=== PATIENT | female | born 1980 | race American Indian/Alaskan Native ===

== ENCOUNTER 2017-08-30 18:56 | Inpatient (IN) | payer OTHER ==
[2017-08-30 18:56] VITALS: BMI 27.3
[2017-08-30] MEDS ORDERED: Sodium Chloride 0.9% 1,000 ML IV STA ×2 (19:13→19:15)
[2017-08-30 19:41] LABS: BASO # 0.1 K/uL (0.0-0.2); BASO % 0.4 % (0.0-2.0); EOS # 0.1 K/uL (0.0-0.7); EOS % 0.5 % (0.0-4.0); HEMATOCRIT 24.3 % (34.0-47.0); LYMPH # 2.4 K/uL (1.0-4.3); LYMPH % 16.8 % (20.0-40.0); MEAN CORPUSCULAR HEMOGLOBIN 31.8 pg (27.0-31.0); MEAN CORPUSCULAR HGB CONC 33.1 g/dL (33.0-37.0); MEAN PLATELET VOLUME 8.1 fL (7.2-11.7); MONO # 0.6 K/uL (0.0-0.8); RED CELL DISTRIBUTION WIDTH 16.5 % (11.5-14.5)
[2017-08-30 19:44] LABS: WHITE BLOOD COUNT 14.5 K/uL (4.8-10.8)
[2017-08-30 19:45] LABS: MEAN CELL VOLUME 96.2 fL (81.0-99.0); RBC URINE 1 /hpf (0-3); URINE BACTERIA RARE (<OCC); URINE BILIRUBIN NEGATIVE (NEGATIVE); URINE BLOOD NEGATIVE (NEGATIVE); URINE GLUCOSE (UA) NORMAL (Normal); URINE KETONE TRACE mg/dL (NEGATIVE); URINE LEUKOCYTE ESTERASE NEG Leu/uL (Negative); URINE PROTEIN NEGATIVE (NEGATIVE); WBC URINE 4 /hpf (0-5)
[2017-08-30 19:46] LABS: URINE COLOR YELLOW (YELLOW)
[2017-08-30 19:49] LABS: INR 1.3
[2017-08-30 19:50] LABS: CHLORIDE 79 mmol/L (98-107)
[2017-08-30 19:51] LABS: SODIUM 121 mmol/L (132-148)
[2017-08-30 19:52] LABS: POTASSIUM 2.5 mmol/L (3.6-5.2)
[2017-08-30 19:53] LABS: ALKALINE PHOSPHATASE 117 U/L (38-126); ALT/SGPT 28 U/L (9-52); AST/SGOT 72 U/L (14-36); BILIRUBIN,TOTAL 1.1 mg/dL (0.2-1.3); BLOOD UREA NITROGEN 10 mg/dL (7-17); CARBON DIOXIDE 15 mmol/L (22-30); GFR AFRICAN-AMERICAN > 60; TOTAL PROTEIN 6.5 g/dL (6.3-8.3)
[2017-08-30 19:54] LABS: ALCOHOL SERUM 16 mg/dl (0-10); CALCIUM 8.2 mg/dl (8.6-10.4); GLUCOSE,RANDOM 175 mg/dL (65-105); MAGNESIUM 1.3 mg/dL (1.6-2.3)
[2017-08-30 19:57] LABS: ABG MECHANICAL RATE 16; ARTERIAL BLOOD GAS MODE PRVC; ATERIAL BLOOD GAS PEEP 5; DRAW SITE RBA
[2017-08-30] MEDS ORDERED: Magnesium Sulfate 1 gm in D5W 1 GM/100 ML BAG IVPB STA (19:57)
[2017-08-30] MEDS ORDERED: Magnesium Sulfate 1 gm in D5W 1 GM/100 ML BAG IVPB ONE (20:09)
--- NOTE | 2017-08-30 20:37 | CP.PCM.CON ---
History of Present Illness - History of Present Illness History of Present Illness: 36yo M. PMHx severe ETOH abuse. Found unconscious by today. EMS called , asystole >> compressions >> PEA >> 2 rounds of epinephrine >> ROSC. Brought into ED unconscious. Hypothermia protocol to be initiated in ICU. Review of Systems - Review of Systems Systems not reviewed;Unavailable: Altered Mental Status (unconscious) Past Patient History - Infectious Disease Hx of Infectious Diseases: None - Past Social History Smoking Status: Light Smoker < 10 Cigarettes Daily - CARDIAC Hx Cardiac Disorders: No Other/Comment: As per family member : cardiac history of heart going "Fast" - PULMONARY Hx Respiratory Disorders: No - NEUROLOGICAL Hx Neurological Disorder: No - HEENT Hx HEENT Problems: No - RENAL Hx Chronic Kidney Disease: No - ENDOCRINE/METABOLIC Hx Endocrine Disorders: No - HEMATOLOGICAL/ONCOLOGICAL Hx Blood Disorders: Yes (THROMBOCYTOPENIA) Hx Anemia: Yes Hx Blood Transfusions: Yes - INTEGUMENTARY Hx Dermatological Problems: Yes (HAS MULTIPLE HEALED OPEN LESION TO UPPER ARM, DARKENED SKIN DISCOLOR LLE) Hx Eczema: Yes Other/Comment: H/O OF HAVING HEAD LICE - MUSCULOSKELETAL/RHEUMATOLOGICAL Hx Musculoskeletal Disorders: No Hx Falls: Yes Hx Unsteady Gait: Yes - GASTROINTESTINAL Hx Gastrointestinal Disorders: No (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) HX Swallowing Problems: Yes (SORE THROAT 9-6-14) - GENITOURINARY/GYNECOLOGICAL Hx Genitourinary Disorders: Yes (6 ABORTIONS,3 CHILDREN ,H/O OF C SECTIONS X3) Other/Comment: MENORRHAGIA - PSYCHIATRIC Hx Psychophysiologic Disorder: Yes (ALCOHOLISM,2 DRINKS A DAY,SMOKES CIGARETTES PPD) Hx Depression: Yes Hx Emotional Abuse: No Hx Physical Abuse: No Hx Substance Use: No - SURGICAL HISTORY Hx Section: Yes - ANESTHESIA Hx Anesthesia: Yes Hx Anesthesia Reactions: No Hx Malignant Hyperthermia: No Meds Allergies/Adverse Reactions: Allergies Allergy/AdvReac Type Severity Reaction Status Date / Time PORK Allergy NAUSEA Verified 01/05/17 11:15 tomato Allergy NAUSEA Verified 01/05/17 11:17 wheat Allergy NAUSEA Verified 01/05/17 11:16 - Medications Medications: Current Medications Potassium Chloride (Potassium Chloride 20 Meq/100 Ml) 20 meq in 100 mls @ 50 mls/hr IVPB ONCE STA Stop: 08/30/17 21:56 Physical Exam - Head Exam Head Exam: ATRAUMATIC, NORMAL INSPECTION, NORMOCEPHALIC - Eye Exam Pupil Exam: Fixed - Neck Exam Neck exam: Positive for: Normal Inspection - Respiratory Exam Respiratory Exam: Clear to Auscultation Bilateral, NORMAL BREATHING PATTERN (on vent) - GI/Abdominal Exam GI & Abdominal Exam: Normal Bowel Sounds, Soft. absent: Tenderness - Neurological Exam Additional comments: comatose Results - Vital Signs Recent Vital Signs: Last Vital Signs Temp Pulse 104 H 08/30/17 19:19 Resp BP Pulse Ox - Labs Result Diagrams: 08/30/17 19:30 08/30/17 19:30 Labs: Laboratory Results - last 24 hr 08/30/17 08/30/17 08/30/17 19:01 19:30 19:30 WBC 14.5 H D RBC 2.52 L Hgb 8.0 L D Hct 24.3 L MCV 96.2 D MCH 31.8 H MCHC 33.1 RDW 16.5 H Plt Count 255 D MPV 8.1 Neut % (Auto) 78.3 H Lymph % (Auto) 16.8 L [place] % (Auto) 4.0 Eos % (Auto) 0.5 Baso % (Auto) 0.4 Neut # 11.4 H Lymph # 2.4 [place] # 0.6 Eos # 0.1 Baso # 0.1 PT 14.4 H INR 1.3 APTT 28 Puncture Site pCO2 pO2 HCO3 ABG pH ABG Total CO2 ABG O2 Saturation ABG Base Excess Stephen Test ABG Potassium A-a O2 Difference Respiratory Index Glucose Lactate Vent Mode Mechanical Rate FiO2 Tidal Volume PEEP Crit Value Called To Crit Value Called By Crit Value Read Back Blood Gas Notified Time Sodium Potassium Chloride Carbon Dioxide Anion Gap BUN Creatinine Est GFR ( Amer) Est GFR (Non-Af Amer) POC Glucose (mg/dL) 219 H Random Glucose Calcium Magnesium Total Bilirubin AST ALT Alkaline Phosphatase Total Creatine Kinase CK-MB (Mass) Troponin I, Quant NT-Pro-B Natriuret Pep Total Protein Albumin Globulin Albumin/Globulin Ratio Beta HCG, Quant Arterial Blood Potassium Urine Color Urine Clarity Urine pH Ur Specific [place] Urine Protein Urine Glucose (UA) Urine Ketones Urine Blood Urine Nitrate Urine Bilirubin Urine Urobilinogen Ur Leukocyte Esterase Urine WBC (Auto) Urine RBC (Auto) Urine Bacteria Urine HCG, Qual Urine Opiates Screen Urine Methadone Screen Ur Barbiturates Screen Ur Phencyclidine Scrn Ur Amphetamines Screen U Benzodiazepines Scrn U Oth Cocaine Metabols U Cannabinoids Screen Alcohol, Quantitative Serum Ketones 08/30/17 08/30/17 08/30/17 19:30 19:30 19:30 WBC RBC Hgb Hct MCV MCH MCHC RDW Plt Count MPV Neut % (Auto) Lymph % (Auto) [place] % (Auto) Eos % (Auto) Baso % (Auto) Neut # Lymph # [place] # Eos # Baso # PT INR APTT Puncture Site pCO2 pO2 HCO3 ABG pH ABG Total CO2 ABG O2 Saturation ABG Base Excess Stephen Test ABG Potassium A-a O2 Difference Respiratory Index Glucose Lactate Vent Mode Mechanical Rate FiO2 Tidal Volume PEEP Crit Value Called To Crit Value Called By Crit Value Read Back Blood Gas Notified Time Sodium 121 L Potassium 2.5 L* Chloride 79 L Carbon Dioxide 15 L Anion Gap 30 H BUN 10 Creatinine 0.5 L Est GFR ( Amer) > 60 Est GFR (Non-Af Amer) > 60 POC Glucose (mg/dL) Random Glucose 175 H Calcium 8.2 L Magnesium 1.3 L Total Bilirubin 1.1 AST 72 H ALT 28 Alkaline Phosphatase 117 Total Creatine Kinase 28 L CK-MB (Mass) 0.28 Troponin I, Quant < 0.0120 NT-Pro-B Natriuret Pep 48.5 Total Protein 6.5 Albumin 3.3 L Globulin 3.2 Albumin/Globulin Ratio 1.0 Beta HCG, Quant < 2.39 Arterial Blood Potassium Urine Color Yellow Urine Clarity Clear Urine pH 6.0 Ur Specific [place] 1.011 Urine Protein Negative Urine Glucose (UA) Normal Urine Ketones Trace Urine Blood Negative Urine Nitrate Negative Urine Bilirubin Negative Urine Urobilinogen 4.0 H Ur Leukocyte Esterase Neg Urine WBC (Auto) 4 Urine RBC (Auto) 1 Urine Bacteria Rare Urine HCG, Qual Negative Urine Opiates Screen Negative Urine Methadone Screen Negative Ur Barbiturates Screen Negative Ur Phencyclidine Scrn Negative Ur Amphetamines Screen Negative U Benzodiazepines Scrn Positive U Oth Cocaine Metabols Negative U Cannabinoids Screen Positive Alcohol, Quantitative 16 H Serum Ketones Negative 08/30/17 19:54 WBC RBC Hgb Hct MCV MCH MCHC RDW Plt Count MPV Neut % (Auto) Lymph % (Auto) [place] % (Auto) Eos % (Auto) Baso % (Auto) Neut # Lymph # [place] # Eos # Baso # PT INR APTT Puncture Site Rba pCO2 26 L pO2 459 H HCO3 20.8 L ABG pH 7.43 ABG Total CO2 18.1 L ABG O2 Saturation 100.5 H ABG Base Excess -5.4 L Stephen Test Na ABG Potassium 1.7 L* A-a O2 Difference 222.0 Respiratory Index 0.5 Glucose 145 H Lactate 8.1 H* Vent Mode Prvc Mechanical Rate 16 FiO2 100.0 Tidal Volume 450 PEEP 5 Crit Value Called To Mora tom Crit Value Called By Mian Crit Value Read Back Y Blood Gas Notified Time 1956 Sodium 129.0 L Potassium Chloride 94.0 L Carbon Dioxide Anion Gap BUN Creatinine Est GFR ( Amer) Est GFR (Non-Af Amer) POC Glucose (mg/dL) Random Glucose Calcium Magnesium Total Bilirubin AST ALT Alkaline Phosphatase Total Creatine Kinase CK-MB (Mass) Troponin I, Quant NT-Pro-B Natriuret Pep Total Protein Albumin Globulin Albumin/Globulin Ratio Beta HCG, Quant Arterial Blood Potassium 1.7 L* Urine Color Urine Clarity Urine pH Ur Specific [place] Urine Protein Urine Glucose (UA) Urine Ketones Urine Blood Urine Nitrate Urine Bilirubin Urine Urobilinogen Ur Leukocyte Esterase Urine WBC (Auto) Urine RBC (Auto) Urine Bacteria Urine HCG, Qual Urine Opiates Screen Urine Methadone Screen Ur Barbiturates Screen Ur Phencyclidine Scrn Ur Amphetamines Screen U Benzodiazepines Scrn U Oth Cocaine Metabols U Cannabinoids Screen Alcohol, Quantitative Serum Ketones Assessment & Plan (1) Cardiac arrest Assessment and Plan: Neuro: Patient in comatose state, status post cardiac arrest. (08/30) Initiating hypothermia protocol. Pulm: Acute respiratory failure, intubated and on vent. CV: Hemodynamically stable Hem: No acute issues Renal: Hypokalemic and hyponatremic, will supplement. NS@150. Endo: No acute issues, will monitor blood glucose. GI: Nothing by mouth ID: No acute issues no obvious source of infection. DVT proph - heparin subcutaneous GI proph - Protonix IV cheema for strict I/O's during acute illness Code status - full code Critical Care Time spent 35 minutes The documented time is cumulative and includes review of patient data/exams/labs /chart review and examination of the patient on rounds and throughout the day; time is exclusive of any procedures or teaching time. Status: Acute
[2017-08-30] MEDS: Sodium Chloride 0.9% 1,000 ML IV SCH (20:51)
[2017-08-30] MEDS ORDERED: Iodixanol 320 MG/ML 100 ML BOTTLE IV ONE (20:59)
--- NOTE | 2017-08-30 21:02 | C.PDOC ---
History Of Present Illness Pt was found by unresponsive in bathroom. He lowered her to the ground and called 911. EMS found pt in asystole and started ACLS and regained pulses. Upon arrival to the ED pt is hypotensive and tachycardic. Time Seen by Provider: 08/30/17 19:11 Chief Complaint (Nursing): Cardiac Arrest History Per: EMS Reason For Code Blue: Full Arrest Circumstances: Brought To ED By EMS Arrest Witnessed By: Family CPR Initiated Prior To MD Arrival?: Yes Down-Time Before ACLS: Unknown Treatment Initiated Prior To MD Arrival: Yes: CPR, BVM Ventilations, Intubation , ACLS Medication Initiation, Other (IO access) Medications Given Prior To MD Arrival: Yes: Epinephrine - Initial Findings Mentation: Unresponsive Rhythm: Asystole Past Medical History Reviewed: Historical Data, Nursing Documentation, Vital Signs Vital Signs: Last Vital Signs Temp Pulse 104 H 08/30/17 19:19 Resp BP Pulse Ox - Medical History PMH: Anemia, Depression, Pneumonia Other PMH: Alcohol abuse. - [facility] Procedures COLONOSCOPY (11/25/13) ESOPHAGOGASTRODUODENOSCOPY [EGD] W/CLOSED BIOPSY (11/25/13) PACKED CELL TRANSFUSION (07/19/14) THERAPEUTIC ERYTHROCYTAPHERESIS (11/25/13) Family History: States: Unknown Family Hx - Social History Hx Tobacco Use: Yes Hx Alcohol Use: Yes (LAST DRINK PINT OF [place] 9-3-14.2 DRINKS A DAY.) Hx Substance Use: No Review Of Systems Review Of Systems: ROS cannot be obtained secondary to pt's inabilty to answer questions. Physical Exam - Physical Exam Appears: Other (Unresponsive. ) Skin: Dry, Pale Head: Atraumatic Eye(s): bilateral: Other (pupils small but equal) Oral Mucosa: Other (Intubated) Neck: Normal ROM, No Step Off Deformity, Supple Chest: Symmetrical, No Deformity Cardiovascular: Rhythm Regular Respiratory: Normal Breath Sounds (with bagging) Gastrointestinal/Abdominal: Soft Extremity: Normal ROM, No Deformity, Other (IO in left tibia) Neurological/Psych: No Response To Commands Pain Response: No Response To Pain ED Course And Treatment - Laboratory Results Result Diagrams: 08/30/17 19:30 08/30/17 19:30 Lab Interpretation: Abnormal Interpretation Of Abnormal: Anemia. Hypokalemia. Hypomagnesemia. Urine POC: Negative ECG: Interpreted By Me, Viewed By Me ECG Rhythm: Sinus Tachycardia, Nonspecific Changes ECG Interpretation: Abnormal Interpretation Of ECG: Prolonged QT Rate From EC - Radiology CXR: Interpreted by Me, Viewed By Me CXR Interpretation: Yes: No Acute Disease, Other (ETT in place) - Physician Consult Information Physician Contacted: Jimbo Pete (ICU) Outcome Of Conversation: He accepted pt to ICU. Progress - Interventions Interventions:: Observation, Intravenous fluid, Oxygen - Medications Administered Intravenous: Other (KCl, Mg.) - Data Reviewed Data Reviewed: Lab, Diagnostic imaging, EKG, Old records - Patient Status Patient status: Partially improved, Critical - Critical Care Citical Care: Excluding Proc Time Critical Care Time: 60 minutes - Continuity of Care Discussed patient case with:: Family-HIPPA compliant, ED Nurse, On-call PMD-pt unassigned Discussed pt. case with datastage consultant/specialty: Pulmonary/Crit. Care - Patient Plan Patient Plan: Admission, ICU Disposition Discussed With : Phoenix Caballero Comment: She accepted pt on her service. Doctor Will See Patient In The: Hospital Counseled Patient/Family Regarding: Studies Performed, Diagnosis - Disposition Disposition: HOSPITALIZED Disposition Time: 20:30 Condition: CRITICAL - Clinical Impression Clinical Impression: Hypokalemia, Cardiac arrest, Anemia
--- NOTE | 2017-08-30 22:13 | CT ---
EXAM: CT Head Without Intravenous Contrast EXAM DATE/TIME: 08/30/2017 8:51 PM CLINICAL HISTORY: 36 years old, female; Signs and symptoms; Other: Unresponsive; Additional info: Cardiac arrest, R/O ich TECHNIQUE: Axial computed tomography images of the head/brain without intravenous contrast. All CT scans at this facility use one or more dose reduction techniques, viz.: automated exposure control; ma/kV adjustment per patient size (including targeted exams where dose is matched to indication; i.e. head); or iterative reconstruction technique. COMPARISON: No relevant prior studies available. FINDINGS: Endotracheal tube. No intracranial hemorrhage. No intracranial edema. No evidence of infarct. Trace mucosal thickening in the ethmoid sinuses. The mastoid air cells are clear. IMPRESSION: No acute findings.
--- NOTE | 2017-08-30 22:50 | CT ---
EXAM: CT Abdomen and Pelvis With Intravenous Contrast EXAM DATE/TIME: 08/30/2017 8:51 PM CLINICAL HISTORY: 36 years old, female; Pain; Abdominal pain; Generalized; Additional info: S/P cardiac arrest, R/O hemorrhage TECHNIQUE: Axial computed tomography images of the abdomen and pelvis with intravenous contrast. All CT scans at this facility use one or more dose reduction techniques, viz.: automated exposure control; ma/kV adjustment per patient size (including targeted exams where dose is matched to indication; i.e. head); or iterative reconstruction technique. Coronal and sagittal reformatted images were created and reviewed. CONTRAST: 100 mL of visipaque 320 administered intravenously. COMPARISON: No relevant prior studies available. FINDINGS: There is bibasilar atelectasis. The liver is decreased in attenuation consistent with fatty infiltration. The spleen and kidneys are normal. The gallbladder is markedly dilated and contains small gallstones. The pancreas is markedly abnormal being enlarged and heterogeneous with stranding in the surrounding fat. Stranding suggests at least some degree of inflammatory/infectious process. Within the pancreatic body, there are numerous large areas of low attenuation interspersed within the pancreatic parenchyma. Necrotic or hemorrhagic pancreatitis would be possible. Neoplasm would also be a consideration. Along the superior aspect the body/tail junction, is a rounded 5 x 3.7 cm area of fluid density. Pseudocyst, abscess, and neoplasm are possibilities. There are loops of fluid filled small bowel in the right abdomen and pelvis. There is fluid and stool throughout portions of the colon. Findings suggest some degree of enteritis. Free fluid is present in the pelvis A normal appendix is identified axial series 2 images 48 through 55. Andino catheter. Pelvic phleboliths. No aortic aneurysm or dissection. IMPRESSION: Markedly abnormal pancreas being enlarged with numerous areas of low attenuation some of which are dispersed within the parenchyma and some of which are rounded collections as discussed above. Necrotic/hemorrhagic pancreatitis and cystic neoplasms would both be considerations. Correlation with history as well correlation with any prior studies would be helpful. Posterior gastric wall thickening which could be either a primary or secondary process. Cholelithiasis. Enteritis involving small and large bowel.
[2017-08-30] MEDS: Thiamine 100 mg/ml Inj IV SCH (23:00)
[2017-08-31] MEDS ORDERED: Midazolam 2 MG/2 ML VIAL IVP PRN (00:09)
[2017-08-31 01:34] LABS: CHLORIDE 85 mmol/L (98-107); POTASSIUM 2.9 mmol/L (3.6-5.2); SODIUM 125 mmol/L (132-148)
[2017-08-31 01:37] LABS: BLOOD UREA NITROGEN 9 mg/dL (7-17); CARBON DIOXIDE 22 mmol/L (22-30); GFR AFRICAN-AMERICAN > 60
[2017-08-31 01:38] LABS: CALCIUM 7.8 mg/dl (8.6-10.4); GLUCOSE,RANDOM 153 mg/dL (65-105); MAGNESIUM 1.3 mg/dL (1.6-2.3); PHOSPHOROUS 2.2 mg/dL (2.5-4.5)
[2017-08-31 02:20] LABS: IRON 227 ug/dL (37-170)
[2017-08-31] MEDS: Sodium Chloride 0.9% 1,000 ML IV SCH ×4 (04:10→17:48)
[2017-08-31] MEDS: Midazolam 2 MG/2 ML VIAL IVP PRN ×2 (04:27→07:00)
[2017-08-31] MEDS: levETIRAcetam 500 MG in Sodium Chloride 0.9% 100 ML IVPB SCH ×2 (04:28→16:44)
[2017-08-31 05:37] LABS: ABG ALLEN TEST POS; ABG MECHANICAL RATE 14; ARTERIAL BLOOD GAS MODE PRVC; ATERIAL BLOOD GAS PEEP 5; CARBOXYHEMOGLOBIN 1.6 % (0.5-1.5); DRAW SITE L RAD; HHB -0.1 % (0.0-5.0); METHEMOGLOBIN 1.6 % (0.0-3.0)
[2017-08-31] MEDS: Magnesium Sulfate 1 gm in D5W 1 GM/100 ML BAG IVPB SCH ×6 (06:24→07:43)
[2017-08-31 06:39] LABS: BASO % 0.3 % (0.0-2.0); EOS % 0.1 % (0.0-4.0); HEMATOCRIT 23.1 % (34.0-47.0); LYMPH # 0.8 K/uL (1.0-4.3); LYMPH % 7.1 % (20.0-40.0); MEAN CELL VOLUME 96.1 fL (81.0-99.0); MEAN CORPUSCULAR HEMOGLOBIN 32.1 pg (27.0-31.0); MEAN CORPUSCULAR HGB CONC 33.4 g/dL (33.0-37.0); MEAN PLATELET VOLUME 7.8 fL (7.2-11.7); MONO # 0.8 K/uL (0.0-0.8); NRBC % 0.1 % (0.0-2.0); PLATELET COUNT 156 K/uL (130-400); RED CELL DISTRIBUTION WIDTH 16.6 % (11.5-14.5); WHITE BLOOD COUNT 11.6 K/uL (4.8-10.8)
[2017-08-31 06:51] LABS: CHLORIDE 88 mmol/L (98-107); SODIUM 124 mmol/L (132-148)
[2017-08-31 06:53] LABS: ALB/GLOB RATIO 0.9 (1.0-2.1); ALKALINE PHOSPHATASE 114 U/L (38-126); AST/SGOT 65 U/L (14-36); BILIRUBIN,TOTAL 1.7 mg/dL (0.2-1.3); BLOOD UREA NITROGEN 10 mg/dL (7-17); CARBON DIOXIDE 24 mmol/L (22-30); GFR AFRICAN-AMERICAN > 60; TOTAL PROTEIN 6.4 g/dL (6.3-8.3)
[2017-08-31 06:54] LABS: ALT/SGPT 32 U/L (9-52); CALCIUM 7.9 mg/dl (8.6-10.4); GLUCOSE,RANDOM 93 mg/dL (65-105); MAGNESIUM 1.4 mg/dL (1.6-2.3); PHOSPHOROUS 1.3 mg/dL (2.5-4.5)
--- NOTE | 2017-08-31 07:57 | RAD ---
PROCEDURE: CHEST RADIOGRAPH, 1 VIEW HISTORY: Intubated COMPARISON: 04/28/2013 FINDINGS: LUNGS: Endotracheal tube extending into the mid thoracic trachea. Mild venous congestion. Overlying external wires and leads. PLEURA: No pneumothorax or pleural fluid seen. CARDIOVASCULAR: Normal. OSSEOUS STRUCTURES: No significant abnormalities. VISUALIZED UPPER ABDOMEN: Normal. OTHER FINDINGS: None. IMPRESSION: Endotracheal tube extending into the mid thoracic trachea. Mild venous congestion. Overlying external wires and leads.
[2017-08-31] MEDS ORDERED: Potassium Phosphate 20 MMOLE in Sodium Chloride 0.9% 250 ML IV ONE (08:00)
[2017-08-31 08:43] LABS: EOSINOPHIL 1 % (0-4); NEUTROPHIL 87 % (50-75); TOTAL CELLS COUNTED 100
[2017-08-31] MEDS: Midazolam 50 mg/10 ml 100 MG in Sodium Chloride 0.9% 80 ML IV SCH ×2 (09:07→09:30)
[2017-08-31] MEDS ORDERED: Thiamine 100 mg/ml Inj IV ONE (09:14)
[2017-08-31] MEDS ORDERED: Thiamine 500 MG in Sodium Chloride 0.9% 250 ML IV ONE (10:00)
--- NOTE | 2017-08-31 10:02 | CP.PCM.PN ---
Subjective - Date & Time of Evaluation Date of Evaluation: 08/31/17 Time of Evaluation: 09:00 - Subjective Subjective: H&P dictated #[id number] Objective - Vital Signs/Intake and Output Vital Signs (last 24 hours): Temp Pulse Resp BP Pulse Ox 92.4 F L 87 21 137/100 H 100 08/31/17 09:00 08/31/17 09:00 08/31/17 09:00 08/31/17 09:00 08/31/17 04:00 Intake and Output: 08/31/17 08/31/17 06:59 18:59 Intake Total 1225 468 Output Total 765 70 Balance 460 398 - Medications Medications: Current Medications Heparin Sodium (Porcine) (Heparin) 5,000 units SC Q12 EUSEBIO Last Admin: 08/30/17 23:04 Dose: 5,000 units Sodium Chloride (Sodium Chloride 0.9%) 1,000 mls @ 150 mls/hr IV .Q6H40M EUSEBIO Last Admin: 08/31/17 04:10 Dose: Not Given Levetiracetam 500 mg/ Sodium (Chloride) 105 mls @ 420 mls/hr IVPB Q12H EUSEBIO Last Admin: 08/31/17 04:28 Dose: 420 mls/hr Potassium Phosphate 20 mmole/ (Sodium Chloride) 256.6667 mls @ 63 mls/hr IV ONCE ONE Stop: 08/31/17 12:04 Last Admin: 08/31/17 09:09 Dose: 63 mls/hr Midazolam HCl 100 mg/ Sodium (Chloride) 100 mls @ 5 mls/hr IV .Q20H EUSEBIO; 5 MG/ HR PRN Reason: Protocol Last Admin: 08/31/17 09:07 Dose: 5 mg/hr, 5 mls/hr Thiamine HCl 500 mg/ Sodium (Chloride) 255 mls @ 510 mls/hr IV ONCE ONE Stop: 08/31/17 10:29 Midazolam HCl (Versed Inj) 1 mg IVP Q2H PRN PRN Reason: Agitation Last Admin: 08/31/17 07:00 Dose: 1 mg Pantoprazole Sodium (Protonix Inj) 40 mg IVP DAILY EUSEBIO Thiamine HCl (Vitamin B1 Inj) 100 mg IV DAILY EUSEBIO Last Admin: 08/30/17 23:00 Dose: 100 mg - Labs Labs: 08/31/17 06:26 08/31/17 06:26 PT 14.4 SECONDS (9.7-12.2) H 08/30/17 19:30 INR 1.3 08/30/17 19:30 APTT 28 SECONDS (21-34) 08/30/17 19:30
--- NOTE | 2017-08-31 10:23 | CP.PCM.CON ---
History of Present Illness - History of Present Illness History of Present Illness: full consult to f/up discussed with RN and PMD ,continue fluid as discussed This patient who is 36 years of age I was called to see her for abnormal electrolyte. The history was taken from the medical records because the patient is intubated and sedated The history indicated that she was fond and conscious and she has what appeared to be cardiac arrest she has been resuscitated intubated and she is in intensive care unit now and toxicology level noted in the urine including alcohol about 16 No history of as to what medication she has been taking that other medical problem she has at this point Review of Systems - Review of Systems Systems not reviewed;Unavailable: Respiratory Distress - Constitutional Constitutional: absent: Chills - EENT Eyes: As Per HPI Ears: As Per HPI Nose/Mouth/Throat: Nasal Congestion - Cardiovascular Cardiovascular: As Per HPI, Rapid Heart Rate. absent: Edema, Leg Edema - Respiratory Respiratory: As Per HPI, Cough, Dyspnea Additional comments: Intubated - Gastrointestinal Gastrointestinal: absent: Abdominal Pain, Coffee Ground Emesis, Vomiting - Musculoskeletal Musculoskeletal: As Per HPI Additional comments: Intubated - Neurological Neurological: As Per HPI - Psychiatric Psychiatric: As Per HPI - Endocrine Endocrine: As Per HPI Past Patient History - Infectious Disease Hx of Infectious Diseases: None - Past Medical History & Family History Past Medical History?: Yes - Past Social History Smoking Status: Never Smoked - CARDIAC Hx Cardiac Disorders: No Other/Comment: As per family member : cardiac history of heart going "Fast" - PULMONARY Hx Pneumonia: Yes Other/Comment: smoker - NEUROLOGICAL Hx Neurological Disorder: No - HEENT Hx HEENT Problems: No - RENAL Hx Chronic Kidney Disease: No - ENDOCRINE/METABOLIC Hx Endocrine Disorders: No - HEMATOLOGICAL/ONCOLOGICAL Hx Anemia: Yes - INTEGUMENTARY Hx Dermatological Problems: Yes (HAS MULTIPLE HEALED OPEN LESION TO UPPER ARM, DARKENED SKIN DISCOLOR LLE) Hx Eczema: Yes Other/Comment: H/O OF HAVING HEAD LICE - MUSCULOSKELETAL/RHEUMATOLOGICAL Hx Musculoskeletal Disorders: No Hx Falls: Yes Hx Unsteady Gait: Yes - GASTROINTESTINAL Hx Gastrointestinal Disorders: No (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) HX Swallowing Problems: Yes (SORE THROAT 9-6-14) - GENITOURINARY/GYNECOLOGICAL Hx Genitourinary Disorders: Yes (6 ABORTIONS,3 CHILDREN ,H/O OF C SECTIONS X3) Other/Comment: MENORRHAGIA - PSYCHIATRIC Hx Depression: Yes Hx Substance Use: No - SURGICAL HISTORY Hx Section: Yes - ANESTHESIA Hx Anesthesia: Yes Hx Anesthesia Reactions: No Hx Malignant Hyperthermia: No Meds Allergies/Adverse Reactions: Allergies Allergy/AdvReac Type Severity Reaction Status Date / Time PORK Allergy NAUSEA Verified 01/05/17 11:15 tomato Allergy NAUSEA Verified 01/05/17 11:17 wheat Allergy NAUSEA Verified 01/05/17 11:16 - Medications Medications: Current Medications Heparin Sodium (Porcine) (Heparin) 5,000 units SC Q12 [facility] Last Admin: 08/30/17 23:04 Dose: 5,000 units Sodium Chloride (Sodium Chloride 0.9%) 1,000 mls @ 150 mls/hr IV .Q6H40M [facility] Last Admin: 08/31/17 04:10 Dose: Not Given Levetiracetam 500 mg/ Sodium (Chloride) 105 mls @ 420 mls/hr IVPB Q12H [facility] Last Admin: 08/31/17 04:28 Dose: 420 mls/hr Potassium Phosphate 20 mmole/ (Sodium Chloride) 256.6667 mls @ 63 mls/hr IV ONCE ONE Stop: 08/31/17 12:04 Last Admin: 08/31/17 09:09 Dose: 63 mls/hr Midazolam HCl 100 mg/ Sodium (Chloride) 100 mls @ 5 mls/hr IV .Q20H EUSEBIO; 5 MG/ HR PRN Reason: Protocol Last Admin: 08/31/17 09:07 Dose: 5 mg/hr, 5 mls/hr Thiamine HCl 500 mg/ Sodium (Chloride) 255 mls @ 510 mls/hr IV ONCE ONE Stop: 08/31/17 10:29 Midazolam HCl (Versed Inj) 1 mg IVP Q2H PRN PRN Reason: Agitation Last Admin: 08/31/17 07:00 Dose: 1 mg Pantoprazole Sodium (Protonix Inj) 40 mg IVP DAILY [facility] Thiamine HCl (Vitamin B1 Inj) 100 mg IV DAILY [facility] Last Admin: 08/30/17 23:00 Dose: 100 mg Physical Exam - Constitutional Appears: In Acute Distress, Agitated, Confused - Eye Exam Eye Exam: Conjunctival injection - ENT Exam ENT Exam: Mucous Membranes Moist - Neck Exam Neck exam: Negative for: Lymphadenopathy - Respiratory Exam Respiratory Exam: Rhonchi. absent: Chest Wall Tenderness - Cardiovascular Exam Cardiovascular Exam: absent: JVD, Rubs - GI/Abdominal Exam GI & Abdominal Exam: Normal Bowel Sounds - Extremities Exam Extremities exam: Negative for: calf tenderness - Back Exam Back exam: absent: CVA tenderness (L), CVA tenderness (R) Results - Vital Signs Recent Vital Signs: Last Vital Signs Temp 92.4 F L 08/31/17 09:00 Pulse 87 08/31/17 09:00 Resp 21 08/31/17 09:00 BP 137/100 H 08/31/17 09:00 Pulse Ox 100 08/31/17 04:00 - Labs Result Diagrams: 08/31/17 06:26 08/31/17 12:35 Labs: Laboratory Results - last 24 hr 08/30/17 08/30/17 08/30/17 19:01 19:30 19:30 WBC 14.5 H D RBC 2.52 L Hgb 8.0 L D Hct 24.3 L MCV 96.2 D MCH 31.8 H MCHC 33.1 RDW 16.5 H Plt Count 255 D MPV 8.1 Neut % (Auto) 78.3 H Lymph % (Auto) 16.8 L [place] % (Auto) 4.0 Eos % (Auto) 0.5 Baso % (Auto) 0.4 Neut # 11.4 H Lymph # 2.4 [place] # 0.6 Eos # 0.1 Baso # 0.1 Neutrophils % (Manual) Lymphocytes % (Manual) Monocytes % (Manual) Eosinophils % (Manual) Platelet Estimate Polychromasia Hypochromasia (manual) Anisocytosis (manual) Target Cells PT 14.4 H INR 1.3 APTT 28 Puncture Site pCO2 pO2 HCO3 ABG pH ABG Total CO2 ABG O2 Saturation ABG Base Excess ABG Hemoglobin ABG Carboxyhemoglobin POC ABG HHb (Measured) ABG Methemoglobin Stephen Test ABG Potassium A-a O2 Difference Respiratory Index Hgb O2 Saturation Glucose Lactate Vent Mode Mechanical Rate FiO2 Tidal Volume PEEP Crit Value Called To Crit Value Called By Crit Value Read Back Blood Gas Notified Time Sodium Potassium Chloride Carbon Dioxide Anion Gap BUN Creatinine Est GFR ( Amer) Est GFR (Non-Af Amer) POC Glucose (mg/dL) 219 H Random Glucose Hemoglobin A1c Lactic Acid Uric Acid Calcium Phosphorus Magnesium Iron TIBC % Saturation Ferritin Total Bilirubin AST ALT Alkaline Phosphatase Total Creatine Kinase CK-MB (Mass) Troponin I Troponin I, Quant NT-Pro-B Natriuret Pep Total Protein Albumin Globulin Albumin/Globulin Ratio Vitamin B12 Folate TSH 3rd Generation Beta HCG, Quant Cortisol AM Sample Arterial Blood Potassium Urine Color Urine Clarity Urine pH Ur Specific Alicia Urine Protein Urine Glucose (UA) Urine Ketones Urine Blood Urine Nitrate Urine Bilirubin Urine Urobilinogen Ur Leukocyte Esterase Urine WBC (Auto) Urine RBC (Auto) Urine Bacteria Urine Osmolality Ur Random Sodium Ur Random Potassium Urine HCG, Qual Urine Opiates Screen Urine Methadone Screen Ur Barbiturates Screen Ur Phencyclidine Scrn Ur Amphetamines Screen U Benzodiazepines Scrn U Oth Cocaine Metabols U Cannabinoids Screen Alcohol, Quantitative Serum Ketones Blood Type Antibody Screen 08/30/17 08/30/17 08/30/17 19:30 19:30 19:30 WBC RBC Hgb Hct MCV MCH MCHC RDW Plt Count MPV Neut % (Auto) Lymph % (Auto) [place] % (Auto) Eos % (Auto) Baso % (Auto) Neut # Lymph # [place] # Eos # Baso # Neutrophils % (Manual) Lymphocytes % (Manual) Monocytes % (Manual) Eosinophils % (Manual) Platelet Estimate Polychromasia Hypochromasia (manual) Anisocytosis (manual) Target Cells PT INR APTT Puncture Site pCO2 pO2 HCO3 ABG pH ABG Total CO2 ABG O2 Saturation ABG Base Excess ABG Hemoglobin ABG Carboxyhemoglobin POC ABG HHb (Measured) ABG Methemoglobin Stephen Test ABG Potassium A-a O2 Difference Respiratory Index Hgb O2 Saturation Glucose Lactate Vent Mode Mechanical Rate FiO2 Tidal Volume PEEP Crit Value Called To Crit Value Called By Crit Value Read Back Blood Gas Notified Time Sodium 121 L Potassium 2.5 L* Chloride 79 L Carbon Dioxide 15 L Anion Gap 30 H BUN 10 Creatinine 0.5 L Est GFR ( Amer) > 60 Est GFR (Non-Af Amer) > 60 POC Glucose (mg/dL) Random Glucose 175 H Hemoglobin A1c Lactic Acid Uric Acid Calcium 8.2 L Phosphorus Magnesium 1.3 L Iron TIBC % Saturation Ferritin Total Bilirubin 1.1 AST 72 H ALT 28 Alkaline Phosphatase 117 Total Creatine Kinase 28 L CK-MB (Mass) 0.28 Troponin I Troponin I, Quant < 0.0120 NT-Pro-B Natriuret Pep 48.5 Total Protein 6.5 Albumin 3.3 L Globulin 3.2 Albumin/Globulin Ratio 1.0 Vitamin B12 Folate TSH 3rd Generation Beta HCG, Quant < 2.39 Cortisol AM Sample Arterial Blood Potassium Urine Color Yellow Urine Clarity Clear Urine pH 6.0 Ur Specific Alicia 1.011 Urine Protein Negative Urine Glucose (UA) Normal Urine Ketones Trace Urine Blood Negative Urine Nitrate Negative Urine Bilirubin Negative Urine Urobilinogen 4.0 H Ur Leukocyte Esterase Neg Urine WBC (Auto) 4 Urine RBC (Auto) 1 Urine Bacteria Rare Urine Osmolality Ur Random Sodium Ur Random Potassium Urine HCG, Qual Negative Urine Opiates Screen Negative Urine Methadone Screen Negative Ur Barbiturates Screen Negative Ur Phencyclidine Scrn Negative Ur Amphetamines Screen Negative U Benzodiazepines Scrn Positive U Oth Cocaine Metabols Negative U Cannabinoids Screen Positive Alcohol, Quantitative 16 H Serum Ketones Negative Blood Type Antibody Screen 08/30/17 08/30/17 08/30/17 19:31 19:54 22:38 WBC RBC Hgb Hct MCV MCH MCHC RDW Plt Count MPV Neut % (Auto) Lymph % (Auto) [place] % (Auto) Eos % (Auto) Baso % (Auto) Neut # Lymph # [place] # Eos # Baso # Neutrophils % (Manual) Lymphocytes % (Manual) Monocytes % (Manual) Eosinophils % (Manual) Platelet Estimate Polychromasia Hypochromasia (manual) Anisocytosis (manual) Target Cells PT INR APTT Puncture Site Rba pCO2 26 L pO2 459 H HCO3 20.8 L ABG pH 7.43 ABG Total CO2 18.1 L ABG O2 Saturation 100.5 H ABG Base Excess -5.4 L ABG Hemoglobin ABG Carboxyhemoglobin POC ABG HHb (Measured) ABG Methemoglobin Stephen Test Na ABG Potassium 1.7 L* A-a O2 Difference 222.0 Respiratory Index 0.5 Hgb O2 Saturation Glucose 145 H Lactate 8.1 H* Vent Mode Prvc Mechanical Rate 16 FiO2 100.0 Tidal Volume 450 PEEP 5 Crit Value Called To Mora tom Crit Value Called By Mian Crit Value Read Back Y Blood Gas Notified Time 1956 Sodium 129.0 L Potassium Chloride 94.0 L Carbon Dioxide Anion Gap BUN Creatinine Est GFR ( Amer) Est GFR (Non-Af Amer) POC Glucose (mg/dL) 181 H Random Glucose Hemoglobin A1c Lactic Acid Uric Acid Calcium Phosphorus Magnesium Iron TIBC % Saturation Ferritin Total Bilirubin AST ALT Alkaline Phosphatase Total Creatine Kinase CK-MB (Mass) Troponin I Troponin I, Quant NT-Pro-B Natriuret Pep Total Protein Albumin Globulin Albumin/Globulin Ratio Vitamin B12 Folate TSH 3rd Generation Beta HCG, Quant Cortisol AM Sample Arterial Blood Potassium 1.7 L* Urine Color Urine Clarity Urine pH Ur Specific Alicia Urine Protein Urine Glucose (UA) Urine Ketones Urine Blood Urine Nitrate Urine Bilirubin Urine Urobilinogen Ur Leukocyte Esterase Urine WBC (Auto) Urine RBC (Auto) Urine Bacteria Urine Osmolality Ur Random Sodium Ur Random Potassium Urine HCG, Qual Urine Opiates Screen Urine Methadone Screen Ur Barbiturates Screen Ur Phencyclidine Scrn Ur Amphetamines Screen U Benzodiazepines Scrn U Oth Cocaine Metabols U Cannabinoids Screen Alcohol, Quantitative Serum Ketones Blood Type O POSITIVE Antibody Screen Negative 08/31/17 08/31/17 08/31/17 01:21 01:21 01:21 WBC RBC Hgb Hct MCV MCH MCHC RDW Plt Count MPV Neut % (Auto) Lymph % (Auto) [place] % (Auto) Eos % (Auto) Baso % (Auto) Neut # Lymph # [place] # Eos # Baso # Neutrophils % (Manual) Lymphocytes % (Manual) Monocytes % (Manual) Eosinophils % (Manual) Platelet Estimate Polychromasia Hypochromasia (manual) Anisocytosis (manual) Target Cells PT INR APTT Puncture Site pCO2 pO2 HCO3 ABG pH ABG Total CO2 ABG O2 Saturation ABG Base Excess ABG Hemoglobin ABG Carboxyhemoglobin POC ABG HHb (Measured) ABG Methemoglobin Stephen Test ABG Potassium A-a O2 Difference Respiratory Index Hgb O2 Saturation Glucose Lactate Vent Mode Mechanical Rate FiO2 Tidal Volume PEEP Crit Value Called To Crit Value Called By Crit Value Read Back Blood Gas Notified Time Sodium 125 L Potassium 2.9 L Chloride 85 L Carbon Dioxide 22 Anion Gap 21 H BUN 9 Creatinine 0.4 L Est GFR ( Amer) > 60 Est GFR (Non-Af Amer) > 60 POC Glucose (mg/dL) Random Glucose 153 H Hemoglobin A1c Lactic Acid 5.5 H* Uric Acid Calcium 7.8 L Phosphorus 2.2 L Magnesium 1.3 L Iron 227 H TIBC 277 % Saturation 82 H Ferritin Total Bilirubin AST ALT Alkaline Phosphatase Total Creatine Kinase 78 CK-MB (Mass) Troponin I 0.0590 Troponin I, Quant NT-Pro-B Natriuret Pep Total Protein Albumin Globulin Albumin/Globulin Ratio Vitamin B12 Folate TSH 3rd Generation Beta HCG, Quant Cortisol AM Sample Arterial Blood Potassium Urine Color Urine Clarity Urine pH Ur Specific Alicia Urine Protein Urine Glucose (UA) Urine Ketones Urine Blood Urine Nitrate Urine Bilirubin Urine Urobilinogen Ur Leukocyte Esterase Urine WBC (Auto) Urine RBC (Auto) Urine Bacteria Urine Osmolality Ur Random Sodium Ur Random Potassium Urine HCG, Qual Urine Opiates Screen Urine Methadone Screen Ur Barbiturates Screen Ur Phencyclidine Scrn Ur Amphetamines Screen U Benzodiazepines Scrn U Oth Cocaine Metabols U Cannabinoids Screen Alcohol, Quantitative Serum Ketones Blood Type Antibody Screen 08/31/17 08/31/17 08/31/17 05:00 05:58 06:26 WBC RBC Hgb Hct MCV MCH MCHC RDW Plt Count MPV Neut % (Auto) Lymph % (Auto) [place] % (Auto) Eos % (Auto) Baso % (Auto) Neut # Lymph # [place] # Eos # Baso # Neutrophils % (Manual) Lymphocytes % (Manual) Monocytes % (Manual) Eosinophils % (Manual) Platelet Estimate Polychromasia Hypochromasia (manual) Anisocytosis (manual) Target Cells PT INR APTT Puncture Site L rad pCO2 26 L pO2 181 H HCO3 22.8 ABG pH 7.50 H ABG Total CO2 21.1 L ABG O2 Saturation 100.1 H ABG Base Excess -2.8 L ABG Hemoglobin 4.8 L ABG Carboxyhemoglobin 1.6 H POC ABG HHb (Measured) -0.1 L ABG Methemoglobin 1.6 Stephen Test Pos ABG Potassium A-a O2 Difference 72.0 Respiratory Index 0.4 Hgb O2 Saturation 97.0 Glucose Lactate Vent Mode Prvc Mechanical Rate 14 FiO2 40.0 Tidal Volume 450 PEEP 5 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4 Albumin/Globulin Ratio 0.9 L Vitamin B12 641 Folate 3.0 TSH 3rd Generation 0.40 L Beta HCG, Quant Cortisol AM Sample Arterial Blood Potassium Urine Color Urine Clarity Urine pH Ur Specific Alicia Urine Protein Urine Glucose (UA) Urine Ketones Urine Blood Urine Nitrate Urine Bilirubin Urine Urobilinogen Ur Leukocyte Esterase Urine WBC (Auto) Urine RBC (Auto) Urine Bacteria Urine Osmolality Ur Random Sodium Ur Random Potassium Urine HCG, Qual Urine Opiates Screen Urine Methadone Screen Ur Barbiturates Screen Ur Phencyclidine Scrn Ur Amphetamines Screen U Benzodiazepines Scrn U Oth Cocaine Metabols U Cannabinoids Screen Alcohol, Quantitative Serum Ketones Blood Type Antibody Screen 08/31/17 08/31/17 08/31/17 06:26 06:26 06:26 WBC RBC Hgb Hct MCV MCH MCHC RDW Plt Count MPV Neut % (Auto) Lymph % (Auto) [place] % (Auto) Eos % (Auto) Baso % (Auto) Neut # Lymph # [place] # Eos # Baso # Neutrophils % (Manual) Lymphocytes % (Manual) Monocytes % (Manual) Eosinophils % (Manual) Platelet Estimate Polychromasia Hypochromasia (manual) Anisocytosis (manual) Target Cells PT INR APTT Puncture Site pCO2 pO2 HCO3 ABG pH ABG Total CO2 ABG O2 Saturation ABG Base Excess ABG Hemoglobin ABG Carboxyhemoglobin POC ABG HHb (Measured) ABG Methemoglobin Stephen Test ABG Potassium A-a O2 Difference Respiratory Index Hgb O2 Saturation Glucose Lactate Vent Mode Mechanical Rate FiO2 Tidal Volume PEEP Crit Value Called To Crit Value Called By Crit Value Read Back Blood Gas Notified Time Sodium Potassium Chloride Carbon Dioxide Anion Gap BUN Creatinine Est GFR ( Amer) Est GFR (Non-Af Amer) POC Glucose (mg/dL) Random Glucose Hemoglobin A1c 5.9 Lactic Acid Uric Acid Calcium Phosphorus Magnesium Iron TIBC % Saturation 78 H Ferritin Total Bilirubin AST ALT Alkaline Phosphatase Total Creatine Kinase CK-MB (Mass) Troponin I Troponin I, Quant NT-Pro-B Natriuret Pep Total Protein Albumin Globulin Albumin/Globulin Ratio Vitamin B12 Folate TSH 3rd Generation Beta HCG, Quant Cortisol AM Sample 38.8 H Arterial Blood Potassium Urine Color Urine Clarity Urine pH Ur Specific Alicia Urine Protein Urine Glucose (UA) Urine Ketones Urine Blood Urine Nitrate Urine Bilirubin Urine Urobilinogen Ur Leukocyte Esterase Urine WBC (Auto) Urine RBC (Auto) Urine Bacteria Urine Osmolality Ur Random Sodium Ur Random Potassium Urine HCG, Qual Urine Opiates Screen Urine Methadone Screen Ur Barbiturates Screen Ur Phencyclidine Scrn Ur Amphetamines Screen U Benzodiazepines Scrn U Oth Cocaine Metabols U Cannabinoids Screen Alcohol, Quantitative Serum Ketones Blood Type Antibody Screen 08/31/17 08/31/17 08/31/17 06:26 06:33 08:59 WBC 11.6 H RBC 2.41 L Hgb 7.7 L Hct 23.1 L MCV 96.1 MCH 32.1 H MCHC 33.4 RDW 16.6 H Plt Count 156 MPV 7.8 Neut % (Auto) 85.5 H Lymph % (Auto) 7.1 L [place] % (Auto) 7.0 Eos % (Auto) 0.1 Baso % (Auto) 0.3 Neut # 9.9 H Lymph # 0.8 L [place] # 0.8 Eos # 0.0 Baso # 0.0 Neutrophils % (Manual) 87 H Lymphocytes % (Manual) 9 L Monocytes % (Manual) 3 Eosinophils % (Manual) 1 Platelet Estimate Normal Polychromasia Slight Hypochromasia (manual) Slight Anisocytosis (manual) Slight Target Cells Slight PT INR APTT Puncture Site pCO2 pO2 HCO3 ABG pH ABG Total CO2 ABG O2 Saturation ABG Base Excess ABG Hemoglobin ABG Carboxyhemoglobin POC ABG HHb (Measured) ABG Methemoglobin Stephen Test ABG Potassium A-a O2 Difference Respiratory Index Hgb O2 Saturation Glucose Lactate Vent Mode Mechanical Rate FiO2 Tidal Volume PEEP Crit Value Called To Crit Value Called By Crit Value Read Back Blood Gas Notified Time Sodium Potassium Chloride Carbon Dioxide Anion Gap BUN Creatinine Est GFR ( Amer) Est GFR (Non-Af Amer) POC Glucose (mg/dL) Random Glucose Hemoglobin A1c Lactic Acid Uric Acid Calcium Phosphorus Magnesium Iron TIBC % Saturation Ferritin Total Bilirubin AST ALT Alkaline Phosphatase Total Creatine Kinase CK-MB (Mass) Troponin I Troponin I, Quant NT-Pro-B Natriuret Pep Total Protein Albumin Globulin Albumin/Globulin Ratio Vitamin B12 Folate TSH 3rd Generation Beta HCG, Quant Cortisol AM Sample Arterial Blood Potassium Urine Color Urine Clarity Urine pH Ur Specific Alicia Urine Protein Urine Glucose (UA) Urine Ketones Urine Blood Urine Nitrate Urine Bilirubin Urine Urobilinogen Ur Leukocyte Esterase Urine WBC (Auto) Urine RBC (Auto) Urine Bacteria Urine Osmolality 495 Ur Random Sodium 15 Ur Random Potassium 24.5 Urine HCG, Qual Urine Opiates Screen Urine Methadone Screen Ur Barbiturates Screen Ur Phencyclidine Scrn Ur Amphetamines Screen U Benzodiazepines Scrn U Oth Cocaine Metabols U Cannabinoids Screen Alcohol, Quantitative Serum Ketones Blood Type O POSITIVE Antibody Screen Negative Assessment & Plan (1) Cardiac arrest Status: Acute (2) Hypokalemia Assessment and Plan: Patient status post cardiac arrest intubated with respiratory failure intoxicated with alcohol Presented with severe hyponatremia hypokalemia hypophosphatemia and borderline hypomagnesemia The etiology of which may be related to excessive fusion for alcohol intoxication and dehydration and malnutrition. My recommendation as discussed with the nurse at the bedside Continue normal saline. Patient receiving potassium phosphate. Patient receiving potassium chloride. And to repeat all the electrolyte after this infusion Patient was given magnesium as well And keep monitoring to repeat all this electrolyte about 2 PM and also to be repeated tomorrow morning Status: Acute (3) Alcohol abuse Status: Acute
--- NOTE | 2017-08-31 10:35 | RAD ---
HISTORY: ETT COMPARISON: Portable chest 08/30/2017. FINDINGS: Endotracheal tube is unchanged in position and a nasogastric tube is now identified placed with tip terminating at the gastric viscus however the side hole is situated at the esophagogastric junction. Advancement of the catheter tendon 15 cm antegrade is advised. LUNGS: No active pulmonary disease. PLEURA: No significant pleural effusion identified, no pneumothorax apparent. CARDIOVASCULAR: Cardiac size remains normal with external pacemaker again evident. OSSEOUS STRUCTURES: No significant abnormalities. VISUALIZED UPPER ABDOMEN: Normal. OTHER FINDINGS: None. IMPRESSION: No acute cardiopulmonary is identified. Nasogastric tube terminates in the stomach with the side hole at the esophagogastric junction advanced of the catheter is recommended. Findings were discussed with Nurse Velasquez in the ICU by phone 08/31/2017 10:30 a.m..
[2017-08-31] MEDS: Thiamine 100 mg/ml Inj IV SCH (10:37)
--- NOTE | 2017-08-31 11:53 | CARD ---
APPROVED REPORT EKG Measurement Heart [id number] <Conclusion> Accelerated Junctional rhythm RSR' or QR pattern in V1 suggests right ventricular conduction delay non specific st t changes. Prolonged QT Abnormal ECG
[2017-08-31] MEDS ORDERED: Sodium Phosphate 15 MMOLE in Sodium Chloride 0.9% 250 ML IVPB ONE (11:56)
[2017-08-31 13:04] LABS: CHLORIDE 94 mmol/L (98-107); POTASSIUM 3.7 mmol/L (3.6-5.2); SODIUM 127 mmol/L (132-148)
[2017-08-31 13:07] LABS: BLOOD UREA NITROGEN 8 mg/dL (7-17); CARBON DIOXIDE 25 mmol/L (22-30); GFR AFRICAN-AMERICAN > 60; GLUCOSE,RANDOM 79 mg/dL (65-105); PHOSPHOROUS 1.8 mg/dL (2.5-4.5)
[2017-08-31 13:08] LABS: MAGNESIUM 1.8 mg/dL (1.6-2.3)
[2017-08-31] MEDS ORDERED: Fosphenytoin 1,000 MG in Sodium Chloride 0.9% 50 ML IV ONE (13:45)
[2017-08-31] MEDS ORDERED: Fosphenytoin 100 MG in Dextrose 5% In Water 50 ML IV SCH (14:00)
[2017-08-31] MEDS: Propofol 10 mg/ml 1,000 MG/100 ML VIAL IV PRN (14:13)
--- NOTE | 2017-08-31 15:30 | CP.CCUPN ---
CCU Subjective - Physician Review Subjective (Free Text): Patient was seen and examined at bedside. Patient is currently intubated. Unable to evaluate ROS due to patient's current clinical status CCU Objective - Vital Signs / Intake & Output Vital Signs (Last 4 hours): Vital Signs Temp Pulse Resp BP 08/31/17 15:00 92.5 F L 87 19 79/55 L 08/31/17 14:00 92.4 F L 88 20 88/53 L 08/31/17 13:00 92.5 F L 100 H 22 92/53 L 08/31/17 12:00 93.2 F L 94 H 22 83/60 L Intake and Output (Last 8hrs): Intake & Output 08/31/17 08/31/17 08/31/17 06:59 14:59 22:59 Intake Total 1075 1654.4 116.2 Output Total 265 130 15 Balance 810 1524.4 101.2 Weight 140 lb Intake: Intake, IV Amount 1075 1654.4 116.2 LEFT IO 477.5 62.5 LT IO DISTAL 850 50 Right Wrist 1075 326.9 3.7 Output: Urine 265 130 15 Urethral (Andino) 265 130 15 - Physical Exam Extroacular Muscles: Negative for: EOMI Respiratory/Chest: Positive for: Good Air Exchange, Other (intubated ) Cardiovascular: Positive for: Regular Rate and Rhythm, Normal S1, S2 Abdomen: Positive for: Normal Bowel Sounds. Negative for: Distention Upper Extremity: Negative for: Edema Lower Extremity: Negative for: Edema Neurological: Negative for: GCS=15, Speech Normal Skin: Positive for: Normal Color - Medications Active Medications: Active Medications Generic Name Dose Route Start Last Admin Trade Name Freq PRN Reason Stop Dose Admin Artificial Tears 1 gm 08/31/17 12:00 Lacri-Lube OS Q6H PRN Sedation Fosphenytoin Sodium 100 mg 08/31/17 22:00 Cerebyx IV Q8H EUSEBIO Heparin Sodium (Porcine) 5,000 units 08/30/17 22:00 08/31/17 12:36 Heparin SC 5,000 units Q12 EUSEBIO Administration Sodium Chloride 1,000 mls @ 150 mls/hr 08/30/17 20:45 08/31/17 10:25 Sodium Chloride 0.9% IV Not Given .Q6H40M EUSEBIO Levetiracetam 500 mg/ Sodium 105 mls @ 420 mls/hr 08/31/17 04:30 08/31/17 04: 28 Chloride IVPB 420 mls/hr Q12H EUSEBIO Administration Midazolam HCl 100 mg/ Sodium 100 mls @ 5 mls/hr 08/31/17 08:29 08/31/17 09:07 Chloride IV 5 mg/hr .Q20H EUSEBIO 5 mls/hr Protocol Administration 5 MG/HR Propofol 1,000 mg in 100 mls @ 0.381 mls/hr 08/31/17 11:11 08/31/17 14:13 Diprivan IV 2 mcg/kg/min .Q24H PRN 0.762 mls/hr TITRATE PER MD ORDER Administration Protocol 1 MCG/KG/MIN Sodium Phosphate 15 mmole/ 255 mls @ 50 mls/hr 08/31/17 11:56 08/31/17 13:24 Sodium Chloride IVPB 08/31/17 17:01 50 mls/hr .Q5H6M ONE Administration Midazolam HCl 1 mg 08/31/17 04:16 08/31/17 07:00 Versed Inj IVP 1 mg Q2H PRN Administration Agitation Pantoprazole Sodium 40 mg 08/31/17 10:00 08/31/17 10:24 Protonix Inj IVP 40 mg DAILY EUSEBIO Administration Pneumococcal Polyvalent Vaccine 0.5 ml 09/03/17 11:49 Pneumovax 23 Vaccine IM 09/03/17 11:50 .ONCE ONE Thiamine HCl 100 mg 08/30/17 22:15 08/31/17 10:37 Vitamin B1 Inj IV Not Given DAILY [facility] - Patient Studies Lab Studies: Lab Studies 08/31/17 08/31/17 08/31/17 Range/Units 12:35 12:35 12:35 WBC (4.8-10.8) K/uL RBC (3.80-5.20) Mil/uL Hgb (11.0-16.0) g/dL Hct (34.0-47.0) % MCV (81.0-99.0) fL MCH (27.0-31.0) pg MCHC (33.0-37.0) g/dL RDW (11.5-14.5) % Plt Count (130-400) K/uL MPV (7.2-11.7) fL Neut % (Auto) (50.0-75.0) % Lymph % (Auto) (20.0-40.0) % [place] % (Auto) (0.0-10.0) % Eos % (Auto) (0.0-4.0) % Baso % (Auto) (0.0-2.0) % Neut # (1.8-7.0) K/uL Lymph # (1.0-4.3) K/uL [place] # (0.0-0.8) K/uL Eos # (0.0-0.7) K/uL Baso # (0.0-0.2) K/uL Neutrophils % (Manual) (50-75) % Lymphocytes % (Manual) (20-40) % Monocytes % (Manual) (0-10) % Eosinophils % (Manual) (0-4) % Platelet Estimate (NORMAL) Polychromasia Hypochromasia (manual) Anisocytosis (manual) Target Cells PT (9.7-12.2) SECONDS INR APTT (21-34) SECONDS Puncture Site pCO2 (35-45) mm/Hg pO2 (80-100) mm/Hg HCO3 (21-28) mmol/L ABG pH (7.35-7.45) ABG Total CO2 (22-28) mmol/L ABG O2 Saturation (95-98) % ABG Base Excess (-2.0-3.0) mmol/L ABG Hemoglobin (11.7-17.4) g/dL ABG Carboxyhemoglobin (0.5-1.5) % POC ABG HHb (Measured) (0.0-5.0) % ABG Methemoglobin (0.0-3.0) % Stephen Test ABG Potassium (3.6-5.2) mmol/L A-a O2 Difference mm/Hg Respiratory Index Hgb O2 Saturation (95.0-98.0) % Glucose (65-105) mg/dl Lactate (0.7-2.1) mmol/L Vent Mode Mechanical Rate FiO2 % Tidal Volume PEEP Crit Value Called To Crit Value Called By Crit Value Read Back Blood Gas Notified Time Sodium (132-148) mmol/L Potassium (3.6-5.2) mmol/L Chloride (98-107) mmol/L Carbon Dioxide (22-30) mmol/L Anion Gap (10-20) BUN (7-17) mg/dL Creatinine (0.7-1.2) mg/dL Est GFR ( Amer) Est GFR (Non-Af Amer) POC Glucose (mg/dL) (65-110) mg/dL Random Glucose (65-105) mg/dL Hemoglobin A1c (4.2-6.5) % Serum Osmolality 270 L (272-300) mosm/kg Lactic Acid (0.7-2.1) mmol/L Uric Acid (2.2-7.5) mg/dL Calcium (8.6-10.4) mg/dl Phosphorus (2.5-4.5) mg/dL Magnesium (1.6-2.3) mg/dL Iron (37-170) ug/dL TIBC (250-450) ug/dL % Saturation (20-55) Ferritin ng/mL Total Bilirubin (0.2-1.3) mg/dL AST (14-36) U/L ALT (9-52) U/L Alkaline Phosphatase (38-126) U/L Total Creatine Kinase (30-135) U/L CK-MB (Mass) (0.0-3.38) ng/mL Troponin I (0.00-0.120) ng/mL Troponin I, Quant (0.00-0.120) ng/mL NT-Pro-B Natriuret Pep (0-450) pg/mL Total Protein (6.3-8.3) g/dL Albumin (3.5-5.0) g/dL Globulin (2.2-3.9) gm/dL Albumin/Globulin Ratio (1.0-2.1) Amylase 160 H (30-110) U/L Lipase 217 (23-300) U/L Alpha Fetoprotein 3.7 (0.0-7.5) ng/mL CA 19-9 Antigen 54.0 H (0-37) U/mL CA 125 Antigen 157 H (0-35) U/mL Vitamin B12 (239-931) pg/mL Folate ng/mL TSH 3rd Generation (0.46-4.68) mIU/L Beta HCG, Quant mIU/ML Cortisol AM Sample (4.46-22.7) ug/dL Arterial Blood Potassium (3.6-5.2) mmol/L Urine Color (YELLOW) Urine Clarity (Clear) Urine pH (5.0-8.0) Ur Specific [place] (1.003-1.030) Urine Protein (NEGATIVE) mg/dL Urine Glucose (UA) (Normal) mg/dL Urine Ketones (NEGATIVE) mg/dL Urine Blood (NEGATIVE) Urine Nitrate (NEGATIVE) Urine Bilirubin (NEGATIVE) Urine Urobilinogen (0.2-1.0) mg/dL Ur Leukocyte Esterase (Negative) Tyrell/uL Urine WBC (Auto) (0-5) /hpf Urine RBC (Auto) (0-3) /hpf Urine Bacteria (<OCC) Urine Osmolality (300-1000) mosm/kg Ur Random Sodium mmol/L Ur Random Potassium mmol/L Urine HCG, Qual (NEGATIVE) Salicylates mg/dL 1 Urine Opiates Screen (NEGATIVE) Urine Methadone Screen (NEGATIVE) Acetaminophen (10.0-30.0) ug/mL Ur Barbiturates Screen (NEGATIVE) Ur Phencyclidine Scrn (NEGATIVE) Ur Amphetamines Screen (NEGATIVE) U Benzodiazepines Scrn (NEGATIVE) U Oth Cocaine Metabols (NEGATIVE) U Cannabinoids Screen (NEGATIVE) Alcohol, Quantitative (0-10) mg/dl Serum Ketones (NEGATIVE) Blood Type Antibody Screen 08/31/17 08/31/17 08/31/17 Range/Units 12:35 12:35 11:49 WBC (4.8-10.8) K/uL RBC (3.80-5.20) Mil/uL Hgb (11.0-16.0) g/dL Hct (34.0-47.0) % MCV (81.0-99.0) fL MCH (27.0-31.0) pg MCHC (33.0-37.0) g/dL RDW (11.5-14.5) % Plt Count (130-400) K/uL MPV (7.2-11.7) fL Neut % (Auto) (50.0-75.0) % Lymph % (Auto) (20.0-40.0) % [place] % (Auto) (0.0-10.0) % Eos % (Auto) (0.0-4.0) % Baso % (Auto) (0.0-2.0) % Neut # (1.8-7.0) K/uL Lymph # (1.0-4.3) K/uL [place] # (0.0-0.8) K/uL Eos # (0.0-0.7) K/uL Baso # (0.0-0.2) K/uL Neutrophils % (Manual) (50-75) % Lymphocytes % (Manual) (20-40) % Monocytes % (Manual) (0-10) % Eosinophils % (Manual) (0-4) % Platelet Estimate (NORMAL) Polychromasia Hypochromasia (manual) Anisocytosis (manual) Target Cells PT (9.7-12.2) SECONDS INR APTT (21-34) SECONDS Puncture Site pCO2 (35-45) mm/Hg pO2 (80-100) mm/Hg HCO3 (21-28) mmol/L ABG pH (7.35-7.45) ABG Total CO2 (22-28) mmol/L ABG O2 Saturation (95-98) % ABG Base Excess (-2.0-3.0) mmol/L ABG Hemoglobin (11.7-17.4) g/dL ABG Carboxyhemoglobin (0.5-1.5) % POC ABG HHb (Measured) (0.0-5.0) % ABG Methemoglobin (0.0-3.0) % Stephen Test ABG Potassium (3.6-5.2) mmol/L A-a O2 Difference mm/Hg Respiratory Index Hgb O2 Saturation (95.0-98.0) % Glucose (65-105) mg/dl Lactate (0.7-2.1) mmol/L Vent Mode Mechanical Rate FiO2 % Tidal Volume PEEP Crit Value Called To Crit Value Called By Crit Value Read Back Blood Gas Notified Time Sodium 127 L (132-148) mmol/L Potassium 3.7 (3.6-5.2) mmol/L Chloride 94 L (98-107) mmol/L Carbon Dioxide 25 (22-30) mmol/L Anion Gap 11 (10-20) BUN 8 (7-17) mg/dL Creatinine 0.3 L (0.7-1.2) mg/dL Est GFR ( Amer) > 60 Est GFR (Non-Af Amer) > 60 POC Glucose (mg/dL) 139 H (65-110) mg/dL Random Glucose 79 (65-105) mg/dL Hemoglobin A1c (4.2-6.5) % Serum Osmolality (272-300) mosm/kg Lactic Acid (0.7-2.1) mmol/L Uric Acid (2.2-7.5) mg/dL Calcium 8.0 L (8.6-10.4) mg/dl Phosphorus 1.8 L (2.5-4.5) mg/dL Magnesium 1.8 (1.6-2.3) mg/dL Iron (37-170) ug/dL TIBC (250-450) ug/dL % Saturation (20-55) Ferritin ng/mL Total Bilirubin (0.2-1.3) mg/dL AST (14-36) U/L ALT (9-52) U/L Alkaline Phosphatase (38-126) U/L Total Creatine Kinase (30-135) U/L CK-MB (Mass) (0.0-3.38) ng/mL Troponin I 0.0470 (0.00-0.120) ng/mL Troponin I, Quant (0.00-0.120) ng/mL NT-Pro-B Natriuret Pep (0-450) pg/mL Total Protein (6.3-8.3) g/dL Albumin (3.5-5.0) g/dL Globulin (2.2-3.9) gm/dL Albumin/Globulin Ratio (1.0-2.1) Amylase (30-110) U/L Lipase (23-300) U/L Alpha Fetoprotein (0.0-7.5) ng/mL CA 19-9 Antigen (0-37) U/mL CA 125 Antigen (0-35) U/mL Vitamin B12 (239-931) pg/mL Folate ng/mL TSH 3rd Generation (0.46-4.68) mIU/L Beta HCG, Quant mIU/ML Cortisol AM Sample (4.46-22.7) ug/dL Arterial Blood Potassium (3.6-5.2) mmol/L Urine Color (YELLOW) Urine Clarity (Clear) Urine pH (5.0-8.0) Ur Specific [place] (1.003-1.030) Urine Protein (NEGATIVE) mg/dL Urine Glucose (UA) (Normal) mg/dL Urine Ketones (NEGATIVE) mg/dL Urine Blood (NEGATIVE) Urine Nitrate (NEGATIVE) Urine Bilirubin (NEGATIVE) Urine Urobilinogen (0.2-1.0) mg/dL Ur Leukocyte Esterase (Negative) [place]/uL Urine WBC (Auto) (0-5) /hpf Urine RBC (Auto) (0-3) /hpf Urine Bacteria (<OCC) Urine Osmolality (300-1000) mosm/kg Ur Random Sodium mmol/L Ur Random Potassium mmol/L Urine HCG, Qual (NEGATIVE) Salicylates < 1.0 mg/dL 1 Urine Opiates Screen (NEGATIVE) Urine Methadone Screen (NEGATIVE) Acetaminophen < 10.0 L (10.0-30.0) ug/mL Ur Barbiturates Screen (NEGATIVE) Ur Phencyclidine Scrn (NEGATIVE) Ur Amphetamines Screen (NEGATIVE) U Benzodiazepines Scrn (NEGATIVE) U Oth Cocaine Metabols (NEGATIVE) U Cannabinoids Screen (NEGATIVE) Alcohol, Quantitative (0-10) mg/dl Serum Ketones (NEGATIVE) Blood Type Antibody Screen 08/31/17 08/31/17 08/31/17 Range/Units 08:59 06:33 06:26 WBC 11.6 H (4.8-10.8) K/uL RBC 2.41 L (3.80-5.20) Mil/uL Hgb 7.7 L (11.0-16.0) g/dL Hct 23.1 L (34.0-47.0) % MCV 96.1 (81.0-99.0) fL MCH 32.1 H (27.0-31.0) pg MCHC 33.4 (33.0-37.0) g/dL RDW 16.6 H (11.5-14.5) % Plt Count 156 (130-400) K/uL MPV 7.8 (7.2-11.7) fL Neut % (Auto) 85.5 H (50.0-75.0) % Lymph % (Auto) 7.1 L (20.0-40.0) % [place] % (Auto) 7.0 (0.0-10.0) % Eos % (Auto) 0.1 (0.0-4.0) % Baso % (Auto) 0.3 (0.0-2.0) % Neut # 9.9 H (1.8-7.0) K/uL Lymph # 0.8 L (1.0-4.3) K/uL [place] # 0.8 (0.0-0.8) K/uL Eos # 0.0 (0.0-0.7) K/uL Baso # 0.0 (0.0-0.2) K/uL Neutrophils % (Manual) 87 H (50-75) % Lymphocytes % (Manual) 9 L (20-40) % Monocytes % (Manual) 3 (0-10) % Eosinophils % (Manual) 1 (0-4) % Platelet Estimate Normal (NORMAL) Polychromasia Slight Hypochromasia (manual) Slight Anisocytosis (manual) Slight Target Cells Slight PT (9.7-12.2) SECONDS INR APTT (21-34) SECONDS Puncture Site pCO2 (35-45) mm/Hg pO2 (80-100) mm/Hg HCO3 (21-28) mmol/L ABG pH (7.35-7.45) ABG Total CO2 (22-28) mmol/L ABG O2 Saturation (95-98) % ABG Base Excess (-2.0-3.0) mmol/L ABG Hemoglobin (11.7-17.4) g/dL ABG Carboxyhemoglobin (0.5-1.5) % POC ABG HHb (Measured) (0.0-5.0) % ABG Methemoglobin (0.0-3.0) % Stephen Test ABG Potassium (3.6-5.2) mmol/L A-a O2 Difference mm/Hg Respiratory Index Hgb O2 Saturation (95.0-98.0) % Glucose (65-105) mg/dl Lactate (0.7-2.1) mmol/L Vent Mode Mechanical Rate FiO2 % Tidal Volume PEEP Crit Value Called To Crit Value Called By Crit Value Read Back Blood Gas Notified Time Sodium (132-148) mmol/L Potassium (3.6-5.2) mmol/L Chloride (98-107) mmol/L Carbon Dioxide (22-30) mmol/L Anion Gap (10-20) BUN (7-17) mg/dL Creatinine (0.7-1.2) mg/dL Est GFR ( Amer) Est GFR (Non-Af Amer) POC Glucose (mg/dL) (65-110) mg/dL Random Glucose (65-105) mg/dL Hemoglobin A1c (4.2-6.5) % Serum Osmolality (272-300) mosm/kg Lactic Acid (0.7-2.1) mmol/L Uric Acid (2.2-7.5) mg/dL Calcium (8.6-10.4) mg/dl Phosphorus (2.5-4.5) mg/dL Magnesium (1.6-2.3) mg/dL Iron (37-170) ug/dL TIBC (250-450) ug/dL % Saturation (20-55) Ferritin ng/mL Total Bilirubin (0.2-1.3) mg/dL AST (14-36) U/L ALT (9-52) U/L Alkaline Phosphatase (38-126) U/L Total Creatine Kinase (30-135) U/L CK-MB (Mass) (0.0-3.38) ng/mL Troponin I (0.00-0.120) ng/mL Troponin I, Quant (0.00-0.120) ng/mL NT-Pro-B Natriuret Pep (0-450) pg/mL Total Protein (6.3-8.3) g/dL Albumin (3.5-5.0) g/dL Globulin (2.2-3.9) gm/dL Albumin/Globulin Ratio (1.0-2.1) Amylase (30-110) U/L Lipase (23-300) U/L Alpha Fetoprotein (0.0-7.5) ng/mL CA 19-9 Antigen (0-37) U/mL CA 125 Antigen (0-35) U/mL Vitamin B12 (239-931) pg/mL Folate ng/mL TSH 3rd Generation (0.46-4.68) mIU/L Beta HCG, Quant mIU/ML Cortisol AM Sample (4.46-22.7) ug/dL Arterial Blood Potassium (3.6-5.2) mmol/L Urine Color (YELLOW) Urine Clarity (Clear) Urine pH (5.0-8.0) Ur Specific [place] (1.003-1.030) Urine Protein (NEGATIVE) mg/dL Urine Glucose (UA) (Normal) mg/dL Urine Ketones (NEGATIVE) mg/dL Urine Blood (NEGATIVE) Urine Nitrate (NEGATIVE) Urine Bilirubin (NEGATIVE) Urine Urobilinogen (0.2-1.0) mg/dL Ur Leukocyte Esterase (Negative) [place]/uL Urine WBC (Auto) (0-5) /hpf Urine RBC (Auto) (0-3) /hpf Urine Bacteria (<OCC) Urine Osmolality 495 (300-1000) mosm/kg Ur Random Sodium 15 mmol/L Ur Random Potassium 24.5 mmol/L Urine HCG, Qual (NEGATIVE) Salicylates mg/dL 1 Urine Opiates Screen (NEGATIVE) Urine Methadone Screen (NEGATIVE) Acetaminophen (10.0-30.0) ug/mL Ur Barbiturates Screen (NEGATIVE) Ur Phencyclidine Scrn (NEGATIVE) Ur Amphetamines Screen (NEGATIVE) U Benzodiazepines Scrn (NEGATIVE) U Oth Cocaine Metabols (NEGATIVE) U Cannabinoids Screen (NEGATIVE) Alcohol, Quantitative (0-10) mg/dl Serum Ketones (NEGATIVE) Blood Type O POSITIVE Antibody Screen Negative 08/31/17 08/31/17 08/31/17 Range/Units 06:26 06:26 06:26 WBC (4.8-10.8) K/uL RBC (3.80-5.20) Mil/uL Hgb (11.0-16.0) g/dL Hct (34.0-47.0) % MCV (81.0-99.0) fL MCH (27.0-31.0) pg MCHC (33.0-37.0) g/dL RDW (11.5-14.5) % Plt Count (130-400) K/uL MPV (7.2-11.7) fL Neut % (Auto) (50.0-75.0) % Lymph % (Auto) (20.0-40.0) % [place] % (Auto) (0.0-10.0) % Eos % (Auto) (0.0-4.0) % Baso % (Auto) (0.0-2.0) % Neut # (1.8-7.0) K/uL Lymph # (1.0-4.3) K/uL [place] # (0.0-0.8) K/uL Eos # (0.0-0.7) K/uL Baso # (0.0-0.2) K/uL Neutrophils % (Manual) (50-75) % Lymphocytes % (Manual) (20-40) % Monocytes % (Manual) (0-10) % Eosinophils % (Manual) (0-4) % Platelet Estimate (NORMAL) Polychromasia Hypochromasia (manual) Anisocytosis (manual) Target Cells PT (9.7-12.2) SECONDS INR APTT (21-34) SECONDS Puncture Site pCO2 (35-45) mm/Hg pO2 (80-100) mm/Hg HCO3 (21-28) mmol/L ABG pH (7.35-7.45) ABG Total CO2 (22-28) mmol/L ABG O2 Saturation (95-98) % ABG Base Excess (-2.0-3.0) mmol/L ABG Hemoglobin (11.7-17.4) g/dL ABG Carboxyhemoglobin (0.5-1.5) % POC ABG HHb (Measured) (0.0-5.0) % ABG Methemoglobin (0.0-3.0) % Stephen Test ABG Potassium (3.6-5.2) mmol/L A-a O2 Difference mm/Hg Respiratory Index Hgb O2 Saturation (95.0-98.0) % Glucose (65-105) mg/dl Lactate (0.7-2.1) mmol/L Vent Mode Mechanical Rate FiO2 % Tidal Volume PEEP Crit Value Called To Crit Value Called By Crit Value Read Back Blood Gas Notified Time Sodium (132-148) mmol/L Potassium (3.6-5.2) mmol/L Chloride (98-107) mmol/L Carbon Dioxide (22-30) mmol/L Anion Gap (10-20) BUN (7-17) mg/dL Creatinine (0.7-1.2) mg/dL Est GFR ( Amer) Est GFR (Non-Af Amer) POC Glucose (mg/dL) (65-110) mg/dL Random Glucose (65-105) mg/dL Hemoglobin A1c 5.9 (4.2-6.5) % Serum Osmolality (272-300) mosm/kg Lactic Acid (0.7-2.1) mmol/L Uric Acid (2.2-7.5) mg/dL Calcium (8.6-10.4) mg/dl Phosphorus (2.5-4.5) mg/dL Magnesium (1.6-2.3) mg/dL Iron (37-170) ug/dL TIBC (250-450) ug/dL % Saturation 78 H (20-55) Ferritin ng/mL Total Bilirubin (0.2-1.3) mg/dL AST (14-36) U/L ALT (9-52) U/L Alkaline Phosphatase (38-126) U/L Total Creatine Kinase (30-135) U/L CK-MB (Mass) (0.0-3.38) ng/mL Troponin I (0.00-0.120) ng/mL Troponin I, Quant (0.00-0.120) ng/mL NT-Pro-B Natriuret Pep (0-450) pg/mL Total Protein (6.3-8.3) g/dL Albumin (3.5-5.0) g/dL Globulin (2.2-3.9) gm/dL Albumin/Globulin Ratio (1.0-2.1) Amylase (30-110) U/L Lipase (23-300) U/L Alpha Fetoprotein (0.0-7.5) ng/mL CA 19-9 Antigen (0-37) U/mL CA 125 Antigen (0-35) U/mL Vitamin B12 (239-931) pg/mL Folate ng/mL TSH 3rd Generation (0.46-4.68) mIU/L Beta HCG, Quant mIU/ML Cortisol AM Sample 38.8 H (4.46-22.7) ug/dL Arterial Blood Potassium (3.6-5.2) mmol/L Urine Color (YELLOW) Urine Clarity (Clear) Urine pH (5.0-8.0) Ur Specific [place] (1.003-1.030) Urine Protein (NEGATIVE) mg/dL Urine Glucose (UA) (Normal) mg/dL Urine Ketones (NEGATIVE) mg/dL Urine Blood (NEGATIVE) Urine Nitrate (NEGATIVE) Urine Bilirubin (NEGATIVE) Urine Urobilinogen (0.2-1.0) mg/dL Ur Leukocyte Esterase (Negative) [place]/uL Urine WBC (Auto) (0-5) /hpf Urine RBC (Auto) (0-3) /hpf Urine Bacteria (<OCC) Urine Osmolality (300-1000) mosm/kg Ur Random Sodium mmol/L Ur Random Potassium mmol/L Urine HCG, Qual (NEGATIVE) Salicylates mg/dL 1 Urine Opiates Screen (NEGATIVE) Urine Methadone Screen (NEGATIVE) Acetaminophen (10.0-30.0) ug/mL Ur Barbiturates Screen (NEGATIVE) Ur Phencyclidine Scrn (NEGATIVE) Ur Amphetamines Screen (NEGATIVE) U Benzodiazepines Scrn (NEGATIVE) U Oth Cocaine Metabols (NEGATIVE) U Cannabinoids Screen (NEGATIVE) Alcohol, Quantitative (0-10) mg/dl Serum Ketones (NEGATIVE) Blood Type Antibody Screen 08/31/17 08/31/17 08/31/17 Range/Units 06:26 05:58 05:00 WBC (4.8-10.8) K/uL RBC (3.80-5.20) Mil/uL Hgb (11.0-16.0) g/dL Hct (34.0-47.0) % MCV (81.0-99.0) fL MCH (27.0-31.0) pg MCHC (33.0-37.0) g/dL RDW (11.5-14.5) % Plt Count (130-400) K/uL MPV (7.2-11.7) fL Neut % (Auto) (50.0-75.0) % Lymph % (Auto) (20.0-40.0) % [place] % (Auto) (0.0-10.0) % Eos % (Auto) (0.0-4.0) % Baso % (Auto) (0.0-2.0) % Neut # (1.8-7.0) K/uL Lymph # (1.0-4.3) K/uL [place] # (0.0-0.8) K/uL Eos # (0.0-0.7) K/uL Baso # (0.0-0.2) K/uL Neutrophils % (Manual) (50-75) % Lymphocytes % (Manual) (20-40) % Monocytes % (Manual) (0-10) % Eosinophils % (Manual) (0-4) % Platelet Estimate (NORMAL) Polychromasia Hypochromasia (manual) Anisocytosis (manual) Target Cells PT (9.7-12.2) SECONDS INR APTT (21-34) SECONDS Puncture Site L rad pCO2 26 L (35-45) mm/Hg pO2 181 H (80-100) mm/Hg HCO3 22.8 (21-28) mmol/L ABG pH 7.50 H (7.35-7.45) ABG Total CO2 21.1 L (22-28) mmol/L ABG O2 Saturation 100.1 H (95-98) % ABG Base Excess -2.8 L (-2.0-3.0) mmol/L ABG Hemoglobin 4.8 L (11.7-17.4) g/dL ABG Carboxyhemoglobin 1.6 H (0.5-1.5) % POC ABG HHb (Measured) -0.1 L (0.0-5.0) % ABG Methemoglobin 1.6 (0.0-3.0) % Stephen Test Pos ABG Potassium (3.6-5.2) mmol/L A-a O2 Difference 72.0 mm/Hg Respiratory Index 0.4 Hgb O2 Saturation 97.0 (95.0-98.0) % Glucose (65-105) mg/dl Lactate (0.7-2.1) mmol/L Vent Mode Prvc Mechanical Rate 14 FiO2 40.0 % Tidal Volume 450 PEEP 5 Crit Value Called To [facility] olvin manager nicu Crit Value Called By Jo meza rt Crit Value Read Back Y Blood Gas Notified Time 538 Sodium 124 L (132-148) mmol/L Potassium 3.0 L (3.6-5.2) mmol/L Chloride 88 L (98-107) mmol/L Carbon Dioxide 24 (22-30) mmol/L Anion Gap 15 (10-20) BUN 10 (7-17) mg/dL Creatinine 0.4 L (0.7-1.2) mg/dL Est GFR ( Amer) > 60 Est GFR (Non-Af Amer) > 60 POC Glucose (mg/dL) 110 (65-110) mg/dL Random Glucose 93 (65-105) mg/dL Hemoglobin A1c (4.2-6.5) % Serum Osmolality (272-300) mosm/kg Lactic Acid (0.7-2.1) mmol/L Uric Acid 8.0 H (2.2-7.5) mg/dL Calcium 7.9 L (8.6-10.4) mg/dl Phosphorus 1.3 L (2.5-4.5) mg/dL Magnesium 1.4 L (1.6-2.3) mg/dL Iron (37-170) ug/dL TIBC (250-450) ug/dL % Saturation (20-55) Ferritin 798.0 ng/mL Total Bilirubin 1.7 H (0.2-1.3) mg/dL AST 65 H (14-36) U/L ALT 32 (9-52) U/L Alkaline Phosphatase 114 (38-126) U/L Total Creatine Kinase (30-135) U/L CK-MB (Mass) (0.0-3.38) ng/mL Troponin I 0.0710 (0.00-0.120) ng/mL Troponin I, Quant (0.00-0.120) ng/mL NT-Pro-B Natriuret Pep (0-450) pg/mL Total Protein 6.4 (6.3-8.3) g/dL Albumin 3.1 L (3.5-5.0) g/dL Globulin 3.4 (2.2-3.9) gm/dL Albumin/Globulin Ratio 0.9 L (1.0-2.1) Amylase (30-110) U/L Lipase (23-300) U/L Alpha Fetoprotein (0.0-7.5) ng/mL CA 19-9 Antigen (0-37) U/mL CA 125 Antigen (0-35) U/mL Vitamin B12 641 (239-931) pg/mL Folate 3.0 ng/mL TSH 3rd Generation 0.40 L (0.46-4.68) mIU/L Beta HCG, Quant mIU/ML Cortisol AM Sample (4.46-22.7) ug/dL Arterial Blood Potassium (3.6-5.2) mmol/L Urine Color (YELLOW) Urine Clarity (Clear) Urine pH (5.0-8.0) Ur Specific [place] (1.003-1.030) Urine Protein (NEGATIVE) mg/dL Urine Glucose (UA) (Normal) mg/dL Urine Ketones (NEGATIVE) mg/dL Urine Blood (NEGATIVE) Urine Nitrate (NEGATIVE) Urine Bilirubin (NEGATIVE) Urine Urobilinogen (0.2-1.0) mg/dL Ur Leukocyte Esterase (Negative) Tyrell/uL Urine WBC (Auto) (0-5) /hpf Urine RBC (Auto) (0-3) /hpf Urine Bacteria (<OCC) Urine Osmolality (300-1000) mosm/kg Ur Random Sodium mmol/L Ur Random Potassium mmol/L Urine HCG, Qual (NEGATIVE) Salicylates mg/dL 1 Urine Opiates Screen (NEGATIVE) Urine Methadone Screen (NEGATIVE) Acetaminophen (10.0-30.0) ug/mL Ur Barbiturates Screen (NEGATIVE) Ur Phencyclidine Scrn (NEGATIVE) Ur Amphetamines Screen (NEGATIVE) U Benzodiazepines Scrn (NEGATIVE) U Oth Cocaine Metabols (NEGATIVE) U Cannabinoids Screen (NEGATIVE) Alcohol, Quantitative (0-10) mg/dl Serum Ketones (NEGATIVE) Blood Type Antibody Screen 08/31/17 08/31/17 08/31/17 Range/Units 01:21 01:21 01:21 WBC (4.8-10.8) K/uL RBC (3.80-5.20) Mil/uL Hgb (11.0-16.0) g/dL Hct (34.0-47.0) % MCV (81.0-99.0) fL MCH (27.0-31.0) pg MCHC (33.0-37.0) g/dL RDW (11.5-14.5) % Plt Count (130-400) K/uL MPV (7.2-11.7) fL Neut % (Auto) (50.0-75.0) % Lymph % (Auto) (20.0-40.0) % [place] % (Auto) (0.0-10.0) % Eos % (Auto) (0.0-4.0) % Baso % (Auto) (0.0-2.0) % Neut # (1.8-7.0) K/uL Lymph # (1.0-4.3) K/uL [place] # (0.0-0.8) K/uL Eos # (0.0-0.7) K/uL Baso # (0.0-0.2) K/uL Neutrophils % (Manual) (50-75) % Lymphocytes % (Manual) (20-40) % Monocytes % (Manual) (0-10) % Eosinophils % (Manual) (0-4) % Platelet Estimate (NORMAL) Polychromasia Hypochromasia (manual) Anisocytosis (manual) Target Cells PT (9.7-12.2) SECONDS INR APTT (21-34) SECONDS Puncture Site pCO2 (35-45) mm/Hg pO2 (80-100) mm/Hg HCO3 (21-28) mmol/L ABG pH (7.35-7.45) ABG Total CO2 (22-28) mmol/L ABG O2 Saturation (95-98) % ABG Base Excess (-2.0-3.0) mmol/L ABG Hemoglobin (11.7-17.4) g/dL ABG Carboxyhemoglobin (0.5-1.5) % POC ABG HHb (Measured) (0.0-5.0) % ABG Methemoglobin (0.0-3.0) % Stephen Test ABG Potassium (3.6-5.2) mmol/L A-a O2 Difference mm/Hg Respiratory Index Hgb O2 Saturation (95.0-98.0) % Glucose (65-105) mg/dl Lactate (0.7-2.1) mmol/L Vent Mode Mechanical Rate FiO2 % Tidal Volume PEEP Crit Value Called To Crit Value Called By Crit Value Read Back Blood Gas Notified Time Sodium 125 L (132-148) mmol/L Potassium 2.9 L (3.6-5.2) mmol/L Chloride 85 L (98-107) mmol/L Carbon Dioxide 22 (22-30) mmol/L Anion Gap 21 H (10-20) BUN 9 (7-17) mg/dL Creatinine 0.4 L (0.7-1.2) mg/dL Est GFR ( Amer) > 60 Est GFR (Non-Af Amer) > 60 POC Glucose (mg/dL) (65-110) mg/dL Random Glucose 153 H (65-105) mg/dL Hemoglobin A1c (4.2-6.5) % Serum Osmolality (272-300) mosm/kg Lactic Acid 5.5 H* (0.7-2.1) mmol/L Uric Acid (2.2-7.5) mg/dL Calcium 7.8 L (8.6-10.4) mg/dl Phosphorus 2.2 L (2.5-4.5) mg/dL Magnesium 1.3 L (1.6-2.3) mg/dL Iron 227 H (37-170) ug/dL TIBC 277 (250-450) ug/dL % Saturation 82 H (20-55) Ferritin ng/mL Total Bilirubin (0.2-1.3) mg/dL AST (14-36) U/L ALT (9-52) U/L Alkaline Phosphatase (38-126) U/L Total Creatine Kinase 78 (30-135) U/L CK-MB (Mass) (0.0-3.38) ng/mL Troponin I 0.0590 (0.00-0.120) ng/mL Troponin I, Quant (0.00-0.120) ng/mL NT-Pro-B Natriuret Pep (0-450) pg/mL Total Protein (6.3-8.3) g/dL Albumin (3.5-5.0) g/dL Globulin (2.2-3.9) gm/dL Albumin/Globulin Ratio (1.0-2.1) Amylase (30-110) U/L Lipase (23-300) U/L Alpha Fetoprotein (0.0-7.5) ng/mL CA 19-9 Antigen (0-37) U/mL CA 125 Antigen (0-35) U/mL Vitamin B12 (239-931) pg/mL Folate ng/mL TSH 3rd Generation (0.46-4.68) mIU/L Beta HCG, Quant mIU/ML Cortisol AM Sample (4.46-22.7) ug/dL Arterial Blood Potassium (3.6-5.2) mmol/L Urine Color (YELLOW) Urine Clarity (Clear) Urine pH (5.0-8.0) Ur Specific [place] (1.003-1.030) Urine Protein (NEGATIVE) mg/dL Urine Glucose (UA) (Normal) mg/dL Urine Ketones (NEGATIVE) mg/dL Urine Blood (NEGATIVE) Urine Nitrate (NEGATIVE) Urine Bilirubin (NEGATIVE) Urine Urobilinogen (0.2-1.0) mg/dL Ur Leukocyte Esterase (Negative) Tyrell/uL Urine WBC (Auto) (0-5) /hpf Urine RBC (Auto) (0-3) /hpf Urine Bacteria (<OCC) Urine Osmolality (300-1000) mosm/kg Ur Random Sodium mmol/L Ur Random Potassium mmol/L Urine HCG, Qual (NEGATIVE) Salicylates mg/dL 1 Urine Opiates Screen (NEGATIVE) Urine Methadone Screen (NEGATIVE) Acetaminophen (10.0-30.0) ug/mL Ur Barbiturates Screen (NEGATIVE) Ur Phencyclidine Scrn (NEGATIVE) Ur Amphetamines Screen (NEGATIVE) U Benzodiazepines Scrn (NEGATIVE) U Oth Cocaine Metabols (NEGATIVE) U Cannabinoids Screen (NEGATIVE) Alcohol, Quantitative (0-10) mg/dl Serum Ketones (NEGATIVE) Blood Type Antibody Screen 08/30/17 08/30/17 08/30/17 Range/Units 22:38 19:54 19:31 WBC (4.8-10.8) K/uL RBC (3.80-5.20) Mil/uL Hgb (11.0-16.0) g/dL Hct (34.0-47.0) % MCV (81.0-99.0) fL MCH (27.0-31.0) pg MCHC (33.0-37.0) g/dL RDW (11.5-14.5) % Plt Count (130-400) K/uL MPV (7.2-11.7) fL Neut % (Auto) (50.0-75.0) % Lymph % (Auto) (20.0-40.0) % [place] % (Auto) (0.0-10.0) % Eos % (Auto) (0.0-4.0) % Baso % (Auto) (0.0-2.0) % Neut # (1.8-7.0) K/uL Lymph # (1.0-4.3) K/uL [place] # (0.0-0.8) K/uL Eos # (0.0-0.7) K/uL Baso # (0.0-0.2) K/uL Neutrophils % (Manual) (50-75) % Lymphocytes % (Manual) (20-40) % Monocytes % (Manual) (0-10) % Eosinophils % (Manual) (0-4) % Platelet Estimate (NORMAL) Polychromasia Hypochromasia (manual) Anisocytosis (manual) Target Cells PT (9.7-12.2) SECONDS INR APTT (21-34) SECONDS Puncture Site Rba pCO2 26 L (35-45) mm/Hg pO2 459 H (80-100) mm/Hg HCO3 20.8 L (21-28) mmol/L ABG pH 7.43 (7.35-7.45) ABG Total CO2 18.1 L (22-28) mmol/L ABG O2 Saturation 100.5 H (95-98) % ABG Base Excess -5.4 L (-2.0-3.0) mmol/L ABG Hemoglobin (11.7-17.4) g/dL ABG Carboxyhemoglobin (0.5-1.5) % POC ABG HHb (Measured) (0.0-5.0) % ABG Methemoglobin (0.0-3.0) % Stephen Test Na ABG Potassium 1.7 L* (3.6-5.2) mmol/L A-a O2 Difference 222.0 mm/Hg Respiratory Index 0.5 Hgb O2 Saturation (95.0-98.0) % Glucose 145 H (65-105) mg/dl Lactate 8.1 H* (0.7-2.1) mmol/L Vent Mode Prvc Mechanical Rate 16 FiO2 100.0 % Tidal Volume 450 PEEP 5 Crit Value Called To Mora tom Crit Value Called By Mian Crit Value Read Back Y Blood Gas Notified Time 1956 Sodium 129.0 L (132-148) mmol/L Potassium (3.6-5.2) mmol/L Chloride 94.0 L (98-107) mmol/L Carbon Dioxide (22-30) mmol/L Anion Gap (10-20) BUN (7-17) mg/dL Creatinine (0.7-1.2) mg/dL Est GFR ( Amer) Est GFR (Non-Af Amer) POC Glucose (mg/dL) 181 H (65-110) mg/dL Random Glucose (65-105) mg/dL Hemoglobin A1c (4.2-6.5) % Serum Osmolality (272-300) mosm/kg Lactic Acid (0.7-2.1) mmol/L Uric Acid (2.2-7.5) mg/dL Calcium (8.6-10.4) mg/dl Phosphorus (2.5-4.5) mg/dL Magnesium (1.6-2.3) mg/dL Iron (37-170) ug/dL TIBC (250-450) ug/dL % Saturation (20-55) Ferritin ng/mL Total Bilirubin (0.2-1.3) mg/dL AST (14-36) U/L ALT (9-52) U/L Alkaline Phosphatase (38-126) U/L Total Creatine Kinase (30-135) U/L CK-MB (Mass) (0.0-3.38) ng/mL Troponin I (0.00-0.120) ng/mL Troponin I, Quant (0.00-0.120) ng/mL NT-Pro-B Natriuret Pep (0-450) pg/mL Total Protein (6.3-8.3) g/dL Albumin (3.5-5.0) g/dL Globulin (2.2-3.9) gm/dL Albumin/Globulin Ratio (1.0-2.1) Amylase (30-110) U/L Lipase (23-300) U/L Alpha Fetoprotein (0.0-7.5) ng/mL CA 19-9 Antigen (0-37) U/mL CA 125 Antigen (0-35) U/mL Vitamin B12 (239-931) pg/mL Folate ng/mL TSH 3rd Generation (0.46-4.68) mIU/L Beta HCG, Quant mIU/ML Cortisol AM Sample (4.46-22.7) ug/dL Arterial Blood Potassium 1.7 L* (3.6-5.2) mmol/L Urine Color (YELLOW) Urine Clarity (Clear) Urine pH (5.0-8.0) Ur Specific [place] (1.003-1.030) Urine Protein (NEGATIVE) mg/dL Urine Glucose (UA) (Normal) mg/dL Urine Ketones (NEGATIVE) mg/dL Urine Blood (NEGATIVE) Urine Nitrate (NEGATIVE) Urine Bilirubin (NEGATIVE) Urine Urobilinogen (0.2-1.0) mg/dL Ur Leukocyte Esterase (Negative) [place]/uL Urine WBC (Auto) (0-5) /hpf Urine RBC (Auto) (0-3) /hpf Urine Bacteria (<OCC) Urine Osmolality (300-1000) mosm/kg Ur Random Sodium mmol/L Ur Random Potassium mmol/L Urine HCG, Qual (NEGATIVE) Salicylates mg/dL 1 Urine Opiates Screen (NEGATIVE) Urine Methadone Screen (NEGATIVE) Acetaminophen (10.0-30.0) ug/mL Ur Barbiturates Screen (NEGATIVE) Ur Phencyclidine Scrn (NEGATIVE) Ur Amphetamines Screen (NEGATIVE) U Benzodiazepines Scrn (NEGATIVE) U Oth Cocaine Metabols (NEGATIVE) U Cannabinoids Screen (NEGATIVE) Alcohol, Quantitative (0-10) mg/dl Serum Ketones (NEGATIVE) Blood Type O POSITIVE Antibody Screen Negative 08/30/17 08/30/17 08/30/17 Range/Units 19:30 19:30 19:30 WBC (4.8-10.8) K/uL RBC (3.80-5.20) Mil/uL Hgb (11.0-16.0) g/dL Hct (34.0-47.0) % MCV (81.0-99.0) fL MCH (27.0-31.0) pg MCHC (33.0-37.0) g/dL RDW (11.5-14.5) % Plt Count (130-400) K/uL MPV (7.2-11.7) fL Neut % (Auto) (50.0-75.0) % Lymph % (Auto) (20.0-40.0) % [place] % (Auto) (0.0-10.0) % Eos % (Auto) (0.0-4.0) % Baso % (Auto) (0.0-2.0) % Neut # (1.8-7.0) K/uL Lymph # (1.0-4.3) K/uL [place] # (0.0-0.8) K/uL Eos # (0.0-0.7) K/uL Baso # (0.0-0.2) K/uL Neutrophils % (Manual) (50-75) % Lymphocytes % (Manual) (20-40) % Monocytes % (Manual) (0-10) % Eosinophils % (Manual) (0-4) % Platelet Estimate (NORMAL) Polychromasia Hypochromasia (manual) Anisocytosis (manual) Target Cells PT (9.7-12.2) SECONDS INR APTT (21-34) SECONDS Puncture Site pCO2 (35-45) mm/Hg pO2 (80-100) mm/Hg HCO3 (21-28) mmol/L ABG pH (7.35-7.45) ABG Total CO2 (22-28) mmol/L ABG O2 Saturation (95-98) % ABG Base Excess (-2.0-3.0) mmol/L ABG Hemoglobin (11.7-17.4) g/dL ABG Carboxyhemoglobin (0.5-1.5) % POC ABG HHb (Measured) (0.0-5.0) % ABG Methemoglobin (0.0-3.0) % Stephen Test ABG Potassium (3.6-5.2) mmol/L A-a O2 Difference mm/Hg Respiratory Index Hgb O2 Saturation (95.0-98.0) % Glucose (65-105) mg/dl Lactate (0.7-2.1) mmol/L Vent Mode Mechanical Rate FiO2 % Tidal Volume PEEP Crit Value Called To Crit Value Called By Crit Value Read Back Blood Gas Notified Time Sodium 121 L (132-148) mmol/L Potassium 2.5 L* (3.6-5.2) mmol/L Chloride 79 L (98-107) mmol/L Carbon Dioxide 15 L (22-30) mmol/L Anion Gap 30 H (10-20) BUN 10 (7-17) mg/dL Creatinine 0.5 L (0.7-1.2) mg/dL Est GFR ( Amer) > 60 Est GFR (Non-Af Amer) > 60 POC Glucose (mg/dL) (65-110) mg/dL Random Glucose 175 H (65-105) mg/dL Hemoglobin A1c (4.2-6.5) % Serum Osmolality (272-300) mosm/kg Lactic Acid (0.7-2.1) mmol/L Uric Acid (2.2-7.5) mg/dL Calcium 8.2 L (8.6-10.4) mg/dl Phosphorus (2.5-4.5) mg/dL Magnesium 1.3 L (1.6-2.3) mg/dL Iron (37-170) ug/dL TIBC (250-450) ug/dL % Saturation (20-55) Ferritin ng/mL Total Bilirubin 1.1 (0.2-1.3) mg/dL AST 72 H (14-36) U/L ALT 28 (9-52) U/L Alkaline Phosphatase 117 (38-126) U/L Total Creatine Kinase 28 L (30-135) U/L CK-MB (Mass) 0.28 (0.0-3.38) ng/mL Troponin I (0.00-0.120) ng/mL Troponin I, Quant < 0.0120 (0.00-0.120) ng/mL NT-Pro-B Natriuret Pep 48.5 (0-450) pg/mL Total Protein 6.5 (6.3-8.3) g/dL Albumin 3.3 L (3.5-5.0) g/dL Globulin 3.2 (2.2-3.9) gm/dL Albumin/Globulin Ratio 1.0 (1.0-2.1) Amylase (30-110) U/L Lipase (23-300) U/L Alpha Fetoprotein (0.0-7.5) ng/mL CA 19-9 Antigen (0-37) U/mL CA 125 Antigen (0-35) U/mL Vitamin B12 (239-931) pg/mL Folate ng/mL TSH 3rd Generation (0.46-4.68) mIU/L Beta HCG, Quant < 2.39 mIU/ML Cortisol AM Sample (4.46-22.7) ug/dL Arterial Blood Potassium (3.6-5.2) mmol/L Urine Color Yellow (YELLOW) Urine Clarity Clear (Clear) Urine pH 6.0 (5.0-8.0) Ur Specific [place] 1.011 (1.003-1.030) Urine Protein Negative (NEGATIVE) mg/dL Urine Glucose (UA) Normal (Normal) mg/dL Urine Ketones Trace (NEGATIVE) mg/dL Urine Blood Negative (NEGATIVE) Urine Nitrate Negative (NEGATIVE) Urine Bilirubin Negative (NEGATIVE) Urine Urobilinogen 4.0 H (0.2-1.0) mg/dL Ur Leukocyte Esterase Neg (Negative) [place]/uL Urine WBC (Auto) 4 (0-5) /hpf Urine RBC (Auto) 1 (0-3) /hpf Urine Bacteria Rare (<OCC) Urine Osmolality (300-1000) mosm/kg Ur Random Sodium mmol/L Ur Random Potassium mmol/L Urine HCG, Qual Negative (NEGATIVE) Salicylates mg/dL 1 Urine Opiates Screen Negative (NEGATIVE) Urine Methadone Screen Negative (NEGATIVE) Acetaminophen (10.0-30.0) ug/mL Ur Barbiturates Screen Negative (NEGATIVE) Ur Phencyclidine Scrn Negative (NEGATIVE) Ur Amphetamines Screen Negative (NEGATIVE) U Benzodiazepines Scrn Positive (NEGATIVE) U Oth Cocaine Metabols Negative (NEGATIVE) U Cannabinoids Screen Positive (NEGATIVE) Alcohol, Quantitative 16 H (0-10) mg/dl Serum Ketones Negative (NEGATIVE) Blood Type Antibody Screen 08/30/17 08/30/17 08/30/17 Range/Units 19:30 19:30 19:01 WBC 14.5 H D (4.8-10.8) K/uL RBC 2.52 L (3.80-5.20) Mil/uL Hgb 8.0 L D (11.0-16.0) g/dL Hct 24.3 L (34.0-47.0) % MCV 96.2 D (81.0-99.0) fL MCH 31.8 H (27.0-31.0) pg MCHC 33.1 (33.0-37.0) g/dL RDW 16.5 H (11.5-14.5) % Plt Count 255 D (130-400) K/uL MPV 8.1 (7.2-11.7) fL Neut % (Auto) 78.3 H (50.0-75.0) % Lymph % (Auto) 16.8 L (20.0-40.0) % [place] % (Auto) 4.0 (0.0-10.0) % Eos % (Auto) 0.5 (0.0-4.0) % Baso % (Auto) 0.4 (0.0-2.0) % Neut # 11.4 H (1.8-7.0) K/uL Lymph # 2.4 (1.0-4.3) K/uL [place] # 0.6 (0.0-0.8) K/uL Eos # 0.1 (0.0-0.7) K/uL Baso # 0.1 (0.0-0.2) K/uL Neutrophils % (Manual) (50-75) % Lymphocytes % (Manual) (20-40) % Monocytes % (Manual) (0-10) % Eosinophils % (Manual) (0-4) % Platelet Estimate (NORMAL) Polychromasia Hypochromasia (manual) Anisocytosis (manual) Target Cells PT 14.4 H (9.7-12.2) SECONDS INR 1.3 APTT 28 (21-34) SECONDS Puncture Site pCO2 (35-45) mm/Hg pO2 (80-100) mm/Hg HCO3 (21-28) mmol/L ABG pH (7.35-7.45) ABG Total CO2 (22-28) mmol/L ABG O2 Saturation (95-98) % ABG Base Excess (-2.0-3.0) mmol/L ABG Hemoglobin (11.7-17.4) g/dL ABG Carboxyhemoglobin (0.5-1.5) % POC ABG HHb (Measured) (0.0-5.0) % ABG Methemoglobin (0.0-3.0) % Stephen Test ABG Potassium (3.6-5.2) mmol/L A-a O2 Difference mm/Hg Respiratory Index Hgb O2 Saturation (95.0-98.0) % Glucose (65-105) mg/dl Lactate (0.7-2.1) mmol/L Vent Mode Mechanical Rate FiO2 % Tidal Volume PEEP Crit Value Called To Crit Value Called By Crit Value Read Back Blood Gas Notified Time Sodium (132-148) mmol/L Potassium (3.6-5.2) mmol/L Chloride (98-107) mmol/L Carbon Dioxide (22-30) mmol/L Anion Gap (10-20) BUN (7-17) mg/dL Creatinine (0.7-1.2) mg/dL Est GFR ( Amer) Est GFR (Non-Af Amer) POC Glucose (mg/dL) 219 H (65-110) mg/dL Random Glucose (65-105) mg/dL Hemoglobin A1c (4.2-6.5) % Serum Osmolality (272-300) mosm/kg Lactic Acid (0.7-2.1) mmol/L Uric Acid (2.2-7.5) mg/dL Calcium (8.6-10.4) mg/dl Phosphorus (2.5-4.5) mg/dL Magnesium (1.6-2.3) mg/dL Iron (37-170) ug/dL TIBC (250-450) ug/dL % Saturation (20-55) Ferritin ng/mL Total Bilirubin (0.2-1.3) mg/dL AST (14-36) U/L ALT (9-52) U/L Alkaline Phosphatase (38-126) U/L Total Creatine Kinase (30-135) U/L CK-MB (Mass) (0.0-3.38) ng/mL Troponin I (0.00-0.120) ng/mL Troponin I, Quant (0.00-0.120) ng/mL NT-Pro-B Natriuret Pep (0-450) pg/mL Total Protein (6.3-8.3) g/dL Albumin (3.5-5.0) g/dL Globulin (2.2-3.9) gm/dL Albumin/Globulin Ratio (1.0-2.1) Amylase (30-110) U/L Lipase (23-300) U/L Alpha Fetoprotein (0.0-7.5) ng/mL CA 19-9 Antigen (0-37) U/mL CA 125 Antigen (0-35) U/mL Vitamin B12 (239-931) pg/mL Folate ng/mL TSH 3rd Generation (0.46-4.68) mIU/L Beta HCG, Quant mIU/ML Cortisol AM Sample (4.46-22.7) ug/dL Arterial Blood Potassium (3.6-5.2) mmol/L Urine Color (YELLOW) Urine Clarity (Clear) Urine pH (5.0-8.0) Ur Specific [place] (1.003-1.030) Urine Protein (NEGATIVE) mg/dL Urine Glucose (UA) (Normal) mg/dL Urine Ketones (NEGATIVE) mg/dL Urine Blood (NEGATIVE) Urine Nitrate (NEGATIVE) Urine Bilirubin (NEGATIVE) Urine Urobilinogen (0.2-1.0) mg/dL Ur Leukocyte Esterase (Negative) [place]/uL Urine WBC (Auto) (0-5) /hpf Urine RBC (Auto) (0-3) /hpf Urine Bacteria (<OCC) Urine Osmolality (300-1000) mosm/kg Ur Random Sodium mmol/L Ur Random Potassium mmol/L Urine HCG, Qual (NEGATIVE) Salicylates mg/dL 1 Urine Opiates Screen (NEGATIVE) Urine Methadone Screen (NEGATIVE) Acetaminophen (10.0-30.0) ug/mL Ur Barbiturates Screen (NEGATIVE) Ur Phencyclidine Scrn (NEGATIVE) Ur Amphetamines Screen (NEGATIVE) U Benzodiazepines Scrn (NEGATIVE) U Oth Cocaine Metabols (NEGATIVE) U Cannabinoids Screen (NEGATIVE) Alcohol, Quantitative (0-10) mg/dl Serum Ketones (NEGATIVE) Blood Type Antibody Screen Laboratory Results - last 24 hr 08/30/17 08/30/17 08/30/17 19:01 19:30 19:30 WBC 14.5 H D RBC 2.52 L Hgb 8.0 L D Hct 24.3 L MCV 96.2 D MCH 31.8 H MCHC 33.1 RDW 16.5 H Plt Count 255 D MPV 8.1 Neut % (Auto) 78.3 H Lymph % (Auto) 16.8 L [place] % (Auto) 4.0 Eos % (Auto) 0.5 Baso % (Auto) 0.4 Neut # 11.4 H Lymph # 2.4 [place] # 0.6 Eos # 0.1 Baso # 0.1 Neutrophils % (Manual) Lymphocytes % (Manual) Monocytes % (Manual) Eosinophils % (Manual) Platelet Estimate Polychromasia Hypochromasia (manual) Anisocytosis (manual) Target Cells PT 14.4 H INR 1.3 APTT 28 Puncture Site pCO2 pO2 HCO3 ABG pH ABG Total CO2 ABG O2 Saturation ABG Base Excess ABG Hemoglobin ABG Carboxyhemoglobin POC ABG HHb (Measured) ABG Methemoglobin Stephen Test ABG Potassium A-a O2 Difference Respiratory Index Hgb O2 Saturation Glucose Lactate Vent Mode Mechanical Rate FiO2 Tidal Volume PEEP Crit Value Called To Crit Value Called By Crit Value Read Back Blood Gas Notified Time Sodium Potassium Chloride Carbon Dioxide Anion Gap BUN Creatinine Est GFR ( Amer) Est GFR (Non-Af Amer) POC Glucose (mg/dL) 219 H Random Glucose Hemoglobin A1c Serum Osmolality Lactic Acid Uric Acid Calcium Phosphorus Magnesium Iron TIBC % Saturation Ferritin Total Bilirubin AST ALT Alkaline Phosphatase Total Creatine Kinase CK-MB (Mass) Troponin I Troponin I, Quant NT-Pro-B Natriuret Pep Total Protein Albumin Globulin Albumin/Globulin Ratio Amylase Lipase Alpha Fetoprotein CA 19-9 Antigen CA 125 Antigen Vitamin B12 Folate TSH 3rd Generation Beta HCG, Quant Cortisol AM Sample Arterial Blood Potassium Urine Color Urine Clarity Urine pH Ur Specific [place] Urine Protein Urine Glucose (UA) Urine Ketones Urine Blood Urine Nitrate Urine Bilirubin Urine Urobilinogen Ur Leukocyte Esterase Urine WBC (Auto) Urine RBC (Auto) Urine Bacteria Urine Osmolality Ur Random Sodium Ur Random Potassium Urine HCG, Qual Salicylates Urine Opiates Screen Urine Methadone Screen Acetaminophen Ur Barbiturates Screen Ur Phencyclidine Scrn Ur Amphetamines Screen U Benzodiazepines Scrn U Oth Cocaine Metabols U Cannabinoids Screen Alcohol, Quantitative Serum Ketones Blood Type Antibody Screen 08/30/17 08/30/17 08/30/17 19:30 19:30 19:30 WBC RBC Hgb Hct MCV MCH MCHC RDW Plt Count MPV Neut % (Auto) Lymph % (Auto) [place] % (Auto) Eos % (Auto) Baso % (Auto) Neut # Lymph # [place] # Eos # Baso # Neutrophils % (Manual) Lymphocytes % (Manual) Monocytes % (Manual) Eosinophils % (Manual) Platelet Estimate Polychromasia Hypochromasia (manual) Anisocytosis (manual) Target Cells PT INR APTT Puncture Site pCO2 pO2 HCO3 ABG pH ABG Total CO2 ABG O2 Saturation ABG Base Excess ABG Hemoglobin ABG Carboxyhemoglobin POC ABG HHb (Measured) ABG Methemoglobin Stephen Test ABG Potassium A-a O2 Difference Respiratory Index Hgb O2 Saturation Glucose Lactate Vent Mode Mechanical Rate FiO2 Tidal Volume PEEP Crit Value Called To Crit Value Called By Crit Value Read Back Blood Gas Notified Time Sodium 121 L Potassium 2.5 L* Chloride 79 L Carbon Dioxide 15 L Anion Gap 30 H BUN 10 Creatinine 0.5 L Est GFR ( Amer) > 60 Est GFR (Non-Af Amer) > 60 POC Glucose (mg/dL) Random Glucose 175 H Hemoglobin A1c Serum Osmolality Lactic Acid Uric Acid Calcium 8.2 L Phosphorus Magnesium 1.3 L Iron TIBC % Saturation Ferritin Total Bilirubin 1.1 AST 72 H ALT 28 Alkaline Phosphatase 117 Total Creatine Kinase 28 L CK-MB (Mass) 0.28 Troponin I Troponin I, Quant < 0.0120 NT-Pro-B Natriuret Pep 48.5 Total Protein 6.5 Albumin 3.3 L Globulin 3.2 Albumin/Globulin Ratio 1.0 Amylase Lipase Alpha Fetoprotein CA 19-9 Antigen CA 125 Antigen Vitamin B12 Folate TSH 3rd Generation Beta HCG, Quant < 2.39 Cortisol AM Sample Arterial Blood Potassium Urine Color Yellow Urine Clarity Clear Urine pH 6.0 Ur Specific [place] 1.011 Urine Protein Negative Urine Glucose (UA) Normal Urine Ketones Trace Urine Blood Negative Urine Nitrate Negative Urine Bilirubin Negative Urine Urobilinogen 4.0 H Ur Leukocyte Esterase Neg Urine WBC (Auto) 4 Urine RBC (Auto) 1 Urine Bacteria Rare Urine Osmolality Ur Random Sodium Ur Random Potassium Urine HCG, Qual Negative Salicylates Urine Opiates Screen Negative Urine Methadone Screen Negative Acetaminophen Ur Barbiturates Screen Negative Ur Phencyclidine Scrn Negative Ur Amphetamines Screen Negative U Benzodiazepines Scrn Positive U Oth Cocaine Metabols Negative U Cannabinoids Screen Positive Alcohol, Quantitative 16 H Serum Ketones Negative Blood Type Antibody Screen 08/30/17 08/30/17 08/30/17 19:31 19:54 22:38 WBC RBC Hgb Hct MCV MCH MCHC RDW Plt Count MPV Neut % (Auto) Lymph % (Auto) [place] % (Auto) Eos % (Auto) Baso % (Auto) Neut # Lymph # [place] # Eos # Baso # Neutrophils % (Manual) Lymphocytes % (Manual) Monocytes % (Manual) Eosinophils % (Manual) Platelet Estimate Polychromasia Hypochromasia (manual) Anisocytosis (manual) Target Cells PT INR APTT Puncture Site Rba pCO2 26 L pO2 459 H HCO3 20.8 L ABG pH 7.43 ABG Total CO2 18.1 L ABG O2 Saturation 100.5 H ABG Base Excess -5.4 L ABG Hemoglobin ABG Carboxyhemoglobin POC ABG HHb (Measured) ABG Methemoglobin Stephen Test Na ABG Potassium 1.7 L* A-a O2 Difference 222.0 Respiratory Index 0.5 Hgb O2 Saturation Glucose 145 H Lactate 8.1 H* Vent Mode Prvc Mechanical Rate 16 FiO2 100.0 Tidal Volume 450 PEEP 5 Crit Value Called To Mora tom Crit Value Called By Mian Crit Value Read Back Y Blood Gas Notified Time 1956 Sodium 129.0 L Potassium Chloride 94.0 L Carbon Dioxide Anion Gap BUN Creatinine Est GFR ( Amer) Est GFR (Non-Af Amer) POC Glucose (mg/dL) 181 H Random Glucose Hemoglobin A1c Serum Osmolality Lactic Acid Uric Acid Calcium Phosphorus Magnesium Iron TIBC % Saturation Ferritin Total Bilirubin AST ALT Alkaline Phosphatase Total Creatine Kinase CK-MB (Mass) Troponin I Troponin I, Quant NT-Pro-B Natriuret Pep Total Protein Albumin Globulin Albumin/Globulin Ratio Amylase Lipase Alpha Fetoprotein CA 19-9 Antigen CA 125 Antigen Vitamin B12 Folate TSH 3rd Generation Beta HCG, Quant Cortisol AM Sample Arterial Blood Potassium 1.7 L* Urine Color Urine Clarity Urine pH Ur Specific [place] Urine Protein Urine Glucose (UA) Urine Ketones Urine Blood Urine Nitrate Urine Bilirubin Urine Urobilinogen Ur Leukocyte Esterase Urine WBC (Auto) Urine RBC (Auto) Urine Bacteria Urine Osmolality Ur Random Sodium Ur Random Potassium Urine HCG, Qual Salicylates Urine Opiates Screen Urine Methadone Screen Acetaminophen Ur Barbiturates Screen Ur Phencyclidine Scrn Ur Amphetamines Screen U Benzodiazepines Scrn U Oth Cocaine Metabols U Cannabinoids Screen Alcohol, Quantitative Serum Ketones Blood Type O POSITIVE Antibody Screen Negative 08/31/17 08/31/17 08/31/17 01:21 01:21 01:21 WBC RBC Hgb Hct MCV MCH MCHC RDW Plt Count MPV Neut % (Auto) Lymph % (Auto) [place] % (Auto) Eos % (Auto) Baso % (Auto) Neut # Lymph # [place] # Eos # Baso # Neutrophils % (Manual) Lymphocytes % (Manual) Monocytes % (Manual) Eosinophils % (Manual) Platelet Estimate Polychromasia Hypochromasia (manual) Anisocytosis (manual) Target Cells PT INR APTT Puncture Site pCO2 pO2 HCO3 ABG pH ABG Total CO2 ABG O2 Saturation ABG Base Excess ABG Hemoglobin ABG Carboxyhemoglobin POC ABG HHb (Measured) ABG Methemoglobin Stephen Test ABG Potassium A-a O2 Difference Respiratory Index Hgb O2 Saturation Glucose Lactate Vent Mode Mechanical Rate FiO2 Tidal Volume PEEP Crit Value Called To Crit Value Called By Crit Value Read Back Blood Gas Notified Time Sodium 125 L Potassium 2.9 L Chloride 85 L Carbon Dioxide 22 Anion Gap 21 H BUN 9 Creatinine 0.4 L Est GFR ( Amer) > 60 Est GFR (Non-Af Amer) > 60 POC Glucose (mg/dL) Random Glucose 153 H Hemoglobin A1c Serum Osmolality Lactic Acid 5.5 H* Uric Acid Calcium 7.8 L Phosphorus 2.2 L Magnesium 1.3 L Iron 227 H TIBC 277 % Saturation 82 H Ferritin Total Bilirubin AST ALT Alkaline Phosphatase Total Creatine Kinase 78 CK-MB (Mass) Troponin I 0.0590 Troponin I, Quant NT-Pro-B Natriuret Pep Total Protein Albumin Globulin Albumin/Globulin Ratio Amylase Lipase Alpha Fetoprotein CA 19-9 Antigen CA 125 Antigen Vitamin B12 Folate TSH 3rd Generation Beta HCG, Quant Cortisol AM Sample Arterial Blood Potassium Urine Color Urine Clarity Urine pH Ur Specific [place] Urine Protein Urine Glucose (UA) Urine Ketones Urine Blood Urine Nitrate Urine Bilirubin Urine Urobilinogen Ur Leukocyte Esterase Urine WBC (Auto) Urine RBC (Auto) Urine Bacteria Urine Osmolality Ur Random Sodium Ur Random Potassium Urine HCG, Qual Salicylates Urine Opiates Screen Urine Methadone Screen Acetaminophen Ur Barbiturates Screen Ur Phencyclidine Scrn Ur Amphetamines Screen U Benzodiazepines Scrn U Oth Cocaine Metabols U Cannabinoids Screen Alcohol, Quantitative Serum Ketones Blood Type Antibody Screen 08/31/17 08/31/17 08/31/17 05:00 05:58 06:26 WBC RBC Hgb Hct MCV MCH MCHC RDW Plt Count MPV Neut % (Auto) Lymph % (Auto) [place] % (Auto) Eos % (Auto) Baso % (Auto) Neut # Lymph # [place] # Eos # Baso # Neutrophils % (Manual) Lymphocytes % (Manual) Monocytes % (Manual) Eosinophils % (Manual) Platelet Estimate Polychromasia Hypochromasia (manual) Anisocytosis (manual) Target Cells PT INR APTT Puncture Site L rad pCO2 26 L pO2 181 H HCO3 22.8 ABG pH 7.50 H ABG Total CO2 21.1 L ABG O2 Saturation 100.1 H ABG Base Excess -2.8 L ABG Hemoglobin 4.8 L ABG Carboxyhemoglobin 1.6 H POC ABG HHb (Measured) -0.1 L ABG Methemoglobin 1.6 Stephen Test Pos ABG Potassium A-a O2 Difference 72.0 Respiratory Index 0.4 Hgb O2 Saturation 97.0 Glucose Lactate Vent Mode Prvc Mechanical Rate 14 FiO2 40.0 Tidal Volume 450 PEEP 5 Crit Value Called To Summer bah manager nicu Crit Value Called By Jo meza rt Crit Value Read Back Y Blood Gas Notified Time 538 Sodium 124 L Potassium 3.0 L Chloride 88 L Carbon Dioxide 24 Anion Gap 15 BUN 10 Creatinine 0.4 L Est GFR ( Amer) > 60 Est GFR (Non-Af Amer) > 60 POC Glucose (mg/dL) 110 Random Glucose 93 Hemoglobin A1c Serum Osmolality Lactic Acid Uric Acid 8.0 H Calcium 7.9 L Phosphorus 1.3 L Magnesium 1.4 L Iron TIBC % Saturation Ferritin 798.0 Total Bilirubin 1.7 H AST 65 H ALT 32 Alkaline Phosphatase 114 Total Creatine Kinase CK-MB (Mass) Troponin I 0.0710 Troponin I, Quant NT-Pro-B Natriuret Pep Total Protein 6.4 Albumin 3.1 L Globulin 3.4 Albumin/Globulin Ratio 0.9 L Amylase Lipase Alpha Fetoprotein CA 19-9 Antigen CA 125 Antigen Vitamin B12 641 Folate 3.0 TSH 3rd Generation 0.40 L Beta HCG, Quant Cortisol AM Sample Arterial Blood Potassium Urine Color Urine Clarity Urine pH Ur Specific [place] Urine Protein Urine Glucose (UA) Urine Ketones Urine Blood Urine Nitrate Urine Bilirubin Urine Urobilinogen Ur Leukocyte Esterase Urine WBC (Auto) Urine RBC (Auto) Urine Bacteria Urine Osmolality Ur Random Sodium Ur Random Potassium Urine HCG, Qual Salicylates Urine Opiates Screen Urine Methadone Screen Acetaminophen Ur Barbiturates Screen Ur Phencyclidine Scrn Ur Amphetamines Screen U Benzodiazepines Scrn U Oth Cocaine Metabols U Cannabinoids Screen Alcohol, Quantitative Serum Ketones Blood Type Antibody Screen 08/31/17 08/31/17 08/31/17 06:26 06:26 06:26 WBC RBC Hgb Hct MCV MCH MCHC RDW Plt Count MPV Neut % (Auto) Lymph % (Auto) [place] % (Auto) Eos % (Auto) Baso % (Auto) Neut # Lymph # [place] # Eos # Baso # Neutrophils % (Manual) Lymphocytes % (Manual) Monocytes % (Manual) Eosinophils % (Manual) Platelet Estimate Polychromasia Hypochromasia (manual) Anisocytosis (manual) Target Cells PT INR APTT Puncture Site pCO2 pO2 HCO3 ABG pH ABG Total CO2 ABG O2 Saturation ABG Base Excess ABG Hemoglobin ABG Carboxyhemoglobin POC ABG HHb (Measured) ABG Methemoglobin Stephen Test ABG Potassium A-a O2 Difference Respiratory Index Hgb O2 Saturation Glucose Lactate Vent Mode Mechanical Rate FiO2 Tidal Volume PEEP Crit Value Called To Crit Value Called By Crit Value Read Back Blood Gas Notified Time Sodium Potassium Chloride Carbon Dioxide Anion Gap BUN Creatinine Est GFR ( Amer) Est GFR (Non-Af Amer) POC Glucose (mg/dL) Random Glucose Hemoglobin A1c 5.9 Serum Osmolality Lactic Acid Uric Acid Calcium Phosphorus Magnesium Iron TIBC % Saturation 78 H Ferritin Total Bilirubin AST ALT Alkaline Phosphatase Total Creatine Kinase CK-MB (Mass) Troponin I Troponin I, Quant NT-Pro-B Natriuret Pep Total Protein Albumin Globulin Albumin/Globulin Ratio Amylase Lipase Alpha Fetoprotein CA 19-9 Antigen CA 125 Antigen Vitamin B12 Folate TSH 3rd Generation Beta HCG, Quant Cortisol AM Sample 38.8 H Arterial Blood Potassium Urine Color Urine Clarity Urine pH Ur Specific [place] Urine Protein Urine Glucose (UA) Urine Ketones Urine Blood Urine Nitrate Urine Bilirubin Urine Urobilinogen Ur Leukocyte Esterase Urine WBC (Auto) Urine RBC (Auto) Urine Bacteria Urine Osmolality Ur Random Sodium Ur Random Potassium Urine HCG, Qual Salicylates Urine Opiates Screen Urine Methadone Screen Acetaminophen Ur Barbiturates Screen Ur Phencyclidine Scrn Ur Amphetamines Screen U Benzodiazepines Scrn U Oth Cocaine Metabols U Cannabinoids Screen Alcohol, Quantitative Serum Ketones Blood Type Antibody Screen 08/31/17 08/31/17 08/31/17 06:26 06:33 08:59 WBC 11.6 H RBC 2.41 L Hgb 7.7 L Hct 23.1 L MCV 96.1 MCH 32.1 H MCHC 33.4 RDW 16.6 H Plt Count 156 MPV 7.8 Neut % (Auto) 85.5 H Lymph % (Auto) 7.1 L [place] % (Auto) 7.0 Eos % (Auto) 0.1 Baso % (Auto) 0.3 Neut # 9.9 H Lymph # 0.8 L [place] # 0.8 Eos # 0.0 Baso # 0.0 Neutrophils % (Manual) 87 H Lymphocytes % (Manual) 9 L Monocytes % (Manual) 3 Eosinophils % (Manual) 1 Platelet Estimate Normal Polychromasia Slight Hypochromasia (manual) Slight Anisocytosis (manual) Slight Target Cells Slight PT INR APTT Puncture Site pCO2 pO2 HCO3 ABG pH ABG Total CO2 ABG O2 Saturation ABG Base Excess ABG Hemoglobin ABG Carboxyhemoglobin POC ABG HHb (Measured) ABG Methemoglobin Stephen Test ABG Potassium A-a O2 Difference Respiratory Index Hgb O2 Saturation Glucose Lactate Vent Mode Mechanical Rate FiO2 Tidal Volume PEEP Crit Value Called To Crit Value Called By Crit Value Read Back Blood Gas Notified Time Sodium Potassium Chloride Carbon Dioxide Anion Gap BUN Creatinine Est GFR ( Amer) Est GFR (Non-Af Amer) POC Glucose (mg/dL) Random Glucose Hemoglobin A1c Serum Osmolality Lactic Acid Uric Acid Calcium Phosphorus Magnesium Iron TIBC % Saturation Ferritin Total Bilirubin AST ALT Alkaline Phosphatase Total Creatine Kinase CK-MB (Mass) Troponin I Troponin I, Quant NT-Pro-B Natriuret Pep Total Protein Albumin Globulin Albumin/Globulin Ratio Amylase Lipase Alpha Fetoprotein CA 19-9 Antigen CA 125 Antigen Vitamin B12 Folate TSH 3rd Generation Beta HCG, Quant Cortisol AM Sample Arterial Blood Potassium Urine Color Urine Clarity Urine pH Ur Specific [place] Urine Protein Urine Glucose (UA) Urine Ketones Urine Blood Urine Nitrate Urine Bilirubin Urine Urobilinogen Ur Leukocyte Esterase Urine WBC (Auto) Urine RBC (Auto) Urine Bacteria Urine Osmolality 495 Ur Random Sodium 15 Ur Random Potassium 24.5 Urine HCG, Qual Salicylates Urine Opiates Screen Urine Methadone Screen Acetaminophen Ur Barbiturates Screen Ur Phencyclidine Scrn Ur Amphetamines Screen U Benzodiazepines Scrn U Oth Cocaine Metabols U Cannabinoids Screen Alcohol, Quantitative Serum Ketones Blood Type O POSITIVE Antibody Screen Negative 08/31/17 08/31/17 08/31/17 11:49 12:35 12:35 WBC RBC Hgb Hct MCV MCH MCHC RDW Plt Count MPV Neut % (Auto) Lymph % (Auto) [place] % (Auto) Eos % (Auto) Baso % (Auto) Neut # Lymph # [place] # Eos # Baso # Neutrophils % (Manual) Lymphocytes % (Manual) Monocytes % (Manual) Eosinophils % (Manual) Platelet Estimate Polychromasia Hypochromasia (manual) Anisocytosis (manual) Target Cells PT INR APTT Puncture Site pCO2 pO2 HCO3 ABG pH ABG Total CO2 ABG O2 Saturation ABG Base Excess ABG Hemoglobin ABG Carboxyhemoglobin POC ABG HHb (Measured) ABG Methemoglobin Stephen Test ABG Potassium A-a O2 Difference Respiratory Index Hgb O2 Saturation Glucose Lactate Vent Mode Mechanical Rate FiO2 Tidal Volume PEEP Crit Value Called To Crit Value Called By Crit Value Read Back Blood Gas Notified Time Sodium 127 L Potassium 3.7 Chloride 94 L Carbon Dioxide 25 Anion Gap 11 BUN 8 Creatinine 0.3 L Est GFR ( Amer) > 60 Est GFR (Non-Af Amer) > 60 POC Glucose (mg/dL) 139 H Random Glucose 79 Hemoglobin A1c Serum Osmolality Lactic Acid Uric Acid Calcium 8.0 L Phosphorus 1.8 L Magnesium 1.8 Iron TIBC % Saturation Ferritin Total Bilirubin AST ALT Alkaline Phosphatase Total Creatine Kinase CK-MB (Mass) Troponin I 0.0470 Troponin I, Quant NT-Pro-B Natriuret Pep Total Protein Albumin Globulin Albumin/Globulin Ratio Amylase Lipase Alpha Fetoprotein CA 19-9 Antigen CA 125 Antigen Vitamin B12 Folate TSH 3rd Generation Beta HCG, Quant Cortisol AM Sample Arterial Blood Potassium Urine Color Urine Clarity Urine pH Ur Specific [place] Urine Protein Urine Glucose (UA) Urine Ketones Urine Blood Urine Nitrate Urine Bilirubin Urine Urobilinogen Ur Leukocyte Esterase Urine WBC (Auto) Urine RBC (Auto) Urine Bacteria Urine Osmolality Ur Random Sodium Ur Random Potassium Urine HCG, Qual Salicylates < 1.0 Urine Opiates Screen Urine Methadone Screen Acetaminophen < 10.0 L Ur Barbiturates Screen Ur Phencyclidine Scrn Ur Amphetamines Screen U Benzodiazepines Scrn U Oth Cocaine Metabols U Cannabinoids Screen Alcohol, Quantitative Serum Ketones Blood Type Antibody Screen 08/31/17 08/31/17 08/31/17 12:35 12:35 12:35 WBC RBC Hgb Hct MCV MCH MCHC RDW Plt Count MPV Neut % (Auto) Lymph % (Auto) [place] % (Auto) Eos % (Auto) Baso % (Auto) Neut # Lymph # [place] # Eos # Baso # Neutrophils % (Manual) Lymphocytes % (Manual) Monocytes % (Manual) Eosinophils % (Manual) Platelet Estimate Polychromasia Hypochromasia (manual) Anisocytosis (manual) Target Cells PT INR APTT Puncture Site pCO2 pO2 HCO3 ABG pH ABG Total CO2 ABG O2 Saturation ABG Base Excess ABG Hemoglobin ABG Carboxyhemoglobin POC ABG HHb (Measured) ABG Methemoglobin Stephen Test ABG Potassium A-a O2 Difference Respiratory Index Hgb O2 Saturation Glucose Lactate Vent Mode Mechanical Rate FiO2 Tidal Volume PEEP Crit Value Called To Crit Value Called By Crit Value Read Back Blood Gas Notified Time Sodium Potassium Chloride Carbon Dioxide Anion Gap BUN Creatinine Est GFR ( Amer) Est GFR (Non-Af Amer) POC Glucose (mg/dL) Random Glucose Hemoglobin A1c Serum Osmolality 270 L Lactic Acid Uric Acid Calcium Phosphorus Magnesium Iron TIBC % Saturation Ferritin Total Bilirubin AST ALT Alkaline Phosphatase Total Creatine Kinase CK-MB (Mass) Troponin I Troponin I, Quant NT-Pro-B Natriuret Pep Total Protein Albumin Globulin Albumin/Globulin Ratio Amylase 160 H Lipase 217 Alpha Fetoprotein 3.7 CA 19-9 Antigen 54.0 H CA 125 Antigen 157 H Vitamin B12 Folate TSH 3rd Generation Beta HCG, Quant Cortisol AM Sample Arterial Blood Potassium Urine Color Urine Clarity Urine pH Ur Specific [place] Urine Protein Urine Glucose (UA) Urine Ketones Urine Blood Urine Nitrate Urine Bilirubin Urine Urobilinogen Ur Leukocyte Esterase Urine WBC (Auto) Urine RBC (Auto) Urine Bacteria Urine Osmolality Ur Random Sodium Ur Random Potassium Urine HCG, Qual Salicylates Urine Opiates Screen Urine Methadone Screen Acetaminophen Ur Barbiturates Screen Ur Phencyclidine Scrn Ur Amphetamines Screen U Benzodiazepines Scrn U Oth Cocaine Metabols U Cannabinoids Screen Alcohol, Quantitative Serum Ketones Blood Type Antibody Screen EKG/Cardiology Studies: Cardiology / EKG Studies 08/30/17 19:04 EKG [ELECTROCARDIOGRAM] Stat Comment: Mode Of Transportation: BED Reason For Exam: cp 08/30/17 22:00 ELECTROCARDIOGRAM DAILY Comment: Mode Of Transportation: Reason For Exam: cardiac arrest Fingerstick Blood Sugar Results: 139 Review of Systems - Review of Systems Review of Systems: Unable to evaluate ROS due to patient's current clinical status Critical Care Progress Note - Ventilator Checklist Daily Sedation Vacation: Yes Daily Assessment of Readiness to Wean: No Daily Spontaneous Breathing Trial: No PUD Prophalyxis: Yes DVT Prophylaxis: Yes Assessment/Plan - Assessment and Plan (Free Text) Assessment: 36 year old female with past medical history of anemia and alcohol abuse, who was found unconscious by . EMS was called and patient was found to be in Asystole, ACLS protocol was initiated and 2 rounds of epinephrine and then ROSC. Patient was unconscious in the ED. Subsequently, patient was admitted to the ICU and hypothermia protocol was initiated. Today: Plan: Insert TLC catheter Plan: Neuro: Intubated, Acute seizures Neurologist, Dr. Pugh---> help appreciated * Management as per recommendation Medication/Management: * Keppra 500mg IV Q12H * Versed drip * Propofol 1,000mg in 100ml IV 1mcg/kg/min ( Titratable) Cardio: Cardiopulmonary Arrest Management: * Intubated * Hypothermia protocol initiated Pulm: Respiratory distress secondary to cardiac arrest Management: * Intubated GI: No acute issues Renal: Hyponatremia Nephrology, Dr. Ramos---> Help appreciated * Management as per recommendation Psych: Alcohol abuse disorder * Thiamine 100mg IV daily * Psychiatric consult once patient is clinically stable Prophylaxis measures: DVT: SCDs, Heparin 5,000units SC Q12H GI: Protonix 40mg IV daily NS @ 150MLS/HR
--- NOTE | 2017-08-31 16:02 | CP.PCM.CON ---
History of Present Illness - History of Present Illness History of Present Illness: History obtained from patient chart from current and previous admissions. 36 yo woman found unresponsive at home by , EMS found patient in cardiac arrest, resuscitated, currently intubated and sedated. Her Hgb was found to be low with decreased MCV, nl LDH, Ferritin, GI work up in the past showed no obvious bleeding source. The patient as per old records has a history of ETOH abuse, several hospitalizations related to this, with abdominal pain, electrolyte imbalance and anemia. Past Patient History - Infectious Disease Hx of Infectious Diseases: None - Past Medical History & Family History Past Medical History?: Yes - Past Social History Smoking Status: Never Smoked - CARDIAC Hx Cardiac Disorders: No Other/Comment: As per family member : cardiac history of heart going "Fast" - PULMONARY Hx Pneumonia: Yes Other/Comment: smoker - NEUROLOGICAL Hx Neurological Disorder: No - HEENT Hx HEENT Problems: No - RENAL Hx Chronic Kidney Disease: No - ENDOCRINE/METABOLIC Hx Endocrine Disorders: No - HEMATOLOGICAL/ONCOLOGICAL Hx Anemia: Yes - INTEGUMENTARY Hx Dermatological Problems: Yes (HAS MULTIPLE HEALED OPEN LESION TO UPPER ARM, DARKENED SKIN DISCOLOR LLE) Hx Eczema: Yes Other/Comment: H/O OF HAVING HEAD LICE - MUSCULOSKELETAL/RHEUMATOLOGICAL Hx Musculoskeletal Disorders: No Hx Falls: Yes Hx Unsteady Gait: Yes - GASTROINTESTINAL Hx Gastrointestinal Disorders: No (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) HX Swallowing Problems: Yes (SORE THROAT 9-6-14) - GENITOURINARY/GYNECOLOGICAL Hx Genitourinary Disorders: Yes (6 ABORTIONS,3 CHILDREN ,H/O OF C SECTIONS X3) Other/Comment: MENORRHAGIA - PSYCHIATRIC Hx Depression: Yes Hx Substance Use: No - SURGICAL HISTORY Hx Section: Yes - ANESTHESIA Hx Anesthesia: Yes Hx Anesthesia Reactions: No Hx Malignant Hyperthermia: No Meds Allergies/Adverse Reactions: Allergies Allergy/AdvReac Type Severity Reaction Status Date / Time PORK Allergy NAUSEA Verified 01/05/17 11:15 tomato Allergy NAUSEA Verified 01/05/17 11:17 wheat Allergy NAUSEA Verified 01/05/17 11:16 - Medications Medications: Current Medications Artificial Tears (Lacri-Lube) 1 gm OS Q6H PRN PRN Reason: Sedation Heparin Sodium (Porcine) (Heparin) 5,000 units SC Q12 EUSEBIO Last Admin: 08/31/17 12:36 Dose: 5,000 units Sodium Chloride (Sodium Chloride 0.9%) 1,000 mls @ 150 mls/hr IV .Q6H40M EUSEBIO Last Admin: 08/31/17 10:25 Dose: Not Given Levetiracetam 500 mg/ Sodium (Chloride) 105 mls @ 420 mls/hr IVPB Q12H EUSEBIO Last Admin: 08/31/17 04:28 Dose: 420 mls/hr Midazolam HCl 100 mg/ Sodium (Chloride) 100 mls @ 5 mls/hr IV .Q20H EUSEBIO; 5 MG/ HR PRN Reason: Protocol Last Admin: 08/31/17 09:07 Dose: 5 mg/hr, 5 mls/hr Propofol (Diprivan) 1,000 mg in 100 mls @ 0.381 mls/hr IV .Q24H PRN; Protocol; 1 MCG/KG/MIN PRN Reason: TITRATE PER MD ORDER Last Admin: 08/31/17 14:13 Dose: 2 mcg/kg/min, 0.762 mls/hr Sodium Phosphate 15 mmole/ (Sodium Chloride) 255 mls @ 50 mls/hr IVPB .Q5H6M ONE Stop: 08/31/17 17:01 Last Admin: 08/31/17 13:24 Dose: 50 mls/hr Midazolam HCl (Versed Inj) 1 mg IVP Q2H PRN PRN Reason: Agitation Last Admin: 08/31/17 07:00 Dose: 1 mg Pantoprazole Sodium (Protonix Inj) 40 mg IVP DAILY [facility] Last Admin: 08/31/17 10:24 Dose: 40 mg Pneumococcal Polyvalent Vaccine (Pneumovax 23 Vaccine) 0.5 ml IM .ONCE ONE Stop: 09/03/17 11:50 Thiamine HCl (Vitamin B1 Inj) 100 mg IV DAILY [facility] Last Admin: 08/31/17 10:37 Dose: Not Given Results - Vital Signs Recent Vital Signs: Last Vital Signs Temp 92.5 F L 08/31/17 15:00 Pulse 87 08/31/17 15:00 Resp 19 08/31/17 15:00 BP 79/55 L 08/31/17 15:00 Pulse Ox 100 08/31/17 04:00 - Labs Result Diagrams: 08/31/17 06:26 08/31/17 12:35 Labs: Laboratory Results - last 24 hr 08/30/17 08/30/17 08/30/17 19:01 19:30 19:30 WBC 14.5 H D RBC 2.52 L Hgb 8.0 L D Hct 24.3 L MCV 96.2 D MCH 31.8 H MCHC 33.1 RDW 16.5 H Plt Count 255 D MPV 8.1 Neut % (Auto) 78.3 H Lymph % (Auto) 16.8 L [place] % (Auto) 4.0 Eos % (Auto) 0.5 Baso % (Auto) 0.4 Neut # 11.4 H Lymph # 2.4 [place] # 0.6 Eos # 0.1 Baso # 0.1 Neutrophils % (Manual) Lymphocytes % (Manual) Monocytes % (Manual) Eosinophils % (Manual) Platelet Estimate Polychromasia Hypochromasia (manual) Anisocytosis (manual) Target Cells PT 14.4 H INR 1.3 APTT 28 Puncture Site pCO2 pO2 HCO3 ABG pH ABG Total CO2 ABG O2 Saturation ABG Base Excess ABG Hemoglobin ABG Carboxyhemoglobin POC ABG HHb (Measured) ABG Methemoglobin Stephen Test ABG Potassium A-a O2 Difference Respiratory Index Hgb O2 Saturation Glucose Lactate Vent Mode Mechanical Rate FiO2 Tidal Volume PEEP Crit Value Called To Crit Value Called By Crit Value Read Back Blood Gas Notified Time Sodium Potassium Chloride Carbon Dioxide Anion Gap BUN Creatinine Est GFR ( Amer) Est GFR (Non-Af Amer) POC Glucose (mg/dL) 219 H Random Glucose Hemoglobin A1c Serum Osmolality Lactic Acid Uric Acid Calcium Phosphorus Magnesium Iron TIBC % Saturation Ferritin Total Bilirubin AST ALT Alkaline Phosphatase Total Creatine Kinase CK-MB (Mass) Troponin I Troponin I, Quant NT-Pro-B Natriuret Pep Total Protein Albumin Globulin Albumin/Globulin Ratio Amylase Lipase Alpha Fetoprotein CA 19-9 Antigen CA 125 Antigen Vitamin B12 Folate TSH 3rd Generation Beta HCG, Quant Cortisol AM Sample Arterial Blood Potassium Urine Color Urine Clarity Urine pH Ur Specific [place] Urine Protein Urine Glucose (UA) Urine Ketones Urine Blood Urine Nitrate Urine Bilirubin Urine Urobilinogen Ur Leukocyte Esterase Urine WBC (Auto) Urine RBC (Auto) Urine Bacteria Urine Osmolality Ur Random Sodium Ur Random Potassium Urine HCG, Qual Salicylates Urine Opiates Screen Urine Methadone Screen Acetaminophen Ur Barbiturates Screen Ur Phencyclidine Scrn Ur Amphetamines Screen U Benzodiazepines Scrn U Oth Cocaine Metabols U Cannabinoids Screen Alcohol, Quantitative Serum Ketones Blood Type Antibody Screen 08/30/17 08/30/17 08/30/17 19:30 19:30 19:30 WBC RBC Hgb Hct MCV MCH MCHC RDW Plt Count MPV Neut % (Auto) Lymph % (Auto) [place] % (Auto) Eos % (Auto) Baso % (Auto) Neut # Lymph # [place] # Eos # Baso # Neutrophils % (Manual) Lymphocytes % (Manual) Monocytes % (Manual) Eosinophils % (Manual) Platelet Estimate Polychromasia Hypochromasia (manual) Anisocytosis (manual) Target Cells PT INR APTT Puncture Site pCO2 pO2 HCO3 ABG pH ABG Total CO2 ABG O2 Saturation ABG Base Excess ABG Hemoglobin ABG Carboxyhemoglobin POC ABG HHb (Measured) ABG Methemoglobin Stephen Test ABG Potassium A-a O2 Difference Respiratory Index Hgb O2 Saturation Glucose Lactate Vent Mode Mechanical Rate FiO2 Tidal Volume PEEP Crit Value Called To Crit Value Called By Crit Value Read Back Blood Gas Notified Time Sodium 121 L Potassium 2.5 L* Chloride 79 L Carbon Dioxide 15 L Anion Gap 30 H BUN 10 Creatinine 0.5 L Est GFR ( Amer) > 60 Est GFR (Non-Af Amer) > 60 POC Glucose (mg/dL) Random Glucose 175 H Hemoglobin A1c Serum Osmolality Lactic Acid Uric Acid Calcium 8.2 L Phosphorus Magnesium 1.3 L Iron TIBC % Saturation Ferritin Total Bilirubin 1.1 AST 72 H ALT 28 Alkaline Phosphatase 117 Total Creatine Kinase 28 L CK-MB (Mass) 0.28 Troponin I Troponin I, Quant < 0.0120 NT-Pro-B Natriuret Pep 48.5 Total Protein 6.5 Albumin 3.3 L Globulin 3.2 Albumin/Globulin Ratio 1.0 Amylase Lipase Alpha Fetoprotein CA 19-9 Antigen CA 125 Antigen Vitamin B12 Folate TSH 3rd Generation Beta HCG, Quant < 2.39 Cortisol AM Sample Arterial Blood Potassium Urine Color Yellow Urine Clarity Clear Urine pH 6.0 Ur Specific [place] 1.011 Urine Protein Negative Urine Glucose (UA) Normal Urine Ketones Trace Urine Blood Negative Urine Nitrate Negative Urine Bilirubin Negative Urine Urobilinogen 4.0 H Ur Leukocyte Esterase Neg Urine WBC (Auto) 4 Urine RBC (Auto) 1 Urine Bacteria Rare Urine Osmolality Ur Random Sodium Ur Random Potassium Urine HCG, Qual Negative Salicylates Urine Opiates Screen Negative Urine Methadone Screen Negative Acetaminophen Ur Barbiturates Screen Negative Ur Phencyclidine Scrn Negative Ur Amphetamines Screen Negative U Benzodiazepines Scrn Positive U Oth Cocaine Metabols Negative U Cannabinoids Screen Positive Alcohol, Quantitative 16 H Serum Ketones Negative Blood Type Antibody Screen 08/30/17 08/30/17 08/30/17 19:31 19:54 22:38 WBC RBC Hgb Hct MCV MCH MCHC RDW Plt Count MPV Neut % (Auto) Lymph % (Auto) [place] % (Auto) Eos % (Auto) Baso % (Auto) Neut # Lymph # [place] # Eos # Baso # Neutrophils % (Manual) Lymphocytes % (Manual) Monocytes % (Manual) Eosinophils % (Manual) Platelet Estimate Polychromasia Hypochromasia (manual) Anisocytosis (manual) Target Cells PT INR APTT Puncture Site Rba pCO2 26 L pO2 459 H HCO3 20.8 L ABG pH 7.43 ABG Total CO2 18.1 L ABG O2 Saturation 100.5 H ABG Base Excess -5.4 L ABG Hemoglobin ABG Carboxyhemoglobin POC ABG HHb (Measured) ABG Methemoglobin Stephen Test Na ABG Potassium 1.7 L* A-a O2 Difference 222.0 Respiratory Index 0.5 Hgb O2 Saturation Glucose 145 H Lactate 8.1 H* Vent Mode Prvc Mechanical Rate 16 FiO2 100.0 Tidal Volume 450 PEEP 5 Crit Value Called To Mora tom Crit Value Called By Mian Crit Value Read Back Y Blood Gas Notified Time 1956 Sodium 129.0 L Potassium Chloride 94.0 L Carbon Dioxide Anion Gap BUN Creatinine Est GFR ( Amer) Est GFR (Non-Af Amer) POC Glucose (mg/dL) 181 H Random Glucose Hemoglobin A1c Serum Osmolality Lactic Acid Uric Acid Calcium Phosphorus Magnesium Iron TIBC % Saturation Ferritin Total Bilirubin AST ALT Alkaline Phosphatase Total Creatine Kinase CK-MB (Mass) Troponin I Troponin I, Quant NT-Pro-B Natriuret Pep Total Protein Albumin Globulin Albumin/Globulin Ratio Amylase Lipase Alpha Fetoprotein CA 19-9 Antigen CA 125 Antigen Vitamin B12 Folate TSH 3rd Generation Beta HCG, Quant Cortisol AM Sample Arterial Blood Potassium 1.7 L* Urine Color Urine Clarity Urine pH Ur Specific [place] Urine Protein Urine Glucose (UA) Urine Ketones Urine Blood Urine Nitrate Urine Bilirubin Urine Urobilinogen Ur Leukocyte Esterase Urine WBC (Auto) Urine RBC (Auto) Urine Bacteria Urine Osmolality Ur Random Sodium Ur Random Potassium Urine HCG, Qual Salicylates Urine Opiates Screen Urine Methadone Screen Acetaminophen Ur Barbiturates Screen Ur Phencyclidine Scrn Ur Amphetamines Screen U Benzodiazepines Scrn U Oth Cocaine Metabols U Cannabinoids Screen Alcohol, Quantitative Serum Ketones Blood Type O POSITIVE Antibody Screen Negative 08/31/17 08/31/17 08/31/17 01:21 01:21 01:21 WBC RBC Hgb Hct MCV MCH MCHC RDW Plt Count MPV Neut % (Auto) Lymph % (Auto) [place] % (Auto) Eos % (Auto) Baso % (Auto) Neut # Lymph # [place] # Eos # Baso # Neutrophils % (Manual) Lymphocytes % (Manual) Monocytes % (Manual) Eosinophils % (Manual) Platelet Estimate Polychromasia Hypochromasia (manual) Anisocytosis (manual) Target Cells PT INR APTT Puncture Site pCO2 pO2 HCO3 ABG pH ABG Total CO2 ABG O2 Saturation ABG Base Excess ABG Hemoglobin ABG Carboxyhemoglobin POC ABG HHb (Measured) ABG Methemoglobin Stephen Test ABG Potassium A-a O2 Difference Respiratory Index Hgb O2 Saturation Glucose Lactate Vent Mode Mechanical Rate FiO2 Tidal Volume PEEP Crit Value Called To Crit Value Called By Crit Value Read Back Blood Gas Notified Time Sodium 125 L Potassium 2.9 L Chloride 85 L Carbon Dioxide 22 Anion Gap 21 H BUN 9 Creatinine 0.4 L Est GFR ( Amer) > 60 Est GFR (Non-Af Amer) > 60 POC Glucose (mg/dL) Random Glucose 153 H Hemoglobin A1c Serum Osmolality Lactic Acid 5.5 H* Uric Acid Calcium 7.8 L Phosphorus 2.2 L Magnesium 1.3 L Iron 227 H TIBC 277 % Saturation 82 H Ferritin Total Bilirubin AST ALT Alkaline Phosphatase Total Creatine Kinase 78 CK-MB (Mass) Troponin I 0.0590 Troponin I, Quant NT-Pro-B Natriuret Pep Total Protein Albumin Globulin Albumin/Globulin Ratio Amylase Lipase Alpha Fetoprotein CA 19-9 Antigen CA 125 Antigen Vitamin B12 Folate TSH 3rd Generation Beta HCG, Quant Cortisol AM Sample Arterial Blood Potassium Urine Color Urine Clarity Urine pH Ur Specific [place] Urine Protein Urine Glucose (UA) Urine Ketones Urine Blood Urine Nitrate Urine Bilirubin Urine Urobilinogen Ur Leukocyte Esterase Urine WBC (Auto) Urine RBC (Auto) Urine Bacteria Urine Osmolality Ur Random Sodium Ur Random Potassium Urine HCG, Qual Salicylates Urine Opiates Screen Urine Methadone Screen Acetaminophen Ur Barbiturates Screen Ur Phencyclidine Scrn Ur Amphetamines Screen U Benzodiazepines Scrn U Oth Cocaine Metabols U Cannabinoids Screen Alcohol, Quantitative Serum Ketones Blood Type Antibody Screen 08/31/17 08/31/17 08/31/17 05:00 05:58 06:26 WBC RBC Hgb Hct MCV MCH MCHC RDW Plt Count MPV Neut % (Auto) Lymph % (Auto) [place] % (Auto) Eos % (Auto) Baso % (Auto) Neut # Lymph # [place] # Eos # Baso # Neutrophils % (Manual) Lymphocytes % (Manual) Monocytes % (Manual) Eosinophils % (Manual) Platelet Estimate Polychromasia Hypochromasia (manual) Anisocytosis (manual) Target Cells PT INR APTT Puncture Site L rad pCO2 26 L pO2 181 H HCO3 22.8 ABG pH 7.50 H ABG Total CO2 21.1 L ABG O2 Saturation 100.1 H ABG Base Excess -2.8 L ABG Hemoglobin 4.8 L ABG Carboxyhemoglobin 1.6 H POC ABG HHb (Measured) -0.1 L ABG Methemoglobin 1.6 Stephen Test Pos ABG Potassium A-a O2 Difference 72.0 Respiratory Index 0.4 Hgb O2 Saturation 97.0 Glucose Lactate Vent Mode Prvc Mechanical Rate 14 FiO2 40.0 Tidal Volume 450 PEEP 5 Crit Value 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 Summer bah 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 Crit Value Called By Jo meza rt Crit Value Read Back Y Blood Gas Notified Time 538 Sodium 124 L Potassium 3.0 L Chloride 88 L Carbon Dioxide 24 Anion Gap 15 BUN 10 Creatinine 0.4 L Est GFR ( Amer) > 60 Est GFR (Non-Af Amer) > 60 POC Glucose (mg/dL) 110 Random Glucose 93 Hemoglobin A1c Serum Osmolality Lactic Acid Uric Acid 8.0 H Calcium 7.9 L Phosphorus 1.3 L Magnesium 1.4 L Iron TIBC % Saturation Ferritin 798.0 Total Bilirubin 1.7 H AST 65 H ALT 32 Alkaline Phosphatase 114 Total Creatine Kinase CK-MB (Mass) Troponin I 0.0710 Troponin I, Quant NT-Pro-B Natriuret Pep Total Protein 6.4 Albumin 3.1 L Globulin 3.4 Albumin/Globulin Ratio 0.9 L Amylase Lipase Alpha Fetoprotein CA 19-9 Antigen CA 125 Antigen Vitamin B12 641 Folate 3.0 TSH 3rd Generation 0.40 L Beta HCG, Quant Cortisol AM Sample Arterial Blood Potassium Urine Color Urine Clarity Urine pH Ur Specific [place] Urine Protein Urine Glucose (UA) Urine Ketones Urine Blood Urine Nitrate Urine Bilirubin Urine Urobilinogen Ur Leukocyte Esterase Urine WBC (Auto) Urine RBC (Auto) Urine Bacteria Urine Osmolality Ur Random Sodium Ur Random Potassium Urine HCG, Qual Salicylates Urine Opiates Screen Urine Methadone Screen Acetaminophen Ur Barbiturates Screen Ur Phencyclidine Scrn Ur Amphetamines Screen U Benzodiazepines Scrn U Oth Cocaine Metabols U Cannabinoids Screen Alcohol, Quantitative Serum Ketones Blood Type Antibody Screen 08/31/17 08/31/17 08/31/17 06:26 06:26 06:26 WBC RBC Hgb Hct MCV MCH MCHC RDW Plt Count MPV Neut % (Auto) Lymph % (Auto) [place] % (Auto) Eos % (Auto) Baso % (Auto) Neut # Lymph # [place] # Eos # Baso # Neutrophils % (Manual) Lymphocytes % (Manual) Monocytes % (Manual) Eosinophils % (Manual) Platelet Estimate Polychromasia Hypochromasia (manual) Anisocytosis (manual) Target Cells PT INR APTT Puncture Site pCO2 pO2 HCO3 ABG pH ABG Total CO2 ABG O2 Saturation ABG Base Excess ABG Hemoglobin ABG Carboxyhemoglobin POC ABG HHb (Measured) ABG Methemoglobin Stephen Test ABG Potassium A-a O2 Difference Respiratory Index Hgb O2 Saturation Glucose Lactate Vent Mode Mechanical Rate FiO2 Tidal Volume PEEP Crit Value Called To Crit Value Called By Crit Value Read Back Blood Gas Notified Time Sodium Potassium Chloride Carbon Dioxide Anion Gap BUN Creatinine Est GFR ( Amer) Est GFR (Non-Af Amer) POC Glucose (mg/dL) Random Glucose Hemoglobin A1c 5.9 Serum Osmolality Lactic Acid Uric Acid Calcium Phosphorus Magnesium Iron TIBC % Saturation 78 H Ferritin Total Bilirubin AST ALT Alkaline Phosphatase Total Creatine Kinase CK-MB (Mass) Troponin I Troponin I, Quant NT-Pro-B Natriuret Pep Total Protein Albumin Globulin Albumin/Globulin Ratio Amylase Lipase Alpha Fetoprotein CA 19-9 Antigen CA 125 Antigen Vitamin B12 Folate TSH 3rd Generation Beta HCG, Quant Cortisol AM Sample 38.8 H Arterial Blood Potassium Urine Color Urine Clarity Urine pH Ur Specific [place] Urine Protein Urine Glucose (UA) Urine Ketones Urine Blood Urine Nitrate Urine Bilirubin Urine Urobilinogen Ur Leukocyte Esterase Urine WBC (Auto) Urine RBC (Auto) Urine Bacteria Urine Osmolality Ur Random Sodium Ur Random Potassium Urine HCG, Qual Salicylates Urine Opiates Screen Urine Methadone Screen Acetaminophen Ur Barbiturates Screen Ur Phencyclidine Scrn Ur Amphetamines Screen U Benzodiazepines Scrn U Oth Cocaine Metabols U Cannabinoids Screen Alcohol, Quantitative Serum Ketones Blood Type Antibody Screen 08/31/17 08/31/17 08/31/17 06:26 06:33 08:59 WBC 11.6 H RBC 2.41 L Hgb 7.7 L Hct 23.1 L MCV 96.1 MCH 32.1 H MCHC 33.4 RDW 16.6 H Plt Count 156 MPV 7.8 Neut % (Auto) 85.5 H Lymph % (Auto) 7.1 L [place] % (Auto) 7.0 Eos % (Auto) 0.1 Baso % (Auto) 0.3 Neut # 9.9 H Lymph # 0.8 L [place] # 0.8 Eos # 0.0 Baso # 0.0 Neutrophils % (Manual) 87 H Lymphocytes % (Manual) 9 L Monocytes % (Manual) 3 Eosinophils % (Manual) 1 Platelet Estimate Normal Polychromasia Slight Hypochromasia (manual) Slight Anisocytosis (manual) Slight Target Cells Slight PT INR APTT Puncture Site pCO2 pO2 HCO3 ABG pH ABG Total CO2 ABG O2 Saturation ABG Base Excess ABG Hemoglobin ABG Carboxyhemoglobin POC ABG HHb (Measured) ABG Methemoglobin Stephen Test ABG Potassium A-a O2 Difference Respiratory Index Hgb O2 Saturation Glucose Lactate Vent Mode Mechanical Rate FiO2 Tidal Volume PEEP Crit Value Called To Crit Value Called By Crit Value Read Back Blood Gas Notified Time Sodium Potassium Chloride Carbon Dioxide Anion Gap BUN Creatinine Est GFR ( Amer) Est GFR (Non-Af Amer) POC Glucose (mg/dL) Random Glucose Hemoglobin A1c Serum Osmolality Lactic Acid Uric Acid Calcium Phosphorus Magnesium Iron TIBC % Saturation Ferritin Total Bilirubin AST ALT Alkaline Phosphatase Total Creatine Kinase CK-MB (Mass) Troponin I Troponin I, Quant NT-Pro-B Natriuret Pep Total Protein Albumin Globulin Albumin/Globulin Ratio Amylase Lipase Alpha Fetoprotein CA 19-9 Antigen CA 125 Antigen Vitamin B12 Folate TSH 3rd Generation Beta HCG, Quant Cortisol AM Sample Arterial Blood Potassium Urine Color Urine Clarity Urine pH Ur Specific [place] Urine Protein Urine Glucose (UA) Urine Ketones Urine Blood Urine Nitrate Urine Bilirubin Urine Urobilinogen Ur Leukocyte Esterase Urine WBC (Auto) Urine RBC (Auto) Urine Bacteria Urine Osmolality 495 Ur Random Sodium 15 Ur Random Potassium 24.5 Urine HCG, Qual Salicylates Urine Opiates Screen Urine Methadone Screen Acetaminophen Ur Barbiturates Screen Ur Phencyclidine Scrn Ur Amphetamines Screen U Benzodiazepines Scrn U Oth Cocaine Metabols U Cannabinoids Screen Alcohol, Quantitative Serum Ketones Blood Type O POSITIVE Antibody Screen Negative 08/31/17 08/31/17 08/31/17 11:49 12:35 12:35 WBC RBC Hgb Hct MCV MCH MCHC RDW Plt Count MPV Neut % (Auto) Lymph % (Auto) [place] % (Auto) Eos % (Auto) Baso % (Auto) Neut # Lymph # [place] # Eos # Baso # Neutrophils % (Manual) Lymphocytes % (Manual) Monocytes % (Manual) Eosinophils % (Manual) Platelet Estimate Polychromasia Hypochromasia (manual) Anisocytosis (manual) Target Cells PT INR APTT Puncture Site pCO2 pO2 HCO3 ABG pH ABG Total CO2 ABG O2 Saturation ABG Base Excess ABG Hemoglobin ABG Carboxyhemoglobin POC ABG HHb (Measured) ABG Methemoglobin Stephen Test ABG Potassium A-a O2 Difference Respiratory Index Hgb O2 Saturation Glucose Lactate Vent Mode Mechanical Rate FiO2 Tidal Volume PEEP Crit Value Called To Crit Value Called By Crit Value Read Back Blood Gas Notified Time Sodium 127 L Potassium 3.7 Chloride 94 L Carbon Dioxide 25 Anion Gap 11 BUN 8 Creatinine 0.3 L Est GFR ( Amer) > 60 Est GFR (Non-Af Amer) > 60 POC Glucose (mg/dL) 139 H Random Glucose 79 Hemoglobin A1c Serum Osmolality Lactic Acid Uric Acid Calcium 8.0 L Phosphorus 1.8 L Magnesium 1.8 Iron TIBC % Saturation Ferritin Total Bilirubin AST ALT Alkaline Phosphatase Total Creatine Kinase CK-MB (Mass) Troponin I 0.0470 Troponin I, Quant NT-Pro-B Natriuret Pep Total Protein Albumin Globulin Albumin/Globulin Ratio Amylase Lipase Alpha Fetoprotein CA 19-9 Antigen CA 125 Antigen Vitamin B12 Folate TSH 3rd Generation Beta HCG, Quant Cortisol AM Sample Arterial Blood Potassium Urine Color Urine Clarity Urine pH Ur Specific [place] Urine Protein Urine Glucose (UA) Urine Ketones Urine Blood Urine Nitrate Urine Bilirubin Urine Urobilinogen Ur Leukocyte Esterase Urine WBC (Auto) Urine RBC (Auto) Urine Bacteria Urine Osmolality Ur Random Sodium Ur Random Potassium Urine HCG, Qual Salicylates < 1.0 Urine Opiates Screen Urine Methadone Screen Acetaminophen < 10.0 L Ur Barbiturates Screen Ur Phencyclidine Scrn Ur Amphetamines Screen U Benzodiazepines Scrn U Oth Cocaine Metabols U Cannabinoids Screen Alcohol, Quantitative Serum Ketones Blood Type Antibody Screen 08/31/17 08/31/17 08/31/17 12:35 12:35 12:35 WBC RBC Hgb Hct MCV MCH MCHC RDW Plt Count MPV Neut % (Auto) Lymph % (Auto) [place] % (Auto) Eos % (Auto) Baso % (Auto) Neut # Lymph # [place] # Eos # Baso # Neutrophils % (Manual) Lymphocytes % (Manual) Monocytes % (Manual) Eosinophils % (Manual) Platelet Estimate Polychromasia Hypochromasia (manual) Anisocytosis (manual) Target Cells PT INR APTT Puncture Site pCO2 pO2 HCO3 ABG pH ABG Total CO2 ABG O2 Saturation ABG Base Excess ABG Hemoglobin ABG Carboxyhemoglobin POC ABG HHb (Measured) ABG Methemoglobin Stephen Test ABG Potassium A-a O2 Difference Respiratory Index Hgb O2 Saturation Glucose Lactate Vent Mode Mechanical Rate FiO2 Tidal Volume PEEP Crit Value Called To Crit Value Called By Crit Value Read Back Blood Gas Notified Time Sodium Potassium Chloride Carbon Dioxide Anion Gap BUN Creatinine Est GFR ( Amer) Est GFR (Non-Af Amer) POC Glucose (mg/dL) Random Glucose Hemoglobin A1c Serum Osmolality 270 L Lactic Acid Uric Acid Calcium Phosphorus Magnesium Iron TIBC % Saturation Ferritin Total Bilirubin AST ALT Alkaline Phosphatase Total Creatine Kinase CK-MB (Mass) Troponin I Troponin I, Quant NT-Pro-B Natriuret Pep Total Protein Albumin Globulin Albumin/Globulin Ratio Amylase 160 H Lipase 217 Alpha Fetoprotein 3.7 CA 19-9 Antigen 54.0 H CA 125 Antigen 157 H Vitamin B12 Folate TSH 3rd Generation Beta HCG, Quant Cortisol AM Sample Arterial Blood Potassium Urine Color Urine Clarity Urine pH Ur Specific [place] Urine Protein Urine Glucose (UA) Urine Ketones Urine Blood Urine Nitrate Urine Bilirubin Urine Urobilinogen Ur Leukocyte Esterase Urine WBC (Auto) Urine RBC (Auto) Urine Bacteria Urine Osmolality Ur Random Sodium Ur Random Potassium Urine HCG, Qual Salicylates Urine Opiates Screen Urine Methadone Screen Acetaminophen Ur Barbiturates Screen Ur Phencyclidine Scrn Ur Amphetamines Screen U Benzodiazepines Scrn U Oth Cocaine Metabols U Cannabinoids Screen Alcohol, Quantitative Serum Ketones Blood Type Antibody Screen Assessment & Plan (1) Anemia Assessment and Plan: Severe microcytic anemia in this patient with chronic alcohol abuse, with no evidence of bleeding, hemolysis, normal iron studies. Agree with work up for hemoglobinopathy, anemia probably multifactorial- chronic disease, nutritional, ??blood loss. Transfuse one unit PRBC today Status: Acute
[2017-08-31] MEDS: White Petrolatum/Mineral Oil Ophth Oint(3.5 gm) OS PRN (16:47)
--- NOTE | 2017-08-31 18:32 | PCM.PROC ---
Procedures Attestation:: I certify that I have explained the specified Operation(s) or Procedure(s), risks, benefits and reasonable alternatives to the Patient and/or other person responsible. The opportunity was given to ask questions and all questions answered - Central Line Placement Right Internal Jugular Triple Lumen Catheter Aseptic technique was employed throughout the procedure: Full sterile barriers ( mask, hair cover, sterile gown, sterile gloves), Full body sterile drape, Chloraprep Antiseptic: 30 second prep for IJ or SC sites CVP Time Out Performed: Yes Pt. Placed on Pulse Ox Monitor: Yes Central Line Prep: Chlorhexidine-Alcohol Combination Local Anesthesia Used: Lidocaine 1% Ultrasound Used for Placement: Yes Central Line Lumen Inserted: triple Central Line Length: 20 cm Post Procedure: Sutured in Place, Good Blood Return, All Ports Aspirated, Flushed, Capped, Sterile Dressing Applied Secured by: Suture Post procedure dressing: Chlorhexidine disc (Biopatch) Post Procedure X-Ray: Yes Patient Tolerated Procedure: No Complications Immediate Complications: None
[2017-08-31] MEDS ORDERED: levETIRAcetam 500 MG in Sodium Chloride 0.9% 100 ML IV ONE (19:00)
[2017-08-31 19:28] LABS: BASO % 0.2 % (0.0-2.0); HEMATOCRIT 17.7 % (34.0-47.0); LYMPH # 0.4 K/uL (1.0-4.3); LYMPH % 4.6 % (20.0-40.0); MEAN CORPUSCULAR HGB CONC 33.7 g/dL (33.0-37.0); MEAN PLATELET VOLUME 8.2 fL (7.2-11.7); MONO # 0.2 K/uL (0.0-0.8); MONO % 2.1 % (0.0-10.0); PLATELET COUNT 132 K/uL (130-400); RED CELL DISTRIBUTION WIDTH 16.7 % (11.5-14.5); WHITE BLOOD COUNT 9.2 K/uL (4.8-10.8)
[2017-08-31 19:38] LABS: CHLORIDE 96 mmol/L (98-107); SODIUM 128 mmol/L (132-148)
[2017-08-31 19:40] LABS: ALB/GLOB RATIO 1.1 (1.0-2.1); AST/SGOT 44 U/L (14-36); BILIRUBIN,TOTAL 1.1 mg/dL (0.2-1.3); CARBON DIOXIDE 22 mmol/L (22-30); GFR AFRICAN-AMERICAN > 60; TOTAL PROTEIN 4.7 g/dL (6.3-8.3)
[2017-08-31 19:41] LABS: ALKALINE PHOSPHATASE 90 U/L (38-126); ALT/SGPT 30 U/L (9-52); BLOOD UREA NITROGEN 7 mg/dL (7-17); CALCIUM 7.6 mg/dl (8.6-10.4); GLUCOSE,RANDOM 80 mg/dL (65-105); MAGNESIUM 1.6 mg/dL (1.6-2.3); PHOSPHOROUS 2.4 mg/dL (2.5-4.5)
[2017-08-31 20:12] LABS: NEUTROPHIL 87 % (50-75); TOTAL CELLS COUNTED 100
[2017-08-31 20:13] LABS: LARGE PLATELETS PRESENT
[2017-08-31 20:26] LABS: RETIC% 0.1 % (0.5-1.5)
--- NOTE | 2017-08-31 20:51 | CON ---
CARDIOLOGY CONSULTATION DATE: HISTORY OF PRESENT ILLNESS: A 36-year-old female was brought in following a cardiorespiratory arrest. She was found home unresponsive by her . History is obtained from review of the chart only. The patient is intubated on the ventilator. The patient's case was discussed with the RN who was at the bedside. The patient has a history of severe EtOH abuse. This morning, she was found to be unconscious by her . EMS was called. She was asystole. was started. Epinephrine was given and she is on hypothermia protocol in ICU. Details of the severe past medical history and review of systems is not available. ALLERGIES: PER CHART HISTORY, SHE IS ALLERGIC TO PORK, TOMATO, AND WHEAT. She does have a history of depression. CAT scan of the head was unremarkable. CAT scan of the abdomen had shown necrotizing pancreatitis. Electrolytes were markedly abnormal, lactic acid was elevated. Low magnesium, low sodium, low potassium, and abnormal LFTs were noted. EKG shows sinus tachycardia. PHYSICAL EXAMINATION: GENERAL: Shows middle-aged female who has been intubated on the ventilator, unresponsive. VITAL SIGNS: Blood pressure is 90/60 after Versed. She is not on vasopressin. Heart rate is 110 and regular. LUNGS: Could not be auscultated properly, but appears to be clear. ABDOMEN: Soft. EXTREMITIES: Distal pulses are 1+. LABORATORY DATA: EKG, sinus tachycardia. Hemoglobin is 7.7. INR was 1.3. BUN is 10 and creatinine is 0.5. Hemoglobin A1c was 5.9. Troponin 0.05 and repeat one is 0.07. ASSESSMENT: A 36-year-old female with the cardiorespiratory arrest. RECOMMENDATION: At this point, we will continue with electrolyte management as per nephrology. Cardiac barry, would recommend echocardiogram, which is ordered and will get it done today. No specific treatment is recommended cardiac barry. I thank you kindly. Prognosis remains poor. Tal Haq MD
--- NOTE | 2017-08-31 21:12 | HP ---
CHIEF COMPLAINT: The patient was found unresponsive in the bathroom and brought into ED, status post cardiac arrest. HISTORY OF PRESENT ILLNESS: Ms. Young is a 36-year-old female with past medical history of alcohol abuse, anemia, questionable depression, came into the ED, brought by EMS after the patient was found unresponsive in the bathroom by the patient's as documented in the chart. Unable to obtain any detailed history from the patient or the patient's family. Called the patient's next of kin, Nixon Sam at [phone] and left message. No one was available to obtain more detailed history, but as per the available records, the patient was found unresponsive in the bathroom by the patient's for unknown limit of time and EMS found her in asystole, started ACLS protocol and regained pulses. Upon arrival to the emergency room, the patient was hypotensive and tachycardic. The patient was intubated on the field and the patient was given 2 doses of epinephrine. In the emergency room, the patient was found to be having multiple electrolyte abnormalities and the patient was intubated and transferred the patient to ICU. Review of her old records show from 2013, she had history of vaginal bleeding. Her ultrasound showed fibroid. In 2013, the patient was admitted to [facility], was evaluated by GI, had EGD and colonoscopy and received Fioricet. Recent admission to [facility] was in 12/2016. In December, the patient was admitted for abdominal pain. She has history of anemia and alcohol abuse. 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 FAMILY HISTORY: Nothing contributory to the present illness. PAST SURGICAL HISTORY: Unable to obtain. SOCIAL HISTORY: As per records, she smokes for more than 15 years, drinks everyday, lives with family. ALLERGIES: SHE IS ALLERGIC TO PORK,TOMATO AND BEET. HOME MEDICATIONS: Her home medications include ciprofloxacin 500 mg p.o. b.i.d., Pepcid 40 mg daily, folic acid 1 mg p.o. daily, multivitamin 1 tablet daily, Protonix 40 mg p.o. daily, and Lyrica 25 mg p.o. q. 12 hours. REVIEW OF SYSTEMS: Unable to obtain review of systems as the patient is unresponsive and intubated. PHYSICAL EXAMINATION: GENERAL: Young female, lying in bed unresponsive with multiple twitching of the body. VITAL SIGNS: Blood pressure 121/85, pulse 93, respirations 24, on vent with 40% FiO2 of flow rate 14 with saturations at 96% to 100%. HEENT: Pupils are reacting to light. No icterus. Positive conjunctivae pallor. The ET tube in the oral cavity. NECK: Supple. LUNGS: Bilateral vesicular breath sounds. No wheezing. No rhonchi. CARDIOVASCULAR: S1 and S2 present, regular. ABDOMEN: Soft. Bowel sounds present. EXTREMITIES: No edema noted. CENTRAL NERVOUS SYSTEM: Intubated, unresponsive, on Versed. LABORATORY DATA: Labs done from the ED; WBC 14.5, hemoglobin 8.0, hematocrit 24.3, and platelets 255. PT 14.4, INR 1.3 and PTT 28. ABG: pH 7.43, PCO2 of 26, PO2 of 459 on 100% FiO2, tidal volume 450, PEEP of 5. Sodium 121, potassium 2.5, chloride 79, bicarb 15, BUN 10, and creatinine 0.5. Glucose 219 and calcium 8.2, lactate decreased to 5.5, initial lactate on ABG was 8.1. Calcium 8.2, magnesium 1.3, and phosphorus 2.2. Iron 227, TIBC 277, iron saturation 82%, ferritin 798, and bilirubin 9.7. AST 65, ALT 32, and alkaline phosphatase 114. CPK 78. Troponin x3 negative. ProBNP 48.5, total protein 6.5, and albumin 3.3. Beta hCG negative. A.m. cortisol 38.8. UA, specific gravity 1.011, pH 6.0, blood negative, nitrite negative, urine beta hCG negative. Urine tox screen positive for benzodiazepine and cannabinoids. Alcohol level is 16. Serum ketone is negative. Chest x-ray, no acute cardiopulmonary is identified. Nasogastric tube, termination of stoma at the site of nasogastric junction. Advance the catheter recommended. Abdomen and pelvis CT consistent with marked normal pancreas being enlarged with numerous areas of low attenuation, some of which are depressed within the parenchyma and some of which are rounded collections, necrotic hemorrhagic pancreatitis and cystic neoplasms. We will put considerations. These findings are similar to the findings found on CAT scan done in 12/2016. CT of the head, no acute findings. ASSESSMENT: Young female with prior history of anemia, alcohol abuse, depression, multiple abortions, status post esophagogastroduodenoscopy and colonoscopy in the past, who has multiple admissions to [facility], recent admission to [facility] was in 12/2016, admitted for abdominal pain. She also has chronic pancreatitis, pancreatic cyst, EtOH abuse, smoking history, brought into the hospital status post cardiac arrest after the patient was found unresponsive in the house. EMS found her in asystole after CPR pulses are felt. The patient was intubated. Upon arrival to ED, she was intubated and hypotensive. In the emergency room. the patient was found to be unresponsive with multiple electrolyte and lab abnormalities and the patient is being admitted to ICU and the patient developed seizures and remains intubated. 1. Status post cardiac arrest. 2. Acute respiratory failure. 3. Seizure-like activity,rule out secondary to alcohol withdrawal. 4. Rule out anoxic encephalopathy. 5. Alcohol intoxication with elevated alcohol level. 6. Slightly elevated white blood cell count. 7. Anemia. 8. Hyponatremia, hypokalemia, hypomagnesemia, hypophosphatemia. 9. Abnormal liver function tests, positive drug screen with cannabinoids and benzodiazepines, anemia with iron saturation, elevated lactate level, probably secondary to postcardiac arrest. 10. Abnormal EKG on arrival to ED, now in normal sinus rhythm. PLAN: The patient is being admitted to Intensive Care Unit. Monitor her neurologic status. The patient received Keppra and Ativan as needed, being started on Versed. We will request Neurology evaluation, will require EEG. Monitor her respiratory status, remains intubated. FiO2 decreased to 40%. We will titrate Versed to keep O2 saturations more than 90%. Cardiac enzymes are negative. We will check echocardiogram. We will obtain Cardiology evaluation. We will transfuse PRBC's as needed. The patient received multiple supplementations of potassium. We will give potassium phosphate 20 mL more, repeat BMP in the afternoon. We will give magnesium sulfate 2 g IV. We will give thiamine 500 mg one dose and continue with IV fluids with normal saline. Start NGT feeds. We will obtain Renal consult with Dr. Ramos. Discussed with Dr. Parra, who is covering. We will obtain Hematology evaluation. We will check amylase and lipase levels and tumor markers ordered. We will continue with supportive care, try to contact the patient's family. Unable to get more detailed information as there was no answer. I left message on the voicemail. The patient's condition is very guarded and prognosis is very poor. We will add further recommendation as her clinical course progresses. Phoenix Caballero MD
[2017-08-31] MEDS ORDERED: Fosphenytoin 100 mg/2 ml Inj IV SCH (22:00)
[2017-09-01] MEDS: Propofol 10 mg/ml 1,000 MG/100 ML VIAL IV PRN ×2 (04:15→23:45)
[2017-09-01] MEDS: White Petrolatum/Mineral Oil Ophth Oint(3.5 gm) OS PRN ×3 (04:50→20:00)
[2017-09-01] MEDS: levETIRAcetam 1,000 MG in Sodium Chloride 0.9% 100 ML IVPB SCH ×2 (05:11→17:24)
[2017-09-01 05:59] LABS: ABG ALLEN TEST POS; ABG MECHANICAL RATE 14; ARTERIAL BLOOD GAS MODE PRVC; ATERIAL BLOOD GAS PEEP 5; DRAW SITE L RAD
[2017-09-01 06:14] LABS: BASO % 0.1 % (0.0-2.0); EOS % 0.1 % (0.0-4.0); HEMATOCRIT 20.4 % (34.0-47.0); LYMPH # 0.6 K/uL (1.0-4.3); LYMPH % 6.9 % (20.0-40.0); MEAN CORPUSCULAR HEMOGLOBIN 31.6 pg (27.0-31.0); MEAN CORPUSCULAR HGB CONC 33.6 g/dL (33.0-37.0); MEAN PLATELET VOLUME 8.8 fL (7.2-11.7); MONO # 0.2 K/uL (0.0-0.8); MONO % 1.8 % (0.0-10.0); PLATELET COUNT 119 K/uL (130-400); WHITE BLOOD COUNT 8.7 K/uL (4.8-10.8)
[2017-09-01] MEDS: Midazolam 50 mg/10 ml 100 MG in Sodium Chloride 0.9% 80 ML IV SCH ×3 (06:20→23:45)
[2017-09-01 06:36] LABS: CHLORIDE 102 mmol/L (98-107)
[2017-09-01 06:37] LABS: POTASSIUM 3.4 mmol/L (3.6-5.2); SODIUM 132 mmol/L (132-148)
[2017-09-01 06:39] LABS: ALKALINE PHOSPHATASE 89 U/L (38-126); AST/SGOT 39 U/L (14-36); BILIRUBIN,TOTAL 2.2 mg/dL (0.2-1.3); BLOOD UREA NITROGEN 6 mg/dL (7-17); CARBON DIOXIDE 20 mmol/L (22-30); GFR AFRICAN-AMERICAN > 60; GLUCOSE,RANDOM 71 mg/dL (65-105); TOTAL PROTEIN 5.5 g/dL (6.3-8.3)
[2017-09-01 06:40] LABS: ALT/SGPT 37 U/L (9-52); MAGNESIUM 1.4 mg/dL (1.6-2.3); PHOSPHOROUS 2.4 mg/dL (2.5-4.5)
[2017-09-01 06:41] LABS: ALB/GLOB RATIO 0.8 (1.0-2.1)
[2017-09-01 09:05] LABS: TOTAL CELLS COUNTED 100
[2017-09-01 09:06] LABS: NEUTROPHIL 91 % (50-75)
[2017-09-01] MEDS: Thiamine 100 mg/ml Inj IV SCH (09:09)
--- NOTE | 2017-09-01 09:27 | CP.PCM.PN ---
Subjective - Date & Time of Evaluation Date of Evaluation: 09/01/17 Time of Evaluation: 09:15 - Subjective Subjective: Progress note dictated # Objective - Vital Signs/Intake and Output Vital Signs (last 24 hours): Temp Pulse Resp BP Pulse Ox 96.6 F L 105 H 22 101/73 100 09/01/17 08:00 09/01/17 09:12 09/01/17 09:12 09/01/17 09:12 09/01/17 09:12 Intake and Output: 09/01/17 09/01/17 06:59 18:59 Intake Total 2425.5 309.0 Output Total 270 15 Balance 2155.5 294.0 - Medications Medications: Current Medications Artificial Tears (Lacri-Lube) 1 gm OS Q6H PRN PRN Reason: Sedation Last Admin: 09/01/17 04:50 Dose: 1 gm Heparin Sodium (Porcine) (Heparin) 5,000 units SC Q12 EUSEBIO Last Admin: 08/31/17 21:42 Dose: 5,000 units Midazolam HCl 100 mg/ Sodium (Chloride) 100 mls @ 5 mls/hr IV .Q20H EUSEBIO; 5 MG/ HR PRN Reason: Protocol Last Admin: 09/01/17 06:20 Dose: Not Given Propofol (Diprivan) 1,000 mg in 100 mls @ 0.381 mls/hr IV .Q24H PRN; Protocol; 1 MCG/KG/MIN PRN Reason: TITRATE PER MD ORDER Last Admin: 09/01/17 04:15 Dose: 12 mcg/kg/min, 4.572 mls/hr Levetiracetam 1,000 mg/ Sodium (Chloride) 110 mls @ 420 mls/hr IVPB Q12H EUSEBIO Last Admin: 09/01/17 05:11 Dose: 420 mls/hr Potassium Chloride 20 meq/ (Sodium Chloride) 1,010 mls @ 150 mls/hr IV .Q6H44M EUSEBIO Last Admin: 09/01/17 04:49 Dose: 150 mls/hr Pantoprazole Sodium (Protonix Inj) 40 mg IVP DAILY [facility] Last Admin: 09/01/17 09:09 Dose: 40 mg Pneumococcal Polyvalent Vaccine (Pneumovax 23 Vaccine) 0.5 ml IM .ONCE ONE Stop: 09/03/17 11:50 Thiamine HCl (Vitamin B1 Inj) 100 mg IV DAILY EUSEBIO Last Admin: 09/01/17 09:09 Dose: 100 mg - Labs Labs: 09/01/17 06:07 09/01/17 06:07 PT 14.4 SECONDS (9.7-12.2) H 08/30/17 19:30 INR 1.3 08/30/17 19:30 APTT 28 SECONDS (21-34) 08/30/17 19:30
[2017-09-01] MEDS: Magnesium Sulfate 1 gm in D5W 1 GM/100 ML BAG IVPB SCH ×2 (10:10→10:51)
--- NOTE | 2017-09-01 10:21 | RAD ---
HISTORY: Status post the IJ central line placement COMPARISON: Chest dated 08/31/2017 FINDINGS: In situ ETT, tip of which is estimated to be approximately 3.3 cm above julieth. In situ NGT, tip of which overlies the left upper quadrant of the abdomen. Right IJ central venous line with tip in the RA/SVC junction. LUNGS: Suspect mild bibasilar atelectasis. However overlying defibrillator pad partially obscures detail left lung base PLEURA: No significant pleural effusion identified, no pneumothorax apparent. CARDIOVASCULAR: Normal. OSSEOUS STRUCTURES: No significant abnormalities. VISUALIZED UPPER ABDOMEN: Normal. OTHER FINDINGS: None. IMPRESSION: Support lines and tubes as above. Suspect mild bibasilar atelectasis. The the
[2017-09-01] MEDS: Albumin Human 25% (12.5 gm/50 ml) IV SCH ×5 (10:32→19:39)
[2017-09-01 10:45] LABS: RBC URINE 108 /hpf (0-3); URINE BILIRUBIN NEGATIVE (NEGATIVE); URINE BLOOD 2+ (NEGATIVE); URINE COLOR Amber (YELLOW); URINE GLUCOSE (UA) NORMAL (Normal); URINE KETONE 1+ mg/dL (NEGATIVE); URINE LEUKOCYTE ESTERASE 1+ Leu/uL (Negative); URINE PROTEIN 1+ mg/dL (NEGATIVE); WBC URINE 17 /hpf (0-5)
[2017-09-01] MEDS: Potassium & Sodium Phosphate NG SCH ×3 (10:50→23:45)
--- NOTE | 2017-09-01 11:41 | CP.PCM.PN ---
Subjective - Date & Time of Evaluation Date of Evaluation: 09/01/17 Time of Evaluation: 11:36 - Subjective Subjective: RENAL PROGRESS NOTE Seen and examined in status VS reviewed Gen: intubated and sedated sclera: anicteric op: et tube neck; supple cv: +S1+s2 lungs coarse at base, mechanical bs abd soft ext trace edema neuro: sedated psych: sedated skin: no rash imp: Hyponatremia/ Hypokalemia / Etoh abuse/ VDRF-hypoxic / Anoxic brain injury / hypomag / hypophosphatemia plan: UOP is dropping cr likely to go up soon likely ischemic atn continue supportive care w/ IVF replete K - k was running Vent weaning per primary AED per neuro phos improving, if further improved, d/c neutraphos tomorrow ordered 1 gram iv mag discussed w/ body finisher Objective - Vital Signs/Intake and Output Vital Signs (last 24 hours): Temp Pulse Resp BP Pulse Ox 96.4 F L 108 H 20 113/65 100 09/01/17 10:00 09/01/17 11:28 09/01/17 11:28 09/01/17 11:29 09/01/17 11:28 Intake and Output: 09/01/17 09/01/17 06:59 18:59 Intake Total 2525.5 747.5 Output Total 270 45 Balance 2255.5 702.5 - Medications Medications: Current Medications Albumin Human (Albumin Human 25% (12.5 Gm/50 Ml)) 12.5 gm IV Q2H EUSEBIO Stop: 09/01/17 18:01 Last Admin: 09/01/17 10:32 Dose: 12.5 gm Artificial Tears (Lacri-Lube) 1 gm OS Q6H PRN PRN Reason: Sedation Last Admin: 09/01/17 04:50 Dose: 1 gm Heparin Sodium (Porcine) (Heparin) 5,000 units SC Q12 EUSEBIO Last Admin: 09/01/17 10:10 Dose: 5,000 units Midazolam HCl 100 mg/ Sodium (Chloride) 100 mls @ 5 mls/hr IV .Q20H EUSEBIO; 5 MG/ HR PRN Reason: Protocol Last Admin: 09/01/17 11:13 Dose: 5 mg/hr, 5 mls/hr Propofol (Diprivan) 1,000 mg in 100 mls @ 0.381 mls/hr IV .Q24H PRN; Protocol; 1 MCG/KG/MIN PRN Reason: TITRATE PER MD ORDER Last Admin: 09/01/17 04:15 Dose: 12 mcg/kg/min, 4.572 mls/hr Levetiracetam 1,000 mg/ Sodium (Chloride) 110 mls @ 420 mls/hr IVPB Q12H [facility] Last Admin: 09/01/17 05:11 Dose: 420 mls/hr Potassium Chloride 20 meq/ (Sodium Chloride) 1,010 mls @ 75 mls/hr IV .[id number] [facility] Pantoprazole Sodium (Protonix Inj) 40 mg IVP DAILY [facility] Last Admin: 09/01/17 09:09 Dose: 40 mg Pneumococcal Polyvalent Vaccine (Pneumovax 23 Vaccine) 0.5 ml IM .ONCE ONE Stop: 09/03/17 11:50 Potassium Phos/Sodium Phos (Neutra-Phos) 1 pkt NG Q6 [facility] Last Admin: 09/01/17 10:50 Dose: 1 pkt Thiamine HCl (Vitamin B1 Inj) 100 mg IV DAILY [facility] Last Admin: 09/01/17 09:09 Dose: 100 mg - Labs Labs: 09/01/17 06:07 09/01/17 06:07 PT 14.4 SECONDS (9.7-12.2) H 08/30/17 19:30 INR 1.3 08/30/17 19:30 APTT 28 SECONDS (21-34) 08/30/17 19:30
[2017-09-01] MEDS ORDERED: Magnesium Sulfate 1 gm in D5W 1 GM/100 ML BAG IVPB SCH (11:45)
--- NOTE | 2017-09-01 12:04 | RAD ---
HISTORY: intubation COMPARISON: Comparison made with chest radiograph 08/31/2017 at 1838 hours FINDINGS: In situ ETT, tip of which lies approximately 3.85 cm above julieth. NGT is present, tip of which appears to overlie left upper quadrant of the abdomen. . Right IJ central venous line with tip in the SVC/RA junction LUNGS: There are opacities seen in the mid to lower lung chilel right greater than left may represent atelectasis and or developing infiltrates PLEURA: No significant pleural effusion identified, no pneumothorax apparent. CARDIOVASCULAR: Normal. OSSEOUS STRUCTURES: No significant abnormalities. VISUALIZED UPPER ABDOMEN: Normal. OTHER FINDINGS: None. IMPRESSION: Support lines and tubes as above. Bilateral lower lobe opacities left greater than right. Findings may represent atelectasis and or developing infiltrates
--- NOTE | 2017-09-01 15:21 | CP.CCUPN ---
CCU Subjective - Physician Review Events Since Last Encounter (Free Text): 09/01/17 15:21 status epilepticus CCU Objective - Vital Signs / Intake & Output Vital Signs (Last 4 hours): Vital Signs Temp Pulse Resp BP Pulse Ox 09/01/17 14:00 97.8 F 09/01/17 13:59 112 H 23 101/71 09/01/17 13:29 111 H 23 99/66 L 09/01/17 12:59 106 H 24 107/62 09/01/17 12:30 108 H 24 97/64 L 09/01/17 12:00 97.4 F L 108 H 24 113/65 100 09/01/17 11:59 108 H 23 101/70 100 09/01/17 11:29 113/65 09/01/17 11:28 108 H 20 100 Intake and Output (Last 8hrs): Intake & Output 09/01/17 09/01/17 09/01/17 06:59 14:59 22:59 Intake Total 1849.5 1661.0 Output Total 175 165 Balance 1674.5 1496.0 Weight 142 lb Intake: IV 200 Intake, IV Amount 1341.5 1481.0 Right Distal Port 41.5 36.0 Internal Jugular Right Medial Port 100 320 Internal Jugular Right Proximal Port 1200 1000 Internal Jugular Right Wrist 125 Tube Feeding 80 Blood Product 278 Apheresis Rbc Cp2d As3 Lr 278 2nd Unit [id number] Other 30 100 Apheresis Rbc Cp2d As3 Lr 30 2nd Unit [id number] Output: Urine 175 165 Urethral (Cheema) 175 165 Other: # Bowel Movements 1 - Physical Exam Head: Positive for: Atraumatic, Normocephalic Pupils: Positive for: Sluggish Extroacular Muscles: Negative for: EOMI Mouth: Positive for: Moist Mucous Membranes Respiratory/Chest: Positive for: Good Air Exchange, Other (intubated ) Cardiovascular: Positive for: Normal S1, S2, Tachycardic Abdomen: Positive for: Normal Bowel Sounds. Negative for: Distention Upper Extremity: Negative for: Edema Lower Extremity: Negative for: Edema Neurological: Negative for: GCS=15, Speech Normal Skin: Positive for: Normal Color - Medications Active Medications: Active Medications Generic Name Dose Route Start Last Admin Trade Name Freq PRN Reason Stop Dose Admin Albumin Human 12.5 gm 09/01/17 10:00 09/01/17 14:33 Albumin Human 25% (12.5 Gm/50 Ml) IV 09/01/17 18:01 12.5 gm Q2H EUSEBIO Administration Artificial Tears 1 gm 08/31/17 12:00 09/01/17 13:00 Lacri-Lube OS 1 gm Q6H PRN Administration Sedation Heparin Sodium (Porcine) 5,000 units 08/30/17 22:00 09/01/17 10:10 Heparin SC 5,000 units Q12 EUSEBIO Administration Midazolam HCl 100 mg/ Sodium 100 mls @ 5 mls/hr 08/31/17 08:29 09/01/17 11:13 Chloride IV 5 mg/hr .Q20H EUSEBIO 5 mls/hr Protocol Administration 5 MG/HR Propofol 1,000 mg in 100 mls @ 0.381 mls/hr 08/31/17 11:11 09/01/17 04:15 Diprivan IV 12 mcg/kg/min .Q24H PRN 4.572 mls/hr TITRATE PER MD ORDER Administration Protocol 1 MCG/KG/MIN Levetiracetam 1,000 mg/ Sodium 110 mls @ 420 mls/hr 09/01/17 06:00 09/01/17 05:11 Chloride IVPB 420 mls/hr Q12H EUSEBIO Administration Potassium Chloride 20 meq/ 1,010 mls @ 75 mls/hr 09/01/17 09:57 09/01/17 11: 44 Sodium Chloride IV 75 mls/hr .[id number] EUSEBIO Administration Pantoprazole Sodium 40 mg 08/31/17 10:00 09/01/17 09:09 Protonix Inj IVP 40 mg DAILY EUSEBIO Administration Pneumococcal Polyvalent Vaccine 0.5 ml 09/03/17 11:49 Pneumovax 23 Vaccine IM 09/03/17 11:50 .ONCE ONE Potassium Phos/Sodium Phos 1 pkt 09/01/17 10:30 09/01/17 10:50 Neutra-Phos NG 1 pkt Q6 EUSEBIO Administration Thiamine HCl 100 mg 08/30/17 22:15 09/01/17 09:09 Vitamin B1 Inj IV 100 mg DAILY EUSEBIO Administration - Patient Studies Lab Studies: Lab Studies 09/01/17 09/01/17 09/01/17 Range/Units 11:49 10:30 06:07 WBC (4.8-10.8) K/uL RBC (3.80-5.20) Mil/uL Hgb (11.0-16.0) g/dL Hct (34.0-47.0) % MCV (81.0-99.0) fL MCH (27.0-31.0) pg MCHC (33.0-37.0) g/dL RDW (11.5-14.5) % Plt Count (130-400) K/uL MPV (7.2-11.7) fL Neut % (Auto) (50.0-75.0) % Lymph % (Auto) (20.0-40.0) % Logan % (Auto) (0.0-10.0) % Eos % (Auto) (0.0-4.0) % Baso % (Auto) (0.0-2.0) % Neut # (1.8-7.0) K/uL Lymph # (1.0-4.3) K/uL Logan # (0.0-0.8) K/uL Eos # (0.0-0.7) K/uL Baso # (0.0-0.2) K/uL Neutrophils % (Manual) (50-75) % Band Neutrophils % (0-2) % Lymphocytes % (Manual) (20-40) % Monocytes % (Manual) (0-10) % Platelet Estimate (NORMAL) Large Platelets Hypochromasia (manual) Poikilocytosis (manual Anisocytosis (manual) Microcytosis (manual) Tear Drop Cells Franco Cells Retic Count (0.5-1.5) % Puncture Site pCO2 (35-45) mm/Hg pO2 (80-100) mm/Hg HCO3 (21-28) mmol/L ABG pH (7.35-7.45) ABG Total CO2 (22-28) mmol/L ABG O2 Saturation (95-98) % ABG Base Excess (-2.0-3.0) mmol/L Stephen Test ABG Potassium (3.6-5.2) mmol/L A-a O2 Difference mm/Hg Respiratory Index Glucose (65-105) mg/dl Lactate (0.7-2.1) mmol/L Vent Mode Mechanical Rate FiO2 % Tidal Volume PEEP Sodium 132 (132-148) mmol/L Potassium 3.4 L (3.6-5.2) mmol/L Chloride 102 (98-107) mmol/L Carbon Dioxide 20 L (22-30) mmol/L Anion Gap 13 (10-20) BUN 6 L (7-17) mg/dL Creatinine 0.3 L (0.7-1.2) mg/dL Est GFR ( Amer) > 60 Est GFR (Non-Af Amer) > 60 POC Glucose (mg/dL) 102 (65-110) mg/dL Random Glucose 71 (65-105) mg/dL Calcium 8.0 L (8.6-10.4) mg/dl Phosphorus 2.4 L (2.5-4.5) mg/dL Magnesium 1.4 L (1.6-2.3) mg/dL Total Bilirubin 2.2 H (0.2-1.3) mg/dL AST 39 H (14-36) U/L ALT 37 (9-52) U/L Alkaline Phosphatase 89 (38-126) U/L Total Protein 5.5 L (6.3-8.3) g/dL Albumin 2.4 L (3.5-5.0) g/dL Globulin 3.1 (2.2-3.9) gm/dL Albumin/Globulin Ratio 0.8 L (1.0-2.1) Arterial Blood Potassium (3.6-5.2) mmol/L Urine Color Becki (YELLOW) Urine Clarity Turbid (Clear) Urine pH 5.0 (5.0-8.0) Ur Specific [place] 1.026 (1.003-1.030) Urine Protein 1+ H (NEGATIVE) mg/dL Urine Glucose (UA) Normal (Normal) mg/dL Urine Ketones 1+ H (NEGATIVE) mg/dL Urine Blood 2+ H (NEGATIVE) Urine Nitrate Negative (NEGATIVE) Urine Bilirubin Negative (NEGATIVE) Urine Urobilinogen 4.0 H (0.2-1.0) mg/dL Ur Leukocyte Esterase 1+ H (Negative) Tyrell/uL Urine WBC (Auto) 17 H (0-5) /hpf Urine RBC (Auto) 108 H (0-3) /hpf Ur Squamous Epith Cells 1 (0-5) /hpf Amorphous Sediment Few H (<OCC) /ul Blood Type Antibody Screen 09/01/17 09/01/17 09/01/17 Range/Units 06:07 06:02 05:32 WBC 8.7 (4.8-10.8) K/uL RBC 2.17 L (3.80-5.20) Mil/uL Hgb 6.9 L (11.0-16.0) g/dL Hct 20.4 L (34.0-47.0) % MCV 94.0 (81.0-99.0) fL MCH 31.6 H (27.0-31.0) pg MCHC 33.6 (33.0-37.0) g/dL RDW 16.0 H (11.5-14.5) % Plt Count 119 L (130-400) K/uL MPV 8.8 (7.2-11.7) fL Neut % (Auto) 91.1 H (50.0-75.0) % Lymph % (Auto) 6.9 L (20.0-40.0) % Logan % (Auto) 1.8 (0.0-10.0) % Eos % (Auto) 0.1 (0.0-4.0) % Baso % (Auto) 0.1 (0.0-2.0) % Neut # 7.9 H (1.8-7.0) K/uL Lymph # 0.6 L (1.0-4.3) K/uL Logan # 0.2 (0.0-0.8) K/uL Eos # 0.0 (0.0-0.7) K/uL Baso # 0.0 (0.0-0.2) K/uL Neutrophils % (Manual) 91 H (50-75) % Band Neutrophils % 2 (0-2) % Lymphocytes % (Manual) 5 L (20-40) % Monocytes % (Manual) 2 (0-10) % Platelet Estimate Slightly decreased L (NORMAL) Large Platelets Hypochromasia (manual) Moderate Poikilocytosis (manual Slight Anisocytosis (manual) Slight Microcytosis (manual) Tear Drop Cells Slight Franco Cells Slight Retic Count (0.5-1.5) % Puncture Site L rad pCO2 31 L (35-45) mm/Hg pO2 169 H (80-100) mm/Hg HCO3 23.4 (21-28) mmol/L ABG pH 7.44 (7.35-7.45) ABG Total CO2 22.1 (22-28) mmol/L ABG O2 Saturation 100.2 H (95-98) % ABG Base Excess -2.1 L (-2.0-3.0) mmol/L Stephen Test Pos ABG Potassium 3.3 L (3.6-5.2) mmol/L A-a O2 Difference 77.0 mm/Hg Respiratory Index 0.5 Glucose 83 (65-105) mg/dl Lactate 0.7 (0.7-2.1) mmol/L Vent Mode Prvc Mechanical Rate 14 FiO2 40.0 % Tidal Volume 450 PEEP 5 Sodium 135.0 (132-148) mmol/L Potassium (3.6-5.2) mmol/L Chloride 107.0 (98-107) mmol/L Carbon Dioxide (22-30) mmol/L Anion Gap (10-20) BUN (7-17) mg/dL Creatinine (0.7-1.2) mg/dL Est GFR ( Amer) Est GFR (Non-Af Amer) POC Glucose (mg/dL) 83 (65-110) mg/dL Random Glucose (65-105) mg/dL Calcium (8.6-10.4) mg/dl Phosphorus (2.5-4.5) mg/dL Magnesium (1.6-2.3) mg/dL Total Bilirubin (0.2-1.3) mg/dL AST (14-36) U/L ALT (9-52) U/L Alkaline Phosphatase (38-126) U/L Total Protein (6.3-8.3) g/dL Albumin (3.5-5.0) g/dL Globulin (2.2-3.9) gm/dL Albumin/Globulin Ratio (1.0-2.1) Arterial Blood Potassium 3.3 L (3.6-5.2) mmol/L Urine Color (YELLOW) Urine Clarity (Clear) Urine pH (5.0-8.0) Ur Specific [place] (1.003-1.030) Urine Protein (NEGATIVE) mg/dL Urine Glucose (UA) (Normal) mg/dL Urine Ketones (NEGATIVE) mg/dL Urine Blood (NEGATIVE) Urine Nitrate (NEGATIVE) Urine Bilirubin (NEGATIVE) Urine Urobilinogen (0.2-1.0) mg/dL Ur Leukocyte Esterase (Negative) Tyrell/uL Urine WBC (Auto) (0-5) /hpf Urine RBC (Auto) (0-3) /hpf Ur Squamous Epith Cells (0-5) /hpf Amorphous Sediment (<OCC) /ul Blood Type Antibody Screen 08/31/17 08/31/17 08/31/17 Range/Units 23:53 19:14 19:14 WBC 9.2 (4.8-10.8) K/uL RBC 1.86 L (3.80-5.20) Mil/uL Hgb 5.9 L* (11.0-16.0) g/dL Hct 17.7 L (34.0-47.0) % MCV 95.0 (81.0-99.0) fL MCH 32.0 H (27.0-31.0) pg MCHC 33.7 (33.0-37.0) g/dL RDW 16.7 H (11.5-14.5) % Plt Count 132 (130-400) K/uL MPV 8.2 (7.2-11.7) fL Neut % (Auto) 93.1 H (50.0-75.0) % Lymph % (Auto) 4.6 L (20.0-40.0) % Logan % (Auto) 2.1 (0.0-10.0) % Eos % (Auto) 0.0 (0.0-4.0) % Baso % (Auto) 0.2 (0.0-2.0) % Neut # 8.6 H (1.8-7.0) K/uL Lymph # 0.4 L (1.0-4.3) K/uL Logan # 0.2 (0.0-0.8) K/uL Eos # 0.0 (0.0-0.7) K/uL Baso # 0.0 (0.0-0.2) K/uL Neutrophils % (Manual) 87 H (50-75) % Band Neutrophils % 4 H (0-2) % Lymphocytes % (Manual) 6 L (20-40) % Monocytes % (Manual) 3 (0-10) % Platelet Estimate Normal (NORMAL) Large Platelets Present Hypochromasia (manual) Moderate Poikilocytosis (manual Anisocytosis (manual) Microcytosis (manual) Slight Tear Drop Cells Slight Franco Cells Retic Count 0.1 L (0.5-1.5) % Puncture Site pCO2 (35-45) mm/Hg pO2 (80-100) mm/Hg HCO3 (21-28) mmol/L ABG pH (7.35-7.45) ABG Total CO2 (22-28) mmol/L ABG O2 Saturation (95-98) % ABG Base Excess (-2.0-3.0) mmol/L Stephen Test ABG Potassium (3.6-5.2) mmol/L A-a O2 Difference mm/Hg Respiratory Index Glucose (65-105) mg/dl Lactate (0.7-2.1) mmol/L Vent Mode Mechanical Rate FiO2 % Tidal Volume PEEP Sodium 128 L (132-148) mmol/L Potassium 3.0 L (3.6-5.2) mmol/L Chloride 96 L (98-107) mmol/L Carbon Dioxide 22 (22-30) mmol/L Anion Gap 13 (10-20) BUN 7 (7-17) mg/dL Creatinine 0.3 L (0.7-1.2) mg/dL Est GFR ( Amer) > 60 Est GFR (Non-Af Amer) > 60 POC Glucose (mg/dL) 143 H (65-110) mg/dL Random Glucose 80 (65-105) mg/dL Calcium 7.6 L (8.6-10.4) mg/dl Phosphorus 2.4 L (2.5-4.5) mg/dL Magnesium 1.6 (1.6-2.3) mg/dL Total Bilirubin 1.1 (0.2-1.3) mg/dL AST 44 H D (14-36) U/L ALT 30 (9-52) U/L Alkaline Phosphatase 90 (38-126) U/L Total Protein 4.7 L (6.3-8.3) g/dL Albumin 2.5 L (3.5-5.0) g/dL Globulin 2.3 (2.2-3.9) gm/dL Albumin/Globulin Ratio 1.1 (1.0-2.1) Arterial Blood Potassium (3.6-5.2) mmol/L Urine Color (YELLOW) Urine Clarity (Clear) Urine pH (5.0-8.0) Ur Specific [place] (1.003-1.030) Urine Protein (NEGATIVE) mg/dL Urine Glucose (UA) (Normal) mg/dL Urine Ketones (NEGATIVE) mg/dL Urine Blood (NEGATIVE) Urine Nitrate (NEGATIVE) Urine Bilirubin (NEGATIVE) Urine Urobilinogen (0.2-1.0) mg/dL Ur Leukocyte Esterase (Negative) Tyrell/uL Urine WBC (Auto) (0-5) /hpf Urine RBC (Auto) (0-3) /hpf Ur Squamous Epith Cells (0-5) /hpf Amorphous Sediment (<OCC) /ul Blood Type Antibody Screen 08/31/17 08/31/17 Range/Units 18:30 06:33 WBC (4.8-10.8) K/uL RBC (3.80-5.20) Mil/uL Hgb (11.0-16.0) g/dL Hct (34.0-47.0) % MCV (81.0-99.0) fL MCH (27.0-31.0) pg MCHC (33.0-37.0) g/dL RDW (11.5-14.5) % Plt Count (130-400) K/uL MPV (7.2-11.7) fL Neut % (Auto) (50.0-75.0) % Lymph % (Auto) (20.0-40.0) % Logan % (Auto) (0.0-10.0) % Eos % (Auto) (0.0-4.0) % Baso % (Auto) (0.0-2.0) % Neut # (1.8-7.0) K/uL Lymph # (1.0-4.3) K/uL Logan # (0.0-0.8) K/uL Eos # (0.0-0.7) K/uL Baso # (0.0-0.2) K/uL Neutrophils % (Manual) (50-75) % Band Neutrophils % (0-2) % Lymphocytes % (Manual) (20-40) % Monocytes % (Manual) (0-10) % Platelet Estimate (NORMAL) Large Platelets Hypochromasia (manual) Poikilocytosis (manual Anisocytosis (manual) Microcytosis (manual) Tear Drop Cells [place] Cells Retic Count (0.5-1.5) % Puncture Site pCO2 (35-45) mm/Hg pO2 (80-100) mm/Hg HCO3 (21-28) mmol/L ABG pH (7.35-7.45) ABG Total CO2 (22-28) mmol/L ABG O2 Saturation (95-98) % ABG Base Excess (-2.0-3.0) mmol/L Stephen Test ABG Potassium (3.6-5.2) mmol/L A-a O2 Difference mm/Hg Respiratory Index Glucose (65-105) mg/dl Lactate (0.7-2.1) mmol/L Vent Mode Mechanical Rate FiO2 % Tidal Volume PEEP Sodium (132-148) mmol/L Potassium (3.6-5.2) mmol/L Chloride (98-107) mmol/L Carbon Dioxide (22-30) mmol/L Anion Gap (10-20) BUN (7-17) mg/dL Creatinine (0.7-1.2) mg/dL Est GFR ( Amer) Est GFR (Non-Af Amer) POC Glucose (mg/dL) 99 (65-110) mg/dL Random Glucose (65-105) mg/dL Calcium (8.6-10.4) mg/dl Phosphorus (2.5-4.5) mg/dL Magnesium (1.6-2.3) mg/dL Total Bilirubin (0.2-1.3) mg/dL AST (14-36) U/L ALT (9-52) U/L Alkaline Phosphatase (38-126) U/L Total Protein (6.3-8.3) g/dL Albumin (3.5-5.0) g/dL Globulin (2.2-3.9) gm/dL Albumin/Globulin Ratio (1.0-2.1) Arterial Blood Potassium (3.6-5.2) mmol/L Urine Color (YELLOW) Urine Clarity (Clear) Urine pH (5.0-8.0) Ur Specific [place] (1.003-1.030) Urine Protein (NEGATIVE) mg/dL Urine Glucose (UA) (Normal) mg/dL Urine Ketones (NEGATIVE) mg/dL Urine Blood (NEGATIVE) Urine Nitrate (NEGATIVE) Urine Bilirubin (NEGATIVE) Urine Urobilinogen (0.2-1.0) mg/dL Ur Leukocyte Esterase (Negative) Tyrell/uL Urine WBC (Auto) (0-5) /hpf Urine RBC (Auto) (0-3) /hpf Ur Squamous Epith Cells (0-5) /hpf Amorphous Sediment (<OCC) /ul Blood Type O POSITIVE Antibody Screen Negative Laboratory Results - last 24 hr 08/31/17 08/31/17 08/31/17 06:33 18:30 19:14 WBC 9.2 RBC 1.86 L Hgb 5.9 L* Hct 17.7 L MCV 95.0 MCH 32.0 H MCHC 33.7 RDW 16.7 H Plt Count 132 MPV 8.2 Neut % (Auto) 93.1 H Lymph % (Auto) 4.6 L Logan % (Auto) 2.1 Eos % (Auto) 0.0 Baso % (Auto) 0.2 Neut # 8.6 H Lymph # 0.4 L Logan # 0.2 Eos # 0.0 Baso # 0.0 Neutrophils % (Manual) 87 H Band Neutrophils % 4 H Lymphocytes % (Manual) 6 L Monocytes % (Manual) 3 Platelet Estimate Normal Large Platelets Present Hypochromasia (manual) Moderate Poikilocytosis (manual Anisocytosis (manual) Microcytosis (manual) Slight Tear Drop Cells Slight [place] Cells Retic Count 0.1 L Puncture Site pCO2 pO2 HCO3 ABG pH ABG Total CO2 ABG O2 Saturation ABG Base Excess Stephen Test ABG Potassium A-a O2 Difference Respiratory Index Glucose Lactate Vent Mode Mechanical Rate FiO2 Tidal Volume PEEP Sodium Potassium Chloride Carbon Dioxide Anion Gap BUN Creatinine Est GFR ( Amer) Est GFR (Non-Af Amer) POC Glucose (mg/dL) 99 Random Glucose Calcium Phosphorus Magnesium Total Bilirubin AST ALT Alkaline Phosphatase Total Protein Albumin Globulin Albumin/Globulin Ratio Arterial Blood Potassium Urine Color Urine Clarity Urine pH Ur Specific [place] Urine Protein Urine Glucose (UA) Urine Ketones Urine Blood Urine Nitrate Urine Bilirubin Urine Urobilinogen Ur Leukocyte Esterase Urine WBC (Auto) Urine RBC (Auto) Ur Squamous Epith Cells Amorphous Sediment Blood Type O POSITIVE Antibody Screen Negative 08/31/17 08/31/17 09/01/17 19:14 23:53 05:32 WBC RBC Hgb Hct MCV MCH MCHC RDW Plt Count MPV Neut % (Auto) Lymph % (Auto) Logan % (Auto) Eos % (Auto) Baso % (Auto) Neut # Lymph # Logan # Eos # Baso # Neutrophils % (Manual) Band Neutrophils % Lymphocytes % (Manual) Monocytes % (Manual) Platelet Estimate Large Platelets Hypochromasia (manual) Poikilocytosis (manual Anisocytosis (manual) Microcytosis (manual) Tear Drop Cells Franco Cells Retic Count Puncture Site L rad pCO2 31 L pO2 169 H HCO3 23.4 ABG pH 7.44 ABG Total CO2 22.1 ABG O2 Saturation 100.2 H ABG Base Excess -2.1 L Stephen Test Pos ABG Potassium 3.3 L A-a O2 Difference 77.0 Respiratory Index 0.5 Glucose 83 Lactate 0.7 Vent Mode Prvc Mechanical Rate 14 FiO2 40.0 Tidal Volume 450 PEEP 5 Sodium 128 L 135.0 Potassium 3.0 L Chloride 96 L 107.0 Carbon Dioxide 22 Anion Gap 13 BUN 7 Creatinine 0.3 L Est GFR ( Amer) > 60 Est GFR (Non-Af Amer) > 60 POC Glucose (mg/dL) 143 H Random Glucose 80 Calcium 7.6 L Phosphorus 2.4 L Magnesium 1.6 Total Bilirubin 1.1 AST 44 H D ALT 30 Alkaline Phosphatase 90 Total Protein 4.7 L Albumin 2.5 L Globulin 2.3 Albumin/Globulin Ratio 1.1 Arterial Blood Potassium 3.3 L Urine Color Urine Clarity Urine pH Ur Specific [place] Urine Protein Urine Glucose (UA) Urine Ketones Urine Blood Urine Nitrate Urine Bilirubin Urine Urobilinogen Ur Leukocyte Esterase Urine WBC (Auto) Urine RBC (Auto) Ur Squamous Epith Cells Amorphous Sediment Blood Type Antibody Screen 09/01/17 09/01/17 09/01/17 06:02 06:07 06:07 WBC 8.7 RBC 2.17 L Hgb 6.9 L Hct 20.4 L MCV 94.0 MCH 31.6 H MCHC 33.6 RDW 16.0 H Plt Count 119 L MPV 8.8 Neut % (Auto) 91.1 H Lymph % (Auto) 6.9 L Logan % (Auto) 1.8 Eos % (Auto) 0.1 Baso % (Auto) 0.1 Neut # 7.9 H Lymph # 0.6 L Logan # 0.2 Eos # 0.0 Baso # 0.0 Neutrophils % (Manual) 91 H Band Neutrophils % 2 Lymphocytes % (Manual) 5 L Monocytes % (Manual) 2 Platelet Estimate Slightly decreased L Large Platelets Hypochromasia (manual) Moderate Poikilocytosis (manual Slight Anisocytosis (manual) Slight Microcytosis (manual) Tear Drop Cells Slight [place] Cells Slight Retic Count Puncture Site pCO2 pO2 HCO3 ABG pH ABG Total CO2 ABG O2 Saturation ABG Base Excess Stephen Test ABG Potassium A-a O2 Difference Respiratory Index Glucose Lactate Vent Mode Mechanical Rate FiO2 Tidal Volume PEEP Sodium 132 Potassium 3.4 L Chloride 102 Carbon Dioxide 20 L Anion Gap 13 BUN 6 L Creatinine 0.3 L Est GFR ( Amer) > 60 Est GFR (Non-Af Amer) > 60 POC Glucose (mg/dL) 83 Random Glucose 71 Calcium 8.0 L Phosphorus 2.4 L Magnesium 1.4 L Total Bilirubin 2.2 H AST 39 H ALT 37 Alkaline Phosphatase 89 Total Protein 5.5 L Albumin 2.4 L Globulin 3.1 Albumin/Globulin Ratio 0.8 L Arterial Blood Potassium Urine Color Urine Clarity Urine pH Ur Specific [place] Urine Protein Urine Glucose (UA) Urine Ketones Urine Blood Urine Nitrate Urine Bilirubin Urine Urobilinogen Ur Leukocyte Esterase Urine WBC (Auto) Urine RBC (Auto) Ur Squamous Epith Cells Amorphous Sediment Blood Type Antibody Screen 09/01/17 09/01/17 10:30 11:49 WBC RBC Hgb Hct MCV MCH MCHC RDW Plt Count MPV Neut % (Auto) Lymph % (Auto) Logan % (Auto) Eos % (Auto) Baso % (Auto) Neut # Lymph # Logan # Eos # Baso # Neutrophils % (Manual) Band Neutrophils % Lymphocytes % (Manual) Monocytes % (Manual) Platelet Estimate Large Platelets Hypochromasia (manual) Poikilocytosis (manual Anisocytosis (manual) Microcytosis (manual) Tear Drop Cells Franco Cells Retic Count Puncture Site pCO2 pO2 HCO3 ABG pH ABG Total CO2 ABG O2 Saturation ABG Base Excess Stephen Test ABG Potassium A-a O2 Difference Respiratory Index Glucose Lactate Vent Mode Mechanical Rate FiO2 Tidal Volume PEEP Sodium Potassium Chloride Carbon Dioxide Anion Gap BUN Creatinine Est GFR ( Amer) Est GFR (Non-Af Amer) POC Glucose (mg/dL) 102 Random Glucose Calcium Phosphorus Magnesium Total Bilirubin AST ALT Alkaline Phosphatase Total Protein Albumin Globulin Albumin/Globulin Ratio Arterial Blood Potassium Urine Color Becki Urine Clarity Turbid Urine pH 5.0 Ur Specific [place] 1.026 Urine Protein 1+ H Urine Glucose (UA) Normal Urine Ketones 1+ H Urine Blood 2+ H Urine Nitrate Negative Urine Bilirubin Negative Urine Urobilinogen 4.0 H Ur Leukocyte Esterase 1+ H Urine WBC (Auto) 17 H Urine RBC (Auto) 108 H Ur Squamous Epith Cells 1 Amorphous Sediment Few H Blood Type Antibody Screen Fingerstick Blood Sugar Results: 102 Review of Systems - Review of Systems Systems not reviewed;Unavailable: Altered Mental Status Critical Care Progress Note - Ventilator Checklist Head of Bed 30 Degrees: Yes PUD Prophalyxis: Yes DVT Prophylaxis: Yes Assessment/Plan (1) Cardiac arrest Assessment and plan: 36yo F. PMHX ETOH abuse. patient had multiple drug intoxication (THC, ETOH, Benzos) that lead to cardiopulmonary arrest with subsequent anoxic brain injury Neuro: anoxic brain injury c/b status epilepticus, patient is still having seizures through propofol gtt and kerogerra, will add versed gtt. Pulm: acute respiratory failure secondary to cardiac arrest, on vent. CV: hemodynamically stable Hem: anemia, transfused 1 unit prbc, multifactorial Renal: oliguria, giving albumin with fluids. NS@100 Endo: no acute issues GI: NPO, tube feeds Jevity ID: no acute issues DVT proph - heparin sq GI proph - protonix cheema for strict I/O's during acute illness Code status - full code Prognosis is extremely poor. Critical Care Time spent 35 minutes Multi-disciplinary rounds were performed with house staff, nursing, speech therapy, respiratory therapy, pharmacy and nutrition with integrated input from the primary team/attending and other consulting services. The documented time is cumulative and includes review of patient data/exams/labs/chart review and examination of the patient on rounds and throughout the day; time is exclusive of any procedures or teaching time. 09/01/17 15:12 Current Visit: Yes Status: Acute
--- NOTE | 2017-09-01 23:23 | PN ---
DATE: 09/01/2017 SUBJECTIVE: The patient is seen and examined at bedside. The patient's mental status remains the same. Having continued seizure. Remains intubated, unresponsive. PHYSICAL EXAMINATION VITAL SIGNS: Blood pressure 108/64, pulse 121, respirations 22, on ventilation, FiO2 of 40, tidal volume 500, O2 saturation 100% on room air. Intake is 4948 mL and output 480 mL with positive balance of 4468 mL. HEENT: Pupils sluggishly reacting to light and no icterus. Positive pallor. NG tube and ET tube in the oral cavity. NECK: Supple. LUNGS: Bilateral vesicular breath sounds. No wheezing. No rhonchi. CARDIOVASCULAR SYSTEM: S1 and S2 present, regular. ABDOMEN: Soft. Bowel sounds present. CENTRAL NERVOUS SYSTEM: Unresponsive, intubated, having multiple jerky movements of the upper extremities. MEDICATIONS: Include artificial tears, heparin 5000 units subcu q. 12 hours, Keppra 1000 mg IV q. 12 hours, Versed drip at 5 mg/hour, Protonix 40 mg IV push daily, potassium chloride 20 mEq in 1 liter at 75 mL an hour, Diprivan drip, thiamine 100 mg IV daily. LABORATORY DATA: Labs from this morning, WBC 8.7, hemoglobin 6.9, hematocrit 20.4, platelets 119. ABG on 40% FiO2; ph 7.44, pCO2 31, pO2 169. Sodium 132, potassium 3.4, chloride 102, bicarb 20, BUN 6, creatinine 0.3, glucose 83, calcium 8.0, phosphorus 2.4, magnesium 1.4, total bilirubin 2.2, AST 39, ALT 37, alkaline phosphatase 89, total protein 5.5. UA, specific gravity 1.026, pH 5.0, protein 1+, blood 2+, rbc 108, wbc 17. Chest x-ray from this morning shows bilateral lower lobe opacities, left greater than right, findings may represent atelectasis and no developing infiltrates. ASSESSMENT: A young female with prior history of ethanal abuse, chronic back pain status post back surgeries, multiple admissions to the hospital, recent admission to the hospital as per records to [facility] in 12/2016, chronic anemia, status post gastrointestinal workup in the past, history of chronic pancreatitis, ethanol abuse, admitted for status post cardiac arrest, acute respiratory failure on ventilator, possible anoxic encephalopathy, alcohol intoxication, anemia, multiple electrolytes abnormalities including hyponatremia, hypokalemia, hypomagnesemia, hypophosphatemia, abnormal liver function test. PLAN: Monitor her neurologic status, continue with Keppra as added by Neurology. Neurology consult appreciated. The patient is on 40% FiO2, continue with vent support, keep saturation more than 90%. Potassium, phosphorus and magnesium is replaced. Renal consult appreciated. Monitor electrolytes closely. The patient received 1 unit of PRBC. Hematology consult appreciated. H and H is still low. We will monitor CBC. Continue with GI and DVT prophylaxis. Monitor urine output. The patient's condition is critical and prognosis is guarded. Call the patient's mother, Margo Young this morning, and explained the patient's critical condition. The patient's mother understands the patient's critical condition and she claims that the patient has been drinking for many years and drinks 1 pint of vodka everyday and drinks couple of beers everyday. The patient was recently admitted to [facility] about 2 to 3 months ago. Prior to that, the patient had back surgery which was unsuccessful for unknown back issues. So the patient was using walker, but during the last admission to our [facility], she became wheelchair bound and for the past 3 months, she has been in wheelchair because of the back issues. The patient's mother claims that Nixon is the patient's and he is the next of kin for the patient. Mother wants everything to be done so the patient at this time, but she does not want her to be in vegetative state. We will try to contact the patient's regarding DNR status. We will continue with supportive care and we will add further recommendation as her clinical course processes. Phoenix Caballero MD
[2017-09-02] MEDS: levETIRAcetam 1,000 MG in Sodium Chloride 0.9% 100 ML IVPB SCH ×2 (06:00→17:10)
[2017-09-02 06:01] LABS: HEMATOCRIT 21.1 % (35.0-45.0); HEMOGLOBIN 7.1 g/dL (11.7-15.5); RDW 33.5 % (11.0-15.0)
[2017-09-02 06:04] LABS: ABG ALLEN TEST POS; ABG MECHANICAL RATE 14; ARTERIAL BLOOD GAS MODE PRVC; ATERIAL BLOOD GAS PEEP 5; DRAW SITE RRADIAL
[2017-09-02] MEDS: Potassium & Sodium Phosphate NG SCH ×3 (06:05→17:11)
[2017-09-02 06:40] LABS: BASO % 0.3 % (0.0-2.0); EOS % 0.4 % (0.0-4.0); HEMATOCRIT 17.6 % (34.0-47.0); LYMPH # 0.9 K/uL (1.0-4.3); LYMPH % 10.9 % (20.0-40.0); MEAN CELL VOLUME 93.2 fL (81.0-99.0); MEAN CORPUSCULAR HGB CONC 34.4 g/dL (33.0-37.0); MEAN PLATELET VOLUME 9.2 fL (7.2-11.7); MONO # 0.3 K/uL (0.0-0.8); MONO % 3.2 % (0.0-10.0); RED CELL DISTRIBUTION WIDTH 16.3 % (11.5-14.5)
[2017-09-02 07:00] LABS: CHLORIDE 104 mmol/L (98-107); POTASSIUM 3.6 mmol/L (3.6-5.2); SODIUM 134 mmol/L (132-148)
[2017-09-02 07:02] LABS: AST/SGOT 67 U/L (14-36); BILIRUBIN,TOTAL 1.5 mg/dL (0.2-1.3); CARBON DIOXIDE 21 mmol/L (22-30); GFR AFRICAN-AMERICAN > 60
[2017-09-02 07:03] LABS: ALKALINE PHOSPHATASE 111 U/L (38-126); ALT/SGPT 43 U/L (9-52); BLOOD UREA NITROGEN 4 mg/dL (7-17); CALCIUM 8.4 mg/dl (8.6-10.4); GLUCOSE,RANDOM 104 mg/dL (65-105); MAGNESIUM 1.6 mg/dL (1.6-2.3); PHOSPHOROUS 2.7 mg/dL (2.5-4.5); TOTAL PROTEIN 5.8 g/dL (6.3-8.3)
[2017-09-02 09:03] LABS: CHLORIDE URINE 55 mmol/L (32-290)
--- NOTE | 2017-09-02 09:34 | RAD ---
HISTORY: intubation COMPARISON: Comparison chest 09/01/2017 FINDINGS: In situ ETT, tip of which lies 4.1 cm above julieth. NGT is present tip of which overlies left upper quadrant of the abdomen. Right IJ Tyler central venous line with tip in the RA. LUNGS: Mild bibasilar atelectasis right greater than left PLEURA: No significant pleural effusion identified, no pneumothorax apparent. CARDIOVASCULAR: Normal. OSSEOUS STRUCTURES: No significant abnormalities. VISUALIZED UPPER ABDOMEN: Normal. OTHER FINDINGS: None. IMPRESSION: Support lines and tubes as above. Mild bibasilar atelectasis right greater than left with
--- NOTE | 2017-09-02 10:57 | CP.PCM.PN ---
Subjective - Date & Time of Evaluation Date of Evaluation: 09/02/17 Time of Evaluation: 11:00 - Subjective Subjective: Progress note dictated #[id number] Objective - Vital Signs/Intake and Output Vital Signs (last 24 hours): Temp Pulse Resp BP Pulse Ox 98.6 F 115 H 15 100/73 100 09/02/17 08:00 09/02/17 10:01 09/02/17 10:01 09/02/17 10:01 09/02/17 10:01 Intake and Output: 09/02/17 09/02/17 06:59 18:59 Intake Total 1818.7 422.4 Output Total 400 175 Balance 1418.7 247.4 - Medications Medications: Current Medications Artificial Tears (Lacri-Lube) 1 gm OS Q6H PRN PRN Reason: Sedation Last Admin: 09/01/17 20:00 Dose: 1 gm Heparin Sodium (Porcine) (Heparin) 5,000 units SC Q12 EUSEBIO Last Admin: 09/02/17 10:46 Dose: Not Given Midazolam HCl 100 mg/ Sodium (Chloride) 100 mls @ 5 mls/hr IV .Q20H EUSEBIO; 5 MG/ HR PRN Reason: Protocol Last Admin: 09/01/17 23:45 Dose: 5 mg/hr, 5 mls/hr Propofol (Diprivan) 1,000 mg in 100 mls @ 0.381 mls/hr IV .Q24H PRN; Protocol; 1 MCG/KG/MIN PRN Reason: TITRATE PER MD ORDER Last Titration: 09/02/17 00:00 Dose: 15 mcg/kg/min, 5.715 mls/hr Levetiracetam 1,000 mg/ Sodium (Chloride) 110 mls @ 420 mls/hr IVPB Q12H EUSEBIO Last Admin: 09/02/17 06:00 Dose: 420 mls/hr Potassium Chloride 20 meq/ (Sodium Chloride) 1,010 mls @ 75 mls/hr IV .[id number] EUSEBIO Last Admin: 09/02/17 04:33 Dose: 75 mls/hr Pantoprazole Sodium (Protonix Inj) 40 mg IVP DAILY EUSEBIO Last Admin: 09/01/17 09:09 Dose: 40 mg Pneumococcal Polyvalent Vaccine (Pneumovax 23 Vaccine) 0.5 ml IM .ONCE ONE Stop: 09/03/17 11:50 Potassium Phos/Sodium Phos (Neutra-Phos) 1 pkt NG Q6 [facility] Last Admin: 09/02/17 06:05 Dose: 1 pkt Thiamine HCl (Vitamin B1 Inj) 100 mg IV DAILY [facility] Last Admin: 09/01/17 09:09 Dose: 100 mg - Labs Labs: 09/02/17 06:32 09/02/17 06:32 PT 14.4 SECONDS (9.7-12.2) H 08/30/17 19:30 INR 1.3 08/30/17 19:30 APTT 28 SECONDS (21-34) 08/30/17 19:30
[2017-09-02] MEDS: Thiamine 100 mg/ml Inj IV SCH (11:12)
[2017-09-02] MEDS: Propofol 10 mg/ml 1,000 MG/100 ML VIAL IV PRN (13:52)
--- NOTE | 2017-09-02 15:21 | CP.CCUPN ---
CCU Subjective - Physician Review Events Since Last Encounter (Free Text): 09/02/17 15:18 clinical seizures seemed to have slowed down. CCU Objective - Vital Signs / Intake & Output Vital Signs (Last 4 hours): Vital Signs Temp Pulse Resp BP Pulse Ox 09/02/17 14:42 98.5 F 116 H 14 108/77 09/02/17 14:17 98.6 F 115 H 14 102/71 09/02/17 14:08 115 H 14 102/71 100 09/02/17 14:00 117 H 16 100 09/02/17 13:55 98.6 F 120 H 17 118/61 09/02/17 13:53 121 H 16 118/61 100 09/02/17 13:38 117 H 14 99/70 L 100 09/02/17 13:24 117 H 20 109/82 100 09/02/17 13:07 113 H 14 102/68 100 09/02/17 13:00 112 H 14 100 09/02/17 12:52 112 H 14 96/64 L 100 09/02/17 12:48 98.6 F 112 H 16 96/64 L 09/02/17 12:37 114 H 14 97/64 L 09/02/17 12:27 98.6 F 114 H 14 97/64 L 09/02/17 12:23 116 H 17 101/72 100 09/02/17 12:18 98.6 F 117 H 16 101/72 09/02/17 12:07 114 H 14 95/65 L 09/02/17 12:03 98.6 F 112 H 14 95/65 L 09/02/17 12:00 98.6 F 118 H 17 100 09/02/17 11:53 114 H 15 98/72 L 100 09/02/17 11:48 98.6 F 113 H 18 98/72 L 09/02/17 11:23 113 H 14 92/63 L 100 Intake and Output (Last 8hrs): Intake & Output 09/02/17 09/02/17 09/02/17 06:59 14:59 22:59 Intake Total 1345.7 1552.8 0 Output Total 300 375 Balance 1045.7 1177.8 0 Weight 150 lb 8 oz 169 lb Intake: IV 202 98 Intake, IV Amount 783.7 964.8 Right Distal Port 600 600 Internal Jugular Right Medial Port 40 40 Internal Jugular Right Proximal Port 43.7 44.8 Internal Jugular Right Wrist 100 280 Oral 200 Tube Feeding 160 160 Blood Product 280 0 Apheresis Rbc Cp2d As3 Lr 280 1st Unit [id number] Apheresis Rbc Cp2d As3 Lr 0 1st Unit [id number] Other 50 Output: Urine 300 375 Urethral (Cheema) 300 375 Other: # Bowel Movements 1 - Physical Exam Head: Positive for: Atraumatic, Normocephalic Pupils: Positive for: Sluggish Extroacular Muscles: Negative for: EOMI Mouth: Positive for: Moist Mucous Membranes Respiratory/Chest: Positive for: Good Air Exchange, Other (intubated ) Cardiovascular: Positive for: Normal S1, S2, Tachycardic Abdomen: Positive for: Normal Bowel Sounds. Negative for: Distention Upper Extremity: Negative for: Edema Lower Extremity: Negative for: Edema Neurological: Negative for: GCS=15, Speech Normal Skin: Positive for: Normal Color Psychiatric: Negative for: Alert, Oriented x 3 - Medications Active Medications: Active Medications Generic Name Dose Route Start Last Admin Trade Name Freq PRN Reason Stop Dose Admin Artificial Tears 1 gm 08/31/17 12:00 09/01/17 20:00 Lacri-Lube OS 1 gm Q6H PRN Administration Sedation Heparin Sodium (Porcine) 5,000 units 08/30/17 22:00 09/02/17 10:46 Heparin SC Not Given Q12 EUSEBIO Midazolam HCl 100 mg/ Sodium 100 mls @ 5 mls/hr 08/31/17 08:29 09/01/17 23:45 Chloride IV 5 mg/hr .Q20H EUSEBIO 5 mls/hr Protocol Administration 5 MG/HR Propofol 1,000 mg in 100 mls @ 0.381 mls/hr 08/31/17 11:11 09/02/17 13:52 Diprivan IV 15 mcg/kg/min .Q24H PRN 5.715 mls/hr TITRATE PER MD ORDER Administration Protocol 1 MCG/KG/MIN Levetiracetam 1,000 mg/ Sodium 110 mls @ 420 mls/hr 09/01/17 06:00 09/02/17 06:00 Chloride IVPB 420 mls/hr Q12H EUSEBIO Administration Potassium Chloride 20 meq/ 1,010 mls @ 75 mls/hr 09/01/17 09:57 09/02/17 04: 33 Sodium Chloride IV 75 mls/hr .[id number] EUSEBIO Administration Pantoprazole Sodium 40 mg 08/31/17 10:00 09/02/17 11:12 Protonix Inj IVP 40 mg DAILY EUSEBIO Administration Pneumococcal Polyvalent Vaccine 0.5 ml 09/03/17 11:49 Pneumovax 23 Vaccine IM 09/03/17 11:50 .ONCE ONE Potassium Phos/Sodium Phos 1 pkt 09/01/17 10:30 09/02/17 11:12 Neutra-Phos NG 1 pkt Q6 EUSEBIO Administration Thiamine HCl 100 mg 08/30/17 22:15 09/02/17 11:12 Vitamin B1 Inj IV 100 mg DAILY EUSEBIO Administration - Patient Studies Lab Studies: Microbiology Studies 08/30/17 22:41 MRSA Culture (Admit) - Final Naris MRSA NOT DETECTED Lab Studies 09/02/17 09/02/17 09/02/17 Range/Units 12:09 06:32 06:32 WBC 8.0 (4.8-10.8) K/uL RBC 1.89 L (3.80-5.20) Mil/uL Hgb 6.0 L* (11.0-16.0) g/dL Hct 17.6 L (34.0-47.0) % MCV 93.2 (81.0-99.0) fL MCH 32.0 H (27.0-31.0) pg MCHC 34.4 (33.0-37.0) g/dL RDW 16.3 H (11.5-14.5) % Plt Count 99 L D (130-400) K/uL MPV 9.2 (7.2-11.7) fL Neut % (Auto) 85.2 H (50.0-75.0) % Lymph % (Auto) 10.9 L (20.0-40.0) % [place] % (Auto) 3.2 (0.0-10.0) % Eos % (Auto) 0.4 (0.0-4.0) % Baso % (Auto) 0.3 (0.0-2.0) % Neut # 6.8 (1.8-7.0) K/uL Lymph # 0.9 L (1.0-4.3) K/uL [place] # 0.3 (0.0-0.8) K/uL Eos # 0.0 (0.0-0.7) K/uL Baso # 0.0 (0.0-0.2) K/uL Differential Comment Hemoglobinopathy Red Blood Count (3.80-5.10) Mill/mcL Hemoglobinopathy Hct (35.0-45.0) % Hemoglobinopathy Hgb (11.7-15.5) g/dL Hemoglobinopathy MCV (80.0-100.0) fL Hemoglobinopathy MCH (27.0-33.0) pg Hemoglobinopathy RDW (11.0-15.0) % Puncture Site pCO2 (35-45) mm/Hg pO2 (80-100) mm/Hg HCO3 (21-28) mmol/L ABG pH (7.35-7.45) ABG Total CO2 (22-28) mmol/L ABG O2 Saturation (95-98) % ABG Base Excess (-2.0-3.0) mmol/L Stephen Test ABG Potassium (3.6-5.2) mmol/L A-a O2 Difference mm/Hg Respiratory Index Sodium 134 (132-148) mmol/l Chloride 104 (98-107) mmol/L Glucose (65-105) mg/dl Lactate (0.7-2.1) mmol/L Vent Mode Mechanical Rate FiO2 % Tidal Volume PEEP Potassium 3.6 (3.6-5.2) mmol/L Carbon Dioxide 21 L (22-30) mmol/L Anion Gap 13 (10-20) BUN 4 L (7-17) mg/dL Creatinine 0.3 L (0.7-1.2) mg/dL Est GFR ( Amer) > 60 Est GFR (Non-Af Amer) > 60 POC Glucose (mg/dL) 126 H (65-110) mg/dL Random Glucose 104 (65-105) mg/dL Calcium 8.4 L (8.6-10.4) mg/dl Phosphorus 2.7 (2.5-4.5) mg/dL Magnesium 1.6 (1.6-2.3) mg/dL Total Bilirubin 1.5 H (0.2-1.3) mg/dL AST 67 H D (14-36) U/L ALT 43 (9-52) U/L Alkaline Phosphatase 111 (38-126) U/L Total Protein 5.8 L (6.3-8.3) g/dL Albumin 2.9 L D (3.5-5.0) g/dL Globulin 2.9 (2.2-3.9) gm/dL Albumin/Globulin Ratio 1.0 (1.0-2.1) Arterial Blood Potassium (3.6-5.2) mmol/L Urine Chloride (32-290) mmol/L Blood Type Antibody Screen 09/02/17 09/02/17 09/01/17 Range/Units 05:50 05:25 23:55 WBC (4.8-10.8) K/uL RBC (3.80-5.20) Mil/uL Hgb (11.0-16.0) g/dL Hct (34.0-47.0) % MCV (81.0-99.0) fL MCH (27.0-31.0) pg MCHC (33.0-37.0) g/dL RDW (11.5-14.5) % Plt Count (130-400) K/uL MPV (7.2-11.7) fL Neut % (Auto) (50.0-75.0) % Lymph % (Auto) (20.0-40.0) % [place] % (Auto) (0.0-10.0) % Eos % (Auto) (0.0-4.0) % Baso % (Auto) (0.0-2.0) % Neut # (1.8-7.0) K/uL Lymph # (1.0-4.3) K/uL [place] # (0.0-0.8) K/uL Eos # (0.0-0.7) K/uL Baso # (0.0-0.2) K/uL Differential Comment Hemoglobinopathy Red Blood Count (3.80-5.10) Mill/mcL Hemoglobinopathy Hct (35.0-45.0) % Hemoglobinopathy Hgb (11.7-15.5) g/dL Hemoglobinopathy MCV (80.0-100.0) fL Hemoglobinopathy MCH (27.0-33.0) pg Hemoglobinopathy RDW (11.0-15.0) % Puncture Site Rradial pCO2 32 L (35-45) mm/Hg pO2 175 H (80-100) mm/Hg HCO3 23.2 (21-28) mmol/L ABG pH 7.43 (7.35-7.45) ABG Total CO2 22.2 (22-28) mmol/L ABG O2 Saturation 100.5 H (95-98) % ABG Base Excess -2.3 L (-2.0-3.0) mmol/L Stephen Test Pos ABG Potassium 3.0 L (3.6-5.2) mmol/L A-a O2 Difference 70.0 mm/Hg Respiratory Index 0.4 Sodium 141.0 (132-148) mmol/l Chloride 114.0 H (98-107) mmol/L Glucose 110 H (65-105) mg/dl Lactate 0.7 (0.7-2.1) mmol/L Vent Mode Prvc Mechanical Rate 14 FiO2 40.0 % Tidal Volume 450 PEEP 5 Potassium (3.6-5.2) mmol/L Carbon Dioxide (22-30) mmol/L Anion Gap (10-20) BUN (7-17) mg/dL Creatinine (0.7-1.2) mg/dL Est GFR ( Amer) Est GFR (Non-Af Amer) POC Glucose (mg/dL) 138 H 108 (65-110) mg/dL Random Glucose (65-105) mg/dL Calcium (8.6-10.4) mg/dl Phosphorus (2.5-4.5) mg/dL Magnesium (1.6-2.3) mg/dL Total Bilirubin (0.2-1.3) mg/dL AST (14-36) U/L ALT (9-52) U/L Alkaline Phosphatase (38-126) U/L Total Protein (6.3-8.3) g/dL Albumin (3.5-5.0) g/dL Globulin (2.2-3.9) gm/dL Albumin/Globulin Ratio (1.0-2.1) Arterial Blood Potassium 3.0 L (3.6-5.2) mmol/L Urine Chloride (32-290) mmol/L Blood Type Antibody Screen 09/01/17 08/31/17 08/31/17 Range/Units 17:27 08:59 08:08 WBC (4.8-10.8) K/uL RBC (3.80-5.20) Mil/uL Hgb (11.0-16.0) g/dL Hct (34.0-47.0) % MCV (81.0-99.0) fL MCH (27.0-31.0) pg MCHC (33.0-37.0) g/dL RDW (11.5-14.5) % Plt Count (130-400) K/uL MPV (7.2-11.7) fL Neut % (Auto) (50.0-75.0) % Lymph % (Auto) (20.0-40.0) % [place] % (Auto) (0.0-10.0) % Eos % (Auto) (0.0-4.0) % Baso % (Auto) (0.0-2.0) % Neut # (1.8-7.0) K/uL Lymph # (1.0-4.3) K/uL [place] # (0.0-0.8) K/uL Eos # (0.0-0.7) K/uL Baso # (0.0-0.2) K/uL Differential Comment Hemoglobinopathy Red Blood Count 2.21 L (3.80-5.10) Mill/mcL Hemoglobinopathy Hct 21.1 L (35.0-45.0) % Hemoglobinopathy Hgb 7.1 L (11.7-15.5) g/dL Hemoglobinopathy MCV 95.7 (80.0-100.0) fL Hemoglobinopathy MCH 32.0 (27.0-33.0) pg Hemoglobinopathy RDW 33.5 H (11.0-15.0) % Puncture Site pCO2 (35-45) mm/Hg pO2 (80-100) mm/Hg HCO3 (21-28) mmol/L ABG pH (7.35-7.45) ABG Total CO2 (22-28) mmol/L ABG O2 Saturation (95-98) % ABG Base Excess (-2.0-3.0) mmol/L Stephen Test ABG Potassium (3.6-5.2) mmol/L A-a O2 Difference mm/Hg Respiratory Index Sodium (132-148) mmol/l Chloride (98-107) mmol/L Glucose (65-105) mg/dl Lactate (0.7-2.1) mmol/L Vent Mode Mechanical Rate FiO2 % Tidal Volume PEEP Potassium (3.6-5.2) mmol/L Carbon Dioxide (22-30) mmol/L Anion Gap (10-20) BUN (7-17) mg/dL Creatinine (0.7-1.2) mg/dL Est GFR ( Amer) Est GFR (Non-Af Amer) POC Glucose (mg/dL) 94 (65-110) mg/dL Random Glucose (65-105) mg/dL Calcium (8.6-10.4) mg/dl Phosphorus (2.5-4.5) mg/dL Magnesium (1.6-2.3) mg/dL Total Bilirubin (0.2-1.3) mg/dL AST (14-36) U/L ALT (9-52) U/L Alkaline Phosphatase (38-126) U/L Total Protein (6.3-8.3) g/dL Albumin (3.5-5.0) g/dL Globulin (2.2-3.9) gm/dL Albumin/Globulin Ratio (1.0-2.1) Arterial Blood Potassium (3.6-5.2) mmol/L Urine Chloride 55 (32-290) mmol/L Blood Type Antibody Screen 08/31/17 Range/Units 06:33 WBC (4.8-10.8) K/uL RBC (3.80-5.20) Mil/uL Hgb (11.0-16.0) g/dL Hct (34.0-47.0) % MCV (81.0-99.0) fL MCH (27.0-31.0) pg MCHC (33.0-37.0) g/dL RDW (11.5-14.5) % Plt Count (130-400) K/uL MPV (7.2-11.7) fL Neut % (Auto) (50.0-75.0) % Lymph % (Auto) (20.0-40.0) % [place] % (Auto) (0.0-10.0) % Eos % (Auto) (0.0-4.0) % Baso % (Auto) (0.0-2.0) % Neut # (1.8-7.0) K/uL Lymph # (1.0-4.3) K/uL [place] # (0.0-0.8) K/uL Eos # (0.0-0.7) K/uL Baso # (0.0-0.2) K/uL Differential Comment Hemoglobinopathy Red Blood Count (3.80-5.10) Mill/mcL Hemoglobinopathy Hct (35.0-45.0) % Hemoglobinopathy Hgb (11.7-15.5) g/dL Hemoglobinopathy MCV (80.0-100.0) fL Hemoglobinopathy MCH (27.0-33.0) pg Hemoglobinopathy RDW (11.0-15.0) % Puncture Site pCO2 (35-45) mm/Hg pO2 (80-100) mm/Hg HCO3 (21-28) mmol/L ABG pH (7.35-7.45) ABG Total CO2 (22-28) mmol/L ABG O2 Saturation (95-98) % ABG Base Excess (-2.0-3.0) mmol/L Stephen Test ABG Potassium (3.6-5.2) mmol/L A-a O2 Difference mm/Hg Respiratory Index Sodium (132-148) mmol/l Chloride (98-107) mmol/L Glucose (65-105) mg/dl Lactate (0.7-2.1) mmol/L Vent Mode Mechanical Rate FiO2 % Tidal Volume PEEP Potassium (3.6-5.2) mmol/L Carbon Dioxide (22-30) mmol/L Anion Gap (10-20) BUN (7-17) mg/dL Creatinine (0.7-1.2) mg/dL Est GFR ( Amer) Est GFR (Non-Af Amer) POC Glucose (mg/dL) (65-110) mg/dL Random Glucose (65-105) mg/dL Calcium (8.6-10.4) mg/dl Phosphorus (2.5-4.5) mg/dL Magnesium (1.6-2.3) mg/dL Total Bilirubin (0.2-1.3) mg/dL AST (14-36) U/L ALT (9-52) U/L Alkaline Phosphatase (38-126) U/L Total Protein (6.3-8.3) g/dL Albumin (3.5-5.0) g/dL Globulin (2.2-3.9) gm/dL Albumin/Globulin Ratio (1.0-2.1) Arterial Blood Potassium (3.6-5.2) mmol/L Urine Chloride (32-290) mmol/L Blood Type O POSITIVE Antibody Screen Negative Laboratory Results - last 24 hr 08/31/17 08/31/17 08/31/17 06:33 08:08 08:59 WBC RBC Hgb Hct MCV MCH MCHC RDW Plt Count MPV Neut % (Auto) Lymph % (Auto) [place] % (Auto) Eos % (Auto) Baso % (Auto) Neut # Lymph # [place] # Eos # Baso # Differential Comment Hemoglobinopathy Red Blood Count 2.21 L Hemoglobinopathy Hct 21.1 L Hemoglobinopathy Hgb 7.1 L Hemoglobinopathy MCV 95.7 Hemoglobinopathy MCH 32.0 Hemoglobinopathy RDW 33.5 H Puncture Site pCO2 pO2 HCO3 ABG pH ABG Total CO2 ABG O2 Saturation ABG Base Excess Stephen Test ABG Potassium A-a O2 Difference Respiratory Index Sodium Chloride Glucose Lactate Vent Mode Mechanical Rate FiO2 Tidal Volume PEEP Potassium Carbon Dioxide Anion Gap BUN Creatinine Est GFR ( Amer) Est GFR (Non-Af Amer) POC Glucose (mg/dL) Random Glucose Calcium Phosphorus Magnesium Total Bilirubin AST ALT Alkaline Phosphatase Total Protein Albumin Globulin Albumin/Globulin Ratio Arterial Blood Potassium Urine Chloride 55 Blood Type O POSITIVE Antibody Screen Negative 09/01/17 09/01/17 09/02/17 17:27 23:55 05:25 WBC RBC Hgb Hct MCV MCH MCHC RDW Plt Count MPV Neut % (Auto) Lymph % (Auto) [place] % (Auto) Eos % (Auto) Baso % (Auto) Neut # Lymph # [place] # Eos # Baso # Differential Comment Hemoglobinopathy Red Blood Count Hemoglobinopathy Hct Hemoglobinopathy Hgb Hemoglobinopathy MCV Hemoglobinopathy MCH Hemoglobinopathy RDW Puncture Site pCO2 pO2 HCO3 ABG pH ABG Total CO2 ABG O2 Saturation ABG Base Excess Stephen Test ABG Potassium A-a O2 Difference Respiratory Index Sodium Chloride Glucose Lactate Vent Mode Mechanical Rate FiO2 Tidal Volume PEEP Potassium Carbon Dioxide Anion Gap BUN Creatinine Est GFR ( Amer) Est GFR (Non-Af Amer) POC Glucose (mg/dL) 94 108 138 H Random Glucose Calcium Phosphorus Magnesium Total Bilirubin AST ALT Alkaline Phosphatase Total Protein Albumin Globulin Albumin/Globulin Ratio Arterial Blood Potassium Urine Chloride Blood Type Antibody Screen 09/02/17 09/02/17 09/02/17 05:50 06:32 06:32 WBC 8.0 RBC 1.89 L Hgb 6.0 L* Hct 17.6 L MCV 93.2 MCH 32.0 H MCHC 34.4 RDW 16.3 H Plt Count 99 L D MPV 9.2 Neut % (Auto) 85.2 H Lymph % (Auto) 10.9 L [place] % (Auto) 3.2 Eos % (Auto) 0.4 Baso % (Auto) 0.3 Neut # 6.8 Lymph # 0.9 L [place] # 0.3 Eos # 0.0 Baso # 0.0 Differential Comment Hemoglobinopathy Red Blood Count Hemoglobinopathy Hct Hemoglobinopathy Hgb Hemoglobinopathy MCV Hemoglobinopathy MCH Hemoglobinopathy RDW Puncture Site Rradial pCO2 32 L pO2 175 H HCO3 23.2 ABG pH 7.43 ABG Total CO2 22.2 ABG O2 Saturation 100.5 H ABG Base Excess -2.3 L Stephen Test Pos ABG Potassium 3.0 L A-a O2 Difference 70.0 Respiratory Index 0.4 Sodium 141.0 134 Chloride 114.0 H 104 Glucose 110 H Lactate 0.7 Vent Mode Prvc Mechanical Rate 14 FiO2 40.0 Tidal Volume 450 PEEP 5 Potassium 3.6 Carbon Dioxide 21 L Anion Gap 13 BUN 4 L Creatinine 0.3 L Est GFR ( Amer) > 60 Est GFR (Non-Af Amer) > 60 POC Glucose (mg/dL) Random Glucose 104 Calcium 8.4 L Phosphorus 2.7 Magnesium 1.6 Total Bilirubin 1.5 H AST 67 H D ALT 43 Alkaline Phosphatase 111 Total Protein 5.8 L Albumin 2.9 L D Globulin 2.9 Albumin/Globulin Ratio 1.0 Arterial Blood Potassium 3.0 L Urine Chloride Blood Type Antibody Screen 09/02/17 12:09 WBC RBC Hgb Hct MCV MCH MCHC RDW Plt Count MPV Neut % (Auto) Lymph % (Auto) [place] % (Auto) Eos % (Auto) Baso % (Auto) Neut # Lymph # [place] # Eos # Baso # Differential Comment Hemoglobinopathy Red Blood Count Hemoglobinopathy Hct Hemoglobinopathy Hgb Hemoglobinopathy MCV Hemoglobinopathy MCH Hemoglobinopathy RDW Puncture Site pCO2 pO2 HCO3 ABG pH ABG Total CO2 ABG O2 Saturation ABG Base Excess Stephen Test ABG Potassium A-a O2 Difference Respiratory Index Sodium Chloride Glucose Lactate Vent Mode Mechanical Rate FiO2 Tidal Volume PEEP Potassium Carbon Dioxide Anion Gap BUN Creatinine Est GFR ( Amer) Est GFR (Non-Af Amer) POC Glucose (mg/dL) 126 H Random Glucose Calcium Phosphorus Magnesium Total Bilirubin AST ALT Alkaline Phosphatase Total Protein Albumin Globulin Albumin/Globulin Ratio Arterial Blood Potassium Urine Chloride Blood Type Antibody Screen Fingerstick Blood Sugar Results: 126 Review of Systems - Review of Systems Systems not reviewed;Unavailable: Altered Mental Status Critical Care Progress Note - Ventilator Checklist Head of Bed 30 Degrees: Yes PUD Prophalyxis: Yes DVT Prophylaxis: Yes Assessment/Plan (1) Cardiac arrest Assessment and plan: 36yo F. PMHX ETOH abuse. patient had multiple drug intoxication (THC, ETOH, Benzos) that lead to cardiopulmonary arrest with subsequent anoxic brain injury Neuro: anoxic brain injury c/b status epilepticus, patient is still having seizures through propofol gtt, versed gtt and keppra. Will need to repeat EEG, r/o subclinical seizures. Pulm: acute respiratory failure secondary to cardiac arrest, on vent. CV: hemodynamically stable Hem: anemia and thrombocytopenia, transfusing 2 unit prbc, multifactorial. Possible internal bleeding, but patient would not be a candidate for surgical intervention. Renal: oliguria, giving albumin with fluids. NS@100 Endo: no acute issues GI: NPO, tube feeds Jevity ID: no acute issues DVT proph - heparin sq GI proph - protonix cheema for strict I/O's during acute illness Code status - full code RIJ TLC (08/31) Prognosis is extremely poor. Spoke to family about withdrawing care, considering. Critical Care Time spent 35 minutes Multi-disciplinary rounds were performed with house staff, nursing, speech therapy, respiratory therapy, pharmacy and nutrition with integrated input from the primary team/attending and other consulting services. The documented time is cumulative and includes review of patient data/exams/labs/chart review and examination of the patient on rounds and throughout the day; time is exclusive of any procedures or teaching time. 09/01/17 15:12 Current Visit: Yes Status: Acute
[2017-09-02] MEDS: Midazolam 50 mg/10 ml 100 MG in Sodium Chloride 0.9% 80 ML IV SCH (20:30)
--- NOTE | 2017-09-02 23:57 | PN ---
DATE: 09/02/2017 SUBJECTIVE: The patient was seen and examined at bedside. The patient remains unconscious, intubated, on multiple antiseizure medications with slightly improved jerky movements of the upper extremities. PHYSICAL EXAMINATION: GENERAL: Young female, lying in bed. VITAL SIGNS: Blood pressure is 114/69, pulse 119, temperature 98.8 degrees Fahrenheit, respirations 20, O2 saturation 100% on 40% FiO2, tidal volume 500. Intake is 4197, output is 675. HEENT: Pupils sluggishly reacting to light, no icterus. Positive pallor. Oropharyngeal and gastric tube in oral cavity. NECK: Supple. LUNGS: Bilateral vesicular breath sounds. No wheezing. CARDIOVASCULAR SYSTEM: S1 and S2 present, regular, tachycardic. ABDOMEN: Soft. Bowel sounds present. CENTRAL NERVOUS SYSTEM: Sedated, unresponsive, not moving extremities to deep painful stimuli. Involuntary jerky movements, left involuntary eye opening. EXTREMITIES: No edema. MEDICATIONS: Include artificial tears, heparin 5000 units subcu q. 12 hours, Keppra 1 g IV q. 12 hours, Versed 5 mg/hour, Protonix 40 mg daily, potassium 20 mEq in 1 liter at 75 mL an hour, Neutra-Phos 1 pack via NG tube q. 6 hours, Diprivan drip, and thiamine 100 mg daily. LABORATORY DATA: Labs from this morning; WBC 8, hemoglobin 6.0, hematocrit 17.6, platelets 99. ABG on 40% FiO2; pH 7.43, pCO2 of 32, pO2 of 175, O2 saturation is 100. Sodium 134, potassium 3.6, chloride 104, bicarb 21, BUN 4, creatinine 0.3, glucose 138, calcium 8.4, phosphorus 2.7, magnesium 1.6, total bilirubin 1.5, AST 67, ALT 43, alkaline phosphatase 111, total protein 5.8, albumin 2.9. Chest x-ray, mild bibasilar atelectasis, right greater than left. ASSESSMENT AND PLAN: A young female with history of anemia, ethanol abuse, substance abuse, back surgeries, pancreatitis with pancreatic cyst; gastroenteritis, status post esophagogastroduodenoscopy and colonoscopy; history of anxiety, admitted after cardiac arrest with ventilator-dependent respiratory failure, possible anoxic encephalopathy, and electrolyte imbalance including hyponatremia, hypokalemia, hypophosphatemia, and hypomagnesemia; all electrolytes being corrected with supplementation. The patient remains intubated. We will keep saturations more than 90%. Neurologically, on multiple antiseizure medications with no improvement in her mental status. Monitor her mental status. The patient 2 units of packed red blood cells transfusion today. We will repeat labs in a.m. Discussed with critical care attending. Continue with gastrointestinal and deep venous thrombosis prophylaxis. Discussed with the patient's mother's cousin who is at bedside. All the family understands the patient's critical condition. Prognosis is very guarded. Palliative care consult requested. We will discuss with the patient's family regarding DNR status and terminal extubation. Unclear which family member will be taking decision for the patient at this time. We will request Lathe Winder. We will consider Ethics consult if needed. We will add further recommendation as her clinical course progresses. Phoenix Caballero MD
[2017-09-03] MEDS: Propofol 10 mg/ml 1,000 MG/100 ML VIAL IV PRN ×3 (03:53→23:15)
[2017-09-03 06:16] LABS: ABG ALLEN TEST POS; ABG MECHANICAL RATE 14; ARTERIAL BLOOD GAS MODE PRVC; ARTERIAL BLOOD HGB O2 SAT 95.1 % (95.0-98.0); ATERIAL BLOOD GAS PEEP 5; CARBOXYHEMOGLOBIN 2.4 % (0.5-1.5); DRAW SITE RRADIAL; HHB 1.4 % (0.0-5.0); METHEMOGLOBIN 1.1 % (0.0-3.0)
[2017-09-03] MEDS: levETIRAcetam 1,000 MG in Sodium Chloride 0.9% 100 ML IVPB SCH ×2 (06:25→17:27)
[2017-09-03] MEDS: Potassium & Sodium Phosphate NG SCH ×5 (06:26→23:11)
[2017-09-03 06:38] LABS: BASO % 0.5 % (0.0-2.0); EOS % 0.3 % (0.0-4.0); HEMATOCRIT 23.1 % (34.0-47.0); LYMPH # 1.5 K/uL (1.0-4.3); LYMPH % 17.9 % (20.0-40.0); MEAN CELL VOLUME 89.7 fL (81.0-99.0); MEAN CORPUSCULAR HEMOGLOBIN 31.2 pg (27.0-31.0); MEAN CORPUSCULAR HGB CONC 34.7 g/dL (33.0-37.0); MEAN PLATELET VOLUME 8.4 fL (7.2-11.7); MONO # 0.3 K/uL (0.0-0.8); MONO % 3.3 % (0.0-10.0); NRBC % 0.1 % (0.0-2.0); RED CELL DISTRIBUTION WIDTH 16.7 % (11.5-14.5); WHITE BLOOD COUNT 8.4 K/uL (4.8-10.8)
[2017-09-03 06:45] LABS: CHLORIDE 103 mmol/L (98-107)
[2017-09-03 06:46] LABS: POTASSIUM 3.2 mmol/L (3.6-5.2); SODIUM 136 mmol/L (132-148)
[2017-09-03 06:48] LABS: ALB/GLOB RATIO 0.9 (1.0-2.1); AST/SGOT 73 U/L (14-36); BILIRUBIN,TOTAL 3.3 mg/dL (0.2-1.3); CARBON DIOXIDE 22 mmol/L (22-30); GFR AFRICAN-AMERICAN > 60; TOTAL PROTEIN 5.9 g/dL (6.3-8.3)
[2017-09-03 06:49] LABS: ALKALINE PHOSPHATASE 111 U/L (38-126); ALT/SGPT 47 U/L (9-52); BLOOD UREA NITROGEN 3 mg/dL (7-17); CALCIUM 8.4 mg/dl (8.6-10.4); GLUCOSE,RANDOM 74 mg/dL (65-105); MAGNESIUM 1.2 mg/dL (1.6-2.3); PHOSPHOROUS 2.6 mg/dL (2.5-4.5)
[2017-09-03] MEDS ORDERED: Magnesium Sulfate 1 gm in D5W 1 GM/100 ML BAG IVPB ONE (07:26)
[2017-09-03] MEDS: White Petrolatum/Mineral Oil Ophth Oint(3.5 gm) OS PRN ×2 (08:00→14:06)
--- NOTE | 2017-09-03 08:40 | CON ---
DATE: ATTENDING PHYSICIAN: Phoenix Caballero MD NEUROLOGICAL PROBLEM: Unresponsiveness with recurrent rhythmic jerky movements. HISTORY OF PRESENT ILLNESS: Ms. Essence Flores is a 36-year-old female who was brought into [facility] with a history of her found her unresponsive in her bathroom, the timeframe of which is not clear at all. Following this, the patient's immediately called 911. The patient was found to be in asystole and started ACLS and she regained pulse at the scene. Upon arrival to the Emergency Room, patient was hypotensive and tachycardic. Patient did have workup including a CAT scan. Patient was found to be in asystole and unresponsive. Patient was electively intubated. Patient started to have rhythmic jerky movements noted ever since. Patient was on hypothermia protocol. PAST MEDICAL HISTORY: She is a tobacco user as well as drinks one pint of vodka at least 4-5 drinks per day. The patient also has substance abuse. Urine showed cannabinoids. REVIEW OF SYSTEMS: Reviewed from Neuro. Patient does have continuous jerky movements. MEDICATIONS: Diprivan, ReoPro, heparin, artificial tears, levetiracetam. PHYSICAL EXAMINATION: VITAL SIGNS: Blood pressure 107/72, mean arterial pressure of 83, respiratory rate 18, temperature under hypothermia treatment. Pulse rate 89. GENERAL: Patient is unarousable. Patient is sedated with propofol drip. Rhythmic closing of the eye movement as well as body jerky movement manifesting as an adduction of both arms and legs noted. This jerk at least 1 per second. Pupils nonreactive to light. No corneal reflex. No oculocephalic noted. The patient is not responding to painful stimuli. Deep tendon reflexes are absent. Plantars are mute. Workup, CT of the head reported as no acute pathology. BLOOD WORKUP: WBC 11.6, hemoglobin 7.7, hematocrit 23.1, platelet 156. ABG: PH is 7.5, PCO2 is 26, PO2 is 181, bicarbonate 21 with saturation of 100%. Sodium 127, potassium 3.7, chloride 94, bicarbonate 25, BUN 8, creatinine 0.3, GFR more than 60, glucose 139, lactic acid on admission of 5.5. Calcium 7.8, corrected to 8. Phosphorus 1.8, magnesium 1.8. Urine toxicology shows cannabinoids positive. Urine osmolality 495. Serum cortisol 38.8. CONCLUSION: Upon reviewing her history and neurological examination, Ms. Essence Flores has been presenting with the followin. 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 RECOMMENDATIONS: 1. Continue the hypothermia protocol. 2. Electroencephalogram was reviewed by me, showed spike and wave activities 1/Hz noted throughout the recording. 3. Continue propofol with a titration, and Keppra dose was increased to 1000 mg twice a day. 4. Repeat CT of the head tomorrow morning. This is my initial evaluation. Patient does not show any physiological response with status epilepticus. Overall prognosis is very poor. Continue the supportive care at present. Appropriate antibiotic as per the recommendation, and anemia should be corrected as per Hematology recommendation. Emory Pugh MD MTDD
--- NOTE | 2017-09-03 09:13 | RAD ---
HISTORY: intubation COMPARISON: 09/02/2017 FINDINGS: LUNGS: No definite infiltrate. Examination limited due to oblique positioning. PLEURA: Small left pleural effusion. No evidence of right pleural effusion. No pneumothorax. CARDIOVASCULAR: Normal heart size. No congestive change. ET tube, NG tube and right IJ central venous catheter are all unchanged. OSSEOUS STRUCTURES: No significant abnormalities. VISUALIZED UPPER ABDOMEN: Normal. OTHER FINDINGS: None. IMPRESSION: Small left pleural effusion. Limited examination. Lines and tubes unchanged.
--- NOTE | 2017-09-03 09:17 | PN ---
DATE: 09/03/2017 NEUROLOGICAL PROBLEM: Status post anoxic encephalopathy with status epilepticus. PHYSICAL EXAMINATION: VITAL SIGNS: Blood pressure 100/67, mean arterial pressure of 75, respiratory rate 16, temperature afebrile. NEUROLOGIC: The patient again comatose. Eyes are partially opened with rhythmic blinking. Pupils are reactive to light. No corneal reflex. No oculocephalic. No gag on manipulating the endotracheal tube. Flaccid quadriplegia. Areflexic. Plantars are mute. LABORATORY DATA: Blood workup: WBC 8.4, hemoglobin 8.2, hematocrit 23.1, platelet 103. Sodium 136, potassium 3.2, chloride 103, bicarbonate 22, BUN 3, creatinine 0.4, GFR more than 60, magnesium 1.2, AST 73, ALT is 47. MEDICATIONS: The patient has been getting propofol drip, levetiracetam, with prophylactic B1 vitamin supplement with H2 blockers as proton pump inhibitors. ASSESSMENT AND PLAN: This is more than 72 hours. On neurological examination, the patient does not show any positive prognostic physiological reflexes that are noted. Regarding the condition, the patient reached irreversible insult to the brain. The patient's seizures are not controlled with the current medication. Overall prognosis is grave at present. 1. The patient is requested to have a CT of the head to assess the anoxic insult. 2. Electroencephalogram to assess these electrophysiological seizures. 3. Cerebral perfusion studies by Nuclear Medicine. Condition has been discussed with the registered nurse. Family will be deciding terminal extubation today because of her poor prognosis. Emory Pugh MD
[2017-09-03] MEDS: Thiamine 100 mg/ml Inj IV SCH (09:19)
--- NOTE | 2017-09-03 09:56 | EEG ---
DATE:08/31/2017 This is a 16-channel electroencephalogram of comatose adult. The study was performed at the bedside. The study shows spike and wave activities seen throughout the record consistent with status epilepticus. Some muscle artifact contaminated the frontal leads. The photic stimulation did not evoke driving response noted at 2 to 20 Hz. IMPRESSION: This is a globally abnormal electroencephalogram because of persistent spike and wave activities consistent with status epilepticus. Please correlate the findings with neurological and radiological studies. Emory Pugh MD
--- NOTE | 2017-09-03 10:42 | CP.PCM.PN ---
Subjective - Date & Time of Evaluation Date of Evaluation: 09/03/17 Time of Evaluation: 10:45 - Subjective Subjective: Progress note dictated # [id number] Objective - Vital Signs/Intake and Output Vital Signs (last 24 hours): Temp Pulse Resp BP Pulse Ox 99.9 F H 132 H 16 92/59 L 100 09/03/17 08:00 09/03/17 08:29 09/03/17 08:29 09/03/17 08:29 09/03/17 08:29 Intake and Output: 09/03/17 09/03/17 06:59 18:59 Intake Total 1469.2 397.8 Output Total 360 140 Balance 1109.2 257.8 - Medications Medications: Current Medications Albuterol/Ipratropium (Duoneb 3 Mg/0.5 Mg (3 Ml) Ud) 3 ml INH RQ8 EUSEBIO Artificial Tears (Lacri-Lube) 1 gm OS Q6H PRN PRN Reason: Sedation Last Admin: 09/03/17 08:00 Dose: 1 gm Heparin Sodium (Porcine) (Heparin) 5,000 units SC Q12 EUSEBIO Last Admin: 09/03/17 10:16 Dose: 5,000 units Midazolam HCl 100 mg/ Sodium (Chloride) 100 mls @ 5 mls/hr IV .Q20H EUSEBIO; 5 MG/ HR PRN Reason: Protocol Last Admin: 09/02/17 20:30 Dose: 5 mg/hr, 5 mls/hr Propofol (Diprivan) 1,000 mg in 100 mls @ 0.381 mls/hr IV .Q24H PRN; Protocol; 1 MCG/KG/MIN PRN Reason: TITRATE PER MD ORDER Last Admin: 09/03/17 03:53 Dose: 20 mcg/kg/min, 7.62 mls/hr Levetiracetam 1,000 mg/ Sodium (Chloride) 110 mls @ 420 mls/hr IVPB Q12H EUSEBIO Last Admin: 09/03/17 06:25 Dose: 420 mls/hr Potassium Chloride 20 meq/ (Sodium Chloride) 1,010 mls @ 75 mls/hr IV .[id number] EUSEBIO Last Admin: 09/03/17 08:38 Dose: 75 mls/hr Potassium Chloride (Potassium Chloride 20 Meq/100 Ml) 20 meq in 100 mls @ 50 mls/hr IVPB Q2H [facility] Stop: 09/03/17 12:59 Last Admin: 09/03/17 09:19 Dose: 50 mls/hr Pantoprazole Sodium (Protonix Inj) 40 mg IVP DAILY [facility] Last Admin: 09/03/17 09:19 Dose: 40 mg Potassium Phos/Sodium Phos (Neutra-Phos) 1 pkt NG Q6 [facility] Last Admin: 09/03/17 06:26 Dose: 1 pkt Thiamine HCl (Vitamin B1 Inj) 100 mg IV DAILY [facility] Last Admin: 09/03/17 09:19 Dose: 100 mg - Labs Labs: 09/03/17 06:28 09/03/17 06:28 PT 14.4 SECONDS (9.7-12.2) H 08/30/17 19:30 INR 1.3 08/30/17 19:30 APTT 28 SECONDS (21-34) 08/30/17 19:30
--- NOTE | 2017-09-03 11:30 | CP.CCUPN ---
CCU Subjective - Physician Review Subjective (Free Text): Patient seen and examined at bedside. Patient currently intubated. ROS unobtainable due to patient's current clinical status. CCU Objective - Vital Signs / Intake & Output Vital Signs (Last 4 hours): Vital Signs Temp Pulse Resp BP Pulse Ox 09/03/17 08:29 132 H 16 92/59 L 100 09/03/17 08:00 99.9 F H 09/03/17 07:22 140 H 23 101/70 100 Intake and Output (Last 8hrs): Intake & Output 09/02/17 09/03/17 09/03/17 22:59 06:59 14:59 Intake Total 1733.8 938.8 397.8 Output Total 240 240 140 Balance 1493.8 698.8 257.8 Intake: IV 122 78 Intake, IV Amount 1072.8 700.8 337.8 Right Distal Port 600 600 300 Internal Jugular Right Medial Port 40 40 15 Internal Jugular Right Proximal Port 52.8 60.8 22.8 Internal Jugular Right Wrist 380 Tube Feeding 160 160 60 Blood Product 279 Apheresis Rbc Cp2d As3 Lr 279 1st Unit [id number] Other 100 Output: Urine 240 240 140 Urethral (Andino) 240 240 140 - Physical Exam Head: Positive for: Atraumatic, Normocephalic Pupils: Positive for: Sluggish Extroacular Muscles: Negative for: EOMI Mouth: Positive for: Moist Mucous Membranes Respiratory/Chest: Positive for: Good Air Exchange, Other (intubated ) Cardiovascular: Positive for: Normal S1, S2, Tachycardic Abdomen: Positive for: Normal Bowel Sounds. Negative for: Distention Upper Extremity: Negative for: Edema Lower Extremity: Negative for: Edema Neurological: Negative for: GCS=15, Speech Normal Skin: Positive for: Normal Color Psychiatric: Negative for: Alert, Oriented x 3 - Medications Active Medications: Active Medications Generic Name Dose Route Start Last Admin Trade Name Freq PRN Reason Stop Dose Admin Albuterol/Ipratropium 3 ml 09/03/17 16:00 Duoneb 3 Mg/0.5 Mg (3 Ml) Ud INH RQ8 EUSEBIO Artificial Tears 1 gm 08/31/17 12:00 09/03/17 08:00 Lacri-Lube OS 1 gm Q6H PRN Administration Sedation Heparin Sodium (Porcine) 5,000 units 08/30/17 22:00 09/03/17 10:16 Heparin SC 5,000 units Q12 EUSEBIO Administration Midazolam HCl 100 mg/ Sodium 100 mls @ 5 mls/hr 08/31/17 08:29 09/02/17 20:30 Chloride IV 5 mg/hr .Q20H EUSEBIO 5 mls/hr Protocol Administration 5 MG/HR Propofol 1,000 mg in 100 mls @ 0.381 mls/hr 08/31/17 11:11 09/03/17 03:53 Diprivan IV 20 mcg/kg/min .Q24H PRN 7.62 mls/hr TITRATE PER MD ORDER Administration Protocol 1 MCG/KG/MIN Levetiracetam 1,000 mg/ Sodium 110 mls @ 420 mls/hr 09/01/17 06:00 09/03/17 06:25 Chloride IVPB 420 mls/hr Q12H EUSEBIO Administration Potassium Chloride 20 meq/ 1,010 mls @ 75 mls/hr 09/01/17 09:57 09/03/17 08: 38 Sodium Chloride IV 75 mls/hr .[id number] EUSEBIO Administration Potassium Chloride 20 meq in 100 mls @ 50 mls/hr 09/03/17 09:00 09/03/17 11: 10 Potassium Chloride 20 Meq/100 Ml IVPB 09/03/17 12:59 50 mls/hr Q2H EUSEBIO Administration Pantoprazole Sodium 40 mg 08/31/17 10:00 09/03/17 09:19 Protonix Inj IVP 40 mg DAILY EUSEBIO Administration Potassium Phos/Sodium Phos 1 pkt 09/01/17 10:30 09/03/17 11:11 Neutra-Phos NG 1 pkt Q6 EUSEBIO Administration Thiamine HCl 100 mg 08/30/17 22:15 09/03/17 09:19 Vitamin B1 Inj IV 100 mg DAILY EUSEBIO Administration - Patient Studies Lab Studies: Microbiology Studies 08/30/17 22:41 MRSA Culture (Admit) - Final Naris MRSA NOT DETECTED Lab Studies 09/03/17 09/03/17 09/03/17 Range/Units 06:42 06:28 06:28 WBC 8.4 (4.8-10.8) K/uL RBC 2.57 L (3.80-5.20) Mil/uL Hgb 8.0 L D (11.0-16.0) g/dL Hct 23.1 L (34.0-47.0) % MCV 89.7 D (81.0-99.0) fL MCH 31.2 H (27.0-31.0) pg MCHC 34.7 (33.0-37.0) g/dL RDW 16.7 H (11.5-14.5) % Plt Count 103 L (130-400) K/uL MPV 8.4 (7.2-11.7) fL Neut % (Auto) 78.0 H (50.0-75.0) % Lymph % (Auto) 17.9 L (20.0-40.0) % [place] % (Auto) 3.3 (0.0-10.0) % Eos % (Auto) 0.3 (0.0-4.0) % Baso % (Auto) 0.5 (0.0-2.0) % Neut # 6.5 (1.8-7.0) K/uL Lymph # 1.5 (1.0-4.3) K/uL [place] # 0.3 (0.0-0.8) K/uL Eos # 0.0 (0.0-0.7) K/uL Baso # 0.0 (0.0-0.2) K/uL Puncture Site pCO2 (35-45) mm/Hg pO2 (80-100) mm/Hg HCO3 (21-28) mmol/L ABG pH (7.35-7.45) ABG Total CO2 (22-28) mmol/L ABG O2 Saturation (95-98) % ABG Base Excess (-2.0-3.0) mmol/L ABG Hemoglobin (11.7-17.4) g/dL ABG Carboxyhemoglobin (0.5-1.5) % POC ABG HHb (Measured) (0.0-5.0) % ABG Methemoglobin (0.0-3.0) % Stephen Test A-a O2 Difference mm/Hg Respiratory Index Hgb O2 Saturation (95.0-98.0) % Vent Mode Mechanical Rate FiO2 % Tidal Volume PEEP Sodium 136 (132-148) mmol/L Potassium 3.2 L (3.6-5.2) mmol/L Chloride 103 (98-107) mmol/L Carbon Dioxide 22 (22-30) mmol/L Anion Gap 14 (10-20) BUN 3 L (7-17) mg/dL Creatinine 0.4 L (0.7-1.2) mg/dL Est GFR ( Amer) > 60 Est GFR (Non-Af Amer) > 60 POC Glucose (mg/dL) 93 (65-110) mg/dL Random Glucose 74 (65-105) mg/dL Calcium 8.4 L (8.6-10.4) mg/dl Phosphorus 2.6 (2.5-4.5) mg/dL Magnesium 1.2 L (1.6-2.3) mg/dL Total Bilirubin 3.3 H (0.2-1.3) mg/dL AST 73 H (14-36) U/L ALT 47 (9-52) U/L Alkaline Phosphatase 111 (38-126) U/L Total Protein 5.9 L (6.3-8.3) g/dL Albumin 2.7 L (3.5-5.0) g/dL Globulin 3.1 (2.2-3.9) gm/dL Albumin/Globulin Ratio 0.9 L (1.0-2.1) Blood Type Antibody Screen 09/03/17 09/02/17 08/31/17 Range/Units 06:10 12:09 06:33 WBC (4.8-10.8) K/uL RBC (3.80-5.20) Mil/uL Hgb (11.0-16.0) g/dL Hct (34.0-47.0) % MCV (81.0-99.0) fL MCH (27.0-31.0) pg MCHC (33.0-37.0) g/dL RDW (11.5-14.5) % Plt Count (130-400) K/uL MPV (7.2-11.7) fL Neut % (Auto) (50.0-75.0) % Lymph % (Auto) (20.0-40.0) % [place] % (Auto) (0.0-10.0) % Eos % (Auto) (0.0-4.0) % Baso % (Auto) (0.0-2.0) % Neut # (1.8-7.0) K/uL Lymph # (1.0-4.3) K/uL [place] # (0.0-0.8) K/uL Eos # (0.0-0.7) K/uL Baso # (0.0-0.2) K/uL Puncture Site Rradial pCO2 29 L (35-45) mm/Hg pO2 70 L (80-100) mm/Hg HCO3 23.8 (21-28) mmol/L ABG pH 7.48 H (7.35-7.45) ABG Total CO2 22.5 (22-28) mmol/L ABG O2 Saturation 98.5 H (95-98) % ABG Base Excess -1.5 (-2.0-3.0) mmol/L ABG Hemoglobin 8.0 L (11.7-17.4) g/dL ABG Carboxyhemoglobin 2.4 H (0.5-1.5) % POC ABG HHb (Measured) 1.4 (0.0-5.0) % ABG Methemoglobin 1.1 (0.0-3.0) % Stephen Test Pos A-a O2 Difference 179.0 mm/Hg Respiratory Index 2.6 Hgb O2 Saturation 95.1 (95.0-98.0) % Vent Mode Prvc Mechanical Rate 14 FiO2 40.0 % Tidal Volume 450 PEEP 5 Sodium (132-148) mmol/L Potassium (3.6-5.2) mmol/L Chloride (98-107) mmol/L Carbon Dioxide (22-30) mmol/L Anion Gap (10-20) BUN (7-17) mg/dL Creatinine (0.7-1.2) mg/dL Est GFR ( Amer) Est GFR (Non-Af Amer) POC Glucose (mg/dL) 126 H (65-110) mg/dL Random Glucose (65-105) mg/dL Calcium (8.6-10.4) mg/dl Phosphorus (2.5-4.5) mg/dL Magnesium (1.6-2.3) mg/dL Total Bilirubin (0.2-1.3) mg/dL AST (14-36) U/L ALT (9-52) U/L Alkaline Phosphatase (38-126) U/L Total Protein (6.3-8.3) g/dL Albumin (3.5-5.0) g/dL Globulin (2.2-3.9) gm/dL Albumin/Globulin Ratio (1.0-2.1) Blood Type O POSITIVE Antibody Screen Negative Laboratory Results - last 24 hr 08/31/17 09/02/17 09/03/17 06:33 12:09 06:10 WBC RBC Hgb Hct MCV MCH MCHC RDW Plt Count MPV Neut % (Auto) Lymph % (Auto) [place] % (Auto) Eos % (Auto) Baso % (Auto) Neut # Lymph # [place] # Eos # Baso # Puncture Site Rradial pCO2 29 L pO2 70 L HCO3 23.8 ABG pH 7.48 H ABG Total CO2 22.5 ABG O2 Saturation 98.5 H ABG Base Excess -1.5 ABG Hemoglobin 8.0 L ABG Carboxyhemoglobin 2.4 H POC ABG HHb (Measured) 1.4 ABG Methemoglobin 1.1 Stephen Test Pos A-a O2 Difference 179.0 Respiratory Index 2.6 Hgb O2 Saturation 95.1 Vent Mode Prvc Mechanical Rate 14 FiO2 40.0 Tidal Volume 450 PEEP 5 Sodium Potassium Chloride Carbon Dioxide Anion Gap BUN Creatinine Est GFR ( Amer) Est GFR (Non-Af Amer) POC Glucose (mg/dL) 126 H Random Glucose Calcium Phosphorus Magnesium Total Bilirubin AST ALT Alkaline Phosphatase Total Protein Albumin Globulin Albumin/Globulin Ratio Blood Type O POSITIVE Antibody Screen Negative 09/03/17 09/03/17 09/03/17 06:28 06:28 06:42 WBC 8.4 RBC 2.57 L Hgb 8.0 L D Hct 23.1 L MCV 89.7 D MCH 31.2 H MCHC 34.7 RDW 16.7 H Plt Count 103 L MPV 8.4 Neut % (Auto) 78.0 H Lymph % (Auto) 17.9 L [place] % (Auto) 3.3 Eos % (Auto) 0.3 Baso % (Auto) 0.5 Neut # 6.5 Lymph # 1.5 [place] # 0.3 Eos # 0.0 Baso # 0.0 Puncture Site pCO2 pO2 HCO3 ABG pH ABG Total CO2 ABG O2 Saturation ABG Base Excess ABG Hemoglobin ABG Carboxyhemoglobin POC ABG HHb (Measured) ABG Methemoglobin Stephen Test A-a O2 Difference Respiratory Index Hgb O2 Saturation Vent Mode Mechanical Rate FiO2 Tidal Volume PEEP Sodium 136 Potassium 3.2 L Chloride 103 Carbon Dioxide 22 Anion Gap 14 BUN 3 L Creatinine 0.4 L Est GFR ( Amer) > 60 Est GFR (Non-Af Amer) > 60 POC Glucose (mg/dL) 93 Random Glucose 74 Calcium 8.4 L Phosphorus 2.6 Magnesium 1.2 L Total Bilirubin 3.3 H AST 73 H ALT 47 Alkaline Phosphatase 111 Total Protein 5.9 L Albumin 2.7 L Globulin 3.1 Albumin/Globulin Ratio 0.9 L Blood Type Antibody Screen Fingerstick Blood Sugar Results: 93 Assessment/Plan - Assessment and Plan (Free Text) Assessment: Assessment: 36 year old female with past medical history of anemia and alcohol abuse, who was found unconscious by . EMS was called and patient was found to be in Asystole, ACLS protocol was initiated and 2 rounds of epinephrine and then ROSC. Patient was unconscious in the ED. Subsequently, patient was admitted to the ICU and hypothermia protocol was initiated. Plan: Neuro: Intubated, Acute seizures Neurologist, Dr. Pugh---> help appreciated * Management as per recommendation Medication/Management: * Keppra 500mg IV Q12H * Versed drip * Propofol 1,000mg in 100ml IV 1mcg/kg/min (Titratable) Cardio: Cardiopulmonary Arrest Management: * Intubated * Hypothermia protocol was initiated Pulm: Respiratory distress secondary to cardiac arrest Management: * Intubated * f/u sputum culture GI: Diarrhea * f/u C. Dif Renal: Hyponatremia Nephrology, Dr. Ramos---> Help appreciated * Management as per recommendation * Potassium and Magnesium repleted Psych: Alcohol abuse disorder * Thiamine 100mg IV daily * Psychiatric consult once patient is clinically stable Prophylaxis measures: R IJ in place DVT: SCDs, Heparin 5,000units SC Q12H GI: Protonix 40mg IV daily NS @ 75 mls/hr
[2017-09-03] MEDS ORDERED: Pneumococcal 23-Valent Vaccine IM ONE (11:49)
[2017-09-03] MEDS ORDERED: Influenza Vaccine 60 mcg/0.5 mL SYR (4YR UP) IM ONE (11:49)
--- NOTE | 2017-09-03 14:49 | CT ---
PROCEDURE: CT HEAD WITHOUT CONTRAST. HISTORY: Anoxic encephalopathy COMPARISON: 08/30/2017 CT head TECHNIQUE: Axial computed tomography images were obtained through the head/brain without intravenous contrast. Radiation dose: Total exam DLP = 1056.74 mGy-cm. This CT exam was performed using one or more of the following dose reduction techniques: Automated exposure control, adjustment of the mA and/or kV according to patient size, and/or use of iterative reconstruction technique. FINDINGS: HEMORRHAGE: No intracranial hemorrhage. BRAIN: No mass effect or edema. No atrophy or chronic microvascular ischemic changes. VENTRICLES: Unremarkable. No hydrocephalus. CALVARIUM: Unremarkable. PARANASAL SINUSES: Stable chronic primarily ethmoid and sphenoid sinusitis. MASTOID AIR CELLS: Unremarkable as visualized. No inflammatory changes. OTHER FINDINGS: None. IMPRESSION: No acute intracranial abnormalities. No significant findings to account for the clinical presentation. No significant interval change compared to the prior examination(s).
--- NOTE | 2017-09-03 15:51 | CP.PCM.PN ---
Subjective - Date & Time of Evaluation Date of Evaluation: 09/03/17 Time of Evaluation: 15:51 - Subjective Subjective: renal follow up note Seen and examined VS reviewed Gen: intubated and sedated sclera: anicteric op: et tube cv: +S1+s2 lungs coarse mechanical bs abd soft ext trace edema neuro: sedated psych: sedated skin: no rash imp: Hyponatremia/ Hypokalemia / Etoh abuse/ VDRF / Anoxic brain injury / hypomagnesemia / hypophosphatemia plan: renal function is steady replace lytes per icu neuro on board for brain flow assessment phos better today, can continue neutraphos Objective - Vital Signs/Intake and Output Vital Signs (last 24 hours): Temp Pulse Resp BP Pulse Ox 100.9 F H 129 H 15 93/62 L 99 09/03/17 13:30 09/03/17 14:29 09/03/17 14:29 09/03/17 14:29 09/03/17 14:29 Intake and Output: 09/03/17 09/03/17 06:59 18:59 Intake Total 1469.2 1143.4 Output Total 360 415 Balance 1109.2 728.4 - Medications Medications: Current Medications Albuterol/Ipratropium (Duoneb 3 Mg/0.5 Mg (3 Ml) Ud) 3 ml INH RQ8 EUSEBIO Artificial Tears (Lacri-Lube) 1 gm OS Q6H PRN PRN Reason: Sedation Last Admin: 09/03/17 14:06 Dose: 1 gm Heparin Sodium (Porcine) (Heparin) 5,000 units SC Q12 EUSEBIO Last Admin: 09/03/17 10:16 Dose: 5,000 units Midazolam HCl 100 mg/ Sodium (Chloride) 100 mls @ 5 mls/hr IV .Q20H EUSEBIO; 5 MG/ HR PRN Reason: Protocol Last Admin: 09/02/17 20:30 Dose: 5 mg/hr, 5 mls/hr Propofol (Diprivan) 1,000 mg in 100 mls @ 0.381 mls/hr IV .Q24H PRN; Protocol; 1 MCG/KG/MIN PRN Reason: TITRATE PER MD ORDER Last Admin: 09/03/17 14:10 Dose: 20 mcg/kg/min, 7.62 mls/hr Levetiracetam 1,000 mg/ Sodium (Chloride) 110 mls @ 420 mls/hr IVPB Q12H COUNTS INCLUDE 234 BEDS AT THE [facility] Last Admin: 09/03/17 06:25 Dose: 420 mls/hr Potassium Chloride 20 meq/ (Sodium Chloride) 1,010 mls @ 75 mls/hr IV .[id number] COUNTS INCLUDE 234 BEDS AT THE [facility] Last Admin: 09/03/17 08:38 Dose: 75 mls/hr Pantoprazole Sodium (Protonix Inj) 40 mg IVP DAILY COUNTS INCLUDE 234 BEDS AT THE [facility] Last Admin: 09/03/17 09:19 Dose: 40 mg Potassium Phos/Sodium Phos (Neutra-Phos) 1 pkt NG Q6 COUNTS INCLUDE 234 BEDS AT THE [facility] Last Admin: 09/03/17 11:11 Dose: 1 pkt Thiamine HCl (Vitamin B1 Inj) 100 mg IV DAILY COUNTS INCLUDE 234 BEDS AT THE [facility] Last Admin: 09/03/17 09:19 Dose: 100 mg - Labs Labs: 09/03/17 06:28 09/03/17 06:28 PT 14.4 SECONDS (9.7-12.2) H 08/30/17 19:30 INR 1.3 08/30/17 19:30 APTT 28 SECONDS (21-34) 08/30/17 19:30
--- NOTE | 2017-09-03 17:57 | NM ---
PROCEDURE: HISTORY: anoxic encephalopathy COMPARISON: September 03, 2017. CT brain TECHNIQUE: 22.3 mCi technetium 99 M DTPA administered intravenously. FINDINGS: There is faint flow above the tentorium, the study is technically limited. IMPRESSION: Findings on the current exam did not conform to nuclear medicine diagnosis of brain . There is faint cerebral flow, the study is considered technically suboptimal for reasons related to technique and poor visualization of carotid arteries.
[2017-09-03] MEDS: Albuterol-Ipratrop 3 mg / 0.5 (3 ml) UD INH SCH (17:59)
[2017-09-03] MEDS: Midazolam 50 mg/10 ml 100 MG in Sodium Chloride 0.9% 80 ML IV SCH (18:17)
[2017-09-04] MEDS: Albuterol-Ipratrop 3 mg / 0.5 (3 ml) UD INH SCH ×3 (00:11→16:02)
--- NOTE | 2017-09-04 00:47 | PN ---
DATE: 09/03/2017 SUBJECTIVE: The patient is seen and examined at bedside. The patient remains unconscious, intubated, having multiple seizure activity, and involuntary movements noted. PHYSICAL EXAMINATION: GENERAL: Young female, lying in bed, intubated and sedated, and unresponsive. VITAL SIGNS: Blood pressure is 91/64, pulse 131, respirations 15, on mechanical ventilation with tidal volume of 450, 40% FIO2. Intake is 4225 and output is 805. HEENT: Pupils sluggishly reacting to light. ET tube and gastric tube in the oral cavity. NECK: Supple. CARDIOVASCULAR: S1 and S2 present. Tachycardic. LUNGS: Bilateral vesicular breath sounds. No wheezing. No rhonchi. ABDOMEN: Soft. Bowel sounds are present. CENTRAL NERVOUS SYSTEM: Unconscious, sedated, having involuntary jerky movements. Not following any commands. EXTREMITIES: No edema. LABORATORY DATA: From this morning; WBC 8.4, hemoglobin 8.0, hematocrit 23.1, and platelets 103. ABG on 40% FIO2, pH of 7.48, pCO2 of 29, pO2 of 70, and O2 saturations 98.5. Sodium 136, potassium 3.2, chloride 103, bicarbonate 22, BUN 3, creatinine 0.4, glucose 93, calcium 8.4, phosphorus 2.6, magnesium 1.2, total bilirubin 3.3, AST 73, ALT 47, alkaline phosphatase 111, total protein 5.9, and albumin 2.7. C. diff negative. Sputum culture pending. MRSA negative. Blood flow study shows finding on the current exam did not confirm to nuclear medicine diagnosis of brain . There is faint cerebral flow. The study is considered technically suboptimal for reasons related to technique and poor visualization of the carotid arteries. EEG done. Repeat CT head done this morning shows no acute intracranial abnormalities. No significant findings to account for the clinical presentation. No significant interval change compared to the prior examination. ASSESSMENT AND PLAN: Young female with history of back problems, ethanol abuse, substance abuse, wheelchair bound as per family, admitted, status post cardiac arrest and cardiopulmonary resuscitation with multiple electrolyte abnormalities including hyponatremia, hypokalemia, hypomagnesemia, hypophosphatemia, ethanol intoxication, anemia, respiratory failure, and anoxic encephalopathy. The patient is still having seizures despite multiple antiseizure medications. No change in her mental status. We will follow up with Neurology regarding EEG results. The patient remains on ventilator. Blood pressure is on the lower side with sinus tachycardia. We will continue with other current supportive care. Potassium and magnesium are being supplemented. Repeat electrolytes. We will discuss with the patient's family regarding DNR status and terminal extubation. Discussed with RN, case management. Prognosis is poor. Her condition is guarded. Continue with supportive care until the family decides regarding DNR status. Phoenix Caballero MD
[2017-09-04 04:57] LABS: HEMOGLOBIN F <1.0 Percent (<2.0)
[2017-09-04] MEDS: Potassium & Sodium Phosphate NG SCH ×4 (05:00→23:40)
[2017-09-04] MEDS: levETIRAcetam 1,000 MG in Sodium Chloride 0.9% 100 ML IVPB SCH ×2 (05:47→17:31)
[2017-09-04 06:22] LABS: BASO % 0.5 % (0.0-2.0); EOS % 0.5 % (0.0-4.0); LYMPH # 0.8 K/uL (1.0-4.3); LYMPH % 10.8 % (20.0-40.0); MEAN CELL VOLUME 90.2 fL (81.0-99.0); MEAN CORPUSCULAR HEMOGLOBIN 31.3 pg (27.0-31.0); MEAN CORPUSCULAR HGB CONC 34.7 g/dL (33.0-37.0); MEAN PLATELET VOLUME 7.8 fL (7.2-11.7); MONO # 0.5 K/uL (0.0-0.8); MONO % 6.3 % (0.0-10.0); RED CELL DISTRIBUTION WIDTH 16.6 % (11.5-14.5); WHITE BLOOD COUNT 7.8 K/uL (4.8-10.8)
[2017-09-04 06:34] LABS: CHLORIDE 102 mmol/L (98-107); SODIUM 132 mmol/L (132-148)
[2017-09-04 06:36] LABS: BILIRUBIN,TOTAL 2.6 mg/dL (0.2-1.3); CARBON DIOXIDE 21 mmol/L (22-30); GFR AFRICAN-AMERICAN > 60
[2017-09-04 06:37] LABS: ALB/GLOB RATIO 0.8 (1.0-2.1); ALKALINE PHOSPHATASE 104 U/L (38-126); ALT/SGPT 38 U/L (9-52); AST/SGOT 40 U/L (14-36); BLOOD UREA NITROGEN 5 mg/dL (7-17); CALCIUM 7.8 mg/dl (8.6-10.4); GLUCOSE,RANDOM 81 mg/dL (65-105); MAGNESIUM 1.2 mg/dL (1.6-2.3); PHOSPHOROUS 3.4 mg/dL (2.5-4.5); TOTAL PROTEIN 5.5 g/dL (6.3-8.3)
[2017-09-04] MEDS: Magnesium Sulfate 1 gm in D5W 1 GM/100 ML BAG IVPB SCH ×2 (08:35→09:05)
--- NOTE | 2017-09-04 09:32 | RAD ---
PROCEDURE: Chest x-ray single frontal view HISTORY: intubated COMPARISON: 09/03/2017 TECHNIQUE: Single frontal view of the chest FINDINGS: Lines and tubes in stable position. Persistent dense confluent consolidative changes the left mid to lower lung zone as well as the right base. Heart size within limits. IMPRESSION: No significant interval change.
[2017-09-04 09:35] LABS: ABG ALLEN TEST POS; ABG MECHANICAL RATE 14; ARTERIAL BLOOD GAS MODE PRVC; ATERIAL BLOOD GAS PEEP 5; DRAW SITE LR
[2017-09-04] MEDS: Propofol 10 mg/ml 1,000 MG/100 ML VIAL IV PRN ×2 (09:39→22:18)
[2017-09-04] MEDS: Thiamine 100 mg/ml Inj IV SCH (09:40)
[2017-09-04] MEDS ORDERED: Sodium Chloride 0.9% 500 ML IV ONE (09:57)
--- NOTE | 2017-09-04 11:21 | CP.PCM.PN ---
Subjective - Date & Time of Evaluation Date of Evaluation: 09/04/17 Time of Evaluation: 11:00 - Subjective Subjective: Progress note dictated #[id number] Objective - Vital Signs/Intake and Output Vital Signs (last 24 hours): Temp Pulse Resp BP Pulse Ox 97.4 F L 139 H 22 86/52 L 100 09/04/17 08:00 09/04/17 09:26 09/04/17 09:26 09/04/17 09:26 09/04/17 09:26 Intake and Output: 09/04/17 09/04/17 06:59 18:59 Intake Total 1416.2 315.2 Output Total 650 170 Balance 766.2 145.2 - Medications Medications: Current Medications Albuterol/Ipratropium (Duoneb 3 Mg/0.5 Mg (3 Ml) Ud) 3 ml INH RQ8 EUSEBIO Last Admin: 09/04/17 08:51 Dose: 3 ml Artificial Tears (Lacri-Lube) 1 gm OS Q6H PRN PRN Reason: Sedation Last Admin: 09/03/17 14:06 Dose: 1 gm Heparin Sodium (Porcine) (Heparin) 5,000 units SC Q12 EUSEBIO Last Admin: 09/04/17 09:39 Dose: 5,000 units Midazolam HCl 100 mg/ Sodium (Chloride) 100 mls @ 5 mls/hr IV .Q20H EUSEBIO; 5 MG/ HR PRN Reason: Protocol Last Admin: 09/03/17 18:17 Dose: 5 mg/hr, 5 mls/hr Propofol (Diprivan) 1,000 mg in 100 mls @ 0.381 mls/hr IV .Q24H PRN; Protocol; 1 MCG/KG/MIN PRN Reason: TITRATE PER MD ORDER Last Admin: 09/04/17 09:39 Dose: 20 mcg/kg/min, 7.62 mls/hr Levetiracetam 1,000 mg/ Sodium (Chloride) 110 mls @ 420 mls/hr IVPB Q12H EUSEBIO Last Admin: 09/04/17 05:47 Dose: 420 mls/hr Potassium Chloride 20 meq/ (Sodium Chloride) 1,010 mls @ 125 mls/hr IV .Q8H5M EUSEBIO Magnesium Sulfate/Dextrose (Magnesium Sulfate 1 Gm/100 Ml D5w) 1 gm in 100 mls @ 200 mls/hr IVPB ONCE ONE Stop: 09/04/17 11:47 Potassium Chloride (Potassium Chloride 10 Meq/100 Ml) 10 meq in 100 mls @ 100 mls/hr IVPB ONCE ONE Stop: 09/04/17 12:17 Pantoprazole Sodium (Protonix Inj) 40 mg IVP DAILY EUSEBIO Last Admin: 09/04/17 09:40 Dose: 40 mg Potassium Phos/Sodium Phos (Neutra-Phos) 1 pkt NG Q6 EUSEBIO Last Admin: 09/04/17 05:00 Dose: 1 pkt Thiamine HCl (Vitamin B1 Inj) 100 mg IV DAILY EUSEBIO Last Admin: 09/04/17 09:40 Dose: 100 mg - Labs Labs: 09/04/17 06:14 09/04/17 06:10 PT 14.4 SECONDS (9.7-12.2) H 08/30/17 19:30 INR 1.3 08/30/17 19:30 APTT 28 SECONDS (21-34) 08/30/17 19:30
[2017-09-04] MEDS ORDERED: Magnesium Sulfate 1 gm in D5W 1 GM/100 ML BAG IVPB ONE ×2 (11:30→18:02)
--- NOTE | 2017-09-04 11:46 | CP.PCM.CON ---
History of Present Illness - History of Present Illness History of Present Illness: Palliative consult Requested josette Francois MD Reason: Goals of care Patient is 36 yo female. S/P unwitnessed cardiac arrest. Per report, patient found in the bathroom on the floor. EMS was able to regain the pulse. Intubated on the field and brought to ED. The CT head was negative abnormal findings. The EEG was abnormal and the Flow study reported very faint brain blood flow. PMH: anemia, depression, Soc. Hx; has boyfriend, 4 children, the oldest Holland 19 yo, drinks [place] 2 drinks a day Fam. Hx: mother alive, father , reasons unknown Review of Systems - Review of Systems All systems: reviewed and no additional remarkable complaints except Review of Systems: ROS obtained from nursing. patient unresponsive to stimuli. Past Patient History - Infectious Disease Hx of Infectious Diseases: None - Past Medical History & Family History Past Medical History?: Yes - Past Social History Smoking Status: Never Smoked - CARDIAC Hx Cardiac Disorders: No Other/Comment: As per family member : cardiac history of heart going "Fast" - PULMONARY Hx Pneumonia: Yes Other/Comment: smoker - NEUROLOGICAL Hx Neurological Disorder: No - HEENT Hx HEENT Problems: No - RENAL Hx Chronic Kidney Disease: No - ENDOCRINE/METABOLIC Hx Endocrine Disorders: No - HEMATOLOGICAL/ONCOLOGICAL Hx Anemia: Yes - INTEGUMENTARY Hx Dermatological Problems: Yes (HAS MULTIPLE HEALED OPEN LESION TO UPPER ARM, DARKENED SKIN DISCOLOR LLE) Hx Eczema: Yes Other/Comment: H/O OF HAVING HEAD LICE - MUSCULOSKELETAL/RHEUMATOLOGICAL Hx Musculoskeletal Disorders: No Hx Falls: Yes Hx Unsteady Gait: Yes - GASTROINTESTINAL Hx Gastrointestinal Disorders: No (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) HX Swallowing Problems: Yes (SORE THROAT 9-6-14) - GENITOURINARY/GYNECOLOGICAL Hx Genitourinary Disorders: Yes (6 ABORTIONS,3 CHILDREN ,H/O OF C SECTIONS X3) Other/Comment: MENORRHAGIA - PSYCHIATRIC Hx Depression: Yes Hx Substance Use: No - SURGICAL HISTORY Hx Section: Yes - ANESTHESIA Hx Anesthesia: Yes Hx Anesthesia Reactions: No Hx Malignant Hyperthermia: No Meds Allergies/Adverse Reactions: Allergies Allergy/AdvReac Type Severity Reaction Status Date / Time PORK Allergy NAUSEA Verified 01/05/17 11:15 tomato Allergy NAUSEA Verified 01/05/17 11:17 wheat Allergy NAUSEA Verified 01/05/17 11:16 - Medications Medications: Current Medications Albuterol/Ipratropium (Duoneb 3 Mg/0.5 Mg (3 Ml) Ud) 3 ml INH RQ8 [facility] Last Admin: 09/04/17 08:51 Dose: 3 ml Artificial Tears (Lacri-Lube) 1 gm OS Q6H PRN PRN Reason: Sedation Last Admin: 09/03/17 14:06 Dose: 1 gm Heparin Sodium (Porcine) (Heparin) 5,000 units SC Q12 [facility] Last Admin: 09/04/17 09:39 Dose: 5,000 units Midazolam HCl 100 mg/ Sodium (Chloride) 100 mls @ 5 mls/hr IV .Q20H EUESBIO; 5 MG/ HR PRN Reason: Protocol Last Admin: 09/03/17 18:17 Dose: 5 mg/hr, 5 mls/hr Propofol (Diprivan) 1,000 mg in 100 mls @ 0.381 mls/hr IV .Q24H PRN; Protocol; 1 MCG/KG/MIN PRN Reason: TITRATE PER MD ORDER Last Admin: 09/04/17 09:39 Dose: 20 mcg/kg/min, 7.62 mls/hr Levetiracetam 1,000 mg/ Sodium (Chloride) 110 mls @ 420 mls/hr IVPB Q12H [facility] Last Admin: 09/04/17 05:47 Dose: 420 mls/hr Potassium Chloride 20 meq/ (Sodium Chloride) 1,010 mls @ 125 mls/hr IV .Q8H5M [facility] Magnesium Sulfate/Dextrose (Magnesium Sulfate 1 Gm/100 Ml D5w) 1 gm in 100 mls @ 200 mls/hr IVPB ONCE ONE Stop: 09/04/17 11:59 Potassium Chloride (Potassium Chloride 10 Meq/100 Ml) 10 meq in 100 mls @ 100 mls/hr IVPB ONCE ONE Stop: 09/04/17 12:17 Pantoprazole Sodium (Protonix Inj) 40 mg IVP DAILY [facility] Last Admin: 09/04/17 09:40 Dose: 40 mg Potassium Phos/Sodium Phos (Neutra-Phos) 1 pkt NG Q6 [facility] Last Admin: 09/04/17 05:00 Dose: 1 pkt Thiamine HCl (Vitamin B1 Inj) 100 mg IV DAILY [facility] Last Admin: 09/04/17 09:40 Dose: 100 mg Physical Exam - Constitutional Appears: In Acute Distress - Head Exam Head Exam: ATRAUMATIC, NORMAL INSPECTION, NORMOCEPHALIC - Eye Exam Eye Exam: Normal appearance Additional comments: sluggish response to light - ENT Exam Additional comments: ETT - Neck Exam Neck exam: Positive for: Normal Inspection - Respiratory Exam Additional comments: on MV support - Cardiovascular Exam Cardiovascular Exam: Tachycardia, Irregular Rhythm - GI/Abdominal Exam GI & Abdominal Exam: Hyperactive Bowel Sounds - Rectal Exam Rectal Exam: Deferred - Extremities Exam Extremities exam: Positive for: normal inspection - Back Exam Back exam: NORMAL INSPECTION - Neurological Exam Neurological exam: Motor Sensory Deficit - Psychiatric Exam Psychiatric exam: Flat Affect - Skin Skin Exam: Intact Results - Vital Signs Recent Vital Signs: Last Vital Signs Temp 97.4 F L 09/04/17 08:00 Pulse 139 H 09/04/17 09:26 Resp 22 09/04/17 09:26 BP 86/52 L 09/04/17 09:26 Pulse Ox 100 09/04/17 09:26 - Labs Result Diagrams: 09/04/17 06:14 09/04/17 06:10 Labs: Laboratory Results - last 24 hr 08/31/17 09/03/17 09/03/17 08:08 09:58 11:34 WBC RBC Hgb Hct MCV MCH MCHC RDW Plt Count MPV Neut % (Auto) Lymph % (Auto) [place] % (Auto) Eos % (Auto) Baso % (Auto) Neut # Lymph # [place] # Eos # Baso # Differential Comment Hemoglobin A 96.7 Hemoglobin A2 2.3 Hemoglobin C 0.0 Hemoglobin F () <1.0 Hemoglobin S 0.0 Variant Hemoglobin 0.0 Hemoglobinopathy Interp See note Puncture Site pCO2 pO2 HCO3 ABG pH ABG Total CO2 ABG O2 Saturation ABG Base Excess Stephen Test A-a O2 Difference Respiratory Index Vent Mode Mechanical Rate FiO2 Tidal Volume PEEP Sodium Potassium Chloride Carbon Dioxide Anion Gap BUN Creatinine Est GFR ( Amer) Est GFR (Non-Af Amer) POC Glucose (mg/dL) 113 H Random Glucose Calcium Phosphorus Magnesium Total Bilirubin AST ALT Alkaline Phosphatase Total Protein Albumin Globulin Albumin/Globulin Ratio C. difficile Ag & Toxin Negative 09/03/17 09/04/17 09/04/17 17:47 00:08 05:26 WBC RBC Hgb Hct MCV MCH MCHC RDW Plt Count MPV Neut % (Auto) Lymph % (Auto) Overton % (Auto) Eos % (Auto) Baso % (Auto) Neut # Lymph # [place]ton # Eos # Baso # Differential Comment Hemoglobin A Hemoglobin A2 Hemoglobin C Hemoglobin F () Hemoglobin S Variant Hemoglobin Hemoglobinopathy Interp Puncture Site pCO2 pO2 HCO3 ABG pH ABG Total CO2 ABG O2 Saturation ABG Base Excess Stephen Test A-a O2 Difference Respiratory Index Vent Mode Mechanical Rate FiO2 Tidal Volume PEEP Sodium Potassium Chloride Carbon Dioxide Anion Gap BUN Creatinine Est GFR ( Amer) Est GFR (Non-Af Amer) POC Glucose (mg/dL) 95 106 98 Random Glucose Calcium Phosphorus Magnesium Total Bilirubin AST ALT Alkaline Phosphatase Total Protein Albumin Globulin Albumin/Globulin Ratio C. difficile Ag & Toxin 09/04/17 09/04/17 09/04/17 06:10 06:14 06:25 WBC 7.8 RBC 2.44 L Hgb 7.6 L Hct 22.0 L MCV 90.2 MCH 31.3 H MCHC 34.7 RDW 16.6 H Plt Count 119 L MPV 7.8 Neut % (Auto) 81.9 H Lymph % (Auto) 10.8 L Overton % (Auto) 6.3 Eos % (Auto) 0.5 Baso % (Auto) 0.5 Neut # 6.4 Lymph # 0.8 L [place]ton # 0.5 Eos # 0.0 Baso # 0.0 Differential Comment Hemoglobin A Hemoglobin A2 Hemoglobin C Hemoglobin F () Hemoglobin S Variant Hemoglobin Hemoglobinopathy Interp Puncture Site Lr pCO2 29 L pO2 110 H HCO3 25.7 ABG pH 7.51 H ABG Total CO2 24.0 ABG O2 Saturation 99.8 H ABG Base Excess 1.0 Stephen Test Pos A-a O2 Difference 139.0 Respiratory Index 1.3 Vent Mode Prvc Mechanical Rate 14 FiO2 40.0 Tidal Volume 450 PEEP 5 Sodium 132 Potassium 3.0 L Chloride 102 Carbon Dioxide 21 L Anion Gap 12 BUN 5 L Creatinine 0.3 L Est GFR ( Amer) > 60 Est GFR (Non-Af Amer) > 60 POC Glucose (mg/dL) Random Glucose 81 Calcium 7.8 L Phosphorus 3.4 Magnesium 1.2 L Total Bilirubin 2.6 H AST 40 H D ALT 38 Alkaline Phosphatase 104 Total Protein 5.5 L Albumin 2.4 L Globulin 3.1 Albumin/Globulin Ratio 0.8 L C. difficile Ag & Toxin 09/04/17 11:29 WBC RBC Hgb Hct MCV MCH MCHC RDW Plt Count MPV Neut % (Auto) Lymph % (Auto) Over[place] % (Auto) Eos % (Auto) Baso % (Auto) Neut # Lymph # [place]ton # Eos # Baso # Differential Comment Hemoglobin A Hemoglobin A2 Hemoglobin C Hemoglobin F () Hemoglobin S Variant Hemoglobin Hemoglobinopathy Interp Puncture Site pCO2 pO2 HCO3 ABG pH ABG Total CO2 ABG O2 Saturation ABG Base Excess Stephen Test A-a O2 Difference Respiratory Index Vent Mode Mechanical Rate FiO2 Tidal Volume PEEP Sodium Potassium Chloride Carbon Dioxide Anion Gap BUN Creatinine Est GFR ( Amer) Est GFR (Non-Af Amer) POC Glucose (mg/dL) 130 H Random Glucose Calcium Phosphorus Magnesium Total Bilirubin AST ALT Alkaline Phosphatase Total Protein Albumin Globulin Albumin/Globulin Ratio C. difficile Ag & Toxin Assessment & Plan - Assessment and Plan (Free Text) Assessment: Palliative consult Code status Unknown, there is Advance Directive/ Living Will on chart, PPS 0% I reviewed medical records, all diagnostic studies, examined patient in the bed , diacussed her condition in rounds and spoke to the daughter over the phone. Patient is unresponsive to stimuli. No Gag reflex. Cery sluggish pupil response to light. patient fully depends on life support. Diprivan Iv and Kepra Iv on board. Hb 7.8, ICu team aware, blood transfusion pending. BP 86/52, HR 139, urine output 20 -30 cc/hr. I spoke to Holland over the phone. She stated she was the oldest child and that her grandmother was sick at home. I suggested we meet for goals of care discussion, what she accepted. family meeting at 12 pm today. Impression * This is critically ill patient with anoxic brain injury, unable to support vital functions * Patient's wishes for the end of life care are not known * The closest family member is patient's 19 yo daughter Holland * Patient's mother is home sick Suggestion * Family meeting today at 12 pn * Will discuss weaning off the life support and promotion of natural
--- NOTE | 2017-09-04 12:18 | CARD ---
APPROVED REPORT EXAM: Two-dimensional and M-mode echocardiogram with Doppler and color Doppler. Other Information Quality : TDSRhythm : INDICATION Chest Pain s/p Cardiac Arrest 2D DIMENSIONS IVSd1.0 (0.7-1.1cm)LVDd3.7 (3.9-5.9cm) PWd1.1 (0.7-1.1cm)LVDs2.5 (2.5-4.0cm) FS (%) 33.0 %LVEF (%)62.3 (>50%) M-Mode DIMENSIONS Left Atrium (MM)2.84 (2.5-4.0cm)Aortic Root2.82 (2.2-3.7cm) Aortic Cusp Exc.2.18 (1.5-2.0cm) Mitral Valve MV E Velocity5.6cm/sE/A ratio0.0 TDI E/Lateral E'0.0E/Medial E'0.0 Tricuspid Valve TR Peak [id number] Peak [id number] <Conclusion> tds. poor window. normal size la,lv & ra rv. normal lv wall motion,thickness,systolic & diastolic funciton with lvef of 60-65%. grossly normal valves & dopppler. small anteior echo free space,probably fat. normal size aortic root,
[2017-09-04] MEDS: White Petrolatum/Mineral Oil Ophth Oint(3.5 gm) OS PRN (12:27)
[2017-09-04] MEDS ORDERED: Acetaminophen 650mg/20.3ml solution UD PO ONE (13:00)
[2017-09-04] MEDS: Midazolam 50 mg/10 ml 100 MG in Sodium Chloride 0.9% 80 ML IV SCH (14:26)
--- NOTE | 2017-09-04 15:17 | CP.CCUPN ---
Addendum entered and electronically signed by Liset Massey 09/04/17 16:53 : Heme: anemia 09/04: H/H : 7.6/22, 1 unit PRBC transfused Original Note: <Liset Massey - Last Filed: 09/04/17 15:45> CCU Subjective - Physician Review Subjective (Free Text): Patient seen and examined at bedside. Patient currently intubated. ROS unobtainable due to patient's current clinical status. CCU Objective - Vital Signs / Intake & Output Vital Signs (Last 4 hours): Vital Signs Temp Pulse Resp BP Pulse Ox 09/04/17 15:06 99.7 F H 124 H 22 80/48 L 09/04/17 15:00 124 H 22 100 09/04/17 14:51 99.3 F 121 H 22 80/48 L 09/04/17 14:41 122 H 20 80/52 L 100 09/04/17 14:21 121 H 20 80/48 L 100 09/04/17 14:00 123 H 23 100 09/04/17 13:21 133 H 22 91/63 L 100 09/04/17 13:00 135 H 27 H 100 09/04/17 12:21 134 H 24 100/68 100 09/04/17 12:00 99.9 F H 135 H 24 100 09/04/17 11:22 135 H 20 101/64 99 Intake and Output (Last 8hrs): Intake & Output 09/04/17 09/04/17 09/04/17 06:59 14:59 22:59 Intake Total 985.8 1795.8 115.6 Output Total 420 405 30 Balance 565.8 1390.8 85.6 Weight 169 lb Intake: IV 100 200 Intake, IV Amount 725.8 1325.8 12.6 Right Distal Port 625 1225 0 Internal Jugular Right Medial Port 40 40 5 Internal Jugular Right Proximal Port 60.8 60.8 7.6 Internal Jugular Tube Feeding 160 160 20 Blood Product 0 83 Red Blood Cells Cpd As1 0 Lr Unit [id number] Other 110 Output: Urine 340 325 30 Urethral (Andino) 340 325 30 Stool 80 80 - Physical Exam Head: Positive for: Atraumatic, Normocephalic Pupils: Positive for: Sluggish Extroacular Muscles: Negative for: EOMI Mouth: Positive for: Moist Mucous Membranes Respiratory/Chest: Positive for: Good Air Exchange, Other (intubated ) Cardiovascular: Positive for: Normal S1, S2, Tachycardic Abdomen: Positive for: Normal Bowel Sounds. Negative for: Distention Upper Extremity: Negative for: Edema Lower Extremity: Negative for: Edema Neurological: Negative for: GCS=15, Speech Normal Skin: Positive for: Normal Color Psychiatric: Negative for: Alert, Oriented x 3 - Medications Active Medications: Active Medications Generic Name Dose Route Start Last Admin Trade Name Freq PRN Reason Stop Dose Admin Albuterol/Ipratropium 3 ml 09/03/17 16:00 09/04/17 08:51 Duoneb 3 Mg/0.5 Mg (3 Ml) Ud INH 3 ml RQ8 EUSEBIO Administration Artificial Tears 1 gm 08/31/17 12:00 09/04/17 12:27 Lacri-Lube OS 1 gm Q6H PRN Administration Sedation Heparin Sodium (Porcine) 5,000 units 08/30/17 22:00 09/04/17 09:39 Heparin SC 5,000 units Q12 EUSEBIO Administration Midazolam HCl 100 mg/ Sodium 100 mls @ 5 mls/hr 08/31/17 08:29 09/04/17 14:26 Chloride IV 5 mg/hr .Q20H EUSEBIO 5 mls/hr Protocol Administration 5 MG/HR Propofol 1,000 mg in 100 mls @ 0.381 mls/hr 08/31/17 11:11 09/04/17 09:39 Diprivan IV 20 mcg/kg/min .Q24H PRN 7.62 mls/hr TITRATE PER MD ORDER Administration Protocol 1 MCG/KG/MIN Levetiracetam 1,000 mg/ Sodium 110 mls @ 420 mls/hr 09/01/17 06:00 09/04/17 05:47 Chloride IVPB 420 mls/hr Q12H EUSEBIO Administration Potassium Chloride 20 meq/ 1,010 mls @ 125 mls/hr 09/04/17 09:57 09/04/17 12: 21 Sodium Chloride IV Not Given .Q8H5M EUSEBIO Pantoprazole Sodium 40 mg 08/31/17 10:00 09/04/17 09:40 Protonix Inj IVP 40 mg DAILY EUSEBIO Administration Potassium Phos/Sodium Phos 1 pkt 09/01/17 10:30 09/04/17 12:21 Neutra-Phos NG 1 pkt Q6 EUSEBIO Administration Thiamine HCl 100 mg 08/30/17 22:15 09/04/17 09:40 Vitamin B1 Inj IV 100 mg DAILY EUSEBIO Administration - Patient Studies Lab Studies: Microbiology Studies 09/03/17 17:51 Gram Stain - Final Sputum Sputum Culture - Preliminary Gram Positive Cocci Lab Studies 09/04/17 09/04/17 09/04/17 Range/Units 11:35 11:29 06:25 WBC (4.8-10.8) K/uL RBC (3.80-5.20) Mil/uL Hgb (11.0-16.0) g/dL Hct (34.0-47.0) % MCV (81.0-99.0) fL MCH (27.0-31.0) pg MCHC (33.0-37.0) g/dL RDW (11.5-14.5) % Plt Count (130-400) K/uL MPV (7.2-11.7) fL Neut % (Auto) (50.0-75.0) % Lymph % (Auto) (20.0-40.0) % [place] % (Auto) (0.0-10.0) % Eos % (Auto) (0.0-4.0) % Baso % (Auto) (0.0-2.0) % Neut # (1.8-7.0) K/uL Lymph # (1.0-4.3) K/uL [place] # (0.0-0.8) K/uL Eos # (0.0-0.7) K/uL Baso # (0.0-0.2) K/uL Differential Comment Hemoglobin A (>96.0) Percent Hemoglobin A2 (1.8-3.5) Percent Hemoglobin C (0.0-0.0) Percent Hemoglobin F () (<2.0) Percent Hemoglobin S (0.0-0.0) Percent Variant Hemoglobin (0.0-0.0) Percent Hemoglobinopathy Interp Puncture Site Lr pCO2 29 L (35-45) mm/Hg pO2 110 H (80-100) mm/Hg HCO3 25.7 (21-28) mmol/L ABG pH 7.51 H (7.35-7.45) ABG Total CO2 24.0 (22-28) mmol/L ABG O2 Saturation 99.8 H (95-98) % ABG Base Excess 1.0 (-2.0-3.0) mmol/L Stephen Test Pos A-a O2 Difference 139.0 mm/Hg Respiratory Index 1.3 Vent Mode Prvc Mechanical Rate 14 FiO2 40.0 % Tidal Volume 450 PEEP 5 Sodium (132-148) mmol/L Potassium (3.6-5.2) mmol/L Chloride (98-107) mmol/L Carbon Dioxide (22-30) mmol/L Anion Gap (10-20) BUN (7-17) mg/dL Creatinine (0.7-1.2) mg/dL Est GFR ( Amer) Est GFR (Non-Af Amer) POC Glucose (mg/dL) 130 H (65-110) mg/dL Random Glucose (65-105) mg/dL Calcium (8.6-10.4) mg/dl Phosphorus (2.5-4.5) mg/dL Magnesium (1.6-2.3) mg/dL Total Bilirubin (0.2-1.3) mg/dL AST (14-36) U/L ALT (9-52) U/L Alkaline Phosphatase (38-126) U/L Total Protein (6.3-8.3) g/dL Albumin (3.5-5.0) g/dL Globulin (2.2-3.9) gm/dL Albumin/Globulin Ratio (1.0-2.1) C. difficile Ag & Toxin (NEGATIVE) Blood Type O POSITIVE Antibody Screen Negative 09/04/17 09/04/17 09/04/17 Range/Units 06:14 06:10 05:26 WBC 7.8 (4.8-10.8) K/uL RBC 2.44 L (3.80-5.20) Mil/uL Hgb 7.6 L (11.0-16.0) g/dL Hct 22.0 L (34.0-47.0) % MCV 90.2 (81.0-99.0) fL MCH 31.3 H (27.0-31.0) pg MCHC 34.7 (33.0-37.0) g/dL RDW 16.6 H (11.5-14.5) % Plt Count 119 L (130-400) K/uL MPV 7.8 (7.2-11.7) fL Neut % (Auto) 81.9 H (50.0-75.0) % Lymph % (Auto) 10.8 L (20.0-40.0) % [place] % (Auto) 6.3 (0.0-10.0) % Eos % (Auto) 0.5 (0.0-4.0) % Baso % (Auto) 0.5 (0.0-2.0) % Neut # 6.4 (1.8-7.0) K/uL Lymph # 0.8 L (1.0-4.3) K/uL [place] # 0.5 (0.0-0.8) K/uL Eos # 0.0 (0.0-0.7) K/uL Baso # 0.0 (0.0-0.2) K/uL Differential Comment Hemoglobin A (>96.0) Percent Hemoglobin A2 (1.8-3.5) Percent Hemoglobin C (0.0-0.0) Percent Hemoglobin F () (<2.0) Percent Hemoglobin S (0.0-0.0) Percent Variant Hemoglobin (0.0-0.0) Percent Hemoglobinopathy Interp Puncture Site pCO2 (35-45) mm/Hg pO2 (80-100) mm/Hg HCO3 (21-28) mmol/L ABG pH (7.35-7.45) ABG Total CO2 (22-28) mmol/L ABG O2 Saturation (95-98) % ABG Base Excess (-2.0-3.0) mmol/L Stephen Test A-a O2 Difference mm/Hg Respiratory Index Vent Mode Mechanical Rate FiO2 % Tidal Volume PEEP Sodium 132 (132-148) mmol/L Potassium 3.0 L (3.6-5.2) mmol/L Chloride 102 (98-107) mmol/L Carbon Dioxide 21 L (22-30) mmol/L Anion Gap 12 (10-20) BUN 5 L (7-17) mg/dL Creatinine 0.3 L (0.7-1.2) mg/dL Est GFR ( Amer) > 60 Est GFR (Non-Af Amer) > 60 POC Glucose (mg/dL) 98 (65-110) mg/dL Random Glucose 81 (65-105) mg/dL Calcium 7.8 L (8.6-10.4) mg/dl Phosphorus 3.4 (2.5-4.5) mg/dL Magnesium 1.2 L (1.6-2.3) mg/dL Total Bilirubin 2.6 H (0.2-1.3) mg/dL AST 40 H D (14-36) U/L ALT 38 (9-52) U/L Alkaline Phosphatase 104 (38-126) U/L Total Protein 5.5 L (6.3-8.3) g/dL Albumin 2.4 L (3.5-5.0) g/dL Globulin 3.1 (2.2-3.9) gm/dL Albumin/Globulin Ratio 0.8 L (1.0-2.1) C. difficile Ag & Toxin (NEGATIVE) Blood Type Antibody Screen 09/04/17 09/03/17 09/03/17 Range/Units 00:08 17:47 09:58 WBC (4.8-10.8) K/uL RBC (3.80-5.20) Mil/uL Hgb (11.0-16.0) g/dL Hct (34.0-47.0) % MCV (81.0-99.0) fL MCH (27.0-31.0) pg MCHC (33.0-37.0) g/dL RDW (11.5-14.5) % Plt Count (130-400) K/uL MPV (7.2-11.7) fL Neut % (Auto) (50.0-75.0) % Lymph % (Auto) (20.0-40.0) % [place] % (Auto) (0.0-10.0) % Eos % (Auto) (0.0-4.0) % Baso % (Auto) (0.0-2.0) % Neut # (1.8-7.0) K/uL Lymph # (1.0-4.3) K/uL [place] # (0.0-0.8) K/uL Eos # (0.0-0.7) K/uL Baso # (0.0-0.2) K/uL Differential Comment Hemoglobin A (>96.0) Percent Hemoglobin A2 (1.8-3.5) Percent Hemoglobin C (0.0-0.0) Percent Hemoglobin F () (<2.0) Percent Hemoglobin S (0.0-0.0) Percent Variant Hemoglobin (0.0-0.0) Percent Hemoglobinopathy Interp Puncture Site pCO2 (35-45) mm/Hg pO2 (80-100) mm/Hg HCO3 (21-28) mmol/L ABG pH (7.35-7.45) ABG Total CO2 (22-28) mmol/L ABG O2 Saturation (95-98) % ABG Base Excess (-2.0-3.0) mmol/L Stephen Test A-a O2 Difference mm/Hg Respiratory Index Vent Mode Mechanical Rate FiO2 % Tidal Volume PEEP Sodium (132-148) mmol/L Potassium (3.6-5.2) mmol/L Chloride (98-107) mmol/L Carbon Dioxide (22-30) mmol/L Anion Gap (10-20) BUN (7-17) mg/dL Creatinine (0.7-1.2) mg/dL Est GFR ( Amer) Est GFR (Non-Af Amer) POC Glucose (mg/dL) 106 95 (65-110) mg/dL Random Glucose (65-105) mg/dL Calcium (8.6-10.4) mg/dl Phosphorus (2.5-4.5) mg/dL Magnesium (1.6-2.3) mg/dL Total Bilirubin (0.2-1.3) mg/dL AST (14-36) U/L ALT (9-52) U/L Alkaline Phosphatase (38-126) U/L Total Protein (6.3-8.3) g/dL Albumin (3.5-5.0) g/dL Globulin (2.2-3.9) gm/dL Albumin/Globulin Ratio (1.0-2.1) C. difficile Ag & Toxin Negative (NEGATIVE) Blood Type Antibody Screen 08/31/17 Range/Units 08:08 WBC (4.8-10.8) K/uL RBC (3.80-5.20) Mil/uL Hgb (11.0-16.0) g/dL Hct (34.0-47.0) % MCV (81.0-99.0) fL MCH (27.0-31.0) pg MCHC (33.0-37.0) g/dL RDW (11.5-14.5) % Plt Count (130-400) K/uL MPV (7.2-11.7) fL Neut % (Auto) (50.0-75.0) % Lymph % (Auto) (20.0-40.0) % [place] % (Auto) (0.0-10.0) % Eos % (Auto) (0.0-4.0) % Baso % (Auto) (0.0-2.0) % Neut # (1.8-7.0) K/uL Lymph # (1.0-4.3) K/uL [place] # (0.0-0.8) K/uL Eos # (0.0-0.7) K/uL Baso # (0.0-0.2) K/uL Differential Comment Hemoglobin A 96.7 (>96.0) Percent Hemoglobin A2 2.3 (1.8-3.5) Percent Hemoglobin C 0.0 (0.0-0.0) Percent Hemoglobin F () <1.0 (<2.0) Percent Hemoglobin S 0.0 (0.0-0.0) Percent Variant Hemoglobin 0.0 (0.0-0.0) Percent Hemoglobinopathy Interp See note Puncture Site pCO2 (35-45) mm/Hg pO2 (80-100) mm/Hg HCO3 (21-28) mmol/L ABG pH (7.35-7.45) ABG Total CO2 (22-28) mmol/L ABG O2 Saturation (95-98) % ABG Base Excess (-2.0-3.0) mmol/L Stephen Test A-a O2 Difference mm/Hg Respiratory Index Vent Mode Mechanical Rate FiO2 % Tidal Volume PEEP Sodium (132-148) mmol/L Potassium (3.6-5.2) mmol/L Chloride (98-107) mmol/L Carbon Dioxide (22-30) mmol/L Anion Gap (10-20) BUN (7-17) mg/dL Creatinine (0.7-1.2) mg/dL Est GFR ( Amer) Est GFR (Non-Af Amer) POC Glucose (mg/dL) (65-110) mg/dL Random Glucose (65-105) mg/dL Calcium (8.6-10.4) mg/dl Phosphorus (2.5-4.5) mg/dL Magnesium (1.6-2.3) mg/dL Total Bilirubin (0.2-1.3) mg/dL AST (14-36) U/L ALT (9-52) U/L Alkaline Phosphatase (38-126) U/L Total Protein (6.3-8.3) g/dL Albumin (3.5-5.0) g/dL Globulin (2.2-3.9) gm/dL Albumin/Globulin Ratio (1.0-2.1) C. difficile Ag & Toxin (NEGATIVE) Blood Type Antibody Screen Laboratory Results - last 24 hr 08/31/17 09/03/17 09/03/17 08:08 09:58 17:47 WBC RBC Hgb Hct MCV MCH MCHC RDW Plt Count MPV Neut % (Auto) Lymph % (Auto) [place] % (Auto) Eos % (Auto) Baso % (Auto) Neut # Lymph # [place] # Eos # Baso # Differential Comment Hemoglobin A 96.7 Hemoglobin A2 2.3 Hemoglobin C 0.0 Hemoglobin F () <1.0 Hemoglobin S 0.0 Variant Hemoglobin 0.0 Hemoglobinopathy Interp See note Puncture Site pCO2 pO2 HCO3 ABG pH ABG Total CO2 ABG O2 Saturation ABG Base Excess Stephen Test A-a O2 Difference Respiratory Index Vent Mode Mechanical Rate FiO2 Tidal Volume PEEP Sodium Potassium Chloride Carbon Dioxide Anion Gap BUN Creatinine Est GFR ( Amer) Est GFR (Non-Af Amer) POC Glucose (mg/dL) 95 Random Glucose Calcium Phosphorus Magnesium Total Bilirubin AST ALT Alkaline Phosphatase Total Protein Albumin Globulin Albumin/Globulin Ratio C. difficile Ag & Toxin Negative Blood Type Antibody Screen 09/04/17 09/04/17 09/04/17 00:08 05:26 06:10 WBC RBC Hgb Hct MCV MCH MCHC RDW Plt Count MPV Neut % (Auto) Lymph % (Auto) [place] % (Auto) Eos % (Auto) Baso % (Auto) Neut # Lymph # [place] # Eos # Baso # Differential Comment Hemoglobin A Hemoglobin A2 Hemoglobin C Hemoglobin F () Hemoglobin S Variant Hemoglobin Hemoglobinopathy Interp Puncture Site pCO2 pO2 HCO3 ABG pH ABG Total CO2 ABG O2 Saturation ABG Base Excess Stephen Test A-a O2 Difference Respiratory Index Vent Mode Mechanical Rate FiO2 Tidal Volume PEEP Sodium 132 Potassium 3.0 L Chloride 102 Carbon Dioxide 21 L Anion Gap 12 BUN 5 L Creatinine 0.3 L Est GFR ( Amer) > 60 Est GFR (Non-Af Amer) > 60 POC Glucose (mg/dL) 106 98 Random Glucose 81 Calcium 7.8 L Phosphorus 3.4 Magnesium 1.2 L Total Bilirubin 2.6 H AST 40 H D ALT 38 Alkaline Phosphatase 104 Total Protein 5.5 L Albumin 2.4 L Globulin 3.1 Albumin/Globulin Ratio 0.8 L C. difficile Ag & Toxin Blood Type Antibody Screen 09/04/17 09/04/17 09/04/17 06:14 06:25 11:29 WBC 7.8 RBC 2.44 L Hgb 7.6 L Hct 22.0 L MCV 90.2 MCH 31.3 H MCHC 34.7 RDW 16.6 H Plt Count 119 L MPV 7.8 Neut % (Auto) 81.9 H Lymph % (Auto) 10.8 L [place] % (Auto) 6.3 Eos % (Auto) 0.5 Baso % (Auto) 0.5 Neut # 6.4 Lymph # 0.8 L [place] # 0.5 Eos # 0.0 Baso # 0.0 Differential Comment Hemoglobin A Hemoglobin A2 Hemoglobin C Hemoglobin F () Hemoglobin S Variant Hemoglobin Hemoglobinopathy Interp Puncture Site Lr pCO2 29 L pO2 110 H HCO3 25.7 ABG pH 7.51 H ABG Total CO2 24.0 ABG O2 Saturation 99.8 H ABG Base Excess 1.0 Stephen Test Pos A-a O2 Difference 139.0 Respiratory Index 1.3 Vent Mode Prvc Mechanical Rate 14 FiO2 40.0 Tidal Volume 450 PEEP 5 Sodium Potassium Chloride Carbon Dioxide Anion Gap BUN Creatinine Est GFR ( Amer) Est GFR (Non-Af Amer) POC Glucose (mg/dL) 130 H Random Glucose Calcium Phosphorus Magnesium Total Bilirubin AST ALT Alkaline Phosphatase Total Protein Albumin Globulin Albumin/Globulin Ratio C. difficile Ag & Toxin Blood Type Antibody Screen 09/04/17 11:35 WBC RBC Hgb Hct MCV MCH MCHC RDW Plt Count MPV Neut % (Auto) Lymph % (Auto) [place] % (Auto) Eos % (Auto) Baso % (Auto) Neut # Lymph # [place] # Eos # Baso # Differential Comment Hemoglobin A Hemoglobin A2 Hemoglobin C Hemoglobin F () Hemoglobin S Variant Hemoglobin Hemoglobinopathy Interp Puncture Site pCO2 pO2 HCO3 ABG pH ABG Total CO2 ABG O2 Saturation ABG Base Excess Stephen Test A-a O2 Difference Respiratory Index Vent Mode Mechanical Rate FiO2 Tidal Volume PEEP Sodium Potassium Chloride Carbon Dioxide Anion Gap BUN Creatinine Est GFR ( Amer) Est GFR (Non-Af Amer) POC Glucose (mg/dL) Random Glucose Calcium Phosphorus Magnesium Total Bilirubin AST ALT Alkaline Phosphatase Total Protein Albumin Globulin Albumin/Globulin Ratio C. difficile Ag & Toxin Blood Type O POSITIVE Antibody Screen Negative Fingerstick Blood Sugar Results: 130 Assessment/Plan - Assessment and Plan (Free Text) Assessment: 36 year old female with past medical history of anemia and alcohol abuse, who was found unconscious by . EMS was called and patient was found to be in Asystole, ACLS protocol was initiated and 2 rounds of epinephrine and then ROSC. Patient was unconscious in the ED. Subsequently, patient was admitted to the ICU and hypothermia protocol was initiated. Plan: Neuro: Intubated, Acute seizures Neurologist, Dr. Pugh---> help appreciated * Management as per recommendation Medication/Management: * Keppra 500mg IV Q12H * Versed drip * Propofol 1,000mg in 100ml IV 1mcg/kg/min (Titratable) * one dose Klonopin 1 mg Cardio: Cardiopulmonary Arrest Management: * Intubated * Hypothermia protocol was initiated Pulm: Respiratory distress secondary to cardiac arrest Management: * Intubated * f/u sputum culture: gram positive cocci * Vanco 1 gm dose on 09/04 GI: Diarrhea * C. Dif negative Renal: Hyponatremia Nephrology, Dr. Ramos---> Help appreciated * Management as per recommendation * Potassium and Magnesium repleted Psych: Alcohol abuse disorder * Thiamine 100mg IV daily * Psychiatric consult once patient is clinically stable Prophylaxis measures: R IJ in place DVT: SCDs, Heparin 5,000units SC Q12H GI: Protonix 40mg IV daily NS @ 125cc/hr <Burton Walters - Last Filed: 09/04/17 17:21> CCU Objective - Vital Signs / Intake & Output Vital Signs (Last 4 hours): Vital Signs Temp Pulse Resp BP Pulse Ox 09/04/17 16:22 132 H 14 91/58 L 100 09/04/17 16:00 99.6 F 129 H 21 100 09/04/17 15:51 99.6 F 130 H 26 H 95/62 L 09/04/17 15:49 130 H 28 H 95/62 L 100 09/04/17 15:22 124 H 22 83/50 L 100 09/04/17 15:21 99.7 F H 124 H 22 81/48 L 100 09/04/17 15:06 99.7 F H 124 H 22 80/48 L 09/04/17 15:03 124 H 23 80/48 L 100 09/04/17 15:00 124 H 22 100 09/04/17 14:51 99.3 F 121 H 22 80/48 L 09/04/17 14:41 122 H 20 80/52 L 100 09/04/17 14:21 121 H 20 80/48 L 100 09/04/17 14:00 123 H 23 100 09/04/17 13:21 133 H 22 91/63 L 100 Intake and Output (Last 8hrs): Intake & Output 09/04/17 09/04/17 09/04/17 06:59 14:59 22:59 Intake Total 985.8 1795.8 115.6 Output Total 420 405 30 Balance 565.8 1390.8 85.6 Weight 169 lb Intake: IV 100 200 Intake, IV Amount 725.8 1325.8 12.6 Right Distal Port 625 1225 0 Internal Jugular Right Medial Port 40 40 5 Internal Jugular Right Proximal Port 60.8 60.8 7.6 Internal Jugular Tube Feeding 160 160 20 Blood Product 0 83 Red Blood Cells Cpd As1 0 Lr Unit [id number] Other 110 Output: Urine 340 325 30 Urethral (Andino) 340 325 30 Stool 80 80 - Medications Active Medications: Active Medications Generic Name Dose Route Start Last Admin Trade Name Freq PRN Reason Stop Dose Admin Albuterol/Ipratropium 3 ml 09/03/17 16:00 09/04/17 16:02 Duoneb 3 Mg/0.5 Mg (3 Ml) Ud INH 3 ml RQ8 EUSEBIO Administration Artificial Tears 1 gm 08/31/17 12:00 09/04/17 12:27 Lacri-Lube OS 1 gm Q6H PRN Administration Sedation Heparin Sodium (Porcine) 5,000 units 08/30/17 22:00 09/04/17 09:39 Heparin SC 5,000 units Q12 EUSEBIO Administration Midazolam HCl 100 mg/ Sodium 100 mls @ 5 mls/hr 08/31/17 08:29 09/04/17 14:26 Chloride IV 5 mg/hr .Q20H EUSEBIO 5 mls/hr Protocol Administration 5 MG/HR Propofol 1,000 mg in 100 mls @ 0.381 mls/hr 08/31/17 11:11 09/04/17 09:39 Diprivan IV 20 mcg/kg/min .Q24H PRN 7.62 mls/hr TITRATE PER MD ORDER Administration Protocol 1 MCG/KG/MIN Levetiracetam 1,000 mg/ Sodium 110 mls @ 420 mls/hr 09/01/17 06:00 09/04/17 05:47 Chloride IVPB 420 mls/hr Q12H EUSEBIO Administration Potassium Chloride 20 meq/ 1,010 mls @ 125 mls/hr 09/04/17 09:57 09/04/17 12: 21 Sodium Chloride IV Not Given .Q8H5M EUSEBIO Vancomycin/Sodium Chloride 1 gm in 200 mls @ 133 mls/hr 09/04/17 16:00 Vancomycin 1 Gm/Ns 200 Ml IVPB 09/04/17 17:30 ONCE ONE Pantoprazole Sodium 40 mg 08/31/17 10:00 09/04/17 09:40 Protonix Inj IVP 40 mg DAILY EUSEBIO Administration Potassium Phos/Sodium Phos 1 pkt 09/01/17 10:30 09/04/17 12:21 Neutra-Phos NG 1 pkt Q6 EUSEBIO Administration Thiamine HCl 100 mg 08/30/17 22:15 09/04/17 09:40 Vitamin B1 Inj IV 100 mg DAILY EUSEBIO Administration - Patient Studies Lab Studies: Microbiology Studies 09/03/17 17:51 Gram Stain - Final Sputum Sputum Culture - Preliminary Gram Positive Cocci Lab Studies 09/04/17 09/04/17 09/04/17 Range/Units 16:12 11:35 11:29 WBC (4.8-10.8) K/uL RBC (3.80-5.20) Mil/uL Hgb (11.0-16.0) g/dL Hct (34.0-47.0) % MCV (81.0-99.0) fL MCH (27.0-31.0) pg MCHC (33.0-37.0) g/dL RDW (11.5-14.5) % Plt Count (130-400) K/uL MPV (7.2-11.7) fL Neut % (Auto) (50.0-75.0) % Lymph % (Auto) (20.0-40.0) % [place] % (Auto) (0.0-10.0) % Eos % (Auto) (0.0-4.0) % Baso % (Auto) (0.0-2.0) % Neut # (1.8-7.0) K/uL Lymph # (1.0-4.3) K/uL [place] # (0.0-0.8) K/uL Eos # (0.0-0.7) K/uL Baso # (0.0-0.2) K/uL Differential Comment Hemoglobin A (>96.0) Percent Hemoglobin A2 (1.8-3.5) Percent Hemoglobin C (0.0-0.0) Percent Hemoglobin F () (<2.0) Percent Hemoglobin S (0.0-0.0) Percent Variant Hemoglobin (0.0-0.0) Percent Hemoglobinopathy Interp Puncture Site pCO2 (35-45) mm/Hg pO2 (80-100) mm/Hg HCO3 (21-28) mmol/L ABG pH (7.35-7.45) ABG Total CO2 (22-28) mmol/L ABG O2 Saturation (95-98) % ABG Base Excess (-2.0-3.0) mmol/L Stephen Test A-a O2 Difference mm/Hg Respiratory Index Vent Mode Mechanical Rate FiO2 % Tidal Volume PEEP Sodium 131 L (132-148) mmol/L Potassium 2.9 L (3.6-5.2) mmol/L Chloride 101 (98-107) mmol/L Carbon Dioxide 21 L (22-30) mmol/L Anion Gap 12 (10-20) BUN 5 L (7-17) mg/dL Creatinine 0.4 L (0.7-1.2) mg/dL Est GFR ( Amer) > 60 Est GFR (Non-Af Amer) > 60 POC Glucose (mg/dL) 130 H (65-110) mg/dL Random Glucose 110 H (65-105) mg/dL Calcium 8.1 L (8.6-10.4) mg/dl Phosphorus 3.0 (2.5-4.5) mg/dL Magnesium 1.6 (1.6-2.3) mg/dL Total Bilirubin (0.2-1.3) mg/dL AST (14-36) U/L ALT (9-52) U/L Alkaline Phosphatase (38-126) U/L Total Protein (6.3-8.3) g/dL Albumin (3.5-5.0) g/dL Globulin (2.2-3.9) gm/dL Albumin/Globulin Ratio (1.0-2.1) C. difficile Ag & Toxin (NEGATIVE) Blood Type O POSITIVE Antibody Screen Negative 09/04/17 09/04/17 09/04/17 Range/Units 06:25 06:14 06:10 WBC 7.8 (4.8-10.8) K/uL RBC 2.44 L (3.80-5.20) Mil/uL Hgb 7.6 L (11.0-16.0) g/dL Hct 22.0 L (34.0-47.0) % MCV 90.2 (81.0-99.0) fL MCH 31.3 H (27.0-31.0) pg MCHC 34.7 (33.0-37.0) g/dL RDW 16.6 H (11.5-14.5) % Plt Count 119 L (130-400) K/uL MPV 7.8 (7.2-11.7) fL Neut % (Auto) 81.9 H (50.0-75.0) % Lymph % (Auto) 10.8 L (20.0-40.0) % [place] % (Auto) 6.3 (0.0-10.0) % Eos % (Auto) 0.5 (0.0-4.0) % Baso % (Auto) 0.5 (0.0-2.0) % Neut # 6.4 (1.8-7.0) K/uL Lymph # 0.8 L (1.0-4.3) K/uL [place] # 0.5 (0.0-0.8) K/uL Eos # 0.0 (0.0-0.7) K/uL Baso # 0.0 (0.0-0.2) K/uL Differential Comment Hemoglobin A (>96.0) Percent Hemoglobin A2 (1.8-3.5) Percent Hemoglobin C (0.0-0.0) Percent Hemoglobin F () (<2.0) Percent Hemoglobin S (0.0-0.0) Percent Variant Hemoglobin (0.0-0.0) Percent Hemoglobinopathy Interp Puncture Site Lr pCO2 29 L (35-45) mm/Hg pO2 110 H (80-100) mm/Hg HCO3 25.7 (21-28) mmol/L ABG pH 7.51 H (7.35-7.45) ABG Total CO2 24.0 (22-28) mmol/L ABG O2 Saturation 99.8 H (95-98) % ABG Base Excess 1.0 (-2.0-3.0) mmol/L Stephen Test Pos A-a O2 Difference 139.0 mm/Hg Respiratory Index 1.3 Vent Mode Prvc Mechanical Rate 14 FiO2 40.0 % Tidal Volume 450 PEEP 5 Sodium 132 (132-148) mmol/L Potassium 3.0 L (3.6-5.2) mmol/L Chloride 102 (98-107) mmol/L Carbon Dioxide 21 L (22-30) mmol/L Anion Gap 12 (10-20) BUN 5 L (7-17) mg/dL Creatinine 0.3 L (0.7-1.2) mg/dL Est GFR ( Amer) > 60 Est GFR (Non-Af Amer) > 60 POC Glucose (mg/dL) (65-110) mg/dL Random Glucose 81 (65-105) mg/dL Calcium 7.8 L (8.6-10.4) mg/dl Phosphorus 3.4 (2.5-4.5) mg/dL Magnesium 1.2 L (1.6-2.3) mg/dL Total Bilirubin 2.6 H (0.2-1.3) mg/dL AST 40 H D (14-36) U/L ALT 38 (9-52) U/L Alkaline Phosphatase 104 (38-126) U/L Total Protein 5.5 L (6.3-8.3) g/dL Albumin 2.4 L (3.5-5.0) g/dL Globulin 3.1 (2.2-3.9) gm/dL Albumin/Globulin Ratio 0.8 L (1.0-2.1) C. difficile Ag & Toxin (NEGATIVE) Blood Type Antibody Screen 09/04/17 09/04/17 09/03/17 Range/Units 05:26 00:08 17:47 WBC (4.8-10.8) K/uL RBC (3.80-5.20) Mil/uL Hgb (11.0-16.0) g/dL Hct (34.0-47.0) % MCV (81.0-99.0) fL MCH (27.0-31.0) pg MCHC (33.0-37.0) g/dL RDW (11.5-14.5) % Plt Count (130-400) K/uL MPV (7.2-11.7) fL Neut % (Auto) (50.0-75.0) % Lymph % (Auto) (20.0-40.0) % [place] % (Auto) (0.0-10.0) % Eos % (Auto) (0.0-4.0) % Baso % (Auto) (0.0-2.0) % Neut # (1.8-7.0) K/uL Lymph # (1.0-4.3) K/uL [place] # (0.0-0.8) K/uL Eos # (0.0-0.7) K/uL Baso # (0.0-0.2) K/uL Differential Comment Hemoglobin A (>96.0) Percent Hemoglobin A2 (1.8-3.5) Percent Hemoglobin C (0.0-0.0) Percent Hemoglobin F () (<2.0) Percent Hemoglobin S (0.0-0.0) Percent Variant Hemoglobin (0.0-0.0) Percent Hemoglobinopathy Interp Puncture Site pCO2 (35-45) mm/Hg pO2 (80-100) mm/Hg HCO3 (21-28) mmol/L ABG pH (7.35-7.45) ABG Total CO2 (22-28) mmol/L ABG O2 Saturation (95-98) % ABG Base Excess (-2.0-3.0) mmol/L Stephen Test A-a O2 Difference mm/Hg Respiratory Index Vent Mode Mechanical Rate FiO2 % Tidal Volume PEEP Sodium (132-148) mmol/L Potassium (3.6-5.2) mmol/L Chloride (98-107) mmol/L Carbon Dioxide (22-30) mmol/L Anion Gap (10-20) BUN (7-17) mg/dL Creatinine (0.7-1.2) mg/dL Est GFR ( Amer) Est GFR (Non-Af Amer) POC Glucose (mg/dL) 98 106 95 (65-110) mg/dL Random Glucose (65-105) mg/dL Calcium (8.6-10.4) mg/dl Phosphorus (2.5-4.5) mg/dL Magnesium (1.6-2.3) mg/dL Total Bilirubin (0.2-1.3) mg/dL AST (14-36) U/L ALT (9-52) U/L Alkaline Phosphatase (38-126) U/L Total Protein (6.3-8.3) g/dL Albumin (3.5-5.0) g/dL Globulin (2.2-3.9) gm/dL Albumin/Globulin Ratio (1.0-2.1) C. difficile Ag & Toxin (NEGATIVE) Blood Type Antibody Screen 09/03/17 08/31/17 Range/Units 09:58 08:08 WBC (4.8-10.8) K/uL RBC (3.80-5.20) Mil/uL Hgb (11.0-16.0) g/dL Hct (34.0-47.0) % MCV (81.0-99.0) fL MCH (27.0-31.0) pg MCHC (33.0-37.0) g/dL RDW (11.5-14.5) % Plt Count (130-400) K/uL MPV (7.2-11.7) fL Neut % (Auto) (50.0-75.0) % Lymph % (Auto) (20.0-40.0) % [place] % (Auto) (0.0-10.0) % Eos % (Auto) (0.0-4.0) % Baso % (Auto) (0.0-2.0) % Neut # (1.8-7.0) K/uL Lymph # (1.0-4.3) K/uL [place] # (0.0-0.8) K/uL Eos # (0.0-0.7) K/uL Baso # (0.0-0.2) K/uL Differential Comment Hemoglobin A 96.7 (>96.0) Percent Hemoglobin A2 2.3 (1.8-3.5) Percent Hemoglobin C 0.0 (0.0-0.0) Percent Hemoglobin F () <1.0 (<2.0) Percent Hemoglobin S 0.0 (0.0-0.0) Percent Variant Hemoglobin 0.0 (0.0-0.0) Percent Hemoglobinopathy Interp See note Puncture Site pCO2 (35-45) mm/Hg pO2 (80-100) mm/Hg HCO3 (21-28) mmol/L ABG pH (7.35-7.45) ABG Total CO2 (22-28) mmol/L ABG O2 Saturation (95-98) % ABG Base Excess (-2.0-3.0) mmol/L Stephen Test A-a O2 Difference mm/Hg Respiratory Index Vent Mode Mechanical Rate FiO2 % Tidal Volume PEEP Sodium (132-148) mmol/L Potassium (3.6-5.2) mmol/L Chloride (98-107) mmol/L Carbon Dioxide (22-30) mmol/L Anion Gap (10-20) BUN (7-17) mg/dL Creatinine (0.7-1.2) mg/dL Est GFR ( Amer) Est GFR (Non-Af Amer) POC Glucose (mg/dL) (65-110) mg/dL Random Glucose (65-105) mg/dL Calcium (8.6-10.4) mg/dl Phosphorus (2.5-4.5) mg/dL Magnesium (1.6-2.3) mg/dL Total Bilirubin (0.2-1.3) mg/dL AST (14-36) U/L ALT (9-52) U/L Alkaline Phosphatase (38-126) U/L Total Protein (6.3-8.3) g/dL Albumin (3.5-5.0) g/dL Globulin (2.2-3.9) gm/dL Albumin/Globulin Ratio (1.0-2.1) C. difficile Ag & Toxin Negative (NEGATIVE) Blood Type Antibody Screen Laboratory Results - last 24 hr 08/31/17 09/03/17 09/03/17 08:08 09:58 17:47 WBC RBC Hgb Hct MCV MCH MCHC RDW Plt Count MPV Neut % (Auto) Lymph % (Auto) [place] % (Auto) Eos % (Auto) Baso % (Auto) Neut # Lymph # [place] # Eos # Baso # Differential Comment Hemoglobin A 96.7 Hemoglobin A2 2.3 Hemoglobin C 0.0 Hemoglobin F () <1.0 Hemoglobin S 0.0 Variant Hemoglobin 0.0 Hemoglobinopathy Interp See note Puncture Site pCO2 pO2 HCO3 ABG pH ABG Total CO2 ABG O2 Saturation ABG Base Excess Stephen Test A-a O2 Difference Respiratory Index Vent Mode Mechanical Rate FiO2 Tidal Volume PEEP Sodium Potassium Chloride Carbon Dioxide Anion Gap BUN Creatinine Est GFR ( Amer) Est GFR (Non-Af Amer) POC Glucose (mg/dL) 95 Random Glucose Calcium Phosphorus Magnesium Total Bilirubin AST ALT Alkaline Phosphatase Total Protein Albumin Globulin Albumin/Globulin Ratio C. difficile Ag & Toxin Negative Blood Type Antibody Screen 09/04/17 09/04/17 09/04/17 00:08 05:26 06:10 WBC RBC Hgb Hct MCV MCH MCHC RDW Plt Count MPV Neut % (Auto) Lymph % (Auto) [place] % (Auto) Eos % (Auto) Baso % (Auto) Neut # Lymph # [place] # Eos # Baso # Differential Comment Hemoglobin A Hemoglobin A2 Hemoglobin C Hemoglobin F () Hemoglobin S Variant Hemoglobin Hemoglobinopathy Interp Puncture Site pCO2 pO2 HCO3 ABG pH ABG Total CO2 ABG O2 Saturation ABG Base Excess Stephen Test A-a O2 Difference Respiratory Index Vent Mode Mechanical Rate FiO2 Tidal Volume PEEP Sodium 132 Potassium 3.0 L Chloride 102 Carbon Dioxide 21 L Anion Gap 12 BUN 5 L Creatinine 0.3 L Est GFR ( Amer) > 60 Est GFR (Non-Af Amer) > 60 POC Glucose (mg/dL) 106 98 Random Glucose 81 Calcium 7.8 L Phosphorus 3.4 Magnesium 1.2 L Total Bilirubin 2.6 H AST 40 H D ALT 38 Alkaline Phosphatase 104 Total Protein 5.5 L Albumin 2.4 L Globulin 3.1 Albumin/Globulin Ratio 0.8 L C. difficile Ag & Toxin Blood Type Antibody Screen 09/04/17 09/04/17 09/04/17 06:14 06:25 11:29 WBC 7.8 RBC 2.44 L Hgb 7.6 L Hct 22.0 L MCV 90.2 MCH 31.3 H MCHC 34.7 RDW 16.6 H Plt Count 119 L MPV 7.8 Neut % (Auto) 81.9 H Lymph % (Auto) 10.8 L [place] % (Auto) 6.3 Eos % (Auto) 0.5 Baso % (Auto) 0.5 Neut # 6.4 Lymph # 0.8 L [place] # 0.5 Eos # 0.0 Baso # 0.0 Differential Comment Hemoglobin A Hemoglobin A2 Hemoglobin C Hemoglobin F () Hemoglobin S Variant Hemoglobin Hemoglobinopathy Interp Puncture Site Lr pCO2 29 L pO2 110 H HCO3 25.7 ABG pH 7.51 H ABG Total CO2 24.0 ABG O2 Saturation 99.8 H ABG Base Excess 1.0 Stephen Test Pos A-a O2 Difference 139.0 Respiratory Index 1.3 Vent Mode Prvc Mechanical Rate 14 FiO2 40.0 Tidal Volume 450 PEEP 5 Sodium Potassium Chloride Carbon Dioxide Anion Gap BUN Creatinine Est GFR ( Amer) Est GFR (Non-Af Amer) POC Glucose (mg/dL) 130 H Random Glucose Calcium Phosphorus Magnesium Total Bilirubin AST ALT Alkaline Phosphatase Total Protein Albumin Globulin Albumin/Globulin Ratio C. difficile Ag & Toxin Blood Type Antibody Screen 09/04/17 09/04/17 11:35 16:12 WBC RBC Hgb Hct MCV MCH MCHC RDW Plt Count MPV Neut % (Auto) Lymph % (Auto) [place] % (Auto) Eos % (Auto) Baso % (Auto) Neut # Lymph # [place] # Eos # Baso # Differential Comment Hemoglobin A Hemoglobin A2 Hemoglobin C Hemoglobin F () Hemoglobin S Variant Hemoglobin Hemoglobinopathy Interp Puncture Site pCO2 pO2 HCO3 ABG pH ABG Total CO2 ABG O2 Saturation ABG Base Excess Stephen Test A-a O2 Difference Respiratory Index Vent Mode Mechanical Rate FiO2 Tidal Volume PEEP Sodium 131 L Potassium 2.9 L Chloride 101 Carbon Dioxide 21 L Anion Gap 12 BUN 5 L Creatinine 0.4 L Est GFR ( Amer) > 60 Est GFR (Non-Af Amer) > 60 POC Glucose (mg/dL) Random Glucose 110 H Calcium 8.1 L Phosphorus 3.0 Magnesium 1.6 Total Bilirubin AST ALT Alkaline Phosphatase Total Protein Albumin Globulin Albumin/Globulin Ratio C. difficile Ag & Toxin Blood Type O POSITIVE Antibody Screen Negative Attending/Attestation - Attestation I have personally seen and examined this patient.: Yes I have fully participated in the care of the patient.: Yes I have reviewed all pertinent clinical information: Yes Notes (Text): 09/04/17 17:15 Patient seen and examined in the intensive care unit. Case discussed with house staff in the morning rounds Status post cardiac arrest and severe anoxic encephalopathy On ventilatory support Seen by neurology and started on Keppra Still myoclonic movement noted
[2017-09-04] MEDS ORDERED: Vancomycin 1 gm/NS 200 ml 1 GM/200 ML BAG IVPB ONE (16:00)
[2017-09-04 16:32] LABS: CHLORIDE 101 mmol/L (98-107); POTASSIUM 2.9 mmol/L (3.6-5.2); SODIUM 131 mmol/L (132-148)
[2017-09-04 16:34] LABS: GFR AFRICAN-AMERICAN > 60
[2017-09-04 16:35] LABS: BLOOD UREA NITROGEN 5 mg/dL (7-17); CALCIUM 8.1 mg/dl (8.6-10.4); CARBON DIOXIDE 21 mmol/L (22-30); GLUCOSE,RANDOM 110 mg/dL (65-105)
[2017-09-04 16:36] LABS: MAGNESIUM 1.6 mg/dL (1.6-2.3)
[2017-09-05] MEDS: Albuterol-Ipratrop 3 mg / 0.5 (3 ml) UD INH SCH ×3 (00:06→16:04)
--- NOTE | 2017-09-05 03:07 | PN ---
DATE: 09/04/2017 SUBJECTIVE: The patient is seen and examined at bedside. The patient's mental status remains the same, unresponsive, involuntary movements and jerky movements of the upper and lower extremities. PHYSICAL EXAMINATION: VITAL SIGNS: Blood pressure is 110/74, pulse 127, respirations 24, afebrile, O2 saturation 99% on 40% FiO2, 450 tidal volume. Intake is 3097, output is 510 mL. HEENT: Pupils sluggishly reacting to light, no icterus. Positive pallor. ET tube and gastric tube in oral cavity. NECK: Supple. LUNGS: Bilateral vesicular breath sounds. No wheezing. CARDIOVASCULAR SYSTEM: S1 and S2 present, regular, tachycardic. ABDOMEN: Soft. Bowel sounds present. CENTRAL NERVOUS SYSTEM: Unresponsive. Involuntary movements. EXTREMITIES: No edema. MEDICATIONS: Include DuoNeb, artificial tears, heparin 5000 units subcu q.12 hours, Keppra 1000 mg q.12 hours, midodrine 5 mg/hour, Protonix 40 mg IV push daily, propofol, and thiamine. LABORATORY DATA: Labs from this morning, WBC 7.6, hemoglobin 7.6, hematocrit 22, platelets 119. ABG on 40% FiO2; 450 tidal volume PEEP of 5, pH 7.51, pCO2 29, pO2 110, O2 saturation 90%. Sodium 131, potassium 2.9, chloride 101, bicarbonate 21, BUN 5, creatinine 0.4, glucose 110, calcium 8.1, phosphorus 3.0, and magnesium 1.6. Sputum culture, gram-positive cocci. ASSESSMENT AND PLAN: A young female with back problems, ethanol abuse, polysubstance abuse, wheelchair bound, admitted status post cardiac arrest, respiratory failure, hyponatremia, hypokalemia, hypophosphatemia, hypomagnesemia, multiple seizure activity, anoxic encephalopathy, and ventilator dependent. The patient has persistent electrolyte abnormalities. The patient is replaced with potassium and magnesium this morning. Received 1 unit of packed RBC and gave another gram of magnesium and 20 mEq of potassium. Repeat labs in a.m. Monitor neurologic status. Continue with vent support. Persistent sinus tachycardia. Continue with gastrointestinal and deep venous thrombosis prophylaxis. Prognosis is guarded. Condition is critical. Awaiting Palliative Care consult. We will discuss with the patient's family regarding DNR and terminal extubation status. We will continue to provide supportive care. Phoenix Caballero MD [facility] # [id number]
[2017-09-05 05:35] LABS: ABG ALLEN TEST POS; ABG MECHANICAL RATE 10; ARTERIAL BLOOD GAS MODE PRVC; ARTERIAL BLOOD HGB O2 SAT 94.9 % (95.0-98.0); ATERIAL BLOOD GAS PEEP 5; CARBOXYHEMOGLOBIN 2.8 % (0.5-1.5); DRAW SITE LR; HHB 1.2 % (0.0-5.0); METHEMOGLOBIN 1.1 % (0.0-3.0)
[2017-09-05] MEDS: Potassium & Sodium Phosphate NG SCH ×3 (06:05→17:32)
[2017-09-05 06:32] LABS: BASO % 0.2 % (0.0-2.0); EOS # 0.1 K/uL (0.0-0.7); EOS % 0.5 % (0.0-4.0); HEMATOCRIT 25.4 % (34.0-47.0); LYMPH # 0.7 K/uL (1.0-4.3); LYMPH % 6.2 % (20.0-40.0); MEAN CELL VOLUME 89.7 fL (81.0-99.0); MEAN CORPUSCULAR HEMOGLOBIN 30.7 pg (27.0-31.0); MEAN CORPUSCULAR HGB CONC 34.2 g/dL (33.0-37.0); MEAN PLATELET VOLUME 7.7 fL (7.2-11.7); MONO # 0.6 K/uL (0.0-0.8); MONO % 5.4 % (0.0-10.0); NRBC % 0.1 % (0.0-2.0); PLATELET COUNT 138 K/uL (130-400); RED CELL DISTRIBUTION WIDTH 16.8 % (11.5-14.5); WHITE BLOOD COUNT 11.1 K/uL (4.8-10.8)
[2017-09-05] MEDS: levETIRAcetam 1,000 MG in Sodium Chloride 0.9% 100 ML IVPB SCH ×2 (06:44→17:31)
[2017-09-05 06:50] LABS: CHLORIDE 102 mmol/L (98-107); POTASSIUM 3.1 mmol/L (3.6-5.2); SODIUM 134 mmol/L (132-148)
[2017-09-05 06:52] LABS: BILIRUBIN,TOTAL 2.5 mg/dL (0.2-1.3); GFR AFRICAN-AMERICAN > 60
[2017-09-05 06:53] LABS: ALB/GLOB RATIO 0.7 (1.0-2.1); ALKALINE PHOSPHATASE 156 U/L (38-126); ALT/SGPT 43 U/L (9-52); AST/SGOT 53 U/L (14-36); BLOOD UREA NITROGEN 4 mg/dL (7-17); CARBON DIOXIDE 22 mmol/L (22-30); GLUCOSE,RANDOM 84 mg/dL (65-105); PHOSPHOROUS 2.7 mg/dL (2.5-4.5); TOTAL PROTEIN 5.6 g/dL (6.3-8.3)
[2017-09-05 06:54] LABS: CALCIUM 8.6 mg/dl (8.6-10.4); MAGNESIUM 1.5 mg/dL (1.6-2.3)
--- NOTE | 2017-09-05 08:31 | RAD ---
HISTORY: intubated COMPARISON: Portable chest 09/04/2017. FINDINGS: Endotracheal and nasogastric tubes are unchanged in position as well as right central venous line. LUNGS: Diminishing left perihilar airspace disease appreciated with bilateral basilar patchy density remaining on a moderate basis. PLEURA: No significant pleural effusion identified, no pneumothorax apparent. CARDIOVASCULAR: Diminishing CHF pattern is identified with cardiac size remaining normal. OSSEOUS STRUCTURES: No significant abnormalities. VISUALIZED UPPER ABDOMEN: Normal. OTHER FINDINGS: None. IMPRESSION: Diminishing CHF and left perihilar airspace disease with residual bilateral basilar patchy infiltrate or atelectasis noted.
[2017-09-05 08:37] LABS: NEUTROPHIL 83 % (50-75); TOTAL CELLS COUNTED 100
[2017-09-05] MEDS: Propofol 10 mg/ml 1,000 MG/100 ML VIAL IV PRN ×2 (08:38→17:33)
[2017-09-05] MEDS: Magnesium Sulfate 1 gm in D5W 1 GM/100 ML BAG IVPB SCH ×2 (08:39→08:41)
[2017-09-05] MEDS ORDERED: Vancomycin 125 MG/5 ML SOLN (ORAL/RECTAL) PO SCH (10:00)
[2017-09-05] MEDS: Piperacill/Tazo 3.375gm in Dex 3.375 GM/50 ML BAG IVPB SCH ×3 (10:01→22:30)
[2017-09-05] MEDS: Thiamine 100 mg/ml Inj IV SCH (11:08)
[2017-09-05] MEDS: Midazolam 50 mg/10 ml 100 MG in Sodium Chloride 0.9% 80 ML IV SCH (11:22)
--- NOTE | 2017-09-05 11:27 | CP.PCM.PN ---
Subjective - Date & Time of Evaluation Date of Evaluation: 09/05/17 Time of Evaluation: 11:15 - Subjective Subjective: Progress note dictated #[id number] Objective - Vital Signs/Intake and Output Vital Signs (last 24 hours): Temp Pulse Resp BP Pulse Ox 97.7 F 113 H 18 113/73 100 09/05/17 08:00 09/05/17 10:00 09/05/17 10:00 09/05/17 09:22 09/05/17 10:00 Intake and Output: 09/05/17 09/05/17 06:59 18:59 Intake Total 2157.55 1112.0 Output Total 410 210 Balance 1747.55 902.0 - Medications Medications: Current Medications Albuterol/Ipratropium (Duoneb 3 Mg/0.5 Mg (3 Ml) Ud) 3 ml INH RQ8 EUSEBIO Last Admin: 09/05/17 07:30 Dose: 3 ml Artificial Tears (Lacri-Lube) 1 gm OS Q6H PRN PRN Reason: Sedation Last Admin: 09/04/17 12:27 Dose: 1 gm Midazolam HCl 100 mg/ Sodium (Chloride) 100 mls @ 5 mls/hr IV .Q20H EUSEBIO; 5 MG/ HR PRN Reason: Protocol Last Admin: 09/05/17 11:22 Dose: 5 mg/hr, 5 mls/hr Propofol (Diprivan) 1,000 mg in 100 mls @ 0.381 mls/hr IV .Q24H PRN; Protocol; 1 MCG/KG/MIN PRN Reason: TITRATE PER MD ORDER Last Admin: 09/05/17 08:38 Dose: 20 mcg/kg/min, 7.62 mls/hr Levetiracetam 1,000 mg/ Sodium (Chloride) 110 mls @ 420 mls/hr IVPB Q12H EUSEBIO Last Admin: 09/05/17 06:44 Dose: 420 mls/hr Potassium Chloride 20 meq/ (Sodium Chloride) 1,010 mls @ 125 mls/hr IV .Q8H5M EUSEBIO Last Admin: 09/05/17 06:41 Dose: 125 mls/hr Potassium Chloride (Potassium Chloride 10 Meq/100 Ml) 10 meq in 100 mls @ 100 mls/hr IVPB Q1H EUSEBIO Stop: 09/05/17 11:59 Last Admin: 09/05/17 11:09 Dose: 100 mls/hr Piperacillin Sod/Tazobactam Sod (Zosyn 3.375 Gm Iv Premix) 3.375 gm in 50 mls @ 100 mls/hr IVPB Q6H [facility] Last Admin: 09/05/17 10:01 Dose: 100 mls/hr Pantoprazole Sodium (Protonix Inj) 40 mg IVP DAILY [facility] Last Admin: 09/05/17 10:01 Dose: 40 mg Potassium Phos/Sodium Phos (Neutra-Phos) 1 pkt NG Q6 EUSEBIO Last Admin: 09/05/17 06:05 Dose: 1 pkt Thiamine HCl (Vitamin B1 Inj) 100 mg IV DAILY [facility] Last Admin: 09/05/17 11:08 Dose: 100 mg - Labs Labs: 09/05/17 06:20 09/05/17 06:17 PT 14.4 SECONDS (9.7-12.2) H 08/30/17 19:30 INR 1.3 08/30/17 19:30 APTT 28 SECONDS (21-34) 08/30/17 19:30
--- NOTE | 2017-09-05 14:10 | CP.CCUPN ---
<Liset Massey Phyllis - Last Filed: 09/05/17 13:58> CCU Subjective - Physician Review Subjective (Free Text): Patient seen and examined at bedside. Patient currently intubated. ROS unobtainable due to patient's current clinical status. CCU Objective - Vital Signs / Intake & Output Vital Signs (Last 4 hours): Vital Signs Temp Pulse Resp BP Pulse Ox 09/05/17 13:00 120 H 18 100 09/05/17 12:24 119 H 25 H 98/74 L 100 09/05/17 12:00 97.7 F 112 H 28 H 98 09/05/17 11:22 109 H 22 91/64 L 97 09/05/17 11:00 112 H 21 96 09/05/17 10:22 111 H 19 95/68 L 100 09/05/17 10:00 113 H 18 100 Intake and Output (Last 8hrs): Intake & Output 09/04/17 09/05/17 09/05/17 22:59 06:59 14:59 Intake Total 2009.2 1427.95 1762.0 Output Total 535 280 325 Balance 1474.2 1147.95 1437.0 Weight 169 lb Intake: IV 100 230 Intake, IV Amount 899.2 1167.95 1372.0 Right Distal Port 800 1068.75 875 Internal Jugular Right Internal Jugular 400 Right Medial Port 40 40 40 Internal Jugular Right Proximal Port 59.2 59.2 57.0 Internal Jugular Oral 100 Tube Feeding 160 160 160 Blood Product 650 Red Blood Cells Cpd As1 325 Lr Unit [id number] Other 200 Red Blood Cells Cpd As1 100 Lr Unit [id number] Output: Urine 235 280 325 Urethral (Andino) 235 280 325 Stool 300 - Physical Exam Head: Positive for: Atraumatic, Normocephalic Pupils: Positive for: Sluggish Extroacular Muscles: Negative for: EOMI Mouth: Positive for: Moist Mucous Membranes Respiratory/Chest: Positive for: Good Air Exchange, Other (intubated ) Cardiovascular: Positive for: Normal S1, S2, Tachycardic Abdomen: Positive for: Normal Bowel Sounds. Negative for: Distention Upper Extremity: Negative for: Edema Lower Extremity: Negative for: Edema Neurological: Negative for: GCS=15, Speech Normal Skin: Positive for: Normal Color Psychiatric: Negative for: Alert, Oriented x 3 - Medications Active Medications: Active Medications Generic Name Dose Route Start Last Admin Trade Name Freq PRN Reason Stop Dose Admin Albuterol/Ipratropium 3 ml 09/03/17 16:00 09/05/17 07:30 Duoneb 3 Mg/0.5 Mg (3 Ml) Ud INH 3 ml RQ8 EUSEBIO Administration Artificial Tears 1 gm 08/31/17 12:00 09/04/17 12:27 Lacri-Lube OS 1 gm Q6H PRN Administration Sedation Midazolam HCl 100 mg/ Sodium 100 mls @ 5 mls/hr 08/31/17 08:29 09/05/17 11:22 Chloride IV 5 mg/hr .Q20H EUSEBIO 5 mls/hr Protocol Administration 5 MG/HR Propofol 1,000 mg in 100 mls @ 0.381 mls/hr 08/31/17 11:11 09/05/17 11:47 Diprivan IV 16.53 mcg/kg/min .Q24H PRN 6.3 mls/hr TITRATE PER MD ORDER Titration Protocol 1 MCG/KG/MIN Levetiracetam 1,000 mg/ Sodium 110 mls @ 420 mls/hr 09/01/17 06:00 09/05/17 06:44 Chloride IVPB 420 mls/hr Q12H EUSEBIO Administration Potassium Chloride 20 meq/ 1,010 mls @ 125 mls/hr 09/04/17 09:57 09/05/17 06: 41 Sodium Chloride IV 125 mls/hr .Q8H5M EUSEBIO Administration Piperacillin Sod/Tazobactam Sod 3.375 gm in 50 mls @ 100 mls/hr 09/05/17 10: 30 09/05/17 10:01 Zosyn 3.375 Gm Iv Premix IVPB 100 mls/hr Q6H EUSEBIO Administration Pantoprazole Sodium 40 mg 08/31/17 10:00 09/05/17 10:01 Protonix Inj IVP 40 mg DAILY EUSEBIO Administration Potassium Phos/Sodium Phos 1 pkt 09/01/17 10:30 09/05/17 12:02 Neutra-Phos NG 1 pkt Q6 EUSEBIO Administration Thiamine HCl 100 mg 08/30/17 22:15 09/05/17 11:08 Vitamin B1 Inj IV 100 mg DAILY EUSEBIO Administration - Patient Studies Lab Studies: Microbiology Studies 09/03/17 17:51 Gram Stain - Final Sputum Sputum Culture - Final Methicillin Resistant S Aureus Lab Studies 09/05/17 09/05/17 09/05/17 Range/Units 12:03 06:20 06:17 WBC 11.1 H (4.8-10.8) K/uL RBC 2.84 L (3.80-5.20) Mil/uL Hgb 8.7 L (11.0-16.0) g/dL Hct 25.4 L (34.0-47.0) % MCV 89.7 (81.0-99.0) fL MCH 30.7 (27.0-31.0) pg MCHC 34.2 (33.0-37.0) g/dL RDW 16.8 H (11.5-14.5) % Plt Count 138 (130-400) K/uL MPV 7.7 (7.2-11.7) fL Neut % (Auto) 87.7 H (50.0-75.0) % Lymph % (Auto) 6.2 L (20.0-40.0) % [place] % (Auto) 5.4 (0.0-10.0) % Eos % (Auto) 0.5 (0.0-4.0) % Baso % (Auto) 0.2 (0.0-2.0) % Neut # 9.8 H (1.8-7.0) K/uL Lymph # 0.7 L (1.0-4.3) K/uL [place] # 0.6 (0.0-0.8) K/uL Eos # 0.1 (0.0-0.7) K/uL Baso # 0.0 (0.0-0.2) K/uL Neutrophils % (Manual) 83 H (50-75) % Band Neutrophils % 2 (0-2) % Lymphocytes % (Manual) 8 L (20-40) % Monocytes % (Manual) 7 (0-10) % Toxic Granulation Present Platelet Estimate Normal (NORMAL) Hypochromasia (manual) Slight Poikilocytosis (manual Slight Anisocytosis (manual) Slight Ovalocytes Slight Franco Cells Slight Puncture Site pCO2 (35-45) mm/Hg pO2 (80-100) mm/Hg HCO3 (21-28) mmol/L ABG pH (7.35-7.45) ABG Total CO2 (22-28) mmol/L ABG O2 Saturation (95-98) % ABG Base Excess (-2.0-3.0) mmol/L ABG Hemoglobin (11.7-17.4) g/dL ABG Carboxyhemoglobin (0.5-1.5) % POC ABG HHb (Measured) (0.0-5.0) % ABG Methemoglobin (0.0-3.0) % Stephen Test A-a O2 Difference mm/Hg Respiratory Index Hgb O2 Saturation (95.0-98.0) % Vent Mode Mechanical Rate FiO2 % Tidal Volume PEEP Sodium 134 (132-148) mmol/L Potassium 3.1 L (3.6-5.2) mmol/L Chloride 102 (98-107) mmol/L Carbon Dioxide 22 (22-30) mmol/L Anion Gap 13 (10-20) BUN 4 L (7-17) mg/dL Creatinine 0.3 L (0.7-1.2) mg/dL Est GFR ( Amer) > 60 Est GFR (Non-Af Amer) > 60 POC Glucose (mg/dL) 105 (65-110) mg/dL Random Glucose 84 (65-105) mg/dL Calcium 8.6 (8.6-10.4) mg/dl Phosphorus 2.7 (2.5-4.5) mg/dL Magnesium 1.5 L (1.6-2.3) mg/dL Total Bilirubin 2.5 H (0.2-1.3) mg/dL AST 53 H D (14-36) U/L ALT 43 (9-52) U/L Alkaline Phosphatase 156 H D (38-126) U/L Total Protein 5.6 L (6.3-8.3) g/dL Albumin 2.3 L (3.5-5.0) g/dL Globulin 3.3 (2.2-3.9) gm/dL Albumin/Globulin Ratio 0.7 L (1.0-2.1) Blood Type Antibody Screen 09/05/17 09/04/17 09/04/17 Range/Units 05:06 23:42 17:32 WBC (4.8-10.8) K/uL RBC (3.80-5.20) Mil/uL Hgb (11.0-16.0) g/dL Hct (34.0-47.0) % MCV (81.0-99.0) fL MCH (27.0-31.0) pg MCHC (33.0-37.0) g/dL RDW (11.5-14.5) % Plt Count (130-400) K/uL MPV (7.2-11.7) fL Neut % (Auto) (50.0-75.0) % Lymph % (Auto) (20.0-40.0) % [place] % (Auto) (0.0-10.0) % Eos % (Auto) (0.0-4.0) % Baso % (Auto) (0.0-2.0) % Neut # (1.8-7.0) K/uL Lymph # (1.0-4.3) K/uL [place] # (0.0-0.8) K/uL Eos # (0.0-0.7) K/uL Baso # (0.0-0.2) K/uL Neutrophils % (Manual) (50-75) % Band Neutrophils % (0-2) % Lymphocytes % (Manual) (20-40) % Monocytes % (Manual) (0-10) % Toxic Granulation Platelet Estimate (NORMAL) Hypochromasia (manual) Poikilocytosis (manual Anisocytosis (manual) Ovalocytes Lanett Cells Puncture Site Lr pCO2 35 (35-45) mm/Hg pO2 74 L (80-100) mm/Hg HCO3 24.3 (21-28) mmol/L ABG pH 7.43 (7.35-7.45) ABG Total CO2 24.3 (22-28) mmol/L ABG O2 Saturation 98.8 H (95-98) % ABG Base Excess -0.8 (-2.0-3.0) mmol/L ABG Hemoglobin 9.6 L (11.7-17.4) g/dL ABG Carboxyhemoglobin 2.8 H (0.5-1.5) % POC ABG HHb (Measured) 1.2 (0.0-5.0) % ABG Methemoglobin 1.1 (0.0-3.0) % Stephen Test Pos A-a O2 Difference 167.0 mm/Hg Respiratory Index 2.3 Hgb O2 Saturation 94.9 L (95.0-98.0) % Vent Mode Prvc Mechanical Rate 10 FiO2 40.0 % Tidal Volume 450 PEEP 5 Sodium (132-148) mmol/L Potassium (3.6-5.2) mmol/L Chloride (98-107) mmol/L Carbon Dioxide (22-30) mmol/L Anion Gap (10-20) BUN (7-17) mg/dL Creatinine (0.7-1.2) mg/dL Est GFR ( Amer) Est GFR (Non-Af Amer) POC Glucose (mg/dL) 119 H 106 (65-110) mg/dL Random Glucose (65-105) mg/dL Calcium (8.6-10.4) mg/dl Phosphorus (2.5-4.5) mg/dL Magnesium (1.6-2.3) mg/dL Total Bilirubin (0.2-1.3) mg/dL AST (14-36) U/L ALT (9-52) U/L Alkaline Phosphatase (38-126) U/L Total Protein (6.3-8.3) g/dL Albumin (3.5-5.0) g/dL Globulin (2.2-3.9) gm/dL Albumin/Globulin Ratio (1.0-2.1) Blood Type Antibody Screen 09/04/17 09/04/17 Range/Units 16:12 11:35 WBC (4.8-10.8) K/uL RBC (3.80-5.20) Mil/uL Hgb (11.0-16.0) g/dL Hct (34.0-47.0) % MCV (81.0-99.0) fL MCH (27.0-31.0) pg MCHC (33.0-37.0) g/dL RDW (11.5-14.5) % Plt Count (130-400) K/uL MPV (7.2-11.7) fL Neut % (Auto) (50.0-75.0) % Lymph % (Auto) (20.0-40.0) % [place] % (Auto) (0.0-10.0) % Eos % (Auto) (0.0-4.0) % Baso % (Auto) (0.0-2.0) % Neut # (1.8-7.0) K/uL Lymph # (1.0-4.3) K/uL [place] # (0.0-0.8) K/uL Eos # (0.0-0.7) K/uL Baso # (0.0-0.2) K/uL Neutrophils % (Manual) (50-75) % Band Neutrophils % (0-2) % Lymphocytes % (Manual) (20-40) % Monocytes % (Manual) (0-10) % Toxic Granulation Platelet Estimate (NORMAL) Hypochromasia (manual) Poikilocytosis (manual Anisocytosis (manual) Ovalocytes Franco Cells Puncture Site pCO2 (35-45) mm/Hg pO2 (80-100) mm/Hg HCO3 (21-28) mmol/L ABG pH (7.35-7.45) ABG Total CO2 (22-28) mmol/L ABG O2 Saturation (95-98) % ABG Base Excess (-2.0-3.0) mmol/L ABG Hemoglobin (11.7-17.4) g/dL ABG Carboxyhemoglobin (0.5-1.5) % POC ABG HHb (Measured) (0.0-5.0) % ABG Methemoglobin (0.0-3.0) % Stephen Test A-a O2 Difference mm/Hg Respiratory Index Hgb O2 Saturation (95.0-98.0) % Vent Mode Mechanical Rate FiO2 % Tidal Volume PEEP Sodium 131 L (132-148) mmol/L Potassium 2.9 L (3.6-5.2) mmol/L Chloride 101 (98-107) mmol/L Carbon Dioxide 21 L (22-30) mmol/L Anion Gap 12 (10-20) BUN 5 L (7-17) mg/dL Creatinine 0.4 L (0.7-1.2) mg/dL Est GFR ( Amer) > 60 Est GFR (Non-Af Amer) > 60 POC Glucose (mg/dL) (65-110) mg/dL Random Glucose 110 H (65-105) mg/dL Calcium 8.1 L (8.6-10.4) mg/dl Phosphorus 3.0 (2.5-4.5) mg/dL Magnesium 1.6 (1.6-2.3) mg/dL Total Bilirubin (0.2-1.3) mg/dL AST (14-36) U/L ALT (9-52) U/L Alkaline Phosphatase (38-126) U/L Total Protein (6.3-8.3) g/dL Albumin (3.5-5.0) g/dL Globulin (2.2-3.9) gm/dL Albumin/Globulin Ratio (1.0-2.1) Blood Type O POSITIVE Antibody Screen Negative Laboratory Results - last 24 hr 09/04/17 09/04/17 09/04/17 11:35 16:12 17:32 WBC RBC Hgb Hct MCV MCH MCHC RDW Plt Count MPV Neut % (Auto) Lymph % (Auto) [place] % (Auto) Eos % (Auto) Baso % (Auto) Neut # Lymph # [place] # Eos # Baso # Neutrophils % (Manual) Band Neutrophils % Lymphocytes % (Manual) Monocytes % (Manual) Toxic Granulation Platelet Estimate Hypochromasia (manual) Poikilocytosis (manual Anisocytosis (manual) Ovalocytes [place]ett Cells Puncture Site pCO2 pO2 HCO3 ABG pH ABG Total CO2 ABG O2 Saturation ABG Base Excess ABG Hemoglobin ABG Carboxyhemoglobin POC ABG HHb (Measured) ABG Methemoglobin Stephen Test A-a O2 Difference Respiratory Index Hgb O2 Saturation Vent Mode Mechanical Rate FiO2 Tidal Volume PEEP Sodium 131 L Potassium 2.9 L Chloride 101 Carbon Dioxide 21 L Anion Gap 12 BUN 5 L Creatinine 0.4 L Est GFR ( Amer) > 60 Est GFR (Non-Af Amer) > 60 POC Glucose (mg/dL) 106 Random Glucose 110 H Calcium 8.1 L Phosphorus 3.0 Magnesium 1.6 Total Bilirubin AST ALT Alkaline Phosphatase Total Protein Albumin Globulin Albumin/Globulin Ratio Blood Type O POSITIVE Antibody Screen Negative 09/04/17 09/05/17 09/05/17 23:42 05:06 06:17 WBC RBC Hgb Hct MCV MCH MCHC RDW Plt Count MPV Neut % (Auto) Lymph % (Auto) [place] % (Auto) Eos % (Auto) Baso % (Auto) Neut # Lymph # [place] # Eos # Baso # Neutrophils % (Manual) Band Neutrophils % Lymphocytes % (Manual) Monocytes % (Manual) Toxic Granulation Platelet Estimate Hypochromasia (manual) Poikilocytosis (manual Anisocytosis (manual) Ovalocytes Lanett Cells Puncture Site Lr pCO2 35 pO2 74 L HCO3 24.3 ABG pH 7.43 ABG Total CO2 24.3 ABG O2 Saturation 98.8 H ABG Base Excess -0.8 ABG Hemoglobin 9.6 L ABG Carboxyhemoglobin 2.8 H POC ABG HHb (Measured) 1.2 ABG Methemoglobin 1.1 Stephen Test Pos A-a O2 Difference 167.0 Respiratory Index 2.3 Hgb O2 Saturation 94.9 L Vent Mode Prvc Mechanical Rate 10 FiO2 40.0 Tidal Volume 450 PEEP 5 Sodium 134 Potassium 3.1 L Chloride 102 Carbon Dioxide 22 Anion Gap 13 BUN 4 L Creatinine 0.3 L Est GFR ( Amer) > 60 Est GFR (Non-Af Amer) > 60 POC Glucose (mg/dL) 119 H Random Glucose 84 Calcium 8.6 Phosphorus 2.7 Magnesium 1.5 L Total Bilirubin 2.5 H AST 53 H D ALT 43 Alkaline Phosphatase 156 H D Total Protein 5.6 L Albumin 2.3 L Globulin 3.3 Albumin/Globulin Ratio 0.7 L Blood Type Antibody Screen 09/05/17 09/05/17 06:20 12:03 WBC 11.1 H RBC 2.84 L Hgb 8.7 L Hct 25.4 L MCV 89.7 MCH 30.7 MCHC 34.2 RDW 16.8 H Plt Count 138 MPV 7.7 Neut % (Auto) 87.7 H Lymph % (Auto) 6.2 L [place] % (Auto) 5.4 Eos % (Auto) 0.5 Baso % (Auto) 0.2 Neut # 9.8 H Lymph # 0.7 L [place] # 0.6 Eos # 0.1 Baso # 0.0 Neutrophils % (Manual) 83 H Band Neutrophils % 2 Lymphocytes % (Manual) 8 L Monocytes % (Manual) 7 Toxic Granulation Present Platelet Estimate Normal Hypochromasia (manual) Slight Poikilocytosis (manual Slight Anisocytosis (manual) Slight Ovalocytes Slight Franco Cells Slight Puncture Site pCO2 pO2 HCO3 ABG pH ABG Total CO2 ABG O2 Saturation ABG Base Excess ABG Hemoglobin ABG Carboxyhemoglobin POC ABG HHb (Measured) ABG Methemoglobin Stephen Test A-a O2 Difference Respiratory Index Hgb O2 Saturation Vent Mode Mechanical Rate FiO2 Tidal Volume PEEP Sodium Potassium Chloride Carbon Dioxide Anion Gap BUN Creatinine Est GFR ( Amer) Est GFR (Non-Af Amer) POC Glucose (mg/dL) 105 Random Glucose Calcium Phosphorus Magnesium Total Bilirubin AST ALT Alkaline Phosphatase Total Protein Albumin Globulin Albumin/Globulin Ratio Blood Type Antibody Screen Fingerstick Blood Sugar Results: 105 Review of Systems - Review of Systems Systems not reviewed;Unavailable: Intubated Assessment/Plan - Assessment and Plan (Free Text) Assessment: 36 year old female with past medical history of anemia and alcohol abuse, who was found unconscious by . EMS was called and patient was found to be in Asystole, ACLS protocol was initiated and 2 rounds of epinephrine and then ROSC. Patient was unconscious in the ED. Subsequently, patient was admitted to the ICU and hypothermia protocol was initiated. Plan: Neuro: Intubated, Acute seizures Neurologist, Dr. Pugh---> help appreciated * Management as per recommendation Medication/Management: * Keppra 500mg IV Q12H * Versed drip * Propofol 1,000mg in 100ml IV 1mcg/kg/min (Titratable) Imaging: * EEG (08/31/17): globally abnormal EEG because of persistent spike and wave activities consistent with status epilepticus. Please correlate the findings with neurological and radiological studies * Cerebral blood flow (09/03/17): does not conform to nuclear medicine diagnosis of brain . There is a faint cerebral flow, the study is considered technically suboptimal for reasons related to technique and poor visualization of carotid arteries. * CT head w/o contrast (09/03/17): No mass effect or edema. No atrophy or chronic microvascular. Cardio: Cardiopulmonary Arrest Management: * Intubated * Hypothermia protocol was initiated Pulm: Respiratory distress secondary to cardiac arrest Management: * Intubated * sputum culture: MRSA * Zosyn 3.375 gm q6h GI: Diarrhea * C. Dif negative Renal: Hyponatremia Nephrology, Dr. Ramos---> Help appreciated * Management as per recommendation * Potassium and Magnesium repleted Psych: Alcohol abuse disorder * Thiamine 100mg IV daily * Psychiatric consult once patient is clinically stable Prophylaxis measures: * R IJ in place * DVT: SCDs, Heparin 5,000units SC Q12H * GI: Protonix 40mg IV daily * NS @ 125cc/hr <Burton Walters S - Last Filed: 09/05/17 16:58> CCU Objective - Vital Signs / Intake & Output Vital Signs (Last 4 hours): Vital Signs Temp Pulse Resp BP Pulse Ox 09/05/17 16:00 98.1 F 127 H 26 H 99 09/05/17 15:22 123 H 22 104/68 99 09/05/17 15:00 121 H 22 97 09/05/17 14:22 121 H 22 92/69 L 98 09/05/17 14:00 117 H 20 99 09/05/17 13:22 118 H 20 110/71 100 09/05/17 13:00 120 H 18 100 Intake and Output (Last 8hrs): Intake & Output 09/05/17 09/05/17 09/05/17 06:59 14:59 22:59 Intake Total 1427.95 1898.3 312.6 Output Total 280 360 100 Balance 1147.95 1538.3 212.6 Intake: IV 230 Intake, IV Amount 1167.95 1508.3 272.6 Right Distal Port 1068.75 1000 250 Internal Jugular Right Internal Jugular 400 Right Medial Port 40 45 10 Internal Jugular Right Proximal Port 59.2 63.3 12.6 Internal Jugular Oral 100 Tube Feeding 160 160 40 Output: Urine 280 360 100 Urethral (Andino) 280 360 100 - Medications Active Medications: Active Medications Generic Name Dose Route Start Last Admin Trade Name Freq PRN Reason Stop Dose Admin Albuterol/Ipratropium 3 ml 09/03/17 16:00 09/05/17 16:04 Duoneb 3 Mg/0.5 Mg (3 Ml) Ud INH 3 ml RQ8 EUSEBIO Administration Artificial Tears 1 gm 08/31/17 12:00 09/04/17 12:27 Lacri-Lube OS 1 gm Q6H PRN Administration Sedation Midazolam HCl 100 mg/ Sodium 100 mls @ 5 mls/hr 08/31/17 08:29 09/05/17 11:22 Chloride IV 5 mg/hr .Q20H EUSEBIO 5 mls/hr Protocol Administration 5 MG/HR Levetiracetam 1,000 mg/ Sodium 110 mls @ 420 mls/hr 09/01/17 06:00 09/05/17 06:44 Chloride IVPB 420 mls/hr Q12H EUSEBIO Administration Potassium Chloride 20 meq/ 1,010 mls @ 125 mls/hr 09/04/17 09:57 09/05/17 15: 53 Sodium Chloride IV Not Given .Q8H5M EUSEBIO Piperacillin Sod/Tazobactam Sod 3.375 gm in 50 mls @ 100 mls/hr 09/05/17 10: 30 09/05/17 16:47 Zosyn 3.375 Gm Iv Premix IVPB 100 mls/hr Q6H EUSEBIO Administration Propofol 1,000 mg in 100 mls @ 2.3 mls/hr 09/05/17 15:59 Diprivan IV .Q24H PRN TITRATE PER MD ORDER Protocol 5 MCG/KG/MIN Pantoprazole Sodium 40 mg 08/31/17 10:00 09/05/17 10:01 Protonix Inj IVP 40 mg DAILY EUSEBIO Administration Potassium Phos/Sodium Phos 1 pkt 09/01/17 10:30 09/05/17 12:02 Neutra-Phos NG 1 pkt Q6 EUSEBIO Administration Thiamine HCl 100 mg 08/30/17 22:15 09/05/17 11:08 Vitamin B1 Inj IV 100 mg DAILY EUSEBIO Administration - Patient Studies Lab Studies: Microbiology Studies 09/03/17 17:51 Gram Stain - Final Sputum Sputum Culture - Final Methicillin Resistant S Aureus Lab Studies 09/05/17 09/05/17 09/05/17 Range/Units 12:03 06:20 06:17 WBC 11.1 H (4.8-10.8) K/uL RBC 2.84 L (3.80-5.20) Mil/uL Hgb 8.7 L (11.0-16.0) g/dL Hct 25.4 L (34.0-47.0) % MCV 89.7 (81.0-99.0) fL MCH 30.7 (27.0-31.0) pg MCHC 34.2 (33.0-37.0) g/dL RDW 16.8 H (11.5-14.5) % Plt Count 138 (130-400) K/uL MPV 7.7 (7.2-11.7) fL Neut % (Auto) 87.7 H (50.0-75.0) % Lymph % (Auto) 6.2 L (20.0-40.0) % [place] % (Auto) 5.4 (0.0-10.0) % Eos % (Auto) 0.5 (0.0-4.0) % Baso % (Auto) 0.2 (0.0-2.0) % Neut # 9.8 H (1.8-7.0) K/uL Lymph # 0.7 L (1.0-4.3) K/uL [place] # 0.6 (0.0-0.8) K/uL Eos # 0.1 (0.0-0.7) K/uL Baso # 0.0 (0.0-0.2) K/uL Neutrophils % (Manual) 83 H (50-75) % Band Neutrophils % 2 (0-2) % Lymphocytes % (Manual) 8 L (20-40) % Monocytes % (Manual) 7 (0-10) % Toxic Granulation Present Platelet Estimate Normal (NORMAL) Hypochromasia (manual) Slight Poikilocytosis (manual Slight Anisocytosis (manual) Slight Ovalocytes Slight Franco Cells Slight Puncture Site pCO2 (35-45) mm/Hg pO2 (80-100) mm/Hg HCO3 (21-28) mmol/L ABG pH (7.35-7.45) ABG Total CO2 (22-28) mmol/L ABG O2 Saturation (95-98) % ABG Base Excess (-2.0-3.0) mmol/L ABG Hemoglobin (11.7-17.4) g/dL ABG Carboxyhemoglobin (0.5-1.5) % POC ABG HHb (Measured) (0.0-5.0) % ABG Methemoglobin (0.0-3.0) % Stephen Test A-a O2 Difference mm/Hg Respiratory Index Hgb O2 Saturation (95.0-98.0) % Vent Mode Mechanical Rate FiO2 % Tidal Volume PEEP Sodium 134 (132-148) mmol/L Potassium 3.1 L (3.6-5.2) mmol/L Chloride 102 (98-107) mmol/L Carbon Dioxide 22 (22-30) mmol/L Anion Gap 13 (10-20) BUN 4 L (7-17) mg/dL Creatinine 0.3 L (0.7-1.2) mg/dL Est GFR ( Amer) > 60 Est GFR (Non-Af Amer) > 60 POC Glucose (mg/dL) 105 (65-110) mg/dL Random Glucose 84 (65-105) mg/dL Calcium 8.6 (8.6-10.4) mg/dl Phosphorus 2.7 (2.5-4.5) mg/dL Magnesium 1.5 L (1.6-2.3) mg/dL Total Bilirubin 2.5 H (0.2-1.3) mg/dL AST 53 H D (14-36) U/L ALT 43 (9-52) U/L Alkaline Phosphatase 156 H D (38-126) U/L Total Protein 5.6 L (6.3-8.3) g/dL Albumin 2.3 L (3.5-5.0) g/dL Globulin 3.3 (2.2-3.9) gm/dL Albumin/Globulin Ratio 0.7 L (1.0-2.1) 09/05/17 09/04/17 09/04/17 Range/Units 05:06 23:42 17:32 WBC (4.8-10.8) K/uL RBC (3.80-5.20) Mil/uL Hgb (11.0-16.0) g/dL Hct (34.0-47.0) % MCV (81.0-99.0) fL MCH (27.0-31.0) pg MCHC (33.0-37.0) g/dL RDW (11.5-14.5) % Plt Count (130-400) K/uL MPV (7.2-11.7) fL Neut % (Auto) (50.0-75.0) % Lymph % (Auto) (20.0-40.0) % [place] % (Auto) (0.0-10.0) % Eos % (Auto) (0.0-4.0) % Baso % (Auto) (0.0-2.0) % Neut # (1.8-7.0) K/uL Lymph # (1.0-4.3) K/uL [place] # (0.0-0.8) K/uL Eos # (0.0-0.7) K/uL Baso # (0.0-0.2) K/uL Neutrophils % (Manual) (50-75) % Band Neutrophils % (0-2) % Lymphocytes % (Manual) (20-40) % Monocytes % (Manual) (0-10) % Toxic Granulation Platelet Estimate (NORMAL) Hypochromasia (manual) Poikilocytosis (manual Anisocytosis (manual) Ovalocytes Franco Cells Puncture Site Lr pCO2 35 (35-45) mm/Hg pO2 74 L (80-100) mm/Hg HCO3 24.3 (21-28) mmol/L ABG pH 7.43 (7.35-7.45) ABG Total CO2 24.3 (22-28) mmol/L ABG O2 Saturation 98.8 H (95-98) % ABG Base Excess -0.8 (-2.0-3.0) mmol/L ABG Hemoglobin 9.6 L (11.7-17.4) g/dL ABG Carboxyhemoglobin 2.8 H (0.5-1.5) % POC ABG HHb (Measured) 1.2 (0.0-5.0) % ABG Methemoglobin 1.1 (0.0-3.0) % Stephen Test Pos A-a O2 Difference 167.0 mm/Hg Respiratory Index 2.3 Hgb O2 Saturation 94.9 L (95.0-98.0) % Vent Mode Prvc Mechanical Rate 10 FiO2 40.0 % Tidal Volume 450 PEEP 5 Sodium (132-148) mmol/L Potassium (3.6-5.2) mmol/L Chloride (98-107) mmol/L Carbon Dioxide (22-30) mmol/L Anion Gap (10-20) BUN (7-17) mg/dL Creatinine (0.7-1.2) mg/dL Est GFR ( Amer) Est GFR (Non-Af Amer) POC Glucose (mg/dL) 119 H 106 (65-110) mg/dL Random Glucose (65-105) mg/dL Calcium (8.6-10.4) mg/dl Phosphorus (2.5-4.5) mg/dL Magnesium (1.6-2.3) mg/dL Total Bilirubin (0.2-1.3) mg/dL AST (14-36) U/L ALT (9-52) U/L Alkaline Phosphatase (38-126) U/L Total Protein (6.3-8.3) g/dL Albumin (3.5-5.0) g/dL Globulin (2.2-3.9) gm/dL Albumin/Globulin Ratio (1.0-2.1) Laboratory Results - last 24 hr 09/04/17 09/04/17 09/05/17 17:32 23:42 05:06 WBC RBC Hgb Hct MCV MCH MCHC RDW Plt Count MPV Neut % (Auto) Lymph % (Auto) [place] % (Auto) Eos % (Auto) Baso % (Auto) Neut # Lymph # [place] # Eos # Baso # Neutrophils % (Manual) Band Neutrophils % Lymphocytes % (Manual) Monocytes % (Manual) Toxic Granulation Platelet Estimate Hypochromasia (manual) Poikilocytosis (manual Anisocytosis (manual) Ovalocytes Franco Cells Puncture Site Lr pCO2 35 pO2 74 L HCO3 24.3 ABG pH 7.43 ABG Total CO2 24.3 ABG O2 Saturation 98.8 H ABG Base Excess -0.8 ABG Hemoglobin 9.6 L ABG Carboxyhemoglobin 2.8 H POC ABG HHb (Measured) 1.2 ABG Methemoglobin 1.1 Stephen Test Pos A-a O2 Difference 167.0 Respiratory Index 2.3 Hgb O2 Saturation 94.9 L Vent Mode Prvc Mechanical Rate 10 FiO2 40.0 Tidal Volume 450 PEEP 5 Sodium Potassium Chloride Carbon Dioxide Anion Gap BUN Creatinine Est GFR ( Amer) Est GFR (Non-Af Amer) POC Glucose (mg/dL) 106 119 H Random Glucose Calcium Phosphorus Magnesium Total Bilirubin AST ALT Alkaline Phosphatase Total Protein Albumin Globulin Albumin/Globulin Ratio 09/05/17 09/05/17 09/05/17 06:17 06:20 12:03 WBC 11.1 H RBC 2.84 L Hgb 8.7 L Hct 25.4 L MCV 89.7 MCH 30.7 MCHC 34.2 RDW 16.8 H Plt Count 138 MPV 7.7 Neut % (Auto) 87.7 H Lymph % (Auto) 6.2 L [place] % (Auto) 5.4 Eos % (Auto) 0.5 Baso % (Auto) 0.2 Neut # 9.8 H Lymph # 0.7 L [place] # 0.6 Eos # 0.1 Baso # 0.0 Neutrophils % (Manual) 83 H Band Neutrophils % 2 Lymphocytes % (Manual) 8 L Monocytes % (Manual) 7 Toxic Granulation Present Platelet Estimate Normal Hypochromasia (manual) Slight Poikilocytosis (manual Slight Anisocytosis (manual) Slight Ovalocytes Slight Franco Cells Slight Puncture Site pCO2 pO2 HCO3 ABG pH ABG Total CO2 ABG O2 Saturation ABG Base Excess ABG Hemoglobin ABG Carboxyhemoglobin POC ABG HHb (Measured) ABG Methemoglobin Stephen Test A-a O2 Difference Respiratory Index Hgb O2 Saturation Vent Mode Mechanical Rate FiO2 Tidal Volume PEEP Sodium 134 Potassium 3.1 L Chloride 102 Carbon Dioxide 22 Anion Gap 13 BUN 4 L Creatinine 0.3 L Est GFR ( Amer) > 60 Est GFR (Non-Af Amer) > 60 POC Glucose (mg/dL) 105 Random Glucose 84 Calcium 8.6 Phosphorus 2.7 Magnesium 1.5 L Total Bilirubin 2.5 H AST 53 H D ALT 43 Alkaline Phosphatase 156 H D Total Protein 5.6 L Albumin 2.3 L Globulin 3.3 Albumin/Globulin Ratio 0.7 L Attending/Attestation - Attestation I have personally seen and examined this patient.: Yes I have fully participated in the care of the patient.: Yes I have reviewed all pertinent clinical information: Yes Notes (Text): 09/05/17 16:56 Patient seen and examined in the intensive care unit. Case discussed with staff in the morning rounds. No change in mental status and with myoclonic activity Triggering off ventilator noted but very weak gag and corneal reflexes On antibiotics Prognosis poor Neurology follow-up
[2017-09-05] MEDS ORDERED: Potassium Chloride 20 mEq/15 ml LIQ UD PO ONE (14:15)
--- NOTE | 2017-09-05 15:29 | CP.PCM.PN ---
Subjective - Date & Time of Evaluation Date of Evaluation: 09/05/17 Time of Evaluation: 15:28 - Subjective Subjective: renal follow up note intubated Seen and examined VS reviewed Gen: intubated and sedated sclera: anicteric op: et tube cv: +S1+s2 lungs coarse mechanical bs abd soft ext trace edema neuro: sedated psych: sedated skin: no rash imp: Hyponatremia/ Hypokalemia / Etoh abuse/ VDRF / Anoxic brain injury / hypomagnesemia / hypophosphatemia plan: renal function is steady replace lytes per icu neuro on board for brain flow assessment phos better today, continue replacement discussed with ICU attending; poor overall prognosis. Objective - Vital Signs/Intake and Output Vital Signs (last 24 hours): Temp Pulse Resp BP Pulse Ox 97.7 F 121 H 22 92/69 L 97 09/05/17 12:00 09/05/17 15:00 09/05/17 15:00 09/05/17 14:22 09/05/17 15:00 Intake and Output: 09/05/17 09/05/17 06:59 18:59 Intake Total 2157.55 2054.6 Output Total 410 400 Balance 1747.55 1654.6 - Medications Medications: Current Medications Albuterol/Ipratropium (Duoneb 3 Mg/0.5 Mg (3 Ml) Ud) 3 ml INH RQ8 EUSEBIO Last Admin: 09/05/17 07:30 Dose: 3 ml Artificial Tears (Lacri-Lube) 1 gm OS Q6H PRN PRN Reason: Sedation Last Admin: 09/04/17 12:27 Dose: 1 gm Midazolam HCl 100 mg/ Sodium (Chloride) 100 mls @ 5 mls/hr IV .Q20H EUSEBIO; 5 MG/ HR PRN Reason: Protocol Last Admin: 09/05/17 11:22 Dose: 5 mg/hr, 5 mls/hr Propofol (Diprivan) 1,000 mg in 100 mls @ 0.381 mls/hr IV .Q24H PRN; Protocol; 1 MCG/KG/MIN PRN Reason: TITRATE PER MD ORDER Last Titration: 09/05/17 11:47 Dose: 16.53 mcg/kg/min, 6.3 mls/hr Levetiracetam 1,000 mg/ Sodium (Chloride) 110 mls @ 420 mls/hr IVPB Q12H [facility] Last Admin: 09/05/17 06:44 Dose: 420 mls/hr Potassium Chloride 20 meq/ (Sodium Chloride) 1,010 mls @ 125 mls/hr IV .Q8H5M [facility] Last Admin: 09/05/17 06:41 Dose: 125 mls/hr Piperacillin Sod/Tazobactam Sod (Zosyn 3.375 Gm Iv Premix) 3.375 gm in 50 mls @ 100 mls/hr IVPB Q6H [facility] Last Admin: 09/05/17 10:01 Dose: 100 mls/hr Pantoprazole Sodium (Protonix Inj) 40 mg IVP DAILY [facility] Last Admin: 09/05/17 10:01 Dose: 40 mg Potassium Phos/Sodium Phos (Neutra-Phos) 1 pkt NG Q6 [facility] Last Admin: 09/05/17 12:02 Dose: 1 pkt Thiamine HCl (Vitamin B1 Inj) 100 mg IV DAILY [facility] Last Admin: 09/05/17 11:08 Dose: 100 mg - Labs Labs: 09/05/17 06:20 09/05/17 06:17 PT 14.4 SECONDS (9.7-12.2) H 08/30/17 19:30 INR 1.3 08/30/17 19:30 APTT 28 SECONDS (21-34) 08/30/17 19:30
--- NOTE | 2017-09-05 23:28 | PN ---
DATE: 09/05/2017 SUBJECTIVE: The patient is seen and examined at bedside. The patient is still unresponsive, no change in her mental status, vent dependent. PHYSICAL EXAMINATION: VITAL SIGNS: Blood pressure is 96/61, pulse 132, respirations 22, and O2 saturation 97% on 40% FiO2 with tidal volume 450, set rate of 14 and PEEP of 5. Intake is 5231 and output is 1220. HEENT: Pupils sluggishly reacting to light, no icterus. Positive pallor. ET tube and gastric tube in the oral cavity. NECK: Supple. LUNGS: Bilateral vesicular breath sounds. Bilateral basal crackles heard. CARDIOVASCULAR SYSTEM: S1 and S2 present, regular, tachycardic. ABDOMEN: Soft. Bowel sounds present. CENTRAL NERVOUS SYSTEM: Sedated, unresponsive. Involuntary movements and mild twitching. EXTREMITIES: No edema. Palpable peripheral pulses. MEDICATIONS: Include DuoNeb, artificial tears, Keppra 1 g q. 12 hours, Versed 5 mg per hour, Protonix 40 mg daily, Zosyn 3.375 g IV q. 6 hours, IV fluids 20 mEq of KCl at 125 mL an hour, Diprivan, and thiamine 100 mg IV daily. LABORATORY DATA: Labs from this morning, WBC 11.1, hemoglobin 8.7, hematocrit 25.4, and platelets 138. ABG on 40% FiO2; pH 7.43, pCO2 of 35, and pO2 of 74. Sodium 134, potassium 3.1, chloride 102, bicarbonate 22, BUN 4, creatinine 0.3, glucose 84, phosphorous 2.7 and magnesium 1.5. Total bilirubin 2.5, AST 53, ALT 43, and alkaline phosphatase 156. Sputum culture, MRSA positive. ASSESSMENT AND PLAN: A young female with ethanol abuse, back problems, substance abuse, wheelchair bound, admitted for status post cardiac arrest, respiratory failure, ventilator dependent, multiple electrolyte abnormalities, seizures, multiple, sputum methicillin-resistant Staphylococcus aureus positive. Neurological status remains with the same. The patient's family requesting for repeat protocol for brain duct evaluation as per Palliative Care RN. Continue with ventilator support on 40% FiO2. The patient received one dose of vancomycin and the patient is started n Zosyn this morning. We will continue multiple anti-seizure medications. Follow up with Neurology. Continue with supportive care. Potassium and phosphorus are being replaced. We will follow up with the patient's family for further care and regarding DNR status. The patient's condition is critical. Prognosis is guarded. Phoenix Caballero MD
[2017-09-06] MEDS: Potassium & Sodium Phosphate NG SCH ×4 (00:43→17:06)
[2017-09-06 01:23] LABS: ACETONE None Detected; ETHANOL None Detected; METHANOL None Detected
[2017-09-06] MEDS: Piperacill/Tazo 3.375gm in Dex 3.375 GM/50 ML BAG IVPB SCH ×4 (04:31→22:16)
[2017-09-06 05:36] LABS: ABG ALLEN TEST POS; ABG MECHANICAL RATE 10; ARTERIAL BLOOD GAS MODE PRVC; ARTERIAL BLOOD HGB O2 SAT 93.5 % (95.0-98.0); ATERIAL BLOOD GAS PEEP 5; CARBOXYHEMOGLOBIN 2.3 % (0.5-1.5); DRAW SITE LR; HHB 3.4 % (0.0-5.0); METHEMOGLOBIN 0.8 % (0.0-3.0)
[2017-09-06] MEDS: levETIRAcetam 1,000 MG in Sodium Chloride 0.9% 100 ML IVPB SCH (05:53)
[2017-09-06] MEDS: Midazolam 50 mg/10 ml 100 MG in Sodium Chloride 0.9% 80 ML IV SCH ×2 (05:58→21:16)
[2017-09-06 06:30] LABS: BASO % 0.1 % (0.0-2.0); EOS # 0.2 K/uL (0.0-0.7); EOS % 1.2 % (0.0-4.0); HEMATOCRIT 24.4 % (34.0-47.0); LYMPH # 0.8 K/uL (1.0-4.3); LYMPH % 5.9 % (20.0-40.0); MEAN CELL VOLUME 90.1 fL (81.0-99.0); MEAN CORPUSCULAR HEMOGLOBIN 31.2 pg (27.0-31.0); MEAN CORPUSCULAR HGB CONC 34.7 g/dL (33.0-37.0); MONO # 0.6 K/uL (0.0-0.8); MONO % 4.3 % (0.0-10.0); PLATELET COUNT 130 K/uL (130-400); RED CELL DISTRIBUTION WIDTH 16.4 % (11.5-14.5); WHITE BLOOD COUNT 13.3 K/uL (4.8-10.8)
[2017-09-06 06:34] LABS: CHLORIDE 103 mmol/L (98-107); POTASSIUM 3.8 mmol/L (3.6-5.2); SODIUM 132 mmol/L (132-148)
[2017-09-06 06:36] LABS: ALB/GLOB RATIO 0.7 (1.0-2.1); ALKALINE PHOSPHATASE 138 U/L (38-126); AST/SGOT 37 U/L (14-36); BILIRUBIN,TOTAL 2.4 mg/dL (0.2-1.3); BLOOD UREA NITROGEN 4 mg/dL (7-17); CARBON DIOXIDE 21 mmol/L (22-30); GFR AFRICAN-AMERICAN > 60; TOTAL PROTEIN 5.7 g/dL (6.3-8.3)
[2017-09-06 06:37] LABS: ALT/SGPT 34 U/L (9-52); GLUCOSE,RANDOM 105 mg/dL (65-105); MAGNESIUM 1.5 mg/dL (1.6-2.3); PHOSPHOROUS 2.6 mg/dL (2.5-4.5)
[2017-09-06] MEDS: Albuterol-Ipratrop 3 mg / 0.5 (3 ml) UD INH SCH ×4 (07:22→23:51)
[2017-09-06] MEDS: Propofol 10 mg/ml 1,000 MG/100 ML VIAL IV PRN ×2 (07:30→19:59)
--- NOTE | 2017-09-06 08:28 | CP.CCUPN ---
<Jimbo Pete - Last Filed: 09/06/17 16:59> CCU Objective - Vital Signs / Intake & Output Vital Signs (Last 4 hours): Vital Signs Temp Pulse Resp BP Pulse Ox 09/06/17 16:00 98.3 F 127 H 22 100 09/06/17 15:22 128 H 23 94/60 L 99 09/06/17 15:00 127 H 22 99 09/06/17 14:22 130 H 27 H 100/63 98 09/06/17 14:00 127 H 22 100 09/06/17 13:22 120 H 23 101/64 99 09/06/17 13:00 119 H 23 99 Intake and Output (Last 8hrs): Intake & Output 09/06/17 09/06/17 09/06/17 06:59 14:59 22:59 Intake Total 1494.15 1358.4 70.6 Output Total 775 700 100 Balance 719.15 658.4 -29.4 Weight 180 lb 8 oz 180 lb Intake: IV 100 118 Intake, IV Amount 1134.15 1030.4 30.6 Right Distal Port 1043.75 725 Internal Jugular Right Internal Jugular 200 Right Medial Port 40 49 16 Internal Jugular Right Proximal Port 50.4 56.4 14.6 Internal Jugular Oral 100 Tube Feeding 160 160 40 Other 50 Output: Urine 775 600 100 Urethral (Andino) 775 600 100 Stool 100 - Medications Active Medications: Active Medications Generic Name Dose Route Start Last Admin Trade Name Freq PRN Reason Stop Dose Admin Albuterol/Ipratropium 3 ml 09/03/17 16:00 09/06/17 15:57 Duoneb 3 Mg/0.5 Mg (3 Ml) Ud INH 3 ml RQ8 EUSEBIO Administration Artificial Tears 1 gm 08/31/17 12:00 09/04/17 12:27 Lacri-Lube OS 1 gm Q6H PRN Administration Sedation Midazolam HCl 100 mg/ Sodium 100 mls @ 5 mls/hr 08/31/17 08:29 09/06/17 11:14 Chloride IV 8 mg/hr .Q20H EUSEBIO 8 mls/hr Protocol Titration 5 MG/HR Piperacillin Sod/Tazobactam Sod 3.375 gm in 50 mls @ 100 mls/hr 09/05/17 10: 30 09/06/17 09:31 Zosyn 3.375 Gm Iv Premix IVPB 100 mls/hr Q6H EUSEBIO Administration Propofol 1,000 mg in 100 mls @ 2.3 mls/hr 09/05/17 15:59 09/06/17 07:30 Diprivan IV 16 mcg/kg/min .Q24H PRN 7.359 mls/hr TITRATE PER MD ORDER Administration Protocol 5 MCG/KG/MIN Levetiracetam 1,000 mg/ 110 mls @ 420 mls/hr 09/06/17 18:00 Dextrose IVPB Q12H EUSEBIO Pantoprazole Sodium 40 mg 08/31/17 10:00 09/06/17 09:31 Protonix Inj IVP 40 mg DAILY EUSEBIO Administration Potassium Chloride 20 meq 09/06/17 11:30 09/06/17 12:06 K-Dur 20 Meq Er Tab PO 20 meq BID EUSEBIO Administration Potassium Phos/Sodium Phos 1 pkt 09/01/17 10:30 09/06/17 11:14 Neutra-Phos NG 1 pkt Q6 EUSEBIO Administration Thiamine HCl 100 mg 08/30/17 22:15 09/06/17 09:32 Vitamin B1 Inj IV 100 mg DAILY EUSEBIO Administration - Patient Studies Lab Studies: Lab Studies 09/06/17 09/06/17 09/06/17 Range/Units 11:15 06:20 06:18 WBC 13.3 H (4.8-10.8) K/uL RBC 2.71 L (3.80-5.20) Mil/uL Hgb 8.5 L (11.0-16.0) g/dL Hct 24.4 L (34.0-47.0) % MCV 90.1 (81.0-99.0) fL MCH 31.2 H (27.0-31.0) pg MCHC 34.7 (33.0-37.0) g/dL RDW 16.4 H (11.5-14.5) % Plt Count 130 (130-400) K/uL MPV 8.0 (7.2-11.7) fL Neut % (Auto) 88.5 H (50.0-75.0) % Lymph % (Auto) 5.9 L (20.0-40.0) % [place] % (Auto) 4.3 (0.0-10.0) % Eos % (Auto) 1.2 (0.0-4.0) % Baso % (Auto) 0.1 (0.0-2.0) % Neut # 11.7 H (1.8-7.0) K/uL Lymph # 0.8 L (1.0-4.3) K/uL [place] # 0.6 (0.0-0.8) K/uL Eos # 0.2 (0.0-0.7) K/uL Baso # 0.0 (0.0-0.2) K/uL Neutrophils % (Manual) 88 H (50-75) % Lymphocytes % (Manual) 9 L (20-40) % Monocytes % (Manual) 3 (0-10) % Platelet Estimate Normal (NORMAL) Hypochromasia (manual) Moderate Poikilocytosis (manual Slight Anisocytosis (manual) Slight Microcytosis (manual) Slight Target Cells Slight Ovalocytes Slight [place] Cells Slight Puncture Site pCO2 (35-45) mm/Hg pO2 (80-100) mm/Hg HCO3 (21-28) mmol/L ABG pH (7.35-7.45) ABG Total CO2 (22-28) mmol/L ABG O2 Saturation (95-98) % ABG Base Excess (-2.0-3.0) mmol/L ABG Hemoglobin (11.7-17.4) g/dL ABG Carboxyhemoglobin (0.5-1.5) % POC ABG HHb (Measured) (0.0-5.0) % ABG Methemoglobin (0.0-3.0) % Stephen Test A-a O2 Difference mm/Hg Respiratory Index Hgb O2 Saturation (95.0-98.0) % Vent Mode Mechanical Rate FiO2 % Tidal Volume PEEP Sodium 132 (132-148) mmol/L Potassium 3.8 (3.6-5.2) mmol/L Chloride 103 (98-107) mmol/L Carbon Dioxide 21 L (22-30) mmol/L Anion Gap 12 (10-20) BUN 4 L (7-17) mg/dL Creatinine 0.3 L (0.7-1.2) mg/dL Est GFR ( Amer) > 60 Est GFR (Non-Af Amer) > 60 POC Glucose (mg/dL) 145 H (65-110) mg/dL Random Glucose 105 (65-105) mg/dL Calcium 9.0 (8.6-10.4) mg/dl Phosphorus 2.6 (2.5-4.5) mg/dL Magnesium 1.5 L (1.6-2.3) mg/dL Total Bilirubin 2.4 H (0.2-1.3) mg/dL AST 37 H D (14-36) U/L ALT 34 (9-52) U/L Alkaline Phosphatase 138 H (38-126) U/L Total Protein 5.7 L (6.3-8.3) g/dL Albumin 2.3 L (3.5-5.0) g/dL Globulin 3.4 (2.2-3.9) gm/dL Albumin/Globulin Ratio 0.7 L (1.0-2.1) Ethanolamine Toxicology Panel (()) Methyl Alcohol Level Isopropanol Acetone Level 09/06/17 09/06/17 09/06/17 Range/Units 05:21 05:11 00:02 WBC (4.8-10.8) K/uL RBC (3.80-5.20) Mil/uL Hgb (11.0-16.0) g/dL Hct (34.0-47.0) % MCV (81.0-99.0) fL MCH (27.0-31.0) pg MCHC (33.0-37.0) g/dL RDW (11.5-14.5) % Plt Count (130-400) K/uL MPV (7.2-11.7) fL Neut % (Auto) (50.0-75.0) % Lymph % (Auto) (20.0-40.0) % [place] % (Auto) (0.0-10.0) % Eos % (Auto) (0.0-4.0) % Baso % (Auto) (0.0-2.0) % Neut # (1.8-7.0) K/uL Lymph # (1.0-4.3) K/uL [place] # (0.0-0.8) K/uL Eos # (0.0-0.7) K/uL Baso # (0.0-0.2) K/uL Neutrophils % (Manual) (50-75) % Lymphocytes % (Manual) (20-40) % Monocytes % (Manual) (0-10) % Platelet Estimate (NORMAL) Hypochromasia (manual) Poikilocytosis (manual Anisocytosis (manual) Microcytosis (manual) Target Cells Ovalocytes Franco Cells Puncture Site Lr pCO2 33 L (35-45) mm/Hg pO2 73 L (80-100) mm/Hg HCO3 23.0 (21-28) mmol/L ABG pH 7.42 (7.35-7.45) ABG Total CO2 22.4 (22-28) mmol/L ABG O2 Saturation 96.5 (95-98) % ABG Base Excess -2.4 L (-2.0-3.0) mmol/L ABG Hemoglobin 12.8 (11.7-17.4) g/dL ABG Carboxyhemoglobin 2.3 H (0.5-1.5) % POC ABG HHb (Measured) 3.4 (0.0-5.0) % ABG Methemoglobin 0.8 (0.0-3.0) % Stephen Test Pos A-a O2 Difference 171.0 mm/Hg Respiratory Index 2.3 Hgb O2 Saturation 93.5 L (95.0-98.0) % Vent Mode Prvc Mechanical Rate 10 FiO2 40.0 % Tidal Volume 450 PEEP 5 Sodium (132-148) mmol/L Potassium (3.6-5.2) mmol/L Chloride (98-107) mmol/L Carbon Dioxide (22-30) mmol/L Anion Gap (10-20) BUN (7-17) mg/dL Creatinine (0.7-1.2) mg/dL Est GFR ( Amer) Est GFR (Non-Af Amer) POC Glucose (mg/dL) 232 H 103 (65-110) mg/dL Random Glucose (65-105) mg/dL Calcium (8.6-10.4) mg/dl Phosphorus (2.5-4.5) mg/dL Magnesium (1.6-2.3) mg/dL Total Bilirubin (0.2-1.3) mg/dL AST (14-36) U/L ALT (9-52) U/L Alkaline Phosphatase (38-126) U/L Total Protein (6.3-8.3) g/dL Albumin (3.5-5.0) g/dL Globulin (2.2-3.9) gm/dL Albumin/Globulin Ratio (1.0-2.1) Ethanolamine Toxicology Panel (()) Methyl Alcohol Level Isopropanol Acetone Level 09/05/17 08/31/17 Range/Units 17:43 13:32 WBC (4.8-10.8) K/uL RBC (3.80-5.20) Mil/uL Hgb (11.0-16.0) g/dL Hct (34.0-47.0) % MCV (81.0-99.0) fL MCH (27.0-31.0) pg MCHC (33.0-37.0) g/dL RDW (11.5-14.5) % Plt Count (130-400) K/uL MPV (7.2-11.7) fL Neut % (Auto) (50.0-75.0) % Lymph % (Auto) (20.0-40.0) % [place] % (Auto) (0.0-10.0) % Eos % (Auto) (0.0-4.0) % Baso % (Auto) (0.0-2.0) % Neut # (1.8-7.0) K/uL Lymph # (1.0-4.3) K/uL [place] # (0.0-0.8) K/uL Eos # (0.0-0.7) K/uL Baso # (0.0-0.2) K/uL Neutrophils % (Manual) (50-75) % Lymphocytes % (Manual) (20-40) % Monocytes % (Manual) (0-10) % Platelet Estimate (NORMAL) Hypochromasia (manual) Poikilocytosis (manual Anisocytosis (manual) Microcytosis (manual) Target Cells Ovalocytes Franco Cells Puncture Site pCO2 (35-45) mm/Hg pO2 (80-100) mm/Hg HCO3 (21-28) mmol/L ABG pH (7.35-7.45) ABG Total CO2 (22-28) mmol/L ABG O2 Saturation (95-98) % ABG Base Excess (-2.0-3.0) mmol/L ABG Hemoglobin (11.7-17.4) g/dL ABG Carboxyhemoglobin (0.5-1.5) % POC ABG HHb (Measured) (0.0-5.0) % ABG Methemoglobin (0.0-3.0) % Stephen Test A-a O2 Difference mm/Hg Respiratory Index Hgb O2 Saturation (95.0-98.0) % Vent Mode Mechanical Rate FiO2 % Tidal Volume PEEP Sodium (132-148) mmol/L Potassium (3.6-5.2) mmol/L Chloride (98-107) mmol/L Carbon Dioxide (22-30) mmol/L Anion Gap (10-20) BUN (7-17) mg/dL Creatinine (0.7-1.2) mg/dL Est GFR ( Amer) Est GFR (Non-Af Amer) POC Glucose (mg/dL) 97 (65-110) mg/dL Random Glucose (65-105) mg/dL Calcium (8.6-10.4) mg/dl Phosphorus (2.5-4.5) mg/dL Magnesium (1.6-2.3) mg/dL Total Bilirubin (0.2-1.3) mg/dL AST (14-36) U/L ALT (9-52) U/L Alkaline Phosphatase (38-126) U/L Total Protein (6.3-8.3) g/dL Albumin (3.5-5.0) g/dL Globulin (2.2-3.9) gm/dL Albumin/Globulin Ratio (1.0-2.1) Ethanolamine None detected Toxicology Panel see note (()) Methyl Alcohol Level None detected Isopropanol None detected Acetone Level None detected Laboratory Results - last 24 hr 08/31/17 09/05/17 09/06/17 13:32 17:43 00:02 WBC RBC Hgb Hct MCV MCH MCHC RDW Plt Count MPV Neut % (Auto) Lymph % (Auto) [place] % (Auto) Eos % (Auto) Baso % (Auto) Neut # Lymph # [place] # Eos # Baso # Neutrophils % (Manual) Lymphocytes % (Manual) Monocytes % (Manual) Platelet Estimate Hypochromasia (manual) Poikilocytosis (manual Anisocytosis (manual) Microcytosis (manual) Target Cells Ovalocytes [place] Cells Puncture Site pCO2 pO2 HCO3 ABG pH ABG Total CO2 ABG O2 Saturation ABG Base Excess ABG Hemoglobin ABG Carboxyhemoglobin POC ABG HHb (Measured) ABG Methemoglobin Stephen Test A-a O2 Difference Respiratory Index Hgb O2 Saturation Vent Mode Mechanical Rate FiO2 Tidal Volume PEEP Sodium Potassium Chloride Carbon Dioxide Anion Gap BUN Creatinine Est GFR ( Amer) Est GFR (Non-Af Amer) POC Glucose (mg/dL) 97 103 Random Glucose Calcium Phosphorus Magnesium Total Bilirubin AST ALT Alkaline Phosphatase Total Protein Albumin Globulin Albumin/Globulin Ratio Ethanolamine None detected Toxicology Panel see note Methyl Alcohol Level None detected Isopropanol None detected Acetone Level None detected 09/06/17 09/06/17 09/06/17 05:11 05:21 06:18 WBC RBC Hgb Hct MCV MCH MCHC RDW Plt Count MPV Neut % (Auto) Lymph % (Auto) [place] % (Auto) Eos % (Auto) Baso % (Auto) Neut # Lymph # [place] # Eos # Baso # Neutrophils % (Manual) Lymphocytes % (Manual) Monocytes % (Manual) Platelet Estimate Hypochromasia (manual) Poikilocytosis (manual Anisocytosis (manual) Microcytosis (manual) Target Cells Ovalocytes [place] Cells Puncture Site Lr pCO2 33 L pO2 73 L HCO3 23.0 ABG pH 7.42 ABG Total CO2 22.4 ABG O2 Saturation 96.5 ABG Base Excess -2.4 L ABG Hemoglobin 12.8 ABG Carboxyhemoglobin 2.3 H POC ABG HHb (Measured) 3.4 ABG Methemoglobin 0.8 Stephen Test Pos A-a O2 Difference 171.0 Respiratory Index 2.3 Hgb O2 Saturation 93.5 L Vent Mode Prvc Mechanical Rate 10 FiO2 40.0 Tidal Volume 450 PEEP 5 Sodium 132 Potassium 3.8 Chloride 103 Carbon Dioxide 21 L Anion Gap 12 BUN 4 L Creatinine 0.3 L Est GFR ( Amer) > 60 Est GFR (Non-Af Amer) > 60 POC Glucose (mg/dL) 232 H Random Glucose 105 Calcium 9.0 Phosphorus 2.6 Magnesium 1.5 L Total Bilirubin 2.4 H AST 37 H D ALT 34 Alkaline Phosphatase 138 H Total Protein 5.7 L Albumin 2.3 L Globulin 3.4 Albumin/Globulin Ratio 0.7 L Ethanolamine Toxicology Panel Methyl Alcohol Level Isopropanol Acetone Level 09/06/17 09/06/17 06:20 11:15 WBC 13.3 H RBC 2.71 L Hgb 8.5 L Hct 24.4 L MCV 90.1 MCH 31.2 H MCHC 34.7 RDW 16.4 H Plt Count 130 MPV 8.0 Neut % (Auto) 88.5 H Lymph % (Auto) 5.9 L [place] % (Auto) 4.3 Eos % (Auto) 1.2 Baso % (Auto) 0.1 Neut # 11.7 H Lymph # 0.8 L [place] # 0.6 Eos # 0.2 Baso # 0.0 Neutrophils % (Manual) 88 H Lymphocytes % (Manual) 9 L Monocytes % (Manual) 3 Platelet Estimate Normal Hypochromasia (manual) Moderate Poikilocytosis (manual Slight Anisocytosis (manual) Slight Microcytosis (manual) Slight Target Cells Slight Ovalocytes Slight [place] Cells Slight Puncture Site pCO2 pO2 HCO3 ABG pH ABG Total CO2 ABG O2 Saturation ABG Base Excess ABG Hemoglobin ABG Carboxyhemoglobin POC ABG HHb (Measured) ABG Methemoglobin Stephen Test A-a O2 Difference Respiratory Index Hgb O2 Saturation Vent Mode Mechanical Rate FiO2 Tidal Volume PEEP Sodium Potassium Chloride Carbon Dioxide Anion Gap BUN Creatinine Est GFR ( Amer) Est GFR (Non-Af Amer) POC Glucose (mg/dL) 145 H Random Glucose Calcium Phosphorus Magnesium Total Bilirubin AST ALT Alkaline Phosphatase Total Protein Albumin Globulin Albumin/Globulin Ratio Ethanolamine Toxicology Panel Methyl Alcohol Level Isopropanol Acetone Level Assessment/Plan (1) Cardiac arrest Current Visit: Yes Status: Acute Attending/Attestation - Attestation I have personally seen and examined this patient.: Yes I have fully participated in the care of the patient.: Yes I have reviewed all pertinent clinical information: Yes Notes (Text): 09/06/17 16:59 I have seen and examined the patient. Medical records, lab studies, and imaging were reviewed by me and a management plan was formulated on multidisciplinary rounds with resident Dr. Massey. I agree with their documented assessment and plan. Patient is still seizing while on 3 AED's, no hope of recovery, secondary to severe anoxic brain injury. Advised family to withdraw care, hopeful decision by Sunday as per conversation with Daughter who is decision maker (and of legal age, 19). Critical Care Time 35 minutes. Multi-disciplinary rounds were performed with house staff, nursing, speech therapy, respiratory therapy, pharmacy and nutrition with integrated input from the primary team/attending and other consulting services. The documented time is cumulative and includes review of patient data/exams/labs/chart review and examination of the patient on rounds and throughout the day; time is exclusive of any procedures or teaching time. <Liset Massey - Last Filed: 09/06/17 18:52> CCU Subjective - Physician Review Subjective (Free Text): Patient seen and examined at bedside. Patient currently intubated. ROS unobtainable due to patient's current clinical status. CCU Objective - Vital Signs / Intake & Output Vital Signs (Last 4 hours): Vital Signs Pulse Resp BP Pulse Ox 09/06/17 07:00 119 H 25 H 98 09/06/17 06:22 121 H 25 H 109/74 98 09/06/17 06:00 122 H 19 100 09/06/17 05:23 123 H 26 H 107/86 97 09/06/17 05:00 124 H 19 97 Intake and Output (Last 8hrs): Intake & Output 09/05/17 09/06/17 09/06/17 22:59 06:59 14:59 Intake Total 1175.4 1494.15 156.3 Output Total 450 775 250 Balance 725.4 719.15 -93.7 Weight 180 lb 8 oz Intake: IV 100 Intake, IV Amount 1015.4 1134.15 136.3 Right Distal Port 925 1043.75 125 Internal Jugular Right Medial Port 40 40 5 Internal Jugular Right Proximal Port 50.4 50.4 6.3 Internal Jugular Oral 100 Tube Feeding 160 160 20 Output: Urine 450 775 150 Urethral (Andino) 450 775 150 Stool 100 - Physical Exam Head: Positive for: Atraumatic, Normocephalic Pupils: Positive for: Sluggish Extroacular Muscles: Negative for: EOMI Mouth: Positive for: Moist Mucous Membranes Respiratory/Chest: Positive for: Good Air Exchange, Other (intubated ) Cardiovascular: Positive for: Normal S1, S2, Tachycardic Abdomen: Positive for: Normal Bowel Sounds. Negative for: Distention Upper Extremity: Negative for: Edema Lower Extremity: Negative for: Edema Neurological: Negative for: GCS=15, Speech Normal Skin: Positive for: Normal Color Psychiatric: Negative for: Alert, Oriented x 3 - Medications Active Medications: Active Medications Generic Name Dose Route Start Last Admin Trade Name Freq PRN Reason Stop Dose Admin Albuterol/Ipratropium 3 ml 09/03/17 16:00 09/06/17 07:22 Duoneb 3 Mg/0.5 Mg (3 Ml) Ud INH 3 ml RQ8 EUSEBIO Administration Artificial Tears 1 gm 08/31/17 12:00 09/04/17 12:27 Lacri-Lube OS 1 gm Q6H PRN Administration Sedation Midazolam HCl 100 mg/ Sodium 100 mls @ 5 mls/hr 08/31/17 08:29 09/06/17 05:58 Chloride IV 5 mg/hr .Q20H EUSEBIO 5 mls/hr Protocol Administration 5 MG/HR Levetiracetam 1,000 mg/ Sodium 110 mls @ 420 mls/hr 09/01/17 06:00 09/06/17 05:53 Chloride IVPB 420 mls/hr Q12H EUSEBIO Administration Potassium Chloride 20 meq/ 1,010 mls @ 125 mls/hr 09/04/17 09:57 09/06/17 04: 29 Sodium Chloride IV 125 mls/hr .Q8H5M EUSEBIO Administration Piperacillin Sod/Tazobactam Sod 3.375 gm in 50 mls @ 100 mls/hr 09/05/17 10: 30 09/06/17 04:31 Zosyn 3.375 Gm Iv Premix IVPB 100 mls/hr Q6H EUSEBIO Administration Propofol 1,000 mg in 100 mls @ 2.3 mls/hr 09/05/17 15:59 09/05/17 17:33 Diprivan IV 13.69 mcg/kg/min .Q24H PRN 6.3 mls/hr TITRATE PER MD ORDER Administration Protocol 5 MCG/KG/MIN Magnesium Sulfate/Dextrose 1 gm in 100 mls @ 300 mls/hr 09/06/17 08:30 Magnesium Sulfate 1 Gm/100 Ml D5w IVPB 09/06/17 09:19 Q30M EUSEBIO Pantoprazole Sodium 40 mg 08/31/17 10:00 09/05/17 10:01 Protonix Inj IVP 40 mg DAILY EUSEBIO Administration Potassium Phos/Sodium Phos 1 pkt 09/01/17 10:30 09/06/17 05:56 Neutra-Phos NG 1 pkt Q6 EUSEBIO Administration Thiamine HCl 100 mg 08/30/17 22:15 09/05/17 11:08 Vitamin B1 Inj IV 100 mg DAILY EUSEBIO Administration - Patient Studies Lab Studies: Microbiology Studies 09/03/17 17:51 Gram Stain - Final Sputum Sputum Culture - Final Methicillin Resistant S Aureus Lab Studies 09/06/17 09/06/17 09/06/17 Range/Units 06:20 06:18 05:21 WBC 13.3 H (4.8-10.8) K/uL RBC 2.71 L (3.80-5.20) Mil/uL Hgb 8.5 L (11.0-16.0) g/dL Hct 24.4 L (34.0-47.0) % MCV 90.1 (81.0-99.0) fL MCH 31.2 H (27.0-31.0) pg MCHC 34.7 (33.0-37.0) g/dL RDW 16.4 H (11.5-14.5) % Plt Count 130 (130-400) K/uL MPV 8.0 (7.2-11.7) fL Neut % (Auto) 88.5 H (50.0-75.0) % Lymph % (Auto) 5.9 L (20.0-40.0) % [place] % (Auto) 4.3 (0.0-10.0) % Eos % (Auto) 1.2 (0.0-4.0) % Baso % (Auto) 0.1 (0.0-2.0) % Neut # 11.7 H (1.8-7.0) K/uL Lymph # 0.8 L (1.0-4.3) K/uL [place] # 0.6 (0.0-0.8) K/uL Eos # 0.2 (0.0-0.7) K/uL Baso # 0.0 (0.0-0.2) K/uL Neutrophils % (Manual) (50-75) % Band Neutrophils % (0-2) % Lymphocytes % (Manual) (20-40) % Monocytes % (Manual) (0-10) % Toxic Granulation Platelet Estimate (NORMAL) Hypochromasia (manual) Poikilocytosis (manual Anisocytosis (manual) Ovalocytes [place] Cells Puncture Site pCO2 (35-45) mm/Hg pO2 (80-100) mm/Hg HCO3 (21-28) mmol/L ABG pH (7.35-7.45) ABG Total CO2 (22-28) mmol/L ABG O2 Saturation (95-98) % ABG Base Excess (-2.0-3.0) mmol/L ABG Hemoglobin (11.7-17.4) g/dL ABG Carboxyhemoglobin (0.5-1.5) % POC ABG HHb (Measured) (0.0-5.0) % ABG Methemoglobin (0.0-3.0) % Stephen Test A-a O2 Difference mm/Hg Respiratory Index Hgb O2 Saturation (95.0-98.0) % Vent Mode Mechanical Rate FiO2 % Tidal Volume PEEP Sodium 132 (132-148) mmol/L Potassium 3.8 (3.6-5.2) mmol/L Chloride 103 (98-107) mmol/L Carbon Dioxide 21 L (22-30) mmol/L Anion Gap 12 (10-20) BUN 4 L (7-17) mg/dL Creatinine 0.3 L (0.7-1.2) mg/dL Est GFR ( Amer) > 60 Est GFR (Non-Af Amer) > 60 POC Glucose (mg/dL) 232 H (65-110) mg/dL Random Glucose 105 (65-105) mg/dL Calcium 9.0 (8.6-10.4) mg/dl Phosphorus 2.6 (2.5-4.5) mg/dL Magnesium 1.5 L (1.6-2.3) mg/dL Total Bilirubin 2.4 H (0.2-1.3) mg/dL AST 37 H D (14-36) U/L ALT 34 (9-52) U/L Alkaline Phosphatase 138 H (38-126) U/L Total Protein 5.7 L (6.3-8.3) g/dL Albumin 2.3 L (3.5-5.0) g/dL Globulin 3.4 (2.2-3.9) gm/dL Albumin/Globulin Ratio 0.7 L (1.0-2.1) Ethanolamine Toxicology Panel (()) Methyl Alcohol Level Isopropanol Acetone Level 09/06/17 09/06/17 09/05/17 Range/Units 05:11 00:02 17:43 WBC (4.8-10.8) K/uL RBC (3.80-5.20) Mil/uL Hgb (11.0-16.0) g/dL Hct (34.0-47.0) % MCV (81.0-99.0) fL MCH (27.0-31.0) pg MCHC (33.0-37.0) g/dL RDW (11.5-14.5) % Plt Count (130-400) K/uL MPV (7.2-11.7) fL Neut % (Auto) (50.0-75.0) % Lymph % (Auto) (20.0-40.0) % [place] % (Auto) (0.0-10.0) % Eos % (Auto) (0.0-4.0) % Baso % (Auto) (0.0-2.0) % Neut # (1.8-7.0) K/uL Lymph # (1.0-4.3) K/uL [place] # (0.0-0.8) K/uL Eos # (0.0-0.7) K/uL Baso # (0.0-0.2) K/uL Neutrophils % (Manual) (50-75) % Band Neutrophils % (0-2) % Lymphocytes % (Manual) (20-40) % Monocytes % (Manual) (0-10) % Toxic Granulation Platelet Estimate (NORMAL) Hypochromasia (manual) Poikilocytosis (manual Anisocytosis (manual) Ovalocytes Franco Cells Puncture Site Lr pCO2 33 L (35-45) mm/Hg pO2 73 L (80-100) mm/Hg HCO3 23.0 (21-28) mmol/L ABG pH 7.42 (7.35-7.45) ABG Total CO2 22.4 (22-28) mmol/L ABG O2 Saturation 96.5 (95-98) % ABG Base Excess -2.4 L (-2.0-3.0) mmol/L ABG Hemoglobin 12.8 (11.7-17.4) g/dL ABG Carboxyhemoglobin 2.3 H (0.5-1.5) % POC ABG HHb (Measured) 3.4 (0.0-5.0) % ABG Methemoglobin 0.8 (0.0-3.0) % Stephen Test Pos A-a O2 Difference 171.0 mm/Hg Respiratory Index 2.3 Hgb O2 Saturation 93.5 L (95.0-98.0) % Vent Mode Prvc Mechanical Rate 10 FiO2 40.0 % Tidal Volume 450 PEEP 5 Sodium (132-148) mmol/L Potassium (3.6-5.2) mmol/L Chloride (98-107) mmol/L Carbon Dioxide (22-30) mmol/L Anion Gap (10-20) BUN (7-17) mg/dL Creatinine (0.7-1.2) mg/dL Est GFR ( Amer) Est GFR (Non-Af Amer) POC Glucose (mg/dL) 103 97 (65-110) mg/dL Random Glucose (65-105) mg/dL Calcium (8.6-10.4) mg/dl Phosphorus (2.5-4.5) mg/dL Magnesium (1.6-2.3) mg/dL Total Bilirubin (0.2-1.3) mg/dL AST (14-36) U/L ALT (9-52) U/L Alkaline Phosphatase (38-126) U/L Total Protein (6.3-8.3) g/dL Albumin (3.5-5.0) g/dL Globulin (2.2-3.9) gm/dL Albumin/Globulin Ratio (1.0-2.1) Ethanolamine Toxicology Panel (()) Methyl Alcohol Level Isopropanol Acetone Level 09/05/17 09/05/17 08/31/17 Range/Units 12:03 06:20 13:32 WBC (4.8-10.8) K/uL RBC (3.80-5.20) Mil/uL Hgb (11.0-16.0) g/dL Hct (34.0-47.0) % MCV (81.0-99.0) fL MCH (27.0-31.0) pg MCHC (33.0-37.0) g/dL RDW (11.5-14.5) % Plt Count (130-400) K/uL MPV (7.2-11.7) fL Neut % (Auto) (50.0-75.0) % Lymph % (Auto) (20.0-40.0) % [place] % (Auto) (0.0-10.0) % Eos % (Auto) (0.0-4.0) % Baso % (Auto) (0.0-2.0) % Neut # (1.8-7.0) K/uL Lymph # (1.0-4.3) K/uL [place] # (0.0-0.8) K/uL Eos # (0.0-0.7) K/uL Baso # (0.0-0.2) K/uL Neutrophils % (Manual) 83 H (50-75) % Band Neutrophils % 2 (0-2) % Lymphocytes % (Manual) 8 L (20-40) % Monocytes % (Manual) 7 (0-10) % Toxic Granulation Present Platelet Estimate Normal (NORMAL) Hypochromasia (manual) Slight Poikilocytosis (manual Slight Anisocytosis (manual) Slight Ovalocytes Slight Franco Cells Slight Puncture Site pCO2 (35-45) mm/Hg pO2 (80-100) mm/Hg HCO3 (21-28) mmol/L ABG pH (7.35-7.45) ABG Total CO2 (22-28) mmol/L ABG O2 Saturation (95-98) % ABG Base Excess (-2.0-3.0) mmol/L ABG Hemoglobin (11.7-17.4) g/dL ABG Carboxyhemoglobin (0.5-1.5) % POC ABG HHb (Measured) (0.0-5.0) % ABG Methemoglobin (0.0-3.0) % Stephen Test A-a O2 Difference mm/Hg Respiratory Index Hgb O2 Saturation (95.0-98.0) % Vent Mode Mechanical Rate FiO2 % Tidal Volume PEEP Sodium (132-148) mmol/L Potassium (3.6-5.2) mmol/L Chloride (98-107) mmol/L Carbon Dioxide (22-30) mmol/L Anion Gap (10-20) BUN (7-17) mg/dL Creatinine (0.7-1.2) mg/dL Est GFR ( Amer) Est GFR (Non-Af Amer) POC Glucose (mg/dL) 105 (65-110) mg/dL Random Glucose (65-105) mg/dL Calcium (8.6-10.4) mg/dl Phosphorus (2.5-4.5) mg/dL Magnesium (1.6-2.3) mg/dL Total Bilirubin (0.2-1.3) mg/dL AST (14-36) U/L ALT (9-52) U/L Alkaline Phosphatase (38-126) U/L Total Protein (6.3-8.3) g/dL Albumin (3.5-5.0) g/dL Globulin (2.2-3.9) gm/dL Albumin/Globulin Ratio (1.0-2.1) Ethanolamine None detected Toxicology Panel see note (()) Methyl Alcohol Level None detected Isopropanol None detected Acetone Level None detected Laboratory Results - last 24 hr 08/31/17 09/05/17 09/05/17 13:32 06:20 12:03 WBC RBC Hgb Hct MCV MCH MCHC RDW Plt Count MPV Neut % (Auto) Lymph % (Auto) [place] % (Auto) Eos % (Auto) Baso % (Auto) Neut # Lymph # [place] # Eos # Baso # Neutrophils % (Manual) 83 H Band Neutrophils % 2 Lymphocytes % (Manual) 8 L Monocytes % (Manual) 7 Toxic Granulation Present Platelet Estimate Normal Hypochromasia (manual) Slight Poikilocytosis (manual Slight Anisocytosis (manual) Slight Ovalocytes Slight Franco Cells Slight Puncture Site pCO2 pO2 HCO3 ABG pH ABG Total CO2 ABG O2 Saturation ABG Base Excess ABG Hemoglobin ABG Carboxyhemoglobin POC ABG HHb (Measured) ABG Methemoglobin Stephen Test A-a O2 Difference Respiratory Index Hgb O2 Saturation Vent Mode Mechanical Rate FiO2 Tidal Volume PEEP Sodium Potassium Chloride Carbon Dioxide Anion Gap BUN Creatinine Est GFR ( Amer) Est GFR (Non-Af Amer) POC Glucose (mg/dL) 105 Random Glucose Calcium Phosphorus Magnesium Total Bilirubin AST ALT Alkaline Phosphatase Total Protein Albumin Globulin Albumin/Globulin Ratio Ethanolamine None detected Toxicology Panel see note Methyl Alcohol Level None detected Isopropanol None detected Acetone Level None detected 09/05/17 09/06/17 09/06/17 17:43 00:02 05:11 WBC RBC Hgb Hct MCV MCH MCHC RDW Plt Count MPV Neut % (Auto) Lymph % (Auto) [place] % (Auto) Eos % (Auto) Baso % (Auto) Neut # Lymph # [place] # Eos # Baso # Neutrophils % (Manual) Band Neutrophils % Lymphocytes % (Manual) Monocytes % (Manual) Toxic Granulation Platelet Estimate Hypochromasia (manual) Poikilocytosis (manual Anisocytosis (manual) Ovalocytes [place] Cells Puncture Site Lr pCO2 33 L pO2 73 L HCO3 23.0 ABG pH 7.42 ABG Total CO2 22.4 ABG O2 Saturation 96.5 ABG Base Excess -2.4 L ABG Hemoglobin 12.8 ABG Carboxyhemoglobin 2.3 H POC ABG HHb (Measured) 3.4 ABG Methemoglobin 0.8 Stephen Test Pos A-a O2 Difference 171.0 Respiratory Index 2.3 Hgb O2 Saturation 93.5 L Vent Mode Prvc Mechanical Rate 10 FiO2 40.0 Tidal Volume 450 PEEP 5 Sodium Potassium Chloride Carbon Dioxide Anion Gap BUN Creatinine Est GFR ( Amer) Est GFR (Non-Af Amer) POC Glucose (mg/dL) 97 103 Random Glucose Calcium Phosphorus Magnesium Total Bilirubin AST ALT Alkaline Phosphatase Total Protein Albumin Globulin Albumin/Globulin Ratio Ethanolamine Toxicology Panel Methyl Alcohol Level Isopropanol Acetone Level 09/06/17 09/06/17 09/06/17 05:21 06:18 06:20 WBC 13.3 H RBC 2.71 L Hgb 8.5 L Hct 24.4 L MCV 90.1 MCH 31.2 H MCHC 34.7 RDW 16.4 H Plt Count 130 MPV 8.0 Neut % (Auto) 88.5 H Lymph % (Auto) 5.9 L [place] % (Auto) 4.3 Eos % (Auto) 1.2 Baso % (Auto) 0.1 Neut # 11.7 H Lymph # 0.8 L [place] # 0.6 Eos # 0.2 Baso # 0.0 Neutrophils % (Manual) Band Neutrophils % Lymphocytes % (Manual) Monocytes % (Manual) Toxic Granulation Platelet Estimate Hypochromasia (manual) Poikilocytosis (manual Anisocytosis (manual) Ovalocytes [place] Cells Puncture Site pCO2 pO2 HCO3 ABG pH ABG Total CO2 ABG O2 Saturation ABG Base Excess ABG Hemoglobin ABG Carboxyhemoglobin POC ABG HHb (Measured) ABG Methemoglobin Stephen Test A-a O2 Difference Respiratory Index Hgb O2 Saturation Vent Mode Mechanical Rate FiO2 Tidal Volume PEEP Sodium 132 Potassium 3.8 Chloride 103 Carbon Dioxide 21 L Anion Gap 12 BUN 4 L Creatinine 0.3 L Est GFR ( Amer) > 60 Est GFR (Non-Af Amer) > 60 POC Glucose (mg/dL) 232 H Random Glucose 105 Calcium 9.0 Phosphorus 2.6 Magnesium 1.5 L Total Bilirubin 2.4 H AST 37 H D ALT 34 Alkaline Phosphatase 138 H Total Protein 5.7 L Albumin 2.3 L Globulin 3.4 Albumin/Globulin Ratio 0.7 L Ethanolamine Toxicology Panel Methyl Alcohol Level Isopropanol Acetone Level Fingerstick Blood Sugar Results: 232 Review of Systems - Review of Systems Systems not reviewed;Unavailable: Intubated Assessment/Plan - Assessment and Plan (Free Text) Assessment: 36 year old female with past medical history of anemia and alcohol abuse, who was found unconscious by . EMS was called and patient was found to be in Asystole, ACLS protocol was initiated and 2 rounds of epinephrine and then ROSC. Patient was unconscious in the ED. Subsequently, patient was admitted to the ICU and hypothermia protocol was initiated. Today: Family still undecided on nursing home goals of care. Plan: Neuro: Intubated, Acute seizures Neurologist, Dr. Pugh---> help appreciated * Management as per recommendation Medication/Management: * Keppra 500mg IV Q12H * Versed drip * Propofol (Titratable) Imaging: * EEG (08/31/17): globally abnormal EEG because of persistent spike and wave activities consistent with status epilepticus. Please correlate the findings with neurological and radiological studies * Cerebral blood flow (09/03/17): does not conform to nuclear medicine diagnosis of brain . There is a faint cerebral flow, the study is considered technically suboptimal for reasons related to technique and poor visualization of carotid arteries. * CT head w/o contrast (09/03/17): No mass effect or edema. No atrophy or chronic microvascular. * f/u EEG (09/06) Cardio: Cardiopulmonary Arrest Management: * Intubated * Hypothermia protocol was initiated Pulm: Respiratory distress secondary to cardiac arrest Management: * Intubated * sputum culture: MRSA * Zosyn 3.375 gm q6h GI: Diarrhea * C. Dif negative Renal: Hyponatremia Nephrology, Dr. Ramos---> Help appreciated * Management as per recommendation * Potassium and Magnesium repleted * KDur 20mEq BID Psych: Alcohol abuse disorder * Thiamine 100mg IV daily * Psychiatric consult once patient is clinically stable Prophylaxis measures: * R IJ in place * DVT: SCDs, Heparin 5,000units SC Q12H * GI: Protonix 40mg IV daily * tube feeds: jevity @ 20cc/hr
[2017-09-06 08:37] LABS: NEUTROPHIL 88 % (50-75); TOTAL CELLS COUNTED 100
--- NOTE | 2017-09-06 09:07 | RAD ---
Chest x-ray single frontal view History: Intubated. Comparison: 09/05/2017 Findings: Lines and tubes in stable position. Worsening diffuse increased airspace opacifications throughout both lungs with more consolidative changes seen in the right midlung zone and left lung base. Mild cardiomegaly. Suggestion of a small left pleural effusion. Right apical pleural thickening. Rounded lucency projects over the upper trachea of uncertain clinical etiology. Clinical correlation. Impression: Lines and tubes in stable position. Worsening diffuse increased airspace opacifications throughout both lungs with more consolidative changes seen in the right midlung zone and left lung base. Mild cardiomegaly. Suggestion of a small left pleural effusion. Right apical pleural thickening. Rounded lucency projects over the upper trachea of uncertain clinical etiology. Clinical correlation.
[2017-09-06] MEDS: Magnesium Sulfate 1 gm in D5W 1 GM/100 ML BAG IVPB SCH ×2 (09:28→11:13)
[2017-09-06] MEDS: Thiamine 100 mg/ml Inj IV SCH (09:32)
--- NOTE | 2017-09-06 09:50 | EEG ---
DATE: 09/04/2017 CONDITION OF THE RECORDING: This is a 16-channel electroencephalogram of comatose adult. The study was performed at the bedside. The resting electroencephalogram was filled with loose electrode artifact. There is intermittent polyspike and wave noted at least 1 to 2 Hz. This all followed with burst suppression. Again loose electrode artifact contaminated the whole rhythm. IMPRESSION: This is abnormal electroencephalogram because of polyspike wave and slow activity consistent with bilateral cerebral dysfunction superimposed with epileptiform activities. However, this study is totally contaminated with loose electrode artifact. It is clinically indicated, the study should be repeated. Emory Pugh MD
--- NOTE | 2017-09-06 11:38 | CP.PCM.PN ---
Subjective - Date & Time of Evaluation Date of Evaluation: 09/06/17 Time of Evaluation: 11:15 - Subjective Subjective: Progress note dictated #[id number] Objective - Vital Signs/Intake and Output Vital Signs (last 24 hours): Temp Pulse Resp BP Pulse Ox 97.4 F L 121 H 27 H 104/70 100 09/06/17 08:00 09/06/17 10:22 09/06/17 10:22 09/06/17 10:22 09/06/17 10:22 Intake and Output: 09/06/17 09/06/17 06:59 18:59 Intake Total 2119.35 945.2 Output Total 1000 550 Balance 1119.35 395.2 - Medications Medications: Current Medications Albuterol/Ipratropium (Duoneb 3 Mg/0.5 Mg (3 Ml) Ud) 3 ml INH RQ8 EUSEBIO Last Admin: 09/06/17 07:22 Dose: 3 ml Artificial Tears (Lacri-Lube) 1 gm OS Q6H PRN PRN Reason: Sedation Last Admin: 09/04/17 12:27 Dose: 1 gm Midazolam HCl 100 mg/ Sodium (Chloride) 100 mls @ 5 mls/hr IV .Q20H EUSEBIO; 5 MG/ HR PRN Reason: Protocol Last Titration: 09/06/17 11:14 Dose: 8 mg/hr, 8 mls/hr Piperacillin Sod/Tazobactam Sod (Zosyn 3.375 Gm Iv Premix) 3.375 gm in 50 mls @ 100 mls/hr IVPB Q6H EUSEBIO Last Admin: 09/06/17 09:31 Dose: 100 mls/hr Propofol (Diprivan) 1,000 mg in 100 mls @ 2.3 mls/hr IV .Q24H PRN; Protocol; 5 MCG/KG/MIN PRN Reason: TITRATE PER MD ORDER Last Admin: 09/06/17 07:30 Dose: 16 mcg/kg/min, 7.359 mls/hr Magnesium Sulfate/Dextrose (Magnesium Sulfate 1 Gm/100 Ml D5w) 1 gm in 100 mls @ 100 mls/hr IVPB Q1H EUSEBIO Stop: 09/06/17 11:59 Last Admin: 09/06/17 11:13 Dose: 100 mls/hr Levetiracetam 1,000 mg/ (Dextrose) 110 mls @ 420 mls/hr IVPB Q12H EUSEBIO Pantoprazole Sodium (Protonix Inj) 40 mg IVP DAILY EUSEBIO Last Admin: 09/06/17 09:31 Dose: 40 mg Potassium Chloride (K-Dur 20 Meq Er Tab) 20 meq PO BID EUSEBIO Potassium Phos/Sodium Phos (Neutra-Phos) 1 pkt NG Q6 EUSEBIO Last Admin: 09/06/17 11:14 Dose: 1 pkt Thiamine HCl (Vitamin B1 Inj) 100 mg IV DAILY [facility] Last Admin: 09/06/17 09:32 Dose: 100 mg - Labs Labs: 09/06/17 06:20 09/06/17 06:18 PT 14.4 SECONDS (9.7-12.2) H 08/30/17 19:30 INR 1.3 08/30/17 19:30 APTT 28 SECONDS (21-34) 08/30/17 19:30
[2017-09-06] MEDS: Potassium Chloride 20 mEq ER Tab PO SCH ×2 (12:06→17:06)
[2017-09-06] MEDS ORDERED: Metoprolol 1 mg/ml Inj IVP ONE (19:01)
[2017-09-06] MEDS: White Petrolatum/Mineral Oil Ophth Oint(3.5 gm) OS PRN (20:10)
[2017-09-07] MEDS: Potassium & Sodium Phosphate NG SCH ×5 (00:31→23:11)
[2017-09-07] MEDS: Midazolam 50 mg/10 ml 100 MG in Sodium Chloride 0.9% 80 ML IV SCH (00:32)
--- NOTE | 2017-09-07 00:47 | PN ---
DATE: 09/06/2017 SUBJECTIVE: The patient was seen and examined at bedside. The patient's condition remains the same, unconscious, remains intubated, having involuntary movements. PHYSICAL EXAMINATION: VITAL SIGNS: Blood pressure is 95/61, pulse is 135, respirations are 26, and O2 saturation is 95% on 40% FiO2, 450 tidal volume, rate of 14, and PEEP of 5. INTAKE AND OUTPUT: Intake is 4567 and output is 1585. HEENT: Pupils are sluggishly reacting to light. Positive pallor. No icterus. ET tube and gastric tube in the oral cavity. NECK: Supple. LUNGS: Bilateral vesicular breath sounds. Bilateral basal crackles. CARDIOVASCULAR SYSTEM: S1 and S2 present, regular. ABDOMEN: Soft. Bowel sounds are present. CENTRAL NERVOUS SYSTEM: Unconscious, sedated, and intubated. Involuntary movements of the upper and lower extremities. EXTREMITIES: No edema. MEDICATIONS: Include DuoNeb, artificial tears, Keppra 1000 mg IV q. 12 hours., Versed 5 mg per hour, Protonix 40 mg IV daily, Zosyn 3.375 grams IV q. 6 hours, K-Dur 20 mEq p.o. b.i.d., Neutra-Phos 1 pack q. 6 hours, propofol 5 mcg/kg/min, and thiamine 100 mg IV daily. LABORATORY DATA: From this morning, WBC of 13.3, hemoglobin of 8.5, hematocrit of 34.4, and platelets of 130. Sodium of 132, potassium of 3.8, chloride of 103, bicarbonate of 21, BUN of 4, creatinine of 0.3, glucose of 232, calcium of 9.0, phosphorous of 2.6, and magnesium of 1.5. Total bilirubin is 2.4, AST is 37, ALT is 34, and alkaline phosphatase is 138. Total protein is 5.7 and albumin is 2.3. ASSESSMENT AND PLAN: A young female with a history of ethanol abuse, substance abuse, back problems and wheelchair bound, admitted status post cardiac arrest with multiple electrolyte abnormalities including hyponatremia, hypokalemia, hypophosphatemia, hypomagnesemia with possible anoxic encephalopathy with seizures, ventilator dependent, persistent diarrhea, and Clostridium difficile negative. Neurologic status remains the same on multiple antiseizure medications. The patient remains ventilator dependent on 40% FiO2. She remains in sinus tachycardia. We will continue with gastric and deep venous thrombosis prophylaxis. Continue with supportive care. I discussed with the patient's spouse versus boyfriend, unclear if they were legally regarding the patient's condition. He understands the patient's critical condition, but claims that the patient's mother would make the decision on DNR and withdrawal of care. The patient's family understands the critical condition, would like to make the decision. Left message to the patient's mother. Until the patient's family decides, we will continue with supportive care. Phoenix Caballero MD
[2017-09-07] MEDS: Piperacill/Tazo 3.375gm in Dex 3.375 GM/50 ML BAG IVPB SCH ×4 (03:58→23:09)
[2017-09-07] MEDS: Propofol 10 mg/ml 1,000 MG/100 ML VIAL IV PRN ×2 (05:45→14:40)
[2017-09-07 05:49] LABS: ABG ALLEN TEST POS; ABG MECHANICAL RATE 10; ARTERIAL BLOOD GAS MODE PRVC; ARTERIAL BLOOD HGB O2 SAT 91.8 % (95.0-98.0); ATERIAL BLOOD GAS PEEP 5; CARBOXYHEMOGLOBIN 2.6 % (0.5-1.5); DRAW SITE RR; HHB 5.4 % (0.0-5.0); METHEMOGLOBIN 0.2 % (0.0-3.0)
[2017-09-07 07:06] LABS: BASO % 0.2 % (0.0-2.0); EOS # 0.1 K/uL (0.0-0.7); EOS % 0.9 % (0.0-4.0); HEMATOCRIT 22.2 % (34.0-47.0); LYMPH # 0.8 K/uL (1.0-4.3); LYMPH % 6.2 % (20.0-40.0); MEAN CELL VOLUME 90.3 fL (81.0-99.0); MEAN CORPUSCULAR HEMOGLOBIN 29.9 pg (27.0-31.0); MEAN CORPUSCULAR HGB CONC 33.1 g/dL (33.0-37.0); MEAN PLATELET VOLUME 8.2 fL (7.2-11.7); MONO # 0.5 K/uL (0.0-0.8); MONO % 3.5 % (0.0-10.0); PLATELET COUNT 128 K/uL (130-400); RED CELL DISTRIBUTION WIDTH 16.6 % (11.5-14.5); WHITE BLOOD COUNT 13.2 K/uL (4.8-10.8)
[2017-09-07] MEDS: Albuterol-Ipratrop 3 mg / 0.5 (3 ml) UD INH SCH ×2 (07:18→15:56)
[2017-09-07 07:26] LABS: CHLORIDE 100 mmol/L (98-107); SODIUM 129 mmol/L (132-148)
[2017-09-07 07:27] LABS: POTASSIUM 3.6 mmol/L (3.6-5.2)
[2017-09-07 07:28] LABS: BILIRUBIN,TOTAL 2.8 mg/dL (0.2-1.3); CARBON DIOXIDE 23 mmol/L (22-30); GFR AFRICAN-AMERICAN > 60
[2017-09-07 07:29] LABS: ALB/GLOB RATIO 0.9 (1.0-2.1); ALKALINE PHOSPHATASE 146 U/L (38-126); ALT/SGPT 32 U/L (9-52); AST/SGOT 46 U/L (14-36); BLOOD UREA NITROGEN 4 mg/dL (7-17); CALCIUM 8.6 mg/dl (8.6-10.4); GLUCOSE,RANDOM 96 mg/dL (65-105); MAGNESIUM 1.5 mg/dL (1.6-2.3); PHOSPHOROUS 3.8 mg/dL (2.5-4.5); TOTAL PROTEIN 4.6 g/dL (6.3-8.3)
--- NOTE | 2017-09-07 08:02 | PN ---
DATE: 09/06/2017 NEUROLOGIC PROBLEM: Anoxic encephalopathy with status epilepticus. PHYSICAL EXAMINATION: VITAL SIGNS: Blood pressure 109/74, pulse rate 119, and respiratory rate 25 on vent. The patient's still showing some rhythmic finger movement as well as the toe movements noted with blinking. The patient has remained comatose. Flaccid, quadriplegic, areflexic. No corneal reflex. No oculocephalic noted. The patient EEG showed the periodic polyphasic very suggestive of status epilepticus superimposed with complete lead artifacts, which she could not able to localize the focal epileptiform activities. RECOMMENDATIONS: 1. Repeat electroencephalogram today. 2. We will titrate the propofol dose to reach the maximum dose to suppress the rhythmic activities, in meantime keep the blood pressure in mean arterial pressure of between 90 to 100. The patient's overall prognosis is very poor. The patient should require tracheostomy and PEG placement in order to maintain longevity of her life. The patient will be followed closely. Emory Pugh MD
[2017-09-07 09:04] LABS: EOSINOPHIL 2 % (0-4); NEUTROPHIL 93 % (50-75); TOTAL CELLS COUNTED 100
--- NOTE | 2017-09-07 09:29 | RAD ---
HISTORY: intubated COMPARISON: Comparison chest dated 09/06/2017 FINDINGS: In situ ETT, tip of which lies approximately 4.8 cm above julieth. In situ NGT, the tip of which at the is called superiorly overlying left upper quadrant of the abdomen. LUNGS: Bibasilar opacities may represent atelectasis and or infiltrate. . PLEURA: No significant pleural effusion identified, no pneumothorax apparent. CARDIOVASCULAR: Normal. OSSEOUS STRUCTURES: No significant abnormalities. VISUALIZED UPPER ABDOMEN: Normal. OTHER FINDINGS: None. IMPRESSION: ETT and NGT as above. Bibasilar atelectasis and/or infiltrates.
[2017-09-07] MEDS: Thiamine 100 mg/ml Inj IV SCH (09:30)
--- NOTE | 2017-09-07 09:58 | EEG ---
DATE: 09/06/2017 This is a 16-channel electroencephalogram of a comatose adult. During the study, photic stimulation was performed. Hyperventilation was not performed. The resting electroencephalogram shows spike and wave activities diffusely seen in bilateral cortical leads from the beginning. Bilateral leads showed some burst suppression activities noted. The photic stimulation did not evoke driving response noted at 2 to 20 Hz. IMPRESSION: This electrographic activities consistent with status epilepticus. Please correlate the findings with the neurological and radiological studies. Emory Pugh MD
[2017-09-07] MEDS: Potassium Chloride 20 mEq ER Tab PO SCH (10:50)
[2017-09-07] MEDS: Midazolam 50 mg/10 ml 100 MG in Dextrose 5% In Water 80 ML IV SCH (10:51)
[2017-09-07] MEDS: Magnesium Sulfate 1 gm in D5W 1 GM/100 ML BAG IVPB SCH ×2 (11:10→11:55)
[2017-09-07] MEDS: Potassium Chloride 20 mEq/15 ml LIQ UD PO SCH ×2 (11:11→17:12)
--- NOTE | 2017-09-07 11:22 | CP.PCM.PN ---
Subjective - Date & Time of Evaluation Date of Evaluation: 09/07/17 Time of Evaluation: 10:50 - Subjective Subjective: Progress note dictated #[id number] Objective - Vital Signs/Intake and Output Vital Signs (last 24 hours): Temp Pulse Resp BP Pulse Ox 98.1 F 111 H 21 99/70 L 100 09/07/17 08:00 09/07/17 11:00 09/07/17 11:00 09/07/17 11:00 09/07/17 11:00 Intake and Output: 09/07/17 09/07/17 06:59 18:59 Intake Total 966.700 324.0 Output Total 965 225 Balance 1.700 99.0 - Medications Medications: Current Medications Albuterol/Ipratropium (Duoneb 3 Mg/0.5 Mg (3 Ml) Ud) 3 ml INH RQ8 EUSEBIO Last Admin: 09/07/17 07:18 Dose: 3 ml Artificial Tears (Lacri-Lube) 1 gm OS Q6H PRN PRN Reason: Sedation Last Admin: 09/06/17 20:10 Dose: 1 gm Piperacillin Sod/Tazobactam Sod (Zosyn 3.375 Gm Iv Premix) 3.375 gm in 50 mls @ 100 mls/hr IVPB Q6H EUSEBIO Last Admin: 09/07/17 09:31 Dose: 100 mls/hr Propofol (Diprivan) 1,000 mg in 100 mls @ 2.3 mls/hr IV .Q24H PRN; Protocol; 5 MCG/KG/MIN PRN Reason: TITRATE PER MD ORDER Last Admin: 09/07/17 05:45 Dose: 15 mcg/kg/min, 6.899 mls/hr Levetiracetam 1,000 mg/ (Dextrose) 110 mls @ 420 mls/hr IVPB Q12H EUSEBIO Last Admin: 09/07/17 05:39 Dose: 420 mls/hr Midazolam HCl 100 mg/ Dextrose 100 mls @ 5 mls/hr IV .Q20H EUSEBIO; 5 MG/HR PRN Reason: Protocol Last Admin: 09/07/17 10:51 Dose: 5 mg/hr, 5 mls/hr Magnesium Sulfate/Dextrose (Magnesium Sulfate 1 Gm/100 Ml D5w) 1 gm in 100 mls @ 300 mls/hr IVPB Q30M EUSEBIO Stop: 09/07/17 11:49 Last Admin: 09/07/17 11:10 Dose: 300 mls/hr Pantoprazole Sodium (Protonix Inj) 40 mg IVP DAILY [facility] [place] Last Admin: 09/07/17 09:30 Dose: 40 mg Potassium Chloride (Potassium Chloride Oral Soln) 20 meq PO BID [facility] [place] Last Admin: 09/07/17 11:11 Dose: 20 meq Potassium Phos/Sodium Phos (Neutra-Phos) 1 pkt NG Q6 [facility] [place] Last Admin: 09/07/17 11:11 Dose: 1 pkt Thiamine HCl (Vitamin B1 Inj) 100 mg IV DAILY [facility] [place] Last Admin: 09/07/17 09:30 Dose: 100 mg - Labs Labs: 09/07/17 06:53 09/07/17 06:53 PT 14.4 SECONDS (9.7-12.2) H 08/30/17 19:30 INR 1.3 08/30/17 19:30 APTT 28 SECONDS (21-34) 08/30/17 19:30
--- NOTE | 2017-09-07 13:24 | CP.CCUPN ---
<Liset Massey - Last Filed: 09/07/17 13:21> CCU Subjective - Physician Review Subjective (Free Text): Patient seen and examined at bedside. Patient currently intubated. ROS unobtainable due to patient's current clinical status. CCU Objective - Vital Signs / Intake & Output Vital Signs (Last 4 hours): Vital Signs Temp Pulse Resp BP Pulse Ox 09/07/17 13:00 110 H 24 92/61 L 99 09/07/17 12:00 97.7 F 108 H 32 H 93/68 L 98 09/07/17 11:00 111 H 21 99/70 L 100 09/07/17 10:00 111 H 21 96/67 L 100 Intake and Output (Last 8hrs): Intake & Output 09/06/17 09/07/17 09/07/17 22:59 06:59 14:59 Intake Total 725.359 582.541 493.6 Output Total 410 675 375 Balance 315.359 -92.459 118.6 Weight 177 lb 14.4 oz Intake: IV 189.359 92.641 Intake, IV Amount 326.0 129.9 353.6 Right Distal Port 56 Internal Jugular Right Internal Jugular 200 Right Medial Port 64 64 250 Internal Jugular Right Proximal Port 62.0 65.9 47.6 Internal Jugular Tube Feeding 160 160 140 Other 50 200 Output: Urine 310 675 375 Urethral (Andino) 310 675 375 Stool 100 - Physical Exam Head: Positive for: Atraumatic, Normocephalic Pupils: Positive for: Sluggish Extroacular Muscles: Negative for: EOMI Mouth: Positive for: Moist Mucous Membranes Respiratory/Chest: Positive for: Good Air Exchange, Other (intubated ) Cardiovascular: Positive for: Normal S1, S2, Tachycardic Abdomen: Positive for: Normal Bowel Sounds. Negative for: Distention Upper Extremity: Negative for: Edema Lower Extremity: Negative for: Edema Neurological: Negative for: GCS=15, Speech Normal Skin: Positive for: Normal Color Psychiatric: Negative for: Alert, Oriented x 3 - Medications Active Medications: Active Medications Generic Name Dose Route Start Last Admin Trade Name Freq PRN Reason Stop Dose Admin Albuterol/Ipratropium 3 ml 09/03/17 16:00 09/07/17 07:18 Duoneb 3 Mg/0.5 Mg (3 Ml) Ud INH 3 ml RQ8 EUSEBIO Administration Artificial Tears 1 gm 08/31/17 12:00 09/06/17 20:10 Lacri-Lube OS 1 gm Q6H PRN Administration Sedation Piperacillin Sod/Tazobactam Sod 3.375 gm in 50 mls @ 100 mls/hr 09/05/17 10: 30 09/07/17 09:31 Zosyn 3.375 Gm Iv Premix IVPB 100 mls/hr Q6H EUSEBIO Administration Propofol 1,000 mg in 100 mls @ 2.3 mls/hr 09/05/17 15:59 09/07/17 05:45 Diprivan IV 15 mcg/kg/min .Q24H PRN 6.899 mls/hr TITRATE PER MD ORDER Administration Protocol 5 MCG/KG/MIN Levetiracetam 1,000 mg/ 110 mls @ 420 mls/hr 09/06/17 18:00 09/07/17 05:39 Dextrose IVPB 420 mls/hr Q12H EUSEBIO Administration Midazolam HCl 100 mg/ Dextrose 100 mls @ 5 mls/hr 09/07/17 09:30 09/07/17 10: 51 IV 5 mg/hr .Q20H EUSEBIO 5 mls/hr Protocol Administration 5 MG/HR Pantoprazole Sodium 40 mg 08/31/17 10:00 09/07/17 09:30 Protonix Inj IVP 40 mg DAILY EUSEBIO Administration Potassium Chloride 20 meq 09/07/17 11:00 09/07/17 11:11 Potassium Chloride Oral Soln PO 20 meq BID EUSEBIO Administration Potassium Phos/Sodium Phos 1 pkt 09/01/17 10:30 09/07/17 11:11 Neutra-Phos NG 1 pkt Q6 EUSEBIO Administration Thiamine HCl 100 mg 08/30/17 22:15 09/07/17 09:30 Vitamin B1 Inj IV 100 mg DAILY EUSEBIO Administration - Patient Studies Lab Studies: Lab Studies 09/07/17 09/07/17 09/07/17 Range/Units 11:45 06:53 06:53 WBC 13.2 H (4.8-10.8) K/uL RBC 2.46 L (3.80-5.20) Mil/uL Hgb 7.4 L (11.0-16.0) g/dL Hct 22.2 L (34.0-47.0) % MCV 90.3 (81.0-99.0) fL MCH 29.9 (27.0-31.0) pg MCHC 33.1 (33.0-37.0) g/dL RDW 16.6 H (11.5-14.5) % Plt Count 128 L (130-400) K/uL MPV 8.2 (7.2-11.7) fL Neut % (Auto) 89.2 H (50.0-75.0) % Lymph % (Auto) 6.2 L (20.0-40.0) % [place] % (Auto) 3.5 (0.0-10.0) % Eos % (Auto) 0.9 (0.0-4.0) % Baso % (Auto) 0.2 (0.0-2.0) % Neut # 11.7 H (1.8-7.0) K/uL Lymph # 0.8 L (1.0-4.3) K/uL [place] # 0.5 (0.0-0.8) K/uL Eos # 0.1 (0.0-0.7) K/uL Baso # 0.0 (0.0-0.2) K/uL Neutrophils % (Manual) 93 H (50-75) % Lymphocytes % (Manual) 3 L (20-40) % Monocytes % (Manual) 2 (0-10) % Eosinophils % (Manual) 2 (0-4) % Platelet Estimate Slightly decreased L (NORMAL) Polychromasia Slight Hypochromasia (manual) Slight Anisocytosis (manual) Slight Target Cells Slight Ovalocytes Slight Puncture Site pCO2 (35-45) mm/Hg pO2 (80-100) mm/Hg HCO3 (21-28) mmol/L ABG pH (7.35-7.45) ABG Total CO2 (22-28) mmol/L ABG O2 Saturation (95-98) % ABG Base Excess (-2.0-3.0) mmol/L ABG Hemoglobin (11.7-17.4) g/dL ABG Carboxyhemoglobin (0.5-1.5) % POC ABG HHb (Measured) (0.0-5.0) % ABG Methemoglobin (0.0-3.0) % Stephen Test A-a O2 Difference mm/Hg Respiratory Index Hgb O2 Saturation (95.0-98.0) % Vent Mode Mechanical Rate FiO2 % Tidal Volume PEEP Sodium 129 L (132-148) mmol/L Potassium 3.6 (3.6-5.2) mmol/L Chloride 100 (98-107) mmol/L Carbon Dioxide 23 (22-30) mmol/L Anion Gap 10 (10-20) BUN 4 L (7-17) mg/dL Creatinine 0.3 L (0.7-1.2) mg/dL Est GFR ( Amer) > 60 Est GFR (Non-Af Amer) > 60 POC Glucose (mg/dL) 124 H (65-110) mg/dL Random Glucose 96 (65-105) mg/dL Calcium 8.6 (8.6-10.4) mg/dl Phosphorus 3.8 (2.5-4.5) mg/dL Magnesium 1.5 L (1.6-2.3) mg/dL Total Bilirubin 2.8 H (0.2-1.3) mg/dL AST 46 H D (14-36) U/L ALT 32 (9-52) U/L Alkaline Phosphatase 146 H (38-126) U/L Total Protein 4.6 L (6.3-8.3) g/dL Albumin 2.2 L (3.5-5.0) g/dL Globulin 2.4 (2.2-3.9) gm/dL Albumin/Globulin Ratio 0.9 L (1.0-2.1) 09/07/17 09/07/17 09/06/17 Range/Units 05:37 05:10 23:33 WBC (4.8-10.8) K/uL RBC (3.80-5.20) Mil/uL Hgb (11.0-16.0) g/dL Hct (34.0-47.0) % MCV (81.0-99.0) fL MCH (27.0-31.0) pg MCHC (33.0-37.0) g/dL RDW (11.5-14.5) % Plt Count (130-400) K/uL MPV (7.2-11.7) fL Neut % (Auto) (50.0-75.0) % Lymph % (Auto) (20.0-40.0) % [place] % (Auto) (0.0-10.0) % Eos % (Auto) (0.0-4.0) % Baso % (Auto) (0.0-2.0) % Neut # (1.8-7.0) K/uL Lymph # (1.0-4.3) K/uL [place] # (0.0-0.8) K/uL Eos # (0.0-0.7) K/uL Baso # (0.0-0.2) K/uL Neutrophils % (Manual) (50-75) % Lymphocytes % (Manual) (20-40) % Monocytes % (Manual) (0-10) % Eosinophils % (Manual) (0-4) % Platelet Estimate (NORMAL) Polychromasia Hypochromasia (manual) Anisocytosis (manual) Target Cells Ovalocytes Puncture Site Rr pCO2 38 (35-45) mm/Hg pO2 64 L (80-100) mm/Hg HCO3 23.9 (21-28) mmol/L ABG pH 7.40 (7.35-7.45) ABG Total CO2 24.7 (22-28) mmol/L ABG O2 Saturation 94.4 L (95-98) % ABG Base Excess -1.1 (-2.0-3.0) mmol/L ABG Hemoglobin 12.4 (11.7-17.4) g/dL ABG Carboxyhemoglobin 2.6 H (0.5-1.5) % POC ABG HHb (Measured) 5.4 H (0.0-5.0) % ABG Methemoglobin 0.2 (0.0-3.0) % Stephen Test Pos A-a O2 Difference 174.0 mm/Hg Respiratory Index 2.7 Hgb O2 Saturation 91.8 L (95.0-98.0) % Vent Mode Prvc Mechanical Rate 10 FiO2 40.0 % Tidal Volume 450 PEEP 5 Sodium (132-148) mmol/L Potassium (3.6-5.2) mmol/L Chloride (98-107) mmol/L Carbon Dioxide (22-30) mmol/L Anion Gap (10-20) BUN (7-17) mg/dL Creatinine (0.7-1.2) mg/dL Est GFR ( Amer) Est GFR (Non-Af Amer) POC Glucose (mg/dL) 117 H 109 (65-110) mg/dL Random Glucose (65-105) mg/dL Calcium (8.6-10.4) mg/dl Phosphorus (2.5-4.5) mg/dL Magnesium (1.6-2.3) mg/dL Total Bilirubin (0.2-1.3) mg/dL AST (14-36) U/L ALT (9-52) U/L Alkaline Phosphatase (38-126) U/L Total Protein (6.3-8.3) g/dL Albumin (3.5-5.0) g/dL Globulin (2.2-3.9) gm/dL Albumin/Globulin Ratio (1.0-2.1) 09/06/17 Range/Units 17:48 WBC (4.8-10.8) K/uL RBC (3.80-5.20) Mil/uL Hgb (11.0-16.0) g/dL Hct (34.0-47.0) % MCV (81.0-99.0) fL MCH (27.0-31.0) pg MCHC (33.0-37.0) g/dL RDW (11.5-14.5) % Plt Count (130-400) K/uL MPV (7.2-11.7) fL Neut % (Auto) (50.0-75.0) % Lymph % (Auto) (20.0-40.0) % [place] % (Auto) (0.0-10.0) % Eos % (Auto) (0.0-4.0) % Baso % (Auto) (0.0-2.0) % Neut # (1.8-7.0) K/uL Lymph # (1.0-4.3) K/uL [place] # (0.0-0.8) K/uL Eos # (0.0-0.7) K/uL Baso # (0.0-0.2) K/uL Neutrophils % (Manual) (50-75) % Lymphocytes % (Manual) (20-40) % Monocytes % (Manual) (0-10) % Eosinophils % (Manual) (0-4) % Platelet Estimate (NORMAL) Polychromasia Hypochromasia (manual) Anisocytosis (manual) Target Cells Ovalocytes Puncture Site pCO2 (35-45) mm/Hg pO2 (80-100) mm/Hg HCO3 (21-28) mmol/L ABG pH (7.35-7.45) ABG Total CO2 (22-28) mmol/L ABG O2 Saturation (95-98) % ABG Base Excess (-2.0-3.0) mmol/L ABG Hemoglobin (11.7-17.4) g/dL ABG Carboxyhemoglobin (0.5-1.5) % POC ABG HHb (Measured) (0.0-5.0) % ABG Methemoglobin (0.0-3.0) % Stephen Test A-a O2 Difference mm/Hg Respiratory Index Hgb O2 Saturation (95.0-98.0) % Vent Mode Mechanical Rate FiO2 % Tidal Volume PEEP Sodium (132-148) mmol/L Potassium (3.6-5.2) mmol/L Chloride (98-107) mmol/L Carbon Dioxide (22-30) mmol/L Anion Gap (10-20) BUN (7-17) mg/dL Creatinine (0.7-1.2) mg/dL Est GFR ( Amer) Est GFR (Non-Af Amer) POC Glucose (mg/dL) 149 H (65-110) mg/dL Random Glucose (65-105) mg/dL Calcium (8.6-10.4) mg/dl Phosphorus (2.5-4.5) mg/dL Magnesium (1.6-2.3) mg/dL Total Bilirubin (0.2-1.3) mg/dL AST (14-36) U/L ALT (9-52) U/L Alkaline Phosphatase (38-126) U/L Total Protein (6.3-8.3) g/dL Albumin (3.5-5.0) g/dL Globulin (2.2-3.9) gm/dL Albumin/Globulin Ratio (1.0-2.1) Laboratory Results - last 24 hr 09/06/17 09/06/17 09/07/17 17:48 23:33 05:10 WBC RBC Hgb Hct MCV MCH MCHC RDW Plt Count MPV Neut % (Auto) Lymph % (Auto) [place] % (Auto) Eos % (Auto) Baso % (Auto) Neut # Lymph # [place] # Eos # Baso # Neutrophils % (Manual) Lymphocytes % (Manual) Monocytes % (Manual) Eosinophils % (Manual) Platelet Estimate Polychromasia Hypochromasia (manual) Anisocytosis (manual) Target Cells Ovalocytes Puncture Site Rr pCO2 38 pO2 64 L HCO3 23.9 ABG pH 7.40 ABG Total CO2 24.7 ABG O2 Saturation 94.4 L ABG Base Excess -1.1 ABG Hemoglobin 12.4 ABG Carboxyhemoglobin 2.6 H POC ABG HHb (Measured) 5.4 H ABG Methemoglobin 0.2 Stephen Test Pos A-a O2 Difference 174.0 Respiratory Index 2.7 Hgb O2 Saturation 91.8 L Vent Mode Prvc Mechanical Rate 10 FiO2 40.0 Tidal Volume 450 PEEP 5 Sodium Potassium Chloride Carbon Dioxide Anion Gap BUN Creatinine Est GFR ( Amer) Est GFR (Non-Af Amer) POC Glucose (mg/dL) 149 H 109 Random Glucose Calcium Phosphorus Magnesium Total Bilirubin AST ALT Alkaline Phosphatase Total Protein Albumin Globulin Albumin/Globulin Ratio 09/07/17 09/07/17 09/07/17 05:37 06:53 06:53 WBC 13.2 H RBC 2.46 L Hgb 7.4 L Hct 22.2 L MCV 90.3 MCH 29.9 MCHC 33.1 RDW 16.6 H Plt Count 128 L MPV 8.2 Neut % (Auto) 89.2 H Lymph % (Auto) 6.2 L [place] % (Auto) 3.5 Eos % (Auto) 0.9 Baso % (Auto) 0.2 Neut # 11.7 H Lymph # 0.8 L [place] # 0.5 Eos # 0.1 Baso # 0.0 Neutrophils % (Manual) 93 H Lymphocytes % (Manual) 3 L Monocytes % (Manual) 2 Eosinophils % (Manual) 2 Platelet Estimate Slightly decreased L Polychromasia Slight Hypochromasia (manual) Slight Anisocytosis (manual) Slight Target Cells Slight Ovalocytes Slight Puncture Site pCO2 pO2 HCO3 ABG pH ABG Total CO2 ABG O2 Saturation ABG Base Excess ABG Hemoglobin ABG Carboxyhemoglobin POC ABG HHb (Measured) ABG Methemoglobin Stephen Test A-a O2 Difference Respiratory Index Hgb O2 Saturation Vent Mode Mechanical Rate FiO2 Tidal Volume PEEP Sodium 129 L Potassium 3.6 Chloride 100 Carbon Dioxide 23 Anion Gap 10 BUN 4 L Creatinine 0.3 L Est GFR ( Amer) > 60 Est GFR (Non-Af Amer) > 60 POC Glucose (mg/dL) 117 H Random Glucose 96 Calcium 8.6 Phosphorus 3.8 Magnesium 1.5 L Total Bilirubin 2.8 H AST 46 H D ALT 32 Alkaline Phosphatase 146 H Total Protein 4.6 L Albumin 2.2 L Globulin 2.4 Albumin/Globulin Ratio 0.9 L 09/07/17 11:45 WBC RBC Hgb Hct MCV MCH MCHC RDW Plt Count MPV Neut % (Auto) Lymph % (Auto) [place] % (Auto) Eos % (Auto) Baso % (Auto) Neut # Lymph # [place] # Eos # Baso # Neutrophils % (Manual) Lymphocytes % (Manual) Monocytes % (Manual) Eosinophils % (Manual) Platelet Estimate Polychromasia Hypochromasia (manual) Anisocytosis (manual) Target Cells Ovalocytes Puncture Site pCO2 pO2 HCO3 ABG pH ABG Total CO2 ABG O2 Saturation ABG Base Excess ABG Hemoglobin ABG Carboxyhemoglobin POC ABG HHb (Measured) ABG Methemoglobin Stephen Test A-a O2 Difference Respiratory Index Hgb O2 Saturation Vent Mode Mechanical Rate FiO2 Tidal Volume PEEP Sodium Potassium Chloride Carbon Dioxide Anion Gap BUN Creatinine Est GFR ( Amer) Est GFR (Non-Af Amer) POC Glucose (mg/dL) 124 H Random Glucose Calcium Phosphorus Magnesium Total Bilirubin AST ALT Alkaline Phosphatase Total Protein Albumin Globulin Albumin/Globulin Ratio Fingerstick Blood Sugar Results: 127 Review of Systems - Review of Systems Systems not reviewed;Unavailable: Intubated Assessment/Plan - Assessment and Plan (Free Text) Assessment: 36 year old female with past medical history of anemia and alcohol abuse, who was found unconscious by . EMS was called and patient was found to be in Asystole, ACLS protocol was initiated and 2 rounds of epinephrine and then ROSC. Patient was unconscious in the ED. Subsequently, patient was admitted to the ICU and hypothermia protocol was initiated. Today: Family still undecided on mcc goals of care. Plan: Neuro: Intubated, Acute seizures Neurologist, Dr. Pugh---> help appreciated * Management as per recommendation Medication/Management: * Keppra 500mg IV Q12H * Versed drip * Propofol (Titratable) Imaging: * EEG (08/31/17): globally abnormal EEG because of persistent spike and wave activities consistent with status epilepticus. Please correlate the findings with neurological and radiological studies * Cerebral blood flow (09/03/17): does not conform to nuclear medicine diagnosis of brain . There is a faint cerebral flow, the study is considered technically suboptimal for reasons related to technique and poor visualization of carotid arteries. * CT head w/o contrast (09/03/17): No mass effect or edema. No atrophy or chronic microvascular. * EEG (09/06): status epilepticus Cardio: Cardiopulmonary Arrest Management: * Intubated * Hypothermia protocol was initiated Pulm: Respiratory distress secondary to cardiac arrest Management: * Intubated * sputum culture: MRSA * Zosyn 3.375 gm q6h GI: Diarrhea * C. Dif negative Renal: Hyponatremia Nephrology, Dr. Ramos---> Help appreciated * Management as per recommendation * Potassium and Magnesium repleted * KCl 20mEq BID Heme: anemia * H/H dropped from 8.5/24.4 to 7.4/22.2 * monitor, if decreases will transfuse Psych: Alcohol abuse disorder * Thiamine 100mg IV daily * Psychiatric consult once patient is clinically stable Prophylaxis measures: * R IJ in place * DVT: SCDs, Heparin 5,000units SC Q12H * GI: Protonix 40mg IV daily * tube feeds: jevity 20cc/hr <Lui Morrison - Last Filed: 09/07/17 15:28> CCU Objective - Vital Signs / Intake & Output Vital Signs (Last 4 hours): Vital Signs Temp Pulse Resp BP Pulse Ox 09/07/17 14:00 117 H 27 H 96/67 L 100 09/07/17 13:00 110 H 24 92/61 L 99 09/07/17 12:00 97.7 F 108 H 32 H 93/68 L 98 Intake and Output (Last 8hrs): Intake & Output 09/07/17 09/07/17 09/07/17 06:59 14:59 22:59 Intake Total 582.541 628.4 Output Total 675 475 Balance -92.459 153.4 Weight 177 lb 14.4 oz Intake: IV 92.641 100 Intake, IV Amount 129.9 368.4 Right Distal Port 64 Internal Jugular Right Medial Port 64 250 Internal Jugular Right Proximal Port 65.9 54.4 Internal Jugular Tube Feeding 160 160 Other 200 Output: Urine 675 475 Urethral (Andino) 675 475 - Medications Active Medications: Active Medications Generic Name Dose Route Start Last Admin Trade Name Freq PRN Reason Stop Dose Admin Albuterol/Ipratropium 3 ml 09/03/17 16:00 09/07/17 07:18 Duoneb 3 Mg/0.5 Mg (3 Ml) Ud INH 3 ml RQ8 EUSEBIO Administration Artificial Tears 1 gm 08/31/17 12:00 09/06/17 20:10 Lacri-Lube OS 1 gm Q6H PRN Administration Sedation Piperacillin Sod/Tazobactam Sod 3.375 gm in 50 mls @ 100 mls/hr 09/05/17 10: 30 09/07/17 09:31 Zosyn 3.375 Gm Iv Premix IVPB 100 mls/hr Q6H EUSEBIO Administration Propofol 1,000 mg in 100 mls @ 2.3 mls/hr 09/05/17 15:59 09/07/17 14:40 Diprivan IV 15 mcg/kg/min .Q24H PRN 6.899 mls/hr TITRATE PER MD ORDER Administration Protocol 5 MCG/KG/MIN Levetiracetam 1,000 mg/ 110 mls @ 420 mls/hr 09/06/17 18:00 09/07/17 05:39 Dextrose IVPB 420 mls/hr Q12H EUSEBIO Administration Midazolam HCl 100 mg/ Dextrose 100 mls @ 5 mls/hr 09/07/17 09:30 09/07/17 10: 51 IV 5 mg/hr .Q20H EUSEBIO 5 mls/hr Protocol Administration 5 MG/HR Pantoprazole Sodium 40 mg 08/31/17 10:00 09/07/17 09:30 Protonix Inj IVP 40 mg DAILY EUSEBIO Administration Potassium Chloride 20 meq 09/07/17 11:00 09/07/17 11:11 Potassium Chloride Oral Soln PO 20 meq BID EUSEBIO Administration Potassium Phos/Sodium Phos 1 pkt 09/01/17 10:30 09/07/17 11:11 Neutra-Phos NG 1 pkt Q6 EUSEBIO Administration Thiamine HCl 100 mg 08/30/17 22:15 09/07/17 09:30 Vitamin B1 Inj IV 100 mg DAILY EUSEBIO Administration - Patient Studies Lab Studies: Lab Studies 09/07/17 09/07/17 09/07/17 Range/Units 11:45 06:53 06:53 WBC 13.2 H (4.8-10.8) K/uL RBC 2.46 L (3.80-5.20) Mil/uL Hgb 7.4 L (11.0-16.0) g/dL Hct 22.2 L (34.0-47.0) % MCV 90.3 (81.0-99.0) fL MCH 29.9 (27.0-31.0) pg MCHC 33.1 (33.0-37.0) g/dL RDW 16.6 H (11.5-14.5) % Plt Count 128 L (130-400) K/uL MPV 8.2 (7.2-11.7) fL Neut % (Auto) 89.2 H (50.0-75.0) % Lymph % (Auto) 6.2 L (20.0-40.0) % [place] % (Auto) 3.5 (0.0-10.0) % Eos % (Auto) 0.9 (0.0-4.0) % Baso % (Auto) 0.2 (0.0-2.0) % Neut # 11.7 H (1.8-7.0) K/uL Lymph # 0.8 L (1.0-4.3) K/uL [place] # 0.5 (0.0-0.8) K/uL Eos # 0.1 (0.0-0.7) K/uL Baso # 0.0 (0.0-0.2) K/uL Neutrophils % (Manual) 93 H (50-75) % Lymphocytes % (Manual) 3 L (20-40) % Monocytes % (Manual) 2 (0-10) % Eosinophils % (Manual) 2 (0-4) % Platelet Estimate Slightly decreased L (NORMAL) Polychromasia Slight Hypochromasia (manual) Slight Anisocytosis (manual) Slight Target Cells Slight Ovalocytes Slight Puncture Site pCO2 (35-45) mm/Hg pO2 (80-100) mm/Hg HCO3 (21-28) mmol/L ABG pH (7.35-7.45) ABG Total CO2 (22-28) mmol/L ABG O2 Saturation (95-98) % ABG Base Excess (-2.0-3.0) mmol/L ABG Hemoglobin (11.7-17.4) g/dL ABG Carboxyhemoglobin (0.5-1.5) % POC ABG HHb (Measured) (0.0-5.0) % ABG Methemoglobin (0.0-3.0) % Stephen Test A-a O2 Difference mm/Hg Respiratory Index Hgb O2 Saturation (95.0-98.0) % Vent Mode Mechanical Rate FiO2 % Tidal Volume PEEP Sodium 129 L (132-148) mmol/L Potassium 3.6 (3.6-5.2) mmol/L Chloride 100 (98-107) mmol/L Carbon Dioxide 23 (22-30) mmol/L Anion Gap 10 (10-20) BUN 4 L (7-17) mg/dL Creatinine 0.3 L (0.7-1.2) mg/dL Est GFR ( Amer) > 60 Est GFR (Non-Af Amer) > 60 POC Glucose (mg/dL) 124 H (65-110) mg/dL Random Glucose 96 (65-105) mg/dL Calcium 8.6 (8.6-10.4) mg/dl Phosphorus 3.8 (2.5-4.5) mg/dL Magnesium 1.5 L (1.6-2.3) mg/dL Total Bilirubin 2.8 H (0.2-1.3) mg/dL AST 46 H D (14-36) U/L ALT 32 (9-52) U/L Alkaline Phosphatase 146 H (38-126) U/L Total Protein 4.6 L (6.3-8.3) g/dL Albumin 2.2 L (3.5-5.0) g/dL Globulin 2.4 (2.2-3.9) gm/dL Albumin/Globulin Ratio 0.9 L (1.0-2.1) 09/07/17 09/07/17 09/06/17 Range/Units 05:37 05:10 23:33 WBC (4.8-10.8) K/uL RBC (3.80-5.20) Mil/uL Hgb (11.0-16.0) g/dL Hct (34.0-47.0) % MCV (81.0-99.0) fL MCH (27.0-31.0) pg MCHC (33.0-37.0) g/dL RDW (11.5-14.5) % Plt Count (130-400) K/uL MPV (7.2-11.7) fL Neut % (Auto) (50.0-75.0) % Lymph % (Auto) (20.0-40.0) % [place] % (Auto) (0.0-10.0) % Eos % (Auto) (0.0-4.0) % Baso % (Auto) (0.0-2.0) % Neut # (1.8-7.0) K/uL Lymph # (1.0-4.3) K/uL [place] # (0.0-0.8) K/uL Eos # (0.0-0.7) K/uL Baso # (0.0-0.2) K/uL Neutrophils % (Manual) (50-75) % Lymphocytes % (Manual) (20-40) % Monocytes % (Manual) (0-10) % Eosinophils % (Manual) (0-4) % Platelet Estimate (NORMAL) Polychromasia Hypochromasia (manual) Anisocytosis (manual) Target Cells Ovalocytes Puncture Site Rr pCO2 38 (35-45) mm/Hg pO2 64 L (80-100) mm/Hg HCO3 23.9 (21-28) mmol/L ABG pH 7.40 (7.35-7.45) ABG Total CO2 24.7 (22-28) mmol/L ABG O2 Saturation 94.4 L (95-98) % ABG Base Excess -1.1 (-2.0-3.0) mmol/L ABG Hemoglobin 12.4 (11.7-17.4) g/dL ABG Carboxyhemoglobin 2.6 H (0.5-1.5) % POC ABG HHb (Measured) 5.4 H (0.0-5.0) % ABG Methemoglobin 0.2 (0.0-3.0) % Stephen Test Pos A-a O2 Difference 174.0 mm/Hg Respiratory Index 2.7 Hgb O2 Saturation 91.8 L (95.0-98.0) % Vent Mode Prvc Mechanical Rate 10 FiO2 40.0 % Tidal Volume 450 PEEP 5 Sodium (132-148) mmol/L Potassium (3.6-5.2) mmol/L Chloride (98-107) mmol/L Carbon Dioxide (22-30) mmol/L Anion Gap (10-20) BUN (7-17) mg/dL Creatinine (0.7-1.2) mg/dL Est GFR ( Amer) Est GFR (Non-Af Amer) POC Glucose (mg/dL) 117 H 109 (65-110) mg/dL Random Glucose (65-105) mg/dL Calcium (8.6-10.4) mg/dl Phosphorus (2.5-4.5) mg/dL Magnesium (1.6-2.3) mg/dL Total Bilirubin (0.2-1.3) mg/dL AST (14-36) U/L ALT (9-52) U/L Alkaline Phosphatase (38-126) U/L Total Protein (6.3-8.3) g/dL Albumin (3.5-5.0) g/dL Globulin (2.2-3.9) gm/dL Albumin/Globulin Ratio (1.0-2.1) 09/06/17 Range/Units 17:48 WBC (4.8-10.8) K/uL RBC (3.80-5.20) Mil/uL Hgb (11.0-16.0) g/dL Hct (34.0-47.0) % MCV (81.0-99.0) fL MCH (27.0-31.0) pg MCHC (33.0-37.0) g/dL RDW (11.5-14.5) % Plt Count (130-400) K/uL MPV (7.2-11.7) fL Neut % (Auto) (50.0-75.0) % Lymph % (Auto) (20.0-40.0) % [place] % (Auto) (0.0-10.0) % Eos % (Auto) (0.0-4.0) % Baso % (Auto) (0.0-2.0) % Neut # (1.8-7.0) K/uL Lymph # (1.0-4.3) K/uL [place] # (0.0-0.8) K/uL Eos # (0.0-0.7) K/uL Baso # (0.0-0.2) K/uL Neutrophils % (Manual) (50-75) % Lymphocytes % (Manual) (20-40) % Monocytes % (Manual) (0-10) % Eosinophils % (Manual) (0-4) % Platelet Estimate (NORMAL) Polychromasia Hypochromasia (manual) Anisocytosis (manual) Target Cells Ovalocytes Puncture Site pCO2 (35-45) mm/Hg pO2 (80-100) mm/Hg HCO3 (21-28) mmol/L ABG pH (7.35-7.45) ABG Total CO2 (22-28) mmol/L ABG O2 Saturation (95-98) % ABG Base Excess (-2.0-3.0) mmol/L ABG Hemoglobin (11.7-17.4) g/dL ABG Carboxyhemoglobin (0.5-1.5) % POC ABG HHb (Measured) (0.0-5.0) % ABG Methemoglobin (0.0-3.0) % Stephen Test A-a O2 Difference mm/Hg Respiratory Index Hgb O2 Saturation (95.0-98.0) % Vent Mode Mechanical Rate FiO2 % Tidal Volume PEEP Sodium (132-148) mmol/L Potassium (3.6-5.2) mmol/L Chloride (98-107) mmol/L Carbon Dioxide (22-30) mmol/L Anion Gap (10-20) BUN (7-17) mg/dL Creatinine (0.7-1.2) mg/dL Est GFR ( Amer) Est GFR (Non-Af Amer) POC Glucose (mg/dL) 149 H (65-110) mg/dL Random Glucose (65-105) mg/dL Calcium (8.6-10.4) mg/dl Phosphorus (2.5-4.5) mg/dL Magnesium (1.6-2.3) mg/dL Total Bilirubin (0.2-1.3) mg/dL AST (14-36) U/L ALT (9-52) U/L Alkaline Phosphatase (38-126) U/L Total Protein (6.3-8.3) g/dL Albumin (3.5-5.0) g/dL Globulin (2.2-3.9) gm/dL Albumin/Globulin Ratio (1.0-2.1) Laboratory Results - last 24 hr 09/06/17 09/06/17 09/07/17 17:48 23:33 05:10 WBC RBC Hgb Hct MCV MCH MCHC RDW Plt Count MPV Neut % (Auto) Lymph % (Auto) [place] % (Auto) Eos % (Auto) Baso % (Auto) Neut # Lymph # [place] # Eos # Baso # Neutrophils % (Manual) Lymphocytes % (Manual) Monocytes % (Manual) Eosinophils % (Manual) Platelet Estimate Polychromasia Hypochromasia (manual) Anisocytosis (manual) Target Cells Ovalocytes Puncture Site Rr pCO2 38 pO2 64 L HCO3 23.9 ABG pH 7.40 ABG Total CO2 24.7 ABG O2 Saturation 94.4 L ABG Base Excess -1.1 ABG Hemoglobin 12.4 ABG Carboxyhemoglobin 2.6 H POC ABG HHb (Measured) 5.4 H ABG Methemoglobin 0.2 Stephen Test Pos A-a O2 Difference 174.0 Respiratory Index 2.7 Hgb O2 Saturation 91.8 L Vent Mode Prvc Mechanical Rate 10 FiO2 40.0 Tidal Volume 450 PEEP 5 Sodium Potassium Chloride Carbon Dioxide Anion Gap BUN Creatinine Est GFR ( Amer) Est GFR (Non-Af Amer) POC Glucose (mg/dL) 149 H 109 Random Glucose Calcium Phosphorus Magnesium Total Bilirubin AST ALT Alkaline Phosphatase Total Protein Albumin Globulin Albumin/Globulin Ratio 09/07/17 09/07/17 09/07/17 05:37 06:53 06:53 WBC 13.2 H RBC 2.46 L Hgb 7.4 L Hct 22.2 L MCV 90.3 MCH 29.9 MCHC 33.1 RDW 16.6 H Plt Count 128 L MPV 8.2 Neut % (Auto) 89.2 H Lymph % (Auto) 6.2 L [place] % (Auto) 3.5 Eos % (Auto) 0.9 Baso % (Auto) 0.2 Neut # 11.7 H Lymph # 0.8 L [place] # 0.5 Eos # 0.1 Baso # 0.0 Neutrophils % (Manual) 93 H Lymphocytes % (Manual) 3 L Monocytes % (Manual) 2 Eosinophils % (Manual) 2 Platelet Estimate Slightly decreased L Polychromasia Slight Hypochromasia (manual) Slight Anisocytosis (manual) Slight Target Cells Slight Ovalocytes Slight Puncture Site pCO2 pO2 HCO3 ABG pH ABG Total CO2 ABG O2 Saturation ABG Base Excess ABG Hemoglobin ABG Carboxyhemoglobin POC ABG HHb (Measured) ABG Methemoglobin Stephen Test A-a O2 Difference Respiratory Index Hgb O2 Saturation Vent Mode Mechanical Rate FiO2 Tidal Volume PEEP Sodium 129 L Potassium 3.6 Chloride 100 Carbon Dioxide 23 Anion Gap 10 BUN 4 L Creatinine 0.3 L Est GFR ( Amer) > 60 Est GFR (Non-Af Amer) > 60 POC Glucose (mg/dL) 117 H Random Glucose 96 Calcium 8.6 Phosphorus 3.8 Magnesium 1.5 L Total Bilirubin 2.8 H AST 46 H D ALT 32 Alkaline Phosphatase 146 H Total Protein 4.6 L Albumin 2.2 L Globulin 2.4 Albumin/Globulin Ratio 0.9 L 09/07/17 11:45 WBC RBC Hgb Hct MCV MCH MCHC RDW Plt Count MPV Neut % (Auto) Lymph % (Auto) [place] % (Auto) Eos % (Auto) Baso % (Auto) Neut # Lymph # [place] # Eos # Baso # Neutrophils % (Manual) Lymphocytes % (Manual) Monocytes % (Manual) Eosinophils % (Manual) Platelet Estimate Polychromasia Hypochromasia (manual) Anisocytosis (manual) Target Cells Ovalocytes Puncture Site pCO2 pO2 HCO3 ABG pH ABG Total CO2 ABG O2 Saturation ABG Base Excess ABG Hemoglobin ABG Carboxyhemoglobin POC ABG HHb (Measured) ABG Methemoglobin Stephen Test A-a O2 Difference Respiratory Index Hgb O2 Saturation Vent Mode Mechanical Rate FiO2 Tidal Volume PEEP Sodium Potassium Chloride Carbon Dioxide Anion Gap BUN Creatinine Est GFR ( Amer) Est GFR (Non-Af Amer) POC Glucose (mg/dL) 124 H Random Glucose Calcium Phosphorus Magnesium Total Bilirubin AST ALT Alkaline Phosphatase Total Protein Albumin Globulin Albumin/Globulin Ratio Assessment/Plan - Assessment and Plan (Free Text) Plan: CCM Hx as noted by housestaff. Intubated, unresponsive Perrl Neck- no jvd lungs- bilat bs Heart-rr aBd- benign eXt- nontender Neuro- Unresponsive Labs-reviewed A&P S/P Cardiac Arrest Anoxic Encephalopathy Status Epilepticus Anemia ETOH Abuse cont vent support cont meds and AED's Versed and Propofol Maintain optimal lytes f/u cbc and labs DVT & GI prophylaxis Neurology following for seizures Awaiting family decision on goals of care d/w housestaff critical care time 35 min
[2017-09-07 17:51] LABS: BASO % 0.3 % (0.0-2.0); EOS # 0.1 K/uL (0.0-0.7); EOS % 0.8 % (0.0-4.0); HEMATOCRIT 22.2 % (34.0-47.0); LYMPH # 0.9 K/uL (1.0-4.3); LYMPH % 7.3 % (20.0-40.0); MEAN CELL VOLUME 90.2 fL (81.0-99.0); MEAN CORPUSCULAR HEMOGLOBIN 29.9 pg (27.0-31.0); MEAN CORPUSCULAR HGB CONC 33.2 g/dL (33.0-37.0); MEAN PLATELET VOLUME 8.3 fL (7.2-11.7); MONO # 0.4 K/uL (0.0-0.8); PLATELET COUNT 139 K/uL (130-400); RED CELL DISTRIBUTION WIDTH 16.4 % (11.5-14.5); WHITE BLOOD COUNT 12.8 K/uL (4.8-10.8)
[2017-09-07 19:24] LABS: EOSINOPHIL 1 % (0-4); NEUTROPHIL 92 % (50-75); TOTAL CELLS COUNTED 100
--- NOTE | 2017-09-07 22:26 | PN ---
DATE: 09/07/2017 SUBJECTIVE: The patient was seen and examined at bedside. The patient's mental status remained the same, remaining intubated, sedated with intermittent seizures. PHYSICAL EXAMINATION: VITAL SIGNS: Blood pressure is 99/67, pulse 118, respirations 21, temperature 97.5 degrees Fahrenheit, and O2 sat is 100% on 40% FiO2. Tidal volume 450, set rate 14 and PEEP of 5. HEENT: Pupils are sluggishly reacting to light. No icterus. Positive pallor. ET tube and gastric tube in the oral cavity. NECK: Supple. No JVD. LUNGS: Bilateral vesicular breath sounds. Bilateral basal crackles. CARDIOVASCULAR SYSTEM: S1 and S2 present, regular, tachycardic. ABDOMEN: Soft. Bowel sounds present. CENTRAL NERVOUS SYSTEM: Sedated, intubated and unresponsive. Involuntary movements noted. EXTREMITIES: No edema. MEDICATIONS: Include DuoNeb, artificial tears, Keppra 1 g q. 12 hours, Versed drip 5 mg/hour, Protonix 40 mg IV daily, Zosyn 3.375 q. 6 hours, KCl 20 mEq p.o. b.i.d., Neutra-Phos 1 pack via NG tube q. 6 hours, propofol, thiamine 100 mg daily. LABORATORY DATA: Labs from this morning; WBC 12.8, hemoglobin 7.4, hematocrit 22.2, platelets 139. Sodium 129, potassium 3.6, chloride 100, bicarbonate 23, BUN 4, creatinine 0.3, glucose 117, phosphorus 3.8, magnesium 1.5, total bilirubin 2.8. AST 46, ALT 32, alkaline phosphatase 146. ASSESSMENT AND PLAN: Young female with ETOH abuse, substance abuse, chronic back problems, wheelchair bound, admitted status post cardiac arrest with multiple electrolyte imbalance, vent dependent, respiratory failure, seizures, anoxic encephalopathy, on multiple antiseizure medications. Neuro status remains the same. Respiratory status remains the same on ventilatory support with 40% FiO2, we will keep the saturations more than 90%. We will continue with gastrointestinal and deep venous thrombosis prophylaxis. We will continue with other current medications, supplement magnesium, supplement K-Phos and potassium. Awaiting for the patient's families decision regarding DNR and terminal extubation. Prognosis is very poor. We will continue with supportive care. Phoenix Caballero MD [facility] # [phone]
[2017-09-08] MEDS: Albuterol-Ipratrop 3 mg / 0.5 (3 ml) UD INH SCH ×3 (00:52→18:26)
[2017-09-08] MEDS: Propofol 10 mg/ml 1,000 MG/100 ML VIAL IV PRN ×4 (04:22→18:13)
[2017-09-08] MEDS: Midazolam 50 mg/10 ml 100 MG in Dextrose 5% In Water 80 ML IV SCH ×3 (04:26→18:39)
[2017-09-08] MEDS: Piperacill/Tazo 3.375gm in Dex 3.375 GM/50 ML BAG IVPB SCH ×3 (04:27→16:42)
[2017-09-08] MEDS: Potassium & Sodium Phosphate NG SCH ×3 (05:42→17:03)
[2017-09-08 06:38] LABS: BASO % 0.2 % (0.0-2.0); EOS # 0.1 K/uL (0.0-0.7); EOS % 0.9 % (0.0-4.0); HEMATOCRIT 23.4 % (34.0-47.0); LYMPH # 1.2 K/uL (1.0-4.3); MEAN CELL VOLUME 90.4 fL (81.0-99.0); MEAN CORPUSCULAR HEMOGLOBIN 29.6 pg (27.0-31.0); MEAN CORPUSCULAR HGB CONC 32.8 g/dL (33.0-37.0); MEAN PLATELET VOLUME 8.4 fL (7.2-11.7); MONO # 0.4 K/uL (0.0-0.8); MONO % 3.2 % (0.0-10.0); PLATELET COUNT 175 K/uL (130-400); RED CELL DISTRIBUTION WIDTH 16.5 % (11.5-14.5); WHITE BLOOD COUNT 13.6 K/uL (4.8-10.8)
[2017-09-08 06:44] LABS: CHLORIDE 97 mmol/L (98-107); SODIUM 129 mmol/L (132-148)
[2017-09-08 06:45] LABS: POTASSIUM 4.1 mmol/L (3.6-5.2)
[2017-09-08 06:46] LABS: GFR AFRICAN-AMERICAN > 60
[2017-09-08 06:47] LABS: ALKALINE PHOSPHATASE 192 U/L (38-126); ALT/SGPT 44 U/L (9-52); AST/SGOT 74 U/L (14-36); BILIRUBIN,TOTAL 2.6 mg/dL (0.2-1.3); BLOOD UREA NITROGEN 4 mg/dL (7-17); CALCIUM 8.6 mg/dl (8.6-10.4); CARBON DIOXIDE 24 mmol/L (22-30); GLUCOSE,RANDOM 103 mg/dL (65-105); PHOSPHOROUS 4.3 mg/dL (2.5-4.5); TOTAL PROTEIN 5.3 g/dL (6.3-8.3)
[2017-09-08 06:48] LABS: MAGNESIUM 1.5 mg/dL (1.6-2.3)
[2017-09-08] MEDS: Magnesium Sulfate 1 gm in D5W 1 GM/100 ML BAG IVPB SCH ×2 (09:22→10:37)
[2017-09-08] MEDS: Thiamine 100 mg/ml Inj IV SCH (09:22)
[2017-09-08 09:35] LABS: NEUTROPHIL 89 % (50-75); TOTAL CELLS COUNTED 100
[2017-09-08 09:37] LABS: LARGE PLATELETS PRESENT
--- NOTE | 2017-09-08 10:02 | RAD ---
HISTORY: intubated COMPARISON: 09/07/2017 FINDINGS: LUNGS: Lines and tubes in stable position. Prominent confluent opacification of the left pete thorax. Moderate to severe venous congestion. Biapical pleural thickening. PLEURA: As above. CARDIOVASCULAR: Normal. OSSEOUS STRUCTURES: No significant abnormalities. VISUALIZED UPPER ABDOMEN: Normal. OTHER FINDINGS: None. IMPRESSION: Lines and tubes in stable position. Prominent confluent opacification of the left pete thorax. Moderate to severe venous congestion. Biapical pleural thickening.
[2017-09-08] MEDS: Potassium Chloride 20 mEq/15 ml LIQ UD PO SCH (11:38)
--- NOTE | 2017-09-08 12:51 | PN ---
DATE: 09/08/2017 NEUROLOGICAL PROBLEM: Status post anoxic encephalopathy with status epilepticus. SUBJECTIVE: The patient has been continuously seizing, needs Diprivan titration with Keppra. The patient is now with sedation, comatose. Eyes are closed. No corneal reflex. No oculocephalic. No pupillary reflex. Flaccid quadriplegia. The patient attained irreversible insult to brain. On long-term management, the patient should be either on tracheostomy and the PEG or terminal extubation. CT of the head also requested for followup today. Emory Pugh MD
--- NOTE | 2017-09-08 14:52 | CP.PCM.PN ---
Subjective - Date & Time of Evaluation Date of Evaluation: 09/08/17 Time of Evaluation: 15:00 - Subjective Subjective: Progress note dictated #[id number] Objective - Vital Signs/Intake and Output Vital Signs (last 24 hours): Temp Pulse Resp BP Pulse Ox 99.8 F H 133 H 17 114/71 97 09/08/17 14:32 09/08/17 14:32 09/08/17 14:32 09/08/17 14:32 09/08/17 12:43 Intake and Output: 09/08/17 09/08/17 06:59 18:59 Intake Total 910.1 1033.6 Output Total 930 475 Balance -19.9 558.6 - Medications Medications: Current Medications Albuterol/Ipratropium (Duoneb 3 Mg/0.5 Mg (3 Ml) Ud) 3 ml INH RQ8 EUSEBIO Last Admin: 09/08/17 07:39 Dose: Not Given Artificial Tears (Lacri-Lube) 1 gm OS Q6H PRN PRN Reason: Sedation Last Admin: 09/06/17 20:10 Dose: 1 gm Piperacillin Sod/Tazobactam Sod (Zosyn 3.375 Gm Iv Premix) 3.375 gm in 50 mls @ 100 mls/hr IVPB Q6H EUSEBIO Last Admin: 09/08/17 09:32 Dose: 100 mls/hr Propofol (Diprivan) 1,000 mg in 100 mls @ 2.3 mls/hr IV .Q24H PRN; Protocol; 5 MCG/KG/MIN PRN Reason: TITRATE PER MD ORDER Last Admin: 09/08/17 14:44 Dose: 35 mcg/kg/min, 16.1 mls/hr Levetiracetam 1,000 mg/ (Dextrose) 110 mls @ 420 mls/hr IVPB Q12H EUSEBIO Last Admin: 09/08/17 05:40 Dose: 420 mls/hr Midazolam HCl 100 mg/ Dextrose 100 mls @ 5 mls/hr IV .Q20H EUSEBIO; 5 MG/HR PRN Reason: Protocol Last Admin: 09/08/17 05:43 Dose: Not Given Pantoprazole Sodium (Protonix Inj) 40 mg IVP DAILY EUSEBIO Last Admin: 09/08/17 09:22 Dose: 40 mg Potassium Phos/Sodium Phos (Neutra-Phos) 1 pkt NG Q6 [facility] Last Admin: 09/08/17 14:43 Dose: 1 pkt Thiamine HCl (Vitamin B1 Inj) 100 mg IV DAILY [facility] Last Admin: 09/08/17 09:22 Dose: 100 mg - Labs Labs: 09/08/17 06:27 09/08/17 06:27 PT 14.4 SECONDS (9.7-12.2) H 08/30/17 19:30 INR 1.3 08/30/17 19:30 APTT 28 SECONDS (21-34) 08/30/17 19:30
--- NOTE | 2017-09-08 17:00 | CT ---
PROCEDURE: CT HEAD WITHOUT CONTRAST. HISTORY: anoxia follow up COMPARISON: None available. TECHNIQUE: Axial computed tomography images were obtained through the head/brain without intravenous contrast. Radiation dose: Total exam DLP = 1277 mGy-cm. This CT exam was performed using one or more of the following dose reduction techniques: Automated exposure control, adjustment of the mA and/or kV according to patient size, and/or use of iterative reconstruction technique. FINDINGS: HEMORRHAGE: No intracranial hemorrhage. BRAIN: No mass effect or edema. No atrophy or chronic microvascular ischemic changes. VENTRICLES: Unremarkable. No hydrocephalus. CALVARIUM: Unremarkable. PARANASAL SINUSES: Mucosal opacification of the ethmoid air cells and sphenoid sinus. . MASTOID AIR CELLS: Partial opacification of the bilateral mastoid air cells. OTHER FINDINGS: None. IMPRESSION: No acute intracranial abnormality. If symptoms persists, further evaluation with MRI is recommended. Sinus mucosal disease.
--- NOTE | 2017-09-08 18:29 | CP.CCUPN ---
CCU Subjective - Physician Review Events Since Last Encounter (Free Text): 09/08/17 18:29 36-year-old female admitted with a cardiac arrest. Patient is still on ventilator. Anoxia. Not responding. Tachycardia. Tachypnea. On examination: Patient is not responding. Tachycardia Edema noted Overall prognosis is very poor Risk management analysis may be needed Family meeting necessary. Continue the current supportive treatment. CCU Objective - Vital Signs / Intake & Output Vital Signs (Last 4 hours): Vital Signs Temp Pulse Resp BP Pulse Ox 09/08/17 18:00 134 H 22 95 09/08/17 17:58 134 H 23 120/80 95 09/08/17 17:43 133 H 22 123/80 96 09/08/17 17:28 132 H 23 121/83 96 09/08/17 17:13 130 H 23 118/80 96 09/08/17 17:00 130 H 22 96 09/08/17 16:58 129 H 23 119/79 96 09/08/17 16:43 131 H 24 118/79 96 09/08/17 16:28 134 H 23 123/82 09/08/17 16:00 98.8 F 09/08/17 15:43 136 H 23 113/78 98 09/08/17 15:28 135 H 24 114/76 98 09/08/17 15:13 137 H 17 114/74 98 09/08/17 15:00 135 H 22 98 09/08/17 14:58 135 H 24 112/74 98 09/08/17 14:43 135 H 21 110/73 98 09/08/17 14:32 99.8 F H 133 H 17 114/71 Intake and Output (Last 8hrs): Intake & Output 09/08/17 09/08/17 09/08/17 06:59 14:59 22:59 Intake Total 758.7 1119.8 422.4 Output Total 660 575 190 Balance 98.7 544.8 232.4 Intake: IV 200 200 100 Intake, IV Amount 298.7 434.8 242.4 Right Distal Port 48 56 28 Internal Jugular Right Internal Jugular 150 Right Medial Port 250 150 Internal Jugular Right Proximal Port 100.7 128.8 64.4 Internal Jugular Tube Feeding 160 160 80 Blood Product 325 Red Blood Cells Cpd As1 325 Lr Unit [id number] Other 100 Output: Urine 660 525 190 Urethral (Andino) 660 525 190 Stool 50 - Physical Exam Head: Positive for: Atraumatic, Normocephalic Pupils: Positive for: Sluggish Extroacular Muscles: Negative for: EOMI Mouth: Positive for: Moist Mucous Membranes Respiratory/Chest: Positive for: Good Air Exchange, Other (intubated ) Cardiovascular: Positive for: Normal S1, S2, Tachycardic Abdomen: Positive for: Normal Bowel Sounds. Negative for: Distention Upper Extremity: Negative for: Edema Lower Extremity: Negative for: Edema Neurological: Negative for: GCS=15, Speech Normal Skin: Positive for: Normal Color Psychiatric: Negative for: Alert, Oriented x 3 - Medications Active Medications: Active Medications Generic Name Dose Route Start Last Admin Trade Name Freq PRN Reason Stop Dose Admin Artificial Tears 1 gm 08/31/17 12:00 09/06/17 20:10 Lacri-Lube OS 1 gm Q6H PRN Administration Sedation Piperacillin Sod/Tazobactam Sod 3.375 gm in 50 mls @ 100 mls/hr 09/05/17 10: 30 09/08/17 16:42 Zosyn 3.375 Gm Iv Premix IVPB 100 mls/hr Q6H EUSEBIO Administration Propofol 1,000 mg in 100 mls @ 2.3 mls/hr 09/05/17 15:59 09/08/17 18:13 Diprivan IV 35 mcg/kg/min .Q24H PRN 16.1 mls/hr TITRATE PER MD ORDER Administration Protocol 5 MCG/KG/MIN Levetiracetam 1,000 mg/ 110 mls @ 420 mls/hr 09/06/17 18:00 09/08/17 17:03 Dextrose IVPB 420 mls/hr Q12H EUSEBIO Administration Midazolam HCl 100 mg/ Dextrose 100 mls @ 5 mls/hr 09/07/17 09:30 09/08/17 05: 43 IV Not Given .Q20H EUSEBIO Protocol 5 MG/HR Pantoprazole Sodium 40 mg 08/31/17 10:00 09/08/17 09:22 Protonix Inj IVP 40 mg DAILY EUSEBIO Administration Potassium Phos/Sodium Phos 1 pkt 09/01/17 10:30 09/08/17 17:03 Neutra-Phos NG 1 pkt Q6 EUSEBIO Administration Thiamine HCl 100 mg 08/30/17 22:15 09/08/17 09:22 Vitamin B1 Inj IV 100 mg DAILY EUSEBIO Administration - Patient Studies Lab Studies: Lab Studies 09/08/17 09/08/17 09/08/17 Range/Units 17:35 11:52 09:59 WBC (4.8-10.8) K/uL RBC (3.80-5.20) Mil/uL Hgb (11.0-16.0) g/dL Hct (34.0-47.0) % MCV (81.0-99.0) fL MCH (27.0-31.0) pg MCHC (33.0-37.0) g/dL RDW (11.5-14.5) % Plt Count (130-400) K/uL MPV (7.2-11.7) fL Neut % (Auto) (50.0-75.0) % Lymph % (Auto) (20.0-40.0) % [place] % (Auto) (0.0-10.0) % Eos % (Auto) (0.0-4.0) % Baso % (Auto) (0.0-2.0) % Neut # (1.8-7.0) K/uL Lymph # (1.0-4.3) K/uL [place] # (0.0-0.8) K/uL Eos # (0.0-0.7) K/uL Baso # (0.0-0.2) K/uL Neutrophils % (Manual) (50-75) % Lymphocytes % (Manual) (20-40) % Monocytes % (Manual) (0-10) % Eosinophils % (Manual) (0-4) % Platelet Estimate (NORMAL) Large Platelets Polychromasia Hypochromasia (manual) Poikilocytosis (manual Anisocytosis (manual) Target Cells Ovalocytes Sodium (132-148) mmol/L Potassium (3.6-5.2) mmol/L Chloride (98-107) mmol/L Carbon Dioxide (22-30) mmol/L Anion Gap (10-20) BUN (7-17) mg/dL Creatinine (0.7-1.2) mg/dL Est GFR ( Amer) Est GFR (Non-Af Amer) POC Glucose (mg/dL) 115 H 109 (65-110) mg/dL Random Glucose (65-105) mg/dL Calcium (8.6-10.4) mg/dl Phosphorus (2.5-4.5) mg/dL Magnesium (1.6-2.3) mg/dL Total Bilirubin (0.2-1.3) mg/dL AST (14-36) U/L ALT (9-52) U/L Alkaline Phosphatase (38-126) U/L Total Protein (6.3-8.3) g/dL Albumin (3.5-5.0) g/dL Globulin (2.2-3.9) gm/dL Albumin/Globulin Ratio (1.0-2.1) Blood Type O POSITIVE Antibody Screen Negative 09/08/17 09/08/17 09/08/17 Range/Units 07:34 06:39 06:27 WBC (4.8-10.8) K/uL RBC (3.80-5.20) Mil/uL Hgb (11.0-16.0) g/dL Hct (34.0-47.0) % MCV (81.0-99.0) fL MCH (27.0-31.0) pg MCHC (33.0-37.0) g/dL RDW (11.5-14.5) % Plt Count (130-400) K/uL MPV (7.2-11.7) fL Neut % (Auto) (50.0-75.0) % Lymph % (Auto) (20.0-40.0) % [place] % (Auto) (0.0-10.0) % Eos % (Auto) (0.0-4.0) % Baso % (Auto) (0.0-2.0) % Neut # (1.8-7.0) K/uL Lymph # (1.0-4.3) K/uL [place] # (0.0-0.8) K/uL Eos # (0.0-0.7) K/uL Baso # (0.0-0.2) K/uL Neutrophils % (Manual) (50-75) % Lymphocytes % (Manual) (20-40) % Monocytes % (Manual) (0-10) % Eosinophils % (Manual) (0-4) % Platelet Estimate (NORMAL) Large Platelets Polychromasia Hypochromasia (manual) Poikilocytosis (manual Anisocytosis (manual) Target Cells Ovalocytes Sodium 129 L (132-148) mmol/L Potassium 4.1 (3.6-5.2) mmol/L Chloride 97 L (98-107) mmol/L Carbon Dioxide 24 (22-30) mmol/L Anion Gap 12 (10-20) BUN 4 L (7-17) mg/dL Creatinine 0.4 L (0.7-1.2) mg/dL Est GFR ( Amer) > 60 Est GFR (Non-Af Amer) > 60 POC Glucose (mg/dL) 104 116 H (65-110) mg/dL Random Glucose 103 (65-105) mg/dL Calcium 8.6 (8.6-10.4) mg/dl Phosphorus 4.3 (2.5-4.5) mg/dL Magnesium 1.5 L (1.6-2.3) mg/dL Total Bilirubin 2.6 H (0.2-1.3) mg/dL AST 74 H D (14-36) U/L ALT 44 (9-52) U/L Alkaline Phosphatase 192 H D (38-126) U/L Total Protein 5.3 L (6.3-8.3) g/dL Albumin 2.6 L (3.5-5.0) g/dL Globulin 2.7 (2.2-3.9) gm/dL Albumin/Globulin Ratio 1.0 (1.0-2.1) Blood Type Antibody Screen 09/08/17 09/07/17 09/07/17 Range/Units 06:27 23:56 17:42 WBC 13.6 H (4.8-10.8) K/uL RBC 2.59 L (3.80-5.20) Mil/uL Hgb 7.7 L (11.0-16.0) g/dL Hct 23.4 L (34.0-47.0) % MCV 90.4 (81.0-99.0) fL MCH 29.6 (27.0-31.0) pg MCHC 32.8 L (33.0-37.0) g/dL RDW 16.5 H (11.5-14.5) % Plt Count 175 (130-400) K/uL MPV 8.4 (7.2-11.7) fL Neut % (Auto) 86.7 H (50.0-75.0) % Lymph % (Auto) 9.0 L (20.0-40.0) % [place] % (Auto) 3.2 (0.0-10.0) % Eos % (Auto) 0.9 (0.0-4.0) % Baso % (Auto) 0.2 (0.0-2.0) % Neut # 11.8 H (1.8-7.0) K/uL Lymph # 1.2 (1.0-4.3) K/uL [place] # 0.4 (0.0-0.8) K/uL Eos # 0.1 (0.0-0.7) K/uL Baso # 0.0 (0.0-0.2) K/uL Neutrophils % (Manual) 89 H 92 H (50-75) % Lymphocytes % (Manual) 9 L 5 L (20-40) % Monocytes % (Manual) 2 2 (0-10) % Eosinophils % (Manual) 1 (0-4) % Platelet Estimate Normal Normal (NORMAL) Large Platelets Present Polychromasia Slight Hypochromasia (manual) Slight Poikilocytosis (manual Slight Anisocytosis (manual) Slight Slight Target Cells Slight Ovalocytes Slight Sodium (132-148) mmol/L Potassium (3.6-5.2) mmol/L Chloride (98-107) mmol/L Carbon Dioxide (22-30) mmol/L Anion Gap (10-20) BUN (7-17) mg/dL Creatinine (0.7-1.2) mg/dL Est GFR ( Amer) Est GFR (Non-Af Amer) POC Glucose (mg/dL) 112 H (65-110) mg/dL Random Glucose (65-105) mg/dL Calcium (8.6-10.4) mg/dl Phosphorus (2.5-4.5) mg/dL Magnesium (1.6-2.3) mg/dL Total Bilirubin (0.2-1.3) mg/dL AST (14-36) U/L ALT (9-52) U/L Alkaline Phosphatase (38-126) U/L Total Protein (6.3-8.3) g/dL Albumin (3.5-5.0) g/dL Globulin (2.2-3.9) gm/dL Albumin/Globulin Ratio (1.0-2.1) Blood Type Antibody Screen Laboratory Results - last 24 hr 09/07/17 09/07/17 09/08/17 17:42 23:56 06:27 WBC 13.6 H RBC 2.59 L Hgb 7.7 L Hct 23.4 L MCV 90.4 MCH 29.6 MCHC 32.8 L RDW 16.5 H Plt Count 175 MPV 8.4 Neut % (Auto) 86.7 H Lymph % (Auto) 9.0 L [place] % (Auto) 3.2 Eos % (Auto) 0.9 Baso % (Auto) 0.2 Neut # 11.8 H Lymph # 1.2 [place] # 0.4 Eos # 0.1 Baso # 0.0 Neutrophils % (Manual) 92 H 89 H Lymphocytes % (Manual) 5 L 9 L Monocytes % (Manual) 2 2 Eosinophils % (Manual) 1 Platelet Estimate Normal Normal Large Platelets Present Polychromasia Slight Hypochromasia (manual) Slight Poikilocytosis (manual Slight Anisocytosis (manual) Slight Slight Target Cells Slight Ovalocytes Slight Sodium Potassium Chloride Carbon Dioxide Anion Gap BUN Creatinine Est GFR ( Amer) Est GFR (Non-Af Amer) POC Glucose (mg/dL) 112 H Random Glucose Calcium Phosphorus Magnesium Total Bilirubin AST ALT Alkaline Phosphatase Total Protein Albumin Globulin Albumin/Globulin Ratio Blood Type Antibody Screen 09/08/17 09/08/17 09/08/17 06:27 06:39 07:34 WBC RBC Hgb Hct MCV MCH MCHC RDW Plt Count MPV Neut % (Auto) Lymph % (Auto) [place] % (Auto) Eos % (Auto) Baso % (Auto) Neut # Lymph # [place] # Eos # Baso # Neutrophils % (Manual) Lymphocytes % (Manual) Monocytes % (Manual) Eosinophils % (Manual) Platelet Estimate Large Platelets Polychromasia Hypochromasia (manual) Poikilocytosis (manual Anisocytosis (manual) Target Cells Ovalocytes Sodium 129 L Potassium 4.1 Chloride 97 L Carbon Dioxide 24 Anion Gap 12 BUN 4 L Creatinine 0.4 L Est GFR ( Amer) > 60 Est GFR (Non-Af Amer) > 60 POC Glucose (mg/dL) 116 H 104 Random Glucose 103 Calcium 8.6 Phosphorus 4.3 Magnesium 1.5 L Total Bilirubin 2.6 H AST 74 H D ALT 44 Alkaline Phosphatase 192 H D Total Protein 5.3 L Albumin 2.6 L Globulin 2.7 Albumin/Globulin Ratio 1.0 Blood Type Antibody Screen 09/08/17 09/08/17 09/08/17 09:59 11:52 17:35 WBC RBC Hgb Hct MCV MCH MCHC RDW Plt Count MPV Neut % (Auto) Lymph % (Auto) [place] % (Auto) Eos % (Auto) Baso % (Auto) Neut # Lymph # [place] # Eos # Baso # Neutrophils % (Manual) Lymphocytes % (Manual) Monocytes % (Manual) Eosinophils % (Manual) Platelet Estimate Large Platelets Polychromasia Hypochromasia (manual) Poikilocytosis (manual Anisocytosis (manual) Target Cells Ovalocytes Sodium Potassium Chloride Carbon Dioxide Anion Gap BUN Creatinine Est GFR ( Amer) Est GFR (Non-Af Amer) POC Glucose (mg/dL) 109 115 H Random Glucose Calcium Phosphorus Magnesium Total Bilirubin AST ALT Alkaline Phosphatase Total Protein Albumin Globulin Albumin/Globulin Ratio Blood Type O POSITIVE Antibody Screen Negative Fingerstick Blood Sugar Results: 115
--- NOTE | 2017-09-08 20:50 | PN ---
DATE: 09/08/2017 SUBJECTIVE: The patient was seen and examined at bedside. The patient's mental status remains the same, remains intubated. PHYSICAL EXAMINATION: VITAL SIGNS: Blood pressure is 114/74, pulse 130, respirations 22, O2 sat on 40% FiO2 is 98%, tidal volume 450, PEEP of 5 and rate 14. INTAKE AND OUTPUT: Intake is 1777 mL and output is 1680 mL. HEENT: Pupils are sluggishly reacting to light. No icterus. Positive pallor. ET tube and gastric tube in the oral cavity. NECK: Supple. LUNGS: Bilateral vesicular breath sounds. Bilateral basal crackles heard. CARDIOVASCULAR: S1 and S2 present, tachycardic. ABDOMEN: Soft. Bowel sounds present. CENTRAL NERVOUS SYSTEM: Sedated, intubated, and unresponsive. Limited involuntary movements. EXTREMITIES: No edema. MEDICATIONS: Include DuoNeb 3 mL inhalation every 8 hours, Artificial tears, Keppra 1000 mg q.12 hours, Versed 5 mg per hour, Protonix 40 mg IV daily, Zosyn 3.375 g IV q.6 hours, Neutra-Phos 1 pack q.6h., Diprivan 5 mcg/kg/min, thiamine 100 mg daily. LABORATORY DATA: Labs from this morning: WBC 13.6, hemoglobin 7.7, hematocrit 23.4, platelets 175. Sodium 129, potassium 4.1, chloride 97, bicarb 24, BUN 4, creatinine 0.4, glucose 104, calcium 8.6, phosphorus 4.3, magnesium 1.5, total bili 2.6. AST 74, ALT 44, alkaline phosphatase 192, total protein 5.3, albumin 2.6. Chest x-ray from this morning shows lines and tubes in stable position, prominent confluent opacification of the left hemithorax, [id number] venous congestion by ____ thickening. ASSESSMENT AND PLAN: Young female with history of EtOH abuse, substance abuse, back problems, wheelchair bound, status post cardiac arrest with multiple electrolyte abnormalities, persistent anemia, received multiple blood transfusions, sinus tachycardia, seizures, vent dependent, respiratory failure. The patient received 2 bags of magnesium sulphate this morning for hypomagnesemia. Mental status remains the same. Respiratory status remains the same, vent dependent. Continue with GI and DVT prophylaxis. Continue with current antibiotics. Awaiting for the patient's family's decision regarding DNR status and terminal extubation. Phoenix Caballero MD
[2017-09-09] MEDS: Piperacill/Tazo 3.375gm in Dex 3.375 GM/50 ML BAG IVPB SCH ×5 (01:19→22:25)
[2017-09-09] MEDS: Potassium & Sodium Phosphate NG SCH ×4 (01:22→18:14)
[2017-09-09] MEDS: Propofol 10 mg/ml 1,000 MG/100 ML VIAL IV PRN ×4 (01:26→18:22)
[2017-09-09] MEDS: Midazolam 50 mg/10 ml 100 MG in Dextrose 5% In Water 80 ML IV SCH (03:21)
[2017-09-09 06:04] LABS: ABG ALLEN TEST POS; ABG MECHANICAL RATE 10; ARTERIAL BLOOD GAS MODE PRVC; ATERIAL BLOOD GAS PEEP 5; CARBOXYHEMOGLOBIN 2.9 % (0.5-1.5); DRAW SITE LR; HHB 3.2 % (0.0-5.0)
[2017-09-09 06:45] LABS: BASO # 0.1 K/uL (0.0-0.2); EOS # 0.1 K/uL (0.0-0.7)
[2017-09-09 06:53] LABS: BASO % 0.3 % (0.0-2.0); EOS % 0.5 % (0.0-4.0); HEMATOCRIT 26.8 % (34.0-47.0); LYMPH % 6.2 % (20.0-40.0); MEAN CELL VOLUME 89.9 fL (81.0-99.0); MEAN CORPUSCULAR HEMOGLOBIN 29.9 pg (27.0-31.0); MEAN CORPUSCULAR HGB CONC 33.3 g/dL (33.0-37.0); MONO # 0.5 K/uL (0.0-0.8); PLATELET COUNT 201 K/uL (130-400); RED CELL DISTRIBUTION WIDTH 15.6 % (11.5-14.5); WHITE BLOOD COUNT 15.5 K/uL (4.8-10.8)
[2017-09-09] MEDS: Midazolam 50 mg/10 ml 100 MG in Dextrose 5% In Water 80 ML IV PRN ×2 (07:00→23:35)
[2017-09-09 07:35] LABS: CHLORIDE 95 mmol/L (98-107); POTASSIUM 3.3 mmol/L (3.6-5.2); SODIUM 130 mmol/L (132-148)
[2017-09-09 07:37] LABS: GFR AFRICAN-AMERICAN > 60
[2017-09-09 07:38] LABS: ALB/GLOB RATIO 0.9 (1.0-2.1); ALKALINE PHOSPHATASE 195 U/L (38-126); ALT/SGPT 33 U/L (9-52); AST/SGOT 52 U/L (14-36); BILIRUBIN,TOTAL 2.9 mg/dL (0.2-1.3); BLOOD UREA NITROGEN 10 mg/dL (7-17); CALCIUM 9.2 mg/dl (8.6-10.4); CARBON DIOXIDE 24 mmol/L (22-30); GLUCOSE,RANDOM 101 mg/dL (65-105); TOTAL PROTEIN 5.7 g/dL (6.3-8.3)
[2017-09-09 07:39] LABS: MAGNESIUM 1.9 mg/dL (1.6-2.3)
[2017-09-09 09:19] LABS: NEUTROPHIL 89 % (50-75); TOTAL CELLS COUNTED 100
--- NOTE | 2017-09-09 09:41 | RAD ---
HISTORY: Intubated/Follow up COMPARISON: 09/08/2017 FINDINGS: LUNGS: Lines and tubes in stable position. Moderate venous congestion with confluent consolidative changes in the left mid to lower lung zone as well as the right lung base. Small left pleural effusion. PLEURA: As above. CARDIOVASCULAR: Cardiomegaly. OSSEOUS STRUCTURES: No significant abnormalities. VISUALIZED UPPER ABDOMEN: Normal. OTHER FINDINGS: None. IMPRESSION: Lines and tubes in stable position. Moderate venous congestion with confluent consolidative changes in the left mid to lower lung zone as well as the right lung base. Small left pleural effusion.
[2017-09-09] MEDS: Thiamine 100 mg/ml Inj IV SCH (10:28)
[2017-09-09] MEDS ORDERED: Potassium Chloride 20 mEq/15 ml LIQ UD PO ONE (12:15)
--- NOTE | 2017-09-09 16:42 | CP.PCM.PN ---
Subjective - Date & Time of Evaluation Date of Evaluation: 09/09/17 Time of Evaluation: 12:11 - Subjective Subjective: No events, breathing over vent. Objective - Vital Signs/Intake and Output Vital Signs (last 24 hours): Temp Pulse Resp BP Pulse Ox 97.9 F 122 H 24 94/59 L 100 09/09/17 08:00 09/09/17 12:00 09/09/17 12:00 09/09/17 11:58 09/09/17 12:00 Intake and Output: 09/09/17 09/09/17 06:59 18:59 Intake Total 917.2 86.2 Output Total 340 390 Balance 577.2 -303.8 - Medications Medications: Current Medications Artificial Tears (Lacri-Lube) 1 gm OS Q6H PRN PRN Reason: Sedation Last Admin: 09/06/17 20:10 Dose: 1 gm Piperacillin Sod/Tazobactam Sod (Zosyn 3.375 Gm Iv Premix) 3.375 gm in 50 mls @ 100 mls/hr IVPB Q6H [facility] Last Admin: 09/09/17 10:41 Dose: 100 mls/hr Propofol (Diprivan) 1,000 mg in 100 mls @ 2.3 mls/hr IV .Q24H PRN; Protocol; 5 MCG/KG/MIN PRN Reason: TITRATE PER MD ORDER Last Admin: 09/09/17 06:00 Dose: 35 mcg/kg/min, 16.098 mls/hr Levetiracetam 1,000 mg/ (Dextrose) 110 mls @ 420 mls/hr IVPB Q12H [facility] Last Admin: 09/09/17 05:47 Dose: 420 mls/hr Midazolam HCl 100 mg/ Dextrose 100 mls @ 5 mls/hr IV .Q20H PRN; Protocol; 5 MG/ HR PRN Reason: TITRATE PER MD ORDER Last Admin: 09/09/17 07:00 Dose: 7 mg/hr, 7 mls/hr Metoprolol Tartrate (Lopressor) 25 mg PO BID [facility] Last Admin: 09/09/17 10:21 Dose: Not Given Pantoprazole Sodium (Protonix Inj) 40 mg IVP DAILY [facility] Last Admin: 09/09/17 10:27 Dose: 40 mg Potassium Chloride (Potassium Chloride Oral Soln) 40 meq PO STAT STA Stop: 09/09/17 12:11 Potassium Phos/Sodium Phos (Neutra-Phos) 1 pkt NG Q6 [facility] Last Admin: 09/09/17 05:56 Dose: 1 pkt Thiamine HCl (Vitamin B1 Inj) 100 mg IV DAILY [facility] Last Admin: 09/09/17 10:28 Dose: 100 mg - Labs Labs: 09/09/17 06:36 09/09/17 06:36 PT 14.4 SECONDS (9.7-12.2) H 08/30/17 19:30 INR 1.3 08/30/17 19:30 APTT 28 SECONDS (21-34) 08/30/17 19:30 - Additional Findings Additional findings: * HEENT no corneal reflex, no gag, no response to painful stimuli * Neck Supple * Chest Clear b/l * CVS regular, tachycardia * PA soft, distended, bs present * Ext no edema * Skin normal turgor * [employer] above breathing over vent, no gag, no corneal reflex. Assessment and Plan - Assessment and Plan (Free Text) Assessment: * Severe anoxic injury * Resp failure on vent * Seizures post cardiac arrest, no clinical seizures now on versed, kepra, propofol * H/o alcoholism * Hypokalemia, being replaced * Poor prognosis Plan: * Supportive care * Will relay the prognosis to family suggest terminal extubation * GI/DVT prophylaxis
--- NOTE | 2017-09-09 16:48 | CP.PCM.PN ---
Subjective - Date & Time of Evaluation Date of Evaluation: 09/09/17 Time of Evaluation: 16:00 - Subjective Subjective: Progress note dictated #[id number] Objective - Vital Signs/Intake and Output Vital Signs (last 24 hours): Temp Pulse Resp BP Pulse Ox 100.4 F H 133 H 22 104/68 100 09/09/17 16:00 09/09/17 16:00 09/09/17 16:00 09/09/17 15:58 09/09/17 16:00 Intake and Output: 09/09/17 09/09/17 06:59 18:59 Intake Total 917.2 641.0 Output Total 340 3610 Balance 577.2 -2969.0 - Medications Medications: Current Medications Artificial Tears (Lacri-Lube) 1 gm OS Q6H PRN PRN Reason: Sedation Last Admin: 09/06/17 20:10 Dose: 1 gm Piperacillin Sod/Tazobactam Sod (Zosyn 3.375 Gm Iv Premix) 3.375 gm in 50 mls @ 100 mls/hr IVPB Q6H [facility] Last Admin: 09/09/17 16:25 Dose: 100 mls/hr Propofol (Diprivan) 1,000 mg in 100 mls @ 2.3 mls/hr IV .Q24H PRN; Protocol; 5 MCG/KG/MIN PRN Reason: TITRATE PER MD ORDER Last Titration: 09/09/17 16:40 Dose: 40 mcg/kg/min, 18.398 mls/hr Levetiracetam 1,000 mg/ (Dextrose) 110 mls @ 420 mls/hr IVPB Q12H [facility] Last Admin: 09/09/17 05:47 Dose: 420 mls/hr Midazolam HCl 100 mg/ Dextrose 100 mls @ 5 mls/hr IV .Q20H PRN; Protocol; 5 MG/ HR PRN Reason: TITRATE PER MD ORDER Last Admin: 09/09/17 07:00 Dose: 7 mg/hr, 7 mls/hr Metoprolol Tartrate (Lopressor) 25 mg PO BID [facility] Last Admin: 09/09/17 10:21 Dose: Not Given Pantoprazole Sodium (Protonix Inj) 40 mg IVP DAILY [facility] Last Admin: 09/09/17 10:27 Dose: 40 mg Potassium Phos/Sodium Phos (Neutra-Phos) 1 pkt NG Q6 [facility] Last Admin: 09/09/17 13:03 Dose: 1 pkt Thiamine HCl (Vitamin B1 Inj) 100 mg IV DAILY [facility] Last Admin: 09/09/17 10:28 Dose: 100 mg - Labs Labs: 09/09/17 06:36 09/09/17 06:36 PT 14.4 SECONDS (9.7-12.2) H 08/30/17 19:30 INR 1.3 08/30/17 19:30 APTT 28 SECONDS (21-34) 08/30/17 19:30
[2017-09-09] MEDS ORDERED: Iodixanol 320 mg/ml 150 ml Bottle IV ONE (21:27)
--- NOTE | 2017-09-09 22:16 | CT ---
EXAM: CT Angiography Chest With Intravenous Contrast CLINICAL HISTORY: 36 years old, female; Signs and symptoms; Tachypnea; Additional info: Tachycardia, hypoxia TECHNIQUE: Axial computed tomographic angiography images of the chest with intravenous contrast using pulmonary embolism protocol. All CT scans at this facility use one or more dose reduction techniques, viz.: automated exposure control; ma/kV adjustment per patient size (including targeted exams where dose is matched to indication; i.e. head); or iterative reconstruction technique. MIP reconstructed images were created and reviewed. Coronal and sagittal reformatted images were created and reviewed. CONTRAST: 100 mL of [id number] administered intravenously. COMPARISON: None FINDINGS: Pulmonary arteries: No pulmonary embolism. Aorta: No thoracic aortic aneurysm. Lungs: No mass. No consolidation. Patchy consolidation within the left lung base, as well as the right mid to lower lung field. A mosaic pattern of perfusion is also detected, suggesting air-trapping . Pleural spaces: No significant effusion. No pneumothorax. Heart: No cardiomegaly. No significant pericardial effusion. No evidence of right heart dysfunction. Bones: No acute fracture. Lymph nodes: No pathologically enlarged lymph nodes. IMPRESSION: No pulmonary embolism. With bilateral consolidation, as detailed above. A mosaic pattern of perfusion, suggesting chronic interstitial lung disease, versus small airways disease (constrictive bronchiolitis). Chronic thromboembolic disease may also have a similar appearance, although the main pulmonary artery but is not distended.
--- NOTE | 2017-09-09 22:22 | CT ---
EXAM: CT Abdomen and Pelvis With Intravenous Contrast CLINICAL HISTORY: 36 years old, female; Pain; Abdominal pain; Generalized; Additional info: Tachycardia, hypoxia TECHNIQUE: Axial computed tomography images of the abdomen and pelvis with intravenous contrast. All CT scans at this facility use one or more dose reduction techniques, viz.: automated exposure control; ma/kV adjustment per patient size (including targeted exams where dose is matched to indication; i.e. head); or iterative reconstruction technique. Coronal and sagittal reformatted images were created and reviewed. CONTRAST: 100 mL of [id number] administered intravenously. COMPARISON: CT - ABD PELVIS IV CONTRAST ONLY 2017-08-30 21:09 FINDINGS: Lower thorax: Bibasilar consolidation is identified. ABDOMEN: Liver: No acute findings. Gallbladder and bile ducts: The gallbladder is decompressed. No calcified stones. No significant intra- or extrahepatic biliary ductal dilation. Pancreas: Multiple rounded areas of fluid attenuation are identified within the body and tail of the pancreas, largely unchanged from 08/30/2017. Enlargement of the pancreas, with edema and loss of normal fatty lobulation. Peripancreatic fat stranding is also present, along with trace free fluid. The pancreas enhances homogeneously, without areas suggesting necrosis. Spleen: No acute findings. Adrenals: No acute findings. Kidneys and ureters: No acute findings. No hydronephrosis or renal calculi. No discrete solid mass. PELVIS: Bladder: No acute findings. Reproductive: No acute findings. Appendix: The appendix is not definitively visualized, however no pericecal inflammatory change is identified to suggest the presence of acute appendicitis. ABDOMEN and PELVIS: Stomach and bowel: No obstruction. No mucosal thickening. Peritoneum: No significant fluid collection. No free air. Lymph nodes: No pathologically enlarged lymph nodes. Vasculature: Unremarkable. Bones: No acute fracture. IMPRESSION: Findings within the pancreas suggesting acute on chronic pancreatitis, for which clinical and serologic correlation is needed.
[2017-09-10] MEDS: Propofol 10 mg/ml 1,000 MG/100 ML VIAL IV PRN ×4 (00:37→17:22)
[2017-09-10] MEDS: Potassium & Sodium Phosphate NG SCH ×5 (00:50→23:27)
--- NOTE | 2017-09-10 00:56 | PN ---
DATE: 09/09/2017 SUBJECTIVE: The patient was seen and examined at bedside. The patient's neurologic status and medical condition remains the same, intubated, unresponsive with involuntary movements. PHYSICAL EXAMINATION: VITAL SIGNS: Blood pressure 104/68, pulse 133, respirations 20, temperature 100.4 degrees Fahrenheit, O2 saturation 100% on 40% FiO2, tidal volume 450, set rate 14, and PEEP of 5. INTAKE AND OUTPUT: Intake is 2559 mL and output is 1105 mL. HEENT: Pupils are sluggishly reacting to light. No icterus. Positive pallor. NECK: Supple. ET tube and gastric tube in the oral cavity. LUNGS: Bilateral vesicular breath sounds. Bilateral basal crackles. CARDIOVASCULAR: S1 and S2 present, regular, tachycardic. ABDOMEN: Soft. Bowel sounds present. CENTRAL NERVOUS SYSTEM: Sedated, intubated with involuntary movements, not responding to the painful stimuli. No voluntary movements noted. EXTREMITIES: No edema. Palpable peripheral pulses. MEDICATIONS: Include Keppra 1000 mg IV q. 12 hours, Lopressor 25 mg p.o. daily, midazolam 5 mg per hour, Protonix 40 mg daily, Zosyn 3.375 g IV q. 6 hours, Neutra-Phos 1 pack q. 6 hours, artificial tears, propofol, and thiamine. LABORATORY DATA: Labs from this morning: WBC 15.5, hemoglobin 8.9, hematocrit 26.8, platelets 201. ABG on 40% FiO2; pH 7.48, pCO2 35, pO2 72, O2 sats 93%. Sodium 130, potassium 3.3, chloride 95, bicarbonate 24, BUN 10, creatinine 0.7, glucose 110, calcium 9.2, magnesium 1.9. Total bilirubin 2.9, AST 52, ALT 33, and alkaline phosphatase 195. Total protein 5.7, albumin 2.7. Repeat head CT on 09/08/2017 shows no acute intracranial abnormality, sinus mucosal disease. ASSESSMENT AND PLAN: Middle-aged female with EtOH abuse, substance abuse; back problems, status post surgeries, wheelchair bound, status post cardiac arrest, status post intubation with ventilator-dependent respiratory failure, seizure disorder, anoxic encephalopathy, multiple electrolyte abnormalities, anemia, sinus tachycardia. Neurological status remains the same, ventilator dependent on 40% FiO2, O2 saturation more than 90%. The patient was started on metoprolol for tachycardia. Electrolytes are being replaced. Continue gastric and deep venous thrombosis prophylaxis. Continue with current antiseizure medication. Awaiting for the patient's family to decide on her DNR status and terminal extubation. We will try to contact family. We will follow up with palliative care. We will consider ethics consult if family member does not plan out for family discussion regarding the DNR status. The patient's condition is critical and prognosis is guarded. Phoenix Caballero MD
[2017-09-10] MEDS: Piperacill/Tazo 3.375gm in Dex 3.375 GM/50 ML BAG IVPB SCH ×4 (04:36→21:36)
[2017-09-10 06:11] LABS: ABG MECHANICAL RATE 10; ARTERIAL BLOOD GAS MODE PRVC; ARTERIAL BLOOD HGB O2 SAT 94.4 % (95.0-98.0); ATERIAL BLOOD GAS PEEP 5; DRAW SITE LR; HHB 1.3 % (0.0-5.0); METHEMOGLOBIN 1.2 % (0.0-3.0)
[2017-09-10 06:21] LABS: BASO # 0.1 K/uL (0.0-0.2); BASO % 0.5 % (0.0-2.0); EOS # 0.1 K/uL (0.0-0.7); EOS % 0.7 % (0.0-4.0); HEMATOCRIT 24.2 % (34.0-47.0); LYMPH # 1.3 K/uL (1.0-4.3); LYMPH % 8.7 % (20.0-40.0); MEAN CELL VOLUME 90.7 fL (81.0-99.0); MEAN CORPUSCULAR HEMOGLOBIN 29.7 pg (27.0-31.0); MEAN CORPUSCULAR HGB CONC 32.8 g/dL (33.0-37.0); MEAN PLATELET VOLUME 8.2 fL (7.2-11.7); MONO # 0.7 K/uL (0.0-0.8); MONO % 4.7 % (0.0-10.0); PLATELET COUNT 237 K/uL (130-400); RED CELL DISTRIBUTION WIDTH 15.7 % (11.5-14.5); WHITE BLOOD COUNT 14.8 K/uL (4.8-10.8)
[2017-09-10 06:40] LABS: CHLORIDE 100 mmol/L (98-107); SODIUM 136 mmol/L (132-148)
[2017-09-10 06:42] LABS: BILIRUBIN,TOTAL 2.1 mg/dL (0.2-1.3); GFR AFRICAN-AMERICAN > 60
[2017-09-10 06:43] LABS: ALB/GLOB RATIO 0.7 (1.0-2.1); ALKALINE PHOSPHATASE 143 U/L (38-126); ALT/SGPT 25 U/L (9-52); AST/SGOT 47 U/L (14-36); BLOOD UREA NITROGEN 7 mg/dL (7-17); CARBON DIOXIDE 26 mmol/L (22-30); GLUCOSE,RANDOM 99 mg/dL (65-105); PHOSPHOROUS 4.1 mg/dL (2.5-4.5); TOTAL PROTEIN 6.3 g/dL (6.3-8.3)
[2017-09-10 06:44] LABS: CALCIUM 9.1 mg/dl (8.6-10.4); MAGNESIUM 1.6 mg/dL (1.6-2.3)
[2017-09-10 06:46] LABS: POTASSIUM 3.3 mmol/L (3.6-5.2)
[2017-09-10] MEDS ORDERED: Potassium Chloride 20 mEq/15 ml LIQ UD PO ONE ×2 (07:15→09:00)
[2017-09-10] MEDS ORDERED: Magnesium Sulfate 1 gm in D5W 1 GM/100 ML BAG IVPB ONE (07:16)
[2017-09-10 08:36] LABS: EOSINOPHIL 1 % (0-4); NEUTROPHIL 81 % (50-75); REACTIVE LYMPHOCYTES 2 % (0-0); TOTAL CELLS COUNTED 100
[2017-09-10] MEDS: Thiamine 100 mg/ml Inj IV SCH (09:02)
--- NOTE | 2017-09-10 09:12 | RAD ---
HISTORY: follow up and temps COMPARISON: Portable chest 09/09/2017. FINDINGS: Endotracheal and nasogastric tubes are unchanged in position as well as right central venous line. LUNGS: Interval improvement in left perihilar airspace disease with left basilar infiltrate unchanged. Limited patchy density right base appears nearly completely resolved. Diminishing pulmonary venous congestive pattern. PLEURA: Minimal left pleural effusions not excluded. None is seen at the right. No pneumothorax bilaterally. CARDIOVASCULAR: Cardiac silhouette is stable in size. Diminishing pulmonary vascular derangement. OSSEOUS STRUCTURES: No significant abnormalities. VISUALIZED UPPER ABDOMEN: Normal. OTHER FINDINGS: None. IMPRESSION: Diminishing CHF and bilateral airspace disease the though significant infiltrate or atelectasis remains posterior to the left heart. Limited left pleural effusion suggested. Continued clinical and radiographic follow-up are advised.
--- NOTE | 2017-09-10 09:20 | PN ---
DATE: 09/10/2017 NEUROLOGICAL PROBLEM: Anoxic encephalopathy with status epilepticus. PHYSICAL EXAMINATION: VITAL SIGNS: Blood pressure 106/75, mean arterial pressure of 84, respiratory rate 16, temperature afebrile with pulse rate 125. NEUROLOGIC: The patient does not show any seizure activities at present, flaccid, and quadriplegia. Eyes are closed. No corneal and no pupillary reflex. DIAGNOSTIC DATA: Followup CT of the head does not show any anoxic insults to the brain from previous CAT scan, which was done two days ago. Overall prognosis is very grim. The patient's family members will be talking about her further management today. Emory Pugh MD
--- NOTE | 2017-09-10 12:35 | CP.PCM.PN ---
Subjective - Date & Time of Evaluation Date of Evaluation: 09/10/17 Time of Evaluation: 12:45 - Subjective Subjective: Progress note dictated #[id number] Objective - Vital Signs/Intake and Output Vital Signs (last 24 hours): Temp Pulse Resp BP Pulse Ox 97.4 F L 99 H 22 98/69 L 98 09/10/17 12:00 09/10/17 12:00 09/10/17 12:00 09/10/17 12:00 09/10/17 12:00 Intake and Output: 09/10/17 09/10/17 06:59 18:59 Intake Total 857.6 380 Output Total 620 330 Balance 237.6 50 - Medications Medications: Current Medications Artificial Tears (Lacri-Lube) 1 gm OS Q6H PRN PRN Reason: Sedation Last Admin: 09/06/17 20:10 Dose: 1 gm Piperacillin Sod/Tazobactam Sod (Zosyn 3.375 Gm Iv Premix) 3.375 gm in 50 mls @ 100 mls/hr IVPB Q6H [facility] Last Admin: 09/10/17 09:35 Dose: 100 mls/hr Propofol (Diprivan) 1,000 mg in 100 mls @ 2.3 mls/hr IV .Q24H PRN; Protocol; 5 MCG/KG/MIN PRN Reason: TITRATE PER MD ORDER Last Admin: 09/10/17 07:17 Dose: 32.61 mcg/kg/min, 14.999 mls/hr Levetiracetam 1,000 mg/ (Dextrose) 110 mls @ 440 mls/hr IVPB Q12H [facility] Last Admin: 09/10/17 05:12 Dose: 440 mls/hr Metoprolol Tartrate (Lopressor) 25 mg PO BID [facility] Last Admin: 09/10/17 09:20 Dose: 25 mg Midazolam HCl (Versed Inj) 2 mg IVP Q6H PRN PRN Reason: Seizure activity Pantoprazole Sodium (Protonix Inj) 40 mg IVP DAILY [facility] Last Admin: 09/10/17 09:02 Dose: 40 mg Potassium Phos/Sodium Phos (Neutra-Phos) 1 pkt NG Q6 [facility] Last Admin: 09/10/17 12:01 Dose: 1 pkt Thiamine HCl (Vitamin B1 Inj) 100 mg IV DAILY [facility] Last Admin: 09/10/17 09:02 Dose: 100 mg - Labs Labs: 09/10/17 06:11 09/10/17 06:11 PT 14.4 SECONDS (9.7-12.2) H 08/30/17 19:30 INR 1.3 08/30/17 19:30 APTT 28 SECONDS (21-34) 08/30/17 19:30
--- NOTE | 2017-09-10 13:51 | CP.CCUPN ---
CCU Subjective - Physician Review Subjective (Free Text): Patient seen and examined at bedside. Patient currently intubated. ROS unobtainable due to patient's current clinical status. CCU Objective - Vital Signs / Intake & Output Vital Signs (Last 4 hours): Vital Signs Temp Pulse Resp BP Pulse Ox 09/10/17 13:00 102 H 17 97/63 L 98 09/10/17 12:00 97.4 F L 99 H 22 98/69 L 98 09/10/17 11:00 100 H 18 91/61 L 97 09/10/17 10:00 104 H 18 95/71 L 100 Intake and Output (Last 8hrs): Intake & Output 09/09/17 09/10/17 09/10/17 22:59 06:59 14:59 Intake Total 556.3 576 415 Output Total 1070 320 410 Balance -513.7 256 5 Intake: IV 200 200 Intake, IV Amount 196.3 216 275 Right Distal Port 56 40 20 Internal Jugular Right Medial Port 50 150 Internal Jugular Right Proximal Port 140.3 126 105 Internal Jugular Tube Feeding 160 160 140 Output: Urine 1070 320 410 Urethral (Andino) 1070 320 410 - Physical Exam Head: Positive for: Atraumatic, Normocephalic Pupils: Positive for: Sluggish Extroacular Muscles: Negative for: EOMI Mouth: Positive for: Moist Mucous Membranes Respiratory/Chest: Positive for: Good Air Exchange, Other (intubated ) Cardiovascular: Positive for: Normal S1, S2, Tachycardic Abdomen: Positive for: Normal Bowel Sounds. Negative for: Distention Upper Extremity: Negative for: Edema Lower Extremity: Negative for: Edema Neurological: Negative for: GCS=15, Speech Normal Skin: Positive for: Normal Color Psychiatric: Negative for: Alert, Oriented x 3 - Medications Active Medications: Active Medications Generic Name Dose Route Start Last Admin Trade Name Freq PRN Reason Stop Dose Admin Artificial Tears 1 gm 08/31/17 12:00 09/06/17 20:10 Lacri-Lube OS 1 gm Q6H PRN Administration Sedation Piperacillin Sod/Tazobactam Sod 3.375 gm in 50 mls @ 100 mls/hr 09/05/17 10: 30 09/10/17 09:35 Zosyn 3.375 Gm Iv Premix IVPB 100 mls/hr Q6H EUSEBIO Administration Propofol 1,000 mg in 100 mls @ 2.3 mls/hr 09/05/17 15:59 09/10/17 07:17 Diprivan IV 32.61 mcg/kg/min .Q24H PRN 14.999 mls/hr TITRATE PER MD ORDER Administration Protocol 5 MCG/KG/MIN Levetiracetam 1,000 mg/ 110 mls @ 440 mls/hr 09/10/17 06:00 09/10/17 05:12 Dextrose IVPB 440 mls/hr Q12H EUSEBIO Administration Metoprolol Tartrate 25 mg 09/08/17 19:30 09/10/17 09:20 Lopressor PO 25 mg BID EUSEBIO Administration Midazolam HCl 2 mg 09/10/17 10:52 Versed Inj IVP Q6H PRN Seizure activity Pantoprazole Sodium 40 mg 08/31/17 10:00 09/10/17 09:02 Protonix Inj IVP 40 mg DAILY EUSEBIO Administration Potassium Phos/Sodium Phos 1 pkt 09/01/17 10:30 09/10/17 12:01 Neutra-Phos NG 1 pkt Q6 EUSEBIO Administration Thiamine HCl 100 mg 08/30/17 22:15 09/10/17 09:02 Vitamin B1 Inj IV 100 mg DAILY EUSEBIO Administration - Patient Studies Lab Studies: Lab Studies 09/10/17 09/10/17 09/10/17 Range/Units 11:46 06:11 06:11 WBC 14.8 H (4.8-10.8) K/uL RBC 2.67 L (3.80-5.20) Mil/uL Hgb 7.9 L (11.0-16.0) g/dL Hct 24.2 L (34.0-47.0) % MCV 90.7 (81.0-99.0) fL MCH 29.7 (27.0-31.0) pg MCHC 32.8 L (33.0-37.0) g/dL RDW 15.7 H (11.5-14.5) % Plt Count 237 (130-400) K/uL MPV 8.2 (7.2-11.7) fL Neut % (Auto) 85.4 H (50.0-75.0) % Lymph % (Auto) 8.7 L (20.0-40.0) % [place] % (Auto) 4.7 (0.0-10.0) % Eos % (Auto) 0.7 (0.0-4.0) % Baso % (Auto) 0.5 (0.0-2.0) % Neut # 12.6 H (1.8-7.0) K/uL Lymph # 1.3 (1.0-4.3) K/uL [place] # 0.7 (0.0-0.8) K/uL Eos # 0.1 (0.0-0.7) K/uL Baso # 0.1 (0.0-0.2) K/uL Neutrophils % (Manual) 81 H (50-75) % Band Neutrophils % 3 H (0-2) % Lymphocytes % (Manual) 11 L (20-40) % Reactive Lymphs % 2 H (0-0) % Monocytes % (Manual) 2 (0-10) % Eosinophils % (Manual) 1 (0-4) % Platelet Estimate Normal (NORMAL) Hypochromasia (manual) Slight Anisocytosis (manual) Slight Puncture Site pCO2 (35-45) mm/Hg pO2 (80-100) mm/Hg HCO3 (21-28) mmol/L ABG pH (7.35-7.45) ABG Total CO2 (22-28) mmol/L ABG O2 Saturation (95-98) % ABG Base Excess (-2.0-3.0) mmol/L ABG Hemoglobin (11.7-17.4) g/dL ABG Carboxyhemoglobin (0.5-1.5) % POC ABG HHb (Measured) (0.0-5.0) % ABG Methemoglobin (0.0-3.0) % Stephen Test A-a O2 Difference mm/Hg Respiratory Index Hgb O2 Saturation (95.0-98.0) % Vent Mode Mechanical Rate FiO2 % Tidal Volume PEEP Sodium 136 (132-148) mmol/L Potassium 3.3 L (3.6-5.2) mmol/L Chloride 100 (98-107) mmol/L Carbon Dioxide 26 (22-30) mmol/L Anion Gap 13 (10-20) BUN 7 (7-17) mg/dL Creatinine 0.3 L (0.7-1.2) mg/dL Est GFR ( Amer) > 60 Est GFR (Non-Af Amer) > 60 POC Glucose (mg/dL) 102 (65-110) mg/dL Random Glucose 99 (65-105) mg/dL Calcium 9.1 (8.6-10.4) mg/dl Phosphorus 4.1 (2.5-4.5) mg/dL Magnesium 1.6 (1.6-2.3) mg/dL Total Bilirubin 2.1 H (0.2-1.3) mg/dL AST 47 H (14-36) U/L ALT 25 (9-52) U/L Alkaline Phosphatase 143 H D (38-126) U/L Total Protein 6.3 (6.3-8.3) g/dL Albumin 2.5 L (3.5-5.0) g/dL Globulin 3.8 (2.2-3.9) gm/dL Albumin/Globulin Ratio 0.7 L (1.0-2.1) HIV 1&2 Antibody Screen (NEGATIVE) 09/10/17 09/10/17 09/10/17 Range/Units 05:44 05:00 00:31 WBC (4.8-10.8) K/uL RBC (3.80-5.20) Mil/uL Hgb (11.0-16.0) g/dL Hct (34.0-47.0) % MCV (81.0-99.0) fL MCH (27.0-31.0) pg MCHC (33.0-37.0) g/dL RDW (11.5-14.5) % Plt Count (130-400) K/uL MPV (7.2-11.7) fL Neut % (Auto) (50.0-75.0) % Lymph % (Auto) (20.0-40.0) % [place] % (Auto) (0.0-10.0) % Eos % (Auto) (0.0-4.0) % Baso % (Auto) (0.0-2.0) % Neut # (1.8-7.0) K/uL Lymph # (1.0-4.3) K/uL [place] # (0.0-0.8) K/uL Eos # (0.0-0.7) K/uL Baso # (0.0-0.2) K/uL Neutrophils % (Manual) (50-75) % Band Neutrophils % (0-2) % Lymphocytes % (Manual) (20-40) % Reactive Lymphs % (0-0) % Monocytes % (Manual) (0-10) % Eosinophils % (Manual) (0-4) % Platelet Estimate (NORMAL) Hypochromasia (manual) Anisocytosis (manual) Puncture Site Lr pCO2 37 (35-45) mm/Hg pO2 80 (80-100) mm/Hg HCO3 29.6 H (21-28) mmol/L ABG pH 7.51 H (7.35-7.45) ABG Total CO2 30.6 H (22-28) mmol/L ABG O2 Saturation 98.6 H (95-98) % ABG Base Excess 6.0 H (-2.0-3.0) mmol/L ABG Hemoglobin 8.0 L (11.7-17.4) g/dL ABG Carboxyhemoglobin 3.0 H (0.5-1.5) % POC ABG HHb (Measured) 1.3 (0.0-5.0) % ABG Methemoglobin 1.2 (0.0-3.0) % Stephen Test Na A-a O2 Difference 159.0 mm/Hg Respiratory Index 2.0 Hgb O2 Saturation 94.4 L (95.0-98.0) % Vent Mode Prvc Mechanical Rate 10 FiO2 40.0 % Tidal Volume 450 PEEP 5 Sodium (132-148) mmol/L Potassium (3.6-5.2) mmol/L Chloride (98-107) mmol/L Carbon Dioxide (22-30) mmol/L Anion Gap (10-20) BUN (7-17) mg/dL Creatinine (0.7-1.2) mg/dL Est GFR ( Amer) Est GFR (Non-Af Amer) POC Glucose (mg/dL) 123 H 127 H (65-110) mg/dL Random Glucose (65-105) mg/dL Calcium (8.6-10.4) mg/dl Phosphorus (2.5-4.5) mg/dL Magnesium (1.6-2.3) mg/dL Total Bilirubin (0.2-1.3) mg/dL AST (14-36) U/L ALT (9-52) U/L Alkaline Phosphatase (38-126) U/L Total Protein (6.3-8.3) g/dL Albumin (3.5-5.0) g/dL Globulin (2.2-3.9) gm/dL Albumin/Globulin Ratio (1.0-2.1) HIV 1&2 Antibody Screen (NEGATIVE) 09/09/17 09/09/17 Range/Units 17:52 06:36 WBC (4.8-10.8) K/uL RBC (3.80-5.20) Mil/uL Hgb (11.0-16.0) g/dL Hct (34.0-47.0) % MCV (81.0-99.0) fL MCH (27.0-31.0) pg MCHC (33.0-37.0) g/dL RDW (11.5-14.5) % Plt Count (130-400) K/uL MPV (7.2-11.7) fL Neut % (Auto) (50.0-75.0) % Lymph % (Auto) (20.0-40.0) % [place] % (Auto) (0.0-10.0) % Eos % (Auto) (0.0-4.0) % Baso % (Auto) (0.0-2.0) % Neut # (1.8-7.0) K/uL Lymph # (1.0-4.3) K/uL [place] # (0.0-0.8) K/uL Eos # (0.0-0.7) K/uL Baso # (0.0-0.2) K/uL Neutrophils % (Manual) (50-75) % Band Neutrophils % (0-2) % Lymphocytes % (Manual) (20-40) % Reactive Lymphs % (0-0) % Monocytes % (Manual) (0-10) % Eosinophils % (Manual) (0-4) % Platelet Estimate (NORMAL) Hypochromasia (manual) Anisocytosis (manual) Puncture Site pCO2 (35-45) mm/Hg pO2 (80-100) mm/Hg HCO3 (21-28) mmol/L ABG pH (7.35-7.45) ABG Total CO2 (22-28) mmol/L ABG O2 Saturation (95-98) % ABG Base Excess (-2.0-3.0) mmol/L ABG Hemoglobin (11.7-17.4) g/dL ABG Carboxyhemoglobin (0.5-1.5) % POC ABG HHb (Measured) (0.0-5.0) % ABG Methemoglobin (0.0-3.0) % Stephen Test A-a O2 Difference mm/Hg Respiratory Index Hgb O2 Saturation (95.0-98.0) % Vent Mode Mechanical Rate FiO2 % Tidal Volume PEEP Sodium (132-148) mmol/L Potassium (3.6-5.2) mmol/L Chloride (98-107) mmol/L Carbon Dioxide (22-30) mmol/L Anion Gap (10-20) BUN (7-17) mg/dL Creatinine (0.7-1.2) mg/dL Est GFR ( Amer) Est GFR (Non-Af Amer) POC Glucose (mg/dL) 129 H (65-110) mg/dL Random Glucose (65-105) mg/dL Calcium (8.6-10.4) mg/dl Phosphorus (2.5-4.5) mg/dL Magnesium (1.6-2.3) mg/dL Total Bilirubin (0.2-1.3) mg/dL AST (14-36) U/L ALT (9-52) U/L Alkaline Phosphatase (38-126) U/L Total Protein (6.3-8.3) g/dL Albumin (3.5-5.0) g/dL Globulin (2.2-3.9) gm/dL Albumin/Globulin Ratio (1.0-2.1) HIV 1&2 Antibody Screen Negative (NEGATIVE) Laboratory Results - last 24 hr 09/09/17 09/09/17 09/10/17 06:36 17:52 00:31 WBC RBC Hgb Hct MCV MCH MCHC RDW Plt Count MPV Neut % (Auto) Lymph % (Auto) [place] % (Auto) Eos % (Auto) Baso % (Auto) Neut # Lymph # [place] # Eos # Baso # Neutrophils % (Manual) Band Neutrophils % Lymphocytes % (Manual) Reactive Lymphs % Monocytes % (Manual) Eosinophils % (Manual) Platelet Estimate Hypochromasia (manual) Anisocytosis (manual) Puncture Site pCO2 pO2 HCO3 ABG pH ABG Total CO2 ABG O2 Saturation ABG Base Excess ABG Hemoglobin ABG Carboxyhemoglobin POC ABG HHb (Measured) ABG Methemoglobin Stephen Test A-a O2 Difference Respiratory Index Hgb O2 Saturation Vent Mode Mechanical Rate FiO2 Tidal Volume PEEP Sodium Potassium Chloride Carbon Dioxide Anion Gap BUN Creatinine Est GFR ( Amer) Est GFR (Non-Af Amer) POC Glucose (mg/dL) 129 H 127 H Random Glucose Calcium Phosphorus Magnesium Total Bilirubin AST ALT Alkaline Phosphatase Total Protein Albumin Globulin Albumin/Globulin Ratio HIV 1&2 Antibody Screen Negative 09/10/17 09/10/17 09/10/17 05:00 05:44 06:11 WBC 14.8 H RBC 2.67 L Hgb 7.9 L Hct 24.2 L MCV 90.7 MCH 29.7 MCHC 32.8 L RDW 15.7 H Plt Count 237 MPV 8.2 Neut % (Auto) 85.4 H Lymph % (Auto) 8.7 L [place] % (Auto) 4.7 Eos % (Auto) 0.7 Baso % (Auto) 0.5 Neut # 12.6 H Lymph # 1.3 [place] # 0.7 Eos # 0.1 Baso # 0.1 Neutrophils % (Manual) 81 H Band Neutrophils % 3 H Lymphocytes % (Manual) 11 L Reactive Lymphs % 2 H Monocytes % (Manual) 2 Eosinophils % (Manual) 1 Platelet Estimate Normal Hypochromasia (manual) Slight Anisocytosis (manual) Slight Puncture Site Lr pCO2 37 pO2 80 HCO3 29.6 H ABG pH 7.51 H ABG Total CO2 30.6 H ABG O2 Saturation 98.6 H ABG Base Excess 6.0 H ABG Hemoglobin 8.0 L ABG Carboxyhemoglobin 3.0 H POC ABG HHb (Measured) 1.3 ABG Methemoglobin 1.2 Stephen Test Na A-a O2 Difference 159.0 Respiratory Index 2.0 Hgb O2 Saturation 94.4 L Vent Mode Prvc Mechanical Rate 10 FiO2 40.0 Tidal Volume 450 PEEP 5 Sodium Potassium Chloride Carbon Dioxide Anion Gap BUN Creatinine Est GFR ( Amer) Est GFR (Non-Af Amer) POC Glucose (mg/dL) 123 H Random Glucose Calcium Phosphorus Magnesium Total Bilirubin AST ALT Alkaline Phosphatase Total Protein Albumin Globulin Albumin/Globulin Ratio HIV 1&2 Antibody Screen 09/10/17 09/10/17 06:11 11:46 WBC RBC Hgb Hct MCV MCH MCHC RDW Plt Count MPV Neut % (Auto) Lymph % (Auto) [place] % (Auto) Eos % (Auto) Baso % (Auto) Neut # Lymph # [place] # Eos # Baso # Neutrophils % (Manual) Band Neutrophils % Lymphocytes % (Manual) Reactive Lymphs % Monocytes % (Manual) Eosinophils % (Manual) Platelet Estimate Hypochromasia (manual) Anisocytosis (manual) Puncture Site pCO2 pO2 HCO3 ABG pH ABG Total CO2 ABG O2 Saturation ABG Base Excess ABG Hemoglobin ABG Carboxyhemoglobin POC ABG HHb (Measured) ABG Methemoglobin Stephen Test A-a O2 Difference Respiratory Index Hgb O2 Saturation Vent Mode Mechanical Rate FiO2 Tidal Volume PEEP Sodium 136 Potassium 3.3 L Chloride 100 Carbon Dioxide 26 Anion Gap 13 BUN 7 Creatinine 0.3 L Est GFR ( Amer) > 60 Est GFR (Non-Af Amer) > 60 POC Glucose (mg/dL) 102 Random Glucose 99 Calcium 9.1 Phosphorus 4.1 Magnesium 1.6 Total Bilirubin 2.1 H AST 47 H ALT 25 Alkaline Phosphatase 143 H D Total Protein 6.3 Albumin 2.5 L Globulin 3.8 Albumin/Globulin Ratio 0.7 L HIV 1&2 Antibody Screen Fingerstick Blood Sugar Results: 123 Review of Systems - Review of Systems Systems not reviewed;Unavailable: Intubated Assessment/Plan - Assessment and Plan (Free Text) Assessment: 36 year old female with past medical history of anemia and alcohol abuse, who was found unconscious by . EMS was called and patient was found to be in Asystole, ACLS protocol was initiated and 2 rounds of epinephrine and then ROSC. Patient was unconscious in the ED. Subsequently, patient was admitted to the ICU and hypothermia protocol was initiated. Plan: Neuro: Intubated, Acute seizures Neurologist, Dr. Pugh---> help appreciated * Management as per recommendation Medication/Management: * Keppra 500mg IV Q12H * Versed PRN * Propofol (Titratable) Imaging: * EEG (08/31/17): globally abnormal EEG because of persistent spike and wave activities consistent with status epilepticus. Please correlate the findings with neurological and radiological studies * Cerebral blood flow (09/03/17): does not conform to nuclear medicine diagnosis of brain . There is a faint cerebral flow, the study is considered technically suboptimal for reasons related to technique and poor visualization of carotid arteries. * CT head w/o contrast (09/03/17): No mass effect or edema. No atrophy or chronic microvascular. * EEG (09/06): status epilepticus Cardio: Cardiopulmonary Arrest Management: * Intubated * Hypothermia protocol was initiated Pulm: Respiratory distress secondary to cardiac arrest Management: * Intubated * sputum culture: MRSA * Zosyn 3.375 gm q6h * Dr. Dockery consulted for trach evaluation, help appreciated GI: Diarrhea * C. Dif negative Renal: Hyponatremia Nephrology, Dr. Ramos---> Help appreciated * Management as per recommendation * Potassium and Magnesium repleted * KCl 20mEq daily Heme: anemia * H/H dropped from 8.9/26.8 to 7.9/24.2 * monitor, if decreases will transfuse ID: * sputum culture: MRSA * Zosyn Psych: Alcohol abuse disorder * Thiamine 100mg IV daily * Psychiatric consult once patient is clinically stable Prophylaxis measures: * R IJ in place * DVT: SCDs, Heparin 5,000units SC Q12H * GI: Protonix 40mg IV daily * tube feeds: jevity 20cc/hr
[2017-09-10] MEDS: Potassium Chloride 20 mEq/15 ml LIQ UD PO SCH (15:07)
--- NOTE | 2017-09-10 15:37 | CP.PCM.CON ---
<Kris Lopez - Last Filed: 09/10/17 15:37> History of Present Illness - History of Present Illness History of Present Illness: Surgery: Dr. Dockery CC: [place] HPI: 36F w. pmh of anemia and ETOH abuse presented to ED on 08/30 s/p cardiac arrest. Since this time pt has been intubated on mechanical ventilation. Surgery has been consulted for trach placement. PMH: anemia, EToH abuse PSH: x 3 Meds: MAR reviewed NKDA Social: +ETOH/tobacco, no drugs Fhx: non-contributory Review of Systems - Review of Systems Systems not reviewed;Unavailable: Acuity of Condition Past Patient History - Infectious Disease Hx of Infectious Diseases: None - Past Medical History & Family History Past Medical History?: Yes - Past Social History Smoking Status: Never Smoked - CARDIAC Hx Cardiac Disorders: No Other/Comment: As per family member : cardiac history of heart going "Fast" - PULMONARY Hx Pneumonia: Yes Other/Comment: smoker - NEUROLOGICAL Hx Neurological Disorder: No - HEENT Hx HEENT Problems: No - RENAL Hx Chronic Kidney Disease: No - ENDOCRINE/METABOLIC Hx Endocrine Disorders: No - HEMATOLOGICAL/ONCOLOGICAL Hx Anemia: Yes - INTEGUMENTARY Hx Dermatological Problems: Yes (HAS MULTIPLE HEALED OPEN LESION TO UPPER ARM, DARKENED SKIN DISCOLOR LLE) Hx Eczema: Yes Other/Comment: H/O OF HAVING HEAD LICE - MUSCULOSKELETAL/RHEUMATOLOGICAL Hx Musculoskeletal Disorders: No Hx Falls: Yes Hx Unsteady Gait: Yes - GASTROINTESTINAL Hx Gastrointestinal Disorders: No (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) HX Swallowing Problems: Yes (SORE THROAT 9-6-14) - GENITOURINARY/GYNECOLOGICAL Hx Genitourinary Disorders: Yes (6 ABORTIONS,3 CHILDREN ,H/O OF C SECTIONS X3) Other/Comment: MENORRHAGIA - PSYCHIATRIC Hx Depression: Yes Hx Substance Use: No - SURGICAL HISTORY Hx Section: Yes - ANESTHESIA Hx Anesthesia: Yes Hx Anesthesia Reactions: No Hx Malignant Hyperthermia: No Meds Allergies/Adverse Reactions: Allergies Allergy/AdvReac Type Severity Reaction Status Date / Time PORK Allergy NAUSEA Verified 01/05/17 11:15 tomato Allergy NAUSEA Verified 01/05/17 11:17 wheat Allergy NAUSEA Verified 01/05/17 11:16 - Medications Medications: Current Medications Artificial Tears (Lacri-Lube) 1 gm OS Q6H PRN PRN Reason: Sedation Last Admin: 09/06/17 20:10 Dose: 1 gm Piperacillin Sod/Tazobactam Sod (Zosyn 3.375 Gm Iv Premix) 3.375 gm in 50 mls @ 100 mls/hr IVPB Q6H [facility] Last Admin: 09/10/17 09:35 Dose: 100 mls/hr Propofol (Diprivan) 1,000 mg in 100 mls @ 2.3 mls/hr IV .Q24H PRN; Protocol; 5 MCG/KG/MIN PRN Reason: TITRATE PER MD ORDER Last Admin: 09/10/17 07:17 Dose: 32.61 mcg/kg/min, 14.999 mls/hr Levetiracetam 1,000 mg/ (Dextrose) 110 mls @ 440 mls/hr IVPB Q12H [facility] Last Admin: 09/10/17 05:12 Dose: 440 mls/hr Metoprolol Tartrate (Lopressor) 25 mg PO BID [facility] Last Admin: 09/10/17 09:20 Dose: 25 mg Midazolam HCl (Versed Inj) 2 mg IVP Q6H PRN PRN Reason: Seizure activity Pantoprazole Sodium (Protonix Inj) 40 mg IVP DAILY [facility] Last Admin: 09/10/17 09:02 Dose: 40 mg Potassium Chloride (Potassium Chloride Oral Soln) 20 meq PO DAILY [facility] Last Admin: 09/10/17 15:07 Dose: 20 meq Potassium Phos/Sodium Phos (Neutra-Phos) 1 pkt NG Q6 [facility] Last Admin: 09/10/17 12:01 Dose: 1 pkt Thiamine HCl (Vitamin B1 Inj) 100 mg IV DAILY [facility] Last Admin: 09/10/17 09:02 Dose: 100 mg Physical Exam - Constitutional Appears: Non-toxic, Chronically Ill - Head Exam Head Exam: ATRAUMATIC, NORMOCEPHALIC - Respiratory Exam Additional comments: intubated on vent - Cardiovascular Exam Cardiovascular Exam: +S1, +S2 - GI/Abdominal Exam GI & Abdominal Exam: Soft. absent: Tenderness - Extremities Exam Extremities exam: Negative for: calf tenderness, pedal edema Results - Vital Signs Recent Vital Signs: Last Vital Signs Temp 97.4 F L 09/10/17 12:00 Pulse 108 H 09/10/17 15:00 Resp 24 09/10/17 15:00 BP 104/76 09/10/17 15:00 Pulse Ox 100 09/10/17 15:00 - Labs Result Diagrams: 09/10/17 06:11 09/10/17 06:11 Labs: Laboratory Results - last 24 hr 09/09/17 09/09/17 09/10/17 06:36 17:52 00:31 WBC RBC Hgb Hct MCV MCH MCHC RDW Plt Count MPV Neut % (Auto) Lymph % (Auto) Sterling % (Auto) Eos % (Auto) Baso % (Auto) Neut # Lymph # Sterling # Eos # Baso # Neutrophils % (Manual) Band Neutrophils % Lymphocytes % (Manual) Reactive Lymphs % Monocytes % (Manual) Eosinophils % (Manual) Platelet Estimate Hypochromasia (manual) Anisocytosis (manual) Puncture Site pCO2 pO2 HCO3 ABG pH ABG Total CO2 ABG O2 Saturation ABG Base Excess ABG Hemoglobin ABG Carboxyhemoglobin POC ABG HHb (Measured) ABG Methemoglobin Stephen Test A-a O2 Difference Respiratory Index Hgb O2 Saturation Vent Mode Mechanical Rate FiO2 Tidal Volume PEEP Sodium Potassium Chloride Carbon Dioxide Anion Gap BUN Creatinine Est GFR ( Amer) Est GFR (Non-Af Amer) POC Glucose (mg/dL) 129 H 127 H Random Glucose Calcium Phosphorus Magnesium Total Bilirubin AST ALT Alkaline Phosphatase Total Protein Albumin Globulin Albumin/Globulin Ratio HIV 1&2 Antibody Screen Negative 09/10/17 09/10/17 09/10/17 05:00 05:44 06:11 WBC 14.8 H RBC 2.67 L Hgb 7.9 L Hct 24.2 L MCV 90.7 MCH 29.7 MCHC 32.8 L RDW 15.7 H Plt Count 237 MPV 8.2 Neut % (Auto) 85.4 H Lymph % (Auto) 8.7 L Sterling % (Auto) 4.7 Eos % (Auto) 0.7 Baso % (Auto) 0.5 Neut # 12.6 H Lymph # 1.3 Sterling # 0.7 Eos # 0.1 Baso # 0.1 Neutrophils % (Manual) 81 H Band Neutrophils % 3 H Lymphocytes % (Manual) 11 L Reactive Lymphs % 2 H Monocytes % (Manual) 2 Eosinophils % (Manual) 1 Platelet Estimate Normal Hypochromasia (manual) Slight Anisocytosis (manual) Slight Puncture Site Lr pCO2 37 pO2 80 HCO3 29.6 H ABG pH 7.51 H ABG Total CO2 30.6 H ABG O2 Saturation 98.6 H ABG Base Excess 6.0 H ABG Hemoglobin 8.0 L ABG Carboxyhemoglobin 3.0 H POC ABG HHb (Measured) 1.3 ABG Methemoglobin 1.2 Stephen Test Na A-a O2 Difference 159.0 Respiratory Index 2.0 Hgb O2 Saturation 94.4 L Vent Mode Prvc Mechanical Rate 10 FiO2 40.0 Tidal Volume 450 PEEP 5 Sodium Potassium Chloride Carbon Dioxide Anion Gap BUN Creatinine Est GFR ( Amer) Est GFR (Non-Af Amer) POC Glucose (mg/dL) 123 H Random Glucose Calcium Phosphorus Magnesium Total Bilirubin AST ALT Alkaline Phosphatase Total Protein Albumin Globulin Albumin/Globulin Ratio HIV 1&2 Antibody Screen 09/10/17 09/10/17 06:11 11:46 WBC RBC Hgb Hct MCV MCH MCHC RDW Plt Count MPV Neut % (Auto) Lymph % (Auto) Sterling % (Auto) Eos % (Auto) Baso % (Auto) Neut # Lymph # Sterling # Eos # Baso # Neutrophils % (Manual) Band Neutrophils % Lymphocytes % (Manual) Reactive Lymphs % Monocytes % (Manual) Eosinophils % (Manual) Platelet Estimate Hypochromasia (manual) Anisocytosis (manual) Puncture Site pCO2 pO2 HCO3 ABG pH ABG Total CO2 ABG O2 Saturation ABG Base Excess ABG Hemoglobin ABG Carboxyhemoglobin POC ABG HHb (Measured) ABG Methemoglobin Stephen Test A-a O2 Difference Respiratory Index Hgb O2 Saturation Vent Mode Mechanical Rate FiO2 Tidal Volume PEEP Sodium 136 Potassium 3.3 L Chloride 100 Carbon Dioxide 26 Anion Gap 13 BUN 7 Creatinine 0.3 L Est GFR ( Amer) > 60 Est GFR (Non-Af Amer) > 60 POC Glucose (mg/dL) 102 Random Glucose 99 Calcium 9.1 Phosphorus 4.1 Magnesium 1.6 Total Bilirubin 2.1 H AST 47 H ALT 25 Alkaline Phosphatase 143 H D Total Protein 6.3 Albumin 2.5 L Globulin 3.8 Albumin/Globulin Ratio 0.7 L HIV 1&2 Antibody Screen Assessment & Plan - Assessment and Plan (Free Text) Assessment: 36F s/p cardiac arrest w. respiratory failure -will reach out to family to discuss trach -d/w stacey Lopez PGY3 <Josef Dockery Last Filed: 09/16/17 17:29> Meds - Medications Medications: Current Medications Acetaminophen (Tylenol 650mg/20.3ml Solution Ud) 650 mg NG Q6 PRN PRN Reason: Temperature Last Admin: 09/16/17 02:29 Dose: 650 mg Artificial Tears (Lacri-Lube) 1 gm OS Q6H PRN PRN Reason: Sedation Last Admin: 09/06/17 20:10 Dose: 1 gm Diltiazem HCl (Cardizem) 30 mg PO TID [facility] Last Admin: 09/16/17 17:02 Dose: 30 mg Heparin Sodium (Porcine) (Heparin) 5,000 units SC Q12 [facility] Last Admin: 09/16/17 09:22 Dose: 5,000 units Levetiracetam 1,000 mg/ (Dextrose) 110 mls @ 440 mls/hr IVPB Q12H [facility] Last Admin: 09/16/17 17:01 Dose: 440 mls/hr Fluconazole (Diflucan Iv 100 Mg/50 Ml Ns) 50 mls @ 50 mls/hr IVPB DAILY [facility] Last Admin: 09/16/17 09:25 Dose: 50 mls/hr Cefepime HCl (Maxipime Iv 2 Gm Premix) 2 gm in 100 mls @ 200 mls/hr IVPB Q8H [facility] Stop: 09/20/17 11:01 Last Admin: 09/16/17 10:39 Dose: 200 mls/hr Vancomycin/Sodium Chloride (Vancomycin 1 Gm/Ns 200 Ml) 1 gm in 200 mls @ 133.333 mls/hr IVPB Q12H [facility] Stop: 09/21/17 13:01 Last Admin: 09/16/17 12:42 Dose: 133.333 mls/hr Metoprolol Tartrate (Lopressor) 25 mg PO Q8H [facility] Last Admin: 09/16/17 12:42 Dose: 25 mg Midazolam HCl (Versed Inj) 2 mg IVP Q6H PRN PRN Reason: Seizure activity Last Admin: 09/15/17 03:41 Dose: 2 mg Pantoprazole Sodium (Protonix Inj) 40 mg IVP DAILY [facility] Last Admin: 09/16/17 09:25 Dose: 40 mg Potassium Chloride (Potassium Chloride Oral Soln) 20 meq PO DAILY [facility] Last Admin: 09/16/17 09:21 Dose: 20 meq Scopolamine (Transderm-Scop) 1 patch TD Q3D [facility] Last Admin: 09/14/17 22:23 Dose: 1 patch Thiamine HCl (Vitamin B1 Inj) 100 mg IV DAILY [facility] Last Admin: 09/16/17 09:23 Dose: 100 mg Results - Vital Signs Recent Vital Signs: Last Vital Signs Temp 99.0 F 09/16/17 13:55 Pulse 132 H 09/16/17 17:00 Resp 21 09/16/17 17:00 BP 115/55 L 09/16/17 16:47 Pulse Ox 99 09/16/17 17:00 - Labs Result Diagrams: 09/16/17 06:45 09/16/17 06:45 Labs: Laboratory Results - last 24 hr 09/16/17 09/16/17 06:45 06:45 WBC 16.5 H RBC 3.45 L Hgb 10.1 L Hct 31.4 L MCV 91.1 MCH 29.2 MCHC 32.1 L RDW 14.9 H Plt Count 419 H MPV 8.7 Neut % (Auto) 77.5 H Lymph % (Auto) 11.7 L Sterling % (Auto) 8.2 Eos % (Auto) 2.2 Baso % (Auto) 0.4 Neut # 12.8 H Lymph # 1.9 Sterling # 1.3 H Eos # 0.4 Baso # 0.1 Sodium 131 L Potassium 3.2 L Chloride 95 L Carbon Dioxide 26 Anion Gap 14 BUN 12 Creatinine 0.3 L Est GFR ( Amer) > 60 Est GFR (Non-Af Amer) > 60 Random Glucose 106 H Calcium 10.3 Phosphorus 3.3 Magnesium 1.7 Total Bilirubin 1.1 AST 28 ALT 34 Alkaline Phosphatase 141 H Total Protein 8.0 Albumin 3.3 L Globulin 4.7 H Albumin/Globulin Ratio 0.7 L Attending/Attestation - Attestation I have personally seen and examined this patient.: Yes I have fully participated in the care of the patient.: Yes I have reviewed all pertinent clinical information: Yes Notes (Text): Pt was seen and examined at bedside Agree with above note and assessment Pt with Cardiac arrest and anoxic brain injury Labs and radiology reviewed Chart reviewed. OR for Trach and PEG tomorrow Consent Plan d.w family in detail Risk and benefit explained
[2017-09-10] MEDS: Midazolam 2 MG/2 ML VIAL IVP PRN ×2 (17:23→22:26)
--- NOTE | 2017-09-10 19:11 | CP.PCM.PN ---
Subjective - Date & Time of Evaluation Date of Evaluation: 09/10/17 Time of Evaluation: 19:09 - Subjective Subjective: intubated.comatose Objective - Vital Signs/Intake and Output Vital Signs (last 24 hours): Temp Pulse Resp BP Pulse Ox 97.6 F 110 H 17 111/79 100 09/10/17 16:00 09/10/17 18:00 09/10/17 18:00 09/10/17 18:00 09/10/17 18:00 Intake and Output: 09/10/17 09/11/17 18:59 06:59 Intake Total 940 Output Total 760 Balance 180 - Medications Medications: Current Medications Artificial Tears (Lacri-Lube) 1 gm OS Q6H PRN PRN Reason: Sedation Last Admin: 09/06/17 20:10 Dose: 1 gm Piperacillin Sod/Tazobactam Sod (Zosyn 3.375 Gm Iv Premix) 3.375 gm in 50 mls @ 100 mls/hr IVPB Q6H [facility] Last Admin: 09/10/17 16:19 Dose: 100 mls/hr Propofol (Diprivan) 1,000 mg in 100 mls @ 2.3 mls/hr IV .Q24H PRN; Protocol; 5 MCG/KG/MIN PRN Reason: TITRATE PER MD ORDER Last Admin: 09/10/17 17:22 Dose: 32.61 mcg/kg/min, 14.999 mls/hr Levetiracetam 1,000 mg/ (Dextrose) 110 mls @ 440 mls/hr IVPB Q12H [facility] Last Admin: 09/10/17 17:02 Dose: 440 mls/hr Metoprolol Tartrate (Lopressor) 25 mg PO BID [facility] Last Admin: 09/10/17 17:02 Dose: 25 mg Midazolam HCl (Versed Inj) 2 mg IVP Q6H PRN PRN Reason: Seizure activity Last Admin: 09/10/17 17:23 Dose: 2 mg Pantoprazole Sodium (Protonix Inj) 40 mg IVP DAILY [facility] Last Admin: 09/10/17 09:02 Dose: 40 mg Potassium Chloride (Potassium Chloride Oral Soln) 20 meq PO DAILY [facility] Last Admin: 09/10/17 15:07 Dose: 20 meq Potassium Phos/Sodium Phos (Neutra-Phos) 1 pkt NG Q6 [facility] Last Admin: 09/10/17 17:02 Dose: 1 pkt Thiamine HCl (Vitamin B1 Inj) 100 mg IV DAILY [facility] Last Admin: 09/10/17 09:02 Dose: 100 mg - Labs Labs: 09/10/17 06:11 09/10/17 06:11 PT 14.4 SECONDS (9.7-12.2) H 08/30/17 19:30 INR 1.3 08/30/17 19:30 APTT 28 SECONDS (21-34) 08/30/17 19:30 - Respiratory Exam Respiratory Exam: Clear to Ausculation Bilateral - Cardiovascular Exam Cardiovascular Exam: Tachycardia, REGULAR RHYTHM - GI/Abdominal Exam GI & Abdominal Exam: Soft Assessment and Plan - Assessment and Plan (Free Text) Assessment: anoxic encphalopathy. nothing more to add cardiac barry.normal lv & rv. will follow only at your request. will sign off. thanks
--- NOTE | 2017-09-10 23:53 | PN ---
DATE: 09/10/2017 SUBJECTIVE: The patient is seen and examined at the bedside. No change in her condition. Remains unresponsive, intubated. PHYSICAL EXAMINATION: VITAL SIGNS: Blood pressure 111/79, pulse 118, respiration 17, temperature is 97.6 degrees Fahrenheit and O2 sat is 100% on 40% FiO2, tidal volume 450, set rate of 14, PEEP of 5, breathing over the vent. INTAKE AND OUTPUT: Intake is 1627 mL and output is 4420 mL. HEENT: Pupils are sluggishly reacting to light. No icterus. Positive pallor. ET tube and gastric tube in the oral cavity. NECK: Supple. LUNGS: Bilateral vesicular breath sounds. Bilateral basal crackles heard. CARDIOVASCULAR: S1 and S2 present, tachycardic. ABDOMEN: Soft. Bowel sounds present. No guarding. No rigidity. CENTRAL NERVOUS SYSTEM: Sedated, intubated, unresponsive, intermittent involuntary movements, not responding to the painful stimuli or verbal stimuli. EXTREMITIES: No edema. MEDICATIONS: Include Keppra 1 g q.12 hours, Lopressor 25 mg p.o. b.i.d., Versed 2 mg IV push q.6 p.r.n. for seizures, Protonix 40 mg IV push daily, Zosyn 3.375 g IV q.6 hours, KCl 20 mEq p.o. daily, Neutra-Phos 1 pack q.6, Diprivan 5 mg/kg/minute and thiamine 100 mg daily. LABORATORY DATA: Labs from this morning, WBC 14.8, hemoglobin 7.9, hematocrit 24.2 and platelets 237. ABG on 40% FiO2, pH 7.51, pCO2 of 37, pO2 of 80 and O2 sat 98.6%. Sodium 136, potassium 3.3, chloride 100, bicarbonate 26, BUN 7, creatinine 0.3, glucose 123, calcium 9.1, phosphorus 4.1, magnesium 1.6, bilirubin 2.1, AST 47, ALT 25, alkaline phosphatase is 143, total protein 6.3 and albumin 2.5. ASSESSMENT AND PLAN: Middle-aged female with EtOH abuse, substance abuse; status post back surgery for back problems, wheelchair bound, multiple admissions to [facility] and [facility] prior, admitted status post cardiac arrest, ventilator-dependent respiratory failure, anoxic encephalopathy with seizure activity on multiple seizure medications, multiple electrolyte abnormalities, sinus tachycardia, anemia and diarrhea. Neurological status remains the same, ventilator-dependent, O2 saturation more than 90% on 40% FiO2. Replace potassium and magnesium. Monitor H&H. Continue gastrointestinal and deep venous thrombosis prophylaxis. Awaiting for the patient's family to decide on DO NOT RESUSCITATE and terminal extubation. Medical ethics consult requested with Dr. Miranda. We will re-consult palliative care. Neurology input appreciated. A repeat CT no new changes. The patient's condition is critical and prognosis is guarded. Phoenix Caballero MD
[2017-09-11] MEDS: Propofol 10 mg/ml 1,000 MG/100 ML VIAL IV PRN ×4 (00:47→17:04)
[2017-09-11] MEDS: Piperacill/Tazo 3.375gm in Dex 3.375 GM/50 ML BAG IVPB SCH ×3 (04:29→10:30)
[2017-09-11] MEDS: Potassium & Sodium Phosphate NG SCH ×4 (05:50→23:08)
[2017-09-11 06:05] LABS: ABG ALLEN TEST POS; ABG MECHANICAL RATE 10; ARTERIAL BLOOD GAS MODE PRVC; ARTERIAL BLOOD HGB O2 SAT 97.1 % (95.0-98.0); ATERIAL BLOOD GAS PEEP 5; CARBOXYHEMOGLOBIN 3.1 % (0.5-1.5); DRAW SITE RR; METHEMOGLOBIN 0.8 % (0.0-3.0)
[2017-09-11 06:32] LABS: BASO # 0.1 K/uL (0.0-0.2); BASO % 0.4 % (0.0-2.0); EOS # 0.2 K/uL (0.0-0.7); EOS % 1.4 % (0.0-4.0); HEMATOCRIT 24.5 % (34.0-47.0); LYMPH # 1.2 K/uL (1.0-4.3); LYMPH % 7.9 % (20.0-40.0); MEAN CELL VOLUME 90.8 fL (81.0-99.0); MEAN CORPUSCULAR HEMOGLOBIN 30.1 pg (27.0-31.0); MEAN CORPUSCULAR HGB CONC 33.2 g/dL (33.0-37.0); MEAN PLATELET VOLUME 7.9 fL (7.2-11.7); MONO # 0.9 K/uL (0.0-0.8); MONO % 5.9 % (0.0-10.0); PLATELET COUNT 285 K/uL (130-400); RED CELL DISTRIBUTION WIDTH 15.4 % (11.5-14.5); WHITE BLOOD COUNT 15.4 K/uL (4.8-10.8)
[2017-09-11 06:49] LABS: CHLORIDE 100 mmol/L (98-107); SODIUM 137 mmol/L (132-148)
[2017-09-11 06:50] LABS: POTASSIUM 3.1 mmol/L (3.6-5.2)
[2017-09-11 06:51] LABS: GFR AFRICAN-AMERICAN > 60
[2017-09-11 06:52] LABS: ALB/GLOB RATIO 0.7 (1.0-2.1); ALKALINE PHOSPHATASE 167 U/L (38-126); ALT/SGPT 39 U/L (9-52); AST/SGOT 52 U/L (14-36); BILIRUBIN,TOTAL 1.6 mg/dL (0.2-1.3); BLOOD UREA NITROGEN 7 mg/dL (7-17); CALCIUM 9.4 mg/dl (8.6-10.4); CARBON DIOXIDE 27 mmol/L (22-30); GLUCOSE,RANDOM 86 mg/dL (65-105); MAGNESIUM 1.5 mg/dL (1.6-2.3); TOTAL PROTEIN 6.5 g/dL (6.3-8.3)
[2017-09-11 08:34] LABS: METAMYELOCYTE 1 % (0-0); NEUTROPHIL 73 % (50-75); REACTIVE LYMPHOCYTES 1 % (0-0); TOTAL CELLS COUNTED 100
--- NOTE | 2017-09-11 08:40 | CP.PCM.PN ---
Addendum entered and electronically signed by Kris Lopez DO 09/11/17 09: 41: will tentatively plan for Trach tomorrow d/w attending Jessica PGY3 Original Note: <Kris Lopez - Last Filed: 09/11/17 08:41> Subjective - Date & Time of Evaluation Date of Evaluation: 09/11/17 Time of Evaluation: 08:38 - Subjective Subjective: Surgery: Dr. Dockery Pt seen and examined. Tachycardic overnight w. low grade temperature. Remains unresponsive Objective - Vital Signs/Intake and Output Vital Signs (last 24 hours): Temp Pulse Resp BP Pulse Ox 100.1 F H 125 H 25 H 131/81 99 09/11/17 00:00 09/11/17 06:01 09/11/17 06:01 09/11/17 06:01 09/11/17 05:01 Intake and Output: 09/11/17 09/11/17 06:59 18:59 Intake Total 630 Output Total 670 Balance -40 - Medications Medications: Current Medications Artificial Tears (Lacri-Lube) 1 gm OS Q6H PRN PRN Reason: Sedation Last Admin: 09/06/17 20:10 Dose: 1 gm Piperacillin Sod/Tazobactam Sod (Zosyn 3.375 Gm Iv Premix) 3.375 gm in 50 mls @ 100 mls/hr IVPB Q6H [facility] Last Admin: 09/11/17 04:29 Dose: 100 mls/hr Propofol (Diprivan) 1,000 mg in 100 mls @ 2.3 mls/hr IV .Q24H PRN; Protocol; 5 MCG/KG/MIN PRN Reason: TITRATE PER MD ORDER Last Admin: 09/11/17 05:50 Dose: 32.61 mcg/kg/min, 14.999 mls/hr Levetiracetam 1,000 mg/ (Dextrose) 110 mls @ 440 mls/hr IVPB Q12H [facility] Last Admin: 09/11/17 06:18 Dose: 440 mls/hr Magnesium Sulfate/Dextrose (Magnesium Sulfate 1 Gm/100 Ml D5w) 1 gm in 100 mls @ 300 mls/hr IVPB Q30M [facility] Stop: 09/11/17 08:49 Potassium Chloride (Potassium Chloride 10 Meq/100 Ml) 10 meq in 100 mls @ 100 mls/hr IVPB Q1H [facility] Potassium Chloride (Potassium Chloride 10 Meq/100 Ml) 10 meq in 100 mls @ 100 mls/hr IVPB Q1H [facility] Stop: 09/11/17 13:59 Metoprolol Tartrate (Lopressor) 25 mg PO BID [facility] Last Admin: 09/10/17 17:02 Dose: 25 mg Midazolam HCl (Versed Inj) 2 mg IVP Q6H PRN PRN Reason: Seizure activity Last Admin: 09/10/17 22:26 Dose: 2 mg Pantoprazole Sodium (Protonix Inj) 40 mg IVP DAILY [facility] Last Admin: 09/10/17 09:02 Dose: 40 mg Potassium Chloride (Potassium Chloride Oral Soln) 20 meq PO DAILY [facility] Last Admin: 09/10/17 15:07 Dose: 20 meq Potassium Phos/Sodium Phos (Neutra-Phos) 1 pkt NG Q6 [facility] Last Admin: 09/11/17 05:50 Dose: 1 pkt Thiamine HCl (Vitamin B1 Inj) 100 mg IV DAILY [facility] Last Admin: 09/10/17 09:02 Dose: 100 mg - Labs Labs: 09/11/17 06:20 09/11/17 06:18 PT 14.4 SECONDS (9.7-12.2) H 08/30/17 19:30 INR 1.3 08/30/17 19:30 APTT 28 SECONDS (21-34) 08/30/17 19:30 - Constitutional Appears: Non-toxic, No Acute Distress - Head Exam Head Exam: ATRAUMATIC, NORMOCEPHALIC - ENT Exam ENT Exam: Mucous Membranes Moist - Respiratory Exam Additional comments: intubated on vent - GI/Abdominal Exam GI & Abdominal Exam: Soft. absent: Tenderness - Neurological Exam Neurological Exam: absent: Alert, Awake, Oriented x3 Assessment and Plan - Assessment and Plan (Free Text) Assessment: 36F s/p cardiac arrest w. respiratory failure, needs trach -pt has persistent tachycardia, will postpone trach until pt is medically optimized -will continue to follow -d/w attending Jessica PGY3 <Josef Dockery - Last Filed: 09/16/17 17:28> Objective - Vital Signs/Intake and Output Vital Signs (last 24 hours): Temp Pulse Resp BP Pulse Ox 99.0 F 132 H 21 115/55 L 99 09/16/17 13:55 09/16/17 17:00 09/16/17 17:00 09/16/17 16:47 09/16/17 17:00 Intake and Output: 09/16/17 09/16/17 06:59 18:59 Intake Total 685 Output Total 340 Balance 345 - Medications Medications: Current Medications Acetaminophen (Tylenol 650mg/20.3ml Solution Ud) 650 mg NG Q6 PRN PRN Reason: Temperature Last Admin: 09/16/17 02:29 Dose: 650 mg Artificial Tears (Lacri-Lube) 1 gm OS Q6H PRN PRN Reason: Sedation Last Admin: 09/06/17 20:10 Dose: 1 gm Diltiazem HCl (Cardizem) 30 mg PO TID [facility] Last Admin: 09/16/17 17:02 Dose: 30 mg Heparin Sodium (Porcine) (Heparin) 5,000 units SC Q12 [facility] Last Admin: 09/16/17 09:22 Dose: 5,000 units Levetiracetam 1,000 mg/ (Dextrose) 110 mls @ 440 mls/hr IVPB Q12H [facility] Last Admin: 09/16/17 17:01 Dose: 440 mls/hr Fluconazole (Diflucan Iv 100 Mg/50 Ml Ns) 50 mls @ 50 mls/hr IVPB DAILY [facility] Last Admin: 09/16/17 09:25 Dose: 50 mls/hr Cefepime HCl (Maxipime Iv 2 Gm Premix) 2 gm in 100 mls @ 200 mls/hr IVPB Q8H [facility] Stop: 09/20/17 11:01 Last Admin: 09/16/17 10:39 Dose: 200 mls/hr Vancomycin/Sodium Chloride (Vancomycin 1 Gm/Ns 200 Ml) 1 gm in 200 mls @ 133.333 mls/hr IVPB Q12H [facility] Stop: 09/21/17 13:01 Last Admin: 09/16/17 12:42 Dose: 133.333 mls/hr Metoprolol Tartrate (Lopressor) 25 mg PO Q8H [facility] Last Admin: 09/16/17 12:42 Dose: 25 mg Midazolam HCl (Versed Inj) 2 mg IVP Q6H PRN PRN Reason: Seizure activity Last Admin: 09/15/17 03:41 Dose: 2 mg Pantoprazole Sodium (Protonix Inj) 40 mg IVP DAILY [facility] Last Admin: 09/16/17 09:25 Dose: 40 mg Potassium Chloride (Potassium Chloride Oral Soln) 20 meq PO DAILY [facility] Last Admin: 09/16/17 09:21 Dose: 20 meq Scopolamine (Transderm-Scop) 1 patch TD Q3D [facility] Last Admin: 09/14/17 22:23 Dose: 1 patch Thiamine HCl (Vitamin B1 Inj) 100 mg IV DAILY [facility] Last Admin: 09/16/17 09:23 Dose: 100 mg - Labs Labs: 09/16/17 06:45 09/16/17 06:45 PT 14.4 SECONDS (9.7-12.2) H 08/30/17 19:30 INR 1.3 08/30/17 19:30 APTT 28 SECONDS (21-34) 08/30/17 19:30 Attending/Attestation - Attestation I have personally seen and examined this patient.: Yes I have fully participated in the care of the patient.: Yes I have reviewed all pertinent clinical information, including history, physical exam and plan: Yes Notes (Text): Pt was seen and examined at bedside Agree with above note and assessment Pt with persistent tachycardia Will postponed trach today C/w ICU monitoring HB is trending down Plan asif ICU attending Plan asif family in detail.
--- NOTE | 2017-09-11 08:48 | RAD ---
HISTORY: intubated COMPARISON: 09/10/2017 FINDINGS: LUNGS: Lines and tubes in stable position. Mild venous congestion. Right hilar prominence. Patchy increased markings at the left lung base. Biapical pleural thickening with upper lobe granulomatous changes. PLEURA: As above. CARDIOVASCULAR: Normal. OSSEOUS STRUCTURES: No significant abnormalities. VISUALIZED UPPER ABDOMEN: Normal. OTHER FINDINGS: None. IMPRESSION: Lines and tubes in stable position. Mild venous congestion. Right hilar prominence. Patchy increased markings at the left lung base. Biapical pleural thickening with upper lobe granulomatous changes.
[2017-09-11] MEDS: Magnesium Sulfate 1 gm in D5W 1 GM/100 ML BAG IVPB SCH ×2 (08:56→09:24)
[2017-09-11] MEDS: Thiamine 100 mg/ml Inj IV SCH (09:12)
[2017-09-11] MEDS: Potassium Chloride 20 mEq/15 ml LIQ UD PO SCH (09:14)
--- NOTE | 2017-09-11 10:39 | CP.PCM.PN ---
Subjective - Date & Time of Evaluation Date of Evaluation: 09/11/17 Time of Evaluation: 10:20 - Subjective Subjective: Progress note dictated #[id number] Objective - Vital Signs/Intake and Output Vital Signs (last 24 hours): Temp Pulse Resp BP Pulse Ox 100.1 F H 125 H 25 H 94/60 L 99 09/11/17 00:00 09/11/17 06:01 09/11/17 06:01 09/11/17 09:14 09/11/17 05:01 Intake and Output: 09/11/17 09/11/17 06:59 18:59 Intake Total 630 Output Total 670 Balance -40 - Medications Medications: Current Medications Artificial Tears (Lacri-Lube) 1 gm OS Q6H PRN PRN Reason: Sedation Last Admin: 09/06/17 20:10 Dose: 1 gm Propofol (Diprivan) 1,000 mg in 100 mls @ 2.3 mls/hr IV .Q24H PRN; Protocol; 5 MCG/KG/MIN PRN Reason: TITRATE PER MD ORDER Last Admin: 09/11/17 05:50 Dose: 32.61 mcg/kg/min, 14.999 mls/hr Levetiracetam 1,000 mg/ (Dextrose) 110 mls @ 440 mls/hr IVPB Q12H [facility] Last Admin: 09/11/17 06:18 Dose: 440 mls/hr Potassium Chloride (Potassium Chloride 10 Meq/100 Ml) 10 meq in 100 mls @ 100 mls/hr IVPB Q1H [facility] Potassium Chloride (Potassium Chloride 10 Meq/100 Ml) 10 meq in 100 mls @ 100 mls/hr IVPB Q1H [facility] Stop: 09/11/17 13:59 Metoprolol Tartrate (Lopressor) 25 mg PO BID [facility] Last Admin: 09/11/17 09:14 Dose: Not Given Midazolam HCl (Versed Inj) 2 mg IVP Q6H PRN PRN Reason: Seizure activity Last Admin: 09/10/17 22:26 Dose: 2 mg Pantoprazole Sodium (Protonix Inj) 40 mg IVP DAILY [facility] Last Admin: 09/11/17 09:13 Dose: 40 mg Potassium Chloride (Potassium Chloride Oral Soln) 20 meq PO DAILY [facility] Last Admin: 09/11/17 09:14 Dose: 20 meq Potassium Phos/Sodium Phos (Neutra-Phos) 1 pkt NG Q6 [facility] Last Admin: 09/11/17 05:50 Dose: 1 pkt Thiamine HCl (Vitamin B1 Inj) 100 mg IV DAILY [facility] Last Admin: 09/11/17 09:12 Dose: 100 mg - Labs Labs: 09/11/17 06:20 09/11/17 06:18 PT 14.4 SECONDS (9.7-12.2) H 08/30/17 19:30 INR 1.3 08/30/17 19:30 APTT 28 SECONDS (21-34) 08/30/17 19:30
--- NOTE | 2017-09-11 12:50 | CP.CCUPN ---
<Liset Massey - Last Filed: 09/11/17 17:43> CCU Subjective - Physician Review Subjective (Free Text): Patient seen and examined at bedside. Patient currently intubated. ROS unobtainable due to patient's current clinical status. CCU Objective - Vital Signs / Intake & Output Vital Signs (Last 4 hours): Vital Signs BP 09/11/17 09:14 94/60 L Intake and Output (Last 8hrs): Intake & Output 09/10/17 09/11/17 09/11/17 22:59 06:59 14:59 Intake Total 530 490 100 Output Total 470 500 Balance 60 -10 100 Intake: IV 100 200 100 Intake, IV Amount 270 270 Right Medial Port 150 150 Internal Jugular Right Proximal Port 120 120 Internal Jugular Tube Feeding 160 20 Output: Urine 470 500 Urethral (Andino) 470 500 - Physical Exam Head: Positive for: Atraumatic, Normocephalic Pupils: Positive for: Sluggish Extroacular Muscles: Negative for: EOMI Mouth: Positive for: Moist Mucous Membranes Respiratory/Chest: Positive for: Good Air Exchange, Other (intubated ) Cardiovascular: Positive for: Normal S1, S2, Tachycardic Abdomen: Positive for: Normal Bowel Sounds. Negative for: Distention Upper Extremity: Negative for: Edema Lower Extremity: Negative for: Edema Neurological: Negative for: GCS=15, Speech Normal Skin: Positive for: Normal Color Psychiatric: Negative for: Alert, Oriented x 3 - Medications Active Medications: Active Medications Generic Name Dose Route Start Last Admin Trade Name Freq PRN Reason Stop Dose Admin Artificial Tears 1 gm 08/31/17 12:00 09/06/17 20:10 Lacri-Lube OS 1 gm Q6H PRN Administration Sedation Propofol 1,000 mg in 100 mls @ 2.3 mls/hr 09/05/17 15:59 09/11/17 12:19 Diprivan IV 32.61 mcg/kg/min .Q24H PRN 14.999 mls/hr TITRATE PER MD ORDER Administration Protocol 5 MCG/KG/MIN Levetiracetam 1,000 mg/ 110 mls @ 440 mls/hr 09/10/17 06:00 09/11/17 06:18 Dextrose IVPB 440 mls/hr Q12H [facility] Administration Potassium Chloride 10 meq in 100 mls @ 100 mls/hr 09/11/17 10:00 09/11/17 12: 21 Potassium Chloride 10 Meq/100 Ml IVPB Not Given Q1H [facility] Potassium Chloride 10 meq in 100 mls @ 100 mls/hr 09/11/17 12:00 09/11/17 12: 20 Potassium Chloride 10 Meq/100 Ml IVPB 09/11/17 13:59 100 mls/hr Q1H [facility] Administration Metoprolol Tartrate 25 mg 09/08/17 19:30 09/11/17 09:14 Lopressor PO Not Given BID [facility] Midazolam HCl 2 mg 09/10/17 10:52 09/10/17 22:26 Versed Inj IVP 2 mg Q6H PRN Administration Seizure activity Pantoprazole Sodium 40 mg 08/31/17 10:00 09/11/17 09:13 Protonix Inj IVP 40 mg DAILY [facility] Administration Potassium Chloride 20 meq 09/10/17 14:00 09/11/17 09:14 Potassium Chloride Oral Soln PO 20 meq DAILY [facility] Administration Potassium Phos/Sodium Phos 1 pkt 09/01/17 10:30 09/11/17 11:37 Neutra-Phos NG 1 pkt Q6 [facility] Administration Thiamine HCl 100 mg 08/30/17 22:15 09/11/17 09:12 Vitamin B1 Inj IV 100 mg DAILY [facility] Administration - Patient Studies Lab Studies: Lab Studies 09/11/17 09/11/17 09/11/17 Range/Units 12:18 07:10 06:20 WBC 15.4 H (4.8-10.8) K/uL RBC 2.70 L (3.80-5.20) Mil/uL Hgb 8.1 L (11.0-16.0) g/dL Hct 24.5 L (34.0-47.0) % MCV 90.8 (81.0-99.0) fL MCH 30.1 (27.0-31.0) pg MCHC 33.2 (33.0-37.0) g/dL RDW 15.4 H (11.5-14.5) % Plt Count 285 (130-400) K/uL MPV 7.9 (7.2-11.7) fL Neut % (Auto) 84.4 H (50.0-75.0) % Lymph % (Auto) 7.9 L (20.0-40.0) % Benton % (Auto) 5.9 (0.0-10.0) % Eos % (Auto) 1.4 (0.0-4.0) % Baso % (Auto) 0.4 (0.0-2.0) % Neut # 13.0 H (1.8-7.0) K/uL Lymph # 1.2 (1.0-4.3) K/uL Benton # 0.9 H (0.0-0.8) K/uL Eos # 0.2 (0.0-0.7) K/uL Baso # 0.1 (0.0-0.2) K/uL Neutrophils % (Manual) 73 (50-75) % Band Neutrophils % 8 H (0-2) % Lymphocytes % (Manual) 11 L (20-40) % Reactive Lymphs % 1 H (0-0) % Monocytes % (Manual) 6 (0-10) % Metamyelocytes % 1 H (0-0) % Platelet Estimate Normal (NORMAL) Hypochromasia (manual) Slight Anisocytosis (manual) Slight D-Dimer, Quantitative 991 H (0-243) ng/mlDDU Puncture Site pCO2 (35-45) mm/Hg pO2 (80-100) mm/Hg HCO3 (21-28) mmol/L ABG pH (7.35-7.45) ABG Total CO2 (22-28) mmol/L ABG O2 Saturation (95-98) % ABG Base Excess (-2.0-3.0) mmol/L ABG Hemoglobin (11.7-17.4) g/dL ABG Carboxyhemoglobin (0.5-1.5) % POC ABG HHb (Measured) (0.0-5.0) % ABG Methemoglobin (0.0-3.0) % Stephen Test A-a O2 Difference mm/Hg Respiratory Index Hgb O2 Saturation (95.0-98.0) % Vent Mode Mechanical Rate FiO2 % Tidal Volume PEEP Crit Value Called To Crit Value Called By Crit Value Read Back Blood Gas Notified Time Sodium (132-148) mmol/L Potassium (3.6-5.2) mmol/L Chloride (98-107) mmol/L Carbon Dioxide (22-30) mmol/L Anion Gap (10-20) BUN (7-17) mg/dL Creatinine (0.7-1.2) mg/dL Est GFR ( Amer) Est GFR (Non-Af Amer) POC Glucose (mg/dL) 98 (65-110) mg/dL Random Glucose (65-105) mg/dL Calcium (8.6-10.4) mg/dl Phosphorus (2.5-4.5) mg/dL Magnesium (1.6-2.3) mg/dL Total Bilirubin (0.2-1.3) mg/dL AST (14-36) U/L ALT (9-52) U/L Alkaline Phosphatase (38-126) U/L Total Protein (6.3-8.3) g/dL Albumin (3.5-5.0) g/dL Globulin (2.2-3.9) gm/dL Albumin/Globulin Ratio (1.0-2.1) 09/11/17 09/11/17 Range/Units 06:18 05:10 WBC (4.8-10.8) K/uL RBC (3.80-5.20) Mil/uL Hgb (11.0-16.0) g/dL Hct (34.0-47.0) % MCV (81.0-99.0) fL MCH (27.0-31.0) pg MCHC (33.0-37.0) g/dL RDW (11.5-14.5) % Plt Count (130-400) K/uL MPV (7.2-11.7) fL Neut % (Auto) (50.0-75.0) % Lymph % (Auto) (20.0-40.0) % Benton % (Auto) (0.0-10.0) % Eos % (Auto) (0.0-4.0) % Baso % (Auto) (0.0-2.0) % Neut # (1.8-7.0) K/uL Lymph # (1.0-4.3) K/uL Benton # (0.0-0.8) K/uL Eos # (0.0-0.7) K/uL Baso # (0.0-0.2) K/uL Neutrophils % (Manual) (50-75) % Band Neutrophils % (0-2) % Lymphocytes % (Manual) (20-40) % Reactive Lymphs % (0-0) % Monocytes % (Manual) (0-10) % Metamyelocytes % (0-0) % Platelet Estimate (NORMAL) Hypochromasia (manual) Anisocytosis (manual) D-Dimer, Quantitative (0-243) ng/mlDDU Puncture Site Rr pCO2 34 L (35-45) mm/Hg pO2 181 H (80-100) mm/Hg HCO3 26.7 (21-28) mmol/L ABG pH 7.49 H (7.35-7.45) ABG Total CO2 26.9 (22-28) mmol/L ABG O2 Saturation 101.0 H (95-98) % ABG Base Excess 2.2 (-2.0-3.0) mmol/L ABG Hemoglobin 4.5 L (11.7-17.4) g/dL ABG Carboxyhemoglobin 3.1 H (0.5-1.5) % POC ABG HHb (Measured) -1.0 L (0.0-5.0) % ABG Methemoglobin 0.8 (0.0-3.0) % Stephen Test Pos A-a O2 Difference 62.0 mm/Hg Respiratory Index 0.3 Hgb O2 Saturation 97.1 (95.0-98.0) % Vent Mode Prvc Mechanical Rate 10 FiO2 40.0 % Tidal Volume 450 PEEP 5 Crit Value Called To Shon rn Crit Value Called By Raisa echo technologist Crit Value Read Back Y Blood Gas Notified Time 605 Sodium 137 (132-148) mmol/L Potassium 3.1 L (3.6-5.2) mmol/L Chloride 100 (98-107) mmol/L Carbon Dioxide 27 (22-30) mmol/L Anion Gap 13 (10-20) BUN 7 (7-17) mg/dL Creatinine 0.3 L (0.7-1.2) mg/dL Est GFR ( Amer) > 60 Est GFR (Non-Af Amer) > 60 POC Glucose (mg/dL) (65-110) mg/dL Random Glucose 86 (65-105) mg/dL Calcium 9.4 (8.6-10.4) mg/dl Phosphorus 4.0 (2.5-4.5) mg/dL Magnesium 1.5 L (1.6-2.3) mg/dL Total Bilirubin 1.6 H (0.2-1.3) mg/dL AST 52 H (14-36) U/L ALT 39 (9-52) U/L Alkaline Phosphatase 167 H (38-126) U/L Total Protein 6.5 (6.3-8.3) g/dL Albumin 2.6 L (3.5-5.0) g/dL Globulin 3.9 (2.2-3.9) gm/dL Albumin/Globulin Ratio 0.7 L (1.0-2.1) Laboratory Results - last 24 hr 09/11/17 09/11/17 09/11/17 05:10 06:18 06:20 WBC 15.4 H RBC 2.70 L Hgb 8.1 L Hct 24.5 L MCV 90.8 MCH 30.1 MCHC 33.2 RDW 15.4 H Plt Count 285 MPV 7.9 Neut % (Auto) 84.4 H Lymph % (Auto) 7.9 L Benton % (Auto) 5.9 Eos % (Auto) 1.4 Baso % (Auto) 0.4 Neut # 13.0 H Lymph # 1.2 Benton # 0.9 H Eos # 0.2 Baso # 0.1 Neutrophils % (Manual) 73 Band Neutrophils % 8 H Lymphocytes % (Manual) 11 L Reactive Lymphs % 1 H Monocytes % (Manual) 6 Metamyelocytes % 1 H Platelet Estimate Normal Hypochromasia (manual) Slight Anisocytosis (manual) Slight D-Dimer, Quantitative Puncture Site Rr pCO2 34 L pO2 181 H HCO3 26.7 ABG pH 7.49 H ABG Total CO2 26.9 ABG O2 Saturation 101.0 H ABG Base Excess 2.2 ABG Hemoglobin 4.5 L ABG Carboxyhemoglobin 3.1 H POC ABG HHb (Measured) -1.0 L ABG Methemoglobin 0.8 Stephen Test Pos A-a O2 Difference 62.0 Respiratory Index 0.3 Hgb O2 Saturation 97.1 Vent Mode Prvc Mechanical Rate 10 FiO2 40.0 Tidal Volume 450 PEEP 5 Crit Value Called To Shon rn Crit Value Called By Raisa echo technologist Crit Value Read Back Y Blood Gas Notified Time 605 Sodium 137 Potassium 3.1 L Chloride 100 Carbon Dioxide 27 Anion Gap 13 BUN 7 Creatinine 0.3 L Est GFR ( Amer) > 60 Est GFR (Non-Af Amer) > 60 POC Glucose (mg/dL) Random Glucose 86 Calcium 9.4 Phosphorus 4.0 Magnesium 1.5 L Total Bilirubin 1.6 H AST 52 H ALT 39 Alkaline Phosphatase 167 H Total Protein 6.5 Albumin 2.6 L Globulin 3.9 Albumin/Globulin Ratio 0.7 L 09/11/17 09/11/17 07:10 12:18 WBC RBC Hgb Hct MCV MCH MCHC RDW Plt Count MPV Neut % (Auto) Lymph % (Auto) Benton % (Auto) Eos % (Auto) Baso % (Auto) Neut # Lymph # Benton # Eos # Baso # Neutrophils % (Manual) Band Neutrophils % Lymphocytes % (Manual) Reactive Lymphs % Monocytes % (Manual) Metamyelocytes % Platelet Estimate Hypochromasia (manual) Anisocytosis (manual) D-Dimer, Quantitative 991 H Puncture Site pCO2 pO2 HCO3 ABG pH ABG Total CO2 ABG O2 Saturation ABG Base Excess ABG Hemoglobin ABG Carboxyhemoglobin POC ABG HHb (Measured) ABG Methemoglobin Stephen Test A-a O2 Difference Respiratory Index Hgb O2 Saturation Vent Mode Mechanical Rate FiO2 Tidal Volume PEEP Crit Value Called To Crit Value Called By Crit Value Read Back Blood Gas Notified Time Sodium Potassium Chloride Carbon Dioxide Anion Gap BUN Creatinine Est GFR ( Amer) Est GFR (Non-Af Amer) POC Glucose (mg/dL) 98 Random Glucose Calcium Phosphorus Magnesium Total Bilirubin AST ALT Alkaline Phosphatase Total Protein Albumin Globulin Albumin/Globulin Ratio Fingerstick Blood Sugar Results: 123 Review of Systems - Review of Systems Systems not reviewed;Unavailable: Intubated Critical Care Progress Note - Nutrition Nutrition: Nutrition Category Date Time Status NPO Diet [DIET] Diets 09/10/17 Breakfast Active Assessment/Plan - Assessment and Plan (Free Text) Assessment: 36 year old female with past medical history of anemia and alcohol abuse, who was found unconscious by . EMS was called and patient was found to be in Asystole, ACLS protocol was initiated and 2 rounds of epinephrine and then ROSC. Patient was unconscious in the ED. Subsequently, patient was admitted to the ICU and hypothermia protocol was initiated. Plan: Neuro: Intubated, Acute seizures Neurologist, Dr. Pugh---> help appreciated * Management as per recommendation Medication/Management: * Keppra 500mg IV Q12H * Versed PRN * Propofol (Titratable) Imaging: * EEG (08/31/17): globally abnormal EEG because of persistent spike and wave activities consistent with status epilepticus. Please correlate the findings with neurological and radiological studies * Cerebral blood flow (09/03/17): does not conform to nuclear medicine diagnosis of brain . There is a faint cerebral flow, the study is considered technically suboptimal for reasons related to technique and poor visualization of carotid arteries. * CT head w/o contrast (09/03/17): No mass effect or edema. No atrophy or chronic microvascular. * EEG (09/06): status epilepticus Cardio: Cardiopulmonary Arrest Management: * Intubated * Hypothermia protocol was initiated Pulm: Respiratory distress secondary to cardiac arrest Management: * Intubated * sputum culture: MRSA * Zosyn 3.375 gm q6h * Dr. Dockery consulted for trach evaluation, held until tomorrow due to persistent tachycardia * f/u CTA, D Dimer: 991 GI: Diarrhea * C. Dif negative Renal: Hyponatremia Nephrology, Dr. Ramos---> Help appreciated * Management as per recommendation * Potassium and Magnesium repleted * KCl 20mEq daily Heme: anemia * H/H: 8.1/24.5 ID: * sputum culture: MRSA * Zosyn Psych: Alcohol abuse disorder * Thiamine 100mg IV daily * Psychiatric consult once patient is clinically stable Prophylaxis measures: * R IJ in place * DVT: SCDs, Heparin 5,000units SC Q12H * GI: Protonix 40mg IV daily * tube feeds: jevity 20cc/hr <Burton Walters S - Last Filed: 09/11/17 17:56> CCU Objective - Vital Signs / Intake & Output Vital Signs (Last 4 hours): Vital Signs Pulse Resp BP Pulse Ox 09/11/17 17:06 98/67 L 09/11/17 14:00 131 H 21 95/65 L 98 Intake and Output (Last 8hrs): Intake & Output 09/11/17 09/11/17 09/11/17 06:59 14:59 22:59 Intake Total 490 850 205 Output Total 500 450 250 Balance -10 400 -45 Intake: IV 200 100 100 Intake, IV Amount 270 570 45 Right Distal Port 450 Internal Jugular Right Medial Port 150 120 45 Internal Jugular Right Proximal Port 120 Internal Jugular Tube Feeding 20 80 60 Other 100 Output: Urine 500 450 250 Urethral (Andino) 500 450 250 - Medications Active Medications: Active Medications Generic Name Dose Route Start Last Admin Trade Name Freq PRN Reason Stop Dose Admin Artificial Tears 1 gm 08/31/17 12:00 09/06/17 20:10 Lacri-Lube OS 1 gm Q6H PRN Administration Sedation Propofol 1,000 mg in 100 mls @ 2.3 mls/hr 09/05/17 15:59 09/11/17 17:04 Diprivan IV 32.61 mcg/kg/min .Q24H PRN 14.999 mls/hr TITRATE PER MD ORDER Administration Protocol 5 MCG/KG/MIN Levetiracetam 1,000 mg/ 110 mls @ 440 mls/hr 09/10/17 06:00 09/11/17 17:05 Dextrose IVPB 440 mls/hr Q12H [facility] Administration Metoprolol Tartrate 25 mg 09/08/17 19:30 09/11/17 17:06 Lopressor PO Not Given BID [facility] Midazolam HCl 2 mg 09/10/17 10:52 09/10/17 22:26 Versed Inj IVP 2 mg Q6H PRN Administration Seizure activity Pantoprazole Sodium 40 mg 08/31/17 10:00 09/11/17 09:13 Protonix Inj IVP 40 mg DAILY [facility] Administration Potassium Chloride 20 meq 09/10/17 14:00 09/11/17 09:14 Potassium Chloride Oral Soln PO 20 meq DAILY [facility] Administration Potassium Phos/Sodium Phos 1 pkt 09/01/17 10:30 09/11/17 17:05 Neutra-Phos NG 1 pkt Q6 [facility] Administration Thiamine HCl 100 mg 08/30/17 22:15 09/11/17 09:12 Vitamin B1 Inj IV 100 mg DAILY [facility] Administration - Patient Studies Lab Studies: Lab Studies 09/11/17 09/11/17 09/11/17 Range/Units 12:18 07:10 06:20 WBC 15.4 H (4.8-10.8) K/uL RBC 2.70 L (3.80-5.20) Mil/uL Hgb 8.1 L (11.0-16.0) g/dL Hct 24.5 L (34.0-47.0) % MCV 90.8 (81.0-99.0) fL MCH 30.1 (27.0-31.0) pg MCHC 33.2 (33.0-37.0) g/dL RDW 15.4 H (11.5-14.5) % Plt Count 285 (130-400) K/uL MPV 7.9 (7.2-11.7) fL Neut % (Auto) 84.4 H (50.0-75.0) % Lymph % (Auto) 7.9 L (20.0-40.0) % Benton % (Auto) 5.9 (0.0-10.0) % Eos % (Auto) 1.4 (0.0-4.0) % Baso % (Auto) 0.4 (0.0-2.0) % Neut # 13.0 H (1.8-7.0) K/uL Lymph # 1.2 (1.0-4.3) K/uL Benton # 0.9 H (0.0-0.8) K/uL Eos # 0.2 (0.0-0.7) K/uL Baso # 0.1 (0.0-0.2) K/uL Neutrophils % (Manual) 73 (50-75) % Band Neutrophils % 8 H (0-2) % Lymphocytes % (Manual) 11 L (20-40) % Reactive Lymphs % 1 H (0-0) % Monocytes % (Manual) 6 (0-10) % Metamyelocytes % 1 H (0-0) % Platelet Estimate Normal (NORMAL) Hypochromasia (manual) Slight Anisocytosis (manual) Slight D-Dimer, Quantitative 991 H (0-243) ng/mlDDU Puncture Site pCO2 (35-45) mm/Hg pO2 (80-100) mm/Hg HCO3 (21-28) mmol/L ABG pH (7.35-7.45) ABG Total CO2 (22-28) mmol/L ABG O2 Saturation (95-98) % ABG Base Excess (-2.0-3.0) mmol/L ABG Hemoglobin (11.7-17.4) g/dL ABG Carboxyhemoglobin (0.5-1.5) % POC ABG HHb (Measured) (0.0-5.0) % ABG Methemoglobin (0.0-3.0) % Stephen Test A-a O2 Difference mm/Hg Respiratory Index Hgb O2 Saturation (95.0-98.0) % Vent Mode Mechanical Rate FiO2 % Tidal Volume PEEP Crit Value Called To Crit Value Called By Crit Value Read Back Blood Gas Notified Time Sodium (132-148) mmol/L Potassium (3.6-5.2) mmol/L Chloride (98-107) mmol/L Carbon Dioxide (22-30) mmol/L Anion Gap (10-20) BUN (7-17) mg/dL Creatinine (0.7-1.2) mg/dL Est GFR ( Amer) Est GFR (Non-Af Amer) POC Glucose (mg/dL) 98 (65-110) mg/dL Random Glucose (65-105) mg/dL Calcium (8.6-10.4) mg/dl Phosphorus (2.5-4.5) mg/dL Magnesium (1.6-2.3) mg/dL Total Bilirubin (0.2-1.3) mg/dL AST (14-36) U/L ALT (9-52) U/L Alkaline Phosphatase (38-126) U/L Total Protein (6.3-8.3) g/dL Albumin (3.5-5.0) g/dL Globulin (2.2-3.9) gm/dL Albumin/Globulin Ratio (1.0-2.1) 09/11/17 09/11/17 Range/Units 06:18 05:10 WBC (4.8-10.8) K/uL RBC (3.80-5.20) Mil/uL Hgb (11.0-16.0) g/dL Hct (34.0-47.0) % MCV (81.0-99.0) fL MCH (27.0-31.0) pg MCHC (33.0-37.0) g/dL RDW (11.5-14.5) % Plt Count (130-400) K/uL MPV (7.2-11.7) fL Neut % (Auto) (50.0-75.0) % Lymph % (Auto) (20.0-40.0) % Benton % (Auto) (0.0-10.0) % Eos % (Auto) (0.0-4.0) % Baso % (Auto) (0.0-2.0) % Neut # (1.8-7.0) K/uL Lymph # (1.0-4.3) K/uL Benton # (0.0-0.8) K/uL Eos # (0.0-0.7) K/uL Baso # (0.0-0.2) K/uL Neutrophils % (Manual) (50-75) % Band Neutrophils % (0-2) % Lymphocytes % (Manual) (20-40) % Reactive Lymphs % (0-0) % Monocytes % (Manual) (0-10) % Metamyelocytes % (0-0) % Platelet Estimate (NORMAL) Hypochromasia (manual) Anisocytosis (manual) D-Dimer, Quantitative (0-243) ng/mlDDU Puncture Site Rr pCO2 34 L (35-45) mm/Hg pO2 181 H (80-100) mm/Hg HCO3 26.7 (21-28) mmol/L ABG pH 7.49 H (7.35-7.45) ABG Total CO2 26.9 (22-28) mmol/L ABG O2 Saturation 101.0 H (95-98) % ABG Base Excess 2.2 (-2.0-3.0) mmol/L ABG Hemoglobin 4.5 L (11.7-17.4) g/dL ABG Carboxyhemoglobin 3.1 H (0.5-1.5) % POC ABG HHb (Measured) -1.0 L (0.0-5.0) % ABG Methemoglobin 0.8 (0.0-3.0) % Stephen Test Pos A-a O2 Difference 62.0 mm/Hg Respiratory Index 0.3 Hgb O2 Saturation 97.1 (95.0-98.0) % Vent Mode Prvc Mechanical Rate 10 FiO2 40.0 % Tidal Volume 450 PEEP 5 Crit Value Called To Shon rn Crit Value Called By Raisa echo technologist Crit Value Read Back Y Blood Gas Notified Time 605 Sodium 137 (132-148) mmol/L Potassium 3.1 L (3.6-5.2) mmol/L Chloride 100 (98-107) mmol/L Carbon Dioxide 27 (22-30) mmol/L Anion Gap 13 (10-20) BUN 7 (7-17) mg/dL Creatinine 0.3 L (0.7-1.2) mg/dL Est GFR ( Amer) > 60 Est GFR (Non-Af Amer) > 60 POC Glucose (mg/dL) (65-110) mg/dL Random Glucose 86 (65-105) mg/dL Calcium 9.4 (8.6-10.4) mg/dl Phosphorus 4.0 (2.5-4.5) mg/dL Magnesium 1.5 L (1.6-2.3) mg/dL Total Bilirubin 1.6 H (0.2-1.3) mg/dL AST 52 H (14-36) U/L ALT 39 (9-52) U/L Alkaline Phosphatase 167 H (38-126) U/L Total Protein 6.5 (6.3-8.3) g/dL Albumin 2.6 L (3.5-5.0) g/dL Globulin 3.9 (2.2-3.9) gm/dL Albumin/Globulin Ratio 0.7 L (1.0-2.1) Laboratory Results - last 24 hr 09/11/17 09/11/17 09/11/17 05:10 06:18 06:20 WBC 15.4 H RBC 2.70 L Hgb 8.1 L Hct 24.5 L MCV 90.8 MCH 30.1 MCHC 33.2 RDW 15.4 H Plt Count 285 MPV 7.9 Neut % (Auto) 84.4 H Lymph % (Auto) 7.9 L Benton % (Auto) 5.9 Eos % (Auto) 1.4 Baso % (Auto) 0.4 Neut # 13.0 H Lymph # 1.2 Benton # 0.9 H Eos # 0.2 Baso # 0.1 Neutrophils % (Manual) 73 Band Neutrophils % 8 H Lymphocytes % (Manual) 11 L Reactive Lymphs % 1 H Monocytes % (Manual) 6 Metamyelocytes % 1 H Platelet Estimate Normal Hypochromasia (manual) Slight Anisocytosis (manual) Slight D-Dimer, Quantitative Puncture Site Rr pCO2 34 L pO2 181 H HCO3 26.7 ABG pH 7.49 H ABG Total CO2 26.9 ABG O2 Saturation 101.0 H ABG Base Excess 2.2 ABG Hemoglobin 4.5 L ABG Carboxyhemoglobin 3.1 H POC ABG HHb (Measured) -1.0 L ABG Methemoglobin 0.8 Stephen Test Pos A-a O2 Difference 62.0 Respiratory Index 0.3 Hgb O2 Saturation 97.1 Vent Mode Prvc Mechanical Rate 10 FiO2 40.0 Tidal Volume 450 PEEP 5 Crit Value Called To Shon rn Crit Value Called By Raisa echo technologist Crit Value Read Back Y Blood Gas Notified Time 605 Sodium 137 Potassium 3.1 L Chloride 100 Carbon Dioxide 27 Anion Gap 13 BUN 7 Creatinine 0.3 L Est GFR ( Amer) > 60 Est GFR (Non-Af Amer) > 60 POC Glucose (mg/dL) Random Glucose 86 Calcium 9.4 Phosphorus 4.0 Magnesium 1.5 L Total Bilirubin 1.6 H AST 52 H ALT 39 Alkaline Phosphatase 167 H Total Protein 6.5 Albumin 2.6 L Globulin 3.9 Albumin/Globulin Ratio 0.7 L 09/11/17 09/11/17 07:10 12:18 WBC RBC Hgb Hct MCV MCH MCHC RDW Plt Count MPV Neut % (Auto) Lymph % (Auto) Benton % (Auto) Eos % (Auto) Baso % (Auto) Neut # Lymph # Benton # Eos # Baso # Neutrophils % (Manual) Band Neutrophils % Lymphocytes % (Manual) Reactive Lymphs % Monocytes % (Manual) Metamyelocytes % Platelet Estimate Hypochromasia (manual) Anisocytosis (manual) D-Dimer, Quantitative 991 H Puncture Site pCO2 pO2 HCO3 ABG pH ABG Total CO2 ABG O2 Saturation ABG Base Excess ABG Hemoglobin ABG Carboxyhemoglobin POC ABG HHb (Measured) ABG Methemoglobin Stephen Test A-a O2 Difference Respiratory Index Hgb O2 Saturation Vent Mode Mechanical Rate FiO2 Tidal Volume PEEP Crit Value Called To Crit Value Called By Crit Value Read Back Blood Gas Notified Time Sodium Potassium Chloride Carbon Dioxide Anion Gap BUN Creatinine Est GFR ( Amer) Est GFR (Non-Af Amer) POC Glucose (mg/dL) 98 Random Glucose Calcium Phosphorus Magnesium Total Bilirubin AST ALT Alkaline Phosphatase Total Protein Albumin Globulin Albumin/Globulin Ratio Critical Care Progress Note - Nutrition Nutrition: Nutrition Category Date Time Status NPO Diet [DIET] Diets 09/10/17 Breakfast Active Attending/Attestation - Attestation I have personally seen and examined this patient.: Yes I have fully participated in the care of the patient.: Yes I have reviewed all pertinent clinical information: Yes Notes (Text): 09/11/17 17:55 Patient seen and examined in the intensive care unit. Case discussed with house staff in the morning rounds. Remains intubated on ventilatory support No change in mental status For tracheostomy once stable CT angiogram for persistent tachycardia Continue present treatment
[2017-09-11] MEDS ORDERED: Iodixanol 320 MG/ML 100 ML BOTTLE IV ONE (17:05)
[2017-09-11] MEDS ORDERED: HYDROmorphone 0.5 mg/0.5 ml ISec IVP STA (17:32)
--- NOTE | 2017-09-11 18:11 | CT ---
PROCEDURE: CT Chest with contrast (Pulmonary Angiogram) HISTORY: tachycardia, elevated D Dimer COMPARISON: None available. TECHNIQUE: Axial computed tomography images were obtained of the chest in the pulmonary arterial phase of enhancement. Coronal and sagittal reformatted images were created and reviewed. Intravenous contrast dose: 100 cc of Visipaque Radiation dose: Total exam DLP = 555 mGy-cm. This CT exam was performed using one or more of the following dose reduction techniques: Automated exposure control, adjustment of the mA and/or kV according to patient size, and/or use of iterative reconstruction technique. FINDINGS: PULMONARY ARTERIES: Unremarkable. No pulmonary embolism. AORTA: No acute findings. No thoracic aortic aneurysm. LUNGS: There is dense consolidation at the left lung base and to a lesser extent the right lung base. PLEURAL SPACES: Unremarkable. No effusion or pneuomothorax. HEART: Unremarkable. No cardiomegaly. No significant pericardial effusion. LYMPH NODES: No lymphadenopathy. BONES, CHEST WALL: Unremarkable. No fracture or destructive lesion OTHER FINDINGS: There is fatty infiltration of liver. Pancreatic pseudocysts are seen. The findings are seen on the recent abdominal CT. A nasogastric tube is present IMPRESSION: No evidence of pulmonary embolus. Bibasilar consolidation. Upper lobe interstitial infiltrates
--- NOTE | 2017-09-11 23:13 | PN ---
DATE: 09/11/2017 SUBJECTIVE: The patient was seen and examined at bedside. This morning, the patient's mental status remains the same, remains intubated. PHYSICAL EXAMINATION VITAL SIGNS: Blood pressure is 98/67, pulse 131, respiration 21, temperature 98.4 degrees Fahrenheit and O2 saturation 100% on 40% FiO2 on mechanical ventilation, Tidal volume 450, set rate 14, PEEP of 5. HEENT: Pupils are sluggishly reacting to light. ET tube and gastric tube in the oral cavity. There is no icterus. Positive pallor. NECK: Supple. LUNGS: Bilateral vesicular breath sounds. Bilateral basal crackles. CARDIOVASCULAR: S1 and S2 present, regular, tachycardic. ABDOMEN: Soft. Bowel sounds present. CENTRAL NERVOUS SYSTEM: Sedated, unresponsive, remains intubated. EXTREMITIES: No edema. MEDICATIONS: Include, Artificial Tears, Keppra 1 g IV q.12 hours, Lopressor 25 mg p.o. b.i.d., Versed 2 mg IV q.6 p.r.n., Protonix 40 mg IV push daily, Diprivan, thiamine, K-Dur 20 mEq p.o. daily and Neutra-Phos 1 pack q.6 hours. LABORATORY DATA: From this morning, WBC 15.4, hemoglobin 8.1, hematocrit 24.5 and platelets 285. D-dimer is 991. ABG on 40% FiO2, pH 7.49, pCO2 of 34 and pO2 of 181. Sodium 137, potassium 3.1, chloride 100, bicarbonate 27, BUN 7, creatinine 0.3, glucose 98, magnesium 1.5, total bilirubin 1.6, AST 52, ALT 39, alkaline phosphatase is 167, total protein 6.[address] of the chest, no evidence of pulmonary embolism, bibasilar consolidation, upper lobe interstitial infiltrate. ASSESSMENT AND PLAN: A young female with history of alcohol abuse, substance abuse, back problems status post surgery, wheelchair bound, admitted for status post cardiac arrest, multiple electrolyte abnormalities, ventilator-dependent respiratory failure, sinus tachycardia, anoxic encephalopathy, hypokalemia status post supplementation of potassium chloride and magnesium sulfate. Repeat labs from a.m. Mental status remains the same, ventilator-dependent. Continue with gastrointestinal and deep venous thrombosis prophylaxis. Awaiting for the patient's family to decide on terminal DO NOT RESUSCITATE and terminal extubation. Discussed with palliative care and awaiting for medical ethics consult from Dr. Miranda. Phoenix Caballero MD
[2017-09-12] MEDS: Propofol 10 mg/ml 1,000 MG/100 ML VIAL IV PRN ×4 (00:25→17:53)
[2017-09-12] MEDS: Potassium & Sodium Phosphate NG SCH ×2 (05:01→11:07)
[2017-09-12 06:08] LABS: ABG ALLEN TEST POS; ABG MECHANICAL RATE 10; ARTERIAL BLOOD GAS MODE PRVC; ARTERIAL BLOOD HGB O2 SAT 96.1 % (95.0-98.0); ATERIAL BLOOD GAS PEEP 5; CARBOXYHEMOGLOBIN 1.9 % (0.5-1.5); DRAW SITE LR; HHB 0.4 % (0.0-5.0); METHEMOGLOBIN 1.6 % (0.0-3.0)
[2017-09-12 06:38] LABS: BASO # 0.1 K/uL (0.0-0.2); BASO % 0.5 % (0.0-2.0); EOS # 0.2 K/uL (0.0-0.7); EOS % 1.6 % (0.0-4.0); HEMATOCRIT 22.5 % (34.0-47.0); LYMPH # 1.7 K/uL (1.0-4.3); LYMPH % 12.8 % (20.0-40.0); MEAN CELL VOLUME 89.7 fL (81.0-99.0); MEAN CORPUSCULAR HEMOGLOBIN 28.9 pg (27.0-31.0); MEAN CORPUSCULAR HGB CONC 32.3 g/dL (33.0-37.0); MEAN PLATELET VOLUME 7.8 fL (7.2-11.7); MONO # 0.8 K/uL (0.0-0.8); MONO % 5.8 % (0.0-10.0); NRBC % 0.1 % (0.0-2.0); RED CELL DISTRIBUTION WIDTH 15.6 % (11.5-14.5); WHITE BLOOD COUNT 13.2 K/uL (4.8-10.8)
[2017-09-12 06:48] LABS: CHLORIDE 99 mmol/L (98-107); POTASSIUM 3.2 mmol/L (3.6-5.2); SODIUM 132 mmol/L (132-148)
[2017-09-12 06:50] LABS: ALB/GLOB RATIO 0.6 (1.0-2.1); ALKALINE PHOSPHATASE 153 U/L (38-126); AST/SGOT 48 U/L (14-36); BILIRUBIN,TOTAL 1.5 mg/dL (0.2-1.3); CARBON DIOXIDE 26 mmol/L (22-30); GFR AFRICAN-AMERICAN > 60; TOTAL PROTEIN 6.5 g/dL (6.3-8.3)
[2017-09-12 06:51] LABS: ALT/SGPT 39 U/L (9-52); BLOOD UREA NITROGEN 5 mg/dL (7-17); CALCIUM 8.9 mg/dl (8.6-10.4); GLUCOSE,RANDOM 85 mg/dL (65-105); MAGNESIUM 1.5 mg/dL (1.6-2.3); PHOSPHOROUS 4.2 mg/dL (2.5-4.5)
--- NOTE | 2017-09-12 09:27 | RAD ---
HISTORY: intubated COMPARISON: 09/11/2017 FINDINGS: LUNGS: No active pulmonary disease. PLEURA: No significant pleural effusion identified, no pneumothorax apparent. CARDIOVASCULAR: ET tube, NG tube and right IJ triple-lumen central venous catheter are unchanged. OSSEOUS STRUCTURES: No significant abnormalities. VISUALIZED UPPER ABDOMEN: Normal. OTHER FINDINGS: None. IMPRESSION: No acute infiltrate. Lines and tubes unchanged.
[2017-09-12] MEDS: Magnesium Sulfate 1 gm in D5W 1 GM/100 ML BAG IVPB SCH ×2 (09:58→11:05)
--- NOTE | 2017-09-12 10:06 | PN ---
DATE: 09/12/2017 SUBJECTIVE: Anoxic encephalopathy, status epilepticus. PHYSICAL EXAMINATION: VITAL SIGNS: Blood pressure 106/70, mean arterial pressure 79, respiratory rate 18, temperature afebrile with 116 pulse rate. NEUROLOGIC: The patient is comatose. Eyes closed partially opening eyelid. Cornea is dry. No pupillary reflex. Disconjugate gaze. Quadriplegic and areflexic. Plantars are mute. No clinical seizures have been seen on exam. Rest of the examination is unchanged. Continue the present management. If family wishes to continue the present management, the patient should be benefited with the PEG and tracheostomy. Emory Pugh MD MTDD
[2017-09-12] MEDS: Thiamine 100 mg/ml Inj IV SCH (10:17)
[2017-09-12] MEDS: Potassium Chloride 20 mEq/15 ml LIQ UD PO SCH (10:22)
--- NOTE | 2017-09-12 10:27 | CP.PCM.PN ---
Subjective - Date & Time of Evaluation Date of Evaluation: 09/12/17 Time of Evaluation: 10:24 - Subjective Subjective: Patient examined in bed. ROS not obtained from patient due to clinical; status. Objective - Vital Signs/Intake and Output Vital Signs (last 24 hours): Temp Pulse Resp BP Pulse Ox 98.2 F 118 H 19 105/72 100 09/12/17 08:00 09/12/17 09:00 09/12/17 09:00 09/12/17 10:17 09/12/17 09:00 Intake and Output: 09/12/17 09/12/17 06:59 18:59 Intake Total 720 65 Output Total 920 290 Balance -200 -225 - Medications Medications: Current Medications Artificial Tears (Lacri-Lube) 1 gm OS Q6H PRN PRN Reason: Sedation Last Admin: 09/06/17 20:10 Dose: 1 gm Propofol (Diprivan) 1,000 mg in 100 mls @ 2.3 mls/hr IV .Q24H PRN; Protocol; 5 MCG/KG/MIN PRN Reason: TITRATE PER MD ORDER Last Admin: 09/12/17 06:06 Dose: 32.61 mcg/kg/min, 14.999 mls/hr Levetiracetam 1,000 mg/ (Dextrose) 110 mls @ 440 mls/hr IVPB Q12H [facility] Last Admin: 09/12/17 05:00 Dose: 440 mls/hr Potassium Chloride 20 meq/ (Dextrose) 110 mls @ 50 mls/hr IV ONCE ONE Stop: 09/12/17 12:11 Last Admin: 09/12/17 10:19 Dose: 50 mls/hr Potassium Chloride 20 meq/ (Dextrose) 110 mls @ 50 mls/hr IV ONCE ONE Stop: 09/12/17 14:11 Magnesium Sulfate/Dextrose (Magnesium Sulfate 1 Gm/100 Ml D5w) 1 gm in 100 mls @ 100 mls/hr IVPB Q1H [facility] Stop: 09/12/17 11:59 Last Admin: 09/12/17 09:58 Dose: 100 mls/hr Metoprolol Tartrate (Lopressor) 25 mg PO BID [facility] Last Admin: 09/12/17 10:17 Dose: 25 mg Midazolam HCl (Versed Inj) 2 mg IVP Q6H PRN PRN Reason: Seizure activity Last Admin: 09/10/17 22:26 Dose: 2 mg Pantoprazole Sodium (Protonix Inj) 40 mg IVP DAILY [facility] Last Admin: 09/12/17 10:17 Dose: 40 mg Potassium Chloride (Potassium Chloride Oral Soln) 20 meq PO DAILY [facility] Last Admin: 09/12/17 10:22 Dose: 20 meq Potassium Phos/Sodium Phos (Neutra-Phos) 1 pkt NG Q6 [facility] Last Admin: 09/12/17 05:01 Dose: Not Given Thiamine HCl (Vitamin B1 Inj) 100 mg IV DAILY [facility] Last Admin: 09/12/17 10: Dose: 100 mg - Labs Labs: 09/12/17 06:30 09/12/17 06:30 PT 14.4 SECONDS (9.7-12.2) H 08/30/17 19:30 INR 1.3 08/30/17 19:30 APTT 28 SECONDS (21-34) 08/30/17 19:30 - Constitutional Appears: In Acute Distress - Head Exam Head Exam: ATRAUMATIC, NORMAL INSPECTION, NORMOCEPHALIC - Eye Exam Pupil Exam: Irregular - ENT Exam Additional comments: ETT - Neck Exam Neck Exam: Normal Inspection - Respiratory Exam Respiratory Exam: Accessory Muscle Use, Decreased Breath Sounds Additional comments: On MV support - Cardiovascular Exam Cardiovascular Exam: Tachycardia - GI/Abdominal Exam GI & Abdominal Exam: Hypoactive Bowel Sounds - Rectal Exam Rectal Exam: Deferred - Extremities Exam Extremities Exam: Full ROM, Normal Capillary Refill, Normal Inspection - Back Exam Back Exam: CVA tenderness (L) - Neurological Exam Neurological Exam: Motor Sensory Deficit Neuro motor strength exam: Left Upper Extremity: 0, Right Upper Extremity: 0, Left Lower Extremity: 0, Right Lower Extremity: 0 - Psychiatric Exam Psychiatric exam: Flat Affect - Skin Skin Exam: Dry, Intact, Pallor Assessment and Plan - Assessment and Plan (Free Text) Assessment: Patient seen and examined in bed. Remains unresponsive to verbal and tactile stimuli. Hb dropped to 7.3, blood transfusion pending. WBC 13.2, afebrile, HR 122 Sinus tach. K3.2 and is being replaced. BP 105/72. I was asked by Doctor Abrahan to revisit the goals of care discussion with the family, as the family had decided on trach and PEG procedure. I spoke over the phone with daughter Holland yesterday who said was coming to meet with me. However, the daughter did not come until late afternoon, and I was gone for the day. This morning I spoke to her again. I reviewed her mother's current clinical condition suggesting the high HR and low Hb and elicited her feelings and expectations . The daughter came forward very strongly indicating that she would want all aggressive interventions to be applied to keep her mother alive. I reassured her of all available medical treatment being applied at present , despite which , unfortunately her mother's condition has not change. I further jordon concerns regarding quality of life issues. The daughter remained firm in her decision saying that " she was not ready to give up on her mother'. I discussed this with Doctor Walters and ICU team. I also shared this with Doctor Gauthier. Doctor Walters advised to precede with blood transfusions and hopefully with OR if condition gets stable. From discussion with daughter I got impression that patient's mother was not aware of the decision Holland made, and in my 2nd phone call this morning I was able to get the patient's mother phone # [phone]. Unfortunately she was not available over the phone at this time. Impression * Patient remains on full life support unresponsive to any stimuli * patient was not stable for PEG and trach procedure as planned * Patient's 17 yo daughter Holland is strongly advocating for the aggressive approach despite lost quality of life and meaningful recovery not being expected. * It is important to note that Holland was not raised by the patient, who is her biologic mother, but by the other lady that she calls " mom" as well. Seems to me that there is so much grief involved on side of daughter, what prevents her to make right decision. She still needs her mother, regardless of circumstances and that is what leads her toward the decision she made Suggestion * With respect to daughter's wishes, we will need to proceed with planned procedures when patient stable enough * I would also fallow up with Doctor Miranda's suggestions regarding the legality aspect ; is the 17 yo daughter legally accepted to make this kind of decisions
--- NOTE | 2017-09-12 12:02 | CP.PCM.PN ---
Subjective - Date & Time of Evaluation Date of Evaluation: 09/12/17 Time of Evaluation: 11:50 - Subjective Subjective: Progress note dictated # [id number] Objective - Vital Signs/Intake and Output Vital Signs (last 24 hours): Temp Pulse Resp BP Pulse Ox 98.2 F 109 H 21 103/74 100 09/12/17 08:00 09/12/17 11:00 09/12/17 11:00 09/12/17 11:00 09/12/17 11:00 Intake and Output: 09/12/17 09/12/17 06:59 18:59 Intake Total 720 495 Output Total 920 465 Balance -200 30 - Medications Medications: Current Medications Artificial Tears (Lacri-Lube) 1 gm OS Q6H PRN PRN Reason: Sedation Last Admin: 09/06/17 20:10 Dose: 1 gm Propofol (Diprivan) 1,000 mg in 100 mls @ 2.3 mls/hr IV .Q24H PRN; Protocol; 5 MCG/KG/MIN PRN Reason: TITRATE PER MD ORDER Last Admin: 09/12/17 06:06 Dose: 32.61 mcg/kg/min, 14.999 mls/hr Levetiracetam 1,000 mg/ (Dextrose) 110 mls @ 440 mls/hr IVPB Q12H [facility] Last Admin: 09/12/17 05:00 Dose: 440 mls/hr Potassium Chloride 20 meq/ (Dextrose) 110 mls @ 50 mls/hr IV ONCE ONE Stop: 09/12/17 12:11 Last Admin: 09/12/17 10:19 Dose: 50 mls/hr Potassium Chloride 20 meq/ (Dextrose) 110 mls @ 50 mls/hr IV ONCE ONE Stop: 09/12/17 14:11 Last Admin: 09/12/17 11:21 Dose: 50 mls/hr Metoprolol Tartrate (Lopressor) 25 mg PO BID [facility] Last Admin: 09/12/17 10:17 Dose: 25 mg Midazolam HCl (Versed Inj) 2 mg IVP Q6H PRN PRN Reason: Seizure activity Last Admin: 09/10/17 22:26 Dose: 2 mg Pantoprazole Sodium (Protonix Inj) 40 mg IVP DAILY [facility] Last Admin: 09/12/17 10:17 Dose: 40 mg Potassium Chloride (Potassium Chloride Oral Soln) 20 meq PO DAILY [facility] Last Admin: 09/12/17 10:22 Dose: 20 meq Thiamine HCl (Vitamin B1 Inj) 100 mg IV DAILY [facility] Last Admin: 09/12/17 10:17 Dose: 100 mg - Labs Labs: 09/12/17 06:30 09/12/17 06:30 PT 14.4 SECONDS (9.7-12.2) H 08/30/17 19:30 INR 1.3 08/30/17 19:30 APTT 28 SECONDS (21-34) 08/30/17 19:30
--- NOTE | 2017-09-12 15:03 | CP.CCUPN ---
<Liset Massey - Last Filed: 09/12/17 17:14> CCU Subjective - Physician Review Subjective (Free Text): Patient seen and examined at bedside. Patient currently intubated. ROS unobtainable due to patient's current clinical status. CCU Objective - Vital Signs / Intake & Output Vital Signs (Last 4 hours): Vital Signs Temp Pulse Resp BP Pulse Ox 09/12/17 14:28 112 H 18 100/68 100 09/12/17 14:23 99.8 F H 110 H 22 100/68 09/12/17 14:13 110 H 20 103/71 99 09/12/17 14:00 111 H 24 98 09/12/17 13:58 113 H 22 102/68 97 09/12/17 13:43 107 H 21 106/72 100 09/12/17 13:32 99.2 F 112 H 22 106/72 09/12/17 13:28 108 H 22 105/74 100 09/12/17 13:13 106 H 17 100/69 100 09/12/17 13:02 99.0 F 105 H 22 100/69 09/12/17 13:00 106 H 22 100 09/12/17 12:58 105 H 20 104/70 100 09/12/17 12:47 99.0 F 106 H 22 104/70 09/12/17 12:43 106 H 23 98/67 L 100 09/12/17 12:42 106 H 18 100 09/12/17 12:32 99.2 F 105 H 20 97/67 L 09/12/17 12:00 99.2 F 104 H 19 97/67 L 100 09/12/17 11:00 109 H 21 103/74 100 Intake and Output (Last 8hrs): Intake & Output 09/11/17 09/12/17 09/12/17 22:59 06:59 14:59 Intake Total 480 580 965 Output Total 760 560 915 Balance -280 20 50 Intake: IV 100 200 100 Intake, IV Amount 220 220 520 Right Distal Port 100 200 Internal Jugular Right Internal Jugular 100 Right Medial Port 120 120 120 Internal Jugular Right Proximal Port 200 Internal Jugular Tube Feeding 160 160 20 Blood Product 325 Red Blood Cells Cpd As1 325 Lr Unit [id number] Red Blood Cells Cpd As1 0 Lr Unit [id number] Output: Urine 710 560 795 Urethral (Andino) 710 560 795 Stool 50 120 - Physical Exam Head: Positive for: Atraumatic, Normocephalic Pupils: Positive for: Sluggish Extroacular Muscles: Negative for: EOMI Mouth: Positive for: Moist Mucous Membranes Respiratory/Chest: Positive for: Good Air Exchange, Other (intubated ) Cardiovascular: Positive for: Normal S1, S2, Tachycardic Abdomen: Positive for: Normal Bowel Sounds. Negative for: Distention Upper Extremity: Negative for: Edema Lower Extremity: Negative for: Edema Neurological: Negative for: GCS=15, Speech Normal Skin: Positive for: Normal Color Psychiatric: Negative for: Alert, Oriented x 3 - Medications Active Medications: Active Medications Generic Name Dose Route Start Last Admin Trade Name Freq PRN Reason Stop Dose Admin Artificial Tears 1 gm 08/31/17 12:00 09/06/17 20:10 Lacri-Lube OS 1 gm Q6H PRN Administration Sedation Propofol 1,000 mg in 100 mls @ 2.3 mls/hr 09/05/17 15:59 09/12/17 12:41 Diprivan IV 32.61 mcg/kg/min .Q24H PRN 14.999 mls/hr TITRATE PER MD ORDER Administration Protocol 5 MCG/KG/MIN Levetiracetam 1,000 mg/ 110 mls @ 440 mls/hr 09/10/17 06:00 09/12/17 05:00 Dextrose IVPB 440 mls/hr Q12H EUSEBIO Administration Metoprolol Tartrate 25 mg 09/08/17 19:30 09/12/17 10:17 Lopressor PO 25 mg BID EUSEBIO Administration Midazolam HCl 2 mg 09/10/17 10:52 09/10/17 22:26 Versed Inj IVP 2 mg Q6H PRN Administration Seizure activity Pantoprazole Sodium 40 mg 08/31/17 10:00 09/12/17 10:17 Protonix Inj IVP 40 mg DAILY EUSEBIO Administration Potassium Chloride 20 meq 09/10/17 14:00 09/12/17 10:22 Potassium Chloride Oral Soln PO 20 meq DAILY EUSEBIO Administration Thiamine HCl 100 mg 08/30/17 22:15 09/12/17 10:17 Vitamin B1 Inj IV 100 mg DAILY EUSEBIO Administration - Patient Studies Lab Studies: Microbiology Studies 10/31/17 10:02 Gram Stain - Final Trachasp Lab Studies 09/12/17 09/12/17 09/12/17 Range/Units 08:51 06:30 06:30 WBC 13.2 H (4.8-10.8) K/uL RBC 2.51 L (3.80-5.20) Mil/uL Hgb 7.3 L (11.0-16.0) g/dL Hct 22.5 L (34.0-47.0) % MCV 89.7 (81.0-99.0) fL MCH 28.9 (27.0-31.0) pg MCHC 32.3 L (33.0-37.0) g/dL RDW 15.6 H (11.5-14.5) % Plt Count 311 (130-400) K/uL MPV 7.8 (7.2-11.7) fL Neut % (Auto) 79.3 H (50.0-75.0) % Lymph % (Auto) 12.8 L (20.0-40.0) % Dare % (Auto) 5.8 (0.0-10.0) % Eos % (Auto) 1.6 (0.0-4.0) % Baso % (Auto) 0.5 (0.0-2.0) % Neut # 10.5 H (1.8-7.0) K/uL Lymph # 1.7 (1.0-4.3) K/uL Dare # 0.8 (0.0-0.8) K/uL Eos # 0.2 (0.0-0.7) K/uL Baso # 0.1 (0.0-0.2) K/uL Puncture Site pCO2 (35-45) mm/Hg pO2 (80-100) mm/Hg HCO3 (21-28) mmol/L ABG pH (7.35-7.45) ABG Total CO2 (22-28) mmol/L ABG O2 Saturation (95-98) % ABG Base Excess (-2.0-3.0) mmol/L ABG Hemoglobin (11.7-17.4) g/dL ABG Carboxyhemoglobin (0.5-1.5) % POC ABG HHb (Measured) (0.0-5.0) % ABG Methemoglobin (0.0-3.0) % Stephen Test A-a O2 Difference mm/Hg Respiratory Index Hgb O2 Saturation (95.0-98.0) % Vent Mode Mechanical Rate FiO2 % Tidal Volume PEEP Sodium 132 (132-148) mmol/L Potassium 3.2 L (3.6-5.2) mmol/L Chloride 99 (98-107) mmol/L Carbon Dioxide 26 (22-30) mmol/L Anion Gap 10 (10-20) BUN 5 L (7-17) mg/dL Creatinine 0.3 L (0.7-1.2) mg/dL Est GFR ( Amer) > 60 Est GFR (Non-Af Amer) > 60 POC Glucose (mg/dL) (65-110) mg/dL Random Glucose 85 (65-105) mg/dL Calcium 8.9 (8.6-10.4) mg/dl Phosphorus 4.2 (2.5-4.5) mg/dL Magnesium 1.5 L (1.6-2.3) mg/dL Total Bilirubin 1.5 H (0.2-1.3) mg/dL AST 48 H (14-36) U/L ALT 39 (9-52) U/L Alkaline Phosphatase 153 H (38-126) U/L Total Protein 6.5 (6.3-8.3) g/dL Albumin 2.5 L (3.5-5.0) g/dL Globulin 3.9 (2.2-3.9) gm/dL Albumin/Globulin Ratio 0.6 L (1.0-2.1) Blood Type O POSITIVE Antibody Screen Negative 09/12/17 09/12/17 Range/Units 04:56 01:06 WBC (4.8-10.8) K/uL RBC (3.80-5.20) Mil/uL Hgb (11.0-16.0) g/dL Hct (34.0-47.0) % MCV (81.0-99.0) fL MCH (27.0-31.0) pg MCHC (33.0-37.0) g/dL RDW (11.5-14.5) % Plt Count (130-400) K/uL MPV (7.2-11.7) fL Neut % (Auto) (50.0-75.0) % Lymph % (Auto) (20.0-40.0) % Dare % (Auto) (0.0-10.0) % Eos % (Auto) (0.0-4.0) % Baso % (Auto) (0.0-2.0) % Neut # (1.8-7.0) K/uL Lymph # (1.0-4.3) K/uL Dare # (0.0-0.8) K/uL Eos # (0.0-0.7) K/uL Baso # (0.0-0.2) K/uL Puncture Site Lr pCO2 35 (35-45) mm/Hg pO2 159 H (80-100) mm/Hg HCO3 28.0 (21-28) mmol/L ABG pH 7.50 H (7.35-7.45) ABG Total CO2 28.4 H (22-28) mmol/L ABG O2 Saturation 99.6 H (95-98) % ABG Base Excess 3.9 H (-2.0-3.0) mmol/L ABG Hemoglobin 7.7 L (11.7-17.4) g/dL ABG Carboxyhemoglobin 1.9 H (0.5-1.5) % POC ABG HHb (Measured) 0.4 (0.0-5.0) % ABG Methemoglobin 1.6 (0.0-3.0) % Stephen Test Pos A-a O2 Difference 82.0 mm/Hg Respiratory Index 0.5 Hgb O2 Saturation 96.1 (95.0-98.0) % Vent Mode Prvc Mechanical Rate 10 FiO2 40.0 % Tidal Volume 450 PEEP 5 Sodium (132-148) mmol/L Potassium (3.6-5.2) mmol/L Chloride (98-107) mmol/L Carbon Dioxide (22-30) mmol/L Anion Gap (10-20) BUN (7-17) mg/dL Creatinine (0.7-1.2) mg/dL Est GFR ( Amer) Est GFR (Non-Af Amer) POC Glucose (mg/dL) 83 (65-110) mg/dL Random Glucose (65-105) mg/dL Calcium (8.6-10.4) mg/dl Phosphorus (2.5-4.5) mg/dL Magnesium (1.6-2.3) mg/dL Total Bilirubin (0.2-1.3) mg/dL AST (14-36) U/L ALT (9-52) U/L Alkaline Phosphatase (38-126) U/L Total Protein (6.3-8.3) g/dL Albumin (3.5-5.0) g/dL Globulin (2.2-3.9) gm/dL Albumin/Globulin Ratio (1.0-2.1) Blood Type Antibody Screen Laboratory Results - last 24 hr 09/12/17 09/12/17 09/12/17 01:06 04:56 06:30 WBC 13.2 H RBC 2.51 L Hgb 7.3 L Hct 22.5 L MCV 89.7 MCH 28.9 MCHC 32.3 L RDW 15.6 H Plt Count 311 MPV 7.8 Neut % (Auto) 79.3 H Lymph % (Auto) 12.8 L Dare % (Auto) 5.8 Eos % (Auto) 1.6 Baso % (Auto) 0.5 Neut # 10.5 H Lymph # 1.7 Dare # 0.8 Eos # 0.2 Baso # 0.1 Puncture Site Lr pCO2 35 pO2 159 H HCO3 28.0 ABG pH 7.50 H ABG Total CO2 28.4 H ABG O2 Saturation 99.6 H ABG Base Excess 3.9 H ABG Hemoglobin 7.7 L ABG Carboxyhemoglobin 1.9 H POC ABG HHb (Measured) 0.4 ABG Methemoglobin 1.6 Stephen Test Pos A-a O2 Difference 82.0 Respiratory Index 0.5 Hgb O2 Saturation 96.1 Vent Mode Prvc Mechanical Rate 10 FiO2 40.0 Tidal Volume 450 PEEP 5 Sodium Potassium Chloride Carbon Dioxide Anion Gap BUN Creatinine Est GFR ( Amer) Est GFR (Non-Af Amer) POC Glucose (mg/dL) 83 Random Glucose Calcium Phosphorus Magnesium Total Bilirubin AST ALT Alkaline Phosphatase Total Protein Albumin Globulin Albumin/Globulin Ratio Blood Type Antibody Screen 09/12/17 09/12/17 06:30 08:51 WBC RBC Hgb Hct MCV MCH MCHC RDW Plt Count MPV Neut % (Auto) Lymph % (Auto) Dare % (Auto) Eos % (Auto) Baso % (Auto) Neut # Lymph # Dare # Eos # Baso # Puncture Site pCO2 pO2 HCO3 ABG pH ABG Total CO2 ABG O2 Saturation ABG Base Excess ABG Hemoglobin ABG Carboxyhemoglobin POC ABG HHb (Measured) ABG Methemoglobin Stehpen Test A-a O2 Difference Respiratory Index Hgb O2 Saturation Vent Mode Mechanical Rate FiO2 Tidal Volume PEEP Sodium 132 Potassium 3.2 L Chloride 99 Carbon Dioxide 26 Anion Gap 10 BUN 5 L Creatinine 0.3 L Est GFR ( Amer) > 60 Est GFR (Non-Af Amer) > 60 POC Glucose (mg/dL) Random Glucose 85 Calcium 8.9 Phosphorus 4.2 Magnesium 1.5 L Total Bilirubin 1.5 H AST 48 H ALT 39 Alkaline Phosphatase 153 H Total Protein 6.5 Albumin 2.5 L Globulin 3.9 Albumin/Globulin Ratio 0.6 L Blood Type O POSITIVE Antibody Screen Negative Fingerstick Blood Sugar Results: 123 Review of Systems - Review of Systems Systems not reviewed;Unavailable: Intubated Critical Care Progress Note - Nutrition Nutrition: Nutrition Category Date Time Status NPO Diet [DIET] Diets 09/10/17 Breakfast Active Assessment/Plan - Assessment and Plan (Free Text) Assessment: 36 year old female with past medical history of anemia and alcohol abuse, who was found unconscious by . EMS was called and patient was found to be in Asystole, ACLS protocol was initiated and 2 rounds of epinephrine and then ROSC. Patient was unconscious in the ED. Subsequently, patient was admitted to the ICU and hypothermia protocol was initiated. Plan: Neuro: Intubated, Acute seizures Neurologist, Dr. Pugh---> help appreciated * Management as per recommendation Medication/Management: * Keppra 500mg IV Q12H * Versed PRN * Propofol (Titratable) Imaging: * EEG (08/31/17): globally abnormal EEG because of persistent spike and wave activities consistent with status epilepticus. Please correlate the findings with neurological and radiological studies * Cerebral blood flow (09/03/17): does not conform to nuclear medicine diagnosis of brain . There is a faint cerebral flow, the study is considered technically suboptimal for reasons related to technique and poor visualization of carotid arteries. * CT head w/o contrast (09/03/17): No mass effect or edema. No atrophy or chronic microvascular. * EEG (09/06): status epilepticus * F/U head CT (09/12/17): Cardio: Cardiopulmonary Arrest Management: * Intubated * Hypothermia protocol was initiated Pulm: Respiratory distress secondary to cardiac arrest Management: * Intubated * sputum culture: MRSA * Zosyn 3.375 gm q6h * D Dimer: [id number] * CTA: no evidence of PE, bibasilar consolidation. Upper lobe interstitial infiltrates. * Dr. Dockery consulted for trach evaluation,trach rescheduled for tomorrow due to low hemoglobin GI: Diarrhea * C. Dif negative Renal: Electrolyte imbalance Nephrology, Dr. Ramos---> Help appreciated * Management as per recommendation * Potassium and Magnesium repleted * KCl 20mEq daily Heme: anemia * H/H: dropped to 7.3/22.5 from 8.1/24.5 * patient to be transfused 2 u PRBCs * f/u CBC ID: * sputum culture: MRSA * Zosyn Psych: Alcohol abuse disorder * Thiamine 100mg IV daily * Psychiatric consult once patient is clinically stable Prophylaxis measures: * R IJ in place * DVT: SCDs, Heparin 5,000units SC Q12H * GI: Protonix 40mg IV daily * tube feeds: jevity 20cc/hr <Burton Walters S - Last Filed: 09/12/17 17:36> CCU Objective - Vital Signs / Intake & Output Vital Signs (Last 4 hours): Vital Signs Temp Pulse Resp BP Pulse Ox 09/12/17 16:43 116 H 20 116/90 99 09/12/17 16:28 117 H 24 115/86 99 09/12/17 16:13 111 H 16 114/78 100 09/12/17 16:00 98.4 F 113 H 20 100 09/12/17 15:58 114 H 23 104/72 100 09/12/17 15:43 112 H 21 110/72 99 09/12/17 15:28 99.3 F 111 H 19 108/72 99 09/12/17 15:13 111 H 19 103/65 98 09/12/17 15:00 111 H 20 99 09/12/17 14:58 99.3 F 111 H 15 101/69 100 09/12/17 14:43 99.3 F 110 H 20 105/70 98 09/12/17 14:28 99.5 F 112 H 18 100/68 100 09/12/17 14:23 99.8 F H 110 H 22 100/68 09/12/17 14:13 110 H 20 103/71 99 09/12/17 14:00 111 H 24 98 09/12/17 13:58 113 H 22 102/68 97 09/12/17 13:43 107 H 21 106/72 100 Intake and Output (Last 8hrs): Intake & Output 09/12/17 09/12/17 09/12/17 06:59 14:59 22:59 Intake Total 580 965 355 Output Total 560 915 325 Balance 20 50 30 Intake: IV 200 100 Intake, IV Amount 220 520 30 Right Distal Port 200 Internal Jugular Right Internal Jugular 100 Right Medial Port 120 120 30 Internal Jugular Right Proximal Port 200 Internal Jugular Tube Feeding 160 20 Blood Product 325 325 Red Blood Cells Cpd As1 325 Lr Unit [id number] Red Blood Cells Cpd As1 0 325 Lr Unit [id number] Output: Urine 560 795 325 Urethral (Andino) 560 795 325 Stool 120 - Medications Active Medications: Active Medications Generic Name Dose Route Start Last Admin Trade Name Freq PRN Reason Stop Dose Admin Artificial Tears 1 gm 08/31/17 12:00 09/06/17 20:10 Lacri-Lube OS 1 gm Q6H PRN Administration Sedation Propofol 1,000 mg in 100 mls @ 2.3 mls/hr 09/05/17 15:59 09/12/17 12:41 Diprivan IV 32.61 mcg/kg/min .Q24H PRN 14.999 mls/hr TITRATE PER MD ORDER Administration Protocol 5 MCG/KG/MIN Levetiracetam 1,000 mg/ 110 mls @ 440 mls/hr 09/10/17 06:00 09/12/17 05:00 Dextrose IVPB 440 mls/hr Q12H EUSEBIO Administration Metoprolol Tartrate 25 mg 09/08/17 19:30 09/12/17 10:17 Lopressor PO 25 mg BID EUSEBIO Administration Midazolam HCl 2 mg 09/10/17 10:52 09/10/17 22:26 Versed Inj IVP 2 mg Q6H PRN Administration Seizure activity Pantoprazole Sodium 40 mg 08/31/17 10:00 09/12/17 10:17 Protonix Inj IVP 40 mg DAILY EUSEBIO Administration Potassium Chloride 20 meq 09/10/17 14:00 09/12/17 10:22 Potassium Chloride Oral Soln PO 20 meq DAILY EUSEBIO Administration Thiamine HCl 100 mg 08/30/17 22:15 09/12/17 10:17 Vitamin B1 Inj IV 100 mg DAILY EUSEBIO Administration - Patient Studies Lab Studies: Microbiology Studies 09/11/17 10:02 Gram Stain - Final Trachasp Lab Studies 09/12/17 09/12/17 09/12/17 Range/Units 08:51 06:30 06:30 WBC 13.2 H (4.8-10.8) K/uL RBC 2.51 L (3.80-5.20) Mil/uL Hgb 7.3 L (11.0-16.0) g/dL Hct 22.5 L (34.0-47.0) % MCV 89.7 (81.0-99.0) fL MCH 28.9 (27.0-31.0) pg MCHC 32.3 L (33.0-37.0) g/dL RDW 15.6 H (11.5-14.5) % Plt Count 311 (130-400) K/uL MPV 7.8 (7.2-11.7) fL Neut % (Auto) 79.3 H (50.0-75.0) % Lymph % (Auto) 12.8 L (20.0-40.0) % Dare % (Auto) 5.8 (0.0-10.0) % Eos % (Auto) 1.6 (0.0-4.0) % Baso % (Auto) 0.5 (0.0-2.0) % Neut # 10.5 H (1.8-7.0) K/uL Lymph # 1.7 (1.0-4.3) K/uL Dare # 0.8 (0.0-0.8) K/uL Eos # 0.2 (0.0-0.7) K/uL Baso # 0.1 (0.0-0.2) K/uL Puncture Site pCO2 (35-45) mm/Hg pO2 (80-100) mm/Hg HCO3 (21-28) mmol/L ABG pH (7.35-7.45) ABG Total CO2 (22-28) mmol/L ABG O2 Saturation (95-98) % ABG Base Excess (-2.0-3.0) mmol/L ABG Hemoglobin (11.7-17.4) g/dL ABG Carboxyhemoglobin (0.5-1.5) % POC ABG HHb (Measured) (0.0-5.0) % ABG Methemoglobin (0.0-3.0) % Stephen Test A-a O2 Difference mm/Hg Respiratory Index Hgb O2 Saturation (95.0-98.0) % Vent Mode Mechanical Rate FiO2 % Tidal Volume PEEP Sodium 132 (132-148) mmol/L Potassium 3.2 L (3.6-5.2) mmol/L Chloride 99 (98-107) mmol/L Carbon Dioxide 26 (22-30) mmol/L Anion Gap 10 (10-20) BUN 5 L (7-17) mg/dL Creatinine 0.3 L (0.7-1.2) mg/dL Est GFR ( Amer) > 60 Est GFR (Non-Af Amer) > 60 POC Glucose (mg/dL) (65-110) mg/dL Random Glucose 85 (65-105) mg/dL Calcium 8.9 (8.6-10.4) mg/dl Phosphorus 4.2 (2.5-4.5) mg/dL Magnesium 1.5 L (1.6-2.3) mg/dL Total Bilirubin 1.5 H (0.2-1.3) mg/dL AST 48 H (14-36) U/L ALT 39 (9-52) U/L Alkaline Phosphatase 153 H (38-126) U/L Total Protein 6.5 (6.3-8.3) g/dL Albumin 2.5 L (3.5-5.0) g/dL Globulin 3.9 (2.2-3.9) gm/dL Albumin/Globulin Ratio 0.6 L (1.0-2.1) Blood Type O POSITIVE Antibody Screen Negative 09/12/17 09/12/17 Range/Units 04:56 01:06 WBC (4.8-10.8) K/uL RBC (3.80-5.20) Mil/uL Hgb (11.0-16.0) g/dL Hct (34.0-47.0) % MCV (81.0-99.0) fL MCH (27.0-31.0) pg MCHC (33.0-37.0) g/dL RDW (11.5-14.5) % Plt Count (130-400) K/uL MPV (7.2-11.7) fL Neut % (Auto) (50.0-75.0) % Lymph % (Auto) (20.0-40.0) % Dare % (Auto) (0.0-10.0) % Eos % (Auto) (0.0-4.0) % Baso % (Auto) (0.0-2.0) % Neut # (1.8-7.0) K/uL Lymph # (1.0-4.3) K/uL Dare # (0.0-0.8) K/uL Eos # (0.0-0.7) K/uL Baso # (0.0-0.2) K/uL Puncture Site Lr pCO2 35 (35-45) mm/Hg pO2 159 H (80-100) mm/Hg HCO3 28.0 (21-28) mmol/L ABG pH 7.50 H (7.35-7.45) ABG Total CO2 28.4 H (22-28) mmol/L ABG O2 Saturation 99.6 H (95-98) % ABG Base Excess 3.9 H (-2.0-3.0) mmol/L ABG Hemoglobin 7.7 L (11.7-17.4) g/dL ABG Carboxyhemoglobin 1.9 H (0.5-1.5) % POC ABG HHb (Measured) 0.4 (0.0-5.0) % ABG Methemoglobin 1.6 (0.0-3.0) % Stephen Test Pos A-a O2 Difference 82.0 mm/Hg Respiratory Index 0.5 Hgb O2 Saturation 96.1 (95.0-98.0) % Vent Mode Prvc Mechanical Rate 10 FiO2 40.0 % Tidal Volume 450 PEEP 5 Sodium (132-148) mmol/L Potassium (3.6-5.2) mmol/L Chloride (98-107) mmol/L Carbon Dioxide (22-30) mmol/L Anion Gap (10-20) BUN (7-17) mg/dL Creatinine (0.7-1.2) mg/dL Est GFR ( Amer) Est GFR (Non-Af Amer) POC Glucose (mg/dL) 83 (65-110) mg/dL Random Glucose (65-105) mg/dL Calcium (8.6-10.4) mg/dl Phosphorus (2.5-4.5) mg/dL Magnesium (1.6-2.3) mg/dL Total Bilirubin (0.2-1.3) mg/dL AST (14-36) U/L ALT (9-52) U/L Alkaline Phosphatase (38-126) U/L Total Protein (6.3-8.3) g/dL Albumin (3.5-5.0) g/dL Globulin (2.2-3.9) gm/dL Albumin/Globulin Ratio (1.0-2.1) Blood Type Antibody Screen Laboratory Results - last 24 hr 09/12/17 09/12/17 09/12/17 01:06 04:56 06:30 WBC 13.2 H RBC 2.51 L Hgb 7.3 L Hct 22.5 L MCV 89.7 MCH 28.9 MCHC 32.3 L RDW 15.6 H Plt Count 311 MPV 7.8 Neut % (Auto) 79.3 H Lymph % (Auto) 12.8 L Dare % (Auto) 5.8 Eos % (Auto) 1.6 Baso % (Auto) 0.5 Neut # 10.5 H Lymph # 1.7 Dare # 0.8 Eos # 0.2 Baso # 0.1 Puncture Site Lr pCO2 35 pO2 159 H HCO3 28.0 ABG pH 7.50 H ABG Total CO2 28.4 H ABG O2 Saturation 99.6 H ABG Base Excess 3.9 H ABG Hemoglobin 7.7 L ABG Carboxyhemoglobin 1.9 H POC ABG HHb (Measured) 0.4 ABG Methemoglobin 1.6 Stephen Test Pos A-a O2 Difference 82.0 Respiratory Index 0.5 Hgb O2 Saturation 96.1 Vent Mode Prvc Mechanical Rate 10 FiO2 40.0 Tidal Volume 450 PEEP 5 Sodium Potassium Chloride Carbon Dioxide Anion Gap BUN Creatinine Est GFR ( Amer) Est GFR (Non-Af Amer) POC Glucose (mg/dL) 83 Random Glucose Calcium Phosphorus Magnesium Total Bilirubin AST ALT Alkaline Phosphatase Total Protein Albumin Globulin Albumin/Globulin Ratio Blood Type Antibody Screen 09/12/17 09/12/17 06:30 08:51 WBC RBC Hgb Hct MCV MCH MCHC RDW Plt Count MPV Neut % (Auto) Lymph % (Auto) Dare % (Auto) Eos % (Auto) Baso % (Auto) Neut # Lymph # Dare # Eos # Baso # Puncture Site pCO2 pO2 HCO3 ABG pH ABG Total CO2 ABG O2 Saturation ABG Base Excess ABG Hemoglobin ABG Carboxyhemoglobin POC ABG HHb (Measured) ABG Methemoglobin Stephen Test A-a O2 Difference Respiratory Index Hgb O2 Saturation Vent Mode Mechanical Rate FiO2 Tidal Volume PEEP Sodium 132 Potassium 3.2 L Chloride 99 Carbon Dioxide 26 Anion Gap 10 BUN 5 L Creatinine 0.3 L Est GFR ( Amer) > 60 Est GFR (Non-Af Amer) > 60 POC Glucose (mg/dL) Random Glucose 85 Calcium 8.9 Phosphorus 4.2 Magnesium 1.5 L Total Bilirubin 1.5 H AST 48 H ALT 39 Alkaline Phosphatase 153 H Total Protein 6.5 Albumin 2.5 L Globulin 3.9 Albumin/Globulin Ratio 0.6 L Blood Type O POSITIVE Antibody Screen Negative Critical Care Progress Note - Nutrition Nutrition: Nutrition Category Date Time Status NPO Diet [DIET] Diets 09/10/17 Breakfast Active Attending/Attestation - Attestation I have personally seen and examined this patient.: Yes I have fully participated in the care of the patient.: Yes I have reviewed all pertinent clinical information: Yes Notes (Text): 09/12/17 17:36 Patient seen and examined. Case discussed with house staff in the morning. No change in mental status Continue ventilatory support Possible tracheostomy tomorrow Transfuse 1 unit packed RBCs No active bleeding noted
--- NOTE | 2017-09-12 16:49 | CP.PCM.PCO ---
Physician Communication Note - Physician Communication Note Physician Communication Note: Trach rescheduled for tomorrow
--- NOTE | 2017-09-12 17:51 | CT ---
PROCEDURE: CT HEAD WITHOUT CONTRAST. HISTORY: ANOXIA COMPARISON: Noncontrast head CT from 09/08/2017 TECHNIQUE: Axial computed tomography images were obtained through the head/brain without intravenous contrast. Radiation dose: Total exam DLP = 1377.26 mGy-cm. This CT exam was performed using one or more of the following dose reduction techniques: Automated exposure control, adjustment of the mA and/or kV according to patient size, and/or use of iterative reconstruction technique. FINDINGS: HEMORRHAGE: No intracranial hemorrhage. BRAIN: [place]-white matter differentiation is preserved. There is asymmetric low attenuation in the left basal ganglia. There is no mass, mass effect or abnormal extra-axial fluid collection. VENTRICLES: There is mild global parenchymal volume loss and proportionate enlargement of the ventricles and cortical sulci. CALVARIUM: Unremarkable. PARANASAL SINUSES: There is fluid in the sphenoid sinus and posterior ethmoid air cells, expected finding in an intubated patient. MASTOID AIR CELLS: There are bilateral mastoid effusions, expected finding in an intubated patient. OTHER FINDINGS: None. IMPRESSION: Asymmetric low attenuation in the left basal ganglia could represent anoxic injury. Please note an MRI of the brain without contrast is a more sensitive modality for evaluation of hypoxic ischemic insult. Mild global parenchymal volume loss, advanced for the patient's age.
[2017-09-12 18:43] LABS: BASO # 0.1 K/uL (0.0-0.2); BASO % 0.7 % (0.0-2.0); EOS # 0.2 K/uL (0.0-0.7); EOS % 1.7 % (0.0-4.0); HEMATOCRIT 30.1 % (34.0-47.0); LYMPH # 1.4 K/uL (1.0-4.3); LYMPH % 10.2 % (20.0-40.0); MEAN CELL VOLUME 89.2 fL (81.0-99.0); MEAN CORPUSCULAR HEMOGLOBIN 29.5 pg (27.0-31.0); MEAN CORPUSCULAR HGB CONC 33.1 g/dL (33.0-37.0); MEAN PLATELET VOLUME 7.4 fL (7.2-11.7); MONO # 0.8 K/uL (0.0-0.8); RED CELL DISTRIBUTION WIDTH 14.8 % (11.5-14.5); WHITE BLOOD COUNT 14.2 K/uL (4.8-10.8)
--- NOTE | 2017-09-12 21:42 | PN ---
DATE: 09/12/2017 SUBJECTIVE: The patient was seen and examined at bedside. No change in her mental status, remains intubated, vent dependent, remains in sinus tachycardia. PHYSICAL EXAMINATION: VITAL SIGNS: Blood pressure 108/76, temperature 98.4 degrees Fahrenheit, O2 saturation 100% on 40% FiO2 with tidal volume 450, set rate of 14 and PEEP of 5 and respiratory rate 20. Intake is 1910 mL and output is 1770 mL. HEENT: Pupils are sluggishly reacting to light. No icterus. Positive pallor. ET tubes and gastric tube in the oral cavity. NECK: Supple. LUNGS: Bilateral vesicular breath sounds. Bilateral basal crackles heard. CARDIOVASCULAR: S1 and S2 present, regular, tachycardic. ABDOMEN: Soft. Bowel sounds present. CENTRAL NERVOUS SYSTEM: Sedated, intubated and unresponsive. Not responding to verbal or the painful stimuli, but intermittent involuntary movements of the eyelids noted. EXTREMITIES: No edema. MEDICATIONS: Include artificial tears, Keppra 1 g IV q. 12 hours, Lopressor 25 mg p.o. b.i.d., Versed 2 mg IV push q. 6 hours p.r.n., Protonix 40 mg IV daily, potassium chloride 20 mEq p.o. daily, propofol and thiamine. LABORATORY DATA: From this morning, WBC 14.2, hemoglobin 7.3, hematocrit 22.5 and platelets 311. Sodium 132, potassium 3.2, chloride 99, bicarb 26, BUN 5, creatinine 0.3,glucose 85, calcium 8.9, phosphorous 4.2 and magnesium 1.5. Total bilirubin 1.5, AST 48, ALT 39, alkaline phosphatase 153. ASSESSMENT AND PLAN: Young female with history of ethanol abuse, substance abuse, back problems status post surgeries, wheelchair bound, admitted status post cardiac arrest with ventilator-dependent respiratory failure, anoxic encephalopathy, multiple electrolyte abnormalities with seizures. Mental status remains the same, remains intubated on ventilatory support at 40% FiO2. Received packed red blood cells today with improved hemoglobin to 10. Continue with gastrointestinal and deep venous thrombosis prophylaxis. The patient is rescheduled for possible tracheostomy and percutaneous endoscopic gastrostomy replacement in a.m. Discussed with palliative care registered nurse, who discussed with the patient's daughter about the patient's critical condition. The patient's daughter who is 19-year-old. As per records, wants everything to be done for her mother, unable to contact the patient's mother who is the next of kin regarding the DO NOT RESUSCITATE status and terminal extubation as per palliative care. The patient's family at this time wants everything to be done. Requested ethics consult, awaiting for their input. As per the patient's family wishes, we will continue with current management and supportive care. The patient is for possible trach in a.m. Electrolytes have been replaced. Repeat electrolytes in a.m. Continue with other current therapy. Continue with ventilatory support. Continue with multiple antiseizure medications. We will add further recommendation as her clinical course progresses. The patient's overall medical condition is critical and prognosis is guarded. Discussed with case management and registered nurse. Phoenix Caballero MD
[2017-09-13] MEDS: Propofol 10 mg/ml 1,000 MG/100 ML VIAL IV PRN ×3 (01:22→16:38)
[2017-09-13 05:54] LABS: BASO # 0.1 K/uL (0.0-0.2); BASO % 0.6 % (0.0-2.0); EOS # 0.2 K/uL (0.0-0.7); EOS % 1.7 % (0.0-4.0); HEMATOCRIT 30.6 % (34.0-47.0); LYMPH # 1.6 K/uL (1.0-4.3); LYMPH % 11.2 % (20.0-40.0); MEAN CELL VOLUME 89.8 fL (81.0-99.0); MEAN CORPUSCULAR HGB CONC 33.4 g/dL (33.0-37.0); MEAN PLATELET VOLUME 7.9 fL (7.2-11.7); MONO # 0.8 K/uL (0.0-0.8); MONO % 5.6 % (0.0-10.0); NRBC % 0.1 % (0.0-2.0); RED CELL DISTRIBUTION WIDTH 14.7 % (11.5-14.5); WHITE BLOOD COUNT 13.9 K/uL (4.8-10.8)
[2017-09-13 05:56] LABS: ABG ALLEN TEST POS; ABG MECHANICAL RATE 10; ARTERIAL BLOOD GAS MODE PRVC; ARTERIAL BLOOD HGB O2 SAT 96.1 % (95.0-98.0); ATERIAL BLOOD GAS PEEP 5; CARBOXYHEMOGLOBIN 2.3 % (0.5-1.5); DRAW SITE RR; HHB 0.3 % (0.0-5.0); METHEMOGLOBIN 1.3 % (0.0-3.0)
[2017-09-13 06:55] LABS: CHLORIDE 98 mmol/L (98-107); POTASSIUM 3.1 mmol/L (3.6-5.2); SODIUM 132 mmol/L (132-148)
[2017-09-13 06:57] LABS: ALB/GLOB RATIO 0.7 (1.0-2.1); ALKALINE PHOSPHATASE 166 U/L (38-126); AST/SGOT 54 U/L (14-36); BILIRUBIN,TOTAL 1.8 mg/dL (0.2-1.3); CARBON DIOXIDE 26 mmol/L (22-30); GFR AFRICAN-AMERICAN > 60; TOTAL PROTEIN 7.2 g/dL (6.3-8.3)
[2017-09-13 06:58] LABS: ALT/SGPT 35 U/L (9-52); BLOOD UREA NITROGEN 6 mg/dL (7-17); CALCIUM 9.5 mg/dl (8.6-10.4); GLUCOSE,RANDOM 80 mg/dL (65-105); MAGNESIUM 1.6 mg/dL (1.6-2.3); PHOSPHOROUS 4.3 mg/dL (2.5-4.5)
[2017-09-13] MEDS ORDERED: Potassium Chloride 20 mEq/15 ml LIQ UD PO ONE (08:00)
--- NOTE | 2017-09-13 08:41 | RAD ---
Chest x-ray single frontal view History: Intubated. Comparison: 09/12/2017 Findings: Lines and tubes in stable position. Mild venous congestion. Patchy increased markings at the left lung base with small left pleural effusion. Additional mild patchy increased markings in the right hilar region extending to the right lung base. Some mild patchy nodular consolidative changes at the left lung apex. Heart size within normal limits. Degenerative changes in the spine. Impression: Mild venous congestion. Patchy increased markings at the left lung base with small left pleural effusion. Additional mild patchy increased markings in the right hilar region extending to the right lung base. Some mild patchy nodular consolidative changes at the left lung apex.
[2017-09-13] MEDS: Thiamine 100 mg/ml Inj IV SCH (09:17)
[2017-09-13] MEDS ORDERED: Magnesium Sulfate 1 gm in D5W 1 GM/100 ML BAG IVPB ONE (11:02)
--- NOTE | 2017-09-13 11:04 | CP.PCM.PN ---
Subjective - Date & Time of Evaluation Date of Evaluation: 09/13/17 Time of Evaluation: 10:50 - Subjective Subjective: Progress note dictated #[id number] Objective - Vital Signs/Intake and Output Vital Signs (last 24 hours): Temp Pulse Resp BP Pulse Ox 99.3 F 115 H 20 119/62 98 09/13/17 08:00 09/13/17 10:00 09/13/17 10:00 09/13/17 09:47 09/13/17 10:00 Intake and Output: 09/13/17 09/13/17 06:59 18:59 Intake Total 515 155 Output Total 1210 335 Balance -695 -180 - Medications Medications: Current Medications Artificial Tears (Lacri-Lube) 1 gm OS Q6H PRN PRN Reason: Sedation Last Admin: 09/06/17 20:10 Dose: 1 gm Propofol (Diprivan) 1,000 mg in 100 mls @ 2.3 mls/hr IV .Q24H PRN; Protocol; 5 MCG/KG/MIN PRN Reason: TITRATE PER MD ORDER Last Admin: 09/13/17 01:22 Dose: 32.61 mcg/kg/min, 14.999 mls/hr Levetiracetam 1,000 mg/ (Dextrose) 110 mls @ 440 mls/hr IVPB Q12H [facility] Last Admin: 09/13/17 05:24 Dose: 440 mls/hr Potassium Chloride 40 meq/ (Sodium Chloride) 270 mls @ 67.5 mls/hr IV ONCE ONE Stop: 09/13/17 12:29 Last Admin: 09/13/17 08:23 Dose: 67.5 mls/hr Magnesium Sulfate/Dextrose (Magnesium Sulfate 1 Gm/100 Ml D5w) 1 gm in 100 mls @ 200 mls/hr IVPB ONCE ONE Stop: 09/13/17 11:31 Metoprolol Tartrate (Lopressor) 25 mg PO BID [facility] Last Admin: 09/13/17 09:24 Dose: Not Given Midazolam HCl (Versed Inj) 2 mg IVP Q6H PRN PRN Reason: Seizure activity Last Admin: 09/10/17 22:26 Dose: 2 mg Pantoprazole Sodium (Protonix Inj) 40 mg IVP DAILY [facility] Last Admin: 09/13/17 09:17 Dose: 40 mg Thiamine HCl (Vitamin B1 Inj) 100 mg IV DAILY [facility] Last Admin: 09/13/17 09:17 Dose: 100 mg - Labs Labs: 09/13/17 05:04 09/13/17 05:43 PT 14.4 SECONDS (9.7-12.2) H 08/30/17 19:30 INR 1.3 08/30/17 19:30 APTT 28 SECONDS (21-34) 08/30/17 19:30
[2017-09-13] MEDS ORDERED: Bupivacaine-Epi 0.25%-1:200,000 PF Inj ONE (11:20)
[2017-09-13] MEDS ORDERED: Lidocaine 1% Inj (20ml) ONE (11:20)
[2017-09-13] MEDS ORDERED: ceFAZolin IV 2 gm in Dextrose 0 GM/0 ML BAG IVPB ONE (11:20)
[2017-09-13] MEDS ORDERED: Metoprolol 1 mg/ml Inj IVP ONE ×3 (12:24→12:37)
--- NOTE | 2017-09-13 17:03 | PN ---
DATE: 09/13/2017 SUBJECTIVE: The patient is seen and examined at bedside. The patient is remaining intubated, sedated. No change in her mental status. Involuntary jerky movements of the eyelids and upper and lower extremities noted. PHYSICAL EXAMINATION: VITAL SIGNS: Blood pressure 107/71; pulse 112; respiration 20; afebrile, temperature 99.3 degrees Fahrenheit; O2 sats 99% on 40% FiO2 with tidal volume 450, set rate 10, and PEEP of 5; respiratory rate is 18 to 22. Intake was 2145, output is 2625. HEENT: Pupils sluggishly reacting to light. No icterus. Positive pallor. ET tube and gastric tube in the oral cavity. NECK: Supple. No JVD. CARDIOVASCULAR: S1 and S2 present, tachycardic. LUNGS: Bilateral vesicular breath sounds. Bilateral basal crackles. ABDOMEN: Soft. Bowel sounds present. CENTRAL NERVOUS SYSTEM: Sedated, intubated, having involuntary movements of the upper and lower extremities and involuntary movements of the eyelids. Not responding to deep painful stimuli or verbal stimuli. EXTREMITIES: No edema. LABORATORY DATA: From this morning, WBC 13.9, hemoglobin 10.2, hematocrit 30.6, platelets 310. ABG on 40% FiO2; pH 7.45, pCO2 of 38, pO2 of 146, O2 sats 99%. Sodium 132, potassium 3.1, chloride 98, bicarb 26, BUN 6, creatinine 0.3, glucose 80, calcium 9.5, phosphorus 1.3, magnesium 1.6. Total bilirubin 1.8, AST 54, ALT 35, alkaline phosphatase 166, total protein 7.2, albumin 2.9. Urine beta hCG negative. MEDICATIONS: To include artificial tears, Keppra 1 g q. 12 hours, Lopressor 25 mg p.o. q. 8 hours, Versed 2 mg IV q. 6 hours, Protonix 40 mg IV push daily, Diprivan 5 mcg/kg/minute, and thiamine 100 mg IV daily. ASSESSMENT AND PLAN: Young female with alcohol abuse, substance abuse, chronic back problems status post surgery, wheelchair bound, admitted status post cardiac arrest with multiple electrolyte abnormalities, ventilator-dependent respiratory failure, sinus bradycardia, anoxic encephalopathy with seizures, hypokalemia, hypomagnesemia. We will continue with supportive care. Neuro status remains the same, now on multiple anti-seizure medications. Continue with vent support. O2 sats are acceptable at 40% FiO2. Continue with gastrointestinal and deep venous thrombosis. For possible tracheostomy and percutaneous endoscopic gastrostomy placement today. Discussed with case management and RN. The patient's family decided to continue with aggressive care. We will continue with supportive care as per patient's family's wishes. We will add further recommendation as her clinical course progresses. Her condition is critical and prognosis is guarded. Phoenix Caballero MD
--- NOTE | 2017-09-13 18:51 | CP.CCUPN ---
<Liset Massey - Last Filed: 09/13/17 18:45> CCU Subjective - Physician Review Subjective (Free Text): Patient seen and examined at bedside. Patient currently intubated. ROS unobtainable due to patient's current clinical status. CCU Objective - Vital Signs / Intake & Output Vital Signs (Last 4 hours): Vital Signs Temp Pulse Resp BP Pulse Ox 09/13/17 17:00 112 H 18 100 09/13/17 16:47 114 H 20 103/65 99 09/13/17 16:00 98.4 F 115 H 19 96 09/13/17 15:47 119 H 21 108/65 95 09/13/17 15:18 102/67 09/13/17 15:00 120 H 19 97 09/13/17 14:47 121 H 18 102/67 95 Intake and Output (Last 8hrs): Intake & Output 09/13/17 09/13/17 09/13/17 06:59 14:59 22:59 Intake Total 340 315 370 Output Total 790 620 250 Balance -450 -305 120 Weight 169 lb 4.8 oz Intake: IV 100 100 100 Intake, IV Amount 220 215 160 Right Distal Port 120 75 60 Internal Jugular Right Medial Port 100 140 100 Internal Jugular Tube Feeding 20 0 110 Output: Urine 640 620 250 Urethral (Andino) 640 620 250 Stool 150 - Physical Exam Head: Positive for: Atraumatic, Normocephalic Pupils: Positive for: Sluggish Extroacular Muscles: Negative for: EOMI Mouth: Positive for: Moist Mucous Membranes Respiratory/Chest: Positive for: Good Air Exchange, Other (intubated ) Cardiovascular: Positive for: Normal S1, S2, Tachycardic Abdomen: Positive for: Normal Bowel Sounds. Negative for: Distention Upper Extremity: Negative for: Edema Lower Extremity: Negative for: Edema Neurological: Negative for: GCS=15, Speech Normal Skin: Positive for: Normal Color Psychiatric: Negative for: Alert, Oriented x 3 - Medications Active Medications: Active Medications Generic Name Dose Route Start Last Admin Trade Name Freq PRN Reason Stop Dose Admin Artificial Tears 1 gm 08/31/17 12:00 09/06/17 20:10 Lacri-Lube OS 1 gm Q6H PRN Administration Sedation Propofol 1,000 mg in 100 mls @ 2.3 mls/hr 09/05/17 15:59 11/02/17 16:38 Diprivan IV 32.61 mcg/kg/min .Q24H PRN 14.999 mls/hr TITRATE PER MD ORDER Administration Protocol 5 MCG/KG/MIN Levetiracetam 1,000 mg/ 110 mls @ 440 mls/hr 09/10/17 06:00 09/13/17 17:13 Dextrose IVPB 440 mls/hr Q12H EUSEBIO Administration Metoprolol Tartrate 25 mg 09/13/17 13:00 09/13/17 15:18 Lopressor PO 25 mg Q8H EUSEBIO Administration Midazolam HCl 2 mg 09/10/17 10:52 09/10/17 22:26 Versed Inj IVP 2 mg Q6H PRN Administration Seizure activity Pantoprazole Sodium 40 mg 08/31/17 10:00 09/13/17 09:17 Protonix Inj IVP 40 mg DAILY EUSEBIO Administration Thiamine HCl 100 mg 08/30/17 22:15 09/13/17 09:17 Vitamin B1 Inj IV 100 mg DAILY EUSEBIO Administration - Patient Studies Lab Studies: Microbiology Studies 09/12/17 18:00 Blood Culture - Preliminary Blood-Venous NO GROWTH AFTER 24 HOURS 09/12/17 18:00 Blood Culture - Preliminary Blood-Venous NO GROWTH AFTER 24 HOURS 09/11/17 10:02 Gram Stain - Final Trachasp Sputum Culture - Final Staphylococcus Aureus Lab Studies 09/13/17 09/13/17 09/13/17 Range/Units 10:44 05:51 05:43 WBC (4.8-10.8) K/uL RBC (3.80-5.20) Mil/uL Hgb (11.0-16.0) g/dL Hct (34.0-47.0) % MCV (81.0-99.0) fL MCH (27.0-31.0) pg MCHC (33.0-37.0) g/dL RDW (11.5-14.5) % Plt Count (130-400) K/uL MPV (7.2-11.7) fL Neut % (Auto) (50.0-75.0) % Lymph % (Auto) (20.0-40.0) % [place] % (Auto) (0.0-10.0) % Eos % (Auto) (0.0-4.0) % Baso % (Auto) (0.0-2.0) % Neut # (1.8-7.0) K/uL Lymph # (1.0-4.3) K/uL [place] # (0.0-0.8) K/uL Eos # (0.0-0.7) K/uL Baso # (0.0-0.2) K/uL Puncture Site Rr pCO2 38 (35-45) mm/Hg pO2 146 H (80-100) mm/Hg HCO3 26.8 (21-28) mmol/L ABG pH 7.45 (7.35-7.45) ABG Total CO2 27.6 (22-28) mmol/L ABG O2 Saturation 99.7 H (95-98) % ABG Base Excess 2.4 (-2.0-3.0) mmol/L ABG Hemoglobin 13.7 (11.7-17.4) g/dL ABG Carboxyhemoglobin 2.3 H (0.5-1.5) % POC ABG HHb (Measured) 0.3 (0.0-5.0) % ABG Methemoglobin 1.3 (0.0-3.0) % Stephen Test Pos A-a O2 Difference 92.0 mm/Hg Respiratory Index 0.6 Hgb O2 Saturation 96.1 (95.0-98.0) % Vent Mode Prvc Mechanical Rate 10 FiO2 40.0 % Tidal Volume 450 PEEP 5 Sodium 132 (132-148) mmol/L Potassium 3.1 L (3.6-5.2) mmol/L Chloride 98 (98-107) mmol/L Carbon Dioxide 26 (22-30) mmol/L Anion Gap 11 (10-20) BUN 6 L (7-17) mg/dL Creatinine 0.3 L (0.7-1.2) mg/dL Est GFR ( Amer) > 60 Est GFR (Non-Af Amer) > 60 Random Glucose 80 (65-105) mg/dL Calcium 9.5 (8.6-10.4) mg/dl Phosphorus 4.3 (2.5-4.5) mg/dL Magnesium 1.6 (1.6-2.3) mg/dL Total Bilirubin 1.8 H (0.2-1.3) mg/dL AST 54 H (14-36) U/L ALT 35 (9-52) U/L Alkaline Phosphatase 166 H (38-126) U/L Total Protein 7.2 (6.3-8.3) g/dL Albumin 2.9 L (3.5-5.0) g/dL Globulin 4.3 H (2.2-3.9) gm/dL Albumin/Globulin Ratio 0.7 L (1.0-2.1) Urine HCG, Qual Negative (NEGATIVE) 09/13/17 09/12/17 Range/Units 05:04 18:39 WBC 13.9 H 14.2 H (4.8-10.8) K/uL RBC 3.41 L 3.37 L (3.80-5.20) Mil/uL Hgb 10.2 L 10.0 L D (11.0-16.0) g/dL Hct 30.6 L 30.1 L (34.0-47.0) % MCV 89.8 89.2 (81.0-99.0) fL MCH 30.0 29.5 (27.0-31.0) pg MCHC 33.4 33.1 (33.0-37.0) g/dL RDW 14.7 H 14.8 H (11.5-14.5) % Plt Count 310 310 (130-400) K/uL MPV 7.9 7.4 (7.2-11.7) fL Neut % (Auto) 80.9 H 81.4 H (50.0-75.0) % Lymph % (Auto) 11.2 L 10.2 L (20.0-40.0) % [place] % (Auto) 5.6 6.0 (0.0-10.0) % Eos % (Auto) 1.7 1.7 (0.0-4.0) % Baso % (Auto) 0.6 0.7 (0.0-2.0) % Neut # 11.3 H 11.5 H (1.8-7.0) K/uL Lymph # 1.6 1.4 (1.0-4.3) K/uL [place] # 0.8 0.8 (0.0-0.8) K/uL Eos # 0.2 0.2 (0.0-0.7) K/uL Baso # 0.1 0.1 (0.0-0.2) K/uL Puncture Site pCO2 (35-45) mm/Hg pO2 (80-100) mm/Hg HCO3 (21-28) mmol/L ABG pH (7.35-7.45) ABG Total CO2 (22-28) mmol/L ABG O2 Saturation (95-98) % ABG Base Excess (-2.0-3.0) mmol/L ABG Hemoglobin (11.7-17.4) g/dL ABG Carboxyhemoglobin (0.5-1.5) % POC ABG HHb (Measured) (0.0-5.0) % ABG Methemoglobin (0.0-3.0) % Stephen Test A-a O2 Difference mm/Hg Respiratory Index Hgb O2 Saturation (95.0-98.0) % Vent Mode Mechanical Rate FiO2 % Tidal Volume PEEP Sodium (132-148) mmol/L Potassium (3.6-5.2) mmol/L Chloride (98-107) mmol/L Carbon Dioxide (22-30) mmol/L Anion Gap (10-20) BUN (7-17) mg/dL Creatinine (0.7-1.2) mg/dL Est GFR ( Amer) Est GFR (Non-Af Amer) Random Glucose (65-105) mg/dL Calcium (8.6-10.4) mg/dl Phosphorus (2.5-4.5) mg/dL Magnesium (1.6-2.3) mg/dL Total Bilirubin (0.2-1.3) mg/dL AST (14-36) U/L ALT (9-52) U/L Alkaline Phosphatase (38-126) U/L Total Protein (6.3-8.3) g/dL Albumin (3.5-5.0) g/dL Globulin (2.2-3.9) gm/dL Albumin/Globulin Ratio (1.0-2.1) Urine HCG, Qual (NEGATIVE) Laboratory Results - last 24 hr 09/12/17 09/13/17 09/13/17 18:39 05:04 05:43 WBC 14.2 H 13.9 H RBC 3.37 L 3.41 L Hgb 10.0 L D 10.2 L Hct 30.1 L 30.6 L MCV 89.2 89.8 MCH 29.5 30.0 MCHC 33.1 33.4 RDW 14.8 H 14.7 H Plt Count 310 310 MPV 7.4 7.9 Neut % (Auto) 81.4 H 80.9 H Lymph % (Auto) 10.2 L 11.2 L [place] % (Auto) 6.0 5.6 Eos % (Auto) 1.7 1.7 Baso % (Auto) 0.7 0.6 Neut # 11.5 H 11.3 H Lymph # 1.4 1.6 [place] # 0.8 0.8 Eos # 0.2 0.2 Baso # 0.1 0.1 Puncture Site pCO2 pO2 HCO3 ABG pH ABG Total CO2 ABG O2 Saturation ABG Base Excess ABG Hemoglobin ABG Carboxyhemoglobin POC ABG HHb (Measured) ABG Methemoglobin Stephen Test A-a O2 Difference Respiratory Index Hgb O2 Saturation Vent Mode Mechanical Rate FiO2 Tidal Volume PEEP Sodium 132 Potassium 3.1 L Chloride 98 Carbon Dioxide 26 Anion Gap 11 BUN 6 L Creatinine 0.3 L Est GFR ( Amer) > 60 Est GFR (Non-Af Amer) > 60 Random Glucose 80 Calcium 9.5 Phosphorus 4.3 Magnesium 1.6 Total Bilirubin 1.8 H AST 54 H ALT 35 Alkaline Phosphatase 166 H Total Protein 7.2 Albumin 2.9 L Globulin 4.3 H Albumin/Globulin Ratio 0.7 L Urine HCG, Qual 09/13/17 09/13/17 05:51 10:44 WBC RBC Hgb Hct MCV MCH MCHC RDW Plt Count MPV Neut % (Auto) Lymph % (Auto) [place] % (Auto) Eos % (Auto) Baso % (Auto) Neut # Lymph # [place] # Eos # Baso # Puncture Site Rr pCO2 38 pO2 146 H HCO3 26.8 ABG pH 7.45 ABG Total CO2 27.6 ABG O2 Saturation 99.7 H ABG Base Excess 2.4 ABG Hemoglobin 13.7 ABG Carboxyhemoglobin 2.3 H POC ABG HHb (Measured) 0.3 ABG Methemoglobin 1.3 Stephen Test Pos A-a O2 Difference 92.0 Respiratory Index 0.6 Hgb O2 Saturation 96.1 Vent Mode Prvc Mechanical Rate 10 FiO2 40.0 Tidal Volume 450 PEEP 5 Sodium Potassium Chloride Carbon Dioxide Anion Gap BUN Creatinine Est GFR ( Amer) Est GFR (Non-Af Amer) Random Glucose Calcium Phosphorus Magnesium Total Bilirubin AST ALT Alkaline Phosphatase Total Protein Albumin Globulin Albumin/Globulin Ratio Urine HCG, Qual Negative Fingerstick Blood Sugar Results: 123 Review of Systems - Review of Systems Systems not reviewed;Unavailable: Intubated Critical Care Progress Note - Nutrition Nutrition: Nutrition Category Date Time Status NPO Diet [DIET] Diets 09/10/17 Breakfast Active Assessment/Plan - Assessment and Plan (Free Text) Assessment: 36 year old female with past medical history of anemia and alcohol abuse, who was found unconscious by . EMS was called and patient was found to be in Asystole, ACLS protocol was initiated and 2 rounds of epinephrine and then ROSC. Patient was unconscious in the ED. Subsequently, patient was admitted to the ICU and hypothermia protocol was initiated. Plan: Neuro: Intubated, Acute seizures Neurologist, Dr. Pugh---> help appreciated * Management as per recommendation Medication/Management: * Keppra 500mg IV Q12H * Versed PRN * Propofol (Titratable) Imaging: * EEG (08/31/17): globally abnormal EEG because of persistent spike and wave activities consistent with status epilepticus. Please correlate the findings with neurological and radiological studies * Cerebral blood flow (09/03/17): does not conform to nuclear medicine diagnosis of brain . There is a faint cerebral flow, the study is considered technically suboptimal for reasons related to technique and poor visualization of carotid arteries. * CT head w/o contrast (09/03/17): No mass effect or edema. No atrophy or chronic microvascular. * EEG (09/06): status epilepticus * F/U head CT (09/12/17): assymetric low attenuation in the L basal ganglia could represent anoxic injury. Mild global parenchymal volume loss, advanced for the patient's age. Cardio: Cardiopulmonary Arrest Management: * Intubated * Hypothermia protocol was initiated Pulm: Respiratory distress secondary to cardiac arrest Management: * Intubated * sputum culture: MRSA * Zosyn 3.375 gm q6h * D Dimer: [id number] * CTA: no evidence of PE, bibasilar consolidation. Upper lobe interstitial infiltrates. * Dr. Dockery consulted for trach evaluation, trach rescheduled for tomorrow due to tachycardia GI: Diarrhea * C. Dif negative * PEG placement by Dr. Dockery for tomorrow Renal: Electrolyte imbalance Nephrology, Dr. Ramos---> Help appreciated * Management as per recommendation * Potassium and Magnesium repleted * KCl 20mEq daily Heme: anemia * H/H: dropped to 7.3/22.5 from 8.1/24.5 * patient to be transfused 2 u PRBCs * f/u CBC ID: * sputum culture: MRSA * Zosyn Psych: Alcohol abuse disorder * Thiamine 100mg IV daily * Psychiatric consult once patient is clinically stable Prophylaxis measures: * R IJ in place * DVT: SCDs, Heparin 5,000units SC Q12H * GI: Protonix 40mg IV daily * tube feeds: jevity 20cc/hr <Silas Fischer M - Last Filed: 09/13/17 19:04> CCU Objective - Vital Signs / Intake & Output Vital Signs (Last 4 hours): Vital Signs Temp Pulse Resp BP Pulse Ox 09/13/17 17:00 112 H 18 100 09/13/17 16:47 114 H 20 103/65 99 09/13/17 16:00 98.4 F 115 H 19 96 09/13/17 15:47 119 H 21 108/65 95 09/13/17 15:18 102/67 09/13/17 15:00 120 H 19 97 Intake and Output (Last 8hrs): Intake & Output 09/13/17 09/13/17 09/13/17 06:59 14:59 22:59 Intake Total 340 315 370 Output Total 790 620 250 Balance -450 -305 120 Weight 169 lb 4.8 oz Intake: IV 100 100 100 Intake, IV Amount 220 215 160 Right Distal Port 120 75 60 Internal Jugular Right Medial Port 100 140 100 Internal Jugular Tube Feeding 20 0 110 Output: Urine 640 620 250 Urethral (Andino) 640 620 250 Stool 150 - Medications Active Medications: Active Medications Generic Name Dose Route Start Last Admin Trade Name Freq PRN Reason Stop Dose Admin Artificial Tears 1 gm 08/31/17 12:00 09/06/17 20:10 Lacri-Lube OS 1 gm Q6H PRN Administration Sedation Propofol 1,000 mg in 100 mls @ 2.3 mls/hr 09/05/17 15:59 09/13/17 16:38 Diprivan IV 32.61 mcg/kg/min .Q24H PRN 14.999 mls/hr TITRATE PER MD ORDER Administration Protocol 5 MCG/KG/MIN Levetiracetam 1,000 mg/ 110 mls @ 440 mls/hr 09/10/17 06:00 09/13/17 17:13 Dextrose IVPB 440 mls/hr Q12H EUSEBIO Administration Metoprolol Tartrate 25 mg 09/13/17 13:00 09/13/17 15:18 Lopressor PO 25 mg Q8H EUSEBIO Administration Midazolam HCl 2 mg 09/10/17 10:52 09/10/17 22:26 Versed Inj IVP 2 mg Q6H PRN Administration Seizure activity Pantoprazole Sodium 40 mg 08/31/17 10:00 09/13/17 09:17 Protonix Inj IVP 40 mg DAILY EUSEBIO Administration Thiamine HCl 100 mg 08/30/17 22:15 09/13/17 09:17 Vitamin B1 Inj IV 100 mg DAILY EUSEBIO Administration - Patient Studies Lab Studies: Microbiology Studies 09/12/17 18:00 Blood Culture - Preliminary Blood-Venous NO GROWTH AFTER 24 HOURS 09/12/17 18:00 Blood Culture - Preliminary Blood-Venous NO GROWTH AFTER 24 HOURS 09/11/17 10:02 Gram Stain - Final Trachasp Sputum Culture - Final Staphylococcus Aureus Lab Studies 09/13/17 09/13/17 09/13/17 Range/Units 10:44 05:51 05:43 WBC (4.8-10.8) K/uL RBC (3.80-5.20) Mil/uL Hgb (11.0-16.0) g/dL Hct (34.0-47.0) % MCV (81.0-99.0) fL MCH (27.0-31.0) pg MCHC (33.0-37.0) g/dL RDW (11.5-14.5) % Plt Count (130-400) K/uL MPV (7.2-11.7) fL Neut % (Auto) (50.0-75.0) % Lymph % (Auto) (20.0-40.0) % [place] % (Auto) (0.0-10.0) % Eos % (Auto) (0.0-4.0) % Baso % (Auto) (0.0-2.0) % Neut # (1.8-7.0) K/uL Lymph # (1.0-4.3) K/uL [place] # (0.0-0.8) K/uL Eos # (0.0-0.7) K/uL Baso # (0.0-0.2) K/uL Puncture Site Rr pCO2 38 (35-45) mm/Hg pO2 146 H (80-100) mm/Hg HCO3 26.8 (21-28) mmol/L ABG pH 7.45 (7.35-7.45) ABG Total CO2 27.6 (22-28) mmol/L ABG O2 Saturation 99.7 H (95-98) % ABG Base Excess 2.4 (-2.0-3.0) mmol/L ABG Hemoglobin 13.7 (11.7-17.4) g/dL ABG Carboxyhemoglobin 2.3 H (0.5-1.5) % POC ABG HHb (Measured) 0.3 (0.0-5.0) % ABG Methemoglobin 1.3 (0.0-3.0) % Stephen Test Pos A-a O2 Difference 92.0 mm/Hg Respiratory Index 0.6 Hgb O2 Saturation 96.1 (95.0-98.0) % Vent Mode Prvc Mechanical Rate 10 FiO2 40.0 % Tidal Volume 450 PEEP 5 Sodium 132 (132-148) mmol/L Potassium 3.1 L (3.6-5.2) mmol/L Chloride 98 (98-107) mmol/L Carbon Dioxide 26 (22-30) mmol/L Anion Gap 11 (10-20) BUN 6 L (7-17) mg/dL Creatinine 0.3 L (0.7-1.2) mg/dL Est GFR ( Amer) > 60 Est GFR (Non-Af Amer) > 60 Random Glucose 80 (65-105) mg/dL Calcium 9.5 (8.6-10.4) mg/dl Phosphorus 4.3 (2.5-4.5) mg/dL Magnesium 1.6 (1.6-2.3) mg/dL Total Bilirubin 1.8 H (0.2-1.3) mg/dL AST 54 H (14-36) U/L ALT 35 (9-52) U/L Alkaline Phosphatase 166 H (38-126) U/L Total Protein 7.2 (6.3-8.3) g/dL Albumin 2.9 L (3.5-5.0) g/dL Globulin 4.3 H (2.2-3.9) gm/dL Albumin/Globulin Ratio 0.7 L (1.0-2.1) Urine HCG, Qual Negative (NEGATIVE) 09/13/17 Range/Units 05:04 WBC 13.9 H (4.8-10.8) K/uL RBC 3.41 L (3.80-5.20) Mil/uL Hgb 10.2 L (11.0-16.0) g/dL Hct 30.6 L (34.0-47.0) % MCV 89.8 (81.0-99.0) fL MCH 30.0 (27.0-31.0) pg MCHC 33.4 (33.0-37.0) g/dL RDW 14.7 H (11.5-14.5) % Plt Count 310 (130-400) K/uL MPV 7.9 (7.2-11.7) fL Neut % (Auto) 80.9 H (50.0-75.0) % Lymph % (Auto) 11.2 L (20.0-40.0) % [place] % (Auto) 5.6 (0.0-10.0) % Eos % (Auto) 1.7 (0.0-4.0) % Baso % (Auto) 0.6 (0.0-2.0) % Neut # 11.3 H (1.8-7.0) K/uL Lymph # 1.6 (1.0-4.3) K/uL [place] # 0.8 (0.0-0.8) K/uL Eos # 0.2 (0.0-0.7) K/uL Baso # 0.1 (0.0-0.2) K/uL Puncture Site pCO2 (35-45) mm/Hg pO2 (80-100) mm/Hg HCO3 (21-28) mmol/L ABG pH (7.35-7.45) ABG Total CO2 (22-28) mmol/L ABG O2 Saturation (95-98) % ABG Base Excess (-2.0-3.0) mmol/L ABG Hemoglobin (11.7-17.4) g/dL ABG Carboxyhemoglobin (0.5-1.5) % POC ABG HHb (Measured) (0.0-5.0) % ABG Methemoglobin (0.0-3.0) % Stephen Test A-a O2 Difference mm/Hg Respiratory Index Hgb O2 Saturation (95.0-98.0) % Vent Mode Mechanical Rate FiO2 % Tidal Volume PEEP Sodium (132-148) mmol/L Potassium (3.6-5.2) mmol/L Chloride (98-107) mmol/L Carbon Dioxide (22-30) mmol/L Anion Gap (10-20) BUN (7-17) mg/dL Creatinine (0.7-1.2) mg/dL Est GFR ( Amer) Est GFR (Non-Af Amer) Random Glucose (65-105) mg/dL Calcium (8.6-10.4) mg/dl Phosphorus (2.5-4.5) mg/dL Magnesium (1.6-2.3) mg/dL Total Bilirubin (0.2-1.3) mg/dL AST (14-36) U/L ALT (9-52) U/L Alkaline Phosphatase (38-126) U/L Total Protein (6.3-8.3) g/dL Albumin (3.5-5.0) g/dL Globulin (2.2-3.9) gm/dL Albumin/Globulin Ratio (1.0-2.1) Urine HCG, Qual (NEGATIVE) Laboratory Results - last 24 hr 09/13/17 09/13/17 09/13/17 05:04 05:43 05:51 WBC 13.9 H RBC 3.41 L Hgb 10.2 L Hct 30.6 L MCV 89.8 MCH 30.0 MCHC 33.4 RDW 14.7 H Plt Count 310 MPV 7.9 Neut % (Auto) 80.9 H Lymph % (Auto) 11.2 L [place] % (Auto) 5.6 Eos % (Auto) 1.7 Baso % (Auto) 0.6 Neut # 11.3 H Lymph # 1.6 [place] # 0.8 Eos # 0.2 Baso # 0.1 Puncture Site Rr pCO2 38 pO2 146 H HCO3 26.8 ABG pH 7.45 ABG Total CO2 27.6 ABG O2 Saturation 99.7 H ABG Base Excess 2.4 ABG Hemoglobin 13.7 ABG Carboxyhemoglobin 2.3 H POC ABG HHb (Measured) 0.3 ABG Methemoglobin 1.3 Stephen Test Pos A-a O2 Difference 92.0 Respiratory Index 0.6 Hgb O2 Saturation 96.1 Vent Mode Prvc Mechanical Rate 10 FiO2 40.0 Tidal Volume 450 PEEP 5 Sodium 132 Potassium 3.1 L Chloride 98 Carbon Dioxide 26 Anion Gap 11 BUN 6 L Creatinine 0.3 L Est GFR ( Amer) > 60 Est GFR (Non-Af Amer) > 60 Random Glucose 80 Calcium 9.5 Phosphorus 4.3 Magnesium 1.6 Total Bilirubin 1.8 H AST 54 H ALT 35 Alkaline Phosphatase 166 H Total Protein 7.2 Albumin 2.9 L Globulin 4.3 H Albumin/Globulin Ratio 0.7 L Urine HCG, Qual 09/13/17 10:44 WBC RBC Hgb Hct MCV MCH MCHC RDW Plt Count MPV Neut % (Auto) Lymph % (Auto) [place] % (Auto) Eos % (Auto) Baso % (Auto) Neut # Lymph # [place] # Eos # Baso # Puncture Site pCO2 pO2 HCO3 ABG pH ABG Total CO2 ABG O2 Saturation ABG Base Excess ABG Hemoglobin ABG Carboxyhemoglobin POC ABG HHb (Measured) ABG Methemoglobin Stephen Test A-a O2 Difference Respiratory Index Hgb O2 Saturation Vent Mode Mechanical Rate FiO2 Tidal Volume PEEP Sodium Potassium Chloride Carbon Dioxide Anion Gap BUN Creatinine Est GFR ( Amer) Est GFR (Non-Af Amer) Random Glucose Calcium Phosphorus Magnesium Total Bilirubin AST ALT Alkaline Phosphatase Total Protein Albumin Globulin Albumin/Globulin Ratio Urine HCG, Qual Negative Critical Care Progress Note - Nutrition Nutrition: Nutrition Category Date Time Status NPO Diet [DIET] Diets 09/10/17 Breakfast Active NPO Diet [DIET] Diets 09/14/17 Breakfast Active Attending/Attestation - Attestation I have personally seen and examined this patient.: Yes I have fully participated in the care of the patient.: Yes I have reviewed all pertinent clinical information: Yes Notes (Text): 09/13/17 18:57 Today: September The Patient was seen and examined at the bedside, Medical records reviewed, and management issues were discussed and formulated with the house staff. I have reviewed all the relevant clinical, laboratory, hemodynamic, radiographic data and medications Events reviewed, Trach on hold for now Skin care, head of the bed elevation, glycemic control were addressed. Patient persistantly Tachycardiac, started on lopressor and I increased the dose to Q 8H Lytes supplemented Pain issues addressed Full vent suuport of now due to poor mental status I concur with resident's assessment and plan of care as transcribed in Dr. Massey note.
[2017-09-13] MEDS: Midazolam 2 MG/2 ML VIAL IVP PRN (21:08)
[2017-09-14] MEDS: Propofol 10 mg/ml 1,000 MG/100 ML VIAL IV PRN ×3 (01:12→18:28)
[2017-09-14 05:55] LABS: ABG ALLEN TEST POS; ABG MECHANICAL RATE 10; ARTERIAL BLOOD GAS MODE PRVC; ARTERIAL BLOOD HGB O2 SAT 94.3 % (95.0-98.0); ATERIAL BLOOD GAS PEEP 5; CARBOXYHEMOGLOBIN 2.2 % (0.5-1.5); DRAW SITE LR; HHB 2.6 % (0.0-5.0)
[2017-09-14 06:10] LABS: BASO # 0.2 K/uL (0.0-0.2); BASO % 1.1 % (0.0-2.0); EOS # 0.2 K/uL (0.0-0.7); EOS % 1.4 % (0.0-4.0); HEMATOCRIT 31.4 % (34.0-47.0); LYMPH # 1.7 K/uL (1.0-4.3); LYMPH % 11.4 % (20.0-40.0); MEAN CELL VOLUME 90.1 fL (81.0-99.0); MEAN CORPUSCULAR HEMOGLOBIN 29.9 pg (27.0-31.0); MEAN CORPUSCULAR HGB CONC 33.2 g/dL (33.0-37.0); MONO # 1.1 K/uL (0.0-0.8); MONO % 7.1 % (0.0-10.0); RED CELL DISTRIBUTION WIDTH 15.1 % (11.5-14.5); WHITE BLOOD COUNT 14.7 K/uL (4.8-10.8)
[2017-09-14 06:24] LABS: CHLORIDE 97 mmol/L (98-107); SODIUM 130 mmol/L (132-148)
[2017-09-14 06:25] LABS: POTASSIUM 3.4 mmol/L (3.6-5.2)
[2017-09-14 06:26] LABS: GFR AFRICAN-AMERICAN > 60
[2017-09-14 06:27] LABS: ALB/GLOB RATIO 0.7 (1.0-2.1); ALKALINE PHOSPHATASE 154 U/L (38-126); ALT/SGPT 28 U/L (9-52); AST/SGOT 56 U/L (14-36); BILIRUBIN,TOTAL 1.7 mg/dL (0.2-1.3); BLOOD UREA NITROGEN 6 mg/dL (7-17); CALCIUM 9.9 mg/dl (8.6-10.4); CARBON DIOXIDE 24 mmol/L (22-30); GLUCOSE,RANDOM 86 mg/dL (65-105); MAGNESIUM 1.7 mg/dL (1.6-2.3); TOTAL PROTEIN 7.7 g/dL (6.3-8.3)
--- NOTE | 2017-09-14 08:44 | RAD ---
Chest x-ray single frontal view History: Intubated. Comparison: 09/13/2017 Findings: Lines and tubes in stable position. Mild venous congestion. Right hilar prominence. Increased consolidative changes at the left lung base with small left pleural effusion. Nodular density at the left lung base. Degenerative changes in the spine and shoulders. Impression: Lines and tubes in stable position. Mild venous congestion. Right hilar prominence. Increased consolidative changes at the left lung base with small left pleural effusion. Nodular density at the left lung base.
[2017-09-14] MEDS: Midazolam 2 MG/2 ML VIAL IVP PRN (10:40)
[2017-09-14] MEDS: Thiamine 100 mg/ml Inj IV SCH (10:42)
--- NOTE | 2017-09-14 11:28 | CP.PCM.PN ---
Subjective - Date & Time of Evaluation Date of Evaluation: 09/14/17 Time of Evaluation: 11:10 - Subjective Subjective: Progress note dictated #[id number] Objective - Vital Signs/Intake and Output Vital Signs (last 24 hours): Temp Pulse Resp BP Pulse Ox 99.6 F 113 H 19 110/81 99 09/14/17 00:00 09/14/17 06:47 09/14/17 06:47 09/14/17 06:47 09/14/17 06:47 Intake and Output: 09/14/17 09/14/17 06:59 18:59 Intake Total 414 15 Output Total 675 Balance -261 15 - Medications Medications: Current Medications Artificial Tears (Lacri-Lube) 1 gm OS Q6H PRN PRN Reason: Sedation Last Admin: 09/06/17 20:10 Dose: 1 gm Propofol (Diprivan) 1,000 mg in 100 mls @ 2.3 mls/hr IV .Q24H PRN; Protocol; 5 MCG/KG/MIN PRN Reason: TITRATE PER MD ORDER Last Admin: 09/14/17 10:39 Dose: 10.5 mcg/kg/min, 4.829 mls/hr Levetiracetam 1,000 mg/ (Dextrose) 110 mls @ 440 mls/hr IVPB Q12H EUSEBIO Last Admin: 09/14/17 05:13 Dose: 440 mls/hr Metoprolol Tartrate (Lopressor) 25 mg PO Q8H EUSEBIO Last Admin: 09/14/17 05:13 Dose: 25 mg Midazolam HCl (Versed Inj) 2 mg IVP Q6H PRN PRN Reason: Seizure activity Last Admin: 09/14/17 10:40 Dose: 2 mg Pantoprazole Sodium (Protonix Inj) 40 mg IVP DAILY EUSEBIO Last Admin: 09/14/17 10:41 Dose: 40 mg Thiamine HCl (Vitamin B1 Inj) 100 mg IV DAILY EUSEBIO Last Admin: 09/14/17 10:42 Dose: 100 mg - Labs Labs: 09/14/17 06:04 09/14/17 06:04 PT 14.4 SECONDS (9.7-12.2) H 08/30/17 19:30 INR 1.3 08/30/17 19:30 APTT 28 SECONDS (21-34) 08/30/17 19:30
[2017-09-14] MEDS ORDERED: Metoprolol 1 mg/ml Inj IVP ONE (14:30)
--- NOTE | 2017-09-14 14:40 | CP.CCUPN ---
<Liset Massey - Last Filed: 09/14/17 14:09> CCU Subjective - Physician Review Subjective (Free Text): Patient seen and examined at bedside. Patient currently intubated. ROS unobtainable due to patient's current clinical status. CCU Objective - Vital Signs / Intake & Output Vital Signs (Last 4 hours): Vital Signs Temp Pulse Resp BP Pulse Ox 09/14/17 14:00 142 H 15 99 09/14/17 13:47 140 H 20 96/61 L 99 09/14/17 13:00 134 H 27 H 99 09/14/17 12:47 135 H 26 H 102/77 99 09/14/17 12:00 99.1 F 129 H 20 102/77 99 09/14/17 11:47 131 H 20 102/73 99 09/14/17 11:00 123 H 30 H 98 09/14/17 10:47 118 H 19 100/68 98 Intake and Output (Last 8hrs): Intake & Output 09/13/17 09/14/17 09/14/17 22:59 06:59 14:59 Intake Total 616 168 570 Output Total 405 520 380 Balance 211 -352 190 Weight 145 lb Intake: IV 150 50 45 Intake, IV Amount 216 83 185 Right Distal Port 116 83 35 Internal Jugular Right Internal Jugular 150 Right Medial Port 100 Internal Jugular Tube Feeding 250 35 140 Other 200 Output: Urine 405 520 280 Urethral (Andino) 405 520 280 Stool 100 - Physical Exam Head: Positive for: Atraumatic, Normocephalic Pupils: Positive for: Sluggish Extroacular Muscles: Negative for: EOMI Mouth: Positive for: Moist Mucous Membranes Respiratory/Chest: Positive for: Good Air Exchange, Other (intubated ) Cardiovascular: Positive for: Normal S1, S2, Tachycardic Abdomen: Positive for: Normal Bowel Sounds. Negative for: Distention Upper Extremity: Negative for: Edema Lower Extremity: Negative for: Edema Neurological: Negative for: GCS=15, Speech Normal Skin: Positive for: Normal Color Psychiatric: Negative for: Alert, Oriented x 3 - Medications Active Medications: Active Medications Generic Name Dose Route Start Last Admin Trade Name Freq PRN Reason Stop Dose Admin Artificial Tears 1 gm 08/31/17 12:00 09/06/17 20:10 Lacri-Lube OS 1 gm Q6H PRN Administration Sedation Heparin Sodium (Porcine) 5,000 units 09/14/17 12:30 09/14/17 13:00 Heparin SC 5,000 units Q12 EUSEBIO Administration Propofol 1,000 mg in 100 mls @ 2.3 mls/hr 09/05/17 15:59 09/14/17 14:04 Diprivan IV 20 mcg/kg/min .Q24H PRN 9.199 mls/hr TITRATE PER MD ORDER Titration Protocol 5 MCG/KG/MIN Levetiracetam 1,000 mg/ 110 mls @ 440 mls/hr 09/10/17 06:00 09/14/17 05:13 Dextrose IVPB 440 mls/hr Q12H EUSEBIO Administration Metoprolol Tartrate 25 mg 09/13/17 13:00 09/14/17 14:06 Lopressor PO Not Given Q8H EUSEBIO Midazolam HCl 2 mg 09/10/17 10:52 09/14/17 10:40 Versed Inj IVP 2 mg Q6H PRN Administration Seizure activity Pantoprazole Sodium 40 mg 08/31/17 10:00 09/14/17 10:41 Protonix Inj IVP 40 mg DAILY EUSEBIO Administration Thiamine HCl 100 mg 08/30/17 22:15 09/14/17 10:42 Vitamin B1 Inj IV 100 mg DAILY EUSEBIO Administration - Patient Studies Lab Studies: Microbiology Studies 09/12/17 18:00 Urine Culture - Final Urine Yeast Species 09/12/17 18:00 Blood Culture - Preliminary Blood-Venous NO GROWTH AFTER 24 HOURS 09/12/17 18:00 Blood Culture - Preliminary Blood-Venous NO GROWTH AFTER 24 HOURS Lab Studies 09/14/17 09/14/17 09/14/17 Range/Units 06:04 06:04 05:10 WBC 14.7 H (4.8-10.8) K/uL RBC 3.48 L (3.80-5.20) Mil/uL Hgb 10.4 L (11.0-16.0) g/dL Hct 31.4 L (34.0-47.0) % MCV 90.1 (81.0-99.0) fL MCH 29.9 (27.0-31.0) pg MCHC 33.2 (33.0-37.0) g/dL RDW 15.1 H (11.5-14.5) % Plt Count 332 (130-400) K/uL MPV 8.0 (7.2-11.7) fL Neut % (Auto) 79.0 H (50.0-75.0) % Lymph % (Auto) 11.4 L (20.0-40.0) % [place] % (Auto) 7.1 (0.0-10.0) % Eos % (Auto) 1.4 (0.0-4.0) % Baso % (Auto) 1.1 (0.0-2.0) % Neut # 11.6 H (1.8-7.0) K/uL Lymph # 1.7 (1.0-4.3) K/uL [place] # 1.1 H (0.0-0.8) K/uL Eos # 0.2 (0.0-0.7) K/uL Baso # 0.2 (0.0-0.2) K/uL Puncture Site Lr pCO2 35 (35-45) mm/Hg pO2 74 L (80-100) mm/Hg HCO3 27.6 (21-28) mmol/L ABG pH 7.49 H (7.35-7.45) ABG Total CO2 27.8 (22-28) mmol/L ABG O2 Saturation 97.3 (95-98) % ABG Base Excess 3.5 H (-2.0-3.0) mmol/L ABG Hemoglobin 13.6 (11.7-17.4) g/dL ABG Carboxyhemoglobin 2.2 H (0.5-1.5) % POC ABG HHb (Measured) 2.6 (0.0-5.0) % ABG Methemoglobin 1.0 (0.0-3.0) % Stephen Test Pos A-a O2 Difference 167.0 mm/Hg Respiratory Index 2.3 Hgb O2 Saturation 94.3 L (95.0-98.0) % Vent Mode Prvc Mechanical Rate 10 FiO2 40.0 % Tidal Volume 450 PEEP 5 Sodium 130 L (132-148) mmol/L Potassium 3.4 L (3.6-5.2) mmol/L Chloride 97 L (98-107) mmol/L Carbon Dioxide 24 (22-30) mmol/L Anion Gap 12 (10-20) BUN 6 L (7-17) mg/dL Creatinine 0.3 L (0.7-1.2) mg/dL Est GFR ( Amer) > 60 Est GFR (Non-Af Amer) > 60 Random Glucose 86 (65-105) mg/dL Calcium 9.9 (8.6-10.4) mg/dl Magnesium 1.7 (1.6-2.3) mg/dL Total Bilirubin 1.7 H (0.2-1.3) mg/dL AST 56 H (14-36) U/L ALT 28 (9-52) U/L Alkaline Phosphatase 154 H (38-126) U/L Total Protein 7.7 (6.3-8.3) g/dL Albumin 3.2 L (3.5-5.0) g/dL Globulin 4.5 H (2.2-3.9) gm/dL Albumin/Globulin Ratio 0.7 L (1.0-2.1) Laboratory Results - last 24 hr 09/14/17 09/14/17 09/14/17 05:10 06:04 06:04 WBC 14.7 H RBC 3.48 L Hgb 10.4 L Hct 31.4 L MCV 90.1 MCH 29.9 MCHC 33.2 RDW 15.1 H Plt Count 332 MPV 8.0 Neut % (Auto) 79.0 H Lymph % (Auto) 11.4 L [place] % (Auto) 7.1 Eos % (Auto) 1.4 Baso % (Auto) 1.1 Neut # 11.6 H Lymph # 1.7 [place] # 1.1 H Eos # 0.2 Baso # 0.2 Puncture Site Lr pCO2 35 pO2 74 L HCO3 27.6 ABG pH 7.49 H ABG Total CO2 27.8 ABG O2 Saturation 97.3 ABG Base Excess 3.5 H ABG Hemoglobin 13.6 ABG Carboxyhemoglobin 2.2 H POC ABG HHb (Measured) 2.6 ABG Methemoglobin 1.0 Stephen Test Pos A-a O2 Difference 167.0 Respiratory Index 2.3 Hgb O2 Saturation 94.3 L Vent Mode Prvc Mechanical Rate 10 FiO2 40.0 Tidal Volume 450 PEEP 5 Sodium 130 L Potassium 3.4 L Chloride 97 L Carbon Dioxide 24 Anion Gap 12 BUN 6 L Creatinine 0.3 L Est GFR ( Amer) > 60 Est GFR (Non-Af Amer) > 60 Random Glucose 86 Calcium 9.9 Magnesium 1.7 Total Bilirubin 1.7 H AST 56 H ALT 28 Alkaline Phosphatase 154 H Total Protein 7.7 Albumin 3.2 L Globulin 4.5 H Albumin/Globulin Ratio 0.7 L Fingerstick Blood Sugar Results: 123 Review of Systems - Review of Systems Systems not reviewed;Unavailable: Intubated Critical Care Progress Note - Nutrition Nutrition: Nutrition Category Date Time Status NPO Diet [DIET] Diets 09/14/17 Breakfast Active Assessment/Plan - Assessment and Plan (Free Text) Assessment: 36 year old female with past medical history of anemia and alcohol abuse, who was found unconscious by . EMS was called and patient was found to be in Asystole, ACLS protocol was initiated and 2 rounds of epinephrine and then ROSC. Patient was unconscious in the ED. Subsequently, patient was admitted to the ICU and hypothermia protocol was initiated. Plan: Neuro: Intubated, Acute seizures Neurologist, Dr. Pugh---> help appreciated * Management as per recommendation Medication/Management: * Keppra 500mg IV Q12H * Versed PRN * Propofol (Titratable) Imaging: * EEG (08/31/17): globally abnormal EEG because of persistent spike and wave activities consistent with status epilepticus. Please correlate the findings with neurological and radiological studies * Cerebral blood flow (09/03/17): does not conform to nuclear medicine diagnosis of brain . There is a faint cerebral flow, the study is considered technically suboptimal for reasons related to technique and poor visualization of carotid arteries. * CT head w/o contrast (09/03/17): No mass effect or edema. No atrophy or chronic microvascular. * EEG (09/06): status epilepticus * F/U head CT (09/12/17): asymmetric low attenuation in the L basal ganglia could represent anoxic injury. Mild global parenchymal volume loss, advanced for the patient's age. Cardio: Cardiopulmonary Arrest Management: * Intubated * Hypothermia protocol was initiated Pulm: Respiratory distress secondary to cardiac arrest Management: * Intubated * sputum culture: staph * D Dimer: [id number] * CTA: no evidence of PE, bibasilar consolidation. Upper lobe interstitial infiltrates. * Dr. Dockery consulted for trach evaluation, trach rescheduled for Sunday GI: Diarrhea * C. Dif negative * PEG placement by Dr. Dockery for Sunday Renal: Electrolyte imbalance Nephrology, Dr. Ramos---> Help appreciated * Management as per recommendation * electrolytes repleted as needed * KCl 20mEq daily Heme: anemia * H/H: 09/12 dropped to 7.3/22.5 from 8.1/24.5- patient was transfused 2 u PRBCs * H/H: 10.4/31.4 on 09/14-stable ID: * urine: yeast * sputum: staph aureus * no antibiotics indicated at this time Psych: Alcohol abuse disorder * Thiamine 100mg IV daily * Psychiatric consult once patient is clinically stable Prophylaxis measures: * R IJ in place * DVT: SCDs, Heparin 5,000units SC Q12H * GI: Protonix 40mg IV daily * tube feeds: jevity 20cc/hr <Jimbo Pete - Last Filed: 09/14/17 15:22> CCU Objective - Vital Signs / Intake & Output Vital Signs (Last 4 hours): Vital Signs Temp Pulse Resp BP Pulse Ox 09/14/17 14:35 99.6 F 144 H 19 100/62 100 09/14/17 14:00 142 H 15 99 09/14/17 13:47 140 H 20 96/61 L 99 09/14/17 13:00 134 H 27 H 99 09/14/17 12:47 135 H 26 H 102/77 99 09/14/17 12:00 99.1 F 129 H 20 102/77 99 09/14/17 11:47 131 H 20 102/73 99 Intake and Output (Last 8hrs): Intake & Output 09/14/17 09/14/17 09/14/17 06:59 14:59 22:59 Intake Total 168 601.5 Output Total 520 380 Balance -352 221.5 Weight 145 lb Intake: IV 50 65 Intake, IV Amount 83 196.5 Right Distal Port 83 46.5 Internal Jugular Right Internal Jugular 150 Tube Feeding 35 140 Other 200 Output: Urine 520 280 Urethral (Andino) 520 280 Stool 100 - Medications Active Medications: Active Medications Generic Name Dose Route Start Last Admin Trade Name Freq PRN Reason Stop Dose Admin Artificial Tears 1 gm 08/31/17 12:00 09/06/17 20:10 Lacri-Lube OS 1 gm Q6H PRN Administration Sedation Heparin Sodium (Porcine) 5,000 units 09/14/17 12:30 09/14/17 13:00 Heparin SC 5,000 units Q12 EUSEBIO Administration Propofol 1,000 mg in 100 mls @ 2.3 mls/hr 09/05/17 15:59 09/14/17 14:52 Diprivan IV 25 mcg/kg/min .Q24H PRN 11.499 mls/hr TITRATE PER MD ORDER Titration Protocol 5 MCG/KG/MIN Levetiracetam 1,000 mg/ 110 mls @ 440 mls/hr 09/10/17 06:00 09/14/17 05:13 Dextrose IVPB 440 mls/hr Q12H EUSEBIO Administration Metoprolol Tartrate 25 mg 09/13/17 13:00 09/14/17 14:06 Lopressor PO Not Given Q8H EUSEBIO Midazolam HCl 2 mg 09/10/17 10:52 09/14/17 10:40 Versed Inj IVP 2 mg Q6H PRN Administration Seizure activity Pantoprazole Sodium 40 mg 08/31/17 10:00 09/14/17 10:41 Protonix Inj IVP 40 mg DAILY EUSEBIO Administration Potassium Chloride 20 meq 09/14/17 14:30 09/14/17 14:52 Potassium Chloride Oral Soln PO 20 meq DAILY EUESBIO Administration Thiamine HCl 100 mg 08/30/17 22:15 09/14/17 10:42 Vitamin B1 Inj IV 100 mg DAILY EUSEBIO Administration - Patient Studies Lab Studies: Microbiology Studies 09/12/17 18:00 Urine Culture - Final Urine Yeast Species 09/12/17 18:00 Blood Culture - Preliminary Blood-Venous NO GROWTH AFTER 24 HOURS 09/12/17 18:00 Blood Culture - Preliminary Blood-Venous NO GROWTH AFTER 24 HOURS Lab Studies 09/14/17 09/14/17 09/14/17 Range/Units 06:04 06:04 05:10 WBC 14.7 H (4.8-10.8) K/uL RBC 3.48 L (3.80-5.20) Mil/uL Hgb 10.4 L (11.0-16.0) g/dL Hct 31.4 L (34.0-47.0) % MCV 90.1 (81.0-99.0) fL MCH 29.9 (27.0-31.0) pg MCHC 33.2 (33.0-37.0) g/dL RDW 15.1 H (11.5-14.5) % Plt Count 332 (130-400) K/uL MPV 8.0 (7.2-11.7) fL Neut % (Auto) 79.0 H (50.0-75.0) % Lymph % (Auto) 11.4 L (20.0-40.0) % [place] % (Auto) 7.1 (0.0-10.0) % Eos % (Auto) 1.4 (0.0-4.0) % Baso % (Auto) 1.1 (0.0-2.0) % Neut # 11.6 H (1.8-7.0) K/uL Lymph # 1.7 (1.0-4.3) K/uL [place] # 1.1 H (0.0-0.8) K/uL Eos # 0.2 (0.0-0.7) K/uL Baso # 0.2 (0.0-0.2) K/uL Puncture Site Lr pCO2 35 (35-45) mm/Hg pO2 74 L (80-100) mm/Hg HCO3 27.6 (21-28) mmol/L ABG pH 7.49 H (7.35-7.45) ABG Total CO2 27.8 (22-28) mmol/L ABG O2 Saturation 97.3 (95-98) % ABG Base Excess 3.5 H (-2.0-3.0) mmol/L ABG Hemoglobin 13.6 (11.7-17.4) g/dL ABG Carboxyhemoglobin 2.2 H (0.5-1.5) % POC ABG HHb (Measured) 2.6 (0.0-5.0) % ABG Methemoglobin 1.0 (0.0-3.0) % Stephen Test Pos A-a O2 Difference 167.0 mm/Hg Respiratory Index 2.3 Hgb O2 Saturation 94.3 L (95.0-98.0) % Vent Mode Prvc Mechanical Rate 10 FiO2 40.0 % Tidal Volume 450 PEEP 5 Sodium 130 L (132-148) mmol/L Potassium 3.4 L (3.6-5.2) mmol/L Chloride 97 L (98-107) mmol/L Carbon Dioxide 24 (22-30) mmol/L Anion Gap 12 (10-20) BUN 6 L (7-17) mg/dL Creatinine 0.3 L (0.7-1.2) mg/dL Est GFR ( Amer) > 60 Est GFR (Non-Af Amer) > 60 Random Glucose 86 (65-105) mg/dL Calcium 9.9 (8.6-10.4) mg/dl Magnesium 1.7 (1.6-2.3) mg/dL Total Bilirubin 1.7 H (0.2-1.3) mg/dL AST 56 H (14-36) U/L ALT 28 (9-52) U/L Alkaline Phosphatase 154 H (38-126) U/L Total Protein 7.7 (6.3-8.3) g/dL Albumin 3.2 L (3.5-5.0) g/dL Globulin 4.5 H (2.2-3.9) gm/dL Albumin/Globulin Ratio 0.7 L (1.0-2.1) Laboratory Results - last 24 hr 09/14/17 09/14/17 09/14/17 05:10 06:04 06:04 WBC 14.7 H RBC 3.48 L Hgb 10.4 L Hct 31.4 L MCV 90.1 MCH 29.9 MCHC 33.2 RDW 15.1 H Plt Count 332 MPV 8.0 Neut % (Auto) 79.0 H Lymph % (Auto) 11.4 L [place] % (Auto) 7.1 Eos % (Auto) 1.4 Baso % (Auto) 1.1 Neut # 11.6 H Lymph # 1.7 [place] # 1.1 H Eos # 0.2 Baso # 0.2 Puncture Site Lr pCO2 35 pO2 74 L HCO3 27.6 ABG pH 7.49 H ABG Total CO2 27.8 ABG O2 Saturation 97.3 ABG Base Excess 3.5 H ABG Hemoglobin 13.6 ABG Carboxyhemoglobin 2.2 H POC ABG HHb (Measured) 2.6 ABG Methemoglobin 1.0 Stephen Test Pos A-a O2 Difference 167.0 Respiratory Index 2.3 Hgb O2 Saturation 94.3 L Vent Mode Prvc Mechanical Rate 10 FiO2 40.0 Tidal Volume 450 PEEP 5 Sodium 130 L Potassium 3.4 L Chloride 97 L Carbon Dioxide 24 Anion Gap 12 BUN 6 L Creatinine 0.3 L Est GFR ( Amer) > 60 Est GFR (Non-Af Amer) > 60 Random Glucose 86 Calcium 9.9 Magnesium 1.7 Total Bilirubin 1.7 H AST 56 H ALT 28 Alkaline Phosphatase 154 H Total Protein 7.7 Albumin 3.2 L Globulin 4.5 H Albumin/Globulin Ratio 0.7 L Critical Care Progress Note - Nutrition Nutrition: Nutrition Category Date Time Status NPO Diet [DIET] Diets 09/14/17 Breakfast Active Assessment/Plan (1) Cardiac arrest Current Visit: Yes Status: Acute Attending/Attestation - Attestation I have personally seen and examined this patient.: Yes I have fully participated in the care of the patient.: Yes I have reviewed all pertinent clinical information: Yes Notes (Text): 09/14/17 15:18 I have seen and examined the patient. Medical records, lab studies, and imaging were reviewed by me and a management plan was formulated on multidisciplinary rounds with resident Dr. Massey. I agree with their documented assessment and plan. Patient is showing no signs of meaningful recovery. Trach/PEG placement scheduled for Sunday. 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 Critical Care Time 35 minutes. Multi-disciplinary rounds were performed with house staff, nursing, speech therapy, respiratory therapy, pharmacy and nutrition with integrated input from the primary team/attending and other consulting services. The documented time is cumulative and includes review of patient data/exams/labs/chart review and examination of the patient on rounds and throughout the day; time is exclusive of any procedures or teaching time.
[2017-09-14] MEDS: Potassium Chloride 20 mEq/15 ml LIQ UD PO SCH (14:52)
[2017-09-14] MEDS ORDERED: Acetaminophen 160 mg/5 ml UD PO ONE (18:42)
[2017-09-14] MEDS ORDERED: Acetaminophen 650mg/20.3ml solution UD NG STA (19:01)
[2017-09-14] MEDS ORDERED: Metoprolol 1 mg/ml Inj IVP STA (19:54)
[2017-09-15] MEDS ORDERED: Sodium Chloride 0.9% 500 ML IV ONE (00:35)
[2017-09-15] MEDS: Propofol 10 mg/ml 1,000 MG/100 ML VIAL IV PRN ×3 (02:30→16:40)
[2017-09-15] MEDS: Midazolam 2 MG/2 ML VIAL IVP PRN (03:41)
[2017-09-15] MEDS: Acetaminophen 650mg/20.3ml solution UD NG PRN (04:02)
[2017-09-15 05:35] LABS: ABG ALLEN TEST POS; ABG MECHANICAL RATE 10; ARTERIAL BLOOD GAS MODE PRVC; ARTERIAL BLOOD HGB O2 SAT 96.1 % (95.0-98.0); ATERIAL BLOOD GAS PEEP 5; CARBOXYHEMOGLOBIN 2.1 % (0.5-1.5); DRAW SITE LR; HHB 0.6 % (0.0-5.0); METHEMOGLOBIN 1.2 % (0.0-3.0)
[2017-09-15 06:43] LABS: BASO # 0.1 K/uL (0.0-0.2); BASO % 0.8 % (0.0-2.0); EOS # 0.2 K/uL (0.0-0.7); EOS % 1.2 % (0.0-4.0); HEMATOCRIT 32.7 % (34.0-47.0); LYMPH # 1.5 K/uL (1.0-4.3); LYMPH % 8.5 % (20.0-40.0); MEAN CELL VOLUME 90.7 fL (81.0-99.0); MEAN CORPUSCULAR HEMOGLOBIN 29.5 pg (27.0-31.0); MEAN CORPUSCULAR HGB CONC 32.5 g/dL (33.0-37.0); MEAN PLATELET VOLUME 8.4 fL (7.2-11.7); MONO # 0.9 K/uL (0.0-0.8); MONO % 5.2 % (0.0-10.0); PLATELET COUNT 406 K/uL (130-400); RED CELL DISTRIBUTION WIDTH 14.9 % (11.5-14.5); WHITE BLOOD COUNT 18.2 K/uL (4.8-10.8)
[2017-09-15 06:52] LABS: CHLORIDE 97 mmol/L (98-107); POTASSIUM 3.2 mmol/L (3.6-5.2); SODIUM 131 mmol/L (132-148)
[2017-09-15 06:54] LABS: ALKALINE PHOSPHATASE 151 U/L (38-126); AST/SGOT 39 U/L (14-36); BILIRUBIN,TOTAL 1.3 mg/dL (0.2-1.3); CARBON DIOXIDE 25 mmol/L (22-30); GFR AFRICAN-AMERICAN > 60
[2017-09-15 06:55] LABS: ALB/GLOB RATIO 0.7 (1.0-2.1); ALT/SGPT 21 U/L (9-52); BLOOD UREA NITROGEN 9 mg/dL (7-17); GLUCOSE,RANDOM 119 mg/dL (65-105); MAGNESIUM 1.5 mg/dL (1.6-2.3); PHOSPHOROUS 2.6 mg/dL (2.5-4.5)
[2017-09-15 08:29] LABS: EOSINOPHIL 1 % (0-4); NEUTROPHIL 83 % (50-75); TOTAL CELLS COUNTED 100
--- NOTE | 2017-09-15 08:57 | CP.PCM.PN ---
Subjective - Date & Time of Evaluation Date of Evaluation: 09/15/17 Time of Evaluation: 08:30 - Subjective Subjective: Progress note dictated #[id number] Objective - Vital Signs/Intake and Output Vital Signs (last 24 hours): Temp Pulse Resp BP Pulse Ox 101.1 F H 133 H 21 102/72 100 09/15/17 08:00 09/15/17 07:00 09/15/17 07:00 09/15/17 06:47 09/15/17 07:00 Intake and Output: 09/15/17 09/15/17 06:59 18:59 Intake Total 785.6 148.8 Output Total 320 Balance 465.6 148.8 - Medications Medications: Current Medications Acetaminophen (Tylenol 650mg/20.3ml Solution Ud) 650 mg NG Q6 PRN PRN Reason: Temperature Last Admin: 09/15/17 04:02 Dose: 650 mg Artificial Tears (Lacri-Lube) 1 gm OS Q6H PRN PRN Reason: Sedation Last Admin: 09/06/17 20:10 Dose: 1 gm Heparin Sodium (Porcine) (Heparin) 5,000 units SC Q12 EUSEBIO Last Admin: 09/14/17 21:10 Dose: 5,000 units Propofol (Diprivan) 1,000 mg in 100 mls @ 2.3 mls/hr IV .Q24H PRN; Protocol; 5 MCG/KG/MIN PRN Reason: TITRATE PER MD ORDER Last Admin: 09/15/17 08:38 Dose: 30 mcg/kg/min, 13.798 mls/hr Levetiracetam 1,000 mg/ (Dextrose) 110 mls @ 440 mls/hr IVPB Q12H [facility] Last Admin: 09/15/17 05:33 Dose: 440 mls/hr Fluconazole (Diflucan Iv 100 Mg/50 Ml Ns) 50 mls @ 50 mls/hr IVPB DAILY [facility] Magnesium Sulfate/Dextrose (Magnesium Sulfate 1 Gm/100 Ml D5w) 1 gm in 100 mls @ 300 mls/hr IVPB Q30M [facility] Stop: 09/15/17 11:49 Piperacillin Sod/Tazobactam Sod (Zosyn 3.375 Gm Iv Premix) 3.375 gm in 50 mls @ 100 mls/hr IVPB Q6 [facility] Potassium Chloride (Potassium Chloride 20 Meq/100 Ml) 20 meq in 100 mls @ 50 mls/hr IVPB ONCE ONE Stop: 09/15/17 10:45 Magnesium Sulfate/Dextrose (Magnesium Sulfate 1 Gm/100 Ml D5w) 1 gm in 100 mls @ 300 mls/hr IVPB Q30M [facility] Stop: 09/15/17 10:49 Metoprolol Tartrate (Lopressor) 25 mg PO Q8H [facility] Last Admin: 09/15/17 04:03 Dose: 25 mg Midazolam HCl (Versed Inj) 2 mg IVP Q6H PRN PRN Reason: Seizure activity Last Admin: 09/15/17 03:41 Dose: 2 mg Pantoprazole Sodium (Protonix Inj) 40 mg IVP DAILY [facility] Last Admin: 09/14/17 10:41 Dose: 40 mg Potassium Chloride (Potassium Chloride Oral Soln) 20 meq PO DAILY [facility] Last Admin: 09/14/17 14:52 Dose: 20 meq Scopolamine (Transderm-Scop) 1 patch TD Q3D [facility] Last Admin: 09/14/17 22:23 Dose: 1 patch Thiamine HCl (Vitamin B1 Inj) 100 mg IV DAILY [facility] Last Admin: 09/14/17 10:42 Dose: 100 mg - Labs Labs: 09/15/17 06:34 09/15/17 06:35 PT 14.4 SECONDS (9.7-12.2) H 08/30/17 19:30 INR 1.3 08/30/17 19:30 APTT 28 SECONDS (21-34) 08/30/17 19:30
[2017-09-15] MEDS: Magnesium Sulfate 1 gm in D5W 1 GM/100 ML BAG IVPB SCH ×3 (09:15→10:51)
[2017-09-15] MEDS: Potassium Chloride 20 mEq/15 ml LIQ UD PO SCH (09:15)
[2017-09-15] MEDS: Thiamine 100 mg/ml Inj IV SCH (09:15)
--- NOTE | 2017-09-15 10:57 | PN ---
DATE: 09/15/2017 SUBJECTIVE: The patient is seen and examined at beside. The patient remains intubated, sedated with decreased involuntary movements today. PHYSICAL EXAMINATION: VITAL SIGNS: Blood pressure is 102/72, pulse is 130, respirations are 19, O2 saturation is 99% on 40% FiO2, tidal volume 450, set rate 10 and PEEP of 5. T-max is 101.2. INTAKE AND OUTPUT: Intake is 1815 and output is 1850. HEENT: Pupils are sluggishly reactive to light. No icterus. Positive pallor. ET tube and gastric tube in the oral cavity. NECK: Supple. LUNGS: Bilateral vesicular breath sounds. Bilateral basal crackles. CARDIOVASCULAR SYSTEM: S1 and S2 present, tachycardic. ABDOMEN: Soft and nontender. Bowel sounds are present. CENTRAL NERVOUS SYSTEM: Sedated, intubated, and unresponsive. Not responding to deep painful stimuli or verbal stimuli. Not moving any extremities. Having involuntary twitching eyelid movements. EXTREMITIES: No edema. MEDICATIONS: Include Tylenol, artificial tears, heparin 500 units subcutaneous q. 12 hours., Keppra 1 g IV q. 12 hours., Lopressor 25 mg p.o. q. 8 hours., Versed 2 mg IV q. 6 hours., Protonix 40 mg IV daily, KCl 20 mEq daily, propofol 30 mcg/kg per minute, transdermal patch, and thiamine 100 mg IV daily. LABORATORY DATA: From this morning, WBC of 18.2, hemoglobin of 10.6, hematocrit of 32.7, and platelets of 406. ABG on 40% FiO2, pH of 7.5, pCO2 of 33, pO2 of 77, and O2 saturation is 99%. Sodium is 131, potassium is 3.2, chloride is 97, bicarbonate is 25, BUN is 9, and creatinine is 0.3. Glucose is 119, calcium is 10.0, phosphorus is 2.6, and magnesium is 1.5. Bilirubin is 1.3. AST is 39, ALT is 21, and alkaline phosphatase is 151. Total protein is 8 and albumin is 3.3. Urine culture; yeast species. Blood culture x2, negative from 09/12/2017. On 09/11/2017 transtracheal aspirate positive for Staphylococcus aureus, sensitive to Bactrim, clindamycin, ciprofloxacin, erythromycin, gentamicin, levofloxacin, Zosyn and moxifloxacin, but resistant to penicillin and sensitive to vancomycin. DIAGNOSTIC DATA: Chest x-ray from 09/14/2017, increased consolidative changes at the left lung base with small left pleural effusion and nodular density at the left lung base. ASSESSMENT AND PLAN: Young female with ETOH abuse, substance abuse, and chronic back problems status post surgeries, wheelchair bound, admitted status post cardiac arrest with multiple left-sided abnormalities, ventilator dependant, respiratory failure, anoxic encephalopathy, now seizures, persistent electrolyte abnormalities, fever with elevated WBC count and yeast in the urine with sinus tachycardia, consistent with possible sepsis. Mental status remains the same, continue with ventilator support to keep O2 saturations more than 90%. Continue with some gastrointestinal and deep venous thrombosis prophylaxis. We will start Diflucan intravenous and intravenous Zosyn. I will obtain Infectious Diseases consult with Dr. Wilson, I will continue supportive care for possible percutaneous endoscopic gastrostomy and tracheostomy on Sunday. Condition is critical and prognosis is guarded. Awaiting for ethics consult, and we will follow up with palliative care. Phoenix Caballero MD
[2017-09-15] MEDS: Cefepime IV 2 gm in Dextrose 2 GM/100 ML BAG IVPB SCH ×2 (11:00→18:49)
[2017-09-15] MEDS: Fluconazole IV 100mg/50 ml NS 50 ML IVPB SCH (11:30)
[2017-09-15] MEDS ORDERED: Piperacill/Tazo 3.375gm in Dex 3.375 GM/50 ML BAG IVPB SCH (12:00)
--- NOTE | 2017-09-15 22:07 | CP.CCUPN ---
CCU Subjective - Physician Review Events Since Last Encounter (Free Text): 09/15/17 22:05 patient is on ventilator. No new changes. Tachycardia noted. Slow improvement. On admitting for tracheostomy. Critical Care Time Spent (in minutes): 45 CCU Objective - Vital Signs / Intake & Output Vital Signs (Last 4 hours): Vital Signs Temp Pulse Resp BP 09/15/17 21:23 108/75 09/15/17 20:47 138 H 22 108/75 09/15/17 20:34 141 H 24 101/71 09/15/17 20:31 139 H 23 09/15/17 20:00 100.7 F H 133 H 32 H 09/15/17 19:47 139 H 22 /09/15/17 19:00 134 H 23 09/15/17 18:48 134 H 24 109/73 Intake and Output (Last 8hrs): Intake & Output 09/15/17 09/15/17 09/15/17 06:59 14:59 22:59 Intake Total 490.4 690.4 592.8 Output Total 230 290 200 Balance 260.4 400.4 392.8 Weight 146 lb 14.4 oz 146 lb Intake: IV 100 100 100 Intake, IV Amount 110.4 310.4 282.8 Right Distal Port 110.4 110.4 82.8 Internal Jugular Right Proximal Port 200 200 Internal Jugular Tube Feeding 280 280 210 Output: Urine 205 240 170 Urethral (Andino) 205 240 170 Stool 25 50 30 Emesis 0 0 - Physical Exam Narrative Physical Exam (Free Text): 09/15/17 22:06 patient is unresponsive On ventilator. Head: Positive for: Atraumatic, Normocephalic Pupils: Positive for: Sluggish Extroacular Muscles: Negative for: EOMI Mouth: Positive for: Moist Mucous Membranes Respiratory/Chest: Positive for: Good Air Exchange, Other (intubated ) Cardiovascular: Positive for: Normal S1, S2, Tachycardic Abdomen: Positive for: Normal Bowel Sounds. Negative for: Distention Upper Extremity: Negative for: Edema Lower Extremity: Negative for: Edema Neurological: Negative for: GCS=15, Speech Normal Skin: Positive for: Normal Color Psychiatric: Negative for: Alert, Oriented x 3 - Medications Active Medications: Active Medications Generic Name Dose Route Start Last Admin Trade Name Freq PRN Reason Stop Dose Admin Acetaminophen 650 mg 09/15/17 03:51 09/15/17 04:02 Tylenol 650mg/20.3ml Solution Ud NG 650 mg Q6 PRN Administration Temperature Artificial Tears 1 gm 08/31/17 12:00 09/06/17 20:10 Lacri-Lube OS 1 gm Q6H PRN Administration Sedation Heparin Sodium (Porcine) 5,000 units 09/14/17 12:30 09/15/17 21:23 Heparin SC 5,000 units Q12 EUSEBIO Administration Propofol 1,000 mg in 100 mls @ 2.3 mls/hr 09/05/17 15:59 09/15/17 16:40 Diprivan IV 30 mcg/kg/min .Q24H PRN 13.798 mls/hr TITRATE PER MD ORDER Administration Protocol 5 MCG/KG/MIN Levetiracetam 1,000 mg/ 110 mls @ 440 mls/hr 09/10/17 06:00 09/15/17 17:22 Dextrose IVPB 440 mls/hr Q12H EUSEBIO Administration Fluconazole 50 mls @ 50 mls/hr 09/15/17 11:30 09/15/17 11:30 Diflucan Iv 100 Mg/50 Ml Ns IVPB 50 mls/hr DAILY EUSEBIO Administration Cefepime HCl 2 gm in 100 mls @ 200 mls/hr 09/15/17 11:00 09/15/17 18:49 Maxipime Iv 2 Gm Premix IVPB 09/20/17 11:01 200 mls/hr Q8H EUSEBIO Administration Metoprolol Tartrate 25 mg 09/13/17 13:00 09/15/17 21:23 Lopressor PO 25 mg Q8H EUSEBIO Administration Midazolam HCl 2 mg 09/10/17 10:52 09/15/17 03:41 Versed Inj IVP 2 mg Q6H PRN Administration Seizure activity Pantoprazole Sodium 40 mg 08/31/17 10:00 09/15/17 09:15 Protonix Inj IVP 40 mg DAILY EUSEBIO Administration Potassium Chloride 20 meq 09/14/17 14:30 09/15/17 09:15 Potassium Chloride Oral Soln PO 20 meq DAILY EUSEBIO Administration Scopolamine 1 patch 09/14/17 22:00 09/14/17 22:23 Transderm-Scop TD 1 patch Q3D EUSEBIO Administration Thiamine HCl 100 mg 08/30/17 22:15 09/15/17 09:15 Vitamin B1 Inj IV 100 mg DAILY EUSEBIO Administration - Patient Studies Lab Studies: Microbiology Studies 09/12/17 18:00 Blood Culture - Preliminary Blood-Venous NO GROWTH AFTER 3 DAYS 09/12/17 18:00 Blood Culture - Preliminary Blood-Venous NO GROWTH AFTER 3 DAYS Lab Studies 09/15/17 09/15/17 09/15/17 Range/Units 06:35 06:34 05:09 WBC 18.2 H (4.8-10.8) K/uL RBC 3.60 L (3.80-5.20) Mil/uL Hgb 10.6 L (11.0-16.0) g/dL Hct 32.7 L (34.0-47.0) % MCV 90.7 (81.0-99.0) fL MCH 29.5 (27.0-31.0) pg MCHC 32.5 L (33.0-37.0) g/dL RDW 14.9 H (11.5-14.5) % Plt Count 406 H (130-400) K/uL MPV 8.4 (7.2-11.7) fL Neut % (Auto) 84.3 H (50.0-75.0) % Lymph % (Auto) 8.5 L (20.0-40.0) % [place] % (Auto) 5.2 (0.0-10.0) % Eos % (Auto) 1.2 (0.0-4.0) % Baso % (Auto) 0.8 (0.0-2.0) % Neut # 15.3 H (1.8-7.0) K/uL Lymph # 1.5 (1.0-4.3) K/uL [place] # 0.9 H (0.0-0.8) K/uL Eos # 0.2 (0.0-0.7) K/uL Baso # 0.1 (0.0-0.2) K/uL Neutrophils % (Manual) 83 H (50-75) % Band Neutrophils % 2 (0-2) % Lymphocytes % (Manual) 5 L (20-40) % Monocytes % (Manual) 9 (0-10) % Eosinophils % (Manual) 1 (0-4) % Platelet Estimate Slightly increased H (NORMAL) Polychromasia Slight Hypochromasia (manual) Slight Puncture Site Lr pCO2 33 L (35-45) mm/Hg pO2 77 L (80-100) mm/Hg HCO3 27.0 (21-28) mmol/L ABG pH 7.50 H (7.35-7.45) ABG Total CO2 26.7 (22-28) mmol/L ABG O2 Saturation 99.4 H (95-98) % ABG Base Excess 2.7 (-2.0-3.0) mmol/L ABG Hemoglobin 10.4 L (11.7-17.4) g/dL ABG Carboxyhemoglobin 2.1 H (0.5-1.5) % POC ABG HHb (Measured) 0.6 (0.0-5.0) % ABG Methemoglobin 1.2 (0.0-3.0) % Stephen Test Pos A-a O2 Difference 167.0 mm/Hg Respiratory Index 2.2 Hgb O2 Saturation 96.1 (95.0-98.0) % Vent Mode Prvc Mechanical Rate 10 FiO2 40.0 % Tidal Volume 450 PEEP 5 Sodium 131 L (132-148) mmol/L Potassium 3.2 L (3.6-5.2) mmol/L Chloride 97 L (98-107) mmol/L Carbon Dioxide 25 (22-30) mmol/L Anion Gap 12 (10-20) BUN 9 (7-17) mg/dL Creatinine 0.3 L (0.7-1.2) mg/dL Est GFR ( Amer) > 60 Est GFR (Non-Af Amer) > 60 Random Glucose 119 H (65-105) mg/dL Calcium 10.0 (8.6-10.4) mg/dl Phosphorus 2.6 (2.5-4.5) mg/dL Magnesium 1.5 L (1.6-2.3) mg/dL Total Bilirubin 1.3 (0.2-1.3) mg/dL AST 39 H D (14-36) U/L ALT 21 (9-52) U/L Alkaline Phosphatase 151 H (38-126) U/L Total Protein 8.0 (6.3-8.3) g/dL Albumin 3.3 L (3.5-5.0) g/dL Globulin 4.7 H (2.2-3.9) gm/dL Albumin/Globulin Ratio 0.7 L (1.0-2.1) Laboratory Results - last 24 hr 09/15/17 09/15/17 09/15/17 05:09 06:34 06:35 WBC 18.2 H RBC 3.60 L Hgb 10.6 L Hct 32.7 L MCV 90.7 MCH 29.5 MCHC 32.5 L RDW 14.9 H Plt Count 406 H MPV 8.4 Neut % (Auto) 84.3 H Lymph % (Auto) 8.[address] [place] % (Auto) 5.2 Eos % (Auto) 1.2 Baso % (Auto) 0.8 Neut # 15.3 H Lymph # 1.5 [place] # 0.9 H Eos # 0.2 Baso # 0.1 Neutrophils % (Manual) 83 H Band Neutrophils % 2 Lymphocytes % (Manual) 5 L Monocytes % (Manual) 9 Eosinophils % (Manual) 1 Platelet Estimate Slightly increased H Polychromasia Slight Hypochromasia (manual) Slight Puncture Site Lr pCO2 33 L pO2 77 L HCO3 27.0 ABG pH 7.50 H ABG Total CO2 26.7 ABG O2 Saturation 99.4 H ABG Base Excess 2.7 ABG Hemoglobin 10.4 L ABG Carboxyhemoglobin 2.1 H POC ABG HHb (Measured) 0.6 ABG Methemoglobin 1.2 Stephen Test Pos A-a O2 Difference 167.0 Respiratory Index 2.2 Hgb O2 Saturation 96.1 Vent Mode Prvc Mechanical Rate 10 FiO2 40.0 Tidal Volume 450 PEEP 5 Sodium 131 L Potassium 3.2 L Chloride 97 L Carbon Dioxide 25 Anion Gap 12 BUN 9 Creatinine 0.3 L Est GFR ( Amer) > 60 Est GFR (Non-Af Amer) > 60 Random Glucose 119 H Calcium 10.0 Phosphorus 2.6 Magnesium 1.5 L Total Bilirubin 1.3 AST 39 H D ALT 21 Alkaline Phosphatase 151 H Total Protein 8.0 Albumin 3.3 L Globulin 4.7 H Albumin/Globulin Ratio 0.7 L Fingerstick Blood Sugar Results: 123 Review of Systems - Review of Systems All systems: reviewed and no additional remarkable complaints except Critical Care Progress Note - Ventilator Checklist Head of Bed 30 Degrees: Yes Daily Sedation Vacation: Yes Daily Assessment of Readiness to Wean: Yes Daily Spontaneous Breathing Trial: Yes PUD Prophalyxis: Yes DVT Prophylaxis: Yes Oral Care with Chlorhexidine Gluconate {CHG}: Yes Assessment/Plan (1) Anemia Current Visit: Yes Status: Acute (2) Cardiac arrest Current Visit: Yes Status: Acute (3) Anoxic encephalopathy Current Visit: Yes Status: Acute - Assessment and Plan (Free Text) Assessment: patient with anoxic encephalopathy no response or response
[2017-09-16] MEDS: Acetaminophen 650mg/20.3ml solution UD NG PRN (02:29)
[2017-09-16] MEDS: Cefepime IV 2 gm in Dextrose 2 GM/100 ML BAG IVPB SCH ×3 (02:30→19:00)
[2017-09-16 07:00] LABS: BASO # 0.1 K/uL (0.0-0.2); BASO % 0.4 % (0.0-2.0); EOS # 0.4 K/uL (0.0-0.7); EOS % 2.2 % (0.0-4.0); HEMATOCRIT 31.4 % (34.0-47.0); LYMPH # 1.9 K/uL (1.0-4.3); LYMPH % 11.7 % (20.0-40.0); MEAN CELL VOLUME 91.1 fL (81.0-99.0); MEAN CORPUSCULAR HEMOGLOBIN 29.2 pg (27.0-31.0); MEAN CORPUSCULAR HGB CONC 32.1 g/dL (33.0-37.0); MEAN PLATELET VOLUME 8.7 fL (7.2-11.7); MONO # 1.3 K/uL (0.0-0.8); MONO % 8.2 % (0.0-10.0); NRBC % 0.1 % (0.0-2.0); RED CELL DISTRIBUTION WIDTH 14.9 % (11.5-14.5); WHITE BLOOD COUNT 16.5 K/uL (4.8-10.8)
[2017-09-16 07:12] LABS: CHLORIDE 95 mmol/L (98-107); POTASSIUM 3.2 mmol/L (3.6-5.2); SODIUM 131 mmol/L (132-148)
[2017-09-16 07:14] LABS: ALB/GLOB RATIO 0.7 (1.0-2.1); AST/SGOT 28 U/L (14-36); BILIRUBIN,TOTAL 1.1 mg/dL (0.2-1.3); CARBON DIOXIDE 26 mmol/L (22-30); GFR AFRICAN-AMERICAN > 60
[2017-09-16 07:15] LABS: ALKALINE PHOSPHATASE 141 U/L (38-126); ALT/SGPT 34 U/L (9-52); BLOOD UREA NITROGEN 12 mg/dL (7-17); CALCIUM 10.3 mg/dl (8.6-10.4); GLUCOSE,RANDOM 106 mg/dL (65-105); MAGNESIUM 1.7 mg/dL (1.6-2.3); PHOSPHOROUS 3.3 mg/dL (2.5-4.5)
--- NOTE | 2017-09-16 08:31 | CP.CCUPN ---
CCU Subjective - Physician Review Events Since Last Encounter (Free Text): 09/16/17 08:26 Patient's overall medical condition remains same. Episodes of tachycardia. On ventilator. Patient condition unchanged Hemoglobin today is stable. Urine output on the slightly low side On ventilator. CCU Objective - Vital Signs / Intake & Output Vital Signs (Last 4 hours): Vital Signs Pulse Resp BP Pulse Ox 09/16/17 07:00 109 H 17 100 09/16/17 06:47 109 H 18 104/61 100 09/16/17 06:00 128 H 21 100 09/16/17 05:51 102/73 09/16/17 05:48 131 H 23 102/73 100 09/16/17 05:00 132 H 17 100 09/16/17 04:47 133 H 17 102/72 100 Intake and Output (Last 8hrs): Intake & Output 09/15/17 09/16/17 09/16/17 23:59 06:59 14:59 Intake Total Output Total Balance Weight Intake: IV Intake, IV Amount Right Distal Port Internal Jugular Right Proximal Port Internal Jugular Tube Feeding Other Output: Urine Urethral (Andino) Stool Emesis - Physical Exam Narrative Physical Exam (Free Text): 09/16/17 08:31 Vital signs reviewed No neck vein distention noted Chest good air entry bilaterally, no wheezing or rales noted CVS regular heart sound, no murmur noted Abdomen soft, nontender. Extremities no pedal edema Patient is comatose Head: Positive for: Atraumatic, Normocephalic Pupils: Positive for: Sluggish Extroacular Muscles: Negative for: EOMI Mouth: Positive for: Moist Mucous Membranes Respiratory/Chest: Positive for: Good Air Exchange, Other (intubated ) Cardiovascular: Positive for: Normal S1, S2, Tachycardic Abdomen: Positive for: Normal Bowel Sounds. Negative for: Distention Upper Extremity: Negative for: Edema Lower Extremity: Negative for: Edema Neurological: Negative for: GCS=15, Speech Normal Skin: Positive for: Normal Color Psychiatric: Negative for: Alert, Oriented x 3 - Medications Active Medications: Active Medications Generic Name Dose Route Start Last Admin Trade Name Freq PRN Reason Stop Dose Admin Acetaminophen 650 mg 09/15/17 03:51 09/16/17 02:29 Tylenol 650mg/20.3ml Solution Ud NG 650 mg Q6 PRN Administration Temperature Artificial Tears 1 gm 08/31/17 12:00 09/06/17 20:10 Lacri-Lube OS 1 gm Q6H PRN Administration Sedation Diltiazem HCl 30 mg 09/16/17 10:00 Cardizem PO TID EUSEBIO Heparin Sodium (Porcine) 5,000 units 09/14/17 12:30 09/15/17 21:23 Heparin SC 5,000 units Q12 EUSEBIO Administration Levetiracetam 1,000 mg/ 110 mls @ 440 mls/hr 09/10/17 06:00 09/16/17 05:51 Dextrose IVPB 440 mls/hr Q12H EUSEBIO Administration Fluconazole 50 mls @ 50 mls/hr 09/15/17 11:30 09/15/17 11:30 Diflucan Iv 100 Mg/50 Ml Ns IVPB 50 mls/hr DAILY EUSEBIO Administration Cefepime HCl 2 gm in 100 mls @ 200 mls/hr 09/15/17 11:00 09/16/17 02:30 Maxipime Iv 2 Gm Premix IVPB 09/20/17 11:01 200 mls/hr Q8H EUSEBIO Administration Metoprolol Tartrate 25 mg 09/13/17 13:00 09/16/17 05:51 Lopressor PO 25 mg Q8H EUSEBIO Administration Midazolam HCl 2 mg 09/10/17 10:52 09/15/17 03:41 Versed Inj IVP 2 mg Q6H PRN Administration Seizure activity Pantoprazole Sodium 40 mg 08/31/17 10:00 09/15/17 09:15 Protonix Inj IVP 40 mg DAILY EUSEBIO Administration Potassium Chloride 20 meq 09/14/17 14:30 09/15/17 09:15 Potassium Chloride Oral Soln PO 20 meq DAILY EUSEBIO Administration Scopolamine 1 patch 09/14/17 22:00 09/14/17 22:23 Transderm-Scop TD 1 patch Q3D EUSEBIO Administration Thiamine HCl 100 mg 08/30/17 22:15 09/15/17 09:15 Vitamin B1 Inj IV 100 mg DAILY EUSEBIO Administration - Patient Studies Lab Studies: Microbiology Studies 09/12/17 18:00 Blood Culture - Preliminary Blood-Venous NO GROWTH AFTER 3 DAYS 09/12/17 18:00 Blood Culture - Preliminary Blood-Venous NO GROWTH AFTER 3 DAYS Lab Studies 11/05/17 11/05/17 Range/Units 06:45 06:45 WBC 16.5 H (4.8-10.8) K/uL RBC 3.45 L (3.80-5.20) Mil/uL Hgb 10.1 L (11.0-16.0) g/dL Hct 31.4 L (34.0-47.0) % MCV 91.1 (81.0-99.0) fL MCH 29.2 (27.0-31.0) pg MCHC 32.1 L (33.0-37.0) g/dL RDW 14.9 H (11.5-14.5) % Plt Count 419 H (130-400) K/uL MPV 8.7 (7.2-11.7) fL Neut % (Auto) 77.5 H (50.0-75.0) % Lymph % (Auto) 11.7 L (20.0-40.0) % [place] % (Auto) 8.2 (0.0-10.0) % Eos % (Auto) 2.2 (0.0-4.0) % Baso % (Auto) 0.4 (0.0-2.0) % Neut # 12.8 H (1.8-7.0) K/uL Lymph # 1.9 (1.0-4.3) K/uL [place] # 1.3 H (0.0-0.8) K/uL Eos # 0.4 (0.0-0.7) K/uL Baso # 0.1 (0.0-0.2) K/uL Sodium 131 L (132-148) mmol/L Potassium 3.2 L (3.6-5.2) mmol/L Chloride 95 L (98-107) mmol/L Carbon Dioxide 26 (22-30) mmol/L Anion Gap 14 (10-20) BUN 12 (7-17) mg/dL Creatinine 0.3 L (0.7-1.2) mg/dL Est GFR ( Amer) > 60 Est GFR (Non-Af Amer) > 60 Random Glucose 106 H (65-105) mg/dL Calcium 10.3 (8.6-10.4) mg/dl Phosphorus 3.3 (2.5-4.5) mg/dL Magnesium 1.7 (1.6-2.3) mg/dL Total Bilirubin 1.1 (0.2-1.3) mg/dL AST 28 (14-36) U/L ALT 34 (9-52) U/L Alkaline Phosphatase 141 H (38-126) U/L Total Protein 8.0 (6.3-8.3) g/dL Albumin 3.3 L (3.5-5.0) g/dL Globulin 4.7 H (2.2-3.9) gm/dL Albumin/Globulin Ratio 0.7 L (1.0-2.1) Laboratory Results - last 24 hr 09/16/17 09/16/17 06:45 06:45 WBC 16.5 H RBC 3.45 L Hgb 10.1 L Hct 31.4 L MCV 91.1 MCH 29.2 MCHC 32.1 L RDW 14.9 H Plt Count 419 H MPV 8.7 Neut % (Auto) 77.5 H Lymph % (Auto) 11.7 L [place] % (Auto) 8.2 Eos % (Auto) 2.2 Baso % (Auto) 0.4 Neut # 12.8 H Lymph # 1.9 [place] # 1.3 H Eos # 0.4 Baso # 0.1 Sodium 131 L Potassium 3.2 L Chloride 95 L Carbon Dioxide 26 Anion Gap 14 BUN 12 Creatinine 0.3 L Est GFR ( Amer) > 60 Est GFR (Non-Af Amer) > 60 Random Glucose 106 H Calcium 10.3 Phosphorus 3.3 Magnesium 1.7 Total Bilirubin 1.1 AST 28 ALT 34 Alkaline Phosphatase 141 H Total Protein 8.0 Albumin 3.3 L Globulin 4.7 H Albumin/Globulin Ratio 0.7 L Fingerstick Blood Sugar Results: 123 Review of Systems - Review of Systems All systems: reviewed and no additional remarkable complaints except Critical Care Progress Note - Ventilator Checklist Head of Bed 30 Degrees: Yes Daily Sedation Vacation: Yes Daily Assessment of Readiness to Wean: Yes Daily Spontaneous Breathing Trial: Yes PUD Prophalyxis: Yes DVT Prophylaxis: Yes Oral Care with Chlorhexidine Gluconate {CHG}: Yes Assessment/Plan (1) Anemia Current Visit: Yes Status: Acute (2) Cardiac arrest Assessment and plan: Patient with a cardiac arrest Anoxic encephalopathy Poor prognosis Awaiting for the family regarding the discussion about the DNR/DNI, also for further management Current Visit: Yes Status: Acute (3) Anoxic encephalopathy Current Visit: Yes Status: Acute
[2017-09-16] MEDS ORDERED: Magnesium Sulfate 1 gm in D5W 1 GM/100 ML BAG IVPB ONE (09:00)
[2017-09-16] MEDS: Potassium Chloride 20 mEq/15 ml LIQ UD PO SCH (09:21)
[2017-09-16] MEDS: Thiamine 100 mg/ml Inj IV SCH (09:23)
[2017-09-16] MEDS: Fluconazole IV 100mg/50 ml NS 50 ML IVPB SCH (09:25)
--- NOTE | 2017-09-16 11:49 | CP.PCM.CON ---
History of Present Illness - History of Present Illness History of Present Illness: 36F w. pmh of anemia and ETOH abuse presented to ED on 08/30 s/p cardiac arrest. Since this time pt has been intubated on mechanical ventilation. remains vented and still spiking intermittently sputum + MSSA and MRSA on admission IV rx adjusted PMH: anemia, EToH abuse PSH: x 3 Meds: MAR reviewed NKDA Social: +ETOH/tobacco, no drugs Fhx: non-contributory Review of Systems - Review of Systems Systems not reviewed;Unavailable: Altered Mental Status, Intubated - Constitutional Constitutional: As Per HPI - EENT Eyes: absent: As Per HPI, Blind Spots, Blurred Vision, Change in Vision, Decreased Night Vision, Diplopia, Discharge, Dry Eye, Exophthalmos, Floaters, Irritation, Itchy Eyes, Loss of Peripheral Vision, Pain, Photophobia, Requires Corrective Lenses, Sees Flashes, Spots in Vision, Tunnel Vision, Other Visual Disturbances, Loss of Vision, Other Ears: absent: As Per HPI, Decreased Hearing, Ear Discharge, Ear Pain, Tinnitus, Abnormal Hearing, Disequilibrium, Dizziness, Other Nose/Mouth/Throat: absent: As Per HPI, Epistaxis, Nasal Congestion, Nasal Discharge, Nasal Obstruction, Nasal Trauma, Nose Pain, Post Nasal Drip, Sinus Pain, Sinus Pressure, Bleeding Gums, Change in Voice, Dental Pain, Dry Mouth, Dysphagia, Halitosis, Hoarsness, Lip Swelling, Mouth Lesions, Mouth Pain, Odynophagia, Sore Throat, Throat Swelling, Tongue Swelling, Facial Pain, Neck Pain, Neck Mass, Other - Breasts Breasts: absent: As Per HPI, Change in Shape, Mass, Pain, Nipple Discharge, Nipple Inversion, Skin Changes, Swelling, Other - Cardiovascular Cardiovascular: As Per HPI - Respiratory Respiratory: As Per HPI - Gastrointestinal Gastrointestinal: absent: As Per HPI, Abdominal Pain, Belching, Bloating, Change in Bowel Habits, Change in Stool Character, Coffee Ground Emesis, Constipation, Cramping, Diarrhea, Dyspepsia, Dysphagia, Early Satiety, Excessive Flatus, Fecal Incontinence, Heartburn, Hematemesis, Hematochezia, Loose Stools, Melena, Nausea, Odynophagia, Temesmus, Vomiting, Other - Genitourinary Genitourinary: absent: As Per HPI, Change in Urinary Stream, Difficulty Urinating, Dysuria, Flank Pain, Hematuria, Pyuria, Nocturia, Urinary Incontinence, Urinary Frequency, Urinary Hesitance, Urinary Urgency, Voiding Freq/Small Amts, Freq UTI, Hx Renal/Bladder Calculi, Hx /Renal Surgery, Bladder Distension, Other - Reproductive: Female Reproductive:Female: absent: As Per HPI, Amenorrhea, Amenorrhea/ Control, Currently Menstual, Cycle <21 Days, Cycle >35 Days, Cycle Variable, Menses 1-7 Days, Menses >/= 8 Days, Menses Variable, Cycle > 4 Weeks Between, No Menses for 6 Months, Heavy Menses, Light Menses, Normal Menses, Spotting Between Cycles , S/P Hysterectomy, Menopausal, Post Menopausal, Premenarche, Abnormal Vaginal Bleeding, Dysmenorrhea, Dyspareunia, Genital Lesions, Genital Pruritis, Pelvic Pain, Prolapse Symptoms, Sexual Dysfunction, Vaginal Discharge, Vaginal Dryness , Vaginal Odor, Vaginal Pruritis, Other - Menstruation Menstruation: absent: As Per HPI, Amenorrhea, Amenorrhea/ Control, Currently Menstual, Cycle <21 Days, Cycle >35 Days, Cycle Variable, Menses 1-7 Days, Menses >/= 8 Days, Menses Variable, Cycle > 4 Weeks Between, No Menses for 6 Months, Heavy Menses, Light Menses, Normal Menses, Spotting Between Cycles , S/P Hysterectomy, Menopausal, Post Menopausal, Premenarche, Abnormal Vaginal Bleeding, Dysmenorrhea, Other - Musculoskeletal Musculoskeletal: absent: As Per HPI, Abnormal Gait, Arthralgias, Atrophy, Back Pain, Deformity, Joint Swelling, Limited Range of Motion, Loss of Height, Muscle Cramps, Muscle Weakness, Myalgias, Neck Pain, Numbness, Radiating Pain into Limb, Stiffness, Tingling, Other - Integumentary Integumentary: absent: As Per HPI, Acne, Alopecia, Bleeding Lesions, Change in Hair, Change in Nails, Change in Pigmentation, Changing Lesions, Dry Skin, Erythema, Furuncle, Hirsutism, Lesions, New Lesions, Non-Healing Lesions, Photosensitivity, Pruritus, Rash, Skin Pain, Skin Ulcer, Sores, Striae, Swelling , Unusual Bruising, Wounds, Jaundice, Other - Neurological Neurological: absent: As Per HPI, Abnormal Gait, Abnormal Hearing, Abnormal Movements, Abnormal Speech, Behavioral Changes, Burning Sensations, Confusion, Convulsions, Disequilibrium, Dizziness, Numbness, Focal Weakness, Frequent Falls , Headaches, Lack of Coordination, Loss of Vision, Memory Loss, Paresthesias, Radicular Pain, Restless Legs, Sensory Deficit, Syncope, Tingling, Tremor, Vertigo, Weakness, Other Visual Disturbances, Other - Psychiatric Psychiatric: absent: As Per HPI, Abnormal Sleep Pattern, Anhedonia, Anxiety, Auditory Hallucinations, Behavioral Changes, Change in Appetite, Change in Libido, Confusion, Depression, Difficulty Concentrating, Hallucinations, Homicidal Ideation, Hopelessness, Irritability, Memory Loss, Mood Swings, Panic Attacks, Paranoia, Suicidal Ideation, Visual Hallucinations, Tactile Hallucinations, Other - Endocrine Endocrine: absent: As Per HPI, Change in Body Appearance, Change in Libido, Cold Intolorance, Deepening of Voice, Excessive Sweating, Fatigue, Flushing, Heat Intolorance, Increase in Ring/Shoe/Hat Size, Palpitations, Polydipsia, Polyphagia, Polyuria, Other - Hematologic/Lymphatic Hematologic: absent: As Per HPI, Easy Bleeding, Easy Bruising, Lymphadenopathy, Other Past Patient History - Infectious Disease Hx of Infectious Diseases: None - Past Medical History & Family History Past Medical History?: Yes - Past Social History Smoking Status: Never Smoked - CARDIAC Hx Cardiac Disorders: No Other/Comment: As per family member : cardiac history of heart going "Fast" - PULMONARY Hx Pneumonia: Yes Other/Comment: smoker - NEUROLOGICAL Hx Neurological Disorder: No - HEENT Hx HEENT Problems: No - RENAL Hx Chronic Kidney Disease: No - ENDOCRINE/METABOLIC Hx Endocrine Disorders: No - HEMATOLOGICAL/ONCOLOGICAL Hx Anemia: Yes - INTEGUMENTARY Hx Dermatological Problems: Yes (HAS MULTIPLE HEALED OPEN LESION TO UPPER ARM, DARKENED SKIN DISCOLOR LLE) Hx Eczema: Yes Other/Comment: H/O OF HAVING HEAD LICE - MUSCULOSKELETAL/RHEUMATOLOGICAL Hx Musculoskeletal Disorders: No Hx Falls: Yes Hx Unsteady Gait: Yes - GASTROINTESTINAL Hx Gastrointestinal Disorders: No (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) HX Swallowing Problems: Yes (SORE THROAT --14) - GENITOURINARY/GYNECOLOGICAL Hx Genitourinary Disorders: Yes (6 ABORTIONS,3 CHILDREN ,H/O OF C SECTIONS X3) Other/Comment: MENORRHAGIA - PSYCHIATRIC Hx Depression: Yes Hx Substance Use: No - SURGICAL HISTORY Hx Section: Yes - ANESTHESIA Hx Anesthesia: Yes Hx Anesthesia Reactions: No Hx Malignant Hyperthermia: No Meds Allergies/Adverse Reactions: Allergies Allergy/AdvReac Type Severity Reaction Status Date / Time PORK Allergy NAUSEA Verified 01/05/17 11:15 tomato Allergy NAUSEA Verified 01/05/17 11:17 wheat Allergy NAUSEA Verified 01/05/17 11:16 - Medications Medications: Current Medications Acetaminophen (Tylenol 650mg/20.3ml Solution Ud) 650 mg NG Q6 PRN PRN Reason: Temperature Last Admin: 09/16/17 02:29 Dose: 650 mg Artificial Tears (Lacri-Lube) 1 gm OS Q6H PRN PRN Reason: Sedation Last Admin: 09/06/17 20:10 Dose: 1 gm Diltiazem HCl (Cardizem) 30 mg PO TID [facility] Last Admin: 09/16/17 09:23 Dose: 30 mg Heparin Sodium (Porcine) (Heparin) 5,000 units SC Q12 [facility] Last Admin: 09/16/17 09:22 Dose: 5,000 units Levetiracetam 1,000 mg/ (Dextrose) 110 mls @ 440 mls/hr IVPB Q12H [facility] Last Admin: 09/16/17 05:51 Dose: 440 mls/hr Fluconazole (Diflucan Iv 100 Mg/50 Ml Ns) 50 mls @ 50 mls/hr IVPB DAILY [facility] Last Admin: 09/16/17 09:25 Dose: 50 mls/hr Cefepime HCl (Maxipime Iv 2 Gm Premix) 2 gm in 100 mls @ 200 mls/hr IVPB Q8H [facility] Stop: 09/20/17 11:01 Last Admin: 09/16/17 10:39 Dose: 200 mls/hr Metoprolol Tartrate (Lopressor) 25 mg PO Q8H [facility] Last Admin: 09/16/17 05:51 Dose: 25 mg Midazolam HCl (Versed Inj) 2 mg IVP Q6H PRN PRN Reason: Seizure activity Last Admin: 09/15/17 03:41 Dose: 2 mg Pantoprazole Sodium (Protonix Inj) 40 mg IVP DAILY [facility] Last Admin: 09/16/17 09:25 Dose: 40 mg Potassium Chloride (Potassium Chloride Oral Soln) 20 meq PO DAILY [facility] Last Admin: 09/16/17 09:21 Dose: 20 meq Scopolamine (Transderm-Scop) 1 patch TD Q3D [facility] Last Admin: 09/14/17 22:23 Dose: 1 patch Thiamine HCl (Vitamin B1 Inj) 100 mg IV DAILY [facility] Last Admin: 09/16/17 09:23 Dose: 100 mg Physical Exam - Constitutional Appears: Non-toxic, Confused, Cachectic, Chronically Ill - Head Exam Head Exam: NORMOCEPHALIC - Eye Exam Eye Exam: PERRL. absent: Scleral icterus - ENT Exam ENT Exam: Mucous Membranes Dry - Neck Exam Neck exam: Negative for: Lymphadenopathy - Respiratory Exam Respiratory Exam: Decreased Breath Sounds - Cardiovascular Exam Cardiovascular Exam: REGULAR RHYTHM - GI/Abdominal Exam GI & Abdominal Exam: Diminished Bowel Sounds, Soft. absent: Tenderness - Rectal Exam Rectal Exam: Deferred - Exam Exam: NORMAL INSPECTION - Extremities Exam Extremities exam: Negative for: pedal edema - Back Exam Back exam: absent: CVA tenderness (L), CVA tenderness (R) - Neurological Exam Neurological exam: Altered - Skin Skin Exam: Dry Results - Vital Signs Recent Vital Signs: Last Vital Signs Temp 99.8 F H 09/16/17 04:00 Pulse 124 H 09/16/17 10:00 Resp 20 09/16/17 10:00 BP 105/74 09/16/17 09:47 Pulse Ox 100 09/16/17 10:00 - Labs Result Diagrams: 09/16/17 06:45 09/16/17 06:45 Labs: Laboratory Results - last 24 hr 09/16/17 09/16/17 06:45 06:45 WBC 16.5 H RBC 3.45 L Hgb 10.1 L Hct 31.4 L MCV 91.1 MCH 29.2 MCHC 32.1 L RDW 14.9 H Plt Count 419 H MPV 8.7 Neut % (Auto) 77.5 H Lymph % (Auto) 11.7 L [place] % (Auto) 8.2 Eos % (Auto) 2.2 Baso % (Auto) 0.4 Neut # 12.8 H Lymph # 1.9 [place] # 1.3 H Eos # 0.4 Baso # 0.1 Sodium 131 L Potassium 3.2 L Chloride 95 L Carbon Dioxide 26 Anion Gap 14 BUN 12 Creatinine 0.3 L Est GFR ( Amer) > 60 Est GFR (Non-Af Amer) > 60 Random Glucose 106 H Calcium 10.3 Phosphorus 3.3 Magnesium 1.7 Total Bilirubin 1.1 AST 28 ALT 34 Alkaline Phosphatase 141 H Total Protein 8.0 Albumin 3.3 L Globulin 4.7 H Albumin/Globulin Ratio 0.7 L Assessment & Plan (1) Anemia Status: Acute (2) Anoxic encephalopathy Status: Acute (3) Cardiac arrest Status: Acute (4) Hypokalemia Status: Acute (5) Alcohol abuse Status: Acute (6) Chest pain Status: Acute - Assessment and Plan (Free Text) Assessment: will reculture blood and sputum pauline Yeager
--- NOTE | 2017-09-16 12:12 | CP.PCM.PN ---
Subjective - Date & Time of Evaluation Date of Evaluation: 09/16/17 Time of Evaluation: 12:05 - Subjective Subjective: Progress note dictated #[id number] Objective - Vital Signs/Intake and Output Vital Signs (last 24 hours): Temp Pulse Resp BP Pulse Ox 99.8 F H 124 H 20 105/74 100 09/16/17 04:00 09/16/17 10:00 09/16/17 10:00 09/16/17 09:47 09/16/17 10:00 Intake and Output: 09/16/17 09/16/17 06:59 18:59 Intake Total 440 Output Total 130 Balance 310 - Medications Medications: Current Medications Acetaminophen (Tylenol 650mg/20.3ml Solution Ud) 650 mg NG Q6 PRN PRN Reason: Temperature Last Admin: 09/16/17 02:29 Dose: 650 mg Artificial Tears (Lacri-Lube) 1 gm OS Q6H PRN PRN Reason: Sedation Last Admin: 09/06/17 20:10 Dose: 1 gm Diltiazem HCl (Cardizem) 30 mg PO TID [facility] Last Admin: 09/16/17 09:23 Dose: 30 mg Heparin Sodium (Porcine) (Heparin) 5,000 units SC Q12 [facility] Last Admin: 09/16/17 09:22 Dose: 5,000 units Levetiracetam 1,000 mg/ (Dextrose) 110 mls @ 440 mls/hr IVPB Q12H [facility] Last Admin: 09/16/17 05:51 Dose: 440 mls/hr Fluconazole (Diflucan Iv 100 Mg/50 Ml Ns) 50 mls @ 50 mls/hr IVPB DAILY [facility] Last Admin: 09/16/17 09:25 Dose: 50 mls/hr Cefepime HCl (Maxipime Iv 2 Gm Premix) 2 gm in 100 mls @ 200 mls/hr IVPB Q8H [facility] Stop: 09/20/17 11:01 Last Admin: 09/16/17 10:39 Dose: 200 mls/hr Vancomycin/Sodium Chloride (Vancomycin 1 Gm/Ns 200 Ml) 1 gm in 200 mls @ 133.333 mls/hr IVPB Q12H [facility] Stop: 09/21/17 13:01 Metoprolol Tartrate (Lopressor) 25 mg PO Q8H [facility] Last Admin: 09/16/17 05:51 Dose: 25 mg Midazolam HCl (Versed Inj) 2 mg IVP Q6H PRN PRN Reason: Seizure activity Last Admin: 09/15/17 03:41 Dose: 2 mg Pantoprazole Sodium (Protonix Inj) 40 mg IVP DAILY [facility] Last Admin: 09/16/17 09:25 Dose: 40 mg Potassium Chloride (Potassium Chloride Oral Soln) 20 meq PO DAILY [facility] Last Admin: 09/16/17 09:21 Dose: 20 meq Scopolamine (Transderm-Scop) 1 patch TD Q3D [facility] Last Admin: 09/14/17 22:23 Dose: 1 patch Thiamine HCl (Vitamin B1 Inj) 100 mg IV DAILY [facility] Last Admin: 09/16/17 09:23 Dose: 100 mg - Labs Labs: 09/16/17 06:45 09/16/17 06:45 PT 14.4 SECONDS (9.7-12.2) H 08/30/17 19:30 INR 1.3 08/30/17 19:30 APTT 28 SECONDS (21-34) 08/30/17 19:30
[2017-09-16] MEDS: Vancomycin 1 gm/NS 200 ml 1 GM/200 ML BAG IVPB SCH (12:42)
--- NOTE | 2017-09-16 14:37 | RAD ---
HISTORY: vent COMPARISON: Chest x-ray performed 09/14/17 TECHNIQUE: Chest, one view. FINDINGS: Endotracheal tube tip terminates approximately 4.9 cm above the julieth. Nasogastric tube extends expected location of the stomach. Right IJ approach central venous catheter extends to the right atrium. Numerous external wires and leads obscure evaluation of the underlying parenchyma. LUNGS: Mild pulmonary venous congestion. Mild left basilar atelectasis or infiltrate. Please note that chest x-ray has limited sensitivity for the detection of pulmonary masses. PLEURA: No significant pleural effusion identified. No definite pneumothorax . CARDIOVASCULAR: Heart size appears within normal limits. OSSEOUS STRUCTURES: No acute osseous abnormality identified. VISUALIZED UPPER ABDOMEN: Unremarkable. OTHER FINDINGS: None. IMPRESSION: Endotracheal tube tip terminates approximately 4.9 cm above the julieth. Nasogastric tube extends expected location of the stomach. Right IJ approach central venous catheter extends to the right atrium. Mild pulmonary venous congestion. Left basilar atelectasis or infiltrate.
--- NOTE | 2017-09-16 16:13 | PN ---
DATE: 09/16/2017 SUBJECTIVE: The patient is seen and examined at bedside. The patient's mental status remains the same, remains intubated, having involuntary eye movement and muscle twitching and involuntary movements of the upper and lower extremities noted. PHYSICAL EXAMINATION: VITAL SIGNS: Blood pressure 102/78, pulse 126, temperature 98 degrees Fahrenheit, T-max 101.2, respirations 21 to 22 on 40% FiO2 mechanical ventilation, tidal volume 450, sed rate 10 and PEEP of 5. Intake is 1940 mL, output 785. HEENT: Pupils sluggishly reacting to light, no icterus, positive pallor. ET tube and gastric tube in the oral cavity with copious amount of secretions noted. NECK: Supple. LUNGS: Bilateral vesicular breath sounds. Bilateral basal crackles. CARDIOVASCULAR: S1 and S2 present, regular, tachycardic. ABDOMEN: Soft and nontender. Bowel sounds present. CENTRAL NERVOUS SYSTEM: Sedated and intubated. Involuntary movements of the eyelids and upper and lower extremities. Not responding to the painful stimuli or verbal stimuli. EXTREMITIES: No edema. MEDICATIONS: Include Tylenol as needed, artificial tears, cefepime 2 g IV q. 8 hours, Cardizem 30 mg p.o. t.i.d., Diflucan 100 mg IV daily, heparin 5000 units subcutaneous q. 12 hours, Keppra 1 g IV q. 12 hours, Lopressor 25 mg p.o. q. 8 hours, Versed 2 mg IV q. 6 hours, Protonix 40 mg IV push daily, KCl 20 mEq daily, thiamine 100 mg daily and vancomycin 1 g IV q. 12 hours. LABORATORY DATA: Labs done from this morning; WBC 16.5, hemoglobin 10.1, hematocrit 31.4 and platelets 419. Sodium 131, potassium 3.2, chloride 95, bicarbonate 26, BUN 12, creatinine 0.3, glucose 106, calcium 10.3, phosphorus 3.3, magnesium 1.7, AST 28, ALT 34, alkaline phosphatase 141, total protein 8.0 and albumin 3.3. ASSESSMENT AND PLAN: Young female with alcohol abuse, substance abuse, chronic back problems, status post surgery, wheelchair bound, admitted with status post cardiac arrest, ventilator dependent, respiratory failure, anoxic encephalopathy, anemia, status post multiple packed red blood cells transfusions, multiple electrolyte abnormalities, now with hypokalemia and hypomagnesemia. The patient is being given supplementation. Sepsis with sinus tachycardia, sputum showing Staphylococcus aureus and urinary tract infection. We will continue with ventilator support for possible tracheostomy and PEG in a.m. Mental status remains the same. Remains sinus tachycardic. Cardizem is being added in addition to metoprolol. We will try fluid challenge. Continue with cefepime and Diflucan. Vancomycin has been added by infectious disease. Infectious disease input appreciated. Continue with gastrointestinal and deep venous thrombosis prophylaxis. We will follow up with surgery. Awaiting for ethics consult from Dr. Miranda. Follow up with palliative care and social and human services assistant. The patient's condition is critical and prognosis is guarded. Phoenix Caballero MD
[2017-09-17] MEDS: Acetaminophen 650mg/20.3ml solution UD NG PRN (00:35)
[2017-09-17] MEDS: Vancomycin 1 gm/NS 200 ml 1 GM/200 ML BAG IVPB SCH ×4 (00:35→20:56)
[2017-09-17] MEDS: Cefepime IV 2 gm in Dextrose 2 GM/100 ML BAG IVPB SCH ×3 (03:38→19:00)
[2017-09-17 06:25] LABS: BASO # 0.1 K/uL (0.0-0.2); BASO % 0.6 % (0.0-2.0); EOS # 0.3 K/uL (0.0-0.7); EOS % 1.9 % (0.0-4.0); HEMATOCRIT 30.2 % (34.0-47.0); LYMPH # 1.8 K/uL (1.0-4.3); MEAN CELL VOLUME 89.2 fL (81.0-99.0); MEAN CORPUSCULAR HEMOGLOBIN 29.6 pg (27.0-31.0); MEAN CORPUSCULAR HGB CONC 33.2 g/dL (33.0-37.0); MEAN PLATELET VOLUME 8.7 fL (7.2-11.7); MONO # 0.9 K/uL (0.0-0.8); RED CELL DISTRIBUTION WIDTH 14.8 % (11.5-14.5)
[2017-09-17 06:38] LABS: ALB/GLOB RATIO 0.7 (1.0-2.1); ALKALINE PHOSPHATASE 126 U/L (38-126); ALT/SGPT 26 U/L (9-52); AST/SGOT 29 U/L (14-36); BLOOD UREA NITROGEN 13 mg/dL (7-17); CALCIUM 10.1 mg/dl (8.6-10.4); CARBON DIOXIDE 27 mmol/L (22-30); CHLORIDE 95 mmol/L (98-107); GFR AFRICAN-AMERICAN > 60; GLUCOSE,RANDOM 114 mg/dL (65-105); MAGNESIUM 1.6 mg/dL (1.6-2.3); PHOSPHOROUS 3.3 mg/dL (2.5-4.5); POTASSIUM 3.2 mmol/L (3.6-5.2); SODIUM 131 mmol/L (132-148); TOTAL PROTEIN 7.4 g/dL (6.3-8.3)
[2017-09-17] MEDS ORDERED: Sodium Chloride 0.9% 500 ML IV ONE (08:15)
[2017-09-17] MEDS ORDERED: Metoprolol 1 mg/ml Inj IVP ONE (08:17)
[2017-09-17] MEDS: Potassium Chloride 20 mEq/15 ml LIQ UD PO SCH (09:01)
[2017-09-17] MEDS: Thiamine 100 mg/ml Inj IV SCH (09:02)
[2017-09-17] MEDS: Fluconazole IV 100mg/50 ml NS 50 ML IVPB SCH (09:06)
--- NOTE | 2017-09-17 09:49 | PN ---
DATE: 09/17/2017 NEUROLOGIC PROBLEM: Status post anoxic encephalopathy with status epilepticus. PHYSICAL EXAMINATION: VITAL SIGNS: Blood pressure 112/85, mean arterial pressure 94, respiratory rate 21, temperature afebrile with pulse rate of 122. The patient is comatose, rhythmic, blinking movement of eyes as well as consistent with status epilepticus. The patient has been on dual antiepileptic drugs. Consistent seizures, which cannot be resolvable at this point. CT of the head did not convince evidence of anoxic encephalopathy in the previous studies. I would like to repeat the CT of the head today. The patient will be followed. Emory Pugh MD MTDD
--- NOTE | 2017-09-17 10:28 | CP.PCM.PN ---
Subjective - Date & Time of Evaluation Date of Evaluation: 09/17/17 Time of Evaluation: 08:00 - Subjective Subjective: seen in ICU unresponsive/ encephalopathic intubated / NAD Objective - Vital Signs/Intake and Output Vital Signs (last 24 hours): Temp Pulse Resp BP Pulse Ox 99.1 F 125 H 21 104/65 100 09/17/17 08:00 09/17/17 08:00 09/17/17 08:00 09/17/17 07:48 09/17/17 07:48 Intake and Output: 09/17/17 09/17/17 06:59 18:59 Intake Total 835 170 Output Total 310 60 Balance 525 110 - Medications Medications: Current Medications Acetaminophen (Tylenol 650mg/20.3ml Solution Ud) 650 mg NG Q6 PRN PRN Reason: Temperature Last Admin: 09/17/17 00:35 Dose: 650 mg Artificial Tears (Lacri-Lube) 1 gm OS Q6H PRN PRN Reason: Sedation Last Admin: 09/06/17 20:10 Dose: 1 gm Diltiazem HCl (Cardizem) 30 mg PO TID [facility] Last Admin: 09/17/17 09:01 Dose: 30 mg Heparin Sodium (Porcine) (Heparin) 5,000 units SC Q12 [facility] Last Admin: 09/17/17 09:02 Dose: 5,000 units Levetiracetam 1,000 mg/ (Dextrose) 110 mls @ 440 mls/hr IVPB Q12H [facility] Last Admin: 09/17/17 05:07 Dose: 440 mls/hr Fluconazole (Diflucan Iv 100 Mg/50 Ml Ns) 50 mls @ 50 mls/hr IVPB DAILY [facility] Last Admin: 09/17/17 09:06 Dose: 50 mls/hr Cefepime HCl (Maxipime Iv 2 Gm Premix) 2 gm in 100 mls @ 200 mls/hr IVPB Q8H [facility] Stop: 09/20/17 11:01 Last Admin: 09/17/17 03:38 Dose: 200 mls/hr Vancomycin/Sodium Chloride (Vancomycin 1 Gm/Ns 200 Ml) 1 gm in 200 mls @ 133.333 mls/hr IVPB Q12H [facility] Stop: 09/21/17 13:01 Last Admin: 09/17/17 00:35 Dose: 133.333 mls/hr Lorazepam (Ativan) 2 mg IVP Q6H PRN PRN Reason: Agitation Metoprolol Tartrate (Lopressor) 25 mg PO Q8H [facility] Last Admin: 09/17/17 05:07 Dose: 25 mg Pantoprazole Sodium (Protonix Inj) 40 mg IVP DAILY [facility] Last Admin: 09/17/17 09:03 Dose: 40 mg Potassium Chloride (Potassium Chloride Oral Soln) 20 meq PO DAILY [facility] Last Admin: 09/17/17 09:01 Dose: 20 meq Scopolamine (Transderm-Scop) 1 patch TD Q3D [facility] Last Admin: 09/14/17 22:23 Dose: 1 patch Thiamine HCl (Vitamin B1 Inj) 100 mg IV DAILY [facility] Last Admin: 09/17/17 09:02 Dose: 100 mg - Labs Labs: 09/17/17 06:13 09/17/17 06:13 PT 14.4 SECONDS (9.7-12.2) H 08/30/17 19:30 INR 1.3 08/30/17 19:30 APTT 28 SECONDS (21-34) 08/30/17 19:30 - Constitutional Appears: No Acute Distress, Confused, Chronically Ill - Head Exam Head Exam: NORMOCEPHALIC - Eye Exam Eye Exam: absent: Scleral icterus - ENT Exam ENT Exam: Mucous Membranes Dry - Neck Exam Neck Exam: absent: Lymphadenopathy - Respiratory Exam Respiratory Exam: Decreased Breath Sounds, Rhonchi - Cardiovascular Exam Cardiovascular Exam: REGULAR RHYTHM, +S1, +S2 - GI/Abdominal Exam GI & Abdominal Exam: Distended, Soft - Rectal Exam Rectal Exam: Deferred - Exam Exam: NORMAL INSPECTION - Extremities Exam Extremities Exam: absent: Pedal Edema - Back Exam Back Exam: absent: CVA tenderness (L), CVA tenderness (R), paraspinal tenderness - Neurological Exam Neurological Exam: Altered - Skin Skin Exam: Dry Assessment and Plan (1) Anemia Status: Acute (2) Anoxic encephalopathy Status: Acute (3) Cardiac arrest Status: Acute (4) Hypokalemia Status: Acute (5) Alcohol abuse Status: Acute (6) Chest pain Status: Acute - Assessment and Plan (Free Text) Assessment: cont empiric IV antibiotics recultured yesterday Plan: poor prognosis
[2017-09-17] MEDS: Fluconazole IV 200mg/100 ml NS 100 ML IVPB SCH (10:42)
--- NOTE | 2017-09-17 11:20 | CP.PCM.PN ---
Subjective - Date & Time of Evaluation Date of Evaluation: 09/17/17 Time of Evaluation: 10:50 - Subjective Subjective: Progress note dictated #[id number] Objective - Vital Signs/Intake and Output Vital Signs (last 24 hours): Temp Pulse Resp BP Pulse Ox 99.1 F 128 H 27 H 118/74 98 09/17/17 08:00 09/17/17 10:00 09/17/17 10:00 09/17/17 09:47 09/17/17 10:00 Intake and Output: 09/17/17 09/17/17 06:59 18:59 Intake Total 835 100 Output Total 310 100 Balance 525 0 - Medications Medications: Current Medications Acetaminophen (Tylenol 650mg/20.3ml Solution Ud) 650 mg NG Q6 PRN PRN Reason: Temperature Last Admin: 09/17/17 00:35 Dose: 650 mg Artificial Tears (Lacri-Lube) 1 gm OS Q6H PRN PRN Reason: Sedation Last Admin: 09/06/17 20:10 Dose: 1 gm Diltiazem HCl (Cardizem) 30 mg PO TID REPLACED BY [facility] Last Admin: 09/17/17 09:01 Dose: 30 mg Heparin Sodium (Porcine) (Heparin) 5,000 units SC Q12 REPLACED BY [facility] Last Admin: 09/17/17 09:02 Dose: 5,000 units Levetiracetam 1,000 mg/ (Dextrose) 110 mls @ 440 mls/hr IVPB Q12H REPLACED BY [facility] Last Admin: 09/17/17 05:07 Dose: 440 mls/hr Cefepime HCl (Maxipime Iv 2 Gm Premix) 2 gm in 100 mls @ 200 mls/hr IVPB Q8H REPLACED BY [facility] Stop: 09/20/17 11:01 Last Admin: 09/17/17 11:15 Dose: 200 mls/hr Vancomycin/Sodium Chloride (Vancomycin 1 Gm/Ns 200 Ml) 1 gm in 200 mls @ 133.333 mls/hr IVPB Q12H REPLACED BY [facility] Stop: 09/21/17 13:01 Last Admin: 09/17/17 00:35 Dose: 133.333 mls/hr Fluconazole (Diflucan Iv 200 Mg/100 Ml Ns) 100 mls @ 100 mls/hr IVPB DAILY REPLACED BY [facility] Last Admin: 09/17/17 10:42 Dose: Not Given Lorazepam (Ativan) 2 mg IVP Q6H PRN PRN Reason: Agitation Last Admin: 09/17/17 11:16 Dose: 2 mg Metoprolol Tartrate (Lopressor) 25 mg PO Q8H REPLACED BY [facility] Last Admin: 09/17/17 05:07 Dose: 25 mg Pantoprazole Sodium (Protonix Inj) 40 mg IVP DAILY REPLACED BY [facility] Last Admin: 09/17/17 09:03 Dose: 40 mg Potassium Chloride (Potassium Chloride Oral Soln) 20 meq PO DAILY REPLACED BY [facility] Last Admin: 09/17/17 09:01 Dose: 20 meq Scopolamine (Transderm-Scop) 1 patch TD Q3D REPLACED BY [facility] Last Admin: 09/14/17 22:23 Dose: 1 patch Thiamine HCl (Vitamin B1 Inj) 100 mg IV DAILY REPLACED BY [facility] Last Admin: 09/17/17 09:02 Dose: 100 mg - Labs Labs: 09/17/17 06:13 09/17/17 06:13 PT 14.4 SECONDS (9.7-12.2) H 08/30/17 19:30 INR 1.3 08/30/17 19:30 APTT 28 SECONDS (21-34) 08/30/17 19:30
--- NOTE | 2017-09-17 13:38 | CP.CCUPN ---
<Liset Massey - Last Filed: 09/17/17 16:05> CCU Subjective - Physician Review Subjective (Free Text): Patient seen and examined at bedside. Patient currently intubated. ROS unobtainable due to patient's current clinical status. Patient's daughter spoken to over the phone who continues to want to do everything for patient. Additionally daughter does not want any information to be told to patient's mother as she has many psychiatric issues and is not able to understand many aspects of the patient's prognosis. Daughter considering patient's transfer to [facility]. 09/17/17 13:35 CCU Objective - Vital Signs / Intake & Output Vital Signs (Last 4 hours): Vital Signs Pulse Resp BP Pulse Ox 09/17/17 13:10 105/85 09/17/17 10:00 128 H 27 H 98 09/17/17 09:47 127 H 24 118/74 97 Intake and Output (Last 8hrs): Intake & Output 09/16/17 09/17/17 09/17/17 22:59 06:59 14:59 Intake Total 330 680 100 Output Total 245 235 100 Balance 85 445 0 Weight 145 lb Intake: Intake, IV Amount 400 100 Right Internal Jugular 400 100 Oral 50 Tube Feeding 280 280 0 Output: Urine 185 235 100 Urethral (Andino) 185 235 100 Stool 60 Emesis 0 0 Other: # Bowel Movements 0 0 - Physical Exam Head: Positive for: Atraumatic, Normocephalic Pupils: Positive for: Sluggish Extroacular Muscles: Negative for: EOMI Mouth: Positive for: Moist Mucous Membranes Respiratory/Chest: Positive for: Good Air Exchange, Other (intubated ) Cardiovascular: Positive for: Normal S1, S2, Tachycardic Abdomen: Positive for: Normal Bowel Sounds. Negative for: Distention Upper Extremity: Negative for: Edema Lower Extremity: Negative for: Edema Neurological: Negative for: GCS=15, Speech Normal Skin: Positive for: Normal Color Psychiatric: Negative for: Alert, Oriented x 3 - Medications Active Medications: Active Medications Generic Name Dose Route Start Last Admin Trade Name Freq PRN Reason Stop Dose Admin Acetaminophen 650 mg 09/15/17 03:51 09/17/17 00:35 Tylenol 650mg/20.3ml Solution Ud NG 650 mg Q6 PRN Administration Temperature Artificial Tears 1 gm 08/31/17 12:00 09/06/17 20:10 Lacri-Lube OS 1 gm Q6H PRN Administration Sedation Diltiazem HCl 30 mg 09/16/17 10:00 09/17/17 13:10 Cardizem PO 30 mg TID EUSEBIO Administration Heparin Sodium (Porcine) 5,000 units 09/14/17 12:30 09/17/17 09:02 Heparin SC 5,000 units Q12 EUSEBIO Administration Levetiracetam 1,000 mg/ 110 mls @ 440 mls/hr 09/10/17 06:00 09/17/17 05:07 Dextrose IVPB 440 mls/hr Q12H EUSEBIO Administration Cefepime HCl 2 gm in 100 mls @ 200 mls/hr 09/15/17 11:00 09/17/17 11:15 Maxipime Iv 2 Gm Premix IVPB 09/20/17 11:01 200 mls/hr Q8H EUSEBIO Administration Vancomycin/Sodium Chloride 1 gm in 200 mls @ 133.333 mls/hr 09/16/17 13:00 13:13 Vancomycin 1 Gm/Ns 200 Ml IVPB 09/21/17 13:01 133.333 mls/hr Q12H EUSEBIO Administration Fluconazole 100 mls @ 100 mls/hr 09/17/17 10:30 09/17/17 10:42 Diflucan Iv 200 Mg/100 Ml Ns IVPB Not Given DAILY EUSEBIO Lorazepam 2 mg 09/17/17 09:59 09/17/17 11:16 Ativan IVP 2 mg Q6H PRN Administration Agitation Metoprolol Tartrate 25 mg 09/13/17 13:00 09/17/17 13:10 Lopressor PO 25 mg Q8H EUSEBIO Administration Pantoprazole Sodium 40 mg 08/31/17 10:00 09/17/17 09:03 Protonix Inj IVP 40 mg DAILY EUSEBIO Administration Potassium Chloride 20 meq 09/14/17 14:30 09/17/17 09:01 Potassium Chloride Oral Soln PO 20 meq DAILY EUSEBIO Administration Scopolamine 1 patch 09/14/17 22:00 09/14/17 22:23 Transderm-Scop TD 1 patch Q3D EUSEBIO Administration Thiamine HCl 100 mg 08/30/17 22:15 09/17/17 09:02 Vitamin B1 Inj IV 100 mg DAILY EUSEBIO Administration - Patient Studies Lab Studies: Microbiology Studies 09/12/17 18:00 Blood Culture - Preliminary Blood-Venous NO GROWTH AFTER 4 DAYS 09/12/17 18:00 Blood Culture - Preliminary Blood-Venous NO GROWTH AFTER 4 DAYS Lab Studies 09/17/17 09/17/17 Range/Units 06:13 06:13 WBC 18.0 H (4.8-10.8) K/uL RBC 3.38 L (3.80-5.20) Mil/uL Hgb 10.0 L (11.0-16.0) g/dL Hct 30.2 L (34.0-47.0) % MCV 89.2 (81.0-99.0) fL MCH 29.6 (27.0-31.0) pg MCHC 33.2 (33.0-37.0) g/dL RDW 14.8 H (11.5-14.5) % Plt Count 456 H (130-400) K/uL MPV 8.7 (7.2-11.7) fL Neut % (Auto) 82.5 H (50.0-75.0) % Lymph % (Auto) 10.0 L (20.0-40.0) % [place] % (Auto) 5.0 (0.0-10.0) % Eos % (Auto) 1.9 (0.0-4.0) % Baso % (Auto) 0.6 (0.0-2.0) % Neut # 14.8 H (1.8-7.0) K/uL Lymph # 1.8 (1.0-4.3) K/uL [place] # 0.9 H (0.0-0.8) K/uL Eos # 0.3 (0.0-0.7) K/uL Baso # 0.1 (0.0-0.2) K/uL Sodium 131 L (132-148) mmol/L Potassium 3.2 L (3.6-5.2) mmol/L Chloride 95 L (98-107) mmol/L Carbon Dioxide 27 (22-30) mmol/L Anion Gap 12 (10-20) BUN 13 (7-17) mg/dL Creatinine 0.3 L (0.7-1.2) mg/dL Est GFR ( Amer) > 60 Est GFR (Non-Af Amer) > 60 Random Glucose 114 H (65-105) mg/dL Calcium 10.1 (8.6-10.4) mg/dl Phosphorus 3.3 (2.5-4.5) mg/dL Magnesium 1.6 (1.6-2.3) mg/dL Total Bilirubin 1.0 (0.2-1.3) mg/dL AST 29 (14-36) U/L ALT 26 (9-52) U/L Alkaline Phosphatase 126 (38-126) U/L Total Protein 7.4 (6.3-8.3) g/dL Albumin 3.1 L (3.5-5.0) g/dL Globulin 4.3 H (2.2-3.9) gm/dL Albumin/Globulin Ratio 0.7 L (1.0-2.1) Beta HCG, Quant < 2.39 mIU/ML Laboratory Results - last 24 hr 09/17/17 09/17/17 06:13 06:13 WBC 18.0 H RBC 3.38 L Hgb 10.0 L Hct 30.2 L MCV 89.2 MCH 29.6 MCHC 33.2 RDW 14.8 H Plt Count 456 H MPV 8.7 Neut % (Auto) 82.5 H Lymph % (Auto) 10.0 L [place] % (Auto) 5.0 Eos % (Auto) 1.9 Baso % (Auto) 0.6 Neut # 14.8 H Lymph # 1.8 [place] # 0.9 H Eos # 0.3 Baso # 0.1 Sodium 131 L Potassium 3.2 L Chloride 95 L Carbon Dioxide 27 Anion Gap 12 BUN 13 Creatinine 0.3 L Est GFR ( Amer) > 60 Est GFR (Non-Af Amer) > 60 Random Glucose 114 H Calcium 10.1 Phosphorus 3.3 Magnesium 1.6 Total Bilirubin 1.0 AST 29 ALT 26 Alkaline Phosphatase 126 Total Protein 7.4 Albumin 3.1 L Globulin 4.3 H Albumin/Globulin Ratio 0.7 L Beta HCG, Quant < 2.39 Fingerstick Blood Sugar Results: 123 Review of Systems - Review of Systems Systems not reviewed;Unavailable: Intubated Assessment/Plan - Assessment and Plan (Free Text) Assessment: 36 year old female with past medical history of anemia and alcohol abuse, who was found unconscious by . EMS was called and patient was found to be in Asystole, ACLS protocol was initiated and 2 rounds of epinephrine and then ROSC. Patient was unconscious in the ED. Subsequently, patient was admitted to the ICU and hypothermia protocol was initiated. Plan: Neuro: Intubated, Acute seizures Neurologist, Dr. Pugh---> help appreciated * Management as per recommendation Medication/Management: * Keppra 500mg IV Q12H * Versed PRN * Propofol (Titratable) Imaging: * EEG (08/31/17): globally abnormal EEG because of persistent spike and wave activities consistent with status epilepticus. Please correlate the findings with neurological and radiological studies * Cerebral blood flow (09/03/17): does not conform to nuclear medicine diagnosis of brain . There is a faint cerebral flow, the study is considered technically suboptimal for reasons related to technique and poor visualization of carotid arteries. * CT head w/o contrast (09/03/17): No mass effect or edema. No atrophy or chronic microvascular. * EEG (09/06): status epilepticus * head CT (09/12/17): asymmetric low attenuation in the L basal ganglia could represent anoxic injury. Mild global parenchymal volume loss, advanced for the patient's age. Cardio: Cardiopulmonary Arrest, tachycardia Management: * Intubated * Hypothermia protocol was initiated * Lopressor 25mg po q8h * Cardizem drip started (09/17) Pulm: Respiratory distress secondary to cardiac arrest Management: * Intubated * sputum culture: staph * D Dimer: [id number] * CTA: no evidence of PE, bibasilar consolidation. Upper lobe interstitial infiltrates. * Dr. Dockery consulted for trach evaluation, patient unstable with tachycardia, unable to get trach GI: Diarrhea * C. Dif negative (09/03) * f/u repeat C. dif * PEG placement by Dr. Dockery for Sunday, patient unstable with tachycardia , unable to get PEG Renal: Electrolyte imbalance Nephrology, Dr. Ramos---> Help appreciated * Management as per recommendation * electrolytes repleted as needed * KCl 20mEq daily Heme: anemia * H/H: 09/12 dropped to 7.3/22.5 from 8.1/24.5- patient was transfused 2 u PRBCs * H/H:30.2 on 09/17 ID: * urine: yeast * sputum: staph aureus * Cefepime 2gm q8h (started on 09/15) * Vancomycin 1gm q12h * f/u repeat cultures Psych: Alcohol abuse disorder * Thiamine 100mg IV daily Prophylaxis measures: * R IJ in place * DVT: SCDs, Heparin 5,000units SC Q12H * GI: Protonix 40mg IV daily * tube feeds: jevity 20cc/hr <Jonah Aldana - Last Filed: 09/24/17 14:16> CCU Objective - Vital Signs / Intake & Output Vital Signs (Last 4 hours): Vital Signs Pulse Resp BP Pulse Ox 09/24/17 13:23 161/128 H 09/24/17 12:09 119 H 22 107/65 100 09/24/17 11:09 126 H 22 98/64 L 95 Intake and Output (Last 8hrs): Intake & Output 09/23/17 09/24/17 09/24/17 22:59 06:59 14:59 Intake Total 1284 1004 528 Output Total 525 505 245 Balance 759 499 283 Intake: IV 100 100 Intake, IV Amount 1104 904 528 Right Distal Port 64 64 48 Internal Jugular Right Forearm 40 40 30 Right Proximal Port 800 600 450 Internal Jugular left hand 200 200 Other 80 Output: Urine 475 405 245 Urethral (Andino) 475 405 245 Stool 50 Urine/Stool Mix 100 - Medications Active Medications: Active Medications Generic Name Dose Route Start Last Admin Trade Name Freq PRN Reason Stop Dose Admin Acetaminophen 650 mg 09/15/17 03:51 09/21/17 07:17 Tylenol 650mg/20.3ml Solution Ud NG 650 mg Q6 PRN Administration Temperature Artificial Tears 1 gm 08/31/17 12:00 09/06/17 20:10 Lacri-Lube OS 1 gm Q6H PRN Administration Sedation Diltiazem HCl 30 mg 09/21/17 10:00 09/24/17 13:25 Cardizem PO 30 mg QID EUSEBIO Administration Famotidine 20 mg 09/21/17 10:45 09/24/17 10:57 Pepcid IVP 20 mg Q12 EUSEBIO Administration Heparin Sodium (Porcine) 5,000 units 09/14/17 12:30 09/24/17 10:57 Heparin SC 5,000 units Q12 EUSEBIO Administration Levetiracetam 1,000 mg/ 110 mls @ 440 mls/hr 09/10/17 06:00 09/24/17 05:39 Dextrose IVPB 440 mls/hr Q12H EUSEBIO Administration Fluconazole 100 mls @ 100 mls/hr 09/17/17 10:30 09/24/17 10:58 Diflucan Iv 200 Mg/100 Ml Ns IVPB 100 mls/hr DAILY EUSEBIO Administration Propofol 1,000 mg in 100 mls @ 4.998 mls/hr 09/18/17 13:13 09/24/17 07:51 Diprivan IV 20 mcg/kg/min .Q20H1M PRN 8.061 mls/hr TITRATE PER MD ORDER Administration Protocol 12.4 MCG/KG/MIN Vancomycin/Sodium Chloride 1 gm in 200 mls @ 133.333 mls/hr 09/21/17 21:00 13:19 Vancomycin 1 Gm/Ns 200 Ml IVPB 09/26/17 21:01 Not Given Q8H EUSEBIO Diltiazem HCl 125 mg/ Dextrose 125 mls @ 15 mls/hr 09/22/17 08:45 09/23/17 19 :24 IV 10 mg/hr .Q8H20M PRN 10 mls/hr Protocol Administration 15 MG/HR Sodium Chloride 1,000 mls @ 75 mls/hr 09/22/17 13:17 09/24/17 05:20 Sodium Chloride 0.9% IV Not Given .[id number] EUSEBIO Meropenem 1 gm/ Sodium 100 mls @ 100 mls/hr 09/24/17 22:00 Chloride IVPB Q8 EUSEBIO Metoprolol Tartrate 25 mg 09/13/17 13:00 09/24/17 13:23 Lopressor PO 25 mg Q8H EUSEBIO Administration Scopolamine 1 patch 09/14/17 22:00 09/23/17 22:35 Transderm-Scop TD 1 patch Q3D EUSEBIO Administration Thiamine HCl 100 mg 08/30/17 22:15 09/24/17 10:57 Vitamin B1 Inj IV 100 mg DAILY EUSEBIO Administration - Patient Studies Lab Studies: Microbiology Studies 09/22/17 11:00 Blood Culture - Preliminary Blood-Venous NO GROWTH AFTER 48 HOURS 09/22/17 11:30 Blood Culture - Preliminary Blood-Venous NO GROWTH AFTER 48 HOURS 11/08/17 20:25 - Final Blood Transfusion Bag - Preliminary NO GROWTH AFTER 4 DAYS 09/22/17 Unknown Urine Culture - Final Urine,Catheterized No Growth (<1,000 CFU/ML) Lab Studies 09/24/17 09/24/17 09/24/17 Range/Units 11:15 05:20 04:29 WBC (4.8-10.8) K/uL RBC (3.80-5.20) Mil/uL Hgb (11.0-16.0) g/dL Hct (34.0-47.0) % MCV (81.0-99.0) fL MCH (27.0-31.0) pg MCHC (33.0-37.0) g/dL RDW (11.5-14.5) % Plt Count (130-400) K/uL MPV (7.2-11.7) fL Neut % (Auto) (50.0-75.0) % Lymph % (Auto) (20.0-40.0) % [place] % (Auto) (0.0-10.0) % Eos % (Auto) (0.0-4.0) % Baso % (Auto) (0.0-2.0) % Neut # (1.8-7.0) K/uL Lymph # (1.0-4.3) K/uL [place] # (0.0-0.8) K/uL Eos # (0.0-0.7) K/uL Baso # (0.0-0.2) K/uL Puncture Site Lr pCO2 37 (35-45) mm/Hg pO2 164 H (80-100) mm/Hg HCO3 29.1 H (21-28) mmol/L ABG pH 7.50 H (7.35-7.45) ABG Total CO2 30.0 H (22-28) mmol/L ABG O2 Saturation 99.4 H (95-98) % ABG Base Excess 5.4 H (-2.0-3.0) mmol/L ABG Hemoglobin 9.4 L (11.7-17.4) g/dL ABG Carboxyhemoglobin 1.8 H (0.5-1.5) % POC ABG HHb (Measured) 0.6 (0.0-5.0) % ABG Methemoglobin 1.4 (0.0-3.0) % Stephen Test Pos A-a O2 Difference 146.0 mm/Hg Respiratory Index 0.9 Hgb O2 Saturation 96.2 (95.0-98.0) % Vent Mode Prvc Mechanical Rate 15 FiO2 50.0 % Tidal Volume 400 PEEP 5 Sodium 133 (132-148) mmol/L Potassium 3.7 (3.6-5.2) mmol/L Chloride 99 (98-107) mmol/L Carbon Dioxide 28 (22-30) mmol/L Anion Gap 11 (10-20) BUN 2 L (7-17) mg/dL Creatinine 0.3 L (0.7-1.2) mg/dL Est GFR ( Amer) > 60 Est GFR (Non-Af Amer) > 60 POC Glucose (mg/dL) 101 (65-110) mg/dL Random Glucose 87 (65-105) mg/dL Calcium 9.6 (8.6-10.4) mg/dl Phosphorus 4.0 (2.5-4.5) mg/dL Magnesium 1.4 L (1.6-2.3) mg/dL Total Bilirubin 1.2 (0.2-1.3) mg/dL AST 23 (14-36) U/L ALT 32 (9-52) U/L Alkaline Phosphatase 112 (38-126) U/L Total Protein 6.7 (6.3-8.3) g/dL Albumin 2.7 L (3.5-5.0) g/dL Globulin 4.0 H (2.2-3.9) gm/dL Albumin/Globulin Ratio 0.7 L (1.0-2.1) Vancomycin Trough (5.0-10.0) ug/mL 09/24/17 09/24/17 09/23/17 Range/Units 04:29 04:29 23:30 WBC 13.1 H (4.8-10.8) K/uL RBC 3.56 L (3.80-5.20) Mil/uL Hgb 10.4 L (11.0-16.0) g/dL Hct 31.4 L (34.0-47.0) % MCV 88.2 (81.0-99.0) fL MCH 29.1 (27.0-31.0) pg MCHC 33.0 (33.0-37.0) g/dL RDW 14.8 H (11.5-14.5) % Plt Count 278 (130-400) K/uL MPV 8.2 (7.2-11.7) fL Neut % (Auto) 77.1 H (50.0-75.0) % Lymph % (Auto) 12.0 L (20.0-40.0) % [place] % (Auto) 7.3 (0.0-10.0) % Eos % (Auto) 2.8 (0.0-4.0) % Baso % (Auto) 0.8 (0.0-2.0) % Neut # 10.1 H (1.8-7.0) K/uL Lymph # 1.6 (1.0-4.3) K/uL [place] # 1.0 H (0.0-0.8) K/uL Eos # 0.4 (0.0-0.7) K/uL Baso # 0.1 (0.0-0.2) K/uL Puncture Site pCO2 (35-45) mm/Hg pO2 (80-100) mm/Hg HCO3 (21-28) mmol/L ABG pH (7.35-7.45) ABG Total CO2 (22-28) mmol/L ABG O2 Saturation (95-98) % ABG Base Excess (-2.0-3.0) mmol/L ABG Hemoglobin (11.7-17.4) g/dL ABG Carboxyhemoglobin (0.5-1.5) % POC ABG HHb (Measured) (0.0-5.0) % ABG Methemoglobin (0.0-3.0) % Stephen Test A-a O2 Difference mm/Hg Respiratory Index Hgb O2 Saturation (95.0-98.0) % Vent Mode Mechanical Rate FiO2 % Tidal Volume PEEP Sodium (132-148) mmol/L Potassium (3.6-5.2) mmol/L Chloride (98-107) mmol/L Carbon Dioxide (22-30) mmol/L Anion Gap (10-20) BUN (7-17) mg/dL Creatinine (0.7-1.2) mg/dL Est GFR ( Amer) Est GFR (Non-Af Amer) POC Glucose (mg/dL) 98 (65-110) mg/dL Random Glucose (65-105) mg/dL Calcium (8.6-10.4) mg/dl Phosphorus (2.5-4.5) mg/dL Magnesium (1.6-2.3) mg/dL Total Bilirubin (0.2-1.3) mg/dL AST (14-36) U/L ALT (9-52) U/L Alkaline Phosphatase (38-126) U/L Total Protein (6.3-8.3) g/dL Albumin (3.5-5.0) g/dL Globulin (2.2-3.9) gm/dL Albumin/Globulin Ratio (1.0-2.1) Vancomycin Trough 20.4 H (5.0-10.0) ug/mL 09/23/17 Range/Units 11:44 WBC (4.8-10.8) K/uL RBC (3.80-5.20) Mil/uL Hgb (11.0-16.0) g/dL Hct (34.0-47.0) % MCV (81.0-99.0) fL MCH (27.0-31.0) pg MCHC (33.0-37.0) g/dL RDW (11.5-14.5) % Plt Count (130-400) K/uL MPV (7.2-11.7) fL Neut % (Auto) (50.0-75.0) % Lymph % (Auto) (20.0-40.0) % [place] % (Auto) (0.0-10.0) % Eos % (Auto) (0.0-4.0) % Baso % (Auto) (0.0-2.0) % Neut # (1.8-7.0) K/uL Lymph # (1.0-4.3) K/uL [place] # (0.0-0.8) K/uL Eos # (0.0-0.7) K/uL Baso # (0.0-0.2) K/uL Puncture Site pCO2 (35-45) mm/Hg pO2 (80-100) mm/Hg HCO3 (21-28) mmol/L ABG pH (7.35-7.45) ABG Total CO2 (22-28) mmol/L ABG O2 Saturation (95-98) % ABG Base Excess (-2.0-3.0) mmol/L ABG Hemoglobin (11.7-17.4) g/dL ABG Carboxyhemoglobin (0.5-1.5) % POC ABG HHb (Measured) (0.0-5.0) % ABG Methemoglobin (0.0-3.0) % Stephen Test A-a O2 Difference mm/Hg Respiratory Index Hgb O2 Saturation (95.0-98.0) % Vent Mode Mechanical Rate FiO2 % Tidal Volume PEEP Sodium (132-148) mmol/L Potassium (3.6-5.2) mmol/L Chloride (98-107) mmol/L Carbon Dioxide (22-30) mmol/L Anion Gap (10-20) BUN (7-17) mg/dL Creatinine (0.7-1.2) mg/dL Est GFR ( Amer) Est GFR (Non-Af Amer) POC Glucose (mg/dL) 103 (65-110) mg/dL Random Glucose (65-105) mg/dL Calcium (8.6-10.4) mg/dl Phosphorus (2.5-4.5) mg/dL Magnesium (1.6-2.3) mg/dL Total Bilirubin (0.2-1.3) mg/dL AST (14-36) U/L ALT (9-52) U/L Alkaline Phosphatase (38-126) U/L Total Protein (6.3-8.3) g/dL Albumin (3.5-5.0) g/dL Globulin (2.2-3.9) gm/dL Albumin/Globulin Ratio (1.0-2.1) Vancomycin Trough (5.0-10.0) ug/mL Laboratory Results - last 24 hr 09/23/17 09/23/17 09/24/17 11:44 23:30 04:29 WBC RBC Hgb Hct MCV MCH MCHC RDW Plt Count MPV Neut % (Auto) Lymph % (Auto) [place] % (Auto) Eos % (Auto) Baso % (Auto) Neut # Lymph # [place] # Eos # Baso # Puncture Site pCO2 pO2 HCO3 ABG pH ABG Total CO2 ABG O2 Saturation ABG Base Excess ABG Hemoglobin ABG Carboxyhemoglobin POC ABG HHb (Measured) ABG Methemoglobin Stepehn Test A-a O2 Difference Respiratory Index Hgb O2 Saturation Vent Mode Mechanical Rate FiO2 Tidal Volume PEEP Sodium Potassium Chloride Carbon Dioxide Anion Gap BUN Creatinine Est GFR ( Amer) Est GFR (Non-Af Amer) POC Glucose (mg/dL) 103 98 Random Glucose Calcium Phosphorus Magnesium Total Bilirubin AST ALT Alkaline Phosphatase Total Protein Albumin Globulin Albumin/Globulin Ratio Vancomycin Trough 20.4 H 09/24/17 09/24/17 09/24/17 04:29 04:29 05:20 WBC 13.1 H RBC 3.56 L Hgb 10.4 L Hct 31.4 L MCV 88.2 MCH 29.1 MCHC 33.0 RDW 14.8 H Plt Count 278 MPV 8.2 Neut % (Auto) 77.1 H Lymph % (Auto) 12.0 L [place] % (Auto) 7.3 Eos % (Auto) 2.8 Baso % (Auto) 0.8 Neut # 10.1 H Lymph # 1.6 [place] # 1.0 H Eos # 0.4 Baso # 0.1 Puncture Site Lr pCO2 37 pO2 164 H HCO3 29.1 H ABG pH 7.50 H ABG Total CO2 30.0 H ABG O2 Saturation 99.4 H ABG Base Excess 5.4 H ABG Hemoglobin 9.4 L ABG Carboxyhemoglobin 1.8 H POC ABG HHb (Measured) 0.6 ABG Methemoglobin 1.4 Stephen Test Pos A-a O2 Difference 146.0 Respiratory Index 0.9 Hgb O2 Saturation 96.2 Vent Mode Prvc Mechanical Rate 15 FiO2 50.0 Tidal Volume 400 PEEP 5 Sodium 133 Potassium 3.7 Chloride 99 Carbon Dioxide 28 Anion Gap 11 BUN 2 L Creatinine 0.3 L Est GFR ( Amer) > 60 Est GFR (Non-Af Amer) > 60 POC Glucose (mg/dL) Random Glucose 87 Calcium 9.6 Phosphorus 4.0 Magnesium 1.4 L Total Bilirubin 1.2 AST 23 ALT 32 Alkaline Phosphatase 112 Total Protein 6.7 Albumin 2.7 L Globulin 4.0 H Albumin/Globulin Ratio 0.7 L Vancomycin Trough 09/24/17 11:15 WBC RBC Hgb Hct MCV MCH MCHC RDW Plt Count MPV Neut % (Auto) Lymph % (Auto) [place] % (Auto) Eos % (Auto) Baso % (Auto) Neut # Lymph # [place] # Eos # Baso # Puncture Site pCO2 pO2 HCO3 ABG pH ABG Total CO2 ABG O2 Saturation ABG Base Excess ABG Hemoglobin ABG Carboxyhemoglobin POC ABG HHb (Measured) ABG Methemoglobin Stephen Test A-a O2 Difference Respiratory Index Hgb O2 Saturation Vent Mode Mechanical Rate FiO2 Tidal Volume PEEP Sodium Potassium Chloride Carbon Dioxide Anion Gap BUN Creatinine Est GFR ( Amer) Est GFR (Non-Af Amer) POC Glucose (mg/dL) 101 Random Glucose Calcium Phosphorus Magnesium Total Bilirubin AST ALT Alkaline Phosphatase Total Protein Albumin Globulin Albumin/Globulin Ratio Vancomycin Trough Critical Care Progress Note - Nutrition Nutrition: Nutrition Category Date Time Status NPO Diet [DIET] Diets 09/18/17 Breakfast Active Assessment/Plan (1) Anemia Current Visit: Yes Status: Acute (2) Cardiac arrest Current Visit: Yes Status: Acute (3) Anoxic encephalopathy Current Visit: Yes Status: Acute Attending/Attestation - Attestation I have personally seen and examined this patient.: Yes I have fully participated in the care of the patient.: Yes I have reviewed all pertinent clinical information: Yes Notes (Text): 09/24/17 14:15 Patient's condition is no change. Anoxic. Status post a tracheostomy. Family at bedside. Discussed during rounds. Patient will need long-term care. Clinically otherwise no new changes
[2017-09-17] MEDS: Propofol 10 mg/ml 1,000 MG/100 ML VIAL IV PRN ×2 (14:09→20:55)
--- NOTE | 2017-09-17 17:36 | CP.PCM.PCO ---
Physician Communication Note - Physician Communication Note Physician Communication Note: Planning OR tomorrow for trach/PEG
--- NOTE | 2017-09-17 19:28 | PN ---
DATE: 09/17/2017 SUBJECTIVE: The patient is seen and examined at bedside. The patient's mental status remains the same, remains intubated, unresponsive, involuntary movements, copious secretions. PHYSICAL EXAMINATION: VITAL SIGNS: Her blood pressure 105/85, pulse 150, respirations 36, O2 sat is 96% on 3% FiO2, 450 tidal volume, sed rate of 10, PEEP of 5, breathing at 36, temperature is 101.1. Intake is 1590 mL, output 690. HEENT: Pupils sluggishly reacting to light, involuntary movements of the eye lids. ET tube and gastric tube in the oral cavity with excessive secretions. NECK: Supple. LUNGS: Bilateral vesicular breath sounds. Bilateral basal crackles. CARDIOVASCULAR: S1 and S2 present, regular, tachycardic. ABDOMEN: Soft. Bowel sounds present. No guarding. CENTRAL NERVOUS SYSTEM: Sedated and intubated. Involuntary movements, not responding to verbal or deep painful stimuli. EXTREMITIES: No edema. MEDICATIONS: Include Tylenol as needed, Artificial Tears, Maxipime 2 g IV q.8 hours, Cardizem 30 mg p.o. t.i.d., Cardizem drip 5 mg per hour, Diflucan 200 mg IV, heparin 5000 units q.12 hours, Keppra 1 g daily, Ativan 2 mg IV push as needed, Lopressor 25 mg p.o. q.8 hours, Protonix 40 mg daily, K-Dur 20 mEq p.o. daily, Diprivan, thiamine 100 mg daily and vancomycin 1 g IV q.12 hours. LABORATORY DATA: Labs from this morning; WBC 18, hemoglobin 10, hematocrit 30.2 and platelets 456. Sodium 131, potassium 3.2, chloride 95, bicarb 27, BUN 13, creatinine 0.3, glucose 114, calcium 10.1, phosphorus 3.3, magnesium 1.6, total bilirubin 1.0, AST 29, ALT 26, alkaline phosphatase 126, total protein 10.4 and albumin 3.1. ASSESSMENT AND PLAN: Young female with EtOH abuse, substance abuse, chronic back problems, status post surgery, wheelchair bound, admitted to [facility] status post cardiac arrest with vent dependent respiratory failure, anoxic encephalopathy, multiple electrolyte imbalance, sepsis, yeast urinary tract infection, tachycardia, pneumonia, Staphylococcus aureus in the trach aspirate. The patient's neuro status remains the same, remains vent dependent. The patient is on multiple medications for seizures. Continue with DVT and GI prophylaxis, on multiple medications. The patient received fluid bolus this morning. Continue with vancomycin, Maxipime, and Diflucan. Repeat labs. Continue with supportive care for possible trach and PEG when stable. Continue with supportive care. Prognosis is guarded. Condition is critical. ICU team discussed with the patient's daughter. Would want aggressive management at this time. We will continue with current management as per the patient's family's wishes. Still awaiting for palliative care input and ethics consult. Phoenix Caballero MD
[2017-09-18] MEDS: Vancomycin 1 gm/NS 200 ml 1 GM/200 ML BAG IVPB SCH ×2 (00:05→14:30)
[2017-09-18] MEDS: Propofol 10 mg/ml 1,000 MG/100 ML VIAL IV PRN (01:00)
[2017-09-18] MEDS: Cefepime IV 2 gm in Dextrose 2 GM/100 ML BAG IVPB SCH ×3 (02:11→18:45)
[2017-09-18 05:39] LABS: ABG ALLEN TEST POS; ABG MECHANICAL RATE 10; ARTERIAL BLOOD GAS MODE PRVC; ARTERIAL BLOOD HGB O2 SAT 95.5 % (95.0-98.0); ATERIAL BLOOD GAS PEEP 5; CARBOXYHEMOGLOBIN 2.6 % (0.5-1.5); DRAW SITE RR; HHB 0.8 % (0.0-5.0); METHEMOGLOBIN 1.1 % (0.0-3.0)
[2017-09-18 06:53] LABS: BASO # 0.1 K/uL (0.0-0.2); BASO % 0.7 % (0.0-2.0); EOS # 0.1 K/uL (0.0-0.7); EOS % 0.6 % (0.0-4.0); HEMATOCRIT 30.4 % (34.0-47.0); LYMPH # 1.3 K/uL (1.0-4.3); LYMPH % 6.4 % (20.0-40.0); MEAN CELL VOLUME 90.5 fL (81.0-99.0); MEAN CORPUSCULAR HEMOGLOBIN 29.2 pg (27.0-31.0); MEAN CORPUSCULAR HGB CONC 32.3 g/dL (33.0-37.0); MEAN PLATELET VOLUME 9.2 fL (7.2-11.7); MONO % 4.8 % (0.0-10.0); PLATELET COUNT 369 K/uL (130-400); WHITE BLOOD COUNT 20.8 K/uL (4.8-10.8)
[2017-09-18 06:57] LABS: INR 1.8
[2017-09-18 07:11] LABS: ALB/GLOB RATIO 0.7 (1.0-2.1); ALKALINE PHOSPHATASE 157 U/L (38-126); ALT/SGPT 29 U/L (9-52); AST/SGOT 35 U/L (14-36); BILIRUBIN,TOTAL 1.5 mg/dL (0.2-1.3); BLOOD UREA NITROGEN 9 mg/dL (7-17); CARBON DIOXIDE 27 mmol/L (22-30); CHLORIDE 94 mmol/L (98-107); GFR AFRICAN-AMERICAN > 60; GLUCOSE,RANDOM 89 mg/dL (65-105); MAGNESIUM 1.4 mg/dL (1.6-2.3); PHOSPHOROUS 2.9 mg/dL (2.5-4.5); SODIUM 131 mmol/L (132-148); TOTAL PROTEIN 7.4 g/dL (6.3-8.3)
[2017-09-18] MEDS: Magnesium Sulfate 1 gm in D5W 1 GM/100 ML BAG IVPB SCH ×2 (07:45→08:00)
--- NOTE | 2017-09-18 07:48 | CP.CCUPN ---
<OnofreshlomoLiset Phyllis - Last Filed: 09/18/17 12:32> CCU Subjective - Physician Review Subjective (Free Text): Patient seen and examined at bedside. Patient currently intubated. ROS unobtainable due to patient's current clinical status. CCU Objective - Vital Signs / Intake & Output Vital Signs (Last 4 hours): Vital Signs Temp Pulse Resp BP Pulse Ox 09/18/17 06:00 100 H 21 94 L 09/18/17 05:48 105 H 24 97/73 L 100 09/18/17 05:42 93/59 L 09/18/17 05:00 91 H 14 100 09/18/17 04:51 92 H 14 93/59 L 100 09/18/17 04:47 91 H 16 87/55 L 100 09/18/17 04:32 89 17 100 09/18/17 04:00 97.4 F L 90 18 100 Intake and Output (Last 8hrs): Intake & Output 09/17/17 09/18/17 09/18/17 22:59 06:59 14:59 Intake Total 551 372 10 Output Total 420 435 Balance 131 -63 10 Weight 148 lb 1.6 oz Intake: IV 135 220 Intake, IV Amount 416 152 10 Right Distal Port 216 77 5 Internal Jugular Right Internal Jugular 100 Right Proximal Port 100 75 5 Internal Jugular Tube Feeding 0 0 0 Output: Urine 360 435 Urethral (Andino) 360 435 Stool 60 Emesis 0 - Physical Exam Head: Positive for: Atraumatic, Normocephalic Pupils: Positive for: Sluggish Extroacular Muscles: Negative for: EOMI Mouth: Positive for: Moist Mucous Membranes Respiratory/Chest: Positive for: Good Air Exchange, Other (intubated ) Cardiovascular: Positive for: Normal S1, S2, Tachycardic Abdomen: Positive for: Normal Bowel Sounds. Negative for: Distention Upper Extremity: Negative for: Edema Lower Extremity: Negative for: Edema Neurological: Negative for: GCS=15, Speech Normal Skin: Positive for: Normal Color Psychiatric: Negative for: Alert, Oriented x 3 - Medications Active Medications: Active Medications Generic Name Dose Route Start Last Admin Trade Name Freq PRN Reason Stop Dose Admin Acetaminophen 650 mg 09/15/17 03:51 09/17/17 00:35 Tylenol 650mg/20.3ml Solution Ud NG 650 mg Q6 PRN Administration Temperature Artificial Tears 1 gm 08/31/17 12:00 09/06/17 20:10 Lacri-Lube OS 1 gm Q6H PRN Administration Sedation Diltiazem HCl 30 mg 09/16/17 10:00 09/17/17 17:30 Cardizem PO Not Given TID EUSEBIO Heparin Sodium (Porcine) 5,000 units 09/14/17 12:30 09/17/17 22:00 Heparin SC 5,000 units Q12 EUSEBIO Administration Levetiracetam 1,000 mg/ 110 mls @ 440 mls/hr 09/10/17 06:00 09/18/17 05:43 Dextrose IVPB 440 mls/hr Q12H EUSEBIO Administration Cefepime HCl 2 gm in 100 mls @ 200 mls/hr 09/15/17 11:00 09/18/17 02:11 Maxipime Iv 2 Gm Premix IVPB 09/20/17 11:01 200 mls/hr Q8H EUSEBIO Administration Vancomycin/Sodium Chloride 1 gm in 200 mls @ 133.333 mls/hr 09/16/17 13:00 00:05 Vancomycin 1 Gm/Ns 200 Ml IVPB 09/21/17 13:01 133.333 mls/hr Q12H EUSEBIO Administration Fluconazole 100 mls @ 100 mls/hr 09/17/17 10:30 09/17/17 10:42 Diflucan Iv 200 Mg/100 Ml Ns IVPB Not Given DAILY EUSEBIO Propofol 1,000 mg in 100 mls @ 1.973 mls/hr 09/17/17 14:00 09/18/17 02:58 Diprivan IV 12.67 mcg/kg/min .Q24H PRN 5 mls/hr TITRATE PER MD ORDER Titration Protocol 5 MCG/KG/MIN Diltiazem HCl 125 mg/ Dextrose 125 mls @ 5 mls/hr 09/17/17 14:15 09/18/17 02: 57 IV 5 mg/hr .Q24H EUSEBIO 5 mls/hr Protocol Titration 5 MG/HR Magnesium Sulfate/Dextrose 1 gm in 100 mls @ 300 mls/hr 09/18/17 07:30 Magnesium Sulfate 1 Gm/100 Ml D5w IVPB 09/18/17 08:19 Q30M EUSEBIO Potassium Chloride 20 meq in 100 mls @ 50 mls/hr 09/18/17 10:00 Potassium Chloride 20 Meq/100 Ml IVPB 09/18/17 11:59 ONCE ONE Potassium Chloride 20 meq in 100 mls @ 50 mls/hr 09/18/17 08:00 Potassium Chloride 20 Meq/100 Ml IVPB 09/18/17 09:59 ONCE ONE Lorazepam 2 mg 09/17/17 09:59 09/17/17 11:16 Ativan IVP 2 mg Q6H PRN Administration Agitation Metoprolol Tartrate 25 mg 09/13/17 13:00 09/18/17 05:42 Lopressor PO Not Given Q8H EUSEBIO Pantoprazole Sodium 40 mg 08/31/17 10:00 09/17/17 09:03 Protonix Inj IVP 40 mg DAILY EUSEBIO Administration Potassium Chloride 20 meq 09/14/17 14:30 09/17/17 09:01 Potassium Chloride Oral Soln PO 20 meq DAILY EUSEBIO Administration Scopolamine 1 patch 09/14/17 22:00 09/17/17 22:18 Transderm-Scop TD 1 patch Q3D EUSEBIO Administration Thiamine HCl 100 mg 08/30/17 22:15 09/17/17 09:02 Vitamin B1 Inj IV 100 mg DAILY EUSEBIO Administration - Patient Studies Lab Studies: Microbiology Studies 09/12/17 18:00 Blood Culture - Final Blood-Venous NO GROWTH AFTER 5 DAYS Gram Stain - Final TEST NOT PERFORMED 09/12/17 18:00 Blood Culture - Final Blood-Venous NO GROWTH AFTER 5 DAYS Gram Stain - Final TEST NOT PERFORMED Lab Studies 09/18/17 09/18/17 09/18/17 Range/Units 06:38 06:38 06:38 WBC 20.8 H (4.8-10.8) K/uL RBC 3.36 L (3.80-5.20) Mil/uL Hgb 9.8 L (11.0-16.0) g/dL Hct 30.4 L (34.0-47.0) % MCV 90.5 (81.0-99.0) fL MCH 29.2 (27.0-31.0) pg MCHC 32.3 L (33.0-37.0) g/dL RDW 15.0 H (11.5-14.5) % Plt Count 369 (130-400) K/uL MPV 9.2 (7.2-11.7) fL Neut % (Auto) 87.5 H (50.0-75.0) % Lymph % (Auto) 6.4 L (20.0-40.0) % [place] % (Auto) 4.8 (0.0-10.0) % Eos % (Auto) 0.6 (0.0-4.0) % Baso % (Auto) 0.7 (0.0-2.0) % Neut # 18.2 H (1.8-7.0) K/uL Lymph # 1.3 (1.0-4.3) K/uL [place] # 1.0 H (0.0-0.8) K/uL Eos # 0.1 (0.0-0.7) K/uL Baso # 0.1 (0.0-0.2) K/uL PT 21.0 H (9.7-12.2) SECONDS INR 1.8 APTT 37 H (21-34) SECONDS Puncture Site pCO2 (35-45) mm/Hg pO2 (80-100) mm/Hg HCO3 (21-28) mmol/L ABG pH (7.35-7.45) ABG Total CO2 (22-28) mmol/L ABG O2 Saturation (95-98) % ABG Base Excess (-2.0-3.0) mmol/L ABG Hemoglobin (11.7-17.4) g/dL ABG Carboxyhemoglobin (0.5-1.5) % POC ABG HHb (Measured) (0.0-5.0) % ABG Methemoglobin (0.0-3.0) % Stephen Test A-a O2 Difference mm/Hg Respiratory Index Hgb O2 Saturation (95.0-98.0) % Vent Mode Mechanical Rate FiO2 % Tidal Volume PEEP Sodium 131 L (132-148) mmol/L Potassium 3.0 L (3.6-5.2) mmol/L Chloride 94 L (98-107) mmol/L Carbon Dioxide 27 (22-30) mmol/L Anion Gap 13 (10-20) BUN 9 (7-17) mg/dL Creatinine 0.2 L (0.7-1.2) mg/dL Est GFR ( Amer) > 60 Est GFR (Non-Af Amer) > 60 Random Glucose 89 (65-105) mg/dL Calcium 11.0 H (8.6-10.4) mg/dl Phosphorus 2.9 (2.5-4.5) mg/dL Magnesium 1.4 L (1.6-2.3) mg/dL Total Bilirubin 1.5 H (0.2-1.3) mg/dL AST 35 (14-36) U/L ALT 29 (9-52) U/L Alkaline Phosphatase 157 H D (38-126) U/L Total Protein 7.4 (6.3-8.3) g/dL Albumin 3.1 L (3.5-5.0) g/dL Globulin 4.3 H (2.2-3.9) gm/dL Albumin/Globulin Ratio 0.7 L (1.0-2.1) Beta HCG, Quant mIU/ML 09/18/17 09/17/17 Range/Units 05:12 06:13 WBC (4.8-10.8) K/uL RBC (3.80-5.20) Mil/uL Hgb (11.0-16.0) g/dL Hct (34.0-47.0) % MCV (81.0-99.0) fL MCH (27.0-31.0) pg MCHC (33.0-37.0) g/dL RDW (11.5-14.5) % Plt Count (130-400) K/uL MPV (7.2-11.7) fL Neut % (Auto) (50.0-75.0) % Lymph % (Auto) (20.0-40.0) % [place] % (Auto) (0.0-10.0) % Eos % (Auto) (0.0-4.0) % Baso % (Auto) (0.0-2.0) % Neut # (1.8-7.0) K/uL Lymph # (1.0-4.3) K/uL [place] # (0.0-0.8) K/uL Eos # (0.0-0.7) K/uL Baso # (0.0-0.2) K/uL PT (9.7-12.2) SECONDS INR APTT (21-34) SECONDS Puncture Site Rr pCO2 31 L (35-45) mm/Hg pO2 83 (80-100) mm/Hg HCO3 28.1 H (21-28) mmol/L ABG pH 7.54 H (7.35-7.45) ABG Total CO2 27.5 (22-28) mmol/L ABG O2 Saturation 99.2 H (95-98) % ABG Base Excess 4.1 H (-2.0-3.0) mmol/L ABG Hemoglobin 10.0 L (11.7-17.4) g/dL ABG Carboxyhemoglobin 2.6 H (0.5-1.5) % POC ABG HHb (Measured) 0.8 (0.0-5.0) % ABG Methemoglobin 1.1 (0.0-3.0) % Stephen Test Pos A-a O2 Difference 163.0 mm/Hg Respiratory Index 2.0 Hgb O2 Saturation 95.5 (95.0-98.0) % Vent Mode Prvc Mechanical Rate 10 FiO2 40.0 % Tidal Volume 450 PEEP 5 Sodium 131 L (132-148) mmol/L Potassium 3.2 L (3.6-5.2) mmol/L Chloride 95 L (98-107) mmol/L Carbon Dioxide 27 (22-30) mmol/L Anion Gap 12 (10-20) BUN 13 (7-17) mg/dL Creatinine 0.3 L (0.7-1.2) mg/dL Est GFR ( Amer) > 60 Est GFR (Non-Af Amer) > 60 Random Glucose 114 H (65-105) mg/dL Calcium 10.1 (8.6-10.4) mg/dl Phosphorus 3.3 (2.5-4.5) mg/dL Magnesium 1.6 (1.6-2.3) mg/dL Total Bilirubin 1.0 (0.2-1.3) mg/dL AST 29 (14-36) U/L ALT 26 (9-52) U/L Alkaline Phosphatase 126 (38-126) U/L Total Protein 7.4 (6.3-8.3) g/dL Albumin 3.1 L (3.5-5.0) g/dL Globulin 4.3 H (2.2-3.9) gm/dL Albumin/Globulin Ratio 0.7 L (1.0-2.1) Beta HCG, Quant < 2.39 mIU/ML Laboratory Results - last 24 hr 09/17/17 09/18/17 09/18/17 06:13 05:12 06:38 WBC 20.8 H RBC 3.36 L Hgb 9.8 L Hct 30.4 L MCV 90.5 MCH 29.2 MCHC 32.3 L RDW 15.0 H Plt Count 369 MPV 9.2 Neut % (Auto) 87.5 H Lymph % (Auto) 6.4 L [place] % (Auto) 4.8 Eos % (Auto) 0.6 Baso % (Auto) 0.7 Neut # 18.2 H Lymph # 1.3 [place] # 1.0 H Eos # 0.1 Baso # 0.1 PT INR APTT Puncture Site Rr pCO2 31 L pO2 83 HCO3 28.1 H ABG pH 7.54 H ABG Total CO2 27.5 ABG O2 Saturation 99.2 H ABG Base Excess 4.1 H ABG Hemoglobin 10.0 L ABG Carboxyhemoglobin 2.6 H POC ABG HHb (Measured) 0.8 ABG Methemoglobin 1.1 Stephen Test Pos A-a O2 Difference 163.0 Respiratory Index 2.0 Hgb O2 Saturation 95.5 Vent Mode Prvc Mechanical Rate 10 FiO2 40.0 Tidal Volume 450 PEEP 5 Sodium 131 L Potassium 3.2 L Chloride 95 L Carbon Dioxide 27 Anion Gap 12 BUN 13 Creatinine 0.3 L Est GFR ( Amer) > 60 Est GFR (Non-Af Amer) > 60 Random Glucose 114 H Calcium 10.1 Phosphorus 3.3 Magnesium 1.6 Total Bilirubin 1.0 AST 29 ALT 26 Alkaline Phosphatase 126 Total Protein 7.4 Albumin 3.1 L Globulin 4.3 H Albumin/Globulin Ratio 0.7 L Beta HCG, Quant < 2.39 09/18/17 09/18/17 06:38 06:38 WBC RBC Hgb Hct MCV MCH MCHC RDW Plt Count MPV Neut % (Auto) Lymph % (Auto) [place] % (Auto) Eos % (Auto) Baso % (Auto) Neut # Lymph # [place] # Eos # Baso # PT 21.0 H INR 1.8 APTT 37 H Puncture Site pCO2 pO2 HCO3 ABG pH ABG Total CO2 ABG O2 Saturation ABG Base Excess ABG Hemoglobin ABG Carboxyhemoglobin POC ABG HHb (Measured) ABG Methemoglobin Stephen Test A-a O2 Difference Respiratory Index Hgb O2 Saturation Vent Mode Mechanical Rate FiO2 Tidal Volume PEEP Sodium 131 L Potassium 3.0 L Chloride 94 L Carbon Dioxide 27 Anion Gap 13 BUN 9 Creatinine 0.2 L Est GFR ( Amer) > 60 Est GFR (Non-Af Amer) > 60 Random Glucose 89 Calcium 11.0 H Phosphorus 2.9 Magnesium 1.4 L Total Bilirubin 1.5 H AST 35 ALT 29 Alkaline Phosphatase 157 H D Total Protein 7.4 Albumin 3.1 L Globulin 4.3 H Albumin/Globulin Ratio 0.7 L Beta HCG, Quant Fingerstick Blood Sugar Results: 123 Review of Systems - Review of Systems Systems not reviewed;Unavailable: Intubated Critical Care Progress Note - Nutrition Nutrition: Nutrition Category Date Time Status NPO Diet [DIET] Diets 09/18/17 Breakfast Active Assessment/Plan - Assessment and Plan (Free Text) Assessment: 36 year old female with past medical history of anemia and alcohol abuse, who was found unconscious by . EMS was called and patient was found to be in Asystole, ACLS protocol was initiated and 2 rounds of epinephrine and then ROSC. Patient was unconscious in the ED. Subsequently, patient was admitted to the ICU and hypothermia protocol was initiated. Plan: Neuro: Intubated, Acute seizures Neurologist, Dr. Pugh---> help appreciated * Management as per recommendation Medication/Management: * Keppra 500mg IV Q12H * Propofol (Titratable) Imaging: * EEG (08/31/17): globally abnormal EEG because of persistent spike and wave activities consistent with status epilepticus. Please correlate the findings with neurological and radiological studies * Cerebral blood flow (09/03/17): does not conform to nuclear medicine diagnosis of brain . There is a faint cerebral flow, the study is considered technically suboptimal for reasons related to technique and poor visualization of carotid arteries. * CT head w/o contrast (09/03/17): No mass effect or edema. No atrophy or chronic microvascular. * EEG (09/06): status epilepticus * head CT (09/12/17): asymmetric low attenuation in the L basal ganglia could represent anoxic injury. Mild global parenchymal volume loss, advanced for the patient's age. Cardio: Cardiopulmonary Arrest, tachycardia Management: * Intubated * Hypothermia protocol was initiated * Lopressor 25mg po q8h * Cardizem drip started (09/17) Pulm: Respiratory distress secondary to cardiac arrest Management: * Intubated * sputum culture: staph * D Dimer: [id number] * CTA: no evidence of PE, bibasilar consolidation. Upper lobe interstitial infiltrates. * tidal volume decreased to 400 on 09/18 * Trach placement by Dr. Dockery today GI: Diarrhea * C. Dif negative (09/03) * f/u repeat C. dif * PEG placement by Dr. Dockery today Renal: Electrolyte imbalance Nephrology, Dr. Ramos---> Help appreciated * Management as per recommendation * electrolytes repleted as needed * KCl 20mEq daily Heme: anemia * H/H: on 09/12 dropped to 7.3/22.5 from 8.1/24.5- patient was transfused 2 u PRBCs * H/H: 9.8/30.4 * 09/18- INR: 1.8, 2u FFP transfused and Vit K 10mg sc given ID: * urine: yeast * sputum: staph aureus * Cefepime 2gm q8h (started on 09/15) * Vancomycin 1gm q12h * 09/12: repeat cultures: urine- yeast species, blood negative Psych: Alcohol abuse disorder * Thiamine 100mg IV daily Prophylaxis measures: * R IJ in place * DVT: SCDs, Heparin 5,000 units SC Q12H * GI: Protonix 40mg IV daily * tube feeds: jevity <Burton Walters S - Last Filed: 09/18/17 18:06> CCU Objective - Vital Signs / Intake & Output Vital Signs (Last 4 hours): Vital Signs Temp Pulse Resp BP Pulse Ox 09/18/17 16:00 99.5 F 123 H 22 100 09/18/17 15:58 124 H 20 90/51 L 100 09/18/17 15:45 119 H 12 100 09/18/17 15:43 122 H 19 84/57 L 100 09/18/17 15:30 124 H 24 100 09/18/17 15:28 120 H 13 88/57 L 100 09/18/17 15:17 122 H 18 100 09/18/17 15:13 89/54 L 09/18/17 15:12 122 H 22 100 09/18/17 15:00 123 H 24 100 09/18/17 14:58 119 H 14 96/58 L 100 09/18/17 14:45 124 H 22 99 09/18/17 14:43 123 H 22 95/58 L 100 09/18/17 14:30 123 H 23 100 09/18/17 14:28 123 H 20 95/63 L 99 09/18/17 14:15 123 H 24 94 L 09/18/17 14:13 122 H 23 93/63 L 92 L 09/18/17 14:00 121 H 22 96 09/18/17 13:58 122 H 25 H 101/65 98 09/18/17 13:45 114 H 24 100 09/18/17 13:44 122 H 22 96/72 L 100 Intake and Output (Last 8hrs): Intake & Output 09/18/17 09/18/17 09/18/17 06:59 14:59 22:59 Intake Total 372 800 10 Output Total 435 255 65 Balance -63 545 -55 Weight 148 lb 1.6 oz Intake: IV 220 Intake, IV Amount 152 650 10 Right Distal Port 77 10 0 Internal Jugular Right Internal Jugular 600 0 Right Proximal Port 75 40 10 Internal Jugular Tube Feeding 0 0 Blood Product 150 Output: Urine 435 255 65 Urethral (Andino) 435 255 65 Emesis 0 0 Other: # Bowel Movements 100 120 - Medications Active Medications: Active Medications Generic Name Dose Route Start Last Admin Trade Name Freq PRN Reason Stop Dose Admin Acetaminophen 650 mg 09/15/17 03:51 09/17/17 00:35 Tylenol 650mg/20.3ml Solution Ud NG 650 mg Q6 PRN Administration Temperature Artificial Tears 1 gm 08/31/17 12:00 09/06/17 20:10 Lacri-Lube OS 1 gm Q6H PRN Administration Sedation Diltiazem HCl 30 mg 09/16/17 10:00 09/18/17 13:16 Cardizem PO Not Given TID EUSEBIO Heparin Sodium (Porcine) 5,000 units 09/14/17 12:30 09/18/17 10:00 Heparin SC Not Given Q12 EUSEBIO Levetiracetam 1,000 mg/ 110 mls @ 440 mls/hr 09/10/17 06:00 09/18/17 05:43 Dextrose IVPB 440 mls/hr Q12H EUSEBIO Administration Cefepime HCl 2 gm in 100 mls @ 200 mls/hr 09/15/17 11:00 09/18/17 11:00 Maxipime Iv 2 Gm Premix IVPB 09/20/17 11:01 200 mls/hr Q8H EUSEBIO Administration Fluconazole 100 mls @ 100 mls/hr 09/17/17 10:30 09/18/17 11:00 Diflucan Iv 200 Mg/100 Ml Ns IVPB 100 mls/hr DAILY EUSEBIO Administration Diltiazem HCl 125 mg/ Dextrose 125 mls @ 5 mls/hr 09/17/17 14:15 09/18/17 02: 57 IV 5 mg/hr .Q24H EUSEBIO 5 mls/hr Protocol Titration 5 MG/HR Propofol 1,000 mg in 100 mls @ 4.998 mls/hr 09/18/17 13:13 Diprivan IV .Q20H1M PRN TITRATE PER MD ORDER Protocol 12.4 MCG/KG/MIN Vancomycin HCl 1 gm/ Sodium 250 mls @ 133.333 mls/hr 09/19/17 01:00 Chloride IVPB Q12H EUSEBIO Lorazepam 2 mg 09/17/17 09:59 09/17/17 11:16 Ativan IVP 2 mg Q6H PRN Administration Agitation Metoprolol Tartrate 25 mg 09/13/17 13:00 09/18/17 13:19 Lopressor PO Not Given Q8H EUSEBIO Pantoprazole Sodium 40 mg 08/31/17 10:00 09/18/17 09:10 Protonix Inj IVP 40 mg DAILY EUSEBIO Administration Potassium Chloride 20 meq 09/14/17 14:30 09/18/17 10:00 Potassium Chloride Oral Soln PO Not Given DAILY EUSEBIO Scopolamine 1 patch 09/14/17 22:00 09/17/17 22:18 Transderm-Scop TD 1 patch Q3D EUSEBIO Administration Thiamine HCl 100 mg 08/30/17 22:15 09/18/17 11:00 Vitamin B1 Inj IV 100 mg DAILY EUSEBIO Administration - Patient Studies Lab Studies: Microbiology Studies 09/12/17 18:00 Blood Culture - Final Blood-Venous NO GROWTH AFTER 5 DAYS Gram Stain - Final TEST NOT PERFORMED 09/12/17 18:00 Blood Culture - Final Blood-Venous NO GROWTH AFTER 5 DAYS Gram Stain - Final TEST NOT PERFORMED Lab Studies 09/18/17 09/18/17 09/18/17 Range/Units 14:01 08:39 06:38 WBC (4.8-10.8) K/uL RBC (3.80-5.20) Mil/uL Hgb (11.0-16.0) g/dL Hct (34.0-47.0) % MCV (81.0-99.0) fL MCH (27.0-31.0) pg MCHC (33.0-37.0) g/dL RDW (11.5-14.5) % Plt Count (130-400) K/uL MPV (7.2-11.7) fL Neut % (Auto) (50.0-75.0) % Lymph % (Auto) (20.0-40.0) % [place] % (Auto) (0.0-10.0) % Eos % (Auto) (0.0-4.0) % Baso % (Auto) (0.0-2.0) % Neut # (1.8-7.0) K/uL Lymph # (1.0-4.3) K/uL [place] # (0.0-0.8) K/uL Eos # (0.0-0.7) K/uL Baso # (0.0-0.2) K/uL Neutrophils % (Manual) (50-75) % Band Neutrophils % (0-2) % Lymphocytes % (Manual) (20-40) % Monocytes % (Manual) (0-10) % Platelet Estimate (NORMAL) Polychromasia Hypochromasia (manual) Anisocytosis (manual) PT 16.9 H 21.0 H (9.7-12.2) SECONDS INR 1.5 1.8 APTT 33 37 H (21-34) SECONDS Puncture Site pCO2 (35-45) mm/Hg pO2 (80-100) mm/Hg HCO3 (21-28) mmol/L ABG pH (7.35-7.45) ABG Total CO2 (22-28) mmol/L ABG O2 Saturation (95-98) % ABG Base Excess (-2.0-3.0) mmol/L ABG Hemoglobin (11.7-17.4) g/dL ABG Carboxyhemoglobin (0.5-1.5) % POC ABG HHb (Measured) (0.0-5.0) % ABG Methemoglobin (0.0-3.0) % Stephen Test A-a O2 Difference mm/Hg Respiratory Index Hgb O2 Saturation (95.0-98.0) % Vent Mode Mechanical Rate FiO2 % Tidal Volume PEEP Sodium (132-148) mmol/L Potassium (3.6-5.2) mmol/L Chloride (98-107) mmol/L Carbon Dioxide (22-30) mmol/L Anion Gap (10-20) BUN (7-17) mg/dL Creatinine (0.7-1.2) mg/dL Est GFR ( Amer) Est GFR (Non-Af Amer) Random Glucose (65-105) mg/dL Calcium (8.6-10.4) mg/dl Phosphorus (2.5-4.5) mg/dL Magnesium (1.6-2.3) mg/dL Total Bilirubin (0.2-1.3) mg/dL AST (14-36) U/L ALT (9-52) U/L Alkaline Phosphatase (38-126) U/L Total Protein (6.3-8.3) g/dL Albumin (3.5-5.0) g/dL Globulin (2.2-3.9) gm/dL Albumin/Globulin Ratio (1.0-2.1) Phospholipids (151-264) mg/dL C. difficile Ag & Toxin (NEGATIVE) Blood Type O POSITIVE Antibody Screen Negative 09/18/17 09/18/17 09/18/17 Range/Units 06:38 06:38 05:12 WBC 20.8 H (4.8-10.8) K/uL RBC 3.36 L (3.80-5.20) Mil/uL Hgb 9.8 L (11.0-16.0) g/dL Hct 30.4 L (34.0-47.0) % MCV 90.5 (81.0-99.0) fL MCH 29.2 (27.0-31.0) pg MCHC 32.3 L (33.0-37.0) g/dL RDW 15.0 H (11.5-14.5) % Plt Count 369 (130-400) K/uL MPV 9.2 (7.2-11.7) fL Neut % (Auto) 87.5 H (50.0-75.0) % Lymph % (Auto) 6.4 L (20.0-40.0) % [place] % (Auto) 4.8 (0.0-10.0) % Eos % (Auto) 0.6 (0.0-4.0) % Baso % (Auto) 0.7 (0.0-2.0) % Neut # 18.2 H (1.8-7.0) K/uL Lymph # 1.3 (1.0-4.3) K/uL [place] # 1.0 H (0.0-0.8) K/uL Eos # 0.1 (0.0-0.7) K/uL Baso # 0.1 (0.0-0.2) K/uL Neutrophils % (Manual) 81 H (50-75) % Band Neutrophils % 7 H (0-2) % Lymphocytes % (Manual) 4 L (20-40) % Monocytes % (Manual) 8 (0-10) % Platelet Estimate Normal (NORMAL) Polychromasia Slight Hypochromasia (manual) Slight Anisocytosis (manual) Slight PT (9.7-12.2) SECONDS INR APTT (21-34) SECONDS Puncture Site Rr pCO2 31 L (35-45) mm/Hg pO2 83 (80-100) mm/Hg HCO3 28.1 H (21-28) mmol/L ABG pH 7.54 H (7.35-7.45) ABG Total CO2 27.5 (22-28) mmol/L ABG O2 Saturation 99.2 H (95-98) % ABG Base Excess 4.1 H (-2.0-3.0) mmol/L ABG Hemoglobin 10.0 L (11.7-17.4) g/dL ABG Carboxyhemoglobin 2.6 H (0.5-1.5) % POC ABG HHb (Measured) 0.8 (0.0-5.0) % ABG Methemoglobin 1.1 (0.0-3.0) % Stephen Test Pos A-a O2 Difference 163.0 mm/Hg Respiratory Index 2.0 Hgb O2 Saturation 95.5 (95.0-98.0) % Vent Mode Prvc Mechanical Rate 10 FiO2 40.0 % Tidal Volume 450 PEEP 5 Sodium 131 L (132-148) mmol/L Potassium 3.0 L (3.6-5.2) mmol/L Chloride 94 L (98-107) mmol/L Carbon Dioxide 27 (22-30) mmol/L Anion Gap 13 (10-20) BUN 9 (7-17) mg/dL Creatinine 0.2 L (0.7-1.2) mg/dL Est GFR ( Amer) > 60 Est GFR (Non-Af Amer) > 60 Random Glucose 89 (65-105) mg/dL Calcium 11.0 H (8.6-10.4) mg/dl Phosphorus 2.9 (2.5-4.5) mg/dL Magnesium 1.4 L (1.6-2.3) mg/dL Total Bilirubin 1.5 H (0.2-1.3) mg/dL AST 35 (14-36) U/L ALT 29 (9-52) U/L Alkaline Phosphatase 157 H D (38-126) U/L Total Protein 7.4 (6.3-8.3) g/dL Albumin 3.1 L (3.5-5.0) g/dL Globulin 4.3 H (2.2-3.9) gm/dL Albumin/Globulin Ratio 0.7 L (1.0-2.1) Phospholipids (151-264) mg/dL C. difficile Ag & Toxin (NEGATIVE) Blood Type Antibody Screen 09/17/17 09/14/17 Range/Units 16:30 06:04 WBC (4.8-10.8) K/uL RBC (3.80-5.20) Mil/uL Hgb (11.0-16.0) g/dL Hct (34.0-47.0) % MCV (81.0-99.0) fL MCH (27.0-31.0) pg MCHC (33.0-37.0) g/dL RDW (11.5-14.5) % Plt Count (130-400) K/uL MPV (7.2-11.7) fL Neut % (Auto) (50.0-75.0) % Lymph % (Auto) (20.0-40.0) % [place] % (Auto) (0.0-10.0) % Eos % (Auto) (0.0-4.0) % Baso % (Auto) (0.0-2.0) % Neut # (1.8-7.0) K/uL Lymph # (1.0-4.3) K/uL [place] # (0.0-0.8) K/uL Eos # (0.0-0.7) K/uL Baso # (0.0-0.2) K/uL Neutrophils % (Manual) (50-75) % Band Neutrophils % (0-2) % Lymphocytes % (Manual) (20-40) % Monocytes % (Manual) (0-10) % Platelet Estimate (NORMAL) Polychromasia Hypochromasia (manual) Anisocytosis (manual) PT (9.7-12.2) SECONDS INR APTT (21-34) SECONDS Puncture Site pCO2 (35-45) mm/Hg pO2 (80-100) mm/Hg HCO3 (21-28) mmol/L ABG pH (7.35-7.45) ABG Total CO2 (22-28) mmol/L ABG O2 Saturation (95-98) % ABG Base Excess (-2.0-3.0) mmol/L ABG Hemoglobin (11.7-17.4) g/dL ABG Carboxyhemoglobin (0.5-1.5) % POC ABG HHb (Measured) (0.0-5.0) % ABG Methemoglobin (0.0-3.0) % Stephen Test A-a O2 Difference mm/Hg Respiratory Index Hgb O2 Saturation (95.0-98.0) % Vent Mode Mechanical Rate FiO2 % Tidal Volume PEEP Sodium (132-148) mmol/L Potassium (3.6-5.2) mmol/L Chloride (98-107) mmol/L Carbon Dioxide (22-30) mmol/L Anion Gap (10-20) BUN (7-17) mg/dL Creatinine (0.7-1.2) mg/dL Est GFR ( Amer) Est GFR (Non-Af Amer) Random Glucose (65-105) mg/dL Calcium (8.6-10.4) mg/dl Phosphorus (2.5-4.5) mg/dL Magnesium (1.6-2.3) mg/dL Total Bilirubin (0.2-1.3) mg/dL AST (14-36) U/L ALT (9-52) U/L Alkaline Phosphatase (38-126) U/L Total Protein (6.3-8.3) g/dL Albumin (3.5-5.0) g/dL Globulin (2.2-3.9) gm/dL Albumin/Globulin Ratio (1.0-2.1) Phospholipids 173 (151-264) mg/dL C. difficile Ag & Toxin Negative (NEGATIVE) Blood Type Antibody Screen Laboratory Results - last 24 hr 09/14/17 09/17/17 09/18/17 06:04 16:30 05:12 WBC RBC Hgb Hct MCV MCH MCHC RDW Plt Count MPV Neut % (Auto) Lymph % (Auto) [place] % (Auto) Eos % (Auto) Baso % (Auto) Neut # Lymph # [place] # Eos # Baso # Neutrophils % (Manual) Band Neutrophils % Lymphocytes % (Manual) Monocytes % (Manual) Platelet Estimate Polychromasia Hypochromasia (manual) Anisocytosis (manual) PT INR APTT Puncture Site Rr pCO2 31 L pO2 83 HCO3 28.1 H ABG pH 7.54 H ABG Total CO2 27.5 ABG O2 Saturation 99.2 H ABG Base Excess 4.1 H ABG Hemoglobin 10.0 L ABG Carboxyhemoglobin 2.6 H POC ABG HHb (Measured) 0.8 ABG Methemoglobin 1.1 Stephen Test Pos A-a O2 Difference 163.0 Respiratory Index 2.0 Hgb O2 Saturation 95.5 Vent Mode Prvc Mechanical Rate 10 FiO2 40.0 Tidal Volume 450 PEEP 5 Sodium Potassium Chloride Carbon Dioxide Anion Gap BUN Creatinine Est GFR ( Amer) Est GFR (Non-Af Amer) Random Glucose Calcium Phosphorus Magnesium Total Bilirubin AST ALT Alkaline Phosphatase Total Protein Albumin Globulin Albumin/Globulin Ratio Phospholipids 173 C. difficile Ag & Toxin Negative Blood Type Antibody Screen 09/18/17 09/18/17 09/18/17 06:38 06:38 06:38 WBC 20.8 H RBC 3.36 L Hgb 9.8 L Hct 30.4 L MCV 90.5 MCH 29.2 MCHC 32.3 L RDW 15.0 H Plt Count 369 MPV 9.2 Neut % (Auto) 87.5 H Lymph % (Auto) 6.4 L [place] % (Auto) 4.8 Eos % (Auto) 0.6 Baso % (Auto) 0.7 Neut # 18.2 H Lymph # 1.3 [place] # 1.0 H Eos # 0.1 Baso # 0.1 Neutrophils % (Manual) 81 H Band Neutrophils % 7 H Lymphocytes % (Manual) 4 L Monocytes % (Manual) 8 Platelet Estimate Normal Polychromasia Slight Hypochromasia (manual) Slight Anisocytosis (manual) Slight PT 21.0 H INR 1.8 APTT 37 H Puncture Site pCO2 pO2 HCO3 ABG pH ABG Total CO2 ABG O2 Saturation ABG Base Excess ABG Hemoglobin ABG Carboxyhemoglobin POC ABG HHb (Measured) ABG Methemoglobin Stephen Test A-a O2 Difference Respiratory Index Hgb O2 Saturation Vent Mode Mechanical Rate FiO2 Tidal Volume PEEP Sodium 131 L Potassium 3.0 L Chloride 94 L Carbon Dioxide 27 Anion Gap 13 BUN 9 Creatinine 0.2 L Est GFR ( Amer) > 60 Est GFR (Non-Af Amer) > 60 Random Glucose 89 Calcium 11.0 H Phosphorus 2.9 Magnesium 1.4 L Total Bilirubin 1.5 H AST 35 ALT 29 Alkaline Phosphatase 157 H D Total Protein 7.4 Albumin 3.1 L Globulin 4.3 H Albumin/Globulin Ratio 0.7 L Phospholipids C. difficile Ag & Toxin Blood Type Antibody Screen 09/18/17 09/18/17 08:39 14:01 WBC RBC Hgb Hct MCV MCH MCHC RDW Plt Count MPV Neut % (Auto) Lymph % (Auto) [place] % (Auto) Eos % (Auto) Baso % (Auto) Neut # Lymph # [place] # Eos # Baso # Neutrophils % (Manual) Band Neutrophils % Lymphocytes % (Manual) Monocytes % (Manual) Platelet Estimate Polychromasia Hypochromasia (manual) Anisocytosis (manual) PT 16.9 H INR 1.5 APTT 33 Puncture Site pCO2 pO2 HCO3 ABG pH ABG Total CO2 ABG O2 Saturation ABG Base Excess ABG Hemoglobin ABG Carboxyhemoglobin POC ABG HHb (Measured) ABG Methemoglobin Stephen Test A-a O2 Difference Respiratory Index Hgb O2 Saturation Vent Mode Mechanical Rate FiO2 Tidal Volume PEEP Sodium Potassium Chloride Carbon Dioxide Anion Gap BUN Creatinine Est GFR ( Amer) Est GFR (Non-Af Amer) Random Glucose Calcium Phosphorus Magnesium Total Bilirubin AST ALT Alkaline Phosphatase Total Protein Albumin Globulin Albumin/Globulin Ratio Phospholipids C. difficile Ag & Toxin Blood Type O POSITIVE Antibody Screen Negative Critical Care Progress Note - Nutrition Nutrition: Nutrition Category Date Time Status NPO Diet [DIET] Diets 09/18/17 Breakfast Active Attending/Attestation - Attestation I have personally seen and examined this patient.: Yes I have fully participated in the care of the patient.: Yes I have reviewed all pertinent clinical information: Yes Notes (Text): 09/18/17 18:04 Patient seen and examined in the intensive care unit. Case discussed with house staff in the morning No change in mental status Remains intubated on ventilatory support awaiting for tracheostomy Status post transfusion of FFP and vitamin K Continue present treatment
[2017-09-18] MEDS ORDERED: Bupivacaine-Epi 0.25%-1:200,000 PF Inj ONE (08:08)
[2017-09-18] MEDS ORDERED: Lidocaine 1% Inj (20ml) ONE (08:09)
[2017-09-18] MEDS ORDERED: Phytonadione 10 mg/ml Inj (Adult) SC STA (08:48)
[2017-09-18 08:57] LABS: NEUTROPHIL 81 % (50-75); TOTAL CELLS COUNTED 100
[2017-09-18] MEDS ORDERED: Phytonadione 10 mg/ml Inj (Adult) SC ONE (09:00)
--- NOTE | 2017-09-18 09:07 | RAD ---
Chest x-ray single frontal view History: Intubated. Comparison: 09/16/2017 Findings: Lines and tubes in stable position. Mild venous congestion. Patchy consolidative changes at both lung bases. Heart size within normal limits. Gaseous distention of bowel loops in the upper abdomen. Impression: Lines and tubes in stable position. Mild venous congestion. Patchy consolidative changes at both lung bases.
[2017-09-18] MEDS: Potassium Chloride 20 mEq/15 ml LIQ UD PO SCH (10:00)
[2017-09-18] MEDS: Thiamine 100 mg/ml Inj IV SCH (11:00)
[2017-09-18] MEDS: Fluconazole IV 200mg/100 ml NS 100 ML IVPB SCH (11:00)
--- NOTE | 2017-09-18 11:24 | CP.PCM.PN ---
Subjective - Date & Time of Evaluation Date of Evaluation: 09/18/17 Time of Evaluation: 11:15 - Subjective Subjective: Progress note dictated #[id number] Objective - Vital Signs/Intake and Output Vital Signs (last 24 hours): Temp Pulse Resp BP Pulse Ox 97.9 F 118 H 15 91/67 L 100 09/18/17 08:00 09/18/17 10:58 09/18/17 10:58 09/18/17 10:58 09/18/17 10:58 Intake and Output: 09/18/17 09/18/17 06:59 18:59 Intake Total 775 585 Output Total 695 160 Balance 80 425 - Medications Medications: Current Medications Acetaminophen (Tylenol 650mg/20.3ml Solution Ud) 650 mg NG Q6 PRN PRN Reason: Temperature Last Admin: 09/17/17 00:35 Dose: 650 mg Artificial Tears (Lacri-Lube) 1 gm OS Q6H PRN PRN Reason: Sedation Last Admin: 09/06/17 20:10 Dose: 1 gm Diltiazem HCl (Cardizem) 30 mg PO TID [facility] Last Admin: 09/17/17 17:30 Dose: Not Given Heparin Sodium (Porcine) (Heparin) 5,000 units SC Q12 [facility] Last Admin: 09/17/17 22:00 Dose: 5,000 units Levetiracetam 1,000 mg/ (Dextrose) 110 mls @ 440 mls/hr IVPB Q12H [facility] Last Admin: 09/18/17 05:43 Dose: 440 mls/hr Cefepime HCl (Maxipime Iv 2 Gm Premix) 2 gm in 100 mls @ 200 mls/hr IVPB Q8H [facility] Stop: 09/20/17 11:01 Last Admin: 09/18/17 02:11 Dose: 200 mls/hr Vancomycin/Sodium Chloride (Vancomycin 1 Gm/Ns 200 Ml) 1 gm in 200 mls @ 133.333 mls/hr IVPB Q12H [facility] Stop: 09/21/17 13:01 Last Admin: 09/18/17 00:05 Dose: 133.333 mls/hr Fluconazole (Diflucan Iv 200 Mg/100 Ml Ns) 100 mls @ 100 mls/hr IVPB DAILY [facility] Last Admin: 09/17/17 10:42 Dose: Not Given Propofol (Diprivan) 1,000 mg in 100 mls @ 1.973 mls/hr IV .Q24H PRN; Protocol; 5 MCG/KG/MIN PRN Reason: TITRATE PER MD ORDER Last Titration: 09/18/17 02:58 Dose: 12.67 mcg/kg/min, 5 mls/hr Diltiazem HCl 125 mg/ Dextrose 125 mls @ 5 mls/hr IV .Q24H [facility]; 5 MG/HR PRN Reason: Protocol Last Titration: 09/18/17 02:57 Dose: 5 mg/hr, 5 mls/hr Potassium Chloride (Potassium Chloride 20 Meq/100 Ml) 20 meq in 100 mls @ 50 mls/hr IVPB ONCE ONE Stop: 09/18/17 11:59 Last Admin: 09/18/17 09:07 Dose: 50 mls/hr Lorazepam (Ativan) 2 mg IVP Q6H PRN PRN Reason: Agitation Last Admin: 09/17/17 11:16 Dose: 2 mg Metoprolol Tartrate (Lopressor) 25 mg PO Q8H [facility] Last Admin: 09/18/17 05:42 Dose: Not Given Pantoprazole Sodium (Protonix Inj) 40 mg IVP DAILY [facility] Last Admin: 09/18/17 09:10 Dose: 40 mg Potassium Chloride (Potassium Chloride Oral Soln) 20 meq PO DAILY [facility] Last Admin: 09/17/17 09:01 Dose: 20 meq Scopolamine (Transderm-Scop) 1 patch TD Q3D [facility] Last Admin: 09/17/17 22:18 Dose: 1 patch Thiamine HCl (Vitamin B1 Inj) 100 mg IV DAILY [facility] Last Admin: 09/17/17 09:02 Dose: 100 mg - Labs Labs: 09/18/17 06:38 09/18/17 06:38 PT 21.0 SECONDS (9.7-12.2) H 09/18/17 06:38 INR 1.8 09/18/17 06:38 APTT 37 SECONDS (21-34) H 09/18/17 06:38
[2017-09-18 14:19] LABS: INR 1.5
[2017-09-18] MEDS: Acetaminophen 650mg/20.3ml solution UD NG PRN (21:08)
--- NOTE | 2017-09-19 00:36 | PN ---
DATE: 09/18/2017 SUBJECTIVE: The patient was seen and examined at bedside. The patient remains intubated, unresponsive. PHYSICAL EXAMINATION: VITAL SIGNS: Blood pressure 99/60, pulse 133, temperature 100.5, respirations 21 on mechanical ventilation, tidal volume 450, FiO2 of 40, sed rate 10 and PEEP of 5. Intake is 1023, output is 1095. HEENT: Pupils sluggishly reacting to light, no icterus, positive pallor. NECK: Supple. LUNGS: Bilateral vesicular breath sounds. No wheezing. Basal crackles heard. CARDIOVASCULAR: S1 and S2 present, tachycardic. ABDOMEN: Soft. Bowel sounds present. CENTRAL NERVOUS SYSTEM: Sedated, intubated, unresponsive, not responding to the painful stimuli or verbal stimuli. Involuntary movements of the eyes and upper and lower extremities. MEDICATIONS: Include Tylenol as needed for temperature, artificial tears, cefepime 2 g IV q.8 hours, Cardizem 30 mg p.o. t.i.d., Cardizem drip 5 mg per hour, Diflucan 200 mg IV daily, heparin for DVT prophylaxis, metoprolol 25 mg p.o. q.8 hours, Ativan 2 mg IV push, Protonix, Keppra, KCl 20 mEq daily, propofol, and vancomycin 1 g q.12 hours. LABORATORY DATA: Labs done from this morning; WBC 20.8, hemoglobin 9.8, hematocrit 30.4 and platelets 369. PT 21, INR 1.8, PTT 37. Sodium 131, potassium 3.0, chloride 94, bicarbonate 27, BUN 9, creatinine 0.2, glucose 89, calcium 11, phosphorus 2.9, magnesium 1.4, total bili 1.5, AST 35, ALT 29, alkaline phosphatase 157. C. diff negative. 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 Electrolytes have been replaced. Trach and PEG were postponed multiple times. Even today, the procedures were postponed. The patient received FFP for elevated INR. Neuro status, no change. On multiple antiseizure medications. Continue with vent support. Continue with current antibiotics. Continue with gastrointestinal and deep venous thrombosis prophylaxis. For possible trach and PEG in a.m., continue with supportive care. Discussed with RN and case management. Phoenix Caballero MD
[2017-09-19] MEDS: Cefepime IV 2 gm in Dextrose 2 GM/100 ML BAG IVPB SCH ×3 (03:00→19:01)
[2017-09-19 06:20] LABS: ABG ALLEN TEST POS; ABG MECHANICAL RATE 10; ARTERIAL BLOOD GAS MODE PRVC; ARTERIAL BLOOD HGB O2 SAT 96.9 % (95.0-98.0); ATERIAL BLOOD GAS PEEP 5; CARBOXYHEMOGLOBIN 1.8 % (0.5-1.5); DRAW SITE LR; HHB 0.2 % (0.0-5.0); METHEMOGLOBIN 1.1 % (0.0-3.0)
[2017-09-19 06:34] LABS: BASO # 0.1 K/uL (0.0-0.2); BASO % 0.5 % (0.0-2.0); EOS # 0.3 K/uL (0.0-0.7); EOS % 1.9 % (0.0-4.0); HEMATOCRIT 25.2 % (34.0-47.0); LYMPH # 1.3 K/uL (1.0-4.3); LYMPH % 8.7 % (20.0-40.0); MEAN CELL VOLUME 88.9 fL (81.0-99.0); MEAN CORPUSCULAR HEMOGLOBIN 29.1 pg (27.0-31.0); MEAN CORPUSCULAR HGB CONC 32.8 g/dL (33.0-37.0); MEAN PLATELET VOLUME 8.3 fL (7.2-11.7); MONO # 0.9 K/uL (0.0-0.8); MONO % 6.1 % (0.0-10.0); NRBC % 0.1 % (0.0-2.0); PLATELET COUNT 366 K/uL (130-400); RED CELL DISTRIBUTION WIDTH 14.8 % (11.5-14.5); WHITE BLOOD COUNT 14.7 K/uL (4.8-10.8)
[2017-09-19 06:48] LABS: ALB/GLOB RATIO 0.7 (1.0-2.1); ALKALINE PHOSPHATASE 115 U/L (38-126); ALT/SGPT 27 U/L (9-52); AST/SGOT 25 U/L (14-36); BILIRUBIN,TOTAL 0.8 mg/dL (0.2-1.3); BLOOD UREA NITROGEN 9 mg/dL (7-17); CALCIUM 9.8 mg/dl (8.6-10.4); CARBON DIOXIDE 29 mmol/L (22-30); CHLORIDE 94 mmol/L (98-107); GFR AFRICAN-AMERICAN > 60; GLUCOSE,RANDOM 97 mg/dL (65-105); MAGNESIUM 1.6 mg/dL (1.6-2.3); PHOSPHOROUS 3.1 mg/dL (2.5-4.5); POTASSIUM 2.9 mmol/L (3.6-5.2); SODIUM 131 mmol/L (132-148); TOTAL PROTEIN 6.9 g/dL (6.3-8.3)
[2017-09-19] MEDS ORDERED: Magnesium Sulfate 1 gm in D5W 1 GM/100 ML BAG IVPB ONE (07:33)
[2017-09-19 07:53] LABS: EOSINOPHIL 2 % (0-4); MYELOCYTE 1 % (0-0); NEUTROPHIL 81 % (50-75); TOTAL CELLS COUNTED 100
--- NOTE | 2017-09-19 08:37 | RAD ---
Chest x-ray single frontal view History: Ventilator. Comparison: 09/18/2017 Findings: Lines and tubes stable position. Mild venous congestion. Patchy increased markings at both lung bases. Right hilar prominence. Degenerative changes in the spine and shoulders. Impression: Lines and tubes stable position. Mild venous congestion. Patchy increased markings at both lung bases. Right hilar prominence.
[2017-09-19] MEDS: Thiamine 100 mg/ml Inj IV SCH (09:20)
[2017-09-19] MEDS: Potassium Chloride 20 mEq/15 ml LIQ UD PO SCH (09:22)
[2017-09-19] MEDS: Fluconazole IV 200mg/100 ml NS 100 ML IVPB SCH (09:25)
[2017-09-19] MEDS ORDERED: Sodium Chloride 0.9% 500 ML IV ONE (11:15)
[2017-09-19] MEDS ORDERED: Midazolam 2 MG/2 ML VIAL ONE (11:19)
--- NOTE | 2017-09-19 11:19 | CP.CCUPN ---
<Liset Massey - Last Filed: 09/19/17 13:54> CCU Subjective - Physician Review Subjective (Free Text): Patient seen and examined at bedside. Patient currently intubated. ROS unobtainable due to patient's current clinical status. CCU Objective - Vital Signs / Intake & Output Vital Signs (Last 4 hours): Vital Signs Temp Pulse Resp BP Pulse Ox 09/19/17 10:58 110/71 09/19/17 10:49 125 H 23 100 09/19/17 10:45 123 H 17 100 09/19/17 10:43 122 H 16 108/73 100 09/19/17 10:30 124 H 17 100 09/19/17 10:28 123 H 17 100/65 100 09/19/17 10:15 121 H 22 100 09/19/17 10:13 122 H 19 102/68 100 09/19/17 10:00 98.6 F 124 H 14 98 09/19/17 09:58 124 H 17 101/60 99 09/19/17 09:45 117 H 19 100 09/19/17 09:43 120 H 17 98/65 L 97 09/19/17 09:30 98.4 F 125 H 24 100 09/19/17 09:28 121 H 12 100/69 100 09/19/17 09:15 98 F 119 H 18 100 09/19/17 09:13 119 H 17 90/57 L 100 09/19/17 09:00 98.4 F 120 H 18 100 09/19/17 08:58 119 H 17 90/59 L 100 09/19/17 08:45 118 H 16 99 09/19/17 08:43 117 H 21 95/64 L 99 09/19/17 08:30 117 H 26 H 99 09/19/17 08:28 117 H 18 100/66 100 09/19/17 08:13 119 H 18 102/66 100 09/19/17 08:00 98.4 F 118 H 22 100 09/19/17 07:58 119 H 21 100/67 100 09/19/17 07:43 118 H 19 113/68 99 09/19/17 07:30 118 H 26 H 100 09/19/17 07:28 116 H 22 105/67 100 09/19/17 07:14 114 H 23 108/86 100 Intake and Output (Last 8hrs): Intake & Output 09/18/17 09/19/17 09/19/17 22:59 06:59 14:59 Intake Total 180 735 840 Output Total 370 180 130 Balance -190 555 710 Weight 152 lb 11.2 oz Intake: IV 115 Intake, IV Amount 40 490 325 Right Distal Port 0 Internal Jugular Right Internal Jugular 0 Right Medial Port 450 300 Internal Jugular Right Proximal Port 40 40 25 Internal Jugular Tube Feeding 140 70 0 Blood Product 515 Other 60 Output: Urine 150 180 130 Urethral (Andino) 150 180 130 Stool 220 0 Emesis 0 0 - Physical Exam Head: Positive for: Atraumatic, Normocephalic Pupils: Positive for: Sluggish Extroacular Muscles: Negative for: EOMI Mouth: Positive for: Moist Mucous Membranes Respiratory/Chest: Positive for: Good Air Exchange, Other (intubated ) Cardiovascular: Positive for: Normal S1, S2, Tachycardic Abdomen: Positive for: Normal Bowel Sounds. Negative for: Distention Upper Extremity: Negative for: Edema Lower Extremity: Negative for: Edema Neurological: Negative for: GCS=15, Speech Normal Skin: Positive for: Normal Color Psychiatric: Negative for: Alert, Oriented x 3 - Medications Active Medications: Active Medications Generic Name Dose Route Start Last Admin Trade Name Freq PRN Reason Stop Dose Admin Acetaminophen 650 mg 09/15/17 03:51 09/18/17 21:08 Tylenol 650mg/20.3ml Solution Ud NG 650 mg Q6 PRN Administration Temperature Artificial Tears 1 gm 08/31/17 12:00 09/06/17 20:10 Lacri-Lube OS 1 gm Q6H PRN Administration Sedation Diltiazem HCl 30 mg 09/16/17 10:00 09/19/17 09:15 Cardizem PO Not Given TID EUSEBIO Heparin Sodium (Porcine) 5,000 units 09/14/17 12:30 09/19/17 09:16 Heparin SC Not Given Q12 EUSEBIO Levetiracetam 1,000 mg/ 110 mls @ 440 mls/hr 09/10/17 06:00 09/19/17 05:23 Dextrose IVPB 440 mls/hr Q12H EUSEBIO Administration Cefepime HCl 2 gm in 100 mls @ 200 mls/hr 09/15/17 11:00 09/19/17 03:00 Maxipime Iv 2 Gm Premix IVPB 09/20/17 11:01 200 mls/hr Q8H EUSEBIO Administration Fluconazole 100 mls @ 100 mls/hr 09/17/17 10:30 09/19/17 09:25 Diflucan Iv 200 Mg/100 Ml Ns IVPB 100 mls/hr DAILY EUSEBIO Administration Diltiazem HCl 125 mg/ Dextrose 125 mls @ 5 mls/hr 09/17/17 14:15 09/19/17 05: 23 IV 5 mg/hr .Q24H EUSEBIO 5 mls/hr Protocol Administration 5 MG/HR Propofol 1,000 mg in 100 mls @ 4.998 mls/hr 09/18/17 13:13 Diprivan IV .Q20H1M PRN TITRATE PER MD ORDER Protocol 12.4 MCG/KG/MIN Vancomycin HCl 1 gm/ Sodium 250 mls @ 133.333 mls/hr 09/19/17 01:00 09/19/17 00:08 Chloride IVPB 133.333 mls/hr Q12H EUSEBIO Administration Potassium Chloride 20 meq in 100 mls @ 50 mls/hr 09/19/17 08:00 09/19/17 08: 45 Potassium Chloride 20 Meq/100 Ml IVPB 09/19/17 13:59 50 mls/hr Q2H EUSEBIO Administration Lorazepam 2 mg 09/17/17 09:59 09/19/17 04:15 Ativan IVP 2 mg Q6H PRN Administration Agitation Metoprolol Tartrate 25 mg 09/13/17 13:00 09/19/17 05:24 Lopressor PO Not Given Q8H EUSEBIO Pantoprazole Sodium 40 mg 08/31/17 10:00 09/19/17 09:21 Protonix Inj IVP 40 mg DAILY EUSEBIO Administration Potassium Chloride 20 meq 09/14/17 14:30 09/19/17 09:22 Potassium Chloride Oral Soln PO Not Given DAILY EUSEBIO Scopolamine 1 patch 09/14/17 22:00 09/17/17 22:18 Transderm-Scop TD 1 patch Q3D EUSEBIO Administration Thiamine HCl 100 mg 08/30/17 22:15 09/19/17 09:20 Vitamin B1 Inj IV 100 mg DAILY EUSEBIO Administration - Patient Studies Lab Studies: Lab Studies 09/19/17 09/19/17 09/19/17 Range/Units 10:10 06:22 06:22 WBC 14.7 H (4.8-10.8) K/uL RBC 2.83 L (3.80-5.20) Mil/uL Hgb 8.3 L (11.0-16.0) g/dL Hct 25.2 L (34.0-47.0) % MCV 88.9 (81.0-99.0) fL MCH 29.1 (27.0-31.0) pg MCHC 32.8 L (33.0-37.0) g/dL RDW 14.8 H (11.5-14.5) % Plt Count 366 (130-400) K/uL MPV 8.3 (7.2-11.7) fL Neut % (Auto) 82.8 H (50.0-75.0) % Lymph % (Auto) 8.7 L (20.0-40.0) % Swain % (Auto) 6.1 (0.0-10.0) % Eos % (Auto) 1.9 (0.0-4.0) % Baso % (Auto) 0.5 (0.0-2.0) % Neut # 12.2 H (1.8-7.0) K/uL Lymph # 1.3 (1.0-4.3) K/uL Swain # 0.9 H (0.0-0.8) K/uL Eos # 0.3 (0.0-0.7) K/uL Baso # 0.1 (0.0-0.2) K/uL Neutrophils % (Manual) 81 H (50-75) % Lymphocytes % (Manual) 7 L (20-40) % Monocytes % (Manual) 9 (0-10) % Eosinophils % (Manual) 2 (0-4) % Myelocytes % 1 H (0-0) % Platelet Estimate Normal (NORMAL) Polychromasia Slight Hypochromasia (manual) Moderate PT (9.7-12.2) SECONDS INR APTT (21-34) SECONDS Puncture Site pCO2 (35-45) mm/Hg pO2 (80-100) mm/Hg HCO3 (21-28) mmol/L ABG pH (7.35-7.45) ABG Total CO2 (22-28) mmol/L ABG O2 Saturation (95-98) % ABG Base Excess (-2.0-3.0) mmol/L ABG Hemoglobin (11.7-17.4) g/dL ABG Carboxyhemoglobin (0.5-1.5) % POC ABG HHb (Measured) (0.0-5.0) % ABG Methemoglobin (0.0-3.0) % Stephen Test A-a O2 Difference mm/Hg Respiratory Index Hgb O2 Saturation (95.0-98.0) % Vent Mode Mechanical Rate FiO2 % Tidal Volume PEEP Sodium 131 L (132-148) mmol/L Potassium 2.9 L (3.6-5.2) mmol/L Chloride 94 L (98-107) mmol/L Carbon Dioxide 29 (22-30) mmol/L Anion Gap 11 (10-20) BUN 9 (7-17) mg/dL Creatinine 0.3 L (0.7-1.2) mg/dL Est GFR ( Amer) > 60 Est GFR (Non-Af Amer) > 60 Random Glucose 97 (65-105) mg/dL Calcium 9.8 (8.6-10.4) mg/dl Phosphorus 3.1 (2.5-4.5) mg/dL Magnesium 1.6 (1.6-2.3) mg/dL Total Bilirubin 0.8 (0.2-1.3) mg/dL AST 25 (14-36) U/L ALT 27 (9-52) U/L Alkaline Phosphatase 115 (38-126) U/L Total Protein 6.9 (6.3-8.3) g/dL Albumin 2.9 L (3.5-5.0) g/dL Globulin 4.0 H (2.2-3.9) gm/dL Albumin/Globulin Ratio 0.7 L (1.0-2.1) Phospholipids (151-264) mg/dL Urine HCG, Qual Negative (NEGATIVE) C. difficile Ag & Toxin (NEGATIVE) Blood Type Antibody Screen 09/19/17 09/18/17 09/18/17 Range/Units 05:27 14:01 08:39 WBC (4.8-10.8) K/uL RBC (3.80-5.20) Mil/uL Hgb (11.0-16.0) g/dL Hct (34.0-47.0) % MCV (81.0-99.0) fL MCH (27.0-31.0) pg MCHC (33.0-37.0) g/dL RDW (11.5-14.5) % Plt Count (130-400) K/uL MPV (7.2-11.7) fL Neut % (Auto) (50.0-75.0) % Lymph % (Auto) (20.0-40.0) % Swain % (Auto) (0.0-10.0) % Eos % (Auto) (0.0-4.0) % Baso % (Auto) (0.0-2.0) % Neut # (1.8-7.0) K/uL Lymph # (1.0-4.3) K/uL Swain # (0.0-0.8) K/uL Eos # (0.0-0.7) K/uL Baso # (0.0-0.2) K/uL Neutrophils % (Manual) (50-75) % Lymphocytes % (Manual) (20-40) % Monocytes % (Manual) (0-10) % Eosinophils % (Manual) (0-4) % Myelocytes % (0-0) % Platelet Estimate (NORMAL) Polychromasia Hypochromasia (manual) PT 16.9 H (9.7-12.2) SECONDS INR 1.5 APTT 33 (21-34) SECONDS Puncture Site Lr pCO2 44 (35-45) mm/Hg pO2 143 H (80-100) mm/Hg HCO3 28.6 H (21-28) mmol/L ABG pH 7.44 (7.35-7.45) ABG Total CO2 31.3 H (22-28) mmol/L ABG O2 Saturation 99.8 H (95-98) % ABG Base Excess 4.8 H (-2.0-3.0) mmol/L ABG Hemoglobin 18.2 H (11.7-17.4) g/dL ABG Carboxyhemoglobin 1.8 H (0.5-1.5) % POC ABG HHb (Measured) 0.2 (0.0-5.0) % ABG Methemoglobin 1.1 (0.0-3.0) % Stehpen Test Pos A-a O2 Difference 87.0 mm/Hg Respiratory Index 0.6 Hgb O2 Saturation 96.9 (95.0-98.0) % Vent Mode Prvc Mechanical Rate 10 FiO2 40.0 % Tidal Volume 400 PEEP 5 Sodium (132-148) mmol/L Potassium (3.6-5.2) mmol/L Chloride (98-107) mmol/L Carbon Dioxide (22-30) mmol/L Anion Gap (10-20) BUN (7-17) mg/dL Creatinine (0.7-1.2) mg/dL Est GFR ( Amer) Est GFR (Non-Af Amer) Random Glucose (65-105) mg/dL Calcium (8.6-10.4) mg/dl Phosphorus (2.5-4.5) mg/dL Magnesium (1.6-2.3) mg/dL Total Bilirubin (0.2-1.3) mg/dL AST (14-36) U/L ALT (9-52) U/L Alkaline Phosphatase (38-126) U/L Total Protein (6.3-8.3) g/dL Albumin (3.5-5.0) g/dL Globulin (2.2-3.9) gm/dL Albumin/Globulin Ratio (1.0-2.1) Phospholipids (151-264) mg/dL Urine HCG, Qual (NEGATIVE) C. difficile Ag & Toxin (NEGATIVE) Blood Type O POSITIVE Antibody Screen Negative 09/17/17 09/14/17 Range/Units 16:30 06:04 WBC (4.8-10.8) K/uL RBC (3.80-5.20) Mil/uL Hgb (11.0-16.0) g/dL Hct (34.0-47.0) % MCV (81.0-99.0) fL MCH (27.0-31.0) pg MCHC (33.0-37.0) g/dL RDW (11.5-14.5) % Plt Count (130-400) K/uL MPV (7.2-11.7) fL Neut % (Auto) (50.0-75.0) % Lymph % (Auto) (20.0-40.0) % Swain % (Auto) (0.0-10.0) % Eos % (Auto) (0.0-4.0) % Baso % (Auto) (0.0-2.0) % Neut # (1.8-7.0) K/uL Lymph # (1.0-4.3) K/uL Swain # (0.0-0.8) K/uL Eos # (0.0-0.7) K/uL Baso # (0.0-0.2) K/uL Neutrophils % (Manual) (50-75) % Lymphocytes % (Manual) (20-40) % Monocytes % (Manual) (0-10) % Eosinophils % (Manual) (0-4) % Myelocytes % (0-0) % Platelet Estimate (NORMAL) Polychromasia Hypochromasia (manual) PT (9.7-12.2) SECONDS INR APTT (21-34) SECONDS Puncture Site pCO2 (35-45) mm/Hg pO2 (80-100) mm/Hg HCO3 (21-28) mmol/L ABG pH (7.35-7.45) ABG Total CO2 (22-28) mmol/L ABG O2 Saturation (95-98) % ABG Base Excess (-2.0-3.0) mmol/L ABG Hemoglobin (11.7-17.4) g/dL ABG Carboxyhemoglobin (0.5-1.5) % POC ABG HHb (Measured) (0.0-5.0) % ABG Methemoglobin (0.0-3.0) % Stephen Test A-a O2 Difference mm/Hg Respiratory Index Hgb O2 Saturation (95.0-98.0) % Vent Mode Mechanical Rate FiO2 % Tidal Volume PEEP Sodium (132-148) mmol/L Potassium (3.6-5.2) mmol/L Chloride (98-107) mmol/L Carbon Dioxide (22-30) mmol/L Anion Gap (10-20) BUN (7-17) mg/dL Creatinine (0.7-1.2) mg/dL Est GFR ( Amer) Est GFR (Non-Af Amer) Random Glucose (65-105) mg/dL Calcium (8.6-10.4) mg/dl Phosphorus (2.5-4.5) mg/dL Magnesium (1.6-2.3) mg/dL Total Bilirubin (0.2-1.3) mg/dL AST (14-36) U/L ALT (9-52) U/L Alkaline Phosphatase (38-126) U/L Total Protein (6.3-8.3) g/dL Albumin (3.5-5.0) g/dL Globulin (2.2-3.9) gm/dL Albumin/Globulin Ratio (1.0-2.1) Phospholipids 173 (151-264) mg/dL Urine HCG, Qual (NEGATIVE) C. difficile Ag & Toxin Negative (NEGATIVE) Blood Type Antibody Screen Laboratory Results - last 24 hr 09/14/17 09/17/17 09/18/17 06:04 16:30 08:39 WBC RBC Hgb Hct MCV MCH MCHC RDW Plt Count MPV Neut % (Auto) Lymph % (Auto) Swain % (Auto) Eos % (Auto) Baso % (Auto) Neut # Lymph # Swain # Eos # Baso # Neutrophils % (Manual) Lymphocytes % (Manual) Monocytes % (Manual) Eosinophils % (Manual) Myelocytes % Platelet Estimate Polychromasia Hypochromasia (manual) PT INR APTT Puncture Site pCO2 pO2 HCO3 ABG pH ABG Total CO2 ABG O2 Saturation ABG Base Excess ABG Hemoglobin ABG Carboxyhemoglobin POC ABG HHb (Measured) ABG Methemoglobin Stephen Test A-a O2 Difference Respiratory Index Hgb O2 Saturation Vent Mode Mechanical Rate FiO2 Tidal Volume PEEP Sodium Potassium Chloride Carbon Dioxide Anion Gap BUN Creatinine Est GFR ( Amer) Est GFR (Non-Af Amer) Random Glucose Calcium Phosphorus Magnesium Total Bilirubin AST ALT Alkaline Phosphatase Total Protein Albumin Globulin Albumin/Globulin Ratio Phospholipids 173 Urine HCG, Qual C. difficile Ag & Toxin Negative Blood Type O POSITIVE Antibody Screen Negative 09/18/17 09/19/17 09/19/17 14:01 05:27 06:22 WBC 14.7 H RBC 2.83 L Hgb 8.3 L Hct 25.2 L MCV 88.9 MCH 29.1 MCHC 32.8 L RDW 14.8 H Plt Count 366 MPV 8.3 Neut % (Auto) 82.8 H Lymph % (Auto) 8.7 L Swain % (Auto) 6.1 Eos % (Auto) 1.9 Baso % (Auto) 0.5 Neut # 12.2 H Lymph # 1.3 Swain # 0.9 H Eos # 0.3 Baso # 0.1 Neutrophils % (Manual) 81 H Lymphocytes % (Manual) 7 L Monocytes % (Manual) 9 Eosinophils % (Manual) 2 Myelocytes % 1 H Platelet Estimate Normal Polychromasia Slight Hypochromasia (manual) Moderate PT 16.9 H INR 1.5 APTT 33 Puncture Site Lr pCO2 44 pO2 143 H HCO3 28.6 H ABG pH 7.44 ABG Total CO2 31.3 H ABG O2 Saturation 99.8 H ABG Base Excess 4.8 H ABG Hemoglobin 18.2 H ABG Carboxyhemoglobin 1.8 H POC ABG HHb (Measured) 0.2 ABG Methemoglobin 1.1 Stephen Test Pos A-a O2 Difference 87.0 Respiratory Index 0.6 Hgb O2 Saturation 96.9 Vent Mode Prvc Mechanical Rate 10 FiO2 40.0 Tidal Volume 400 PEEP 5 Sodium Potassium Chloride Carbon Dioxide Anion Gap BUN Creatinine Est GFR ( Amer) Est GFR (Non-Af Amer) Random Glucose Calcium Phosphorus Magnesium Total Bilirubin AST ALT Alkaline Phosphatase Total Protein Albumin Globulin Albumin/Globulin Ratio Phospholipids Urine HCG, Qual C. difficile Ag & Toxin Blood Type Antibody Screen 09/19/17 09/19/17 06:22 10:10 WBC RBC Hgb Hct MCV MCH MCHC RDW Plt Count MPV Neut % (Auto) Lymph % (Auto) Swain % (Auto) Eos % (Auto) Baso % (Auto) Neut # Lymph # Swain # Eos # Baso # Neutrophils % (Manual) Lymphocytes % (Manual) Monocytes % (Manual) Eosinophils % (Manual) Myelocytes % Platelet Estimate Polychromasia Hypochromasia (manual) PT INR APTT Puncture Site pCO2 pO2 HCO3 ABG pH ABG Total CO2 ABG O2 Saturation ABG Base Excess ABG Hemoglobin ABG Carboxyhemoglobin POC ABG HHb (Measured) ABG Methemoglobin Stephen Test A-a O2 Difference Respiratory Index Hgb O2 Saturation Vent Mode Mechanical Rate FiO2 Tidal Volume PEEP Sodium 131 L Potassium 2.9 L Chloride 94 L Carbon Dioxide 29 Anion Gap 11 BUN 9 Creatinine 0.3 L Est GFR ( Amer) > 60 Est GFR (Non-Af Amer) > 60 Random Glucose 97 Calcium 9.8 Phosphorus 3.1 Magnesium 1.6 Total Bilirubin 0.8 AST 25 ALT 27 Alkaline Phosphatase 115 Total Protein 6.9 Albumin 2.9 L Globulin 4.0 H Albumin/Globulin Ratio 0.7 L Phospholipids Urine HCG, Qual Negative C. difficile Ag & Toxin Blood Type Antibody Screen Fingerstick Blood Sugar Results: 123 Review of Systems - Review of Systems Systems not reviewed;Unavailable: Intubated Critical Care Progress Note - Nutrition Nutrition: Nutrition Category Date Time Status NPO Diet [DIET] Diets 09/18/17 Breakfast Active Assessment/Plan - Assessment and Plan (Free Text) Assessment: 36 year old female with past medical history of anemia and alcohol abuse, who was found unconscious by . EMS was called and patient was found to be in Asystole, ACLS protocol was initiated and 2 rounds of epinephrine and then ROSC. Patient was unconscious in the ED. Subsequently, patient was admitted to the ICU and hypothermia protocol was initiated. Plan: Neuro: Intubated, Acute seizures Neurologist, Dr. Pugh---> help appreciated * Management as per recommendation Medication/Management: * Keppra 500mg IV Q12H * Propofol (Titratable) Imaging: * EEG (08/31/17): globally abnormal EEG because of persistent spike and wave activities consistent with status epilepticus. Please correlate the findings with neurological and radiological studies * Cerebral blood flow (09/03/17): does not conform to nuclear medicine diagnosis of brain . There is a faint cerebral flow, the study is considered technically suboptimal for reasons related to technique and poor visualization of carotid arteries. * CT head w/o contrast (09/03/17): No mass effect or edema. No atrophy or chronic microvascular. * EEG (09/06): status epilepticus * head CT (09/12/17): asymmetric low attenuation in the L basal ganglia could represent anoxic injury. Mild global parenchymal volume loss, advanced for the patient's age. Cardio: Cardiopulmonary Arrest, tachycardia Management: * Intubated * Hypothermia protocol was initiated * Lopressor 25mg po q8h * Cardizem drip started (09/17) Pulm: Respiratory distress secondary to cardiac arrest * Intubated * sputum culture: staph * D Dimer: [id number] * CTA: no evidence of PE, bibasilar consolidation. Upper lobe interstitial infiltrates. * tidal volume decreased to 400 on 09/18 * Trach placement by Dr. Dockery today GI: Diarrhea * C. Dif negative (09/03) * repeat C. dif (09/17) negative * Dr. Dockery consulted for PEG placement Renal: Electrolyte imbalance Nephrology, Dr. Ramos---> Help appreciated * Management as per recommendation * electrolytes repleted as needed * 09/19: KCl 20mEq x3 today for K 2.9 Heme: anemia * H/H: on 09/12 dropped to 7.3/22.5 from 8.1/24.5- patient was transfused 2 u PRBCs * H/H: 9.8/30.4 * 09/18- INR: 1.8, 2u FFP transfused and Vit K 10mg sc given * 09/19: INR: 1.5, 2 units FFP HgB dropped to 8.3 from 9.8, transfuse 1 u PRBCs ID: * urine: yeast * sputum: staph aureus * Cefepime 2gm q8h (started on 09/15) * Vancomycin 1gm q12h * 09/12: repeat cultures: urine- yeast species, blood negative * f/u repeat sputum culture on 09/19 Psych: Alcohol abuse disorder * Thiamine 100mg IV daily Prophylaxis measures: * R IJ in place * DVT: SCDs, Heparin 5,000 units SC Q12H * GI: Protonix 40mg IV daily * tube feeds: jevity <Burton Walters S - Last Filed: 09/19/17 16:32> CCU Objective - Vital Signs / Intake & Output Vital Signs (Last 4 hours): Vital Signs Temp Pulse Resp BP 09/19/17 15:58 97.4 F L 129 H 26 H 110/69 09/19/17 15:30 97.5 F L 128 H 26 H 110/68 09/19/17 14:30 97.4 F L 125 H 23 106/72 09/19/17 14:15 98.4 F 123 H 24 106/73 09/19/17 14:00 98.1 F 122 H 21 109/73 09/19/17 13:45 98.4 F 124 H 21 111/79 Intake and Output (Last 8hrs): Intake & Output 09/19/17 09/19/17 09/19/17 06:59 14:59 22:59 Intake Total 735 1100 175 Output Total 180 160 Balance 555 940 175 Weight 152 lb 11.2 oz Intake: IV 115 Intake, IV Amount 490 435 Right Medial Port 450 400 Internal Jugular Right Proximal Port 40 35 Internal Jugular Tube Feeding 70 0 Blood Product 665 175 Red Blood Cells Cpd As1 150 175 Lr Unit [id number] Other 60 Output: Urine 180 160 Urethral (Andino) 180 160 Stool 0 Emesis 0 - Medications Active Medications: Active Medications Generic Name Dose Route Start Last Admin Trade Name Freq PRN Reason Stop Dose Admin Acetaminophen 650 mg 09/15/17 03:51 09/18/17 21:08 Tylenol 650mg/20.3ml Solution Ud NG 650 mg Q6 PRN Administration Temperature Artificial Tears 1 gm 08/31/17 12:00 09/06/17 20:10 Lacri-Lube OS 1 gm Q6H PRN Administration Sedation Diltiazem HCl 30 mg 09/16/17 10:00 09/19/17 15:47 Cardizem PO Not Given TID EUSEBIO Heparin Sodium (Porcine) 5,000 units 09/14/17 12:30 09/19/17 09:16 Heparin SC Not Given Q12 EUSEBIO Levetiracetam 1,000 mg/ 110 mls @ 440 mls/hr 09/10/17 06:00 09/19/17 05:23 Dextrose IVPB 440 mls/hr Q12H EUSEBIO Administration Cefepime HCl 2 gm in 100 mls @ 200 mls/hr 09/15/17 11:00 09/19/17 13:53 Maxipime Iv 2 Gm Premix IVPB 09/20/17 11:01 200 mls/hr Q8H EUSEBIO Administration Fluconazole 100 mls @ 100 mls/hr 09/17/17 10:30 09/19/17 09:25 Diflucan Iv 200 Mg/100 Ml Ns IVPB 100 mls/hr DAILY EUSEBIO Administration Diltiazem HCl 125 mg/ Dextrose 125 mls @ 5 mls/hr 09/17/17 14:15 09/19/17 05: 23 IV 5 mg/hr .Q24H EUSEBIO 5 mls/hr Protocol Administration 5 MG/HR Propofol 1,000 mg in 100 mls @ 4.998 mls/hr 09/18/17 13:13 Diprivan IV .Q20H1M PRN TITRATE PER MD ORDER Protocol 12.4 MCG/KG/MIN Vancomycin HCl 1 gm/ Sodium 250 mls @ 133.333 mls/hr 09/19/17 01:00 09/19/17 15:46 Chloride IVPB 133.333 mls/hr Q12H EUSEBIO Administration Lorazepam 2 mg 09/17/17 09:59 09/19/17 04:15 Ativan IVP 2 mg Q6H PRN Administration Agitation Metoprolol Tartrate 25 mg 09/13/17 13:00 09/19/17 14:00 Lopressor PO Not Given Q8H EUSEBIO Pantoprazole Sodium 40 mg 08/31/17 10:00 09/19/17 09:21 Protonix Inj IVP 40 mg DAILY EUSEBIO Administration Potassium Chloride 20 meq 09/14/17 14:30 09/19/17 09:22 Potassium Chloride Oral Soln PO Not Given DAILY EUSEBIO Scopolamine 1 patch 09/14/17 22:00 09/17/17 22:18 Transderm-Scop TD 1 patch Q3D EUSEBIO Administration Thiamine HCl 100 mg 08/30/17 22:15 09/19/17 09:20 Vitamin B1 Inj IV 100 mg DAILY EUSEBIO Administration - Patient Studies Lab Studies: Microbiology Studies 09/19/17 09:43 Gram Stain - Final Trachasp Lab Studies 09/19/17 09/19/17 09/19/17 Range/Units 10:10 06:22 06:22 WBC 14.7 H (4.8-10.8) K/uL RBC 2.83 L (3.80-5.20) Mil/uL Hgb 8.3 L (11.0-16.0) g/dL Hct 25.2 L (34.0-47.0) % MCV 88.9 (81.0-99.0) fL MCH 29.1 (27.0-31.0) pg MCHC 32.8 L (33.0-37.0) g/dL RDW 14.8 H (11.5-14.5) % Plt Count 366 (130-400) K/uL MPV 8.3 (7.2-11.7) fL Neut % (Auto) 82.8 H (50.0-75.0) % Lymph % (Auto) 8.7 L (20.0-40.0) % Swain % (Auto) 6.1 (0.0-10.0) % Eos % (Auto) 1.9 (0.0-4.0) % Baso % (Auto) 0.5 (0.0-2.0) % Neut # 12.2 H (1.8-7.0) K/uL Lymph # 1.3 (1.0-4.3) K/uL Swain # 0.9 H (0.0-0.8) K/uL Eos # 0.3 (0.0-0.7) K/uL Baso # 0.1 (0.0-0.2) K/uL Neutrophils % (Manual) 81 H (50-75) % Lymphocytes % (Manual) 7 L (20-40) % Monocytes % (Manual) 9 (0-10) % Eosinophils % (Manual) 2 (0-4) % Myelocytes % 1 H (0-0) % Platelet Estimate Normal (NORMAL) Polychromasia Slight Hypochromasia (manual) Moderate Puncture Site pCO2 (35-45) mm/Hg pO2 (80-100) mm/Hg HCO3 (21-28) mmol/L ABG pH (7.35-7.45) ABG Total CO2 (22-28) mmol/L ABG O2 Saturation (95-98) % ABG Base Excess (-2.0-3.0) mmol/L ABG Hemoglobin (11.7-17.4) g/dL ABG Carboxyhemoglobin (0.5-1.5) % POC ABG HHb (Measured) (0.0-5.0) % ABG Methemoglobin (0.0-3.0) % Stephen Test A-a O2 Difference mm/Hg Respiratory Index Hgb O2 Saturation (95.0-98.0) % Vent Mode Mechanical Rate FiO2 % Tidal Volume PEEP Sodium 131 L (132-148) mmol/L Potassium 2.9 L (3.6-5.2) mmol/L Chloride 94 L (98-107) mmol/L Carbon Dioxide 29 (22-30) mmol/L Anion Gap 11 (10-20) BUN 9 (7-17) mg/dL Creatinine 0.3 L (0.7-1.2) mg/dL Est GFR ( Amer) > 60 Est GFR (Non-Af Amer) > 60 Random Glucose 97 (65-105) mg/dL Calcium 9.8 (8.6-10.4) mg/dl Phosphorus 3.1 (2.5-4.5) mg/dL Magnesium 1.6 (1.6-2.3) mg/dL Total Bilirubin 0.8 (0.2-1.3) mg/dL AST 25 (14-36) U/L ALT 27 (9-52) U/L Alkaline Phosphatase 115 (38-126) U/L Total Protein 6.9 (6.3-8.3) g/dL Albumin 2.9 L (3.5-5.0) g/dL Globulin 4.0 H (2.2-3.9) gm/dL Albumin/Globulin Ratio 0.7 L (1.0-2.1) Urine HCG, Qual Negative (NEGATIVE) C. difficile Ag & Toxin (NEGATIVE) Blood Type Antibody Screen 09/19/17 09/18/17 09/17/17 Range/Units 05:27 08:39 16:30 WBC (4.8-10.8) K/uL RBC (3.80-5.20) Mil/uL Hgb (11.0-16.0) g/dL Hct (34.0-47.0) % MCV (81.0-99.0) fL MCH (27.0-31.0) pg MCHC (33.0-37.0) g/dL RDW (11.5-14.5) % Plt Count (130-400) K/uL MPV (7.2-11.7) fL Neut % (Auto) (50.0-75.0) % Lymph % (Auto) (20.0-40.0) % Swain % (Auto) (0.0-10.0) % Eos % (Auto) (0.0-4.0) % Baso % (Auto) (0.0-2.0) % Neut # (1.8-7.0) K/uL Lymph # (1.0-4.3) K/uL Swain # (0.0-0.8) K/uL Eos # (0.0-0.7) K/uL Baso # (0.0-0.2) K/uL Neutrophils % (Manual) (50-75) % Lymphocytes % (Manual) (20-40) % Monocytes % (Manual) (0-10) % Eosinophils % (Manual) (0-4) % Myelocytes % (0-0) % Platelet Estimate (NORMAL) Polychromasia Hypochromasia (manual) Puncture Site Lr pCO2 44 (35-45) mm/Hg pO2 143 H (80-100) mm/Hg HCO3 28.6 H (21-28) mmol/L ABG pH 7.44 (7.35-7.45) ABG Total CO2 31.3 H (22-28) mmol/L ABG O2 Saturation 99.8 H (95-98) % ABG Base Excess 4.8 H (-2.0-3.0) mmol/L ABG Hemoglobin 18.2 H (11.7-17.4) g/dL ABG Carboxyhemoglobin 1.8 H (0.5-1.5) % POC ABG HHb (Measured) 0.2 (0.0-5.0) % ABG Methemoglobin 1.1 (0.0-3.0) % Stephen Test Pos A-a O2 Difference 87.0 mm/Hg Respiratory Index 0.6 Hgb O2 Saturation 96.9 (95.0-98.0) % Vent Mode Prvc Mechanical Rate 10 FiO2 40.0 % Tidal Volume 400 PEEP 5 Sodium (132-148) mmol/L Potassium (3.6-5.2) mmol/L Chloride (98-107) mmol/L Carbon Dioxide (22-30) mmol/L Anion Gap (10-20) BUN (7-17) mg/dL Creatinine (0.7-1.2) mg/dL Est GFR ( Amer) Est GFR (Non-Af Amer) Random Glucose (65-105) mg/dL Calcium (8.6-10.4) mg/dl Phosphorus (2.5-4.5) mg/dL Magnesium (1.6-2.3) mg/dL Total Bilirubin (0.2-1.3) mg/dL AST (14-36) U/L ALT (9-52) U/L Alkaline Phosphatase (38-126) U/L Total Protein (6.3-8.3) g/dL Albumin (3.5-5.0) g/dL Globulin (2.2-3.9) gm/dL Albumin/Globulin Ratio (1.0-2.1) Urine HCG, Qual (NEGATIVE) C. difficile Ag & Toxin Negative (NEGATIVE) Blood Type O POSITIVE Antibody Screen Negative Laboratory Results - last 24 hr 09/17/17 09/18/17 09/19/17 16:30 08:39 05:27 WBC RBC Hgb Hct MCV MCH MCHC RDW Plt Count MPV Neut % (Auto) Lymph % (Auto) Swain % (Auto) Eos % (Auto) Baso % (Auto) Neut # Lymph # [place] # Eos # Baso # Neutrophils % (Manual) Lymphocytes % (Manual) Monocytes % (Manual) Eosinophils % (Manual) Myelocytes % Platelet Estimate Polychromasia Hypochromasia (manual) Puncture Site Lr pCO2 44 pO2 143 H HCO3 28.6 H ABG pH 7.44 ABG Total CO2 31.3 H ABG O2 Saturation 99.8 H ABG Base Excess 4.8 H ABG Hemoglobin 18.2 H ABG Carboxyhemoglobin 1.8 H POC ABG HHb (Measured) 0.2 ABG Methemoglobin 1.1 Stephen Test Pos A-a O2 Difference 87.0 Respiratory Index 0.6 Hgb O2 Saturation 96.9 Vent Mode Prvc Mechanical Rate 10 FiO2 40.0 Tidal Volume 400 PEEP 5 Sodium Potassium Chloride Carbon Dioxide Anion Gap BUN Creatinine Est GFR ( Amer) Est GFR (Non-Af Amer) Random Glucose Calcium Phosphorus Magnesium Total Bilirubin AST ALT Alkaline Phosphatase Total Protein Albumin Globulin Albumin/Globulin Ratio Urine HCG, Qual C. difficile Ag & Toxin Negative Blood Type O POSITIVE Antibody Screen Negative 09/19/17 09/19/17 09/19/17 06:22 06:22 10:10 WBC 14.7 H RBC 2.83 L Hgb 8.3 L Hct 25.2 L MCV 88.9 MCH 29.1 MCHC 32.8 L RDW 14.8 H Plt Count 366 MPV 8.3 Neut % (Auto) 82.8 H Lymph % (Auto) 8.7 L [place] % (Auto) 6.1 Eos % (Auto) 1.9 Baso % (Auto) 0.5 Neut # 12.2 H Lymph # 1.3 [place] # 0.9 H Eos # 0.3 Baso # 0.1 Neutrophils % (Manual) 81 H Lymphocytes % (Manual) 7 L Monocytes % (Manual) 9 Eosinophils % (Manual) 2 Myelocytes % 1 H Platelet Estimate Normal Polychromasia Slight Hypochromasia (manual) Moderate Puncture Site pCO2 pO2 HCO3 ABG pH ABG Total CO2 ABG O2 Saturation ABG Base Excess ABG Hemoglobin ABG Carboxyhemoglobin POC ABG HHb (Measured) ABG Methemoglobin Stephen Test A-a O2 Difference Respiratory Index Hgb O2 Saturation Vent Mode Mechanical Rate FiO2 Tidal Volume PEEP Sodium 131 L Potassium 2.9 L Chloride 94 L Carbon Dioxide 29 Anion Gap 11 BUN 9 Creatinine 0.3 L Est GFR ( Amer) > 60 Est GFR (Non-Af Amer) > 60 Random Glucose 97 Calcium 9.8 Phosphorus 3.1 Magnesium 1.6 Total Bilirubin 0.8 AST 25 ALT 27 Alkaline Phosphatase 115 Total Protein 6.9 Albumin 2.9 L Globulin 4.0 H Albumin/Globulin Ratio 0.7 L Urine HCG, Qual Negative C. difficile Ag & Toxin Blood Type Antibody Screen Critical Care Progress Note - Nutrition Nutrition: Nutrition Category Date Time Status NPO Diet [DIET] Diets 09/18/17 Breakfast Active Attending/Attestation - Attestation I have personally seen and examined this patient.: Yes I have fully participated in the care of the patient.: Yes I have reviewed all pertinent clinical information: Yes Notes (Text): 09/19/17 16:25 Patient seen and examined. 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
[2017-09-19] MEDS ORDERED: Propofol 10 mg/ml Inj (20 ML) ONE (11:22)
[2017-09-19] MEDS ORDERED: Rocuronium 10 mg/ml (5 ml) ONE (11:34)
--- NOTE | 2017-09-19 12:34 | CP.PCM.PN ---
Subjective - Date & Time of Evaluation Date of Evaluation: 09/19/17 Time of Evaluation: 12:20 - Subjective Subjective: Progress note dictated #[id number] Objective - Vital Signs/Intake and Output Vital Signs (last 24 hours): Temp Pulse Resp BP Pulse Ox 98.6 F 125 H 23 110/71 100 09/19/17 10:00 09/19/17 10:49 09/19/17 10:49 09/19/17 10:58 09/19/17 10:49 Intake and Output: 09/19/17 09/19/17 06:59 18:59 Intake Total 895 950 Output Total 200 160 Balance 695 790 - Medications Medications: Current Medications Acetaminophen (Tylenol 650mg/20.3ml Solution Ud) 650 mg NG Q6 PRN PRN Reason: Temperature Last Admin: 09/18/17 21:08 Dose: 650 mg Artificial Tears (Lacri-Lube) 1 gm OS Q6H PRN PRN Reason: Sedation Last Admin: 09/06/17 20:10 Dose: 1 gm Diltiazem HCl (Cardizem) 30 mg PO TID [facility] Last Admin: 09/19/17 09:15 Dose: Not Given Heparin Sodium (Porcine) (Heparin) 5,000 units SC Q12 [facility] Last Admin: 09/19/17 09:16 Dose: Not Given Levetiracetam 1,000 mg/ (Dextrose) 110 mls @ 440 mls/hr IVPB Q12H [facility] Last Admin: 09/19/17 05:23 Dose: 440 mls/hr Cefepime HCl (Maxipime Iv 2 Gm Premix) 2 gm in 100 mls @ 200 mls/hr IVPB Q8H [facility] Stop: 09/20/17 11:01 Last Admin: 09/19/17 03:00 Dose: 200 mls/hr Fluconazole (Diflucan Iv 200 Mg/100 Ml Ns) 100 mls @ 100 mls/hr IVPB DAILY [facility] Last Admin: 09/19/17 09:25 Dose: 100 mls/hr Diltiazem HCl 125 mg/ Dextrose 125 mls @ 5 mls/hr IV .Q24H [facility]; 5 MG/HR PRN Reason: Protocol Last Admin: 09/19/17 05:23 Dose: 5 mg/hr, 5 mls/hr Propofol (Diprivan) 1,000 mg in 100 mls @ 4.998 mls/hr IV .Q20H1M PRN; Protocol ; 12.4 MCG/KG/MIN PRN Reason: TITRATE PER MD ORDER Vancomycin HCl 1 gm/ Sodium (Chloride) 250 mls @ 133.333 mls/hr IVPB Q12H [facility] Last Admin: 09/19/17 00:08 Dose: 133.333 mls/hr Potassium Chloride (Potassium Chloride 20 Meq/100 Ml) 20 meq in 100 mls @ 50 mls/hr IVPB Q2H [facility] Stop: 09/19/17 13:59 Last Admin: 09/19/17 08:45 Dose: 50 mls/hr Lorazepam (Ativan) 2 mg IVP Q6H PRN PRN Reason: Agitation Last Admin: 09/19/17 04:15 Dose: 2 mg Metoprolol Tartrate (Lopressor) 25 mg PO Q8H [facility] Last Admin: 09/19/17 05:24 Dose: Not Given Pantoprazole Sodium (Protonix Inj) 40 mg IVP DAILY [facility] Last Admin: 09/19/17 09:21 Dose: 40 mg Potassium Chloride (Potassium Chloride Oral Soln) 20 meq PO DAILY [facility] Last Admin: 09/19/17 09:22 Dose: Not Given Scopolamine (Transderm-Scop) 1 patch TD Q3D [facility] Last Admin: 09/17/17 22:18 Dose: 1 patch Thiamine HCl (Vitamin B1 Inj) 100 mg IV DAILY [facility] Last Admin: 09/19/17 09:20 Dose: 100 mg - Labs Labs: 09/19/17 06:22 09/19/17 06:22 PT 16.9 SECONDS (9.7-12.2) H 09/18/17 14:01 INR 1.5 09/18/17 14:01 APTT 33 SECONDS (21-34) 09/18/17 14:01
--- NOTE | 2017-09-19 12:42 | PCM.SURG1 ---
Surgeon's Initial Post Op Note - Surgeon's Notes Surgeon: Dr. Dockery Marble Coper: Shelton Navarro PGY3, Aneesh PGY1 Type of Anesthesia: General Endo Pre-Operative Diagnosis: Respiratory failure Operative Findings: Chronic Tracheoesophageal fistula Post-Operative Diagnosis: Respiratory failure Operation Performed: Percutaneous converted to open tracheostomy Specimen/Specimens Removed: N/A Estimated Blood Loss: EBL {In ML}: 10 Blood Products Given: N/A Drains Used: No Drains Post-Op Condition: Fair Date of Surgery/Procedure: 09/19/17 Time of Surgery/Procedure: 11:15
--- NOTE | 2017-09-19 12:44 | CP.PCM.CON ---
History of Present Illness - History of Present Illness History of Present Illness: Cardiothoracic Surgey Consult Note for Dr. Plaza Reason for consult: Chronic tracheoesophageal fistula 36 F with PMH of anemia, ETOH abuse, respiratory failure presented s/p cardiac arrest on 08/30. At that time she was intubated and placed on vent support. She had been intubated since 08/30. 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 Patient does not respond to verbal or tactile stimuli. ROS unobtainable. PMH: anemia, EToH abuse, Respiratory failure Meds: As per EMR Allergy: NKDA PSH: x 3 FH: non-contributory Social: ETOH/tobacco use, no illlicit drug use Review of Systems - Review of Systems Systems not reviewed;Unavailable: Acuity of Condition, Intubated Past Patient History - Infectious Disease Hx of Infectious Diseases: None - Past Medical History & Family History Past Medical History?: Yes - Past Social History Smoking Status: Never Smoked - CARDIAC Hx Cardiac Disorders: No Other/Comment: As per family member : cardiac history of heart going "Fast" - PULMONARY Hx Pneumonia: Yes Other/Comment: smoker - NEUROLOGICAL Hx Neurological Disorder: No - HEENT Hx HEENT Problems: No - RENAL Hx Chronic Kidney Disease: No - ENDOCRINE/METABOLIC Hx Endocrine Disorders: No - HEMATOLOGICAL/ONCOLOGICAL Hx Anemia: Yes - INTEGUMENTARY Hx Dermatological Problems: Yes (HAS MULTIPLE HEALED OPEN LESION TO UPPER ARM, DARKENED SKIN DISCOLOR LLE) Hx Eczema: Yes Other/Comment: H/O OF HAVING HEAD LICE - MUSCULOSKELETAL/RHEUMATOLOGICAL Hx Musculoskeletal Disorders: No Hx Falls: Yes Hx Unsteady Gait: Yes - GASTROINTESTINAL Hx Gastrointestinal Disorders: No (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) HX Swallowing Problems: Yes (SORE THROAT 9-6-14) - GENITOURINARY/GYNECOLOGICAL Hx Genitourinary Disorders: Yes (6 ABORTIONS,3 CHILDREN ,H/O OF C SECTIONS X3) Other/Comment: MENORRHAGIA - PSYCHIATRIC Hx Depression: Yes Hx Substance Use: No - SURGICAL HISTORY Hx Section: Yes - ANESTHESIA Hx Anesthesia: Yes Hx Anesthesia Reactions: No Hx Malignant Hyperthermia: No Meds Allergies/Adverse Reactions: Allergies Allergy/AdvReac Type Severity Reaction Status Date / Time PORK Allergy NAUSEA Verified 01/05/17 11:15 tomato Allergy NAUSEA Verified 01/05/17 11:17 wheat Allergy NAUSEA Verified 01/05/17 11:16 - Medications Medications: Current Medications Acetaminophen (Tylenol 650mg/20.3ml Solution Ud) 650 mg NG Q6 PRN PRN Reason: Temperature Last Admin: 09/18/17 21:08 Dose: 650 mg Artificial Tears (Lacri-Lube) 1 gm OS Q6H PRN PRN Reason: Sedation Last Admin: 09/06/17 20:10 Dose: 1 gm Diltiazem HCl (Cardizem) 30 mg PO TID [facility] Last Admin: 09/19/17 09:15 Dose: Not Given Heparin Sodium (Porcine) (Heparin) 5,000 units SC Q12 [facility] Last Admin: 09/19/17 09:16 Dose: Not Given Levetiracetam 1,000 mg/ (Dextrose) 110 mls @ 440 mls/hr IVPB Q12H [facility] Last Admin: 09/19/17 05:23 Dose: 440 mls/hr Cefepime HCl (Maxipime Iv 2 Gm Premix) 2 gm in 100 mls @ 200 mls/hr IVPB Q8H [facility] Stop: 09/20/17 11:01 Last Admin: 09/19/17 03:00 Dose: 200 mls/hr Fluconazole (Diflucan Iv 200 Mg/100 Ml Ns) 100 mls @ 100 mls/hr IVPB DAILY [facility] Last Admin: 09/19/17 09:25 Dose: 100 mls/hr Diltiazem HCl 125 mg/ Dextrose 125 mls @ 5 mls/hr IV .Q24H [facility]; 5 MG/HR PRN Reason: Protocol Last Admin: 09/19/17 05:23 Dose: 5 mg/hr, 5 mls/hr Propofol (Diprivan) 1,000 mg in 100 mls @ 4.998 mls/hr IV .Q20H1M PRN; Protocol ; 12.4 MCG/KG/MIN PRN Reason: TITRATE PER MD ORDER Vancomycin HCl 1 gm/ Sodium (Chloride) 250 mls @ 133.333 mls/hr IVPB Q12H [facility] Last Admin: 09/19/17 00:08 Dose: 133.333 mls/hr Potassium Chloride (Potassium Chloride 20 Meq/100 Ml) 20 meq in 100 mls @ 50 mls/hr IVPB Q2H [facility] Stop: 09/19/17 13:59 Last Admin: 09/19/17 08:45 Dose: 50 mls/hr Lorazepam (Ativan) 2 mg IVP Q6H PRN PRN Reason: Agitation Last Admin: 09/19/17 04:15 Dose: 2 mg Metoprolol Tartrate (Lopressor) 25 mg PO Q8H [facility] Last Admin: 09/19/17 05:24 Dose: Not Given Pantoprazole Sodium (Protonix Inj) 40 mg IVP DAILY [facility] Last Admin: 09/19/17 09:21 Dose: 40 mg Potassium Chloride (Potassium Chloride Oral Soln) 20 meq PO DAILY [facility] Last Admin: 09/19/17 09:22 Dose: Not Given Scopolamine (Transderm-Scop) 1 patch TD Q3D [facility] Last Admin: 09/17/17 22:18 Dose: 1 patch Thiamine HCl (Vitamin B1 Inj) 100 mg IV DAILY [facility] Last Admin: 09/19/17 09:20 Dose: 100 mg Physical Exam - Constitutional Appears: No Acute Distress, Chronically Ill - Head Exam Head Exam: ATRAUMATIC, NORMOCEPHALIC - Eye Exam Eye Exam: Normal appearance - ENT Exam ENT Exam: Mucous Membranes Moist Additional comments: dry blood in mouth - Neck Exam Additional comments: s/p tracheostomy - Respiratory Exam Respiratory Exam: NORMAL BREATHING PATTERN - Cardiovascular Exam Cardiovascular Exam: Tachycardia - GI/Abdominal Exam GI & Abdominal Exam: Distended (mild), Soft. absent: Firm, Guarding, Rebound, Tenderness - Rectal Exam Additional comments: rectal tube in place and functioning - Exam Additional comments: cheema catheter in place - Extremities Exam Extremities exam: Positive for: normal capillary refill, pedal pulses present - Neurological Exam Neurological exam: Altered - Psychiatric Exam Psychiatric exam: Flat Affect - Skin Skin Exam: Dry, Intact, Normal Color, Warm Results - Vital Signs Recent Vital Signs: Last Vital Signs Temp 98.6 F 09/19/17 10:00 Pulse 125 H 09/19/17 10:49 Resp 23 09/19/17 10:49 BP 110/71 09/19/17 10:58 Pulse Ox 100 09/19/17 10:49 - Labs Result Diagrams: 09/20/17 06:26 09/20/17 06:26 Labs: Laboratory Results - last 24 hr 09/14/17 09/17/17 09/18/17 06:04 16:30 08:39 WBC RBC Hgb Hct MCV MCH MCHC RDW Plt Count MPV Neut % (Auto) Lymph % (Auto) [place] % (Auto) Eos % (Auto) Baso % (Auto) Neut # Lymph # [place] # Eos # Baso # Neutrophils % (Manual) Lymphocytes % (Manual) Monocytes % (Manual) Eosinophils % (Manual) Myelocytes % Platelet Estimate Polychromasia Hypochromasia (manual) PT INR APTT Puncture Site pCO2 pO2 HCO3 ABG pH ABG Total CO2 ABG O2 Saturation ABG Base Excess ABG Hemoglobin ABG Carboxyhemoglobin POC ABG HHb (Measured) ABG Methemoglobin Stephen Test A-a O2 Difference Respiratory Index Hgb O2 Saturation Vent Mode Mechanical Rate FiO2 Tidal Volume PEEP Sodium Potassium Chloride Carbon Dioxide Anion Gap BUN Creatinine Est GFR ( Amer) Est GFR (Non-Af Amer) Random Glucose Calcium Phosphorus Magnesium Total Bilirubin AST ALT Alkaline Phosphatase Total Protein Albumin Globulin Albumin/Globulin Ratio Phospholipids 173 Urine HCG, Qual C. difficile Ag & Toxin Negative Blood Type O POSITIVE Antibody Screen Negative 09/18/17 09/19/17 09/19/17 14:01 05:27 06:22 WBC 14.7 H RBC 2.83 L Hgb 8.3 L Hct 25.2 L MCV 88.9 MCH 29.1 MCHC 32.8 L RDW 14.8 H Plt Count 366 MPV 8.3 Neut % (Auto) 82.8 H Lymph % (Auto) 8.7 L [place] % (Auto) 6.1 Eos % (Auto) 1.9 Baso % (Auto) 0.5 Neut # 12.2 H Lymph # 1.3 [place] # 0.9 H Eos # 0.3 Baso # 0.1 Neutrophils % (Manual) 81 H Lymphocytes % (Manual) 7 L Monocytes % (Manual) 9 Eosinophils % (Manual) 2 Myelocytes % 1 H Platelet Estimate Normal Polychromasia Slight Hypochromasia (manual) Moderate PT 16.9 H INR 1.5 APTT 33 Puncture Site Lr pCO2 44 pO2 143 H HCO3 28.6 H ABG pH 7.44 ABG Total CO2 31.3 H ABG O2 Saturation 99.8 H ABG Base Excess 4.8 H ABG Hemoglobin 18.2 H ABG Carboxyhemoglobin 1.8 H POC ABG HHb (Measured) 0.2 ABG Methemoglobin 1.1 Stephen Test Pos A-a O2 Difference 87.0 Respiratory Index 0.6 Hgb O2 Saturation 96.9 Vent Mode Prvc Mechanical Rate 10 FiO2 40.0 Tidal Volume 400 PEEP 5 Sodium Potassium Chloride Carbon Dioxide Anion Gap BUN Creatinine Est GFR ( Amer) Est GFR (Non-Af Amer) Random Glucose Calcium Phosphorus Magnesium Total Bilirubin AST ALT Alkaline Phosphatase Total Protein Albumin Globulin Albumin/Globulin Ratio Phospholipids Urine HCG, Qual C. difficile Ag & Toxin Blood Type Antibody Screen 09/19/17 09/19/17 06:22 10:10 WBC RBC Hgb Hct MCV MCH MCHC RDW Plt Count MPV Neut % (Auto) Lymph % (Auto) [place] % (Auto) Eos % (Auto) Baso % (Auto) Neut # Lymph # [place] # Eos # Baso # Neutrophils % (Manual) Lymphocytes % (Manual) Monocytes % (Manual) Eosinophils % (Manual) Myelocytes % Platelet Estimate Polychromasia Hypochromasia (manual) PT INR APTT Puncture Site pCO2 pO2 HCO3 ABG pH ABG Total CO2 ABG O2 Saturation ABG Base Excess ABG Hemoglobin ABG Carboxyhemoglobin POC ABG HHb (Measured) ABG Methemoglobin Stephen Test A-a O2 Difference Respiratory Index Hgb O2 Saturation Vent Mode Mechanical Rate FiO2 Tidal Volume PEEP Sodium 131 L Potassium 2.9 L Chloride 94 L Carbon Dioxide 29 Anion Gap 11 BUN 9 Creatinine 0.3 L Est GFR ( Amer) > 60 Est GFR (Non-Af Amer) > 60 Random Glucose 97 Calcium 9.8 Phosphorus 3.1 Magnesium 1.6 Total Bilirubin 0.8 AST 25 ALT 27 Alkaline Phosphatase 115 Total Protein 6.9 Albumin 2.9 L Globulin 4.0 H Albumin/Globulin Ratio 0.7 L Phospholipids Urine HCG, Qual Negative C. difficile Ag & Toxin Blood Type Antibody Screen Assessment & Plan - Assessment and Plan (Free Text) Plan: 36 F with respiratory failure s/p cardiac arrest on 08/30, s/p tracehostomy POD# 0 with chronic tracheoesophageal fistula -NPO, no tube feeds at this time -Monitor clinically -Management as per ICU -Will discuss with Dr. Bola Melendrez PGY1
--- NOTE | 2017-09-19 13:32 | RAD ---
HISTORY: s/p trach with DAVID COMPARISON: Portable chest 09/19/2017. FINDINGS: Endotracheal tube is unchanged in position as well as right central venous line. Nasogastric tube appears distally uncoiled at the left upper quadrant abdomen. LUNGS: Mildly increased, limited patchy infiltrate seen at the right base and is minimally increased at the left base. New but limited patchy density seen at the right suprahilar space. PLEURA: No significant pleural effusion identified, no pneumothorax apparent. CARDIOVASCULAR: Stable cardiomediastinal silhouette. No definite pulmonary vascular derangement. OSSEOUS STRUCTURES: No significant abnormalities. VISUALIZED UPPER ABDOMEN: Normal. OTHER FINDINGS: None. IMPRESSION: Mild increase in bilateral airways disease. No pleural effusion or pneumothorax identified bilaterally. Continued clinical and radiographic monitor advised.
--- NOTE | 2017-09-19 16:28 | CP.PCM.PN ---
Subjective - Date & Time of Evaluation Date of Evaluation: 09/19/17 Time of Evaluation: 08:00 - Subjective Subjective: events noted rx in progress poor prognosis Objective - Vital Signs/Intake and Output Vital Signs (last 24 hours): Temp Pulse Resp BP Pulse Ox 97.4 F L 129 H 26 H 110/69 100 09/19/17 15:58 09/19/17 15:58 09/19/17 15:58 09/19/17 15:58 09/19/17 10:49 Intake and Output: 09/19/17 09/19/17 06:59 18:59 Intake Total 895 1275 Output Total 200 160 Balance 695 1115 - Medications Medications: Current Medications Acetaminophen (Tylenol 650mg/20.3ml Solution Ud) 650 mg NG Q6 PRN PRN Reason: Temperature Last Admin: 09/18/17 21:08 Dose: 650 mg Artificial Tears (Lacri-Lube) 1 gm OS Q6H PRN PRN Reason: Sedation Last Admin: 09/06/17 20:10 Dose: 1 gm Diltiazem HCl (Cardizem) 30 mg PO TID [facility] Last Admin: 09/19/17 15:47 Dose: Not Given Heparin Sodium (Porcine) (Heparin) 5,000 units SC Q12 [facility] Last Admin: 09/19/17 09:16 Dose: Not Given Levetiracetam 1,000 mg/ (Dextrose) 110 mls @ 440 mls/hr IVPB Q12H [facility] Last Admin: 09/19/17 05:23 Dose: 440 mls/hr Cefepime HCl (Maxipime Iv 2 Gm Premix) 2 gm in 100 mls @ 200 mls/hr IVPB Q8H [facility] Stop: 09/20/17 11:01 Last Admin: 09/19/17 13:53 Dose: 200 mls/hr Fluconazole (Diflucan Iv 200 Mg/100 Ml Ns) 100 mls @ 100 mls/hr IVPB DAILY [facility] Last Admin: 09/19/17 09:25 Dose: 100 mls/hr Diltiazem HCl 125 mg/ Dextrose 125 mls @ 5 mls/hr IV .Q24H [facility]; 5 MG/HR PRN Reason: Protocol Last Admin: 09/19/17 05:23 Dose: 5 mg/hr, 5 mls/hr Propofol (Diprivan) 1,000 mg in 100 mls @ 4.998 mls/hr IV .Q20H1M PRN; Protocol ; 12.4 MCG/KG/MIN PRN Reason: TITRATE PER MD ORDER Vancomycin HCl 1 gm/ Sodium (Chloride) 250 mls @ 133.333 mls/hr IVPB Q12H [facility] Last Admin: 09/19/17 15:46 Dose: 133.333 mls/hr Lorazepam (Ativan) 2 mg IVP Q6H PRN PRN Reason: Agitation Last Admin: 09/19/17 04:15 Dose: 2 mg Metoprolol Tartrate (Lopressor) 25 mg PO Q8H [facility] Last Admin: 09/19/17 14:00 Dose: Not Given Pantoprazole Sodium (Protonix Inj) 40 mg IVP DAILY [facility] Last Admin: 09/19/17 09:21 Dose: 40 mg Potassium Chloride (Potassium Chloride Oral Soln) 20 meq PO DAILY [facility] Last Admin: 09/19/17 09:22 Dose: Not Given Scopolamine (Transderm-Scop) 1 patch TD Q3D [facility] Last Admin: 09/17/17 22:18 Dose: 1 patch Thiamine HCl (Vitamin B1 Inj) 100 mg IV DAILY [facility] Last Admin: 09/19/17 09:20 Dose: 100 mg - Labs Labs: 09/19/17 06:22 09/19/17 06:22 PT 16.9 SECONDS (9.7-12.2) H 09/18/17 14:01 INR 1.5 09/18/17 14:01 APTT 33 SECONDS (21-34) 09/18/17 14:01 - Constitutional Appears: Confused, Chronically Ill - Head Exam Head Exam: NORMOCEPHALIC - Eye Exam Eye Exam: PERRL - ENT Exam ENT Exam: Mucous Membranes Dry - Neck Exam Neck Exam: absent: Lymphadenopathy - Respiratory Exam Respiratory Exam: Decreased Breath Sounds, Rhonchi - Cardiovascular Exam Cardiovascular Exam: REGULAR RHYTHM Assessment and Plan (1) Anemia Status: Acute (2) Anoxic encephalopathy Status: Acute (3) Cardiac arrest Status: Acute (4) Hypokalemia Status: Acute (5) Alcohol abuse Status: Acute (6) Chest pain Status: Acute
[2017-09-19] MEDS: Propofol 10 mg/ml 1,000 MG/100 ML VIAL IV PRN (18:45)
[2017-09-19 20:06] LABS: RBC URINE 25 /hpf (0-3); URINE BACTERIA OCC (<OCC); URINE BILIRUBIN NEGATIVE (NEGATIVE); URINE BLOOD 2+ (NEGATIVE); URINE COLOR Yellow (YELLOW); URINE GLUCOSE (UA) NORMAL (Normal); URINE KETONE NEGATIVE (NEGATIVE); URINE LEUKOCYTE ESTERASE 1+ Leu/uL (Negative); URINE PROTEIN 1+ mg/dL (NEGATIVE); URINE UROBILINOGEN NORMAL mg/dL (0.2-1.0); WBC URINE 9 /hpf (0-5)
[2017-09-19] MEDS: Acetaminophen 650mg/20.3ml solution UD NG PRN (20:16)
[2017-09-19 20:23] LABS: BILIRUBIN,DIRECT 1.1 mg/dL (0.0-0.4); BILIRUBIN,TOTAL 1.7 mg/dL (0.2-1.3)
--- NOTE | 2017-09-19 20:36 | CP.PCM.CON ---
History of Present Illness - History of Present Illness History of Present Illness: CC: GI service consult for PEG Patient admitted last month in cardiac arrest. Underwent Tracheostomy today. We are asked to perform PEG. Chart reviewed, discussed with RN. Patient has had a complicated hospital course. Patient can not provide history. Physician progress notes state surgeon would do PEG and Tracheostomy both today, however only tracheostomy was performed. 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 Review of Systems - Review of Systems Systems not reviewed;Unavailable: Intubated Past Patient History - Infectious Disease Hx of Infectious Diseases: None - Past Medical History & Family History Past Medical History?: Yes - Past Social History Smoking Status: Never Smoked - CARDIAC Hx Cardiac Disorders: No Other/Comment: As per family member : cardiac history of heart going "Fast" - PULMONARY Hx Pneumonia: Yes Other/Comment: smoker - NEUROLOGICAL Hx Neurological Disorder: No - HEENT Hx HEENT Problems: No - RENAL Hx Chronic Kidney Disease: No - ENDOCRINE/METABOLIC Hx Endocrine Disorders: No - HEMATOLOGICAL/ONCOLOGICAL Hx Anemia: Yes - INTEGUMENTARY Hx Dermatological Problems: Yes (HAS MULTIPLE HEALED OPEN LESION TO UPPER ARM, DARKENED SKIN DISCOLOR LLE) Hx Eczema: Yes Other/Comment: H/O OF HAVING HEAD LICE - MUSCULOSKELETAL/RHEUMATOLOGICAL Hx Musculoskeletal Disorders: No Hx Falls: Yes Hx Unsteady Gait: Yes - GASTROINTESTINAL Hx Gastrointestinal Disorders: No (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) HX Swallowing Problems: Yes (SORE THROAT 9--14) - GENITOURINARY/GYNECOLOGICAL Hx Genitourinary Disorders: Yes (6 ABORTIONS,3 CHILDREN ,H/O OF C SECTIONS X3) Other/Comment: MENORRHAGIA - PSYCHIATRIC Hx Depression: Yes Hx Substance Use: No - SURGICAL HISTORY Hx Section: Yes - ANESTHESIA Hx Anesthesia: Yes Hx Anesthesia Reactions: No Hx Malignant Hyperthermia: No Meds Allergies/Adverse Reactions: Allergies Allergy/AdvReac Type Severity Reaction Status Date / Time PORK Allergy NAUSEA Verified 01/05/17 11:15 tomato Allergy NAUSEA Verified 01/05/17 11:17 wheat Allergy NAUSEA Verified 01/05/17 11:16 - Medications Medications: Current Medications Acetaminophen (Tylenol 650mg/20.3ml Solution Ud) 650 mg NG Q6 PRN PRN Reason: Temperature Last Admin: 09/19/17 20:16 Dose: 650 mg Artificial Tears (Lacri-Lube) 1 gm OS Q6H PRN PRN Reason: Sedation Last Admin: 09/06/17 20:10 Dose: 1 gm Diltiazem HCl (Cardizem) 30 mg PO TID [facility] Last Admin: 09/19/17 18:55 Dose: Not Given Heparin Sodium (Porcine) (Heparin) 5,000 units SC Q12 [facility] Last Admin: 09/19/17 09:16 Dose: Not Given Levetiracetam 1,000 mg/ (Dextrose) 110 mls @ 440 mls/hr IVPB Q12H [facility] Last Admin: 09/19/17 18:59 Dose: 440 mls/hr Cefepime HCl (Maxipime Iv 2 Gm Premix) 2 gm in 100 mls @ 200 mls/hr IVPB Q8H [facility] Stop: 09/20/17 11:01 Last Admin: 09/19/17 19:01 Dose: 200 mls/hr Fluconazole (Diflucan Iv 200 Mg/100 Ml Ns) 100 mls @ 100 mls/hr IVPB DAILY [facility] Last Admin: 09/19/17 09:25 Dose: 100 mls/hr Diltiazem HCl 125 mg/ Dextrose 125 mls @ 5 mls/hr IV .Q24H EUSEBIO; 5 MG/HR PRN Reason: Protocol Last Admin: 09/19/17 18:58 Dose: 15 mg/hr, 15 mls/hr Propofol (Diprivan) 1,000 mg in 100 mls @ 4.998 mls/hr IV .Q20H1M PRN; Protocol ; 12.4 MCG/KG/MIN PRN Reason: TITRATE PER MD ORDER Last Admin: 09/19/17 18:45 Dose: 10 mcg/kg/min, 4.031 mls/hr Vancomycin HCl 1 gm/ Sodium (Chloride) 250 mls @ 133.333 mls/hr IVPB Q12H [facility] Last Admin: 09/19/17 15:46 Dose: 133.333 mls/hr Lorazepam (Ativan) 2 mg IVP Q6H PRN PRN Reason: Agitation Last Admin: 09/19/17 16:50 Dose: 2 mg Metoprolol Tartrate (Lopressor) 25 mg PO Q8H [facility] Last Admin: 09/19/17 20:20 Dose: 25 mg Pantoprazole Sodium (Protonix Inj) 40 mg IVP DAILY [facility] Last Admin: 09/19/17 09:21 Dose: 40 mg Potassium Chloride (Potassium Chloride Oral Soln) 20 meq PO DAILY [facility] Last Admin: 09/19/17 09:22 Dose: Not Given Scopolamine (Transderm-Scop) 1 patch TD Q3D [facility] Last Admin: 09/17/17 22:18 Dose: 1 patch Thiamine HCl (Vitamin B1 Inj) 100 mg IV DAILY [facility] Last Admin: 09/19/17 09:20 Dose: 100 mg Physical Exam - Constitutional Appears: In Acute Distress, Chronically Ill - ENT Exam Additional comments: Tracheostomy - Respiratory Exam Respiratory Exam: Rhonchi - Cardiovascular Exam Cardiovascular Exam: Tachycardia - GI/Abdominal Exam GI & Abdominal Exam: Soft. absent: Tenderness Results - Vital Signs Recent Vital Signs: Last Vital Signs Temp 101.4 F H 09/19/17 20:16 Pulse 138 H 09/19/17 19:46 Resp 24 09/19/17 19:46 BP 112/66 09/19/17 20:20 Pulse Ox 99 09/19/17 19:46 - Labs Result Diagrams: 09/19/17 06:22 09/19/17 06:22 Labs: Laboratory Results - last 24 hr 09/18/17 09/19/17 09/19/17 08:39 05:27 06:22 WBC 14.7 H RBC 2.83 L Hgb 8.3 L Hct 25.2 L MCV 88.9 MCH 29.1 MCHC 32.8 L RDW 14.8 H Plt Count 366 MPV 8.3 Neut % (Auto) 82.8 H Lymph % (Auto) 8.7 L [place] % (Auto) 6.1 Eos % (Auto) 1.9 Baso % (Auto) 0.5 Neut # 12.2 H Lymph # 1.3 [place] # 0.9 H Eos # 0.3 Baso # 0.1 Neutrophils % (Manual) 81 H Lymphocytes % (Manual) 7 L Monocytes % (Manual) 9 Eosinophils % (Manual) 2 Myelocytes % 1 H Platelet Estimate Normal Polychromasia Slight Hypochromasia (manual) Moderate Puncture Site Lr pCO2 44 pO2 143 H HCO3 28.6 H ABG pH 7.44 ABG Total CO2 31.3 H ABG O2 Saturation 99.8 H ABG Base Excess 4.8 H ABG Hemoglobin 18.2 H ABG Carboxyhemoglobin 1.8 H POC ABG HHb (Measured) 0.2 ABG Methemoglobin 1.1 Stephen Test Pos A-a O2 Difference 87.0 Respiratory Index 0.6 Hgb O2 Saturation 96.9 Vent Mode Prvc Mechanical Rate 10 FiO2 40.0 Tidal Volume 400 PEEP 5 Sodium Potassium Chloride Carbon Dioxide Anion Gap BUN Creatinine Est GFR ( Amer) Est GFR (Non-Af Amer) Random Glucose Calcium Phosphorus Magnesium Total Bilirubin Direct Bilirubin AST ALT Alkaline Phosphatase Total Protein Albumin Globulin Albumin/Globulin Ratio Urine Color Urine Clarity Urine pH Ur Specific [place] Urine Protein Urine Glucose (UA) Urine Ketones Urine Blood Urine Nitrate Urine Bilirubin Urine Urobilinogen Ur Leukocyte Esterase Urine WBC (Auto) Urine RBC (Auto) Ur Squamous Epith Cells Urine Bacteria Urine HCG, Qual Blood Type O POSITIVE Antibody Screen Negative Clerical Work Check Pre-Trans Blood Type Pre-Trans Vis Hemolysis Post-Trans Blood Type Post-Tx Visible Hemolys Post-Trans EMMANUEL Poly 09/19/17 09/19/17 09/19/17 06:22 10:10 19:54 WBC RBC Hgb Hct MCV MCH MCHC RDW Plt Count MPV Neut % (Auto) Lymph % (Auto) [place] % (Auto) Eos % (Auto) Baso % (Auto) Neut # Lymph # [place] # Eos # Baso # Neutrophils % (Manual) Lymphocytes % (Manual) Monocytes % (Manual) Eosinophils % (Manual) Myelocytes % Platelet Estimate Polychromasia Hypochromasia (manual) Puncture Site pCO2 pO2 HCO3 ABG pH ABG Total CO2 ABG O2 Saturation ABG Base Excess ABG Hemoglobin ABG Carboxyhemoglobin POC ABG HHb (Measured) ABG Methemoglobin Stephen Test A-a O2 Difference Respiratory Index Hgb O2 Saturation Vent Mode Mechanical Rate FiO2 Tidal Volume PEEP Sodium 131 L Potassium 2.9 L Chloride 94 L Carbon Dioxide 29 Anion Gap 11 BUN 9 Creatinine 0.3 L Est GFR ( Amer) > 60 Est GFR (Non-Af Amer) > 60 Random Glucose 97 Calcium 9.8 Phosphorus 3.1 Magnesium 1.6 Total Bilirubin 0.8 Direct Bilirubin AST 25 ALT 27 Alkaline Phosphatase 115 Total Protein 6.9 Albumin 2.9 L Globulin 4.0 H Albumin/Globulin Ratio 0.7 L Urine Color Yellow Urine Clarity Hazy Urine pH 5.0 Ur Specific [place] 1.021 Urine Protein 1+ H Urine Glucose (UA) Normal Urine Ketones Negative Urine Blood 2+ H Urine Nitrate Negative Urine Bilirubin Negative Urine Urobilinogen Normal Ur Leukocyte Esterase 1+ H Urine WBC (Auto) 9 H Urine RBC (Auto) 25 H Ur Squamous Epith Cells 1 Urine Bacteria Occ H Urine HCG, Qual Negative Blood Type Antibody Screen Clerical Work Check Pre-Trans Blood Type Pre-Trans Vis Hemolysis Post-Trans Blood Type Post-Tx Visible Hemolys Post-Trans EMMANUEL Poly 09/19/17 09/19/17 20:04 20:17 WBC RBC Hgb Hct MCV MCH MCHC RDW Plt Count MPV Neut % (Auto) Lymph % (Auto) [place] % (Auto) Eos % (Auto) Baso % (Auto) Neut # Lymph # [place] # Eos # Baso # Neutrophils % (Manual) Lymphocytes % (Manual) Monocytes % (Manual) Eosinophils % (Manual) Myelocytes % Platelet Estimate Polychromasia Hypochromasia (manual) Puncture Site pCO2 pO2 HCO3 ABG pH ABG Total CO2 ABG O2 Saturation ABG Base Excess ABG Hemoglobin ABG Carboxyhemoglobin POC ABG HHb (Measured) ABG Methemoglobin Stephen Test A-a O2 Difference Respiratory Index Hgb O2 Saturation Vent Mode Mechanical Rate FiO2 Tidal Volume PEEP Sodium Potassium Chloride Carbon Dioxide Anion Gap BUN Creatinine Est GFR ( Amer) Est GFR (Non-Af Amer) Random Glucose Calcium Phosphorus Magnesium Total Bilirubin 1.7 H Direct Bilirubin 1.1 H AST ALT Alkaline Phosphatase Total Protein Albumin Globulin Albumin/Globulin Ratio Urine Color Urine Clarity Urine pH Ur Specific [place] Urine Protein Urine Glucose (UA) Urine Ketones Urine Blood Urine Nitrate Urine Bilirubin Urine Urobilinogen Ur Leukocyte Esterase Urine WBC (Auto) Urine RBC (Auto) Ur Squamous Epith Cells Urine Bacteria Urine HCG, Qual Blood Type Antibody Screen Clerical Work Check No discrepancy Pre-Trans Blood Type O POSITIVE Pre-Trans Vis Hemolysis No hemolysis Post-Trans Blood Type O POSITIVE Post-Tx Visible Hemolys No hemolysis Post-Trans EMMANUEL Poly Negative Assessment & Plan (1) Anoxic encephalopathy Assessment and Plan: Continue feeds via orogastric tube PEG not likely to be technically feasible in patient with T-E fistula. Would likely be better off with surgically placed GTube Status: Acute
[2017-09-20] MEDS: Cefepime IV 2 gm in Dextrose 2 GM/100 ML BAG IVPB SCH ×2 (02:55→12:08)
[2017-09-20] MEDS: Acetaminophen 650mg/20.3ml solution UD NG PRN ×2 (05:08→20:02)
[2017-09-20] MEDS: Propofol 10 mg/ml 1,000 MG/100 ML VIAL IV PRN ×3 (05:10→20:11)
[2017-09-20 05:37] LABS: ABG MECHANICAL RATE 14; ARTERIAL BLOOD GAS MODE PRVC; ARTERIAL BLOOD HGB O2 SAT 94.3 % (95.0-98.0); ATERIAL BLOOD GAS PEEP 5; CARBOXYHEMOGLOBIN 2.4 % (0.5-1.5); DRAW SITE LB; HHB 2.1 % (0.0-5.0); METHEMOGLOBIN 1.2 % (0.0-3.0)
[2017-09-20 06:38] LABS: BASO # 0.1 K/uL (0.0-0.2); BASO % 0.8 % (0.0-2.0); EOS # 0.3 K/uL (0.0-0.7); EOS % 1.6 % (0.0-4.0); HEMATOCRIT 32.6 % (34.0-47.0); LYMPH # 1.5 K/uL (1.0-4.3); LYMPH % 9.3 % (20.0-40.0); MEAN CELL VOLUME 88.7 fL (81.0-99.0); MEAN CORPUSCULAR HEMOGLOBIN 29.8 pg (27.0-31.0); MEAN CORPUSCULAR HGB CONC 33.6 g/dL (33.0-37.0); MEAN PLATELET VOLUME 8.9 fL (7.2-11.7); MONO % 6.2 % (0.0-10.0); NRBC % 0.3 % (0.0-2.0); PLATELET COUNT 381 K/uL (130-400); RED CELL DISTRIBUTION WIDTH 15.1 % (11.5-14.5); WHITE BLOOD COUNT 16.4 K/uL (4.8-10.8)
[2017-09-20 06:42] LABS: CHLORIDE 93 mmol/L (98-107); POTASSIUM 3.2 mmol/L (3.6-5.2); SODIUM 129 mmol/L (132-148)
[2017-09-20 06:44] LABS: AST/SGOT 24 U/L (14-36); BILIRUBIN,TOTAL 1.4 mg/dL (0.2-1.3); CARBON DIOXIDE 28 mmol/L (22-30); GFR AFRICAN-AMERICAN > 60
[2017-09-20 06:45] LABS: ALB/GLOB RATIO 0.7 (1.0-2.1); ALKALINE PHOSPHATASE 122 U/L (38-126); ALT/SGPT 16 U/L (9-52); BLOOD UREA NITROGEN 5 mg/dL (7-17); CALCIUM 9.1 mg/dl (8.6-10.4); GLUCOSE,RANDOM 88 mg/dL (65-105); PHOSPHOROUS 3.1 mg/dL (2.5-4.5); TOTAL PROTEIN 7.3 g/dL (6.3-8.3)
[2017-09-20 06:46] LABS: MAGNESIUM 1.4 mg/dL (1.6-2.3)
[2017-09-20] MEDS ORDERED: Magnesium Sulfate 1 gm in D5W 1 GM/100 ML BAG IVPB SCH ×3 (07:00→18:00)
--- NOTE | 2017-09-20 07:52 | CP.CCUPN ---
<ShilpaLiset L. - Last Filed: 09/20/17 16:35> CCU Subjective - Physician Review Subjective (Free Text): Patient seen and examined at bedside. Patient currently intubated. ROS unobtainable due to patient's current clinical status. CCU Objective - Vital Signs / Intake & Output Vital Signs (Last 4 hours): Vital Signs Temp Pulse Resp BP Pulse Ox 09/20/17 07:00 93 H 17 100 09/20/17 06:58 92 H 22 109/79 100 09/20/17 06:43 93 H 15 102/57 L 100 09/20/17 06:28 97 H 16 100 09/20/17 06:16 103 H 14 101/55 L 100 09/20/17 06:08 99.8 F H 09/20/17 05:30 101/80 09/20/17 05:14 129/65 09/20/17 05:08 100.8 F H 09/20/17 05:06 113/75 09/20/17 05:00 116 H 25 H 100 09/20/17 04:58 113/75 09/20/17 04:43 123 H 24 113/73 100 09/20/17 04:28 117 H 25 H 117/68 100 09/20/17 04:16 109/70 09/20/17 04:04 107/71 09/20/17 04:00 99.9 F H Intake and Output (Last 8hrs): Intake & Output 09/19/17 09/20/17 09/20/17 22:59 06:59 14:59 Intake Total 1463.2 935.4 27.1 Output Total 750 315 270 Balance 713.2 620.4 -242.9 Intake: IV 125 225 Intake, IV Amount 333.2 650.4 27.1 Left Forearm 28.2 80.4 12.1 Right Internal Jugular 450 Right Medial Port 200 Internal Jugular Right Proximal Port 105 120 15 Internal Jugular Blood Product 945 Red Blood Cells Cpd As1 280 Lr Unit [id number] Red Blood Cells Cpd As1 175 Lr Unit [id number] Other 60 60 Output: Urine 250 315 70 Urethral (Andino) 250 315 70 Stool 200 Urine/Stool Mix 500 - Physical Exam Head: Positive for: Atraumatic, Normocephalic Pupils: Positive for: Sluggish Extroacular Muscles: Negative for: EOMI Mouth: Positive for: Moist Mucous Membranes Respiratory/Chest: Positive for: Good Air Exchange, Other (trach in place ) Cardiovascular: Positive for: Normal S1, S2, Tachycardic Abdomen: Positive for: Normal Bowel Sounds. Negative for: Distention Upper Extremity: Negative for: Edema Lower Extremity: Negative for: Edema Neurological: Negative for: GCS=15, Speech Normal Skin: Positive for: Normal Color Psychiatric: Negative for: Alert, Oriented x 3 - Medications Active Medications: Active Medications Generic Name Dose Route Start Last Admin Trade Name Freq PRN Reason Stop Dose Admin Acetaminophen 650 mg 09/15/17 03:51 09/20/17 05:08 Tylenol 650mg/20.3ml Solution Ud NG 650 mg Q6 PRN Administration Temperature Artificial Tears 1 gm 08/31/17 12:00 09/06/17 20:10 Lacri-Lube OS 1 gm Q6H PRN Administration Sedation Diltiazem HCl 30 mg 09/16/17 10:00 09/19/17 18:55 Cardizem PO Not Given TID EUSEBIO Heparin Sodium (Porcine) 5,000 units 09/14/17 12:30 09/19/17 22:24 Heparin SC Not Given Q12 EUSEBIO Levetiracetam 1,000 mg/ 110 mls @ 440 mls/hr 09/10/17 06:00 09/20/17 05:06 Dextrose IVPB 440 mls/hr Q12H EUSEBIO Administration Cefepime HCl 2 gm in 100 mls @ 200 mls/hr 09/15/17 11:00 09/20/17 02:55 Maxipime Iv 2 Gm Premix IVPB 09/20/17 11:01 200 mls/hr Q8H EUSEBIO Administration Fluconazole 100 mls @ 100 mls/hr 09/17/17 10:30 09/19/17 09:25 Diflucan Iv 200 Mg/100 Ml Ns IVPB 100 mls/hr DAILY EUSEBIO Administration Diltiazem HCl 125 mg/ Dextrose 125 mls @ 5 mls/hr 09/17/17 14:15 09/20/17 02: 54 IV 15 mg/hr .Q24H EUSEBIO 15 mls/hr Protocol Administration 5 MG/HR Propofol 1,000 mg in 100 mls @ 4.998 mls/hr 09/18/17 13:13 09/20/17 05:10 Diprivan IV 30 mcg/kg/min .Q20H1M PRN 12.092 mls/hr TITRATE PER MD ORDER Administration Protocol 12.4 MCG/KG/MIN Vancomycin HCl 1 gm/ Sodium 250 mls @ 133.333 mls/hr 09/19/17 01:00 09/20/17 00:58 Chloride IVPB 133.333 mls/hr Q12H EUSEBIO Administration Potassium Chloride 20 meq in 100 mls @ 50 mls/hr 09/20/17 06:55 Potassium Chloride 20 Meq/100 Ml IVPB 09/20/17 08:54 ONCE ONE Potassium Chloride 20 meq in 100 mls @ 50 mls/hr 09/20/17 09:00 Potassium Chloride 20 Meq/100 Ml IVPB 09/20/17 10:59 ONCE ONE Magnesium Sulfate/Dextrose 1 gm in 100 mls @ 200 mls/hr 09/20/17 07:30 Magnesium Sulfate 1 Gm/100 Ml D5w IVPB 09/20/17 08:29 Q30M EUSEBIO Lorazepam 2 mg 09/17/17 09:59 09/19/17 16:50 Ativan IVP 2 mg Q6H PRN Administration Agitation Metoprolol Tartrate 25 mg 09/13/17 13:00 09/20/17 05:06 Lopressor PO 25 mg Q8H EUSEBIO Administration Pantoprazole Sodium 40 mg 08/31/17 10:00 09/19/17 09:21 Protonix Inj IVP 40 mg DAILY EUSEBIO Administration Potassium Chloride 20 meq 09/14/17 14:30 09/19/17 09:22 Potassium Chloride Oral Soln PO Not Given DAILY EUSEBIO Scopolamine 1 patch 09/14/17 22:00 09/17/17 22:18 Transderm-Scop TD 1 patch Q3D EUSEBIO Administration Thiamine HCl 100 mg 08/30/17 22:15 09/19/17 09:20 Vitamin B1 Inj IV 100 mg DAILY EUSEBIO Administration - Patient Studies Lab Studies: Microbiology Studies 09/19/17 20:25 - Final Blood Transfusion Bag 09/19/17 09:43 Gram Stain - Final Trachasp Lab Studies 09/20/17 09/20/17 09/20/17 Range/Units 06:26 06:26 05:11 WBC 16.4 H (4.8-10.8) K/uL RBC 3.68 L (3.80-5.20) Mil/uL Hgb 10.9 L D (11.0-16.0) g/dL Hct 32.6 L (34.0-47.0) % MCV 88.7 (81.0-99.0) fL MCH 29.8 (27.0-31.0) pg MCHC 33.6 (33.0-37.0) g/dL RDW 15.1 H (11.5-14.5) % Plt Count 381 (130-400) K/uL MPV 8.9 (7.2-11.7) fL Neut % (Auto) 82.1 H (50.0-75.0) % Lymph % (Auto) 9.3 L (20.0-40.0) % [place] % (Auto) 6.2 (0.0-10.0) % Eos % (Auto) 1.6 (0.0-4.0) % Baso % (Auto) 0.8 (0.0-2.0) % Neut # 13.5 H (1.8-7.0) K/uL Lymph # 1.5 (1.0-4.3) K/uL [place] # 1.0 H (0.0-0.8) K/uL Eos # 0.3 (0.0-0.7) K/uL Baso # 0.1 (0.0-0.2) K/uL Neutrophils % (Manual) (50-75) % Lymphocytes % (Manual) (20-40) % Monocytes % (Manual) (0-10) % Eosinophils % (Manual) (0-4) % Myelocytes % (0-0) % Platelet Estimate (NORMAL) Polychromasia Hypochromasia (manual) Puncture Site Lb pCO2 38 (35-45) mm/Hg pO2 77 L (80-100) mm/Hg HCO3 29.1 H (21-28) mmol/L ABG pH 7.49 H (7.35-7.45) ABG Total CO2 30.2 H (22-28) mmol/L ABG O2 Saturation 97.8 (95-98) % ABG Base Excess 5.4 H (-2.0-3.0) mmol/L ABG Hemoglobin 11.9 (11.7-17.4) g/dL ABG Carboxyhemoglobin 2.4 H (0.5-1.5) % POC ABG HHb (Measured) 2.1 (0.0-5.0) % ABG Methemoglobin 1.2 (0.0-3.0) % Stephen Test Na A-a O2 Difference 152.0 mm/Hg Respiratory Index 1.8 Hgb O2 Saturation 94.3 L (95.0-98.0) % Vent Mode Prvc Mechanical Rate 14 FiO2 40.0 % Tidal Volume 400 PEEP 5 Sodium 129 L (132-148) mmol/L Potassium 3.2 L (3.6-5.2) mmol/L Chloride 93 L (98-107) mmol/L Carbon Dioxide 28 (22-30) mmol/L Anion Gap 11 (10-20) BUN 5 L (7-17) mg/dL Creatinine 0.2 L (0.7-1.2) mg/dL Est GFR ( Amer) > 60 Est GFR (Non-Af Amer) > 60 Random Glucose 88 (65-105) mg/dL Calcium 9.1 (8.6-10.4) mg/dl Phosphorus 3.1 (2.5-4.5) mg/dL Magnesium 1.4 L (1.6-2.3) mg/dL Total Bilirubin 1.4 H (0.2-1.3) mg/dL Direct Bilirubin (0.0-0.4) mg/dL AST 24 (14-36) U/L ALT 16 (9-52) U/L Alkaline Phosphatase 122 (38-126) U/L Total Protein 7.3 (6.3-8.3) g/dL Albumin 3.1 L (3.5-5.0) g/dL Globulin 4.3 H (2.2-3.9) gm/dL Albumin/Globulin Ratio 0.7 L (1.0-2.1) Urine Color (YELLOW) Urine Clarity (Clear) Urine pH (5.0-8.0) Ur Specific Lamar (1.003-1.030) Urine Protein (NEGATIVE) mg/dL Urine Glucose (UA) (Normal) mg/dL Urine Ketones (NEGATIVE) mg/dL Urine Blood (NEGATIVE) Urine Nitrate (NEGATIVE) Urine Bilirubin (NEGATIVE) Urine Urobilinogen (0.2-1.0) mg/dL Ur Leukocyte Esterase (Negative) Tyrell/uL Urine WBC (Auto) (0-5) /hpf Urine RBC (Auto) (0-3) /hpf Ur Squamous Epith Cells (0-5) /hpf Urine Bacteria (<OCC) Urine HCG, Qual (NEGATIVE) Blood Type Antibody Screen Tx React Basic Work-up (COMPATIBLE) Clerical Work Check Pre-Trans Blood Type Pre-Trans Vis Hemolysis Pre-Tx Ab Screen (Gel) Post-Trans Blood Type Post-Tx Visible Hemolys Post-Tx Ab Screen (Gel) Post-Trans EMMANUEL Poly (NEGATIVE) Pathologist Comment BBK 09/20/17 09/19/17 09/19/17 Range/Units 01:21 20:17 20:04 WBC (4.8-10.8) K/uL RBC (3.80-5.20) Mil/uL Hgb (11.0-16.0) g/dL Hct (34.0-47.0) % MCV (81.0-99.0) fL MCH (27.0-31.0) pg MCHC (33.0-37.0) g/dL RDW (11.5-14.5) % Plt Count (130-400) K/uL MPV (7.2-11.7) fL Neut % (Auto) (50.0-75.0) % Lymph % (Auto) (20.0-40.0) % [place] % (Auto) (0.0-10.0) % Eos % (Auto) (0.0-4.0) % Baso % (Auto) (0.0-2.0) % Neut # (1.8-7.0) K/uL Lymph # (1.0-4.3) K/uL [place] # (0.0-0.8) K/uL Eos # (0.0-0.7) K/uL Baso # (0.0-0.2) K/uL Neutrophils % (Manual) (50-75) % Lymphocytes % (Manual) (20-40) % Monocytes % (Manual) (0-10) % Eosinophils % (Manual) (0-4) % Myelocytes % (0-0) % Platelet Estimate (NORMAL) Polychromasia Hypochromasia (manual) Puncture Site pCO2 (35-45) mm/Hg pO2 (80-100) mm/Hg HCO3 (21-28) mmol/L ABG pH (7.35-7.45) ABG Total CO2 (22-28) mmol/L ABG O2 Saturation (95-98) % ABG Base Excess (-2.0-3.0) mmol/L ABG Hemoglobin (11.7-17.4) g/dL ABG Carboxyhemoglobin (0.5-1.5) % POC ABG HHb (Measured) (0.0-5.0) % ABG Methemoglobin (0.0-3.0) % Stephen Test A-a O2 Difference mm/Hg Respiratory Index Hgb O2 Saturation (95.0-98.0) % Vent Mode Mechanical Rate FiO2 % Tidal Volume PEEP Sodium (132-148) mmol/L Potassium (3.6-5.2) mmol/L Chloride (98-107) mmol/L Carbon Dioxide (22-30) mmol/L Anion Gap (10-20) BUN (7-17) mg/dL Creatinine (0.7-1.2) mg/dL Est GFR ( Amer) Est GFR (Non-Af Amer) Random Glucose (65-105) mg/dL Calcium (8.6-10.4) mg/dl Phosphorus (2.5-4.5) mg/dL Magnesium (1.6-2.3) mg/dL Total Bilirubin 1.2 1.7 H (0.2-1.3) mg/dL Direct Bilirubin 1.1 H (0.0-0.4) mg/dL AST (14-36) U/L ALT (9-52) U/L Alkaline Phosphatase (38-126) U/L Total Protein (6.3-8.3) g/dL Albumin (3.5-5.0) g/dL Globulin (2.2-3.9) gm/dL Albumin/Globulin Ratio (1.0-2.1) Urine Color (YELLOW) Urine Clarity (Clear) Urine pH (5.0-8.0) Ur Specific Lamar (1.003-1.030) Urine Protein (NEGATIVE) mg/dL Urine Glucose (UA) (Normal) mg/dL Urine Ketones (NEGATIVE) mg/dL Urine Blood (NEGATIVE) Urine Nitrate (NEGATIVE) Urine Bilirubin (NEGATIVE) Urine Urobilinogen (0.2-1.0) mg/dL Ur Leukocyte Esterase (Negative) Tyrell/uL Urine WBC (Auto) (0-5) /hpf Urine RBC (Auto) (0-3) /hpf Ur Squamous Epith Cells (0-5) /hpf Urine Bacteria (<OCC) Urine HCG, Qual (NEGATIVE) Blood Type Antibody Screen Tx React Basic Work-up Compatible (COMPATIBLE) Clerical Work Check No discrepancy Pre-Trans Blood Type O POSITIVE Pre-Trans Vis Hemolysis No hemolysis Pre-Tx Ab Screen (Gel) Negative Post-Trans Blood Type O POSITIVE Post-Tx Visible Hemolys No hemolysis Post-Tx Ab Screen (Gel) Negative Post-Trans EMMANUEL Poly Negative (NEGATIVE) Pathologist Comment BBK 09/19/17 09/19/17 09/19/17 Range/Units 19:54 10:10 06:22 WBC (4.8-10.8) K/uL RBC (3.80-5.20) Mil/uL Hgb (11.0-16.0) g/dL Hct (34.0-47.0) % MCV (81.0-99.0) fL MCH (27.0-31.0) pg MCHC (33.0-37.0) g/dL RDW (11.5-14.5) % Plt Count (130-400) K/uL MPV (7.2-11.7) fL Neut % (Auto) (50.0-75.0) % Lymph % (Auto) (20.0-40.0) % [place] % (Auto) (0.0-10.0) % Eos % (Auto) (0.0-4.0) % Baso % (Auto) (0.0-2.0) % Neut # (1.8-7.0) K/uL Lymph # (1.0-4.3) K/uL [place] # (0.0-0.8) K/uL Eos # (0.0-0.7) K/uL Baso # (0.0-0.2) K/uL Neutrophils % (Manual) 81 H (50-75) % Lymphocytes % (Manual) 7 L (20-40) % Monocytes % (Manual) 9 (0-10) % Eosinophils % (Manual) 2 (0-4) % Myelocytes % 1 H (0-0) % Platelet Estimate Normal (NORMAL) Polychromasia Slight Hypochromasia (manual) Moderate Puncture Site pCO2 (35-45) mm/Hg pO2 (80-100) mm/Hg HCO3 (21-28) mmol/L ABG pH (7.35-7.45) ABG Total CO2 (22-28) mmol/L ABG O2 Saturation (95-98) % ABG Base Excess (-2.0-3.0) mmol/L ABG Hemoglobin (11.7-17.4) g/dL ABG Carboxyhemoglobin (0.5-1.5) % POC ABG HHb (Measured) (0.0-5.0) % ABG Methemoglobin (0.0-3.0) % Stephen Test A-a O2 Difference mm/Hg Respiratory Index Hgb O2 Saturation (95.0-98.0) % Vent Mode Mechanical Rate FiO2 % Tidal Volume PEEP Sodium (132-148) mmol/L Potassium (3.6-5.2) mmol/L Chloride (98-107) mmol/L Carbon Dioxide (22-30) mmol/L Anion Gap (10-20) BUN (7-17) mg/dL Creatinine (0.7-1.2) mg/dL Est GFR ( Amer) Est GFR (Non-Af Amer) Random Glucose (65-105) mg/dL Calcium (8.6-10.4) mg/dl Phosphorus (2.5-4.5) mg/dL Magnesium (1.6-2.3) mg/dL Total Bilirubin (0.2-1.3) mg/dL Direct Bilirubin (0.0-0.4) mg/dL AST (14-36) U/L ALT (9-52) U/L Alkaline Phosphatase (38-126) U/L Total Protein (6.3-8.3) g/dL Albumin (3.5-5.0) g/dL Globulin (2.2-3.9) gm/dL Albumin/Globulin Ratio (1.0-2.1) Urine Color Yellow (YELLOW) Urine Clarity Hazy (Clear) Urine pH 5.0 (5.0-8.0) Ur Specific Lamar 1.021 (1.003-1.030) Urine Protein 1+ H (NEGATIVE) mg/dL Urine Glucose (UA) Normal (Normal) mg/dL Urine Ketones Negative (NEGATIVE) mg/dL Urine Blood 2+ H (NEGATIVE) Urine Nitrate Negative (NEGATIVE) Urine Bilirubin Negative (NEGATIVE) Urine Urobilinogen Normal (0.2-1.0) mg/dL Ur Leukocyte Esterase 1+ H (Negative) Tyrell/uL Urine WBC (Auto) 9 H (0-5) /hpf Urine RBC (Auto) 25 H (0-3) /hpf Ur Squamous Epith Cells 1 (0-5) /hpf Urine Bacteria Occ H (<OCC) Urine HCG, Qual Negative (NEGATIVE) Blood Type Antibody Screen Tx React Basic Work-up (COMPATIBLE) Clerical Work Check Pre-Trans Blood Type Pre-Trans Vis Hemolysis Pre-Tx Ab Screen (Gel) Post-Trans Blood Type Post-Tx Visible Hemolys Post-Tx Ab Screen (Gel) Post-Trans EMMANUEL Poly (NEGATIVE) Pathologist Comment BBK 09/18/17 Range/Units 08:39 WBC (4.8-10.8) K/uL RBC (3.80-5.20) Mil/uL Hgb (11.0-16.0) g/dL Hct (34.0-47.0) % MCV (81.0-99.0) fL MCH (27.0-31.0) pg MCHC (33.0-37.0) g/dL RDW (11.5-14.5) % Plt Count (130-400) K/uL MPV (7.2-11.7) fL Neut % (Auto) (50.0-75.0) % Lymph % (Auto) (20.0-40.0) % [place] % (Auto) (0.0-10.0) % Eos % (Auto) (0.0-4.0) % Baso % (Auto) (0.0-2.0) % Neut # (1.8-7.0) K/uL Lymph # (1.0-4.3) K/uL [place] # (0.0-0.8) K/uL Eos # (0.0-0.7) K/uL Baso # (0.0-0.2) K/uL Neutrophils % (Manual) (50-75) % Lymphocytes % (Manual) (20-40) % Monocytes % (Manual) (0-10) % Eosinophils % (Manual) (0-4) % Myelocytes % (0-0) % Platelet Estimate (NORMAL) Polychromasia Hypochromasia (manual) Puncture Site pCO2 (35-45) mm/Hg pO2 (80-100) mm/Hg HCO3 (21-28) mmol/L ABG pH (7.35-7.45) ABG Total CO2 (22-28) mmol/L ABG O2 Saturation (95-98) % ABG Base Excess (-2.0-3.0) mmol/L ABG Hemoglobin (11.7-17.4) g/dL ABG Carboxyhemoglobin (0.5-1.5) % POC ABG HHb (Measured) (0.0-5.0) % ABG Methemoglobin (0.0-3.0) % Stephen Test A-a O2 Difference mm/Hg Respiratory Index Hgb O2 Saturation (95.0-98.0) % Vent Mode Mechanical Rate FiO2 % Tidal Volume PEEP Sodium (132-148) mmol/L Potassium (3.6-5.2) mmol/L Chloride (98-107) mmol/L Carbon Dioxide (22-30) mmol/L Anion Gap (10-20) BUN (7-17) mg/dL Creatinine (0.7-1.2) mg/dL Est GFR ( Amer) Est GFR (Non-Af Amer) Random Glucose (65-105) mg/dL Calcium (8.6-10.4) mg/dl Phosphorus (2.5-4.5) mg/dL Magnesium (1.6-2.3) mg/dL Total Bilirubin (0.2-1.3) mg/dL Direct Bilirubin (0.0-0.4) mg/dL AST (14-36) U/L ALT (9-52) U/L Alkaline Phosphatase (38-126) U/L Total Protein (6.3-8.3) g/dL Albumin (3.5-5.0) g/dL Globulin (2.2-3.9) gm/dL Albumin/Globulin Ratio (1.0-2.1) Urine Color (YELLOW) Urine Clarity (Clear) Urine pH (5.0-8.0) Ur Specific Lamar (1.003-1.030) Urine Protein (NEGATIVE) mg/dL Urine Glucose (UA) (Normal) mg/dL Urine Ketones (NEGATIVE) mg/dL Urine Blood (NEGATIVE) Urine Nitrate (NEGATIVE) Urine Bilirubin (NEGATIVE) Urine Urobilinogen (0.2-1.0) mg/dL Ur Leukocyte Esterase (Negative) Tyrell/uL Urine WBC (Auto) (0-5) /hpf Urine RBC (Auto) (0-3) /hpf Ur Squamous Epith Cells (0-5) /hpf Urine Bacteria (<OCC) Urine HCG, Qual (NEGATIVE) Blood Type O POSITIVE Antibody Screen Negative Tx React Basic Work-up (COMPATIBLE) Clerical Work Check Pre-Trans Blood Type Pre-Trans Vis Hemolysis Pre-Tx Ab Screen (Gel) Post-Trans Blood Type Post-Tx Visible Hemolys Post-Tx Ab Screen (Gel) Post-Trans EMMANUEL Poly (NEGATIVE) Pathologist Comment BBK Laboratory Results - last 24 hr 09/18/17 09/19/17 09/19/17 08:39 06:22 10:10 WBC RBC Hgb Hct MCV MCH MCHC RDW Plt Count MPV Neut % (Auto) Lymph % (Auto) [place] % (Auto) Eos % (Auto) Baso % (Auto) Neut # Lymph # [place] # Eos # Baso # Neutrophils % (Manual) 81 H Lymphocytes % (Manual) 7 L Monocytes % (Manual) 9 Eosinophils % (Manual) 2 Myelocytes % 1 H Platelet Estimate Normal Polychromasia Slight Hypochromasia (manual) Moderate Puncture Site pCO2 pO2 HCO3 ABG pH ABG Total CO2 ABG O2 Saturation ABG Base Excess ABG Hemoglobin ABG Carboxyhemoglobin POC ABG HHb (Measured) ABG Methemoglobin Stephen Test A-a O2 Difference Respiratory Index Hgb O2 Saturation Vent Mode Mechanical Rate FiO2 Tidal Volume PEEP Sodium Potassium Chloride Carbon Dioxide Anion Gap BUN Creatinine Est GFR ( Amer) Est GFR (Non-Af Amer) Random Glucose Calcium Phosphorus Magnesium Total Bilirubin Direct Bilirubin AST ALT Alkaline Phosphatase Total Protein Albumin Globulin Albumin/Globulin Ratio Urine Color Urine Clarity Urine pH Ur Specific Lamar Urine Protein Urine Glucose (UA) Urine Ketones Urine Blood Urine Nitrate Urine Bilirubin Urine Urobilinogen Ur Leukocyte Esterase Urine WBC (Auto) Urine RBC (Auto) Ur Squamous Epith Cells Urine Bacteria Urine HCG, Qual Negative Blood Type O POSITIVE Antibody Screen Negative Tx React Basic Work-up Clerical Work Check Pre-Trans Blood Type Pre-Trans Vis Hemolysis Pre-Tx Ab Screen (Gel) Post-Trans Blood Type Post-Tx Visible Hemolys Post-Tx Ab Screen (Gel) Post-Trans EMMANUEL Poly Pathologist Comment [facility] 09/19/17 09/19/17 09/19/17 19:54 20:04 20:17 WBC RBC Hgb Hct MCV MCH MCHC RDW Plt Count MPV Neut % (Auto) Lymph % (Auto) [place] % (Auto) Eos % (Auto) Baso % (Auto) Neut # Lymph # [place] # Eos # Baso # Neutrophils % (Manual) Lymphocytes % (Manual) Monocytes % (Manual) Eosinophils % (Manual) Myelocytes % Platelet Estimate Polychromasia Hypochromasia (manual) Puncture Site pCO2 pO2 HCO3 ABG pH ABG Total CO2 ABG O2 Saturation ABG Base Excess ABG Hemoglobin ABG Carboxyhemoglobin POC ABG HHb (Measured) ABG Methemoglobin Stephen Test A-a O2 Difference Respiratory Index Hgb O2 Saturation Vent Mode Mechanical Rate FiO2 Tidal Volume PEEP Sodium Potassium Chloride Carbon Dioxide Anion Gap BUN Creatinine Est GFR ( Amer) Est GFR (Non-Af Amer) Random Glucose Calcium Phosphorus Magnesium Total Bilirubin 1.7 H Direct Bilirubin 1.1 H AST ALT Alkaline Phosphatase Total Protein Albumin Globulin Albumin/Globulin Ratio Urine Color Yellow Urine Clarity Hazy Urine pH 5.0 Ur Specific Lamar 1.021 Urine Protein 1+ H Urine Glucose (UA) Normal Urine Ketones Negative Urine Blood 2+ H Urine Nitrate Negative Urine Bilirubin Negative Urine Urobilinogen Normal Ur Leukocyte Esterase 1+ H Urine WBC (Auto) 9 H Urine RBC (Auto) 25 H Ur Squamous Epith Cells 1 Urine Bacteria Occ H Urine HCG, Qual Blood Type Antibody Screen Tx React Basic Work-up Compatible Clerical Work Check No discrepancy Pre-Trans Blood Type O POSITIVE Pre-Trans Vis Hemolysis No hemolysis Pre-Tx Ab Screen (Gel) Negative Post-Trans Blood Type O POSITIVE Post-Tx Visible Hemolys No hemolysis Post-Tx Ab Screen (Gel) Negative Post-Trans EMMANUEL Poly Negative Pathologist Comment [facility] 09/20/17 09/20/17 09/20/17 01:21 05:11 06:26 WBC 16.4 H RBC 3.68 L Hgb 10.9 L D Hct 32.6 L MCV 88.7 MCH 29.8 MCHC 33.6 RDW 15.1 H Plt Count 381 MPV 8.9 Neut % (Auto) 82.1 H Lymph % (Auto) 9.3 L [place] % (Auto) 6.2 Eos % (Auto) 1.6 Baso % (Auto) 0.8 Neut # 13.5 H Lymph # 1.5 [place] # 1.0 H Eos # 0.3 Baso # 0.1 Neutrophils % (Manual) Lymphocytes % (Manual) Monocytes % (Manual) Eosinophils % (Manual) Myelocytes % Platelet Estimate Polychromasia Hypochromasia (manual) Puncture Site Lb pCO2 38 pO2 77 L HCO3 29.1 H ABG pH 7.49 H ABG Total CO2 30.2 H ABG O2 Saturation 97.8 ABG Base Excess 5.4 H ABG Hemoglobin 11.9 ABG Carboxyhemoglobin 2.4 H POC ABG HHb (Measured) 2.1 ABG Methemoglobin 1.2 Stephen Test Na A-a O2 Difference 152.0 Respiratory Index 1.8 Hgb O2 Saturation 94.3 L Vent Mode Prvc Mechanical Rate 14 FiO2 40.0 Tidal Volume 400 PEEP 5 Sodium Potassium Chloride Carbon Dioxide Anion Gap BUN Creatinine Est GFR ( Amer) Est GFR (Non-Af Amer) Random Glucose Calcium Phosphorus Magnesium Total Bilirubin 1.2 Direct Bilirubin AST ALT Alkaline Phosphatase Total Protein Albumin Globulin Albumin/Globulin Ratio Urine Color Urine Clarity Urine pH Ur Specific Lamar Urine Protein Urine Glucose (UA) Urine Ketones Urine Blood Urine Nitrate Urine Bilirubin Urine Urobilinogen Ur Leukocyte Esterase Urine WBC (Auto) Urine RBC (Auto) Ur Squamous Epith Cells Urine Bacteria Urine HCG, Qual Blood Type Antibody Screen Tx React Basic Work-up Clerical Work Check Pre-Trans Blood Type Pre-Trans Vis Hemolysis Pre-Tx Ab Screen (Gel) Post-Trans Blood Type Post-Tx Visible Hemolys Post-Tx Ab Screen (Gel) Post-Trans EMMANUEL Poly Pathologist Comment [facility] 09/20/17 06:26 WBC RBC Hgb Hct MCV MCH MCHC RDW Plt Count MPV Neut % (Auto) Lymph % (Auto) [place] % (Auto) Eos % (Auto) Baso % (Auto) Neut # Lymph # [place] # Eos # Baso # Neutrophils % (Manual) Lymphocytes % (Manual) Monocytes % (Manual) Eosinophils % (Manual) Myelocytes % Platelet Estimate Polychromasia Hypochromasia (manual) Puncture Site pCO2 pO2 HCO3 ABG pH ABG Total CO2 ABG O2 Saturation ABG Base Excess ABG Hemoglobin ABG Carboxyhemoglobin POC ABG HHb (Measured) ABG Methemoglobin Stephen Test A-a O2 Difference Respiratory Index Hgb O2 Saturation Vent Mode Mechanical Rate FiO2 Tidal Volume PEEP Sodium 129 L Potassium 3.2 L Chloride 93 L Carbon Dioxide 28 Anion Gap 11 BUN 5 L Creatinine 0.2 L Est GFR ( Amer) > 60 Est GFR (Non-Af Amer) > 60 Random Glucose 88 Calcium 9.1 Phosphorus 3.1 Magnesium 1.4 L Total Bilirubin 1.4 H Direct Bilirubin AST 24 ALT 16 Alkaline Phosphatase 122 Total Protein 7.3 Albumin 3.1 L Globulin 4.3 H Albumin/Globulin Ratio 0.7 L Urine Color Urine Clarity Urine pH Ur Specific Lamar Urine Protein Urine Glucose (UA) Urine Ketones Urine Blood Urine Nitrate Urine Bilirubin Urine Urobilinogen Ur Leukocyte Esterase Urine WBC (Auto) Urine RBC (Auto) Ur Squamous Epith Cells Urine Bacteria Urine HCG, Qual Blood Type Antibody Screen Tx React Basic Work-up Clerical Work Check Pre-Trans Blood Type Pre-Trans Vis Hemolysis Pre-Tx Ab Screen (Gel) Post-Trans Blood Type Post-Tx Visible Hemolys Post-Tx Ab Screen (Gel) Post-Trans EMMANUEL Poly Pathologist Comment BBK Fingerstick Blood Sugar Results: 123 Review of Systems - Review of Systems Systems not reviewed;Unavailable: Acuity of Condition Critical Care Progress Note - Nutrition Nutrition: Nutrition Category Date Time Status NPO Diet [DIET] Diets 09/18/17 Breakfast Active Assessment/Plan - Assessment and Plan (Free Text) Assessment: 36 year old female with past medical history of anemia and alcohol abuse, who was found unconscious by . EMS was called and patient was found to be in Asystole, ACLS protocol was initiated and 2 rounds of epinephrine and then ROSC. Patient was unconscious in the ED. Subsequently, patient was admitted to the ICU and hypothermia protocol was initiated. Plan: Neuro: Intubated, Acute seizures Neurologist, Dr. Pugh---> help appreciated * Management as per recommendation Medication/Management: * Keppra 500mg IV Q12H * Propofol (Titratable) Imaging: * EEG (08/31/17): globally abnormal EEG because of persistent spike and wave activities consistent with status epilepticus. Please correlate the findings with neurological and radiological studies * Cerebral blood flow (09/03/17): does not conform to nuclear medicine diagnosis of brain . There is a faint cerebral flow, the study is considered technically suboptimal for reasons related to technique and poor visualization of carotid arteries. * CT head w/o contrast (09/03/17): No mass effect or edema. No atrophy or chronic microvascular. * EEG (09/06): status epilepticus * head CT (09/12/17): asymmetric low attenuation in the L basal ganglia could represent anoxic injury. Mild global parenchymal volume loss, advanced for the patient's age. Cardio: Cardiopulmonary Arrest, tachycardia Management: * Intubated * Hypothermia protocol was initiated * Lopressor 25mg po q8h * Cardizem drip started (09/17) Pulm: Respiratory distress secondary to cardiac arrest, POD#1 s/p trach * Intubated * sputum culture: staph * D Dimer: [id number] * CTA: no evidence of PE, bibasilar consolidation. Upper lobe interstitial infiltrates. 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 Plaza consulted, help appreciated GI: Diarrhea * C. Dif negative (09/03) * repeat C. dif (09/17) negative * Dr. Hernandez consulted for PEG placement, because of TE fistula probably better to surgically placed G tube * Dr. Skinner agrees that PEG cannot be done due to TE fistula, surgical PEG to be considered Renal: Electrolyte imbalance Nephrology, Dr. Ramos---> Help appreciated * Management as per recommendation * electrolytes repleted as needed Heme: anemia * H/H: on 09/12 dropped to 7.3/22.5 from 8.1/24.5- patient was transfused 2 u PRBCs * H/H: 9.8/30.4 * 09/18- INR: 1.8, 2u FFP transfused and Vit K 10mg sc given * 09/19: INR: 1.5, 2 units FFP HgB dropped to 8.3 from 9.8, transfuse 1 u PRBCs ID: * urine: yeast * sputum: staph aureus * Cefepime 2gm q8h (started on 09/15) * Vancomycin 1gm q12h * 09/12: repeat cultures: urine- yeast species, blood negative * f/u repeat sputum culture on 09/19, prelim: gram positive cocci * f/u repeat blood culture 09/19 Psych: Alcohol abuse disorder * Thiamine 100mg IV daily Prophylaxis measures: * R IJ in place * DVT: SCDs, Heparin 5,000 units SC Q12H * GI: Protonix 40mg IV daily * tube feeds: jevity <YashfSilas M - Last Filed: 09/21/17 10:52> CCU Objective - Vital Signs / Intake & Output Vital Signs (Last 4 hours): Vital Signs Temp Pulse Resp BP Pulse Ox 09/21/17 08:59 107 H 17 90/60 L 100 09/21/17 08:17 100.4 F H 09/21/17 08:00 100.4 F H 09/21/17 07:17 100.5 F H 09/21/17 07:00 122 H 15 100 09/21/17 06:59 124 H 19 101/69 100 Intake and Output (Last 8hrs): Intake & Output 09/20/17 09/21/17 09/21/17 22:59 06:59 14:59 Intake Total 911.6 619 139 Output Total 630 460 665 Balance 281.6 159 -526 Intake: IV 228 25 100 Intake, IV Amount 503.6 474 39 Right Distal Port 200 Internal Jugular Right Forearm 88.6 64 24 Right Proximal Internal 105 60 10 Jugular - Distal port Right Proximal Port 110 50 5 Internal Jugular left hand 300 Other 180 120 Output: Gastric Amount 250 Stomach 250 Urine 630 460 165 Urethral (Andino) 630 460 165 Stool 250 - Medications Active Medications: Active Medications Generic Name Dose Route Start Last Admin Trade Name Freq PRN Reason Stop Dose Admin Acetaminophen 650 mg 09/15/17 03:51 09/21/17 07:17 Tylenol 650mg/20.3ml Solution Ud NG 650 mg Q6 PRN Administration Temperature Artificial Tears 1 gm 08/31/17 12:00 09/06/17 20:10 Lacri-Lube OS 1 gm Q6H PRN Administration Sedation Diltiazem HCl 30 mg 09/21/17 10:00 Cardizem PO QID EUSEBIO Heparin Sodium (Porcine) 5,000 units 09/14/17 12:30 09/20/17 21:18 Heparin SC 5,000 units Q12 [facility]SE[facility] Administration Levetiracetam 1,000 mg/ 110 mls @ 440 mls/hr 09/10/17 06:00 09/21/17 06:31 Dextrose IVPB 440 mls/hr Q12H [facility]SE[facility] Administration Fluconazole 100 mls @ 100 mls/hr 09/17/17 10:30 09/21/17 10:18 Diflucan Iv 200 Mg/100 Ml Ns IVPB 100 mls/hr DAILY [facility] Administration Diltiazem HCl 125 mg/ Dextrose 125 mls @ 5 mls/hr 09/17/17 14:15 09/21/17 00: 32 IV 5 mg/hr .Q24H EUSEBIO 5 mls/hr Protocol Titration 5 MG/HR Propofol 1,000 mg in 100 mls @ 4.998 mls/hr 09/18/17 13:13 09/21/17 07:19 Diprivan IV 20 mcg/kg/min .Q20H1M PRN 8.061 mls/hr TITRATE PER MD ORDER Administration Protocol 12.4 MCG/KG/MIN Vancomycin/Sodium Chloride 1 gm in 200 mls @ 133.333 mls/hr 09/21/17 01:00 00:29 Vancomycin 1 Gm/Ns 200 Ml IVPB 09/24/17 01:01 133.333 mls/hr Q12H EUSEBIO Administration Phenylephrine HCl 30 mg/ 253 mls @ 10.12 mls/hr 09/20/17 16:07 09/21/17 05:40 Dextrose IV 0 mcg/min .Q24H PRN 0 mls/hr TITRATE PER MD ORDER Titration Protocol 20 MCG/MIN Sodium Chloride 1,000 mls @ 1,000 mls/hr 09/21/17 09:52 Sodium Chloride 0.9% IV 09/21/17 10:51 .Q1H ONE Sodium Chloride 1,000 mls @ 75 mls/hr 09/21/17 10:00 Sodium Chloride 0.9% IV .[id number] [facility] Lorazepam 2 mg 09/17/17 09:59 09/20/17 22:37 Ativan IVP 2 mg Q6H PRN Administration Agitation Metoprolol Tartrate 25 mg 09/13/17 13:00 09/21/17 05:40 Lopressor PO 25 mg Q8H [facility] Administration Pantoprazole Sodium 40 mg 09/21/17 10:00 Protonix Inj IVP DAILY [facility] Potassium Chloride 20 meq 09/14/17 14:30 09/20/17 10:32 Potassium Chloride Oral Soln PO 20 meq DAILY [facility] Administration Scopolamine 1 patch 09/14/17 22:00 09/20/17 21:18 Transderm-Scop TD 1 patch Q3D [facility] Administration Thiamine HCl 100 mg 08/30/17 22:15 09/20/17 10:32 Vitamin B1 Inj IV 100 mg DAILY EUSEBIO Administration - Patient Studies Lab Studies: Microbiology Studies 09/19/17 09:43 Gram Stain - Final Trachasp Sputum Culture - Final Methicillin Resistant S Aureus 09/19/17 20:25 - Final Blood Transfusion Bag - Preliminary NO GROWTH AFTER 24 HOURS Lab Studies 09/21/17 09/21/17 09/21/17 Range/Units 06:17 06:17 05:15 WBC 18.4 H (4.8-10.8) K/uL RBC 3.98 (3.80-5.20) Mil/uL Hgb 11.6 (11.0-16.0) g/dL Hct 35.8 (34.0-47.0) % MCV 89.9 (81.0-99.0) fL MCH 29.1 (27.0-31.0) pg MCHC 32.4 L (33.0-37.0) g/dL RDW 15.2 H (11.5-14.5) % Plt Count 371 (130-400) K/uL MPV 9.5 (7.2-11.7) fL Neut % (Auto) 80.6 H (50.0-75.0) % Lymph % (Auto) 10.6 L (20.0-40.0) % [place] % (Auto) 5.8 (0.0-10.0) % Eos % (Auto) 2.3 (0.0-4.0) % Baso % (Auto) 0.7 (0.0-2.0) % Neut # 14.8 H (1.8-7.0) K/uL Lymph # 1.9 (1.0-4.3) K/uL [place] # 1.1 H (0.0-0.8) K/uL Eos # 0.4 (0.0-0.7) K/uL Baso # 0.1 (0.0-0.2) K/uL Puncture Site Lr pCO2 47 H (35-45) mm/Hg pO2 394 H (80-100) mm/Hg HCO3 23.3 (21-28) mmol/L ABG pH 7.32 L (7.35-7.45) ABG Total CO2 25.6 (22-28) mmol/L ABG O2 Saturation 99.7 H (95-98) % ABG Base Excess -2.1 L (-2.0-3.0) mmol/L ABG Hemoglobin 10.6 L (11.7-17.4) g/dL ABG Carboxyhemoglobin 1.2 (0.5-1.5) % POC ABG HHb (Measured) 0.3 (0.0-5.0) % ABG Methemoglobin 1.5 (0.0-3.0) % Stephen Test Pos A-a O2 Difference 260.0 mm/Hg Respiratory Index 0.7 Hgb O2 Saturation 97.0 (95.0-98.0) % Vent Mode Prvc Mechanical Rate 15 FiO2 100.0 % Tidal Volume 400 PEEP 5 Sodium 133 (132-148) mmol/L Potassium 4.3 (3.6-5.2) mmol/L Chloride 98 (98-107) mmol/L Carbon Dioxide 28 (22-30) mmol/L Anion Gap 11 (10-20) BUN 3 L (7-17) mg/dL Creatinine 0.3 L (0.7-1.2) mg/dL Est GFR ( Amer) > 60 Est GFR (Non-Af Amer) > 60 Random Glucose 107 H (65-105) mg/dL Calcium 10.3 (8.6-10.4) mg/dl Phosphorus 4.4 (2.5-4.5) mg/dL Magnesium 1.8 (1.6-2.3) mg/dL Total Bilirubin 1.2 (0.2-1.3) mg/dL AST 18 (14-36) U/L ALT 27 (9-52) U/L Alkaline Phosphatase 134 H (38-126) U/L Total Protein 7.8 (6.3-8.3) g/dL Albumin 3.3 L (3.5-5.0) g/dL Globulin 4.5 H (2.2-3.9) gm/dL Albumin/Globulin Ratio 0.7 L (1.0-2.1) 11/09/17 Range/Units 16:10 WBC (4.8-10.8) K/uL RBC (3.80-5.20) Mil/uL Hgb (11.0-16.0) g/dL Hct (34.0-47.0) % MCV (81.0-99.0) fL MCH (27.0-31.0) pg MCHC (33.0-37.0) g/dL RDW (11.5-14.5) % Plt Count (130-400) K/uL MPV (7.2-11.7) fL Neut % (Auto) (50.0-75.0) % Lymph % (Auto) (20.0-40.0) % [place] % (Auto) (0.0-10.0) % Eos % (Auto) (0.0-4.0) % Baso % (Auto) (0.0-2.0) % Neut # (1.8-7.0) K/uL Lymph # (1.0-4.3) K/uL [place] # (0.0-0.8) K/uL Eos # (0.0-0.7) K/uL Baso # (0.0-0.2) K/uL Puncture Site Rra pCO2 41 (35-45) mm/Hg pO2 183 H (80-100) mm/Hg HCO3 29.9 H (21-28) mmol/L ABG pH 7.48 H (7.35-7.45) ABG Total CO2 31.8 H (22-28) mmol/L ABG O2 Saturation 99.8 H (95-98) % ABG Base Excess 6.4 H (-2.0-3.0) mmol/L ABG Hemoglobin 13.4 (11.7-17.4) g/dL ABG Carboxyhemoglobin 2.1 H (0.5-1.5) % POC ABG HHb (Measured) 0.2 (0.0-5.0) % ABG Methemoglobin 1.0 (0.0-3.0) % Stephen Test Na A-a O2 Difference 479.0 mm/Hg Respiratory Index 2.6 Hgb O2 Saturation 96.8 (95.0-98.0) % Vent Mode Prvc Mechanical Rate 14 FiO2 100.0 % Tidal Volume 300 PEEP Sodium (132-148) mmol/L Potassium (3.6-5.2) mmol/L Chloride (98-107) mmol/L Carbon Dioxide (22-30) mmol/L Anion Gap (10-20) BUN (7-17) mg/dL Creatinine (0.7-1.2) mg/dL Est GFR ( Amer) Est GFR (Non-Af Amer) Random Glucose (65-105) mg/dL Calcium (8.6-10.4) mg/dl Phosphorus (2.5-4.5) mg/dL Magnesium (1.6-2.3) mg/dL Total Bilirubin (0.2-1.3) mg/dL AST (14-36) U/L ALT (9-52) U/L Alkaline Phosphatase (38-126) U/L Total Protein (6.3-8.3) g/dL Albumin (3.5-5.0) g/dL Globulin (2.2-3.9) gm/dL Albumin/Globulin Ratio (1.0-2.1) Laboratory Results - last 24 hr 09/20/17 09/21/17 09/21/17 16:10 05:15 06:17 WBC 18.4 H RBC 3.98 Hgb 11.6 Hct 35.8 MCV 89.9 MCH 29.1 MCHC 32.4 L RDW 15.2 H Plt Count 371 MPV 9.5 Neut % (Auto) 80.6 H Lymph % (Auto) 10.6 L [place] % (Auto) 5.8 Eos % (Auto) 2.3 Baso % (Auto) 0.7 Neut # 14.8 H Lymph # 1.9 [place] # 1.1 H Eos # 0.4 Baso # 0.1 Puncture Site Rra Lr pCO2 41 47 H pO2 183 H 394 H HCO3 29.9 H 23.3 ABG pH 7.48 H 7.32 L ABG Total CO2 31.8 H 25.6 ABG O2 Saturation 99.8 H 99.7 H ABG Base Excess 6.4 H -2.1 L ABG Hemoglobin 13.4 10.6 L ABG Carboxyhemoglobin 2.1 H 1.2 POC ABG HHb (Measured) 0.2 0.3 ABG Methemoglobin 1.0 1.5 Stephen Test Na Pos A-a O2 Difference 479.0 260.0 Respiratory Index 2.6 0.7 Hgb O2 Saturation 96.8 97.0 Vent Mode Prvc Prvc Mechanical Rate 14 15 FiO2 100.0 100.0 Tidal Volume 300 400 PEEP 5 Sodium Potassium Chloride Carbon Dioxide Anion Gap BUN Creatinine Est GFR ( Amer) Est GFR (Non-Af Amer) Random Glucose Calcium Phosphorus Magnesium Total Bilirubin AST ALT Alkaline Phosphatase Total Protein Albumin Globulin Albumin/Globulin Ratio 09/21/17 06:17 WBC RBC Hgb Hct MCV MCH MCHC RDW Plt Count MPV Neut % (Auto) Lymph % (Auto) [place] % (Auto) Eos % (Auto) Baso % (Auto) Neut # Lymph # [place] # Eos # Baso # Puncture Site pCO2 pO2 HCO3 ABG pH ABG Total CO2 ABG O2 Saturation ABG Base Excess ABG Hemoglobin ABG Carboxyhemoglobin POC ABG HHb (Measured) ABG Methemoglobin Stephen Test A-a O2 Difference Respiratory Index Hgb O2 Saturation Vent Mode Mechanical Rate FiO2 Tidal Volume PEEP Sodium 133 Potassium 4.3 Chloride 98 Carbon Dioxide 28 Anion Gap 11 BUN 3 L Creatinine 0.3 L Est GFR ( Amer) > 60 Est GFR (Non-Af Amer) > 60 Random Glucose 107 H Calcium 10.3 Phosphorus 4.4 Magnesium 1.8 Total Bilirubin 1.2 AST 18 ALT 27 Alkaline Phosphatase 134 H Total Protein 7.8 Albumin 3.3 L Globulin 4.5 H Albumin/Globulin Ratio 0.7 L EKG/Cardiology Studies: Cardiology / EKG Studies 09/20/17 17:49 EKG [ELECTROCARDIOGRAM] Stat Comment: Mode Of Transportation: Reason For Exam: SINUS TACH Isolation: Contact Critical Care Progress Note - Nutrition Nutrition: Nutrition Category Date Time Status NPO Diet [DIET] Diets 09/18/17 Breakfast Active Attending/Attestation - Attestation I have personally seen and examined this patient.: Yes I have reviewed all pertinent clinical information: Yes Notes (Text): 09/21/17 10:32 Today: , September 20, 2017 The Patient was seen and examined at the bedside, Medical records reviewed, and management issues were discussed and formulated with the house staff. I have reviewed all the relevant clinical, laboratory, hemodynamic, radiographic data and medications Events reviewed Pain issues, skin care, head of the bed elevation, glycemic control were addressed. Agree with above treatment plans as transcribed in note I concur with resident's assessment and plan of care as transcribed in Dr. Massey note. No neurological improvements Patient is POD #1 s/p open tracheostomy Discussed with the family in details diagnosis, treatment plans and alternatives , Code status: Full code Total critical care time 48 minutes
[2017-09-20] MEDS: Magnesium Sulfate 1 gm in D5W 1 GM/100 ML BAG IVPB SCH ×4 (07:59→17:42)
--- NOTE | 2017-09-20 08:03 | PN ---
DATE: 09/19/2017 SUBJECTIVE: The patient was seen and examined at bedside. Events from this morning noted. 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 The patient is unresponsive, not responding to any painful or verbal stimuli. MEDICATIONS: Include Tylenol, artificial tears, Maxipime 2 g IV q.8 hours, Cardizem 30 mg t.i.d., Cardizem drip 5 mg per hour, Diflucan 200 mg daily, vancomycin 2 g IV q.12 hours, thiamine 100 mg daily, K-Dur 20 mEq daily, metoprolol 25 mg p.o. q.8 hours, Protonix 40 mg IV, Keppra 1 g q.12 hours, and Ativan 2 mg IV push q.6 p.r.n. PHYSICAL EXAMINATION: VITAL SIGNS: Blood pressure 112/66, pulse 138, temperature 101.4, respirations 24 on 40% FiO2, tidal volume 400, set rate 10 and PEEP of 5 with O2 saturations 99%. Intake is 1715 mL and output is 805 mL. HEENT: Pupils sluggishly reacting to light and accommodation. No icterus. Positive pallor. NECK: Supple. No JVD with trach collar in place. CVS: S1 and S2 present. Tachycardic. ABDOMEN: Soft and nontender. EXTREMITIES: No edema. [employer]: Sedated, intubated, unresponsive, and involuntary movements. LABORATORY DATA: Labs done from this morning; WBC 14.7, hemoglobin 8.3, hematocrit 25.2, and platelets 366. Sodium 131, potassium 2.9, chloride 94, bicarbonate 29, BUN 9, creatinine 0.3, and glucose 97. UA; specific gravity 1.021, pH of 5, protein 1+, blood 2+, leukocyte esterase 1+, and wbc 9. Repeat cultures were sent. ASSESSMENT AND PLAN: Young female with anemia, ETOH abuse, substance abuse, chronic back problems, status post surgery, wheelchair bound, admitted for status post cardiac arrest, vent dependent respiratory failure, status post trach, anoxic encephalopathy, tracheoesophageal fistula, anemia, status post multiple blood transfusions, multiple electrolyte abnormalities, seizures, and sepsis. We will continue with current antibiotics, on multiple antiseizure medications. Mental status remains the same. We will continue with vent support to keep SpO2 more than 90%. Continue with gastrointestinal and deep venous thrombosis prophylaxis. The patient's condition is critical. Prognosis is guarded. The patient's family does not want DNR, instead wants everything to be done. As per the patient's family's wishes, we will continue with supportive care and we will request Gastrointestinal evaluation on service. Phoenix Caballero MD
--- NOTE | 2017-09-20 08:10 | CP.PCM.PN ---
<Leif Melendrez - Last Filed: 09/21/17 06:20> Subjective - Date & Time of Evaluation Date of Evaluation: 09/20/17 Time of Evaluation: 07:30 - Subjective Subjective: General Surgery Note for Dr. Dockery Patient seen and examined today. No acute event overnight. Patient is s/p open tracheostomy POD #1. She is on vent support. Patient does not respond to verbal or tactile stimuli. ROS unobtainable. Objective - Vital Signs/Intake and Output Vital Signs (last 24 hours): Temp Pulse Resp BP Pulse Ox 99.8 F H 93 H 17 109/79 100 09/20/17 06:08 09/20/17 07:00 09/20/17 07:00 09/20/17 06:58 09/20/17 07:00 Intake and Output: 09/20/17 09/20/17 06:59 18:59 Intake Total 1183.6 27.1 Output Total 945 270 Balance 238.6 -242.9 - Medications Medications: Current Medications Acetaminophen (Tylenol 650mg/20.3ml Solution Ud) 650 mg NG Q6 PRN PRN Reason: Temperature Last Admin: 09/20/17 05:08 Dose: 650 mg Artificial Tears (Lacri-Lube) 1 gm OS Q6H PRN PRN Reason: Sedation Last Admin: 09/06/17 20:10 Dose: 1 gm Diltiazem HCl (Cardizem) 30 mg PO TID [facility] Last Admin: 09/19/17 18:55 Dose: Not Given Heparin Sodium (Porcine) (Heparin) 5,000 units SC Q12 [facility] Last Admin: 09/19/17 22:24 Dose: Not Given Levetiracetam 1,000 mg/ (Dextrose) 110 mls @ 440 mls/hr IVPB Q12H [facility] Last Admin: 09/20/17 05:06 Dose: 440 mls/hr Cefepime HCl (Maxipime Iv 2 Gm Premix) 2 gm in 100 mls @ 200 mls/hr IVPB Q8H [facility] Stop: 09/20/17 11:01 Last Admin: 09/20/17 02:55 Dose: 200 mls/hr Fluconazole (Diflucan Iv 200 Mg/100 Ml Ns) 100 mls @ 100 mls/hr IVPB DAILY [facility] Last Admin: 09/19/17 09:25 Dose: 100 mls/hr Diltiazem HCl 125 mg/ Dextrose 125 mls @ 5 mls/hr IV .Q24H [facility]SEBIO; 5 MG/HR PRN Reason: Protocol Last Admin: 09/20/17 02:54 Dose: 15 mg/hr, 15 mls/hr Propofol (Diprivan) 1,000 mg in 100 mls @ 4.998 mls/hr IV .Q20H1M PRN; Protocol ; 12.4 MCG/KG/MIN PRN Reason: TITRATE PER MD ORDER Last Admin: 09/20/17 05:10 Dose: 30 mcg/kg/min, 12.092 mls/hr Vancomycin HCl 1 gm/ Sodium (Chloride) 250 mls @ 133.333 mls/hr IVPB Q12H [facility] Last Admin: 09/20/17 00:58 Dose: 133.333 mls/hr Potassium Chloride (Potassium Chloride 20 Meq/100 Ml) 20 meq in 100 mls @ 50 mls/hr IVPB ONCE ONE Stop: 09/20/17 08:54 Last Admin: 09/20/17 07:52 Dose: 50 mls/hr Potassium Chloride (Potassium Chloride 20 Meq/100 Ml) 20 meq in 100 mls @ 50 mls/hr IVPB ONCE ONE Stop: 09/20/17 10:59 Magnesium Sulfate/Dextrose (Magnesium Sulfate 1 Gm/100 Ml D5w) 1 gm in 100 mls @ 200 mls/hr IVPB Q30M [facility] Stop: 09/20/17 08:29 Last Admin: 09/20/17 07:59 Dose: 200 mls/hr Lorazepam (Ativan) 2 mg IVP Q6H PRN PRN Reason: Agitation Last Admin: 09/19/17 16:50 Dose: 2 mg Metoprolol Tartrate (Lopressor) 25 mg PO Q8H [facility] Last Admin: 09/20/17 05:06 Dose: 25 mg Pantoprazole Sodium (Protonix Inj) 40 mg IVP DAILY [facility] Last Admin: 09/19/17 09:21 Dose: 40 mg Potassium Chloride (Potassium Chloride Oral Soln) 20 meq PO DAILY [facility] Last Admin: 09/19/17 09:22 Dose: Not Given Scopolamine (Transderm-Scop) 1 patch TD Q3D [facility] Last Admin: 11/06/17 22:18 Dose: 1 patch Thiamine HCl (Vitamin B1 Inj) 100 mg IV DAILY [facility] Last Admin: 09/19/17 09:20 Dose: 100 mg - Labs Labs: 09/20/17 06:26 09/20/17 06:26 PT 16.9 SECONDS (9.7-12.2) H 09/18/17 14:01 INR 1.5 09/18/17 14:01 APTT 33 SECONDS (21-34) 09/18/17 14:01 - Constitutional Appears: No Acute Distress, Chronically Ill - Head Exam Head Exam: ATRAUMATIC, NORMOCEPHALIC - Eye Exam Eye Exam: Normal appearance - ENT Exam ENT Exam: Mucous Membranes Moist - Neck Exam Additional comments: s/p tracheostomy - Respiratory Exam Additional comments: breathing with vent support - Cardiovascular Exam Cardiovascular Exam: REGULAR RHYTHM - GI/Abdominal Exam GI & Abdominal Exam: Distended (mild), Soft. absent: Firm, Rigid - Extremities Exam Extremities Exam: Normal Capillary Refill - Neurological Exam Neurological Exam: Altered - Psychiatric Exam Psychiatric exam: Flat Affect - Skin Skin Exam: Dry, Warm Assessment and Plan - Assessment and Plan (Free Text) Plan: 36 F with respiratory failure s/p cardiac arrest on 08/30, s/p tracehostomy POD# 1 with chronic tracheoesophageal fistula -No feeds at this time -Monitor clinically -Management as per ICU -Will discuss with Dr. Sarkis Melendrez PGY1 <Josef Dockery - Last Filed: 09/22/17 21:22> Objective - Vital Signs/Intake and Output Vital Signs (last 24 hours): Temp Pulse Resp BP Pulse Ox 97.5 F L 99 H 24 117/70 99 09/22/17 20:00 09/22/17 21:00 09/22/17 21:00 09/22/17 21:12 09/22/17 21:00 Intake and Output: 09/22/17 09/23/17 18:59 06:59 Intake Total 2237.0 269 Output Total 1070 125 Balance 1167.0 144 - Medications Medications: Current Medications Acetaminophen (Tylenol 650mg/20.3ml Solution Ud) 650 mg NG Q6 PRN PRN Reason: Temperature Last Admin: 09/21/17 07:17 Dose: 650 mg Artificial Tears (Lacri-Lube) 1 gm OS Q6H PRN PRN Reason: Sedation Last Admin: 09/06/17 20:10 Dose: 1 gm Diltiazem HCl (Cardizem) 30 mg PO QID [facility] Last Admin: 09/22/17 17:41 Dose: 30 mg Famotidine (Pepcid) 20 mg IVP Q12 [facility] Last Admin: 09/22/17 10:54 Dose: 20 mg Heparin Sodium (Porcine) (Heparin) 5,000 units SC Q12 [facility] Last Admin: 09/22/17 10:54 Dose: 5,000 units Levetiracetam 1,000 mg/ (Dextrose) 110 mls @ 440 mls/hr IVPB Q12H [facility] Last Admin: 09/22/17 17:40 Dose: 440 mls/hr Fluconazole (Diflucan Iv 200 Mg/100 Ml Ns) 100 mls @ 100 mls/hr IVPB DAILY [facility] Last Admin: 09/22/17 10:52 Dose: 100 mls/hr Propofol (Diprivan) 1,000 mg in 100 mls @ 4.998 mls/hr IV .Q20H1M PRN; Protocol ; 12.4 MCG/KG/MIN PRN Reason: TITRATE PER MD ORDER Last Admin: 09/22/17 18:23 Dose: 20 mcg/kg/min, 8.061 mls/hr Vancomycin/Sodium Chloride (Vancomycin 1 Gm/Ns 200 Ml) 1 gm in 200 mls @ 133.333 mls/hr IVPB Q8H [facility] Stop: 09/26/17 21:01 Last Admin: 09/22/17 21:11 Dose: 133.333 mls/hr Diltiazem HCl 125 mg/ Dextrose 125 mls @ 15 mls/hr IV .Q8H20M PRN; 15 MG/HR PRN Reason: Protocol Last Admin: 09/22/17 18:48 Dose: 10 mg/hr, 10 mls/hr Meropenem 1 gm/ Dextrose 100 mls @ 100 mls/hr IVPB Q8 [facility] Last Admin: 09/22/17 21:12 Dose: 100 mls/hr Sodium Chloride (Sodium Chloride 0.9%) 1,000 mls @ 75 mls/hr IV .[id number] [facility] Last Admin: 09/22/17 14:00 Dose: 75 mls/hr Lorazepam (Ativan) 2 mg IVP Q6H PRN PRN Reason: Agitation Last Admin: 09/21/17 13:18 Dose: 2 mg Metoprolol Tartrate (Lopressor) 25 mg PO Q8H [facility] Last Admin: 09/22/17 21:12 Dose: 25 mg Scopolamine (Transderm-Scop) 1 patch TD Q3D [facility] Last Admin: 09/20/17 21:18 Dose: 1 patch Thiamine HCl (Vitamin B1 Inj) 100 mg IV DAILY [facility] Last Admin: 09/22/17 10:55 Dose: 100 mg - Labs Labs: 09/22/17 06:23 09/22/17 06:25 PT 16.9 SECONDS (9.7-12.2) H 09/18/17 14:01 INR 1.5 09/18/17 14:01 APTT 33 SECONDS (21-34) 09/18/17 14:01 Attending/Attestation - Attestation I have personally seen and examined this patient.: Yes I have fully participated in the care of the patient.: Yes I have reviewed all pertinent clinical information, including history, physical exam and plan: Yes Notes (Text): Pt with Chronic subglottic TE fistula, S/p Open tracheostomy with bronchoscopy. Called by ICU team to evaluate tracheostomy site with subcutaneous emphysema. Pt was turned today several time due to cleaning related to constant diarrhea. With help of anesthesiologist at bedside, Tracheostomy tube was taken out and ET tube was placed to bypass Chonic TE fistula. No leak from ET tube. Pt is clinically stable. CXR reviewed at bedside.
[2017-09-20 08:11] LABS: EOSINOPHIL 2 % (0-4); NEUTROPHIL 83 % (50-75); TOTAL CELLS COUNTED 100
--- NOTE | 2017-09-20 08:53 | RAD ---
Chest x-ray single frontal view History: Tracheostomy. Comparison 09/19/2017 Findings: Tracheostomy tube in place. Other lines and tubes in stable position. Right hilar prominence. Mild venous congestion. Patchy consolidative changes at the left lung base with small left pleural effusion. Biapical pleural thickening with upper lobe granulomatous changes. Heart size within normal limits. Degenerative changes in the spine and shoulders. Impression: Tracheostomy tube in place. Other lines and tubes in stable position. Right hilar prominence. Mild venous congestion. Patchy consolidative changes at the left lung base with small left pleural effusion. Biapical pleural thickening with upper lobe granulomatous changes. Heart size within normal limits. Degenerative changes in the spine and shoulders.
--- NOTE | 2017-09-20 10:24 | RAD ---
HISTORY: post trach COMPARISON: Portable chest 09/20/2017 7:20 a.m.. FINDINGS: Tracheostomy tube, right center venous line and nasogastric tube are unchanged in position. LUNGS: Images been captured at a diminished inspiratory volume. Limited medial left basilar airspace disease appreciated. None is seen the right. Crowding of the bronchovascular markings identified in the bilateral bases. Limited right hilar prominence is again appreciated. PLEURA: No significant pleural effusion identified, no pneumothorax apparent. CARDIOVASCULAR: Stable relatively prominent appearing cardiac silhouette. Borderline pulmonary vascular congestion. OSSEOUS STRUCTURES: No significant abnormalities. VISUALIZED UPPER ABDOMEN: Normal. OTHER FINDINGS: None. IMPRESSION: Diminished pulmonary vascular congestion pattern. No interval change in left basilar patchy atelectasis or infiltrate.
[2017-09-20] MEDS: Fluconazole IV 200mg/100 ml NS 100 ML IVPB SCH (10:30)
[2017-09-20] MEDS: Potassium Chloride 20 mEq/15 ml LIQ UD PO SCH ×3 (10:32→21:22)
[2017-09-20] MEDS: Thiamine 100 mg/ml Inj IV SCH (10:32)
--- NOTE | 2017-09-20 10:41 | CP.PCM.PN ---
Subjective - Date & Time of Evaluation Date of Evaluation: 09/20/17 Time of Evaluation: 10:37 - Subjective Subjective: F/u dysphagia. S/p trache. TE fistula. No report of melena, RB, SZ, hematuria, hemoptysis, tremor, chills Objective - Vital Signs/Intake and Output Vital Signs (last 24 hours): Temp Pulse Resp BP Pulse Ox 99.8 F H 86 15 98/64 L 100 09/20/17 06:08 09/20/17 09:03 09/20/17 09:03 09/20/17 09:03 09/20/17 09:03 Intake and Output: 09/20/17 09/20/17 06:59 18:59 Intake Total 1183.6 256.3 Output Total 945 370 Balance 238.6 -113.7 - Medications Medications: Current Medications Acetaminophen (Tylenol 650mg/20.3ml Solution Ud) 650 mg NG Q6 PRN PRN Reason: Temperature Last Admin: 09/20/17 05:08 Dose: 650 mg Artificial Tears (Lacri-Lube) 1 gm OS Q6H PRN PRN Reason: Sedation Last Admin: 09/06/17 20:10 Dose: 1 gm Diltiazem HCl (Cardizem) 60 mg PO TID [facility] Heparin Sodium (Porcine) (Heparin) 5,000 units SC Q12 [facility] Last Admin: 09/19/17 22:24 Dose: Not Given Levetiracetam 1,000 mg/ (Dextrose) 110 mls @ 440 mls/hr IVPB Q12H [facility] Last Admin: 09/20/17 05:06 Dose: 440 mls/hr Cefepime HCl (Maxipime Iv 2 Gm Premix) 2 gm in 100 mls @ 200 mls/hr IVPB Q8H [facility] Stop: 09/20/17 11:01 Last Admin: 09/20/17 02:55 Dose: 200 mls/hr Fluconazole (Diflucan Iv 200 Mg/100 Ml Ns) 100 mls @ 100 mls/hr IVPB DAILY [facility] Last Admin: 09/19/17 09:25 Dose: 100 mls/hr Diltiazem HCl 125 mg/ Dextrose 125 mls @ 5 mls/hr IV .Q24H [facility]; 5 MG/HR PRN Reason: Protocol Last Titration: 09/20/17 10:21 Dose: 10 mg/hr, 10 mls/hr Propofol (Diprivan) 1,000 mg in 100 mls @ 4.998 mls/hr IV .Q20H1M PRN; Protocol ; 12.4 MCG/KG/MIN PRN Reason: TITRATE PER MD ORDER Last Admin: 09/20/17 05:10 Dose: 30 mcg/kg/min, 12.092 mls/hr Vancomycin HCl 1 gm/ Sodium (Chloride) 250 mls @ 133.333 mls/hr IVPB Q12H [facility] Last Admin: 09/20/17 00:58 Dose: 133.333 mls/hr Potassium Chloride (Potassium Chloride 20 Meq/100 Ml) 20 meq in 100 mls @ 50 mls/hr IVPB ONCE ONE Stop: 09/20/17 10:59 Lorazepam (Ativan) 2 mg IVP Q6H PRN PRN Reason: Agitation Last Admin: 09/19/17 16:50 Dose: 2 mg Metoprolol Tartrate (Lopressor) 25 mg PO Q8H [facility] Last Admin: 09/20/17 05:06 Dose: 25 mg Pantoprazole Sodium (Protonix Inj) 40 mg IVP DAILY [facility] Last Admin: 09/19/17 09:21 Dose: 40 mg Potassium Chloride (Potassium Chloride Oral Soln) 20 meq PO DAILY [facility] Last Admin: 09/19/17 09:22 Dose: Not Given Scopolamine (Transderm-Scop) 1 patch TD Q3D [facility] Last Admin: 09/17/17 22:18 Dose: 1 patch Thiamine HCl (Vitamin B1 Inj) 100 mg IV DAILY [facility] Last Admin: 09/19/17 09:20 Dose: 100 mg - Labs Labs: 09/20/17 06:26 09/20/17 06:26 PT 16.9 SECONDS (9.7-12.2) H 09/18/17 14:01 INR 1.5 09/18/17 14:01 APTT 33 SECONDS (21-34) 09/18/17 14:01 - ENT Exam Additional comments: intubated - Respiratory Exam Respiratory Exam: Rhonchi - Cardiovascular Exam Cardiovascular Exam: RRR - GI/Abdominal Exam GI & Abdominal Exam: Soft, Normal Bowel Sounds. absent: Tenderness - Extremities Exam Extremities Exam: Pedal Edema - Neurological Exam Neurological Exam: absent: Oriented x3 Assessment and Plan (1) Anemia Status: Acute (2) Anoxic encephalopathy Status: Acute (3) Hypokalemia Status: Acute (4) Alcohol abuse Status: Acute (5) Nutrition disorder Assessment & Plan: We were asked for PEG. Can not do PEG due to TE fistula IF feeding tube is needed, consider surgical PEG. Status: Acute
--- NOTE | 2017-09-20 11:05 | CP.PCM.PN ---
Subjective - Date & Time of Evaluation Date of Evaluation: 09/20/17 Time of Evaluation: 10:45 - Subjective Subjective: Progress note dictated #[id number] Objective - Vital Signs/Intake and Output Vital Signs (last 24 hours): Temp Pulse Resp BP Pulse Ox 99.8 F H 86 15 98/64 L 100 09/20/17 06:08 09/20/17 09:03 09/20/17 09:03 09/20/17 09:03 09/20/17 09:03 Intake and Output: 09/20/17 09/20/17 06:59 18:59 Intake Total 1183.6 256.3 Output Total 945 370 Balance 238.6 -113.7 - Medications Medications: Current Medications Acetaminophen (Tylenol 650mg/20.3ml Solution Ud) 650 mg NG Q6 PRN PRN Reason: Temperature Last Admin: 09/20/17 05:08 Dose: 650 mg Artificial Tears (Lacri-Lube) 1 gm OS Q6H PRN PRN Reason: Sedation Last Admin: 09/06/17 20:10 Dose: 1 gm Diltiazem HCl (Cardizem) 60 mg PO TID [facility] Heparin Sodium (Porcine) (Heparin) 5,000 units SC Q12 [facility] Last Admin: 09/19/17 22:24 Dose: Not Given Levetiracetam 1,000 mg/ (Dextrose) 110 mls @ 440 mls/hr IVPB Q12H [facility] Last Admin: 09/20/17 05:06 Dose: 440 mls/hr Fluconazole (Diflucan Iv 200 Mg/100 Ml Ns) 100 mls @ 100 mls/hr IVPB DAILY [facility] Last Admin: 09/19/17 09:25 Dose: 100 mls/hr Diltiazem HCl 125 mg/ Dextrose 125 mls @ 5 mls/hr IV .Q24H [facility]; 5 MG/HR PRN Reason: Protocol Last Titration: 09/20/17 10:21 Dose: 10 mg/hr, 10 mls/hr Propofol (Diprivan) 1,000 mg in 100 mls @ 4.998 mls/hr IV .Q20H1M PRN; Protocol ; 12.4 MCG/KG/MIN PRN Reason: TITRATE PER MD ORDER Last Admin: 09/20/17 05:10 Dose: 30 mcg/kg/min, 12.092 mls/hr Vancomycin HCl 1 gm/ Sodium (Chloride) 250 mls @ 133.333 mls/hr IVPB Q12H [facility] Last Admin: 09/20/17 00:58 Dose: 133.333 mls/hr Lorazepam (Ativan) 2 mg IVP Q6H PRN PRN Reason: Agitation Last Admin: 09/19/17 16:50 Dose: 2 mg Metoprolol Tartrate (Lopressor) 25 mg PO Q8H [facility] Last Admin: 09/20/17 05:06 Dose: 25 mg Pantoprazole Sodium (Protonix Inj) 40 mg IVP DAILY [facility] Last Admin: 09/19/17 09:21 Dose: 40 mg Potassium Chloride (Potassium Chloride Oral Soln) 20 meq PO DAILY [facility] Last Admin: 09/19/17 09:22 Dose: Not Given Scopolamine (Transderm-Scop) 1 patch TD Q3D [facility] Last Admin: 09/17/17 22:18 Dose: 1 patch Thiamine HCl (Vitamin B1 Inj) 100 mg IV DAILY [facility] Last Admin: 09/19/17 09:20 Dose: 100 mg - Labs Labs: 09/20/17 06:26 09/20/17 06:26 PT 16.9 SECONDS (9.7-12.2) H 09/18/17 14:01 INR 1.5 09/18/17 14:01 APTT 33 SECONDS (21-34) 09/18/17 14:01
--- NOTE | 2017-09-20 13:54 | CP.PCM.CON ---
History of Present Illness - History of Present Illness History of Present Illness: Reason for consultation: Subglotic TE fistula. Reqested by: Dr. Dockery. pt s/e. progress notes and imaging studies reviewed. 36 yo female pmh of ETOH abuse, brought to ER 08-30-17 asystole, coded, and has been intubated on ventilator support ever since. On 09-19-17, percutaneous tracheostomy was performed by who serendipitously discovered chronic TE fistula(subglotic) and tracheostomy was placed distal to the fistula. Currently she is GCS of 3. I am inclined to recommend following staged treatment plan: 1. to prevent aspiration and wean from ventilator, 2. eventual surgical repair of TE fistula which could be a major undertaking even for relatively health individuals. Specifiically, 1. to prevent aspiration: NG to continuous suction, Jejunostomy for nutrition, and place another NG tube in the pharynx for suctioning saliva or tube pharyngostomy. 2. Once the pt is weaned from ventilator, I will consider repair of TE fistula, ie direct or indirect repair of TE fisula/ resection and anastomosis/ gastric or colon pullup. The defect is located too high up in the trechea (subglotic) for either tracheal or esophageal stent, but in time we have to thoroughly re-evaluate the anatomy of the fistula. a/p:1. TE fistula-may be due to prolonged intuabtion + NG tube. 2. See above recommendation. Past Patient History - Infectious Disease Hx of Infectious Diseases: None - Past Medical History & Family History Past Medical History?: Yes - Past Social History Smoking Status: Never Smoked - CARDIAC Hx Cardiac Disorders: No Other/Comment: As per family member : cardiac history of heart going "Fast" - PULMONARY Hx Pneumonia: Yes Other/Comment: smoker - NEUROLOGICAL Hx Neurological Disorder: No - HEENT Hx HEENT Problems: No - RENAL Hx Chronic Kidney Disease: No - ENDOCRINE/METABOLIC Hx Endocrine Disorders: No - HEMATOLOGICAL/ONCOLOGICAL Hx Anemia: Yes - INTEGUMENTARY Hx Dermatological Problems: Yes (HAS MULTIPLE HEALED OPEN LESION TO UPPER ARM, DARKENED SKIN DISCOLOR LLE) Hx Eczema: Yes Other/Comment: H/O OF HAVING HEAD LICE - MUSCULOSKELETAL/RHEUMATOLOGICAL Hx Musculoskeletal Disorders: No Hx Falls: Yes Hx Unsteady Gait: Yes - GASTROINTESTINAL Hx Gastrointestinal Disorders: No (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) HX Swallowing Problems: Yes (SORE THROAT 9-6-14) - GENITOURINARY/GYNECOLOGICAL Hx Genitourinary Disorders: Yes (6 ABORTIONS,3 CHILDREN ,H/O OF C SECTIONS X3) Other/Comment: MENORRHAGIA - PSYCHIATRIC Hx Depression: Yes Hx Substance Use: No - SURGICAL HISTORY Hx Section: Yes - ANESTHESIA Hx Anesthesia: Yes Hx Anesthesia Reactions: No Hx Malignant Hyperthermia: No Meds Allergies/Adverse Reactions: Allergies Allergy/AdvReac Type Severity Reaction Status Date / Time PORK Allergy NAUSEA Verified 01/05/17 11:15 tomato Allergy NAUSEA Verified 01/05/17 11:17 wheat Allergy NAUSEA Verified 01/05/17 11:16 - Medications Medications: Current Medications Acetaminophen (Tylenol 650mg/20.3ml Solution Ud) 650 mg NG Q6 PRN PRN Reason: Temperature Last Admin: 09/20/17 05:08 Dose: 650 mg Artificial Tears (Lacri-Lube) 1 gm OS Q6H PRN PRN Reason: Sedation Last Admin: 09/06/17 20:10 Dose: 1 gm Diltiazem HCl (Cardizem) 60 mg PO TID [facility] Heparin Sodium (Porcine) (Heparin) 5,000 units SC Q12 [facility] Last Admin: 09/20/17 10:31 Dose: 5,000 units Levetiracetam 1,000 mg/ (Dextrose) 110 mls @ 440 mls/hr IVPB Q12H [facility] Last Admin: 09/20/17 05:06 Dose: 440 mls/hr Fluconazole (Diflucan Iv 200 Mg/100 Ml Ns) 100 mls @ 100 mls/hr IVPB DAILY [facility] Last Admin: 09/20/17 10:30 Dose: 100 mls/hr Diltiazem HCl 125 mg/ Dextrose 125 mls @ 5 mls/hr IV .Q24H [facility]; 5 MG/HR PRN Reason: Protocol Last Titration: 09/20/17 10:21 Dose: 10 mg/hr, 10 mls/hr Propofol (Diprivan) 1,000 mg in 100 mls @ 4.998 mls/hr IV .Q20H1M PRN; Protocol ; 12.4 MCG/KG/MIN PRN Reason: TITRATE PER MD ORDER Last Admin: 09/20/17 05:10 Dose: 30 mcg/kg/min, 12.092 mls/hr Vancomycin HCl 1 gm/ Sodium (Chloride) 250 mls @ 133.333 mls/hr IVPB Q12H [facility] Last Admin: 09/20/17 12:53 Dose: 133.333 mls/hr Lorazepam (Ativan) 2 mg IVP Q6H PRN PRN Reason: Agitation Last Admin: 09/19/17 16:50 Dose: 2 mg Metoprolol Tartrate (Lopressor) 25 mg PO Q8H [facility] Last Admin: 09/20/17 12:51 Dose: Not Given Pantoprazole Sodium (Protonix Inj) 40 mg IVP DAILY [facility] Last Admin: 09/20/17 10:32 Dose: 40 mg Potassium Chloride (Potassium Chloride Oral Soln) 20 meq PO DAILY [facility] Last Admin: 09/20/17 10:32 Dose: 20 meq Scopolamine (Transderm-Scop) 1 patch TD Q3D [facility] Last Admin: 09/17/17 22:18 Dose: 1 patch Thiamine HCl (Vitamin B1 Inj) 100 mg IV DAILY [facility] Last Admin: 09/20/17 10:32 Dose: 100 mg Results - Vital Signs Recent Vital Signs: Last Vital Signs Temp 99.5 F 09/20/17 08:00 Pulse 104 H 09/20/17 12:03 Resp 15 09/20/17 12:03 BP 84/59 L 09/20/17 12:51 Pulse Ox 100 09/20/17 12:03 - Labs Result Diagrams: 09/21/17 06:17 09/21/17 06:17 Labs: Laboratory Results - last 24 hr 09/18/17 09/19/17 09/19/17 08:39 19:54 20:04 WBC RBC Hgb Hct MCV MCH MCHC RDW Plt Count MPV Neut % (Auto) Lymph % (Auto) [place] % (Auto) Eos % (Auto) Baso % (Auto) Neut # Lymph # [place] # Eos # Baso # Neutrophils % (Manual) Lymphocytes % (Manual) Monocytes % (Manual) Eosinophils % (Manual) Platelet Estimate Polychromasia Hypochromasia (manual) Anisocytosis (manual) Puncture Site pCO2 pO2 HCO3 ABG pH ABG Total CO2 ABG O2 Saturation ABG Base Excess ABG Hemoglobin ABG Carboxyhemoglobin POC ABG HHb (Measured) ABG Methemoglobin Stephen Test A-a O2 Difference Respiratory Index Hgb O2 Saturation Vent Mode Mechanical Rate FiO2 Tidal Volume PEEP Sodium Potassium Chloride Carbon Dioxide Anion Gap BUN Creatinine Est GFR ( Amer) Est GFR (Non-Af Amer) Random Glucose Calcium Phosphorus Magnesium Total Bilirubin 1.7 H Direct Bilirubin 1.1 H AST ALT Alkaline Phosphatase Total Protein Albumin Globulin Albumin/Globulin Ratio Urine Color Yellow Urine Clarity Hazy Urine pH 5.0 Ur Specific [place] 1.021 Urine Protein 1+ H Urine Glucose (UA) Normal Urine Ketones Negative Urine Blood 2+ H Urine Nitrate Negative Urine Bilirubin Negative Urine Urobilinogen Normal Ur Leukocyte Esterase 1+ H Urine WBC (Auto) 9 H Urine RBC (Auto) 25 H Ur Squamous Epith Cells 1 Urine Bacteria Occ H Blood Type O POSITIVE Antibody Screen Negative Tx React Basic Work-up Clerical Work Check Pre-Trans Blood Type Pre-Trans Vis Hemolysis Pre-Tx Ab Screen (Gel) Post-Trans Blood Type Post-Tx Visible Hemolys Post-Tx Ab Screen (Gel) Post-Trans EMMANUEL Poly Pathologist Comment BBK 09/19/17 09/20/17 09/20/17 20:17 01:21 05:11 WBC RBC Hgb Hct MCV MCH MCHC RDW Plt Count MPV Neut % (Auto) Lymph % (Auto) [place] % (Auto) Eos % (Auto) Baso % (Auto) Neut # Lymph # [place] # Eos # Baso # Neutrophils % (Manual) Lymphocytes % (Manual) Monocytes % (Manual) Eosinophils % (Manual) Platelet Estimate Polychromasia Hypochromasia (manual) Anisocytosis (manual) Puncture Site Lb pCO2 38 pO2 77 L HCO3 29.1 H ABG pH 7.49 H ABG Total CO2 30.2 H ABG O2 Saturation 97.8 ABG Base Excess 5.4 H ABG Hemoglobin 11.9 ABG Carboxyhemoglobin 2.4 H POC ABG HHb (Measured) 2.1 ABG Methemoglobin 1.2 Stephen Test Na A-a O2 Difference 152.0 Respiratory Index 1.8 Hgb O2 Saturation 94.3 L Vent Mode Prvc Mechanical Rate 14 FiO2 40.0 Tidal Volume 400 PEEP 5 Sodium Potassium Chloride Carbon Dioxide Anion Gap BUN Creatinine Est GFR ( Amer) Est GFR (Non-Af Amer) Random Glucose Calcium Phosphorus Magnesium Total Bilirubin 1.2 Direct Bilirubin AST ALT Alkaline Phosphatase Total Protein Albumin Globulin Albumin/Globulin Ratio Urine Color Urine Clarity Urine pH Ur Specific [place] Urine Protein Urine Glucose (UA) Urine Ketones Urine Blood Urine Nitrate Urine Bilirubin Urine Urobilinogen Ur Leukocyte Esterase Urine WBC (Auto) Urine RBC (Auto) Ur Squamous Epith Cells Urine Bacteria Blood Type Antibody Screen Tx React Basic Work-up Compatible Clerical Work Check No discrepancy Pre-Trans Blood Type O POSITIVE Pre-Trans Vis Hemolysis No hemolysis Pre-Tx Ab Screen (Gel) Negative Post-Trans Blood Type O POSITIVE Post-Tx Visible Hemolys No hemolysis Post-Tx Ab Screen (Gel) Negative Post-Trans EMMANUEL Poly Negative Pathologist Comment BBK 09/20/17 09/20/17 06:26 06:26 WBC 16.4 H RBC 3.68 L Hgb 10.9 L D Hct 32.6 L MCV 88.7 MCH 29.8 MCHC 33.6 RDW 15.1 H Plt Count 381 MPV 8.9 Neut % (Auto) 82.1 H Lymph % (Auto) 9.3 L [place] % (Auto) 6.2 Eos % (Auto) 1.6 Baso % (Auto) 0.8 Neut # 13.5 H Lymph # 1.5 [place] # 1.0 H Eos # 0.3 Baso # 0.1 Neutrophils % (Manual) 83 H Lymphocytes % (Manual) 13 L Monocytes % (Manual) 2 Eosinophils % (Manual) 2 Platelet Estimate Normal Polychromasia Slight Hypochromasia (manual) Slight Anisocytosis (manual) Slight Puncture Site pCO2 pO2 HCO3 ABG pH ABG Total CO2 ABG O2 Saturation ABG Base Excess ABG Hemoglobin ABG Carboxyhemoglobin POC ABG HHb (Measured) ABG Methemoglobin Stephen Test A-a O2 Difference Respiratory Index Hgb O2 Saturation Vent Mode Mechanical Rate FiO2 Tidal Volume PEEP Sodium 129 L Potassium 3.2 L Chloride 93 L Carbon Dioxide 28 Anion Gap 11 BUN 5 L Creatinine 0.2 L Est GFR ( Amer) > 60 Est GFR (Non-Af Amer) > 60 Random Glucose 88 Calcium 9.1 Phosphorus 3.1 Magnesium 1.4 L Total Bilirubin 1.4 H Direct Bilirubin AST 24 ALT 16 Alkaline Phosphatase 122 Total Protein 7.3 Albumin 3.1 L Globulin 4.3 H Albumin/Globulin Ratio 0.7 L Urine Color Urine Clarity Urine pH Ur Specific [place] Urine Protein Urine Glucose (UA) Urine Ketones Urine Blood Urine Nitrate Urine Bilirubin Urine Urobilinogen Ur Leukocyte Esterase Urine WBC (Auto) Urine RBC (Auto) Ur Squamous Epith Cells Urine Bacteria Blood Type Antibody Screen Tx React Basic Work-up Clerical Work Check Pre-Trans Blood Type Pre-Trans Vis Hemolysis Pre-Tx Ab Screen (Gel) Post-Trans Blood Type Post-Tx Visible Hemolys Post-Tx Ab Screen (Gel) Post-Trans EMMANUEL Poly Pathologist Comment BBK
[2017-09-20] MEDS ORDERED: EPINEPHrine 1 mg/ml (1:1000) Inj ONE (15:33)
[2017-09-20] MEDS ORDERED: Lidocaine 4% (Laryng-O-Jet) Kit MM ONE (15:33)
[2017-09-20] MEDS ORDERED: Lidocaine 1% Inj (20ml) ONE (15:33)
[2017-09-20] MEDS ORDERED: Lidocaine 2% Inj (20ml) ONE (15:36)
--- NOTE | 2017-09-20 16:06 | RAD ---
HISTORY: subcutaneous emphysema COMPARISON: 09/20/2017 at 0850 hours FINDINGS: LUNGS: Shallow lung volumes re- produced. Tracheostomy tube inserted balloon fairly distended. The overlying paramediastinal extensive subcutaneous edema impedes evaluation of each medial mid to upper lung zone. Mid lung zone similar sub cm inferred granulomas. Larger 1.5 cm nodular nodular opacity appreciated as such on prior studies left lateral to the aortic knob -significance unknown- given short interval time frame. PLEURA: Probable small left inferolateral pleural effusion with contiguous left inferolateral pleural thickening. As mentioned subcutaneous extensive emphysema. This limits optimal evaluation for any apical concomitant pneumothoraces. A pneumo mediastinum is suggested air outlining the heart and descending thoracic aorta. CARDIOVASCULAR: Mild cardiomegaly. Probable mild central pulmonary vascular congestion -similar to perhaps slightly increased OSSEOUS STRUCTURES: No significant abnormalities. VISUALIZED UPPER ABDOMEN: Normal. OTHER FINDINGS: Right internal jugular vein catheter insertion tip over inferior right atrium similar appearance NG tube tip in gastric body IMPRESSION: Interval extensive subcutaneous emphysema/ pneumomediastinum 1.5 cm nodular opacity left upper lung zone unclear significance given short interval time frame. Recommend follow-up imaging in approximately 24 hours Left granulomatous changes Mild cardiomegaly. The venous congestion. Left inferolateral small pleural effusion with likely pleural thickening. Concomitant minimal patchy infiltrate here not excluded. No dense consolidation here noted
[2017-09-20] MEDS ORDERED: Phenylephrine 30 MG in Dextrose 5% In Water 250 ML IV PRN (16:07)
--- NOTE | 2017-09-20 16:07 | CP.PCM.PN ---
Subjective - Date & Time of Evaluation Date of Evaluation: 09/20/17 Time of Evaluation: 15:50 - Subjective Subjective: RN called: Patient's neck swollen PAtient seen and examined at bedside. Vitals reviewed vent Vt 300, rr 14, peep 0, peak presure 19 b/l air entry (+)left and right neck swollen (+)S1 (+)S2 A/P -Pneumomediastinum with Sub Q air in neck: CXR revealed sub Q air -d/w Dr. Dockery informed of patient's condition. -Dr. Hopkins had informed that he will d/c trach and orally intubate with cuff placement distal to site of fistula. -ABG pending, Official CXR pending -35 minutes of Critical care time spent co-ordinating care bewtwen surgery/ nursing and OR team Objective - Vital Signs/Intake and Output Vital Signs (last 24 hours): Temp Pulse Resp BP Pulse Ox 99.5 F 114 H 26 H 122/93 H 99 09/20/17 08:00 09/20/17 13:35 09/20/17 13:35 09/20/17 13:35 09/20/17 13:35 Intake and Output: 09/20/17 09/20/17 06:59 18:59 Intake Total 1183.6 877.6 Output Total 945 1595 Balance 238.6 -717.4 - Medications Medications: Current Medications Acetaminophen (Tylenol 650mg/20.3ml Solution Ud) 650 mg NG Q6 PRN PRN Reason: Temperature Last Admin: 09/20/17 05:08 Dose: 650 mg Artificial Tears (Lacri-Lube) 1 gm OS Q6H PRN PRN Reason: Sedation Last Admin: 09/06/17 20:10 Dose: 1 gm Diltiazem HCl (Cardizem) 60 mg PO TID [facility] Last Admin: 09/20/17 14:54 Dose: Not Given Heparin Sodium (Porcine) (Heparin) 5,000 units SC Q12 [facility] Last Admin: 09/20/17 10:31 Dose: 5,000 units Levetiracetam 1,000 mg/ (Dextrose) 110 mls @ 440 mls/hr IVPB Q12H [facility] Last Admin: 09/20/17 05:06 Dose: 440 mls/hr Fluconazole (Diflucan Iv 200 Mg/100 Ml Ns) 100 mls @ 100 mls/hr IVPB DAILY [facility] Last Admin: 09/20/17 10:30 Dose: 100 mls/hr Diltiazem HCl 125 mg/ Dextrose 125 mls @ 5 mls/hr IV .Q24H [facility]; 5 MG/HR PRN Reason: Protocol Last Admin: 09/20/17 14:55 Dose: 10 mg/hr, 10 mls/hr Propofol (Diprivan) 1,000 mg in 100 mls @ 4.998 mls/hr IV .Q20H1M PRN; Protocol ; 12.4 MCG/KG/MIN PRN Reason: TITRATE PER MD ORDER Last Admin: 09/20/17 12:56 Dose: 30 mcg/kg/min, 12.092 mls/hr Vancomycin/Sodium Chloride (Vancomycin 1 Gm/Ns 200 Ml) 1 gm in 200 mls @ 133.333 mls/hr IVPB Q12H [facility] Stop: 09/24/17 01:01 Lorazepam (Ativan) 2 mg IVP Q6H PRN PRN Reason: Agitation Last Admin: 09/19/17 16:50 Dose: 2 mg Metoprolol Tartrate (Lopressor) 25 mg PO Q8H [facility] Last Admin: 09/20/17 12:51 Dose: Not Given Pantoprazole Sodium (Protonix Inj) 40 mg IVP DAILY [facility] Last Admin: 09/20/17 10:32 Dose: 40 mg Potassium Chloride (Potassium Chloride Oral Soln) 20 meq PO DAILY [facility] Last Admin: 09/20/17 10:32 Dose: 20 meq Scopolamine (Transderm-Scop) 1 patch TD Q3D [facility] Last Admin: 09/17/17 22:18 Dose: 1 patch Thiamine HCl (Vitamin B1 Inj) 100 mg IV DAILY [facility] Last Admin: 09/20/17 10:32 Dose: 100 mg - Labs Labs: 09/20/17 06:26 09/20/17 06:26 PT 16.9 SECONDS (9.7-12.2) H 09/18/17 14:01 INR 1.5 09/18/17 14:01 APTT 33 SECONDS (21-34) 09/18/17 14:01
[2017-09-20 16:15] LABS: ABG MECHANICAL RATE 14; ARTERIAL BLOOD GAS MODE PRVC; ARTERIAL BLOOD HGB O2 SAT 96.8 % (95.0-98.0); CARBOXYHEMOGLOBIN 2.1 % (0.5-1.5); DRAW SITE RRA; HHB 0.2 % (0.0-5.0)
--- NOTE | 2017-09-20 16:56 | PCM.ANES ---
Anesthesia Emergent Intubation - Diagnosis Working Diagnosis:: subcutaneous emphysema s/p tracheostomy POD 1 - Consult Reason for Consult:: endotracheal intubation - Intubation Attempts Previous Number of Intubation Attempts:: 0 - Pre-Intubation Vital Signs Blood Pressure: 106/83 Heart Rate: 129 Respiratory Rate: 12 O2 Sat: 99 FIO2: 100 Oxygen Delivery Method: Tracheostomy Level Of Consciousness: Sedated Intubation Meds Given: Propofol (On propofol sedation 30mcg/kg/min. Rocuronium 20mg IV) - Airway Management Oropharyngeal Area Suctioned: Yes PreOxygenation: 100 Inhalation: No Rapid Sequence: No Cricoid Pressure: No Possible Aspiration: No - Method of Intubation Intubation Method: Oral ETT ETT Size: 6.5 Lipline@: 23 Easy: Yes Atramatic: Yes - Intubation Devices [place] Scope Used: Yes (glidescope 3) Fiber Optic Scope: Yes (to assess oralpharyngeal and vocal cord edema) - Placement Confirmation Breath Sounds Present & Equal Bilaterally: Yes Gurgling Sounds Not Audible at Epigastrum: Yes Positive EtCO2: Yes Portable CXR: Yes - Post-Intubation Vital Signs Blood Pressure: 123/79 Heart Rate: 130 Respiratory Rate: 12 O2 Sat: 99 FIO2: 100
--- NOTE | 2017-09-20 18:12 | RAD ---
HISTORY: Oral intubation COMPARISON: Portable chest 09/20/2017 3:35 p.m. FINDINGS: LUNGS: Endotracheal tube replaces tracheostomy tube in terminates in the plane of the trachea just below the level of the clavicles. Right central venous line as well as nasogastric tube are unchanged in position. Right hemidiaphragm again elevated with limited scattered infiltrates identified at the upper lung zones bilaterally as well as the medial right base. Dense infiltrate or atelectasis seen posterior to the left heart with pneumomediastinum again underlying the descending thoracic aorta in medial left hemidiaphragm. PLEURA: No significant pleural effusion identified, no pneumothorax apparent. CARDIOVASCULAR: Prior cardiac silhouette appears stable. No definite pulmonary vascular derangement. OSSEOUS STRUCTURES: No significant abnormalities. VISUALIZED UPPER ABDOMEN: Normal. OTHER FINDINGS: Emphysematous changes again seen the supraclavicular regions bilaterally as well as the upper chest wall distorting the medial bilateral lung chilel symmetrically. IMPRESSION: Adequate apparent placement of endotracheal tube replacing tracheostomy tube. Right central venous line and nasogastric tube unchanged in position. Bilateral infiltrates again identified as well as the mediastinum as per above.
--- NOTE | 2017-09-21 00:18 | CT ---
EXAM: CT Chest With Intravenous Contrast CLINICAL HISTORY: 36 years old, female; Condition or disease; Lung condition and disease; Emphysema; Additional info: Subcutaneous emphysema of face, neck and chest TECHNIQUE: Axial computed tomography images of the chest with intravenous contrast. All CT scans at this facility use one or more dose reduction techniques, viz.: automated exposure control; ma/kV adjustment per patient size (including targeted exams where dose is matched to indication; i.e. head); or iterative reconstruction technique. Coronal and sagittal reformatted images were created and reviewed. CONTRAST: 50 mL of visipaque 320 administered intravenously. COMPARISON: CT - ANGIO CHEST PE PROTOCOL 2017-09-11 17:20 FINDINGS: Lungs: There is consolidation in the left lower lobe with air bronchograms. This may represent pneumonic infiltrate. It is difficult to exclude a component of aspiration or pneumonia. There is a question of a high density fusion here as well. This could represent hemothorax or proteinaceous fluid. Please correlate clinically. Smaller air space opacities are present in the right lower lobe and left upper lobe. There is interlobular septal thickening in the apices. This is nonspecific but can be seen in pulmonary edema or lymphangitic carcinomatosis. Patchy groundglass opacities are present throughout both lungs. These are nonspecific and may relate to pulmonary edema, atelectasis, early infiltrates. Pleural space: See above. Heart: The heart is borderline in size. No significant pericardial effusion. Mediastinum: There is prominent pneumomediastinum and this is associated with subcutaneous emphysema of both upper chest regions in the bilateral lower neck region. Thyroid: Thyroid is normal in size and position as visualized. Bones/joints: There are mild degenerative changes present. No acute fracture. No dislocation. Soft tissues: See above. Vasculature: Thoracic aorta is unremarkable. No thoracic aortic aneurysm. Lymph nodes: There is no axillary adenopathy. There are some top normal mediastinal nodes without chichi adenopathy. Gallbladder and bile ducts: Gallbladder is moderately distended and contains small gallstones dependently. Pancreas: The pancreas is grossly abnormal and contains peripancreatic stranding and fluid with multiple small peripancreatic collections suggesting pseudocysts. Please correlate for the possibility of underlying pancreatitis. Spleen: The spleen is normal. Adrenals: The adrenal glands are normal. Kidneys and ureters: Visualized kidneys are unremarkable. Tubes, lines and devices: Endotracheal tube is present and terminates 3 CM above the julieth. There is a right internal jugular central venous catheter which terminates in the right atrium. There is a right PICC line which terminates in the right subclavian vein. IMPRESSION: 1. There is prominent pneumomediastinum and this is associated with subcutaneous emphysema of both upper chest regions in the bilateral lower neck region. 2. There is consolidation in the left lower lobe with air bronchograms. This may represent pneumonic infiltrate. It is difficult to exclude a component of aspiration or pneumonia. There is a question of a high density fusion here as well. This could represent hemothorax or proteinaceous fluid. Please correlate clinically. Smaller air space opacities are present in the right lower lobe and left upper lobe. 3. There is interlobular septal thickening in the apices. This is nonspecific but can be seen in pulmonary edema or lymphangitic carcinomatosis. 4. Patchy groundglass opacities are present throughout both lungs. These are nonspecific and may relate to pulmonary edema, atelectasis, early infiltrates. There is a diffuse decrease in hepatic parenchymal density, consistent with fatty infiltration. 5. The pancreas is grossly abnormal and contains peripancreatic stranding and fluid with multiple small peripancreatic collections suggesting pseudocysts. Please correlate for the possibility of underlying pancreatitis. 6. Additional incidental and/or chronic findings as described.
[2017-09-21] MEDS: Potassium Chloride 20 mEq/15 ml LIQ UD PO SCH ×2 (00:29→10:31)
[2017-09-21] MEDS: Vancomycin 1 gm/NS 200 ml 1 GM/200 ML BAG IVPB SCH ×3 (00:29→20:50)
--- NOTE | 2017-09-21 01:02 | PN ---
DATE: 09/20/2017 SUBJECTIVE: The patient was seen and examined at bedside. The patient remains tachycardic on vent status post tracheostomy. PHYSICAL EXAMINATION: VITAL SIGNS: Blood pressure 94/44, pulse 117, respirations 24, O2 sat 100% on 40% FiO2, tidal volume 400, set rate 10 and PEEP of 5, T-Max is 101.3. Intake is 3753 mL and output is 1310 mL. HEENT: Pupils sluggishly reacting to light, no icterus, positive pallor. NECK: Supple. Tracheal collar in placed. CARDIOVASCULAR: S1 and S2 present, regular. ABDOMEN: Soft and nontender. CENTRAL NERVOUS SYSTEM: Sedated, intubated, unresponsive, not responding to the deep painful stimuli. Involuntary movements noted. EXTREMITIES: No edema. MEDICATIONS: Include Tylenol as needed, artificial tears, , Cardizem 60 mg p.o. t.i.d., Diflucan 200 mg IV daily, heparin, Keppra 1000 mg b.i.d., Ativan as needed, Lopressor 25 mg p.o. q. 8 hours, Protonix 40 mg IV push daily, phenylephrine 20 mcg/minute, KCl 20 mEq p.o. daily, propofol, thiamine 100 mg daily, vancomycin 1 g IV q. 12 hours. LABORATORY DATA: Done from this morning, WBC 16.4, hemoglobin 10.9, hematocrit 32.6 and platelets 381. ABG on 100% FiO2, pH 7.48, PCO2 41, pO2 183. Sodium 129, potassium 3.2, chloride 93, bicarbonate 28, BUN 5, creatinine 0.2, glucose 88, calcium 9.1, phosphorus 3.1, magnesium 1.4, total bili 1.4. Chest x-ray had a great apparent placement of endotracheal tube, replacing the tracheostomy tube, right central venous line and nasogastric tube unchanged in position, bilateral infiltrates. ASSESSMENT AND PLAN: Young female with ethanol abuse, substance abuse, chronic back problems, status post surgery, wheelchair bound, admitted status post cardiac arrest with ventilatory dependent respiratory failure, anoxic encephalopathy, sepsis, seizures, multiple electrolyte abnormalities, status post tracheostomy, later this afternoon found to be having subcutaneous emphysema as documented in anesthesia note. The patient is put back on 100% FiO2. Neuro status remains the same. Continue with current antibiotics. Reconsult surgery for further management of emphysema. Electrolytes replaced. Condition is critical and prognosis is guarded. Phoenix Caballero MD
--- NOTE | 2017-09-21 01:36 | CT ---
EXAM: CT Angiography Head With Intravenous Contrast CT Angiography Neck With Intravenous Contrast EXAM DATE/TIME: 09/20/2017 3:33 PM CLINICAL HISTORY: 36 years old, female; Signs and symptoms; Headache and syncope and collapse; Additional info: Subcutaneous emphysema TECHNIQUE: Axial computed tomographic angiography images of the head and neck with intravenous contrast using CT angiography protocol. All CT scans at this facility use one or more dose reduction techniques, viz.: automated exposure control; ma/kV adjustment per patient size (including targeted exams where dose is matched to indication; i.e. head); or iterative reconstruction technique. All CT scans at this facility use one or more dose reduction techniques, viz.: automated exposure control; ma/kV adjustment per patient size (including targeted exams where dose is matched to indication; i.e. head); or iterative reconstruction technique. MIP reconstructed images were created and reviewed. Coronal and sagittal reformatted images were created and reviewed. CONTRAST: 100 mL of visipaque 320 administered intravenously. COMPARISON: Prior head CT of 2017-09-12 FINDINGS: HEAD: RIGHT ANTERIOR CEREBRAL ARTERY: A1 segment of the right anterior cerebral artery is hypoplastic, a normal variant. No evidence of occlusion. RIGHT MIDDLE CEREBRAL ARTERY: No evidence of occlusion. No aneurysm visualized. RIGHT POSTERIOR CEREBRAL ARTERY: No evidence of occlusion. No aneurysm visualized. LEFT ANTERIOR CEREBRAL ARTERY: No evidence of occlusion. No aneurysm visualized. LEFT MIDDLE CEREBRAL ARTERY: No evidence of occlusion. No aneurysm visualized. LEFT POSTERIOR CEREBRAL ARTERY: No evidence of occlusion. No aneurysm visualized. BASILAR ARTERY: No evidence of occlusion or significant stenosis. No aneurysm visualized. DURAL SINUSES/CEREBRAL VEINS: Intracranial air is seen, which is located in the cavernous sinuses, compatible with venous air. SINUSES: Fluid in the sphenoid sinuses bilaterally, suspicious for acute sinusitis. MASTOID AIR CELLS: Diffuse fluid in the left mastoid air cells and fluid in the left middle ear cavity, suspicious for left otomastoiditis. Patchy fluid in the right mastoid air cells, suspicious for right mastoiditis. ORBITS: Left orbital emphysema, small in amount. NECK: RIGHT COMMON CAROTID ARTERY: No evidence of occlusion or significant stenosis. No evidence of dissection. RIGHT INTERNAL CAROTID ARTERY: No evidence of occlusion. No aneurysm visualized. RIGHT EXTERNAL CAROTID ARTERY: No evidence of occlusion. RIGHT VERTEBRAL ARTERY: No evidence of occlusion or significant stenosis. No evidence of dissection. LEFT COMMON CAROTID ARTERY: No evidence of occlusion or significant stenosis. No evidence of dissection. LEFT INTERNAL CAROTID ARTERY: No evidence of occlusion. No aneurysm visualized. LEFT EXTERNAL CAROTID ARTERY: No evidence of occlusion. LEFT VERTEBRAL ARTERY: No evidence of occlusion or significant stenosis. No evidence of dissection. RETROPHARYNGEAL SPACE: See below. HEAD and NECK: BONES/JOINTS: No acute bony abnormality identified. SOFT TISSUES: Extensive soft tissue air. This is seen in the neck, facial, and upper chest soft tissues diffusely. There is also air in the retropharyngeal space. In the midline anterior neck soft tissues, at the level of the thyroid gland, there is a deep soft tissue defect seen, which extends from the skin surface to the anterior wall of the trachea. This is filled with debris. It measures 3 cm in AP dimensions and 1.6 cm in width. Cannot exclude a fistulous tract connecting the trachea and the skin, i.e., a tracheocutaneous fistula. TUBES, LINES AND DEVICES: Endotracheal tube is in place. The balloon of the endotracheal tube is located below the level of the large midline soft tissue defect described above, and is fully inflated with air. Nasogastric tube is in place. OTHER FINDINGS: Extensive pneumomediastinum is noted in the upper mediastinum. CAROTID STENOSIS REFERENCE USING NASCET CRITERIA: % ICA stenosis = (1 - narrowest ICA diameter/diameter of distal cervical ICA) x 100. Mild - <50% stenosis. Moderate - 50-69% stenosis. Severe - 70-94% stenosis. Near occlusion - 95-99% stenosis. Occluded - 100% stenosis. IMPRESSION: - Extensive soft tissue air, including air in the retropharyngeal space. - Deep soft tissue defect in the midline anterior neck soft tissues, which extends from the skin surface to the anterior wall of the trachea. Cannot exclude a tracheocutaneous fistula, secondary to a focal tracheal rupture or injury. This could be the cause of the soft tissue gas. An endotracheal tube is in place. - Extensive pneumomediastinum. - Left orbital emphysema. - Findings highly suspicious for diffuse left otomastoiditis. - No evidence of occlusion or other acute abnormality of the major intracranial and neck arteries. - See above for remaining findings.
[2017-09-21 05:26] LABS: ABG ALLEN TEST POS; ABG MECHANICAL RATE 15; ARTERIAL BLOOD GAS MODE PRVC; ATERIAL BLOOD GAS PEEP 5; CARBOXYHEMOGLOBIN 1.2 % (0.5-1.5); DRAW SITE LR; HHB 0.3 % (0.0-5.0); METHEMOGLOBIN 1.5 % (0.0-3.0)
[2017-09-21] MEDS ORDERED: levETIRAcetam 100 mg/ml (5ml) Oral Syringe PO SCH (06:00)
[2017-09-21 06:39] LABS: CHLORIDE 98 mmol/L (98-107)
[2017-09-21 06:40] LABS: POTASSIUM 4.3 mmol/L (3.6-5.2); SODIUM 133 mmol/L (132-148)
[2017-09-21 06:42] LABS: ALB/GLOB RATIO 0.7 (1.0-2.1); ALKALINE PHOSPHATASE 134 U/L (38-126); AST/SGOT 18 U/L (14-36); BILIRUBIN,TOTAL 1.2 mg/dL (0.2-1.3); CARBON DIOXIDE 28 mmol/L (22-30); GFR AFRICAN-AMERICAN > 60; TOTAL PROTEIN 7.8 g/dL (6.3-8.3)
[2017-09-21 06:43] LABS: ALT/SGPT 27 U/L (9-52); BLOOD UREA NITROGEN 3 mg/dL (7-17); CALCIUM 10.3 mg/dl (8.6-10.4); GLUCOSE,RANDOM 107 mg/dL (65-105); MAGNESIUM 1.8 mg/dL (1.6-2.3); PHOSPHOROUS 4.4 mg/dL (2.5-4.5)
[2017-09-21 06:46] LABS: BASO # 0.1 K/uL (0.0-0.2); BASO % 0.7 % (0.0-2.0); EOS # 0.4 K/uL (0.0-0.7); EOS % 2.3 % (0.0-4.0); HEMATOCRIT 35.8 % (34.0-47.0); LYMPH # 1.9 K/uL (1.0-4.3); LYMPH % 10.6 % (20.0-40.0); MEAN CELL VOLUME 89.9 fL (81.0-99.0); MEAN CORPUSCULAR HEMOGLOBIN 29.1 pg (27.0-31.0); MEAN CORPUSCULAR HGB CONC 32.4 g/dL (33.0-37.0); MEAN PLATELET VOLUME 9.5 fL (7.2-11.7); MONO # 1.1 K/uL (0.0-0.8); MONO % 5.8 % (0.0-10.0); NRBC % 0.1 % (0.0-2.0); RED CELL DISTRIBUTION WIDTH 15.2 % (11.5-14.5); WHITE BLOOD COUNT 18.4 K/uL (4.8-10.8)
[2017-09-21] MEDS: Acetaminophen 650mg/20.3ml solution UD NG PRN (07:17)
[2017-09-21] MEDS: Propofol 10 mg/ml 1,000 MG/100 ML VIAL IV PRN ×2 (07:19→19:20)
[2017-09-21] MEDS ORDERED: Sodium Chloride 0.9% 1,000 ML IV ONE (09:52)
[2017-09-21] MEDS ORDERED: Pantoprazole 40 mg EC Tab PO SCH (10:00)
[2017-09-21] MEDS: Fluconazole IV 200mg/100 ml NS 100 ML IVPB SCH (10:18)
[2017-09-21] MEDS: Thiamine 100 mg/ml Inj IV SCH (10:32)
--- NOTE | 2017-09-21 10:41 | CP.PCM.PN ---
Subjective - Date & Time of Evaluation Date of Evaluation: 09/21/17 Time of Evaluation: 10:20 - Subjective Subjective: Progress note dictated #[id number] Objective - Vital Signs/Intake and Output Vital Signs (last 24 hours): Temp Pulse Resp BP Pulse Ox 100.4 F H 107 H 17 90/60 L 100 09/21/17 08:17 09/21/17 08:59 09/21/17 08:59 09/21/17 08:59 09/21/17 08:59 Intake and Output: 09/21/17 09/21/17 06:59 18:59 Intake Total 1177.2 139 Output Total 830 665 Balance 347.2 -526 - Medications Medications: Current Medications Acetaminophen (Tylenol 650mg/20.3ml Solution Ud) 650 mg NG Q6 PRN PRN Reason: Temperature Last Admin: 09/21/17 07:17 Dose: 650 mg Artificial Tears (Lacri-Lube) 1 gm OS Q6H PRN PRN Reason: Sedation Last Admin: 09/06/17 20:10 Dose: 1 gm Diltiazem HCl (Cardizem) 30 mg PO QID [facility] Famotidine (Pepcid) 20 mg IVP Q12 [facility] Heparin Sodium (Porcine) (Heparin) 5,000 units SC Q12 [facility] Last Admin: 09/20/17 21:18 Dose: 5,000 units Levetiracetam 1,000 mg/ (Dextrose) 110 mls @ 440 mls/hr IVPB Q12H [facility] Last Admin: 09/21/17 06:31 Dose: 440 mls/hr Fluconazole (Diflucan Iv 200 Mg/100 Ml Ns) 100 mls @ 100 mls/hr IVPB DAILY [facility] Last Admin: 09/21/17 10:18 Dose: 100 mls/hr Diltiazem HCl 125 mg/ Dextrose 125 mls @ 5 mls/hr IV .Q24H [facility]; 5 MG/HR PRN Reason: Protocol Last Titration: 09/21/17 00:32 Dose: 5 mg/hr, 5 mls/hr Propofol (Diprivan) 1,000 mg in 100 mls @ 4.998 mls/hr IV .Q20H1M PRN; Protocol ; 12.4 MCG/KG/MIN PRN Reason: TITRATE PER MD ORDER Last Admin: 09/21/17 07:19 Dose: 20 mcg/kg/min, 8.061 mls/hr Vancomycin/Sodium Chloride (Vancomycin 1 Gm/Ns 200 Ml) 1 gm in 200 mls @ 133.333 mls/hr IVPB Q12H [facility] Stop: 09/24/17 01:01 Last Admin: 09/21/17 00:29 Dose: 133.333 mls/hr Phenylephrine HCl 30 mg/ (Dextrose) 253 mls @ 10.12 mls/hr IV .Q24H PRN; Protocol; 20 MCG/MIN PRN Reason: TITRATE PER MD ORDER Last Titration: 09/21/17 05:40 Dose: 0 mcg/min, 0 mls/hr Sodium Chloride (Sodium Chloride 0.9%) 1,000 mls @ 1,000 mls/hr IV .Q1H ONE Stop: 09/21/17 10:51 Sodium Chloride (Sodium Chloride 0.9%) 1,000 mls @ 75 mls/hr IV .[id number] [facility] Lorazepam (Ativan) 2 mg IVP Q6H PRN PRN Reason: Agitation Last Admin: 09/20/17 22:37 Dose: 2 mg Metoprolol Tartrate (Lopressor) 25 mg PO Q8H [facility] Last Admin: 09/21/17 05:40 Dose: 25 mg Potassium Chloride (Potassium Chloride Oral Soln) 20 meq PO DAILY [facility] Last Admin: 09/20/17 10:32 Dose: 20 meq Scopolamine (Transderm-Scop) 1 patch TD Q3D [facility] Last Admin: 09/20/17 21:18 Dose: 1 patch Thiamine HCl (Vitamin B1 Inj) 100 mg IV DAILY [facility] Last Admin: 09/20/17 10:32 Dose: 100 mg - Labs Labs: 09/21/17 06:17 09/21/17 06:17 PT 16.9 SECONDS (9.7-12.2) H 09/18/17 14:01 INR 1.5 09/18/17 14:01 APTT 33 SECONDS (21-34) 09/18/17 14:01
[2017-09-21] MEDS: Sodium Chloride 0.9% 1,000 ML IV SCH ×2 (10:53→23:20)
--- NOTE | 2017-09-21 11:37 | CP.PCM.PN ---
Subjective - Date & Time of Evaluation Date of Evaluation: 09/21/17 Time of Evaluation: 11:22 - Subjective Subjective: Palliative progress note Patient seen and examined in bed, remains unresponsive to stimuli. patient is post tracheostomy yesterday when developed extensive pneumomediastinum and needed to be reintubated. it is suspected that due to soft tissue injury fistula fas developed what further made procedure impossible. patient has also developed MRSA and Staph infection in sputum during this hospital stay. patient is critically ill on full life support. Since the admission, I met once with the daughter and patient's mother and had multiple phone conversations with the daughter Holland. As I documented earlier, the daughter become persistent in her request for full life support regardless of patient's suffering, lost quality of life and poor prognosis. The patient was planned a few times in the past for the tracheostomy procedure and each time it had to be cancelled due to patient's unstable condition. I had discussed this patient's condition and concerns with Doctor Abrahan a few times, as we both agreed that any further agressive interventions would not be beneficial and we agreed that we should call for another family meeting with attendance of extended family, ICU drying frame operator, Primary MD, Flight Service Agent and Palliative care to establish the best plan of care for this patient. I spoke to daughter over the phone this morning. She stated knowledge of unsuccessful trach placement and agreed to come in tomorrow with her aunt and grandmother for the family meeting. She was to call me back with time of the meting convinient for the family. Impression * This is a terminally ill patient with unknown wishes for the end of life care * Patient's daughter is advocating for the patient and has been requesting the use of all agressive measures to support ;james * After yesterday's unsuccessful tracheostomy patient was reintubated and the daughter began to understand the severity of her mother's condition * Family meeting tomorrow with the daughter, patient's mother and sister, time to be announced * * Plan * Family meeting for finalizing plans of care * I truly believe that this patient should be allowed natural as any further aggressive interventions ,most likely will not improve her quality of life Palliative care will continue to provide support for the family during this difficult time Objective - Vital Signs/Intake and Output Vital Signs (last 24 hours): Temp Pulse Resp BP Pulse Ox 100.4 F H 107 H 17 90/60 L 100 09/21/17 08:17 09/21/17 08:59 09/21/17 08:59 09/21/17 08:59 09/21/17 08:59 Intake and Output: 09/21/17 09/21/17 06:59 18:59 Intake Total 1177.2 139 Output Total 830 665 Balance 347.2 -526 - Medications Medications: Current Medications Acetaminophen (Tylenol 650mg/20.3ml Solution Ud) 650 mg NG Q6 PRN PRN Reason: Temperature Last Admin: 09/21/17 07:17 Dose: 650 mg Artificial Tears (Lacri-Lube) 1 gm OS Q6H PRN PRN Reason: Sedation Last Admin: 09/06/17 20:10 Dose: 1 gm Diltiazem HCl (Cardizem) 30 mg PO QID [facility] Last Admin: 09/21/17 10:48 Dose: 30 mg Famotidine (Pepcid) 20 mg IVP Q12 [facility] Last Admin: 09/21/17 10:48 Dose: 20 mg Heparin Sodium (Porcine) (Heparin) 5,000 units SC Q12 [facility] Last Admin: 09/21/17 10:28 Dose: 5,000 units Levetiracetam 1,000 mg/ (Dextrose) 110 mls @ 440 mls/hr IVPB Q12H [facility] Last Admin: 09/21/17 06:31 Dose: 440 mls/hr Fluconazole (Diflucan Iv 200 Mg/100 Ml Ns) 100 mls @ 100 mls/hr IVPB DAILY [facility] Last Admin: 09/21/17 10:18 Dose: 100 mls/hr Diltiazem HCl 125 mg/ Dextrose 125 mls @ 5 mls/hr IV .Q24H [facility]; 5 MG/HR PRN Reason: Protocol Last Titration: 09/21/17 00:32 Dose: 5 mg/hr, 5 mls/hr Propofol (Diprivan) 1,000 mg in 100 mls @ 4.998 mls/hr IV .Q20H1M PRN; Protocol ; 12.4 MCG/KG/MIN PRN Reason: TITRATE PER MD ORDER Last Admin: 09/21/17 07:19 Dose: 20 mcg/kg/min, 8.061 mls/hr Vancomycin/Sodium Chloride (Vancomycin 1 Gm/Ns 200 Ml) 1 gm in 200 mls @ 133.333 mls/hr IVPB Q12H [facility] Stop: 09/24/17 01:01 Last Admin: 09/21/17 00:29 Dose: 133.333 mls/hr Phenylephrine HCl 30 mg/ (Dextrose) 253 mls @ 10.12 mls/hr IV .Q24H PRN; Protocol; 20 MCG/MIN PRN Reason: TITRATE PER MD ORDER Last Titration: 09/21/17 05:40 Dose: 0 mcg/min, 0 mls/hr Sodium Chloride (Sodium Chloride 0.9%) 1,000 mls @ 75 mls/hr IV .[id number] [facility] Last Admin: 09/21/17 10:53 Dose: 75 mls/hr Lorazepam (Ativan) 2 mg IVP Q6H PRN PRN Reason: Agitation Last Admin: 09/20/17 22:37 Dose: 2 mg Metoprolol Tartrate (Lopressor) 25 mg PO Q8H [facility] Last Admin: 09/21/17 05:40 Dose: 25 mg Potassium Chloride (Potassium Chloride Oral Soln) 20 meq PO DAILY [facility] Last Admin: 09/21/17 10:31 Dose: 20 meq Scopolamine (Transderm-Scop) 1 patch TD Q3D [facility] Last Admin: 09/20/17 21:18 Dose: 1 patch Thiamine HCl (Vitamin B1 Inj) 100 mg IV DAILY [facility] Last Admin: 09/21/17 10:32 Dose: 100 mg - Labs Labs: 09/21/17 06:17 09/21/17 06:17 PT 16.9 SECONDS (9.7-12.2) H 09/18/17 14:01 INR 1.5 09/18/17 14:01 APTT 33 SECONDS (21-34) 09/18/17 14:01
--- NOTE | 2017-09-21 11:38 | CP.PCM.PCO ---
Physician Communication Note - Physician Communication Note Physician Communication Note: Family meeting pending tomorrow, time to be announced by family
--- NOTE | 2017-09-21 14:09 | CP.CCUPN ---
<Liset Massey - Last Filed: 09/21/17 13:56> CCU Subjective - Physician Review Subjective (Free Text): Patient seen and examined at bedside. Patient currently intubated. ROS unobtainable due to patient's current clinical status. CCU Objective - Vital Signs / Intake & Output Vital Signs (Last 4 hours): Vital Signs Temp Pulse Resp BP Pulse Ox 09/21/17 12:00 99.4 F 09/21/17 11:00 110 H 17 100 09/21/17 10:59 110 H 20 102/69 100 09/21/17 10:00 105 H 17 100 09/21/17 09:59 105 H 15 98/62 L 100 Intake and Output (Last 8hrs): Intake & Output 09/20/17 09/21/17 09/21/17 22:59 06:59 14:59 Intake Total 911.6 619 1495 Output Total 630 460 885 Balance 281.6 159 610 Intake: IV 228 25 140 Intake, IV Amount 503.6 474 1335 Right Distal Port 200 48 Internal Jugular Right Forearm 88.6 64 32 Right Proximal Internal 105 60 0 Jugular - Distal port Right Proximal Port 160 34 1939 Internal Jugular left hand 300 Tube Feeding 20 Other 180 120 Output: Gastric Amount 250 Stomach 250 Urine 630 460 385 Urethral (Andino) 630 460 385 Stool 250 - Physical Exam Head: Positive for: Atraumatic, Normocephalic Pupils: Positive for: Sluggish Extroacular Muscles: Negative for: EOMI Mouth: Positive for: Moist Mucous Membranes Respiratory/Chest: Positive for: Good Air Exchange, Other (subcutaneous emphysema ) Cardiovascular: Positive for: Normal S1, S2, Tachycardic Abdomen: Positive for: Normal Bowel Sounds. Negative for: Distention Upper Extremity: Negative for: Edema Lower Extremity: Negative for: Edema Neurological: Negative for: GCS=15, Speech Normal Skin: Positive for: Normal Color Psychiatric: Negative for: Alert, Oriented x 3 - Medications Active Medications: Active Medications Generic Name Dose Route Start Last Admin Trade Name Freq PRN Reason Stop Dose Admin Acetaminophen 650 mg 09/15/17 03:51 09/21/17 07:17 Tylenol 650mg/20.3ml Solution Ud NG 650 mg Q6 PRN Administration Temperature Artificial Tears 1 gm 08/31/17 12:00 09/06/17 20:10 Lacri-Lube OS 1 gm Q6H PRN Administration Sedation Diltiazem HCl 30 mg 09/21/17 10:00 09/21/17 10:48 Cardizem PO 30 mg QID EUSEBIO Administration Famotidine 20 mg 09/21/17 10:45 09/21/17 10:48 Pepcid IVP 20 mg Q12 EUSEBIO Administration Heparin Sodium (Porcine) 5,000 units 09/14/17 12:30 09/21/17 10:28 Heparin SC 5,000 units Q12 EUSEBIO Administration Levetiracetam 1,000 mg/ 110 mls @ 440 mls/hr 09/10/17 06:00 09/21/17 06:31 Dextrose IVPB 440 mls/hr Q12H EUSEBIO Administration Fluconazole 100 mls @ 100 mls/hr 09/17/17 10:30 09/21/17 10:18 Diflucan Iv 200 Mg/100 Ml Ns IVPB 100 mls/hr DAILY EUSEBIO Administration Diltiazem HCl 125 mg/ Dextrose 125 mls @ 5 mls/hr 09/17/17 14:15 09/21/17 11: 30 IV 3 mg/hr .Q24H EUSEBIO 3 mls/hr Protocol Titration 5 MG/HR Propofol 1,000 mg in 100 mls @ 4.998 mls/hr 09/18/17 13:13 09/21/17 07:19 Diprivan IV 20 mcg/kg/min .Q20H1M PRN 8.061 mls/hr TITRATE PER MD ORDER Administration Protocol 12.4 MCG/KG/MIN Vancomycin/Sodium Chloride 1 gm in 200 mls @ 133.333 mls/hr 09/21/17 01:00 00:29 Vancomycin 1 Gm/Ns 200 Ml IVPB 09/24/17 01:01 133.333 mls/hr Q12H EUSEBIO Administration Phenylephrine HCl 30 mg/ 253 mls @ 10.12 mls/hr 09/20/17 16:07 09/21/17 05:40 Dextrose IV 0 mcg/min .Q24H PRN 0 mls/hr TITRATE PER MD ORDER Titration Protocol 20 MCG/MIN Sodium Chloride 1,000 mls @ 75 mls/hr 09/21/17 10:00 09/21/17 10:53 Sodium Chloride 0.9% IV 75 mls/hr .[id number] EUSEBIO Administration Lorazepam 2 mg 09/17/17 09:59 09/21/17 13:18 Ativan IVP 2 mg Q6H PRN Administration Agitation Metoprolol Tartrate 25 mg 09/13/17 13:00 09/21/17 05:40 Lopressor PO 25 mg Q8H EUSEBIO Administration Potassium Chloride 20 meq 09/14/17 14:30 09/21/17 10:31 Potassium Chloride Oral Soln PO 20 meq DAILY EUSEBIO Administration Scopolamine 1 patch 09/14/17 22:00 09/20/17 21:18 Transderm-Scop TD 1 patch Q3D EUSEBIO Administration Thiamine HCl 100 mg 08/30/17 22:15 09/21/17 10:32 Vitamin B1 Inj IV 100 mg DAILY EUSEBIO Administration - Patient Studies Lab Studies: Microbiology Studies 09/19/17 09:43 Gram Stain - Final Trachasp Sputum Culture - Final Methicillin Resistant S Aureus 09/19/17 20:25 - Final Blood Transfusion Bag - Preliminary NO GROWTH AFTER 24 HOURS Lab Studies 09/21/17 09/21/17 09/21/17 Range/Units 12:33 06:17 06:17 WBC 18.4 H (4.8-10.8) K/uL RBC 3.98 (3.80-5.20) Mil/uL Hgb 11.6 (11.0-16.0) g/dL Hct 35.8 (34.0-47.0) % MCV 89.9 (81.0-99.0) fL MCH 29.1 (27.0-31.0) pg MCHC 32.4 L (33.0-37.0) g/dL RDW 15.2 H (11.5-14.5) % Plt Count 371 (130-400) K/uL MPV 9.5 (7.2-11.7) fL Neut % (Auto) 80.6 H (50.0-75.0) % Lymph % (Auto) 10.6 L (20.0-40.0) % [place] % (Auto) 5.8 (0.0-10.0) % Eos % (Auto) 2.3 (0.0-4.0) % Baso % (Auto) 0.7 (0.0-2.0) % Neut # 14.8 H (1.8-7.0) K/uL Lymph # 1.9 (1.0-4.3) K/uL [place] # 1.1 H (0.0-0.8) K/uL Eos # 0.4 (0.0-0.7) K/uL Baso # 0.1 (0.0-0.2) K/uL Puncture Site pCO2 (35-45) mm/Hg pO2 (80-100) mm/Hg HCO3 (21-28) mmol/L ABG pH (7.35-7.45) ABG Total CO2 (22-28) mmol/L ABG O2 Saturation (95-98) % ABG Base Excess (-2.0-3.0) mmol/L ABG Hemoglobin (11.7-17.4) g/dL ABG Carboxyhemoglobin (0.5-1.5) % POC ABG HHb (Measured) (0.0-5.0) % ABG Methemoglobin (0.0-3.0) % Stephen Test A-a O2 Difference mm/Hg Respiratory Index Hgb O2 Saturation (95.0-98.0) % Vent Mode Mechanical Rate FiO2 % Tidal Volume PEEP Sodium 133 (132-148) mmol/L Potassium 4.3 (3.6-5.2) mmol/L Chloride 98 (98-107) mmol/L Carbon Dioxide 28 (22-30) mmol/L Anion Gap 11 (10-20) BUN 3 L (7-17) mg/dL Creatinine 0.3 L (0.7-1.2) mg/dL Est GFR ( Amer) > 60 Est GFR (Non-Af Amer) > 60 Random Glucose 107 H (65-105) mg/dL Calcium 10.3 (8.6-10.4) mg/dl Phosphorus 4.4 (2.5-4.5) mg/dL Magnesium 1.8 (1.6-2.3) mg/dL Total Bilirubin 1.2 (0.2-1.3) mg/dL AST 18 (14-36) U/L ALT 27 (9-52) U/L Alkaline Phosphatase 134 H (38-126) U/L Total Protein 7.8 (6.3-8.3) g/dL Albumin 3.3 L (3.5-5.0) g/dL Globulin 4.5 H (2.2-3.9) gm/dL Albumin/Globulin Ratio 0.7 L (1.0-2.1) Random Vancomycin 10.33 ug/mL 09/21/17 09/20/17 Range/Units 05:15 16:10 WBC (4.8-10.8) K/uL RBC (3.80-5.20) Mil/uL Hgb (11.0-16.0) g/dL Hct (34.0-47.0) % MCV (81.0-99.0) fL MCH (27.0-31.0) pg MCHC (33.0-37.0) g/dL RDW (11.5-14.5) % Plt Count (130-400) K/uL MPV (7.2-11.7) fL Neut % (Auto) (50.0-75.0) % Lymph % (Auto) (20.0-40.0) % [place] % (Auto) (0.0-10.0) % Eos % (Auto) (0.0-4.0) % Baso % (Auto) (0.0-2.0) % Neut # (1.8-7.0) K/uL Lymph # (1.0-4.3) K/uL [place] # (0.0-0.8) K/uL Eos # (0.0-0.7) K/uL Baso # (0.0-0.2) K/uL Puncture Site Lr Rra pCO2 47 H 41 (35-45) mm/Hg pO2 394 H 183 H (80-100) mm/Hg HCO3 23.3 29.9 H (21-28) mmol/L ABG pH 7.32 L 7.48 H (7.35-7.45) ABG Total CO2 25.6 31.8 H (22-28) mmol/L ABG O2 Saturation 99.7 H 99.8 H (95-98) % ABG Base Excess -2.1 L 6.4 H (-2.0-3.0) mmol/L ABG Hemoglobin 10.6 L 13.4 (11.7-17.4) g/dL ABG Carboxyhemoglobin 1.2 2.1 H (0.5-1.5) % POC ABG HHb (Measured) 0.3 0.2 (0.0-5.0) % ABG Methemoglobin 1.5 1.0 (0.0-3.0) % Stephen Test Pos Na A-a O2 Difference 260.0 479.0 mm/Hg Respiratory Index 0.7 2.6 Hgb O2 Saturation 97.0 96.8 (95.0-98.0) % Vent Mode Prvc Prvc Mechanical Rate 15 14 FiO2 100.0 100.0 % Tidal Volume 400 300 PEEP 5 Sodium (132-148) mmol/L Potassium (3.6-5.2) mmol/L Chloride (98-107) mmol/L Carbon Dioxide (22-30) mmol/L Anion Gap (10-20) BUN (7-17) mg/dL Creatinine (0.7-1.2) mg/dL Est GFR ( Amer) Est GFR (Non-Af Amer) Random Glucose (65-105) mg/dL Calcium (8.6-10.4) mg/dl Phosphorus (2.5-4.5) mg/dL Magnesium (1.6-2.3) mg/dL Total Bilirubin (0.2-1.3) mg/dL AST (14-36) U/L ALT (9-52) U/L Alkaline Phosphatase (38-126) U/L Total Protein (6.3-8.3) g/dL Albumin (3.5-5.0) g/dL Globulin (2.2-3.9) gm/dL Albumin/Globulin Ratio (1.0-2.1) Random Vancomycin ug/mL Laboratory Results - last 24 hr 09/20/17 09/21/17 09/21/17 16:10 05:15 06:17 WBC 18.4 H RBC 3.98 Hgb 11.6 Hct 35.8 MCV 89.9 MCH 29.1 MCHC 32.4 L RDW 15.2 H Plt Count 371 MPV 9.5 Neut % (Auto) 80.6 H Lymph % (Auto) 10.6 L [place] % (Auto) 5.8 Eos % (Auto) 2.3 Baso % (Auto) 0.7 Neut # 14.8 H Lymph # 1.9 [place] # 1.1 H Eos # 0.4 Baso # 0.1 Puncture Site Rra Lr pCO2 41 47 H pO2 183 H 394 H HCO3 29.9 H 23.3 ABG pH 7.48 H 7.32 L ABG Total CO2 31.8 H 25.6 ABG O2 Saturation 99.8 H 99.7 H ABG Base Excess 6.4 H -2.1 L ABG Hemoglobin 13.4 10.6 L ABG Carboxyhemoglobin 2.1 H 1.2 POC ABG HHb (Measured) 0.2 0.3 ABG Methemoglobin 1.0 1.5 Stephen Test Na Pos A-a O2 Difference 479.0 260.0 Respiratory Index 2.6 0.7 Hgb O2 Saturation 96.8 97.0 Vent Mode Prvc Prvc Mechanical Rate 14 15 FiO2 100.0 100.0 Tidal Volume 300 400 PEEP 5 Sodium Potassium Chloride Carbon Dioxide Anion Gap BUN Creatinine Est GFR ( Amer) Est GFR (Non-Af Amer) Random Glucose Calcium Phosphorus Magnesium Total Bilirubin AST ALT Alkaline Phosphatase Total Protein Albumin Globulin Albumin/Globulin Ratio Random Vancomycin 09/21/17 09/21/17 06:17 12:33 WBC RBC Hgb Hct MCV MCH MCHC RDW Plt Count MPV Neut % (Auto) Lymph % (Auto) [place] % (Auto) Eos % (Auto) Baso % (Auto) Neut # Lymph # [place] # Eos # Baso # Puncture Site pCO2 pO2 HCO3 ABG pH ABG Total CO2 ABG O2 Saturation ABG Base Excess ABG Hemoglobin ABG Carboxyhemoglobin POC ABG HHb (Measured) ABG Methemoglobin Stephen Test A-a O2 Difference Respiratory Index Hgb O2 Saturation Vent Mode Mechanical Rate FiO2 Tidal Volume PEEP Sodium 133 Potassium 4.3 Chloride 98 Carbon Dioxide 28 Anion Gap 11 BUN 3 L Creatinine 0.3 L Est GFR ( Amer) > 60 Est GFR (Non-Af Amer) > 60 Random Glucose 107 H Calcium 10.3 Phosphorus 4.4 Magnesium 1.8 Total Bilirubin 1.2 AST 18 ALT 27 Alkaline Phosphatase 134 H Total Protein 7.8 Albumin 3.3 L Globulin 4.5 H Albumin/Globulin Ratio 0.7 L Random Vancomycin 10.33 EKG/Cardiology Studies: Cardiology / EKG Studies 09/20/17 17:49 EKG [ELECTROCARDIOGRAM] Stat Comment: Mode Of Transportation: Reason For Exam: SINUS TACH Isolation: Contact Fingerstick Blood Sugar Results: 123 Review of Systems - Review of Systems Systems not reviewed;Unavailable: Intubated Critical Care Progress Note - Nutrition Nutrition: Nutrition Category Date Time Status NPO Diet [DIET] Diets 09/18/17 Breakfast Active Assessment/Plan - Assessment and Plan (Free Text) Assessment: 36 year old female with past medical history of anemia and alcohol abuse, who was found unconscious by . EMS was called and patient was found to be in Asystole, ACLS protocol was initiated and 2 rounds of epinephrine and then ROSC. Patient was unconscious in the ED. Subsequently, patient was admitted to the ICU and hypothermia protocol was initiated. Plan: Neuro: Intubated, Acute seizures Neurologist, Dr. Pugh---> help appreciated * Management as per recommendation Medication/Management: * Keppra 500mg IV Q12H * Propofol (Titratable) Imaging: * EEG (08/31/17): globally abnormal EEG because of persistent spike and wave activities consistent with status epilepticus. Please correlate the findings with neurological and radiological studies * Cerebral blood flow (09/03/17): does not conform to nuclear medicine diagnosis of brain . There is a faint cerebral flow, the study is considered technically suboptimal for reasons related to technique and poor visualization of carotid arteries. * CT head w/o contrast (09/03/17): No mass effect or edema. No atrophy or chronic microvascular. * EEG (09/06): status epilepticus * head CT (09/12/17): asymmetric low attenuation in the L basal ganglia could represent anoxic injury. Mild global parenchymal volume loss, advanced for the patient's age. Cardio: Cardiopulmonary Arrest, tachycardia Management: * Intubated * Hypothermia protocol was initiated * Lopressor 25mg po q8h * Cardizem drip started (09/17) Pulm: Respiratory distress secondary to cardiac arrest, POD#1 s/p trach * Intubated * sputum culture: staph * D Dimer: [id number] * CTA: no evidence of PE, bibasilar consolidation. Upper lobe interstitial infiltrates. 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 Plaza consulted, help appreciated * 09/20 CTA head and neck: extensive soft tissue air, including air in retropharyngeal space. deep soft tissue defect in the midline anterior neck soft tissues which extends from the skin surface to the anterior wall of the trachee. Cannot exclude tracheocutaneous fistula, secondary to a focal tracheal rupture or injury. This could be the cause of the soft tissue gas. An ET tube is in place. Extensive pneumomediastinum, left orbital emphysema, findings highly suspicious for diffuse left otomastoiditis. * Dr. Dockery d/c trach on 09/21 and orally intubated with cuff placement distal to site of fistula GI: Diarrhea * C. Dif negative (09/03) * repeat C. dif (09/17) negative * Dr. Hernandez consulted for PEG placement, because of TE fistula probably better to surgically placed G tube * Dr. Skinner agrees that PEG cannot be done due to TE fistula, surgical PEG to be considered Renal: Electrolyte imbalance Nephrology, Dr. Ramos---> Help appreciated * Management as per recommendation * electrolytes repleted as needed Heme: anemia * H/H: on 09/12 dropped to 7.3/22.5 from 8.1/24.5- patient was transfused 2 u PRBCs * H/H: 9.8/30.4 * 09/18- INR: 1.8, 2u FFP transfused and Vit K 10mg sc given * 09/19: INR: 1.5, 2 units FFP HgB dropped to 8.3 from 9.8, transfuse 1 u PRBCs ID: * urine: yeast * sputum: staph aureus * Cefepime 2gm q8h (started on 09/15) * Vancomycin 1gm q12h * f/u random vanco * 09/12: repeat cultures: urine- yeast species, blood negative * repeat sputum culture on 09/19: MRSA * repeat blood culture 09/19: no growth Psych: Alcohol abuse disorder * Thiamine 100mg IV daily Prophylaxis measures: * R IJ in place * DVT: SCDs, Heparin 5,000 units SC Q12H * GI: Protonix 40mg IV daily * tube feeds: jevity <Daysi Nguyen - Last Filed: 09/21/17 18:52> CCU Subjective - Physician Review Subjective (Free Text): Patient was seen and examined at the bedside, Medical records reviewed, and management issues were discussed and formulated with the house staff. I have reviewed all the relevant clinical, laboratory, hemodynamic, radiographic data and medications. Events reviewed Skin care, head of the bed elevation, glycemic control were addressed. Patient persistantly Tachycardiac, started on cardizem IV ggt Lytes supplemented Pain issues addressed Full vent suport of now due to poor mental status Patient with dx of sepsis 2nd left lower lobar pnemonia and pneumomediastinum -s/p removal of trach and placement of ET tube bypassing the trach site. -neck swelling significantly improved -tachycardia 2nd liekly pneumomediastinum -continue abx f/u sputum culture -Neurological status very poor, off sedation -Patient is severely malnurished, start gastrotrophic tube feeds at 20 ml/hr -Prognosis very poor -cc time 45 minutes Critical Care Time Spent (in minutes): 35 CCU Objective - Vital Signs / Intake & Output Vital Signs (Last 4 hours): Vital Signs Temp Pulse Resp BP Pulse Ox 09/21/17 18:00 125 H 23 79 L 09/21/17 17:57 125 H 25 H 101/84 100 09/21/17 17:26 124 H 26 H 112/78 97 09/21/17 17:00 121 H 27 H 100 09/21/17 16:55 121 H 19 109/72 98 09/21/17 16:25 121 H 21 104/71 100 09/21/17 16:00 99.5 F 09/21/17 15:58 120 H 26 H 98/66 L 97 09/21/17 15:26 119 H 20 112/71 98 09/21/17 15:00 123 H 22 97 09/21/17 14:56 124 H 21 102/61 99 Intake and Output (Last 8hrs): Intake & Output 09/21/17 09/21/17 09/21/17 06:59 14:59 22:59 Intake Total 619 1659 488 Output Total 460 985 350 Balance 159 674 138 Intake: IV 25 140 Intake, IV Amount 474 1479 363 Right Distal Port 56 32 Internal Jugular Right Forearm 64 35 14 Right Proximal Internal 60 0 Jugular - Distal port Right Proximal Port 50 1388 317 Internal Jugular left hand 300 Tube Feeding 40 125 Other 120 Output: Gastric Amount 250 Stomach 250 Urine 460 485 350 Urethral (Andino) 460 485 350 Stool 250 - Medications Active Medications: Active Medications Generic Name Dose Route Start Last Admin Trade Name Freq PRN Reason Stop Dose Admin Acetaminophen 650 mg 09/15/17 03:51 09/21/17 07:17 Tylenol 650mg/20.3ml Solution Ud NG 650 mg Q6 PRN Administration Temperature Artificial Tears 1 gm 08/31/17 12:00 09/06/17 20:10 Lacri-Lube OS 1 gm Q6H PRN Administration Sedation Diltiazem HCl 30 mg 09/21/17 10:00 09/21/17 17:14 Cardizem PO 30 mg QID EUSEBIO Administration Famotidine 20 mg 09/21/17 10:45 09/21/17 10:48 Pepcid IVP 20 mg Q12 EUSEBIO Administration Heparin Sodium (Porcine) 5,000 units 09/14/17 12:30 09/21/17 10:28 Heparin SC 5,000 units Q12 EUSEBIO Administration Levetiracetam 1,000 mg/ 110 mls @ 440 mls/hr 09/10/17 06:00 09/21/17 17:13 Dextrose IVPB 440 mls/hr Q12H EUSEBIO Administration Fluconazole 100 mls @ 100 mls/hr 09/17/17 10:30 09/21/17 10:18 Diflucan Iv 200 Mg/100 Ml Ns IVPB 100 mls/hr DAILY EUSEBIO Administration Diltiazem HCl 125 mg/ Dextrose 125 mls @ 5 mls/hr 09/17/17 14:15 09/21/17 15: 06 IV Not Given .Q24H EUSEBIO Protocol 5 MG/HR Propofol 1,000 mg in 100 mls @ 4.998 mls/hr 09/18/17 13:13 09/21/17 07:19 Diprivan IV 20 mcg/kg/min .Q20H1M PRN 8.061 mls/hr TITRATE PER MD ORDER Administration Protocol 12.4 MCG/KG/MIN Phenylephrine HCl 30 mg/ 253 mls @ 10.12 mls/hr 09/20/17 16:07 09/21/17 05:40 Dextrose IV 0 mcg/min .Q24H PRN 0 mls/hr TITRATE PER MD ORDER Titration Protocol 20 MCG/MIN Sodium Chloride 1,000 mls @ 75 mls/hr 09/21/17 10:00 09/21/17 10:53 Sodium Chloride 0.9% IV 75 mls/hr .[id number] EUSEBIO Administration Vancomycin/Sodium Chloride 1 gm in 200 mls @ 133.333 mls/hr 09/21/17 21:00 Vancomycin 1 Gm/Ns 200 Ml IVPB 09/26/17 21:01 Q8H EUSEBIO Lorazepam 2 mg 09/17/17 09:59 09/21/17 13:18 Ativan IVP 2 mg Q6H PRN Administration Agitation Metoprolol Tartrate 25 mg 09/13/17 13:00 09/21/17 14:24 Lopressor PO Not Given Q8H EUSEBIO Potassium Chloride 20 meq 09/14/17 14:30 09/21/17 10:31 Potassium Chloride Oral Soln PO 20 meq DAILY EUSEBIO Administration Scopolamine 1 patch 09/14/17 22:00 09/20/17 21:18 Transderm-Scop TD 1 patch Q3D EUSEBIO Administration Thiamine HCl 100 mg 08/30/17 22:15 09/21/17 10:32 Vitamin B1 Inj IV 100 mg DAILY EUSEBIO Administration - Patient Studies Lab Studies: Microbiology Studies 09/19/17 09:43 Gram Stain - Final Trachasp Sputum Culture - Final Methicillin Resistant S Aureus 09/19/17 20:25 - Final Blood Transfusion Bag - Preliminary NO GROWTH AFTER 24 HOURS Lab Studies 09/21/17 09/21/17 09/21/17 Range/Units 12:33 06:17 06:17 WBC 18.4 H (4.8-10.8) K/uL RBC 3.98 (3.80-5.20) Mil/uL Hgb 11.6 (11.0-16.0) g/dL Hct 35.8 (34.0-47.0) % MCV 89.9 (81.0-99.0) fL MCH 29.1 (27.0-31.0) pg MCHC 32.4 L (33.0-37.0) g/dL RDW 15.2 H (11.5-14.5) % Plt Count 371 (130-400) K/uL MPV 9.5 (7.2-11.7) fL Neut % (Auto) 80.6 H (50.0-75.0) % Lymph % (Auto) 10.6 L (20.0-40.0) % [place] % (Auto) 5.8 (0.0-10.0) % Eos % (Auto) 2.3 (0.0-4.0) % Baso % (Auto) 0.7 (0.0-2.0) % Neut # 14.8 H (1.8-7.0) K/uL Lymph # 1.9 (1.0-4.3) K/uL [place] # 1.1 H (0.0-0.8) K/uL Eos # 0.4 (0.0-0.7) K/uL Baso # 0.1 (0.0-0.2) K/uL Puncture Site pCO2 (35-45) mm/Hg pO2 (80-100) mm/Hg HCO3 (21-28) mmol/L ABG pH (7.35-7.45) ABG Total CO2 (22-28) mmol/L ABG O2 Saturation (95-98) % ABG Base Excess (-2.0-3.0) mmol/L ABG Hemoglobin (11.7-17.4) g/dL ABG Carboxyhemoglobin (0.5-1.5) % POC ABG HHb (Measured) (0.0-5.0) % ABG Methemoglobin (0.0-3.0) % Stephen Test A-a O2 Difference mm/Hg Respiratory Index Hgb O2 Saturation (95.0-98.0) % Vent Mode Mechanical Rate FiO2 % Tidal Volume PEEP Sodium 133 (132-148) mmol/L Potassium 4.3 (3.6-5.2) mmol/L Chloride 98 (98-107) mmol/L Carbon Dioxide 28 (22-30) mmol/L Anion Gap 11 (10-20) BUN 3 L (7-17) mg/dL Creatinine 0.3 L (0.7-1.2) mg/dL Est GFR ( Amer) > 60 Est GFR (Non-Af Amer) > 60 Random Glucose 107 H (65-105) mg/dL Calcium 10.3 (8.6-10.4) mg/dl Phosphorus 4.4 (2.5-4.5) mg/dL Magnesium 1.8 (1.6-2.3) mg/dL Total Bilirubin 1.2 (0.2-1.3) mg/dL AST 18 (14-36) U/L ALT 27 (9-52) U/L Alkaline Phosphatase 134 H (38-126) U/L Total Protein 7.8 (6.3-8.3) g/dL Albumin 3.3 L (3.5-5.0) g/dL Globulin 4.5 H (2.2-3.9) gm/dL Albumin/Globulin Ratio 0.7 L (1.0-2.1) Random Vancomycin 10.33 ug/mL 09/21/17 Range/Units 05:15 WBC (4.8-10.8) K/uL RBC (3.80-5.20) Mil/uL Hgb (11.0-16.0) g/dL Hct (34.0-47.0) % MCV (81.0-99.0) fL MCH (27.0-31.0) pg MCHC (33.0-37.0) g/dL RDW (11.5-14.5) % Plt Count (130-400) K/uL MPV (7.2-11.7) fL Neut % (Auto) (50.0-75.0) % Lymph % (Auto) (20.0-40.0) % [place] % (Auto) (0.0-10.0) % Eos % (Auto) (0.0-4.0) % Baso % (Auto) (0.0-2.0) % Neut # (1.8-7.0) K/uL Lymph # (1.0-4.3) K/uL [place] # (0.0-0.8) K/uL Eos # (0.0-0.7) K/uL Baso # (0.0-0.2) K/uL Puncture Site Lr pCO2 47 H (35-45) mm/Hg pO2 394 H (80-100) mm/Hg HCO3 23.3 (21-28) mmol/L ABG pH 7.32 L (7.35-7.45) ABG Total CO2 25.6 (22-28) mmol/L ABG O2 Saturation 99.7 H (95-98) % ABG Base Excess -2.1 L (-2.0-3.0) mmol/L ABG Hemoglobin 10.6 L (11.7-17.4) g/dL ABG Carboxyhemoglobin 1.2 (0.5-1.5) % POC ABG HHb (Measured) 0.3 (0.0-5.0) % ABG Methemoglobin 1.5 (0.0-3.0) % Stephen Test Pos A-a O2 Difference 260.0 mm/Hg Respiratory Index 0.7 Hgb O2 Saturation 97.0 (95.0-98.0) % Vent Mode Prvc Mechanical Rate 15 FiO2 100.0 % Tidal Volume 400 PEEP 5 Sodium (132-148) mmol/L Potassium (3.6-5.2) mmol/L Chloride (98-107) mmol/L Carbon Dioxide (22-30) mmol/L Anion Gap (10-20) BUN (7-17) mg/dL Creatinine (0.7-1.2) mg/dL Est GFR ( Amer) Est GFR (Non-Af Amer) Random Glucose (65-105) mg/dL Calcium (8.6-10.4) mg/dl Phosphorus (2.5-4.5) mg/dL Magnesium (1.6-2.3) mg/dL Total Bilirubin (0.2-1.3) mg/dL AST (14-36) U/L ALT (9-52) U/L Alkaline Phosphatase (38-126) U/L Total Protein (6.3-8.3) g/dL Albumin (3.5-5.0) g/dL Globulin (2.2-3.9) gm/dL Albumin/Globulin Ratio (1.0-2.1) Random Vancomycin ug/mL Laboratory Results - last 24 hr 09/21/17 09/21/17 09/21/17 05:15 06:17 06:17 WBC 18.4 H RBC 3.98 Hgb 11.6 Hct 35.8 MCV 89.9 MCH 29.1 MCHC 32.4 L RDW 15.2 H Plt Count 371 MPV 9.5 Neut % (Auto) 80.6 H Lymph % (Auto) 10.6 L [place] % (Auto) 5.8 Eos % (Auto) 2.3 Baso % (Auto) 0.7 Neut # 14.8 H Lymph # 1.9 [place] # 1.1 H Eos # 0.4 Baso # 0.1 Puncture Site Lr pCO2 47 H pO2 394 H HCO3 23.3 ABG pH 7.32 L ABG Total CO2 25.6 ABG O2 Saturation 99.7 H ABG Base Excess -2.1 L ABG Hemoglobin 10.6 L ABG Carboxyhemoglobin 1.2 POC ABG HHb (Measured) 0.3 ABG Methemoglobin 1.5 Stephen Test Pos A-a O2 Difference 260.0 Respiratory Index 0.7 Hgb O2 Saturation 97.0 Vent Mode Prvc Mechanical Rate 15 FiO2 100.0 Tidal Volume 400 PEEP 5 Sodium 133 Potassium 4.3 Chloride 98 Carbon Dioxide 28 Anion Gap 11 BUN 3 L Creatinine 0.3 L Est GFR ( Amer) > 60 Est GFR (Non-Af Amer) > 60 Random Glucose 107 H Calcium 10.3 Phosphorus 4.4 Magnesium 1.8 Total Bilirubin 1.2 AST 18 ALT 27 Alkaline Phosphatase 134 H Total Protein 7.8 Albumin 3.3 L Globulin 4.5 H Albumin/Globulin Ratio 0.7 L Random Vancomycin 09/21/17 12:33 WBC RBC Hgb Hct MCV MCH MCHC RDW Plt Count MPV Neut % (Auto) Lymph % (Auto) [place] % (Auto) Eos % (Auto) Baso % (Auto) Neut # Lymph # [place] # Eos # Baso # Puncture Site pCO2 pO2 HCO3 ABG pH ABG Total CO2 ABG O2 Saturation ABG Base Excess ABG Hemoglobin ABG Carboxyhemoglobin POC ABG HHb (Measured) ABG Methemoglobin Stephen Test A-a O2 Difference Respiratory Index Hgb O2 Saturation Vent Mode Mechanical Rate FiO2 [place]idal Volume PEEP Sodium Potassium Chloride Carbon Dioxide Anion Gap BUN Creatinine Est GFR ( Amer) Est GFR (Non-Af Amer) Random Glucose Calcium Phosphorus Magnesium Total Bilirubin AST ALT Alkaline Phosphatase Total Protein Albumin Globulin Albumin/Globulin Ratio Random Vancomycin 10.33 EKG/Cardiology Studies: Cardiology / EKG Studies 09/20/17 17:49 EKG [ELECTROCARDIOGRAM] Stat Comment: Mode Of Transportation: Reason For Exam: SINUS TACH Isolation: Contact Critical Care Progress Note - Nutrition Nutrition: Nutrition Category Date Time Status NPO Diet [DIET] Diets 09/18/17 Breakfast Active
--- NOTE | 2017-09-21 18:28 | CP.PCM.PN ---
Subjective - Date & Time of Evaluation Date of Evaluation: 09/21/17 Time of Evaluation: 09:00 - Subjective Subjective: events noted cont IV antibiotics Objective - Vital Signs/Intake and Output Vital Signs (last 24 hours): Temp Pulse Resp BP Pulse Ox 99.5 F 125 H 23 101/84 79 L 09/21/17 16:00 09/21/17 18:00 09/21/17 18:00 09/21/17 17:57 09/21/17 18:00 Intake and Output: 09/21/17 09/21/17 06:59 18:59 Intake Total 1177.2 2147 Output Total 830 1335 Balance 347.2 812 - Medications Medications: Current Medications Acetaminophen (Tylenol 650mg/20.3ml Solution Ud) 650 mg NG Q6 PRN PRN Reason: Temperature Last Admin: 09/21/17 07:17 Dose: 650 mg Artificial Tears (Lacri-Lube) 1 gm OS Q6H PRN PRN Reason: Sedation Last Admin: 09/06/17 20:10 Dose: 1 gm Diltiazem HCl (Cardizem) 30 mg PO QID [facility] Last Admin: 09/21/17 17:14 Dose: 30 mg Famotidine (Pepcid) 20 mg IVP Q12 [facility] Last Admin: 09/21/17 10:48 Dose: 20 mg Heparin Sodium (Porcine) (Heparin) 5,000 units SC Q12 [facility] Last Admin: 09/21/17 10:28 Dose: 5,000 units Levetiracetam 1,000 mg/ (Dextrose) 110 mls @ 440 mls/hr IVPB Q12H [facility] Last Admin: 09/21/17 17:13 Dose: 440 mls/hr Fluconazole (Diflucan Iv 200 Mg/100 Ml Ns) 100 mls @ 100 mls/hr IVPB DAILY [facility] Last Admin: 09/21/17 10:18 Dose: 100 mls/hr Diltiazem HCl 125 mg/ Dextrose 125 mls @ 5 mls/hr IV .Q24H [facility]; 5 MG/HR PRN Reason: Protocol Last Admin: 09/21/17 15:06 Dose: Not Given Propofol (Diprivan) 1,000 mg in 100 mls @ 4.998 mls/hr IV .Q20H1M PRN; Protocol ; 12.4 MCG/KG/MIN PRN Reason: TITRATE PER MD ORDER Last Admin: 09/21/17 07:19 Dose: 20 mcg/kg/min, 8.061 mls/hr Vancomycin/Sodium Chloride (Vancomycin 1 Gm/Ns 200 Ml) 1 gm in 200 mls @ 133.333 mls/hr IVPB Q12H [facility] Stop: 09/24/17 01:01 Last Admin: 09/21/17 14:29 Dose: 133.333 mls/hr Phenylephrine HCl 30 mg/ (Dextrose) 253 mls @ 10.12 mls/hr IV .Q24H PRN; Protocol; 20 MCG/MIN PRN Reason: TITRATE PER MD ORDER Last Titration: 09/21/17 05:40 Dose: 0 mcg/min, 0 mls/hr Sodium Chloride (Sodium Chloride 0.9%) 1,000 mls @ 75 mls/hr IV .[id number] [facility] Last Admin: 09/21/17 10:53 Dose: 75 mls/hr Lorazepam (Ativan) 2 mg IVP Q6H PRN PRN Reason: Agitation Last Admin: 09/21/17 13:18 Dose: 2 mg Metoprolol Tartrate (Lopressor) 25 mg PO Q8H [facility] Last Admin: 09/21/17 14:24 Dose: Not Given Potassium Chloride (Potassium Chloride Oral Soln) 20 meq PO DAILY [facility] Last Admin: 09/21/17 10:31 Dose: 20 meq Scopolamine (Transderm-Scop) 1 patch TD Q3D [facility] Last Admin: 09/20/17 21:18 Dose: 1 patch Thiamine HCl (Vitamin B1 Inj) 100 mg IV DAILY [facility] Last Admin: 09/21/17 10:32 Dose: 100 mg - Labs Labs: 09/21/17 06:17 09/21/17 06:17 PT 16.9 SECONDS (9.7-12.2) H 09/18/17 14:01 INR 1.5 09/18/17 14:01 APTT 33 SECONDS (21-34) 09/18/17 14:01 Assessment and Plan (1) Anemia Status: Acute (2) Anoxic encephalopathy Status: Acute (3) Cardiac arrest Status: Acute (4) Hypokalemia Status: Acute (5) Alcohol abuse Status: Acute (6) Chest pain Status: Acute
--- NOTE | 2017-09-22 01:01 | PN ---
DATE: 09/21/2017 SUBJECTIVE: The patient was seen and examined at bedside. Events from last night noted. The patient had subcutaneous emphysema and was hypotensive. Transiently, the patient was started on pressors, which were discontinued this morning, and the patient was put on 100% FiO2, decreased to 50% this morning. Remains orally intubated. PHYSICAL EXAMINATION: VITAL SIGNS: Blood pressure 116/73, pulse 121, respirations 23, on 50% FiO2, 400 tidal volume, respiratory rate of 15, and PEEP of 5. Intake is 2702, output is 2815. HEENT: Pupils sluggishly reacting to light. No icterus. Positive pallor. Gastric tube and ET tube in the oral cavity. NECK: Supple. LUNGS: Bilateral vesicular breath sounds. Bilateral basilar crackles. CARDIOVASCULAR SYSTEM: S1 and S2 present. Tachycardic. ABDOMEN: Soft, nontender. CENTRAL NERVOUS SYSTEM: Unresponsive. Not responding to the painful stimuli. Not moving any of the extremities. EXTREMITIES: No edema. SKIN: Subcutaneous emphysema of the face and the neck improving. LABORATORY DATA: Labs from this morning: WBC 18.4, hemoglobin 11.6, hematocrit 35.8, platelets 371. Sodium 133, potassium 4.3, chloride 98, bicarb 28, BUN 3, creatinine 0.3, glucose 107, calcium 10.3, phosphorus 4.4, magnesium 1.8, total bilirubin 1.2, AST 18, ALT 27, alkaline phosphatase 134, total protein 7.8, albumin 3.3. Random vancomycin 10.33. ABG on 100% FiO2, pH 7.32, pCO2 of 47, pO2 of 394, O2 sat is 99.7%. Chest x-ray: . MEDICATIONS: Include Tylenol as needed, Cardizem 5 mg per hour, Diflucan 200 mg IV daily, Cardizem 30 mg p.o. q.i.d., Pepcid 20 mg IV q. 12 hours, heparin 5000 units subcutaneous q. 12 hours, Keppra 1 g IV q. 12 hours, Ativan 2 mg IV q. 6 p.r.n., metoprolol 25 mg q. 8 hours, KCl 20 mEq p.o. daily, thiamine 100 mg daily, vancomycin 1 g IV q. 8 hours. 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 The patient was re-intubated orally, now with resolving subcutaneous emphysema, tachycardia status post pressors, now off of pressors, off of sedatives. Neurologic status remains the same. Continue with ventilator support. Maintain O2 saturations more than 90. Continue with gastrointestinal and deep venous thrombosis prophylaxis. Continue with current antibiotics as per Infectious Diseases. Discussed with Surgery at length, who recommends only endotracheal tube placement for ventilator support as the patient developed fistula and subcutaneous emphysema. Surgery is under the impression that the patient may not be a candidate for repeat tracheostomy and tracheal collar because of the esophageal fistula, unable to place the gastrostomy tube because of the complications. Discussed with Palliative Care management, who contacted the patient's family and making arrangements for possible family meeting over the weekend to decide on the patient's continuation of care. At this point, I believe that any further continuation of aggressive care would be futile in this very critical patient. Prognosis is very guarded. Awaiting for family meeting. We will discuss with the patient's family extensively and continue with current aggressive management as per family's wishes. Phoenix Caballero MD
[2017-09-22] MEDS: Propofol 10 mg/ml 1,000 MG/100 ML VIAL IV PRN ×3 (02:08→18:23)
[2017-09-22 05:46] LABS: ABG ALLEN TEST POS; ABG MECHANICAL RATE 15; ARTERIAL BLOOD GAS MODE PRVC; ARTERIAL BLOOD HGB O2 SAT 96.5 % (95.0-98.0); ATERIAL BLOOD GAS PEEP 5; DRAW SITE R R; HHB 0.2 % (0.0-5.0); METHEMOGLOBIN 1.3 % (0.0-3.0)
[2017-09-22 06:41] LABS: BASO # 0.1 K/uL (0.0-0.2); BASO % 0.6 % (0.0-2.0); EOS # 0.3 K/uL (0.0-0.7); EOS % 1.5 % (0.0-4.0); HEMATOCRIT 33.8 % (34.0-47.0); LYMPH # 1.4 K/uL (1.0-4.3); LYMPH % 6.4 % (20.0-40.0); MEAN CELL VOLUME 89.4 fL (81.0-99.0); MEAN CORPUSCULAR HEMOGLOBIN 29.2 pg (27.0-31.0); MEAN CORPUSCULAR HGB CONC 32.7 g/dL (33.0-37.0); MEAN PLATELET VOLUME 9.1 fL (7.2-11.7); MONO # 1.1 K/uL (0.0-0.8); MONO % 5.1 % (0.0-10.0); NRBC % 0.3 % (0.0-2.0); PLATELET COUNT 320 K/uL (130-400); RED CELL DISTRIBUTION WIDTH 15.4 % (11.5-14.5); WHITE BLOOD COUNT 22.3 K/uL (4.8-10.8)
[2017-09-22 06:46] LABS: CHLORIDE 97 mmol/L (98-107); POTASSIUM 3.3 mmol/L (3.6-5.2); SODIUM 130 mmol/L (132-148)
[2017-09-22 06:48] LABS: GFR AFRICAN-AMERICAN > 60
[2017-09-22 06:49] LABS: ALB/GLOB RATIO 0.9 (1.0-2.1); ALKALINE PHOSPHATASE 130 U/L (38-126); ALT/SGPT 19 U/L (9-52); AST/SGOT 21 U/L (14-36); BILIRUBIN,TOTAL 1.2 mg/dL (0.2-1.3); CALCIUM 9.1 mg/dl (8.6-10.4); CARBON DIOXIDE 26 mmol/L (22-30); GLUCOSE,RANDOM 135 mg/dL (65-105); PHOSPHOROUS 3.3 mg/dL (2.5-4.5); TOTAL PROTEIN 5.7 g/dL (6.3-8.3)
[2017-09-22 06:50] LABS: MAGNESIUM 1.1 mg/dL (1.6-2.3)
[2017-09-22] MEDS: Vancomycin 1 gm/NS 200 ml 1 GM/200 ML BAG IVPB SCH ×3 (06:50→21:11)
[2017-09-22 06:56] LABS: BLOOD UREA NITROGEN 2 mg/dL (7-17)
[2017-09-22 08:51] LABS: EOSINOPHIL 2 % (0-4); NEUTROPHIL 80 % (50-75); TOTAL CELLS COUNTED 100
[2017-09-22 08:53] LABS: LARGE PLATELETS PRESENT
--- NOTE | 2017-09-22 09:03 | CP.PCM.PN ---
Subjective - Date & Time of Evaluation Date of Evaluation: 09/22/17 Time of Evaluation: 08:45 - Subjective Subjective: Progress note dictated #[id number] Objective - Vital Signs/Intake and Output Vital Signs (last 24 hours): Temp Pulse Resp BP Pulse Ox 98.6 F 102 H 25 H 99/69 L 100 09/22/17 04:00 09/22/17 06:27 09/22/17 06:27 09/22/17 06:27 09/22/17 06:27 Intake and Output: 09/22/17 09/22/17 06:59 18:59 Intake Total 1613.0 100 Output Total 600 Balance 1013.0 100 - Medications Medications: Current Medications Acetaminophen (Tylenol 650mg/20.3ml Solution Ud) 650 mg NG Q6 PRN PRN Reason: Temperature Last Admin: 09/21/17 07:17 Dose: 650 mg Artificial Tears (Lacri-Lube) 1 gm OS Q6H PRN PRN Reason: Sedation Last Admin: 09/06/17 20:10 Dose: 1 gm Diltiazem HCl (Cardizem) 30 mg PO QID [facility] Last Admin: 09/21/17 21:17 Dose: 30 mg Famotidine (Pepcid) 20 mg IVP Q12 [facility] Last Admin: 09/21/17 21:17 Dose: 20 mg Heparin Sodium (Porcine) (Heparin) 5,000 units SC Q12 [facility] Last Admin: 09/21/17 21:17 Dose: 5,000 units Levetiracetam 1,000 mg/ (Dextrose) 110 mls @ 440 mls/hr IVPB Q12H [facility] Last Admin: 09/22/17 04:59 Dose: 440 mls/hr Fluconazole (Diflucan Iv 200 Mg/100 Ml Ns) 100 mls @ 100 mls/hr IVPB DAILY [facility] Last Admin: 09/21/17 10:18 Dose: 100 mls/hr Propofol (Diprivan) 1,000 mg in 100 mls @ 4.998 mls/hr IV .Q20H1M PRN; Protocol ; 12.4 MCG/KG/MIN PRN Reason: TITRATE PER MD ORDER Last Admin: 09/22/17 07:25 Dose: 35 mcg/kg/min, 14.107 mls/hr Phenylephrine HCl 30 mg/ (Dextrose) 253 mls @ 10.12 mls/hr IV .Q24H PRN; Protocol; 20 MCG/MIN PRN Reason: TITRATE PER MD ORDER Last Titration: 09/21/17 05:40 Dose: 0 mcg/min, 0 mls/hr Sodium Chloride (Sodium Chloride 0.9%) 1,000 mls @ 75 mls/hr IV .[id number] [facility] Last Admin: 09/21/17 23:20 Dose: Not Given Vancomycin/Sodium Chloride (Vancomycin 1 Gm/Ns 200 Ml) 1 gm in 200 mls @ 133.333 mls/hr IVPB Q8H [facility] Stop: 09/26/17 21:01 Last Admin: 09/22/17 06:50 Dose: 133.333 mls/hr Diltiazem HCl 125 mg/ Dextrose 125 mls @ 15 mls/hr IV .Q8H20M PRN; 15 MG/HR PRN Reason: Protocol Lorazepam (Ativan) 2 mg IVP Q6H PRN PRN Reason: Agitation Last Admin: 09/21/17 13:18 Dose: 2 mg Metoprolol Tartrate (Lopressor) 25 mg PO Q8H [facility] Last Admin: 09/22/17 04:59 Dose: 25 mg Potassium Chloride (Potassium Chloride Oral Soln) 20 meq PO DAILY [facility] Last Admin: 09/21/17 10:31 Dose: 20 meq Scopolamine (Transderm-Scop) 1 patch TD Q3D [facility] Last Admin: 09/20/17 21:18 Dose: 1 patch Thiamine HCl (Vitamin B1 Inj) 100 mg IV DAILY [facility] Last Admin: 09/21/17 10:32 Dose: 100 mg - Labs Labs: 09/22/17 06:23 09/22/17 06:25 PT 16.9 SECONDS (9.7-12.2) H 09/18/17 14:01 INR 1.5 09/18/17 14:01 APTT 33 SECONDS (21-34) 09/18/17 14:01
--- NOTE | 2017-09-22 09:07 | RAD ---
HISTORY: intubated COMPARISON: 09/20/2017 FINDINGS: Endotracheal tube terminates 2.9 cm proximal to the julieth. The nasogastric tube terminates in the stomach. The right IJV line terminates in the right atrium. LUNGS: There is interval improved aeration in both lungs with mild residual pulmonary venous congestion. PLEURA: No significant pleural effusion identified, no pneumothorax apparent. CARDIOVASCULAR: Normal. OSSEOUS STRUCTURES: No significant abnormalities. VISUALIZED UPPER ABDOMEN: Normal. OTHER FINDINGS: There is interval significant improvement in subcutaneous emphysema in the lower neck with minimal residual subcutaneous emphysema in the left lower neck. IMPRESSION: Stable position of line and tubes. Interval significant improved aeration in both lungs.
[2017-09-22] MEDS: Magnesium Sulfate 1 gm in D5W 1 GM/100 ML BAG IVPB SCH ×4 (09:41→11:15)
[2017-09-22] MEDS ORDERED: Meropenem 1 GM in Sodium Chloride 0.9% 100 ML IVPB ONE (09:45)
[2017-09-22] MEDS ORDERED: Meropenem 1 GM in Dextrose 5% In Water 100 ML IVPB ONE (09:45)
[2017-09-22] MEDS ORDERED: Sodium Chloride 0.9% 1,000 ML IV SCH (09:50)
--- NOTE | 2017-09-22 10:46 | PN ---
DATE: 09/22/2017 SUBJECTIVE: The patient is seen and examined at bedside. The patient's condition remains the same, remains orally intubated, unresponsive, sedated, and intermittent involuntary movements of the eyelids. PHYSICAL EXAMINATION: VITAL SIGNS: Blood pressure 99/69, pulse 102, respirations 25, on 50% FiO2, tidal volume 400, respiratory rate of 15, PEEP of 5, and set rate of 15. Intake is 3877 and output is 1935. Temperature 98.6 degrees Fahrenheit, T-Max is 100.5. HEENT: Pupils sluggishly reacting to light. No icterus. ET tube and gastric tube in the oral cavity. NECK: Supple. LUNGS: Bilateral vesicular breath sounds. Bilateral basilar crackles. CARDIOVASCULAR: S1 and S2 present. Tachycardic. ABDOMEN: Soft and nontender. CENTRAL NERVOUS SYSTEM: Sedated, unresponsive to deep painful stimuli, not moving any extremities with involuntary movements of the eyelids and upper and lower extremities intermittently. EXTREMITIES: No edema. Palpable peripheral pulses. MEDICATIONS: Include Tylenol, artificial tears, Cardizem 30 mg p.o. q.i.d., Cardizem drip 5 mg/hour, Pepcid 20 mg IV push q.12 hours, Diflucan 200 mg IV daily, heparin 5000 units subcutaneously q.12 hours, Keppra 1 g q.12 hours, Ativan 2 mg IV push q.6 hours p.r.n., Lopressor 25 mg p.o. q.8 hours, KCl 20 mEq p.o. daily, propofol drip, normal saline at 75 mL an hour, thiamine 100 mg IV daily, and vancomycin 1 g IV q.8 hours. LABORATORY DATA: Labs from this morning: WBC 22.3, hemoglobin 11.1, hematocrit 33.8, and platelets 320. ABG on 50% FiO2, pH of 7.49, pCO2 of 37, pO2 of 160, and saturation is 99.8%. Sodium 130, potassium 3.3, chloride 97, bicarb 26, BUN 2, creatinine 0.2, glucose 135, calcium 9.1, phosphorus 3.3, magnesium 1.1, total bilirubin 1.2, AST 21, ALT 19, alkaline phosphatase 130, total protein 5.7, and albumin 2.7. Vancomycin trough is 10.4. Repeat sputum cultures from 09/19/2017 is growing MRSA. ASSESSMENT AND PLAN: Young female with history of ethanol abuse, substance abuse, chronic back problems, status post multiple surgeries, status post multiple admissions to [facility], wheelchair bound, admitted status post cardiac arrest, ventilator-dependent respiratory failure, status post tracheostomy and status post subcutaneous emphysema and re-intubated orally, anoxic encephalopathy, sinus tachycardia, sepsis, anemia, status post multiple blood transfusions, multiple electrolyte abnormalities, persistent hypokalemia, and hypomagnesemia. The patient's neurologic status remains the same. Continue with ventilator support, keep SAO2 more than 90%. Replace electrolyte. H and H remains stable after the blood transfusion, continue with current antibiotics, repeat cultures, and followup chest x-ray results. Continue GI and DVT prophylaxis. We will replace potassium and magnesium. Awaiting for the family's decision regarding DNR and terminal extubation. I will follow up with palliative care RN and ICU attending. The patient's condition is critical and prognosis is guarded. Phoenix Caballero MD
[2017-09-22] MEDS: Fluconazole IV 200mg/100 ml NS 100 ML IVPB SCH (10:52)
[2017-09-22] MEDS: Thiamine 100 mg/ml Inj IV SCH (10:55)
[2017-09-22] MEDS: Potassium Chloride 20 mEq/15 ml LIQ UD PO SCH ×3 (12:09→19:43)
[2017-09-22] MEDS: Sodium Chloride 0.9% 1,000 ML IV SCH (14:00)
--- NOTE | 2017-09-22 15:47 | CP.CCUPN ---
CCU Subjective - Physician Review Subjective (Free Text): Patient with dx of sepsis 2nd left lower lobar pnemonia and pneumomediastinum -s/p removal of trach and placement of ET tube bypassing the trach site. -neck swelling significantly improved -tachycardia 2nd liekly pneumomediastinum -continue abx f/u sputum culture -Neurological status very poor, off sedation -Patient is severely malnurished, today residual were significant and tube feeds were held CCU Objective - Vital Signs / Intake & Output Vital Signs (Last 4 hours): Vital Signs Temp Pulse Resp BP Pulse Ox 09/22/17 14:27 104 H 21 133/105 H 95 09/22/17 14:00 103 H 17 100 09/22/17 13:57 103 H 21 61/38 L 100 09/22/17 13:27 99 H 18 91/70 L 100 09/22/17 13:00 100 H 22 100 09/22/17 12:57 100 H 22 86/61 L 100 09/22/17 12:27 99 H 25 H 187/147 H 100 09/22/17 12:10 176/140 H 09/22/17 12:00 97.5 F L 98 H 24 176/100 H 100 09/22/17 11:57 98 H 22 176/140 H 100 Intake and Output (Last 8hrs): Intake & Output 09/22/17 09/22/17 09/22/17 06:59 14:59 22:59 Intake Total 1181.2 1524.6 Output Total 480 575 Balance 701.2 949.6 Intake: IV 55.4 125 Intake, IV Amount 905.8 1239.6 Right Distal Port 110.8 84.6 Internal Jugular Right Forearm 195 105 Right Proximal Port 600 650 Internal Jugular left hand 400 Tube Feeding 160 60 Other 60 100 Output: Urine 480 575 Urethral (Andino) 480 575 Other: # Bowel Movements 250 - Physical Exam Physical Exam Limitations: Positive for: Altered Mental Status Head: Positive for: Atraumatic, Normocephalic Pupils: Positive for: Sluggish Extroacular Muscles: Negative for: EOMI Mouth: Positive for: Moist Mucous Membranes Respiratory/Chest: Positive for: Good Air Exchange, Rhonchi, Other ( subcutaneous emphysema ) Cardiovascular: Positive for: Normal S1, S2, Tachycardic Abdomen: Positive for: Distention, Normal Bowel Sounds. Negative for: Tenderness Upper Extremity: Negative for: Edema Lower Extremity: Negative for: Edema Neurological: Negative for: GCS=15, CN II-XII Intact, Speech Normal Skin: Positive for: Normal Color Psychiatric: Negative for: Alert, Oriented x 3 - Medications Active Medications: Active Medications Generic Name Dose Route Start Last Admin Trade Name Freq PRN Reason Stop Dose Admin Acetaminophen 650 mg 09/15/17 03:51 09/21/17 07:17 Tylenol 650mg/20.3ml Solution Ud NG 650 mg Q6 PRN Administration Temperature Artificial Tears 1 gm 08/31/17 12:00 09/06/17 20:10 Lacri-Lube OS 1 gm Q6H PRN Administration Sedation Diltiazem HCl 30 mg 09/21/17 10:00 09/22/17 13:25 Cardizem PO 30 mg QID EUSEBIO Administration Famotidine 20 mg 09/21/17 10:45 09/22/17 10:54 Pepcid IVP 20 mg Q12 EUSEBIO Administration Heparin Sodium (Porcine) 5,000 units 09/14/17 12:30 09/22/17 10:54 Heparin SC 5,000 units Q12 EUSEBIO Administration Levetiracetam 1,000 mg/ 110 mls @ 440 mls/hr 09/10/17 06:00 09/22/17 04:59 Dextrose IVPB 440 mls/hr Q12H EUSEBIO Administration Fluconazole 100 mls @ 100 mls/hr 09/17/17 10:30 09/22/17 10:52 Diflucan Iv 200 Mg/100 Ml Ns IVPB 100 mls/hr DAILY EUSEBIO Administration Propofol 1,000 mg in 100 mls @ 4.998 mls/hr 09/18/17 13:13 09/22/17 07:25 Diprivan IV 35 mcg/kg/min .Q20H1M PRN 14.107 mls/hr TITRATE PER MD ORDER Administration Protocol 12.4 MCG/KG/MIN Phenylephrine HCl 30 mg/ 253 mls @ 10.12 mls/hr 09/20/17 16:07 09/21/17 05:40 Dextrose IV 0 mcg/min .Q24H PRN 0 mls/hr TITRATE PER MD ORDER Titration Protocol 20 MCG/MIN Vancomycin/Sodium Chloride 1 gm in 200 mls @ 133.333 mls/hr 09/21/17 21:00 12:34 Vancomycin 1 Gm/Ns 200 Ml IVPB 09/26/17 21:01 133.333 mls/hr Q8H EUSEBIO Administration Diltiazem HCl 125 mg/ Dextrose 125 mls @ 15 mls/hr 09/22/17 08:45 09/22/17 12 :00 IV 10 mg/hr .Q8H20M PRN 10 mls/hr Protocol Titration 15 MG/HR Meropenem 1 gm/ Sodium 100 mls @ 100 mls/hr 09/22/17 22:00 Chloride IVPB Q8 EUSEBIO Sodium Chloride 1,000 mls @ 75 mls/hr 09/22/17 13:17 09/22/17 14:00 Sodium Chloride 0.9% IV 75 mls/hr .[id number] EUSEBIO Administration Lorazepam 2 mg 09/17/17 09:59 09/21/17 13:18 Ativan IVP 2 mg Q6H PRN Administration Agitation Metoprolol Tartrate 25 mg 09/13/17 13:00 09/22/17 12:10 Lopressor PO 25 mg Q8H EUSEBIO Administration Potassium Chloride 40 meq 09/22/17 12:00 09/22/17 15:35 Potassium Chloride Oral Soln PO 09/22/17 20:01 40 meq Q4 EUSEBIO Administration Scopolamine 1 patch 09/14/17 22:00 09/20/17 21:18 Transderm-Scop TD 1 patch Q3D EUSEBIO Administration Thiamine HCl 100 mg 08/30/17 22:15 09/22/17 10:55 Vitamin B1 Inj IV 100 mg DAILY EUSEBIO Administration - Patient Studies Lab Studies: Microbiology Studies 09/19/17 20:25 - Final Blood Transfusion Bag - Preliminary NO GROWTH AFTER 48 HOURS Lab Studies 09/22/17 09/22/17 09/22/17 Range/Units 14:30 11:40 06:25 WBC (4.8-10.8) K/uL RBC (3.80-5.20) Mil/uL Hgb (11.0-16.0) g/dL Hct (34.0-47.0) % MCV (81.0-99.0) fL MCH (27.0-31.0) pg MCHC (33.0-37.0) g/dL RDW (11.5-14.5) % Plt Count (130-400) K/uL MPV (7.2-11.7) fL Neut % (Auto) (50.0-75.0) % Lymph % (Auto) (20.0-40.0) % Robertson % (Auto) (0.0-10.0) % Eos % (Auto) (0.0-4.0) % Baso % (Auto) (0.0-2.0) % Neut # (1.8-7.0) K/uL Lymph # (1.0-4.3) K/uL Robertson # (0.0-0.8) K/uL Eos # (0.0-0.7) K/uL Baso # (0.0-0.2) K/uL Neutrophils % (Manual) (50-75) % Band Neutrophils % (0-2) % Lymphocytes % (Manual) (20-40) % Monocytes % (Manual) (0-10) % Eosinophils % (Manual) (0-4) % Toxic Granulation Platelet Estimate (NORMAL) Large Platelets Hypochromasia (manual) Anisocytosis (manual) Puncture Site pCO2 (35-45) mm/Hg pO2 (80-100) mm/Hg HCO3 (21-28) mmol/L ABG pH (7.35-7.45) ABG Total CO2 (22-28) mmol/L ABG O2 Saturation (95-98) % ABG Base Excess (-2.0-3.0) mmol/L ABG Hemoglobin (11.7-17.4) g/dL ABG Carboxyhemoglobin (0.5-1.5) % POC ABG HHb (Measured) (0.0-5.0) % ABG Methemoglobin (0.0-3.0) % Stephen Test A-a O2 Difference mm/Hg Respiratory Index Hgb O2 Saturation (95.0-98.0) % Vent Mode Mechanical Rate FiO2 % Tidal Volume PEEP Sodium (132-148) mmol/L Potassium (3.6-5.2) mmol/L Chloride (98-107) mmol/L Carbon Dioxide (22-30) mmol/L Anion Gap (10-20) BUN (7-17) mg/dL Creatinine (0.7-1.2) mg/dL Est GFR ( Amer) Est GFR (Non-Af Amer) POC Glucose (mg/dL) 114 H (65-110) mg/dL Random Glucose (65-105) mg/dL Calcium (8.6-10.4) mg/dl Phosphorus (2.5-4.5) mg/dL Magnesium (1.6-2.3) mg/dL Total Bilirubin (0.2-1.3) mg/dL AST (14-36) U/L ALT (9-52) U/L Alkaline Phosphatase (38-126) U/L Total Protein (6.3-8.3) g/dL Albumin (3.5-5.0) g/dL Globulin (2.2-3.9) gm/dL Albumin/Globulin Ratio (1.0-2.1) Vancomycin Trough 10.4 H (5.0-10.0) ug/mL C. difficile Ag & Toxin Negative (NEGATIVE) 09/22/17 09/22/17 09/22/17 Range/Units 06:25 06:23 05:21 WBC 22.3 H (4.8-10.8) K/uL RBC 3.78 L (3.80-5.20) Mil/uL Hgb 11.1 (11.0-16.0) g/dL Hct 33.8 L (34.0-47.0) % MCV 89.4 (81.0-99.0) fL MCH 29.2 (27.0-31.0) pg MCHC 32.7 L (33.0-37.0) g/dL RDW 15.4 H (11.5-14.5) % Plt Count 320 (130-400) K/uL MPV 9.1 (7.2-11.7) fL Neut % (Auto) 86.4 H (50.0-75.0) % Lymph % (Auto) 6.4 L (20.0-40.0) % Robertson % (Auto) 5.1 (0.0-10.0) % Eos % (Auto) 1.5 (0.0-4.0) % Baso % (Auto) 0.6 (0.0-2.0) % Neut # 19.3 H (1.8-7.0) K/uL Lymph # 1.4 (1.0-4.3) K/uL Robertson # 1.1 H (0.0-0.8) K/uL Eos # 0.3 (0.0-0.7) K/uL Baso # 0.1 (0.0-0.2) K/uL Neutrophils % (Manual) 80 H (50-75) % Band Neutrophils % 1 (0-2) % Lymphocytes % (Manual) 7 L (20-40) % Monocytes % (Manual) 10 (0-10) % Eosinophils % (Manual) 2 (0-4) % Toxic Granulation Present Platelet Estimate Normal (NORMAL) Large Platelets Present Hypochromasia (manual) Slight Anisocytosis (manual) Slight Puncture Site R r pCO2 37 (35-45) mm/Hg pO2 160 H (80-100) mm/Hg HCO3 28.6 H (21-28) mmol/L ABG pH 7.49 H (7.35-7.45) ABG Total CO2 29.3 H (22-28) mmol/L ABG O2 Saturation 99.8 H (95-98) % ABG Base Excess 4.7 H (-2.0-3.0) mmol/L ABG Hemoglobin 11.5 L (11.7-17.4) g/dL ABG Carboxyhemoglobin 2.0 H (0.5-1.5) % POC ABG HHb (Measured) 0.2 (0.0-5.0) % ABG Methemoglobin 1.3 (0.0-3.0) % Stephen Test Pos A-a O2 Difference 150.0 mm/Hg Respiratory Index 0.9 Hgb O2 Saturation 96.5 (95.0-98.0) % Vent Mode Prvc Mechanical Rate 15 FiO2 50.0 % Tidal Volume 400 PEEP 5 Sodium 130 L (132-148) mmol/L Potassium 3.3 L (3.6-5.2) mmol/L Chloride 97 L (98-107) mmol/L Carbon Dioxide 26 (22-30) mmol/L Anion Gap 10 (10-20) BUN 2 L (7-17) mg/dL Creatinine 0.2 L (0.7-1.2) mg/dL Est GFR ( Amer) > 60 Est GFR (Non-Af Amer) > 60 POC Glucose (mg/dL) (65-110) mg/dL Random Glucose 135 H (65-105) mg/dL Calcium 9.1 (8.6-10.4) mg/dl Phosphorus 3.3 (2.5-4.5) mg/dL Magnesium 1.1 L (1.6-2.3) mg/dL Total Bilirubin 1.2 (0.2-1.3) mg/dL AST 21 (14-36) U/L ALT 19 (9-52) U/L Alkaline Phosphatase 130 H (38-126) U/L Total Protein 5.7 L (6.3-8.3) g/dL Albumin 2.7 L (3.5-5.0) g/dL Globulin 3.0 (2.2-3.9) gm/dL Albumin/Globulin Ratio 0.9 L (1.0-2.1) Vancomycin Trough (5.0-10.0) ug/mL C. difficile Ag & Toxin (NEGATIVE) Laboratory Results - last 24 hr 09/22/17 09/22/17 09/22/17 05:21 06:23 06:25 WBC 22.3 H RBC 3.78 L Hgb 11.1 Hct 33.8 L MCV 89.4 MCH 29.2 MCHC 32.7 L RDW 15.4 H Plt Count 320 MPV 9.1 Neut % (Auto) 86.4 H Lymph % (Auto) 6.4 L Robertson % (Auto) 5.1 Eos % (Auto) 1.5 Baso % (Auto) 0.6 Neut # 19.3 H Lymph # 1.4 Robertson # 1.1 H Eos # 0.3 Baso # 0.1 Neutrophils % (Manual) 80 H Band Neutrophils % 1 Lymphocytes % (Manual) 7 L Monocytes % (Manual) 10 Eosinophils % (Manual) 2 Toxic Granulation Present Platelet Estimate Normal Large Platelets Present Hypochromasia (manual) Slight Anisocytosis (manual) Slight Puncture Site R r pCO2 37 pO2 160 H HCO3 28.6 H ABG pH 7.49 H ABG Total CO2 29.3 H ABG O2 Saturation 99.8 H ABG Base Excess 4.7 H ABG Hemoglobin 11.5 L ABG Carboxyhemoglobin 2.0 H POC ABG HHb (Measured) 0.2 ABG Methemoglobin 1.3 Stephen Test Pos A-a O2 Difference 150.0 Respiratory Index 0.9 Hgb O2 Saturation 96.5 Vent Mode Prvc Mechanical Rate 15 FiO2 50.0 Tidal Volume 400 PEEP 5 Sodium 130 L Potassium 3.3 L Chloride 97 L Carbon Dioxide 26 Anion Gap 10 BUN 2 L Creatinine 0.2 L Est GFR ( Amer) > 60 Est GFR (Non-Af Amer) > 60 POC Glucose (mg/dL) Random Glucose 135 H Calcium 9.1 Phosphorus 3.3 Magnesium 1.1 L Total Bilirubin 1.2 AST 21 ALT 19 Alkaline Phosphatase 130 H Total Protein 5.7 L Albumin 2.7 L Globulin 3.0 Albumin/Globulin Ratio 0.9 L Vancomycin Trough C. difficile Ag & Toxin 09/22/17 09/22/17 09/22/17 06:25 11:40 14:30 WBC RBC Hgb Hct MCV MCH MCHC RDW Plt Count MPV Neut % (Auto) Lymph % (Auto) Robertson % (Auto) Eos % (Auto) Baso % (Auto) Neut # Lymph # Robertson # Eos # Baso # Neutrophils % (Manual) Band Neutrophils % Lymphocytes % (Manual) Monocytes % (Manual) Eosinophils % (Manual) Toxic Granulation Platelet Estimate Large Platelets Hypochromasia (manual) Anisocytosis (manual) Puncture Site pCO2 pO2 HCO3 ABG pH ABG Total CO2 ABG O2 Saturation ABG Base Excess ABG Hemoglobin ABG Carboxyhemoglobin POC ABG HHb (Measured) ABG Methemoglobin Stephen Test A-a O2 Difference Respiratory Index Hgb O2 Saturation Vent Mode Mechanical Rate FiO2 Tidal Volume PEEP Sodium Potassium Chloride Carbon Dioxide Anion Gap BUN Creatinine Est GFR ( Amer) Est GFR (Non-Af Amer) POC Glucose (mg/dL) 114 H Random Glucose Calcium Phosphorus Magnesium Total Bilirubin AST ALT Alkaline Phosphatase Total Protein Albumin Globulin Albumin/Globulin Ratio Vancomycin Trough 10.4 H C. difficile Ag & Toxin Negative Fingerstick Blood Sugar Results: 123 Critical Care Progress Note - Ventilator Checklist Daily Sedation Vacation: Yes Daily Assessment of Readiness to Wean: Yes Daily Spontaneous Breathing Trial: Yes PUD Prophalyxis: Yes DVT Prophylaxis: Yes Oral Care with Chlorhexidine Gluconate {CHG}: Yes - Vent Settings MODE:: PRVC TIDAL VOLUME:: 400 RESP RATE:: 15 FIO2:: 50 PEEP:: 5 - Extremities/Vascular Does the Patient have a Central Venous Catheter?: Yes Insertion Site: Internal Jugular Vein Does the Patient need a Central Venous Catheter?: Yes Does the Patient have a Andino Catheter?: Yes - Prophylaxis GI Prophylaxis GI: PPI - Nutrition Nutrition: Nutrition Category Date Time Status NPO Diet [DIET] Diets 09/18/17 Breakfast Active Assessment/Plan - Assessment and Plan (Free Text) Assessment: 36 year old female with past medical history of anemia and alcohol abuse, who was found unconscious by . EMS was called and patient was found to be in Asystole, ACLS protocol was initiated and 2 rounds of epinephrine and then ROSC. Patient was unconscious in the ED. Subsequently, patient was admitted to the ICU. IN ICU patient had prolonged ICU course with tracheal placement with tracheal ventilator resulting in pneumomediastinum. Plan: -Neuro: Intubated, sedated, off sedation, no purposeful movement -f/u neuro Dr. Pugh, continue Keppra 500mg + propofol (titrate) SVT- tachycardia Management: Intubated Lopressor 25mg po q8h Cardizem drip started (09/17) Pulm: Respiratory distress secondary to cardiac arrest, POD#1 s/p trach Intubated sputum culture: staph D Dimer: [id number] CTA: no evidence of PE, bibasilar consolidation. Upper lobe interstitial infiltrates. tidal volume decreased to 400 on 09/[address] Dockery on 09/19 with TE fistula found Dr. Plaza consulted, help appreciated 09/20 CTA head and neck: extensive soft tissue air, including air in retropharyngeal space. deep soft tissue defect in the midline anterior neck soft tissues which extends from the skin surface to the anterior wall of the trachee. Cannot exclude tracheocutaneous fistula, secondary to a focal tracheal rupture or injury. This could be the cause of the soft tissue gas. An ET tube is in place. Extensive pneumomediastinum, left orbital emphysema, findings highly suspicious for diffuse left otomastoiditis. Dr. Dockery d/c trach on 09/21 and orally intubated with cuff placement distal to site of fistula GI: Diarrhea C. Dif negative (09/22) repeat C. dif (09/22) negative Dr. Hernandez consulted for PEG placement, because of TE fistula probably better to surgically placed G tube Dr. Skinner agrees that PEG cannot be done due to TE fistula, surgical PEG to be considered ileus, residual, tube feeds on hold Renal: Electrolyte imbalance, replace as possible Heme: anemia: monitor hb/hct, monitor for source of bleeding ID: MRSA sputum, given possible mediastinitits, will add broad spectrum abx jose , orr culture sputum, C. diff neg Prophylaxis measures: R IJ in place DVT: SCDs, Heparin 5,000 units SC Q12H GI: Protonix 40mg IV daily tube feeds: NPO Patient remains critical. -not on pressors -no enteral access for feeding, surgery input -poor neurological status -tachycardia 2nd pneumomediastinum -cc time 45 minutes GOC to be discussed with palliative and ethics committee
[2017-09-22] MEDS: Meropenem 1 GM in Dextrose 5% In Water 100 ML IVPB SCH (21:12)
--- NOTE | 2017-09-23 01:43 | OP ---
PROCEDURE DATE: 09/19/2017 PREOPERATIVE DIAGNOSES: 1. Ventilator-dependent respiratory failure. 2. Ventilator-related pneumonia. 3. Cardiac arrest with anoxic brain injury, GCS: 3 POSTOPERATIVE DIAGNOSES: 1. Chronic tracheoesophageal fistula, subglottic. 2. Ventilator-dependent respiratory failure. 3. Ventilator-related pneumonia. 4. Cardiac arrest with anoxic brain injury, GCS: 3. PROCEDURES: 1. Bronchoscopy without lavage. 2. Percutaneous tracheostomy converted to open tracheostomy. SURGEON: Dr. Dockery. EXTRUSION PRESS ADJUSTER: Carmina Toth FELT FINISHER and Adali Metcalf, PGY-2 resident. TYPE OF ANESTHESIA: General endotracheal tube anesthesia. Bronchoscopy initially was done by me as well as Dr. Calabrese. COMPLICATIONS: None. DRAINS: None. INTRAOPERATIVE FINDINGS: During the initial bronchoscopy, the patient found to have dilated trachea proximally in a subglottic region with posterolateral defect of approximately 2 x 1 cm size of possible tracheoesophageal fistula due to the necrosis of wall due to cuff compression of the ET tube. Intraoperative steps, this is a 36-year-old female who was admitted with cardiac arrest and the patient was diagnosed as possible brain with anoxic brain injury, GCS: 3 and the patient needed tracheostomy and possible PEG placement and the family was consented for the bronchoscopic-guided tracheostomy and PEG placement. The patient was brought to the OR, placed supine on the operating table, after induction of anesthesia, the first bronchoscopy was done by me, the patient had mild secretion in the lower part of trachea and the suction of secretion was done and now the endotracheal tube and the bronchoscope was withdrawn up to the proximal part of the tracheae by anesthesiologist and Patient was found to have dilated proximal tracheae in subglottic region with approximately 2 x 1 cm posterolateral defect of possible tracheoesophageal fistula was identified. Now under bronchoscopy guidance, the anterior wall of the trachea was punctured with guide wire and the gradual dilation of the tracheal wall was done and care was taken to avoid fistula opening. During all the attempts, the guidewire as well dilator was unable to turn the curve due to the enlarged thyroid and it was entering fistula opening, which was visualized by anesthesia and surgical team. Now, the decision was made to do the open tracheostomy and incision was extended and NG tube was placed into the trachea and the tracheostomy tube was guided into the NG tube, distal to the tracheoesophageal fistula and after that the wound was closed and the tracheostomy was sutured to the skin. There was a good enter of CO2. There was no leak and there was no subcutaneous emphysema and the OG tube was kept into the esophagus and the PEG tube procedure was not done due to identification of the chronic TE fistula in the subglottic region due to cuff compression of prolong intubation. The patient tolerated the procedure well. Count of the instrument and gauze was correct. There was no apparent complication. The patient was sent to the ICU for further care. Josef Dockery MD MTDD
[2017-09-23] MEDS: Sodium Chloride 0.9% 1,000 ML IV SCH ×2 (02:40→17:18)
[2017-09-23 04:22] LABS: BASO # 0.1 K/uL (0.0-0.2); BASO % 0.5 % (0.0-2.0); EOS # 0.4 K/uL (0.0-0.7); EOS % 2.1 % (0.0-4.0); LYMPH # 1.5 K/uL (1.0-4.3); LYMPH % 7.6 % (20.0-40.0); MEAN CELL VOLUME 89.3 fL (81.0-99.0); MEAN CORPUSCULAR HEMOGLOBIN 29.2 pg (27.0-31.0); MEAN CORPUSCULAR HGB CONC 32.7 g/dL (33.0-37.0); MEAN PLATELET VOLUME 8.7 fL (7.2-11.7); MONO # 1.1 K/uL (0.0-0.8); MONO % 5.8 % (0.0-10.0); PLATELET COUNT 295 K/uL (130-400); RED CELL DISTRIBUTION WIDTH 14.9 % (11.5-14.5); WHITE BLOOD COUNT 19.7 K/uL (4.8-10.8)
[2017-09-23 04:32] LABS: CHLORIDE 98 mmol/L (98-107); POTASSIUM 4.4 mmol/L (3.6-5.2); SODIUM 132 mmol/L (132-148)
[2017-09-23 04:34] LABS: AST/SGOT 19 U/L (14-36); BILIRUBIN,TOTAL 1.2 mg/dL (0.2-1.3); CARBON DIOXIDE 27 mmol/L (22-30); GFR AFRICAN-AMERICAN > 60
[2017-09-23 04:35] LABS: ALB/GLOB RATIO 0.7 (1.0-2.1); ALKALINE PHOSPHATASE 103 U/L (38-126); ALT/SGPT 31 U/L (9-52); CALCIUM 9.6 mg/dl (8.6-10.4); GLUCOSE,RANDOM 93 mg/dL (65-105); PHOSPHOROUS 3.2 mg/dL (2.5-4.5); TOTAL PROTEIN 6.5 g/dL (6.3-8.3)
[2017-09-23 04:36] LABS: MAGNESIUM 1.4 mg/dL (1.6-2.3)
[2017-09-23 04:43] LABS: BLOOD UREA NITROGEN 2 mg/dL (7-17)
[2017-09-23] MEDS: Vancomycin 1 gm/NS 200 ml 1 GM/200 ML BAG IVPB SCH ×4 (05:19→21:03)
[2017-09-23] MEDS: Meropenem 1 GM in Dextrose 5% In Water 100 ML IVPB SCH ×3 (05:22→21:47)
[2017-09-23 05:40] LABS: ABG ALLEN TEST POS; ABG MECHANICAL RATE 15; ARTERIAL BLOOD GAS MODE PRVC; ARTERIAL BLOOD HGB O2 SAT 96.1 % (95.0-98.0); ATERIAL BLOOD GAS PEEP 5; DRAW SITE LR; HHB 0.5 % (0.0-5.0); METHEMOGLOBIN 1.4 % (0.0-3.0)
[2017-09-23] MEDS: Magnesium Sulfate 1 gm in D5W 1 GM/100 ML BAG IVPB SCH ×2 (06:14→06:58)
[2017-09-23 06:30] LABS: EOSINOPHIL 1 % (0-4); METAMYELOCYTE 1 % (0-0); NEUTROPHIL 83 % (50-75); REACTIVE LYMPHOCYTES 2 % (0-0); TOTAL CELLS COUNTED 100
[2017-09-23] MEDS: Propofol 10 mg/ml 1,000 MG/100 ML VIAL IV PRN ×2 (07:37→18:15)
[2017-09-23] MEDS: Thiamine 100 mg/ml Inj IV SCH (09:39)
[2017-09-23] MEDS: Fluconazole IV 200mg/100 ml NS 100 ML IVPB SCH (09:41)
--- NOTE | 2017-09-23 13:53 | CP.PCM.PN ---
Subjective - Date & Time of Evaluation Date of Evaluation: 09/23/17 Time of Evaluation: 13:45 - Subjective Subjective: Patient unresponsive, fever, episodes of tachycardia, persistent gastric residual. Objective - Vital Signs/Intake and Output Vital Signs (last 24 hours): Temp Pulse Resp BP Pulse Ox 99.2 F 143 H 25 H 97/62 L 100 09/23/17 04:00 09/23/17 12:00 09/23/17 12:00 09/23/17 11:09 09/23/17 12:00 Intake and Output: 09/23/17 09/23/17 06:59 18:59 Intake Total 1686 1316 Output Total 525 955 Balance 1161 361 - Medications Medications: Current Medications Acetaminophen (Tylenol 650mg/20.3ml Solution Ud) 650 mg NG Q6 PRN PRN Reason: Temperature Last Admin: 09/21/17 07:17 Dose: 650 mg Artificial Tears (Lacri-Lube) 1 gm OS Q6H PRN PRN Reason: Sedation Last Admin: 09/06/17 20:10 Dose: 1 gm Diltiazem HCl (Cardizem) 30 mg PO QID [facility] Last Admin: 09/23/17 09:41 Dose: 30 mg Famotidine (Pepcid) 20 mg IVP Q12 [facility] Last Admin: 09/23/17 09:40 Dose: 20 mg Heparin Sodium (Porcine) (Heparin) 5,000 units SC Q12 [facility] Last Admin: 09/23/17 09:40 Dose: 5,000 units Levetiracetam 1,000 mg/ (Dextrose) 110 mls @ 440 mls/hr IVPB Q12H [facility] Last Admin: 09/23/17 05:22 Dose: 440 mls/hr Fluconazole (Diflucan Iv 200 Mg/100 Ml Ns) 100 mls @ 100 mls/hr IVPB DAILY [facility] Last Admin: 09/23/17 09:41 Dose: 100 mls/hr Propofol (Diprivan) 1,000 mg in 100 mls @ 4.998 mls/hr IV .Q20H1M PRN; Protocol ; 12.4 MCG/KG/MIN PRN Reason: TITRATE PER MD ORDER Last Admin: 09/23/17 07:37 Dose: 20 mcg/kg/min, 8.061 mls/hr Vancomycin/Sodium Chloride (Vancomycin 1 Gm/Ns 200 Ml) 1 gm in 200 mls @ 133.333 mls/hr IVPB Q8H [facility] Stop: 09/26/17 21:01 Last Admin: 09/23/17 13:01 Dose: 133.333 mls/hr Diltiazem HCl 125 mg/ Dextrose 125 mls @ 15 mls/hr IV .Q8H20M PRN; 15 MG/HR PRN Reason: Protocol Last Admin: 09/22/17 18:48 Dose: 10 mg/hr, 10 mls/hr Meropenem 1 gm/ Dextrose 100 mls @ 100 mls/hr IVPB Q8 [facility] Last Admin: 09/23/17 05:22 Dose: 100 mls/hr Sodium Chloride (Sodium Chloride 0.9%) 1,000 mls @ 75 mls/hr IV .[id number] [facility] Last Admin: 09/23/17 02:40 Dose: Not Given Lorazepam (Ativan) 2 mg IVP Q6H PRN PRN Reason: Agitation Last Admin: 09/21/17 13:18 Dose: 2 mg Metoprolol Tartrate (Lopressor) 25 mg PO Q8H [facility] Last Admin: 09/23/17 05:19 Dose: Not Given Scopolamine (Transderm-Scop) 1 patch TD Q3D [facility] Last Admin: 09/20/17 21:18 Dose: 1 patch Thiamine HCl (Vitamin B1 Inj) 100 mg IV DAILY [facility] Last Admin: 09/23/17 09:39 Dose: 100 mg - Labs Labs: 09/23/17 04:18 09/23/17 04:18 PT 16.9 SECONDS (9.7-12.2) H 09/18/17 14:01 INR 1.5 09/18/17 14:01 APTT 33 SECONDS (21-34) 09/18/17 14:01 - Additional Findings Additional findings: * HEENT no pupilary response, no corneal response, orally intubated * Neck dressing over trache site * Chest Air entry b/l * CVS tachycardia in 130's regular * PA soft, mild distension * Ext no edema * Skin normal turgor * 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 Assessment and Plan - Assessment and Plan (Free Text) Assessment: * Anoxic brain damage * S/p trache complicated with pneumomediastinum, now intubated orally, traceo- esophageal fistula documented noticed during trace surg from ET cuff pressure * LLL pna * H/o alcoholism * H/o chronic pancreatitis * Residual fluid 350 ml today suggesting ileus vs obstruction * Patient's daughter although 19 is too young to discuss patient care, patient' s mother is reluctant to come to hospital to discuss * Poor prognosis with severe anoxia without any significant recovery with secondary morbidities and complications as above. Plan: * Supportive care * Broad spectrum abx * CT abd/pelvis, chest for f/u of pneumomediastinum, ileus * GI/DVT prophylaxis * Replace electrolytes * See orders for detail.
[2017-09-23] MEDS ORDERED: Iodixanol 320 MG/ML 200 ML BOTTLE IV ONE (16:12)
--- NOTE | 2017-09-23 16:24 | CP.PCM.PN ---
Subjective - Date & Time of Evaluation Date of Evaluation: 09/23/17 Time of Evaluation: 08:00 - Subjective Subjective: fever persists remains unresponsive cont iv rx grave prognosis from the outset Objective - Vital Signs/Intake and Output Vital Signs (last 24 hours): Temp Pulse Resp BP Pulse Ox 96.5 F L 106 H 23 131/58 L 100 09/23/17 15:42 09/23/17 15:10 09/23/17 15:10 09/23/17 15:10 09/23/17 15:10 Intake and Output: 09/23/17 09/23/17 06:59 18:59 Intake Total 1686 1492 Output Total 525 1045 Balance 1161 447 - Medications Medications: Current Medications Acetaminophen (Tylenol 650mg/20.3ml Solution Ud) 650 mg NG Q6 PRN PRN Reason: Temperature Last Admin: 09/21/17 07:17 Dose: 650 mg Artificial Tears (Lacri-Lube) 1 gm OS Q6H PRN PRN Reason: Sedation Last Admin: 09/06/17 20:10 Dose: 1 gm Diltiazem HCl (Cardizem) 30 mg PO QID [facility] Last Admin: 09/23/17 09:41 Dose: 30 mg Famotidine (Pepcid) 20 mg IVP Q12 [facility] Last Admin: 09/23/17 09:40 Dose: 20 mg Heparin Sodium (Porcine) (Heparin) 5,000 units SC Q12 [facility] Last Admin: 09/23/17 09:40 Dose: 5,000 units Levetiracetam 1,000 mg/ (Dextrose) 110 mls @ 440 mls/hr IVPB Q12H [facility] Last Admin: 09/23/17 05:22 Dose: 440 mls/hr Fluconazole (Diflucan Iv 200 Mg/100 Ml Ns) 100 mls @ 100 mls/hr IVPB DAILY [facility] Last Admin: 09/23/17 09:41 Dose: 100 mls/hr Propofol (Diprivan) 1,000 mg in 100 mls @ 4.998 mls/hr IV .Q20H1M PRN; Protocol ; 12.4 MCG/KG/MIN PRN Reason: TITRATE PER MD ORDER Last Admin: 09/23/17 07:37 Dose: 20 mcg/kg/min, 8.061 mls/hr Vancomycin/Sodium Chloride (Vancomycin 1 Gm/Ns 200 Ml) 1 gm in 200 mls @ 133.333 mls/hr IVPB Q8H [facility] Stop: 09/26/17 21:01 Last Admin: 09/23/17 13:01 Dose: 133.333 mls/hr Diltiazem HCl 125 mg/ Dextrose 125 mls @ 15 mls/hr IV .Q8H20M PRN; 15 MG/HR PRN Reason: Protocol Last Admin: 09/22/17 18:48 Dose: 10 mg/hr, 10 mls/hr Meropenem 1 gm/ Dextrose 100 mls @ 100 mls/hr IVPB Q8 [facility] Last Admin: 09/23/17 14:21 Dose: 100 mls/hr Sodium Chloride (Sodium Chloride 0.9%) 1,000 mls @ 75 mls/hr IV .[id number] [facility] Last Admin: 09/23/17 02:40 Dose: Not Given Lorazepam (Ativan) 2 mg IVP Q6H PRN PRN Reason: Agitation Last Admin: 09/21/17 13:18 Dose: 2 mg Metoprolol Tartrate (Lopressor) 25 mg PO Q8H [facility] Last Admin: 09/23/17 14:25 Dose: 25 mg Scopolamine (Transderm-Scop) 1 patch TD Q3D [facility] Last Admin: 09/20/17 21:18 Dose: 1 patch Thiamine HCl (Vitamin B1 Inj) 100 mg IV DAILY [facility] Last Admin: 09/23/17 09:39 Dose: 100 mg - Labs Labs: 09/23/17 04:18 09/23/17 04:18 PT 16.9 SECONDS (9.7-12.2) H 09/18/17 14:01 INR 1.5 09/18/17 14:01 APTT 33 SECONDS (21-34) 09/18/17 14:01 - Constitutional Appears: Confused - Head Exam Head Exam: NORMOCEPHALIC - Eye Exam Eye Exam: absent: Scleral icterus - ENT Exam ENT Exam: Mucous Membranes Dry - Neck Exam Neck Exam: absent: Lymphadenopathy - Respiratory Exam Respiratory Exam: Decreased Breath Sounds - Cardiovascular Exam Cardiovascular Exam: REGULAR RHYTHM - GI/Abdominal Exam GI & Abdominal Exam: Distended Assessment and Plan (1) Anemia Status: Acute (2) Anoxic encephalopathy Status: Acute (3) Cardiac arrest Status: Acute (4) Hypokalemia Status: Acute (5) Alcohol abuse Status: Acute (6) Chest pain Status: Acute
--- NOTE | 2017-09-23 17:07 | CP.PCM.PN ---
Subjective - Date & Time of Evaluation Date of Evaluation: 09/23/17 Time of Evaluation: 16:40 - Subjective Subjective: Progress note dictated #[id number] Objective - Vital Signs/Intake and Output Vital Signs (last 24 hours): Temp Pulse Resp BP Pulse Ox 96.5 F L 106 H 23 131/58 L 100 09/23/17 15:42 09/23/17 15:10 09/23/17 15:10 09/23/17 15:10 09/23/17 15:10 Intake and Output: 09/23/17 09/23/17 06:59 18:59 Intake Total 1686 1492 Output Total 525 1045 Balance 1161 447 - Medications Medications: Current Medications Acetaminophen (Tylenol 650mg/20.3ml Solution Ud) 650 mg NG Q6 PRN PRN Reason: Temperature Last Admin: 09/21/17 07:17 Dose: 650 mg Artificial Tears (Lacri-Lube) 1 gm OS Q6H PRN PRN Reason: Sedation Last Admin: 09/06/17 20:10 Dose: 1 gm Diltiazem HCl (Cardizem) 30 mg PO QID [facility] Last Admin: 09/23/17 09:41 Dose: 30 mg Famotidine (Pepcid) 20 mg IVP Q12 [facility] Last Admin: 09/23/17 09:40 Dose: 20 mg Heparin Sodium (Porcine) (Heparin) 5,000 units SC Q12 [facility] Last Admin: 09/23/17 09:40 Dose: 5,000 units Levetiracetam 1,000 mg/ (Dextrose) 110 mls @ 440 mls/hr IVPB Q12H [facility] Last Admin: 09/23/17 05:22 Dose: 440 mls/hr Fluconazole (Diflucan Iv 200 Mg/100 Ml Ns) 100 mls @ 100 mls/hr IVPB DAILY [facility] Last Admin: 09/23/17 09:41 Dose: 100 mls/hr Propofol (Diprivan) 1,000 mg in 100 mls @ 4.998 mls/hr IV .Q20H1M PRN; Protocol ; 12.4 MCG/KG/MIN PRN Reason: TITRATE PER MD ORDER Last Admin: 09/23/17 07:37 Dose: 20 mcg/kg/min, 8.061 mls/hr Vancomycin/Sodium Chloride (Vancomycin 1 Gm/Ns 200 Ml) 1 gm in 200 mls @ 133.333 mls/hr IVPB Q8H [facility] Stop: 09/26/17 21:01 Last Admin: 09/23/17 13:01 Dose: 133.333 mls/hr Diltiazem HCl 125 mg/ Dextrose 125 mls @ 15 mls/hr IV .Q8H20M PRN; 15 MG/HR PRN Reason: Protocol Last Admin: 09/22/17 18:48 Dose: 10 mg/hr, 10 mls/hr Meropenem 1 gm/ Dextrose 100 mls @ 100 mls/hr IVPB Q8 [facility] Last Admin: 09/23/17 14:21 Dose: 100 mls/hr Sodium Chloride (Sodium Chloride 0.9%) 1,000 mls @ 75 mls/hr IV .[id number] [facility] Last Admin: 09/23/17 02:40 Dose: Not Given Lorazepam (Ativan) 2 mg IVP Q6H PRN PRN Reason: Agitation Last Admin: 09/21/17 13:18 Dose: 2 mg Metoprolol Tartrate (Lopressor) 25 mg PO Q8H [facility] Last Admin: 09/23/17 14:25 Dose: 25 mg Scopolamine (Transderm-Scop) 1 patch TD Q3D [facility] Last Admin: 09/20/17 21:18 Dose: 1 patch Thiamine HCl (Vitamin B1 Inj) 100 mg IV DAILY [facility] Last Admin: 09/23/17 09:39 Dose: 100 mg - Labs Labs: 09/23/17 04:18 09/23/17 04:18 PT 16.9 SECONDS (9.7-12.2) H 09/18/17 14:01 INR 1.5 09/18/17 14:01 APTT 33 SECONDS (21-34) 09/18/17 14:01
--- NOTE | 2017-09-23 17:12 | CT ---
PROCEDURE: CT Chest, Abdomen and Pelvis with intravenous contrast HISTORY: f/u on pneumomediastinitis, suspected ileus COMPARISON: CT chest from 09/20/2017 TECHNIQUE: CT scan of the chest, abdomen and pelvis was performed after intravenous injection of contrast. Oral contrast was not administered. Coronal and sagittal reformatted images were obtained. IV dose administered: 100 mL Visipaque Radiation dose: Total exam DLP = 1031.27 mGy-cm. This CT exam was performed using one or more of the following dose reduction techniques: Automated exposure control, adjustment of the mA and/or kV according to patient size, and/or use of iterative reconstruction technique. FINDINGS: CT CHEST WITH CONTRAST: There is stable position of endotracheal tube, nasogastric tube, support lines. LUNGS: There is patchy ground-glass attenuation in both lungs and persistent consolidation in the left lower lobe with air bronchogram. There is subsegmental atelectasis in both lower lobes. There is interval there is a stable 6 mm nodule in the right lower lobe. (Series 3, image 49). Improvement since the prior examination. MEDIASTINUM: There is interval near complete resolution of pneumomediastinum with small residual pneumomediastinum in the left superior mediastinum. LYMPH NODES: There are subcentimeter mediastinal lymph nodes, likely reactive. . PLEURA: No pneumothorax. No pleural fluid. BONES: Unremarkable. OTHER FINDINGS: The nasogastric tube terminates in the stomach. CT ABDOMEN AND PELVIS: LIVER: There is fatty infiltration in the liver. No gross lesion or ductal dilatation. GALLBLADDER AND BILE DUCTS: There are calcified gallstones and moderate pericholecystic fluid. PANCREAS: Multiple pancreatic fluid collections. No ductal dilatation. SPLEEN: Moderate splenomegaly without focal lesion. ADRENALS: No discrete nodule. KIDNEYS AND URETERS: Both kidneys are normal in size and there is homogeneous enhancement. No hydronephrosis. No solid mass. VASCULATURE: No aortic aneurysm. BOWEL: There is mild dilatation of fluid-filled mid small bowel loops with wall enhancement. The colon is decompressed. No bowel obstruction. APPENDIX: No inflammatory changes in the right lower quadrant. A rectal tube remains in place. PERITONEUM: There is moderate abdominal and pelvic ascites and loculated ascites in the peripancreatic region surrounding the stomach and in the abdominal cavity. No free air. LYMPH NODES: Prominent mesenteric lymph nodes likely reactive. BLADDER: Indwelling Andino catheter vertex with subsequent decompression and expected intraluminal air. REPRODUCTIVE: The uterus is normal in size. BONES: No acute fracture. Degenerative disc disease at L5-S1 with vacuum disc. OTHER FINDINGS: None. IMPRESSION: 1. Interval significant decrease in size of pneumomediastinum with residual pneumomediastinum in this left superior mediastinal. 2. Mild alveolar pulmonary edema. Interval improvement in left lower lobe consolidation/pneumonia. 3. Moderate abdominal and pelvic ascites and multiloculated fluid collections in the peripancreatic region. 4. Mild dilatation of fluid-filled mid small bowel loops with wall enhancement which may be related to ileus or nonspecific enteritis. No bowel obstruction. 5. Cholelithiasis. Moderate pericholecystic fluid is likely secondary to systemic process.
--- NOTE | 2017-09-23 18:16 | PN ---
DATE: 09/23/2017 SUBJECTIVE: The patient is seen and examined at bedside. Events from yesterday and this morning noted. The patient is still unresponsive, intubated, having intermittent involuntary movements of the eyelids and upper and lower extremities. PHYSICAL EXAMINATION: VITAL SIGNS: Blood pressure 131/58, pulse 116, respirations 28 on mechanical ventilation, tidal volume 400, sed rate 15, PEEP of 5, O2 sat is 50%, temperature 96.5, T-Max is 99.8 degrees Fahrenheit. Intake is 3923, output is 1595. HEENT: Pupils sluggishly reacting to light. No icterus. Positive pallor. ET tube and gastric tube in the oral cavity. NECK: Supple. No JVD. LUNGS: Bilateral vesicular breath sounds. Bilateral basilar crackles. CARDIOVASCULAR SYSTEM: S1 and S2 present, regular, tachycardic. ABDOMEN: Soft and nontender. Bowel sounds present. CENTRAL NERVOUS SYSTEM: Intubated, sedated, unresponsive to deep painful stimuli, not moving any extremities, intermittent involuntary movements of the eyelids. EXTREMITIES: No edema. MEDICATIONS: Include Tylenol, Artificial Tears, Cardizem 30 mg p.o. q.i.d., Cardizem drip 15 mg/hour, Pepcid 20 mg IV push q.12 hours, Diflucan 200 mg IV daily, heparin 5000 units q.12 hours, Keppra 1 g q.12 hours, Ativan 2 mg IV push q.6, meropenem 1 g IV q. 8 hours, metoprolol 25 mg p.o. q.8 hours, propofol drip, scopolamine transdermal patch 0.9, saline at 75 mL an hour, thiamine 100 mg IV daily and vancomycin 1 g IV q.8 hours. LABORATORY DATA: Labs from this morning: WBC 19.7, hemoglobin 10.1, hematocrit 31, and platelets 295. ABG on 50% FiO2, pH of 7.49, pCO2 of 38, pO2 of 148, and O2 sat is 99.5%. Sodium 132, potassium 4.4, chloride 98, bicarb 27, BUN 2, creatinine 0.3, glucose 102, calcium 9.6, phosphorus 3.2, magnesium 1.4, total bilirubin 1.2, AST 19, ALT 31, alkaline phosphatase 103, total protein 6.5, and albumin 2.6. C. diff negative. Repeat blood cultures, negative so far. Urine culture negative. 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 Her neurological status remains the same. Continue with the seizure medications. Continue with vent support. Continue with current antibiotics. I would replace magnesium. Monitor electrolytes closely. Followup with CT of abdomen, chest and pelvis results. Continue with DVT and GI prophylaxis. Continue with current antibiotics, which was changed by ID. Repeat cultures remain negative so far. As rhe patient's family members were supposed to come yesterday but no family members were here and unable to discuss the patient's critical condition and discuss further in detail regarding terminal extubation and withdrawal of the support. As per nurses from the ICU, the patient's mother will not be able to come until next Sunday along with her granddaughter and son to decide regarding the continuity of care. We will follow up with palliative care and the bioethics consult is still pending. Requested bioethics consult with Dr. Miranda 2 weeks ago. We will request the consult for bioethics consult. The patient's condition is critical and prognosis is guarded with multiple comorbidities. We will continue with aggressive management until the patient's family decides. We will repeat labs in a.m. Phoenix Caballero MD
[2017-09-24 04:36] LABS: BASO # 0.1 K/uL (0.0-0.2); BASO % 0.8 % (0.0-2.0); EOS # 0.4 K/uL (0.0-0.7); EOS % 2.8 % (0.0-4.0); HEMATOCRIT 31.4 % (34.0-47.0); LYMPH # 1.6 K/uL (1.0-4.3); MEAN CELL VOLUME 88.2 fL (81.0-99.0); MEAN CORPUSCULAR HEMOGLOBIN 29.1 pg (27.0-31.0); MEAN PLATELET VOLUME 8.2 fL (7.2-11.7); MONO % 7.3 % (0.0-10.0); RED CELL DISTRIBUTION WIDTH 14.8 % (11.5-14.5); WHITE BLOOD COUNT 13.1 K/uL (4.8-10.8)
[2017-09-24 04:43] LABS: CHLORIDE 99 mmol/L (98-107); POTASSIUM 3.7 mmol/L (3.6-5.2); SODIUM 133 mmol/L (132-148)
[2017-09-24 04:45] LABS: AST/SGOT 23 U/L (14-36); BILIRUBIN,TOTAL 1.2 mg/dL (0.2-1.3); CARBON DIOXIDE 28 mmol/L (22-30); GFR AFRICAN-AMERICAN > 60
[2017-09-24 04:46] LABS: ALB/GLOB RATIO 0.7 (1.0-2.1); ALKALINE PHOSPHATASE 112 U/L (38-126); ALT/SGPT 32 U/L (9-52); CALCIUM 9.6 mg/dl (8.6-10.4); GLUCOSE,RANDOM 87 mg/dL (65-105); TOTAL PROTEIN 6.7 g/dL (6.3-8.3)
[2017-09-24 04:47] LABS: BLOOD UREA NITROGEN 2 mg/dL (7-17); MAGNESIUM 1.4 mg/dL (1.6-2.3)
[2017-09-24] MEDS: Vancomycin 1 gm/NS 200 ml 1 GM/200 ML BAG IVPB SCH ×3 (05:13→21:00)
[2017-09-24] MEDS: Sodium Chloride 0.9% 1,000 ML IV SCH ×2 (05:20→19:05)
[2017-09-24 05:37] LABS: ABG ALLEN TEST POS; ABG MECHANICAL RATE 15; ARTERIAL BLOOD GAS MODE PRVC; ARTERIAL BLOOD HGB O2 SAT 96.2 % (95.0-98.0); ATERIAL BLOOD GAS PEEP 5; CARBOXYHEMOGLOBIN 1.8 % (0.5-1.5); DRAW SITE LR; HHB 0.6 % (0.0-5.0); METHEMOGLOBIN 1.4 % (0.0-3.0)
[2017-09-24] MEDS: Meropenem 1 GM in Dextrose 5% In Water 100 ML IVPB SCH ×2 (05:39→13:20)
[2017-09-24] MEDS: Propofol 10 mg/ml 1,000 MG/100 ML VIAL IV PRN ×2 (07:51→19:03)
--- NOTE | 2017-09-24 08:54 | CP.PCM.PCO ---
Physician Communication Note - Physician Communication Note Physician Communication Note: Family 9 daughter) has not call back with providing time of meeting
[2017-09-24] MEDS: Magnesium Sulfate 1 gm in D5W 1 GM/100 ML BAG IVPB SCH ×2 (10:56→11:09)
[2017-09-24] MEDS: Thiamine 100 mg/ml Inj IV SCH (10:57)
[2017-09-24] MEDS: Fluconazole IV 200mg/100 ml NS 100 ML IVPB SCH (10:58)
--- NOTE | 2017-09-24 11:06 | CP.CCUPN ---
<Liset Massey - Last Filed: 09/24/17 12:45> CCU Subjective - Physician Review Subjective (Free Text): Patient seen and examined at bedside. Patient currently intubated. ROS unobtainable due to patient's current clinical status. CCU Objective - Vital Signs / Intake & Output Vital Signs (Last 4 hours): Vital Signs Temp Pulse Resp BP Pulse Ox 09/24/17 08:09 116 H 16 108/63 100 09/24/17 08:00 99.3 F 117 H 23 100 09/24/17 07:10 115 H 25 H 101/60 99 09/24/17 07:00 115 H 20 100 Intake and Output (Last 8hrs): Intake & Output 09/23/17 09/24/17 09/24/17 22:59 06:59 14:59 Intake Total 1284 1004 176 Output Total 525 505 85 Balance 759 499 91 Intake: IV 100 100 Intake, IV Amount 1104 904 176 Right Distal Port 64 64 16 Internal Jugular Right Forearm 40 40 10 Right Proximal Port 800 600 150 Internal Jugular left hand 200 200 Other 80 Output: Urine 475 405 85 Urethral (Andino) 475 405 85 Stool 50 Urine/Stool Mix 100 - Physical Exam Head: Positive for: Atraumatic, Normocephalic Pupils: Positive for: Sluggish Extroacular Muscles: Negative for: EOMI Mouth: Positive for: Moist Mucous Membranes Respiratory/Chest: Positive for: Good Air Exchange, Rhonchi, Other ( subcutaneous emphysema ) Cardiovascular: Positive for: Normal S1, S2, Tachycardic Abdomen: Positive for: Distention, Normal Bowel Sounds. Negative for: Tenderness Upper Extremity: Negative for: Edema Lower Extremity: Negative for: Edema Neurological: Negative for: GCS=15, CN II-XII Intact, Speech Normal Skin: Positive for: Normal Color Psychiatric: Negative for: Alert, Oriented x 3 - Medications Active Medications: Active Medications Generic Name Dose Route Start Last Admin Trade Name Freq PRN Reason Stop Dose Admin Acetaminophen 650 mg 09/15/17 03:51 09/21/17 07:17 Tylenol 650mg/20.3ml Solution Ud NG 650 mg Q6 PRN Administration Temperature Artificial Tears 1 gm 08/31/17 12:00 09/06/17 20:10 Lacri-Lube OS 1 gm Q6H PRN Administration Sedation Diltiazem HCl 30 mg 09/21/17 10:00 09/23/17 21:47 Cardizem PO 30 mg QID EUSEBIO Administration Famotidine 20 mg 09/21/17 10:45 09/23/17 21:47 Pepcid IVP 20 mg Q12 EUSEBIO Administration Heparin Sodium (Porcine) 5,000 units 09/14/17 12:30 09/23/17 21:47 Heparin SC 5,000 units Q12 EUSEBIO Administration Levetiracetam 1,000 mg/ 110 mls @ 440 mls/hr 09/10/17 06:00 09/24/17 05:39 Dextrose IVPB 440 mls/hr Q12H EUSEBIO Administration Fluconazole 100 mls @ 100 mls/hr 09/17/17 10:30 09/23/17 09:41 Diflucan Iv 200 Mg/100 Ml Ns IVPB 100 mls/hr DAILY EUSEBIO Administration Propofol 1,000 mg in 100 mls @ 4.998 mls/hr 09/18/17 13:13 09/24/17 07:51 Diprivan IV 20 mcg/kg/min .Q20H1M PRN 8.061 mls/hr TITRATE PER MD ORDER Administration Protocol 12.4 MCG/KG/MIN Vancomycin/Sodium Chloride 1 gm in 200 mls @ 133.333 mls/hr 09/21/17 21:00 05:13 Vancomycin 1 Gm/Ns 200 Ml IVPB 09/26/17 21:01 Not Given Q8H EUSEBIO Diltiazem HCl 125 mg/ Dextrose 125 mls @ 15 mls/hr 09/22/17 08:45 09/23/17 19 :24 IV 10 mg/hr .Q8H20M PRN 10 mls/hr Protocol Administration 15 MG/HR Meropenem 1 gm/ Dextrose 100 mls @ 100 mls/hr 09/22/17 22:00 09/24/17 05:39 IVPB 100 mls/hr Q8 EUSEBIO Administration Sodium Chloride 1,000 mls @ 75 mls/hr 09/22/17 13:17 09/24/17 05:20 Sodium Chloride 0.9% IV Not Given .[id number] EUSEBIO Magnesium Sulfate/Dextrose 1 gm in 100 mls @ 300 mls/hr 09/24/17 10:15 Magnesium Sulfate 1 Gm/100 Ml D5w IVPB 09/24/17 11:04 Q30M EUSEBIO Metoprolol Tartrate 25 mg 09/13/17 13:00 09/24/17 05:16 Lopressor PO 25 mg Q8H EUSEBIO Administration Scopolamine 1 patch 09/14/17 22:00 09/23/17 22:35 Transderm-Scop TD 1 patch Q3D EUSEBIO Administration Thiamine HCl 100 mg 08/30/17 22:15 09/23/17 09:39 Vitamin B1 Inj IV 100 mg DAILY EUSEBIO Administration - Patient Studies Lab Studies: Microbiology Studies 09/19/17 20:25 - Final Blood Transfusion Bag - Preliminary NO GROWTH AFTER 4 DAYS 09/22/17 11:00 Blood Culture - Preliminary Blood-Venous NO GROWTH AFTER 24 HOURS 09/22/17 11:30 Blood Culture - Preliminary Blood-Venous NO GROWTH AFTER 24 HOURS 09/22/17 Unknown Urine Culture - Final Urine,Catheterized No Growth (<1,000 CFU/ML) Lab Studies 09/24/17 09/24/17 09/24/17 Range/Units 05:20 04:29 04:29 WBC 13.1 H (4.8-10.8) K/uL RBC 3.56 L (3.80-5.20) Mil/uL Hgb 10.4 L (11.0-16.0) g/dL Hct 31.4 L (34.0-47.0) % MCV 88.2 (81.0-99.0) fL MCH 29.1 (27.0-31.0) pg MCHC 33.0 (33.0-37.0) g/dL RDW 14.8 H (11.5-14.5) % Plt Count 278 (130-400) K/uL MPV 8.2 (7.2-11.7) fL Neut % (Auto) 77.1 H (50.0-75.0) % Lymph % (Auto) 12.0 L (20.0-40.0) % [place] % (Auto) 7.3 (0.0-10.0) % Eos % (Auto) 2.8 (0.0-4.0) % Baso % (Auto) 0.8 (0.0-2.0) % Neut # 10.1 H (1.8-7.0) K/uL Lymph # 1.6 (1.0-4.3) K/uL [place] # 1.0 H (0.0-0.8) K/uL Eos # 0.4 (0.0-0.7) K/uL Baso # 0.1 (0.0-0.2) K/uL Puncture Site Lr pCO2 37 (35-45) mm/Hg pO2 164 H (80-100) mm/Hg HCO3 29.1 H (21-28) mmol/L ABG pH 7.50 H (7.35-7.45) ABG Total CO2 30.0 H (22-28) mmol/L ABG O2 Saturation 99.4 H (95-98) % ABG Base Excess 5.4 H (-2.0-3.0) mmol/L ABG Hemoglobin 9.4 L (11.7-17.4) g/dL ABG Carboxyhemoglobin 1.8 H (0.5-1.5) % POC ABG HHb (Measured) 0.6 (0.0-5.0) % ABG Methemoglobin 1.4 (0.0-3.0) % Stephen Test Pos A-a O2 Difference 146.0 mm/Hg Respiratory Index 0.9 Hgb O2 Saturation 96.2 (95.0-98.0) % Vent Mode Prvc Mechanical Rate 15 FiO2 50.0 % Tidal Volume 400 PEEP 5 Sodium 133 (132-148) mmol/L Potassium 3.7 (3.6-5.2) mmol/L Chloride 99 (98-107) mmol/L Carbon Dioxide 28 (22-30) mmol/L Anion Gap 11 (10-20) BUN 2 L (7-17) mg/dL Creatinine 0.3 L (0.7-1.2) mg/dL Est GFR ( Amer) > 60 Est GFR (Non-Af Amer) > 60 POC Glucose (mg/dL) (65-110) mg/dL Random Glucose 87 (65-105) mg/dL Calcium 9.6 (8.6-10.4) mg/dl Phosphorus 4.0 (2.5-4.5) mg/dL Magnesium 1.4 L (1.6-2.3) mg/dL Total Bilirubin 1.2 (0.2-1.3) mg/dL AST 23 (14-36) U/L ALT 32 (9-52) U/L Alkaline Phosphatase 112 (38-126) U/L Total Protein 6.7 (6.3-8.3) g/dL Albumin 2.7 L (3.5-5.0) g/dL Globulin 4.0 H (2.2-3.9) gm/dL Albumin/Globulin Ratio 0.7 L (1.0-2.1) Vancomycin Trough (5.0-10.0) ug/mL 09/24/17 09/23/17 09/23/17 Range/Units 04:29 23:30 11:44 WBC (4.8-10.8) K/uL RBC (3.80-5.20) Mil/uL Hgb (11.0-16.0) g/dL Hct (34.0-47.0) % MCV (81.0-99.0) fL MCH (27.0-31.0) pg MCHC (33.0-37.0) g/dL RDW (11.5-14.5) % Plt Count (130-400) K/uL MPV (7.2-11.7) fL Neut % (Auto) (50.0-75.0) % Lymph % (Auto) (20.0-40.0) % [place] % (Auto) (0.0-10.0) % Eos % (Auto) (0.0-4.0) % Baso % (Auto) (0.0-2.0) % Neut # (1.8-7.0) K/uL Lymph # (1.0-4.3) K/uL [place] # (0.0-0.8) K/uL Eos # (0.0-0.7) K/uL Baso # (0.0-0.2) K/uL Puncture Site pCO2 (35-45) mm/Hg pO2 (80-100) mm/Hg HCO3 (21-28) mmol/L ABG pH (7.35-7.45) ABG Total CO2 (22-28) mmol/L ABG O2 Saturation (95-98) % ABG Base Excess (-2.0-3.0) mmol/L ABG Hemoglobin (11.7-17.4) g/dL ABG Carboxyhemoglobin (0.5-1.5) % POC ABG HHb (Measured) (0.0-5.0) % ABG Methemoglobin (0.0-3.0) % Stephen Test A-a O2 Difference mm/Hg Respiratory Index Hgb O2 Saturation (95.0-98.0) % Vent Mode Mechanical Rate FiO2 % Tidal Volume PEEP Sodium (132-148) mmol/L Potassium (3.6-5.2) mmol/L Chloride (98-107) mmol/L Carbon Dioxide (22-30) mmol/L Anion Gap (10-20) BUN (7-17) mg/dL Creatinine (0.7-1.2) mg/dL Est GFR ( Amer) Est GFR (Non-Af Amer) POC Glucose (mg/dL) 98 103 (65-110) mg/dL Random Glucose (65-105) mg/dL Calcium (8.6-10.4) mg/dl Phosphorus (2.5-4.5) mg/dL Magnesium (1.6-2.3) mg/dL Total Bilirubin (0.2-1.3) mg/dL AST (14-36) U/L ALT (9-52) U/L Alkaline Phosphatase (38-126) U/L Total Protein (6.3-8.3) g/dL Albumin (3.5-5.0) g/dL Globulin (2.2-3.9) gm/dL Albumin/Globulin Ratio (1.0-2.1) Vancomycin Trough 20.4 H (5.0-10.0) ug/mL Laboratory Results - last 24 hr 09/23/17 09/23/17 09/24/17 11:44 23:30 04:29 WBC RBC Hgb Hct MCV MCH MCHC RDW Plt Count MPV Neut % (Auto) Lymph % (Auto) [place] % (Auto) Eos % (Auto) Baso % (Auto) Neut # Lymph # [place] # Eos # Baso # Puncture Site pCO2 pO2 HCO3 ABG pH ABG Total CO2 ABG O2 Saturation ABG Base Excess ABG Hemoglobin ABG Carboxyhemoglobin POC ABG HHb (Measured) ABG Methemoglobin Stephen Test A-a O2 Difference Respiratory Index Hgb O2 Saturation Vent Mode Mechanical Rate FiO2 Tidal Volume PEEP Sodium Potassium Chloride Carbon Dioxide Anion Gap BUN Creatinine Est GFR ( Amer) Est GFR (Non-Af Amer) POC Glucose (mg/dL) 103 98 Random Glucose Calcium Phosphorus Magnesium Total Bilirubin AST ALT Alkaline Phosphatase Total Protein Albumin Globulin Albumin/Globulin Ratio Vancomycin Trough 20.4 H 09/24/17 09/24/17 09/24/17 04:29 04:29 05:20 WBC 13.1 H RBC 3.56 L Hgb 10.4 L Hct 31.4 L MCV 88.2 MCH 29.1 MCHC 33.0 RDW 14.8 H Plt Count 278 MPV 8.2 Neut % (Auto) 77.1 H Lymph % (Auto) 12.0 L [place] % (Auto) 7.3 Eos % (Auto) 2.8 Baso % (Auto) 0.8 Neut # 10.1 H Lymph # 1.6 [place] # 1.0 H Eos # 0.4 Baso # 0.1 Puncture Site Lr pCO2 37 pO2 164 H HCO3 29.1 H ABG pH 7.50 H ABG Total CO2 30.0 H ABG O2 Saturation 99.4 H ABG Base Excess 5.4 H ABG Hemoglobin 9.4 L ABG Carboxyhemoglobin 1.8 H POC ABG HHb (Measured) 0.6 ABG Methemoglobin 1.4 Stephen Test Pos A-a O2 Difference 146.0 Respiratory Index 0.9 Hgb O2 Saturation 96.2 Vent Mode Prvc Mechanical Rate 15 FiO2 50.0 Tidal Volume 400 PEEP 5 Sodium 133 Potassium 3.7 Chloride 99 Carbon Dioxide 28 Anion Gap 11 BUN 2 L Creatinine 0.3 L Est GFR ( Amer) > 60 Est GFR (Non-Af Amer) > 60 POC Glucose (mg/dL) Random Glucose 87 Calcium 9.6 Phosphorus 4.0 Magnesium 1.4 L Total Bilirubin 1.2 AST 23 ALT 32 Alkaline Phosphatase 112 Total Protein 6.7 Albumin 2.7 L Globulin 4.0 H Albumin/Globulin Ratio 0.7 L Vancomycin Trough Fingerstick Blood Sugar Results: 123 Review of Systems - Review of Systems Systems not reviewed;Unavailable: Intubated Critical Care Progress Note - Nutrition Nutrition: Nutrition Category Date Time Status NPO Diet [DIET] Diets 09/18/17 Breakfast Active Assessment/Plan - Assessment and Plan (Free Text) Assessment: 36 year old female with past medical history of anemia and alcohol abuse, who was found unconscious by . EMS was called and patient was found to be in Asystole, ACLS protocol was initiated and 2 rounds of epinephrine and then ROSC. Patient was unconscious in the ED. Subsequently, patient was admitted to the ICU and hypothermia protocol was initiated. Plan: Neuro: Intubated, Acute seizures Neurologist, Dr. Pugh---> help appreciated * Management as per recommendation Medication/Management: * Keppra 500mg IV Q12H * Propofol (Titratable) Imaging: * EEG (08/31/17): globally abnormal EEG because of persistent spike and wave activities consistent with status epilepticus. Please correlate the findings with neurological and radiological studies * Cerebral blood flow (09/03/17): does not conform to nuclear medicine diagnosis of brain . There is a faint cerebral flow, the study is considered technically suboptimal for reasons related to technique and poor visualization of carotid arteries. * CT head w/o contrast (09/03/17): No mass effect or edema. No atrophy or chronic microvascular. * EEG (09/06): status epilepticus * head CT (09/12/17): asymmetric low attenuation in the L basal ganglia could represent anoxic injury. Mild global parenchymal volume loss, advanced for the patient's age. Cardio: Cardiopulmonary Arrest, tachycardia Management: * Intubated * Hypothermia protocol was initiated * Lopressor 25mg po q8h * Cardizem drip started (09/17) Pulm: Respiratory distress secondary to cardiac arrest, intubated * Intubated * sputum culture: staph * D Dimer: [id number] * CTA: no evidence of PE, bibasilar consolidation. Upper lobe interstitial infiltrates. 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 Plaza consulted, help appreciated * 09/20 CTA head and neck: extensive soft tissue air, including air in retropharyngeal space. deep soft tissue defect in the midline anterior neck soft tissues which extends from the skin surface to the anterior wall of the trachee. Cannot exclude tracheocutaneous fistula, secondary to a focal tracheal rupture or injury. This could be the cause of the soft tissue gas. An ET tube is in place. Extensive pneumomediastinum, left orbital emphysema, findings highly suspicious for diffuse left otomastoiditis. * Dr. Dockery d/c trach on 09/21 and orally intubated with cuff placement distal to site of fistula * as per Dr. Dockery patient to receive extended trach which will bypass fistula GI: Diarrhea * C. Dif negative (09/03) * repeat C. dif (09/17) negative * Dr. Hernandez consulted for PEG placement, because of TE fistula probably better to surgically placed G tube * Dr. Skinner agrees that PEG cannot be done due to TE fistula, surgical PEG to be considered * IR consulted for PEG eval, help appreciated Renal: Electrolyte imbalance Nephrology, Dr. Ramos---> Help appreciated * Management as per recommendation * electrolytes repleted as needed Heme: anemia * H/H: on 09/12 dropped to 7.3/22.5 from 8.1/24.5- patient was transfused 2 u PRBCs * H/H: 9.8/30.4 * 09/18- INR: 1.8, 2u FFP transfused and Vit K 10mg sc given * 09/19: INR: 1.5, 2 units FFP HgB dropped to 8.3 from 9.8, transfuse 1 u PRBCs * 09/24: stable H/H: 10.4/ 31.4 ID: * sputum: staph aureus * Merrem 1 gm q8h (started on 09/22) * Vancomycin 1gm q12h * f/u random vanco * 09/12: repeat cultures: urine- yeast species, blood negative * Diflucan 200mg daily * repeat sputum culture on 09/19: MRSA * repeat blood culture 09/19: no growth Psych: Alcohol abuse disorder * Thiamine 100mg IV daily Prophylaxis measures: * R IJ in place * DVT: SCDs, Heparin 5,000 units SC Q12H * GI: Protonix 40mg IV daily * tube feeds: jevity <Jonah Aldana - Last Filed: 09/24/17 13:48> CCU Objective - Vital Signs / Intake & Output Vital Signs (Last 4 hours): Vital Signs Pulse Resp BP Pulse Ox 09/24/17 13:23 161/128 H 09/24/17 12:09 119 H 22 107/65 100 09/24/17 11:09 126 H 22 98/64 L 95 09/24/17 10:09 126 H 20 105/63 100 Intake and Output (Last 8hrs): Intake & Output 09/23/17 09/24/17 09/24/17 22:59 06:59 14:59 Intake Total 1284 1004 528 Output Total 525 505 245 Balance 759 499 283 Intake: IV 100 100 Intake, IV Amount 1104 904 528 Right Distal Port 64 64 48 Internal Jugular Right Forearm 40 40 30 Right Proximal Port 800 600 450 Internal Jugular left hand 200 200 Other 80 Output: Urine 475 405 245 Urethral (Andino) 475 405 245 Stool 50 Urine/Stool Mix 100 - Medications Active Medications: Active Medications Generic Name Dose Route Start Last Admin Trade Name Freq PRN Reason Stop Dose Admin Acetaminophen 650 mg 09/15/17 03:51 09/21/17 07:17 Tylenol 650mg/20.3ml Solution Ud NG 650 mg Q6 PRN Administration Temperature Artificial Tears 1 gm 08/31/17 12:00 09/06/17 20:10 Lacri-Lube OS 1 gm Q6H PRN Administration Sedation Diltiazem HCl 30 mg 09/21/17 10:00 09/24/17 13:25 Cardizem PO 30 mg QID EUSEBIO Administration Famotidine 20 mg 09/21/17 10:45 09/24/17 10:57 Pepcid IVP 20 mg Q12 EUSEBIO Administration Heparin Sodium (Porcine) 5,000 units 09/14/17 12:30 09/24/17 10:57 Heparin SC 5,000 units Q12 EUSEBIO Administration Levetiracetam 1,000 mg/ 110 mls @ 440 mls/hr 09/10/17 06:00 09/24/17 05:39 Dextrose IVPB 440 mls/hr Q12H EUSEBIO Administration Fluconazole 100 mls @ 100 mls/hr 09/17/17 10:30 09/24/17 10:58 Diflucan Iv 200 Mg/100 Ml Ns IVPB 100 mls/hr DAILY EUSEBIO Administration Propofol 1,000 mg in 100 mls @ 4.998 mls/hr 09/18/17 13:13 09/24/17 07:51 Diprivan IV 20 mcg/kg/min .Q20H1M PRN 8.061 mls/hr TITRATE PER MD ORDER Administration Protocol 12.4 MCG/KG/MIN Vancomycin/Sodium Chloride 1 gm in 200 mls @ 133.333 mls/hr 09/21/17 21:00 13:19 Vancomycin 1 Gm/Ns 200 Ml IVPB 09/26/17 21:01 Not Given Q8H EUSEBIO Diltiazem HCl 125 mg/ Dextrose 125 mls @ 15 mls/hr 09/22/17 08:45 09/23/17 19 :24 IV 10 mg/hr .Q8H20M PRN 10 mls/hr Protocol Administration 15 MG/HR Sodium Chloride 1,000 mls @ 75 mls/hr 09/22/17 13:17 09/24/17 05:20 Sodium Chloride 0.9% IV Not Given .[id number] EUSEBIO Meropenem 1 gm/ Sodium 100 mls @ 100 mls/hr 09/24/17 22:00 Chloride IVPB Q8 EUSEBIO Metoprolol Tartrate 25 mg 09/13/17 13:00 09/24/17 13:23 Lopressor PO 25 mg Q8H EUSEBIO Administration Scopolamine 1 patch 09/14/17 22:00 09/23/17 22:35 Transderm-Scop TD 1 patch Q3D EUSEBIO Administration Thiamine HCl 100 mg 08/30/17 22:15 09/24/17 10:57 Vitamin B1 Inj IV 100 mg DAILY EUSEBIO Administration - Patient Studies Lab Studies: Microbiology Studies 09/22/17 11:00 Blood Culture - Preliminary Blood-Venous NO GROWTH AFTER 48 HOURS 09/22/17 11:30 Blood Culture - Preliminary Blood-Venous NO GROWTH AFTER 48 HOURS 09/19/17 20:25 - Final Blood Transfusion Bag - Preliminary NO GROWTH AFTER 4 DAYS 09/22/17 Unknown Urine Culture - Final Urine,Catheterized No Growth (<1,000 CFU/ML) Lab Studies 09/24/17 09/24/17 09/24/17 Range/Units 11:15 05:20 04:29 WBC (4.8-10.8) K/uL RBC (3.80-5.20) Mil/uL Hgb (11.0-16.0) g/dL Hct (34.0-47.0) % MCV (81.0-99.0) fL MCH (27.0-31.0) pg MCHC (33.0-37.0) g/dL RDW (11.5-14.5) % Plt Count (130-400) K/uL MPV (7.2-11.7) fL Neut % (Auto) (50.0-75.0) % Lymph % (Auto) (20.0-40.0) % [place] % (Auto) (0.0-10.0) % Eos % (Auto) (0.0-4.0) % Baso % (Auto) (0.0-2.0) % Neut # (1.8-7.0) K/uL Lymph # (1.0-4.3) K/uL [place] # (0.0-0.8) K/uL Eos # (0.0-0.7) K/uL Baso # (0.0-0.2) K/uL Puncture Site Lr pCO2 37 (35-45) mm/Hg pO2 164 H (80-100) mm/Hg HCO3 29.1 H (21-28) mmol/L ABG pH 7.50 H (7.35-7.45) ABG Total CO2 30.0 H (22-28) mmol/L ABG O2 Saturation 99.4 H (95-98) % ABG Base Excess 5.4 H (-2.0-3.0) mmol/L ABG Hemoglobin 9.4 L (11.7-17.4) g/dL ABG Carboxyhemoglobin 1.8 H (0.5-1.5) % POC ABG HHb (Measured) 0.6 (0.0-5.0) % ABG Methemoglobin 1.4 (0.0-3.0) % Stephen Test Pos A-a O2 Difference 146.0 mm/Hg Respiratory Index 0.9 Hgb O2 Saturation 96.2 (95.0-98.0) % Vent Mode Prvc Mechanical Rate 15 FiO2 50.0 % Tidal Volume 400 PEEP 5 Sodium 133 (132-148) mmol/L Potassium 3.7 (3.6-5.2) mmol/L Chloride 99 (98-107) mmol/L Carbon Dioxide 28 (22-30) mmol/L Anion Gap 11 (10-20) BUN 2 L (7-17) mg/dL Creatinine 0.3 L (0.7-1.2) mg/dL Est GFR ( Amer) > 60 Est GFR (Non-Af Amer) > 60 POC Glucose (mg/dL) 101 (65-110) mg/dL Random Glucose 87 (65-105) mg/dL Calcium 9.6 (8.6-10.4) mg/dl Phosphorus 4.0 (2.5-4.5) mg/dL Magnesium 1.4 L (1.6-2.3) mg/dL Total Bilirubin 1.2 (0.2-1.3) mg/dL AST 23 (14-36) U/L ALT 32 (9-52) U/L Alkaline Phosphatase 112 (38-126) U/L Total Protein 6.7 (6.3-8.3) g/dL Albumin 2.7 L (3.5-5.0) g/dL Globulin 4.0 H (2.2-3.9) gm/dL Albumin/Globulin Ratio 0.7 L (1.0-2.1) Vancomycin Trough (5.0-10.0) ug/mL 09/24/17 09/24/17 09/23/17 Range/Units 04:29 04:29 23:30 WBC 13.1 H (4.8-10.8) K/uL RBC 3.56 L (3.80-5.20) Mil/uL Hgb 10.4 L (11.0-16.0) g/dL Hct 31.4 L (34.0-47.0) % MCV 88.2 (81.0-99.0) fL MCH 29.1 (27.0-31.0) pg MCHC 33.0 (33.0-37.0) g/dL RDW 14.8 H (11.5-14.5) % Plt Count 278 (130-400) K/uL MPV 8.2 (7.2-11.7) fL Neut % (Auto) 77.1 H (50.0-75.0) % Lymph % (Auto) 12.0 L (20.0-40.0) % [place] % (Auto) 7.3 (0.0-10.0) % Eos % (Auto) 2.8 (0.0-4.0) % Baso % (Auto) 0.8 (0.0-2.0) % Neut # 10.1 H (1.8-7.0) K/uL Lymph # 1.6 (1.0-4.3) K/uL [place] # 1.0 H (0.0-0.8) K/uL Eos # 0.4 (0.0-0.7) K/uL Baso # 0.1 (0.0-0.2) K/uL Puncture Site pCO2 (35-45) mm/Hg pO2 (80-100) mm/Hg HCO3 (21-28) mmol/L ABG pH (7.35-7.45) ABG Total CO2 (22-28) mmol/L ABG O2 Saturation (95-98) % ABG Base Excess (-2.0-3.0) mmol/L ABG Hemoglobin (11.7-17.4) g/dL ABG Carboxyhemoglobin (0.5-1.5) % POC ABG HHb (Measured) (0.0-5.0) % ABG Methemoglobin (0.0-3.0) % Stephen Test A-a O2 Difference mm/Hg Respiratory Index Hgb O2 Saturation (95.0-98.0) % Vent Mode Mechanical Rate FiO2 % Tidal Volume PEEP Sodium (132-148) mmol/L Potassium (3.6-5.2) mmol/L Chloride (98-107) mmol/L Carbon Dioxide (22-30) mmol/L Anion Gap (10-20) BUN (7-17) mg/dL Creatinine (0.7-1.2) mg/dL Est GFR ( Amer) Est GFR (Non-Af Amer) POC Glucose (mg/dL) 98 (65-110) mg/dL Random Glucose (65-105) mg/dL Calcium (8.6-10.4) mg/dl Phosphorus (2.5-4.5) mg/dL Magnesium (1.6-2.3) mg/dL Total Bilirubin (0.2-1.3) mg/dL AST (14-36) U/L ALT (9-52) U/L Alkaline Phosphatase (38-126) U/L Total Protein (6.3-8.3) g/dL Albumin (3.5-5.0) g/dL Globulin (2.2-3.9) gm/dL Albumin/Globulin Ratio (1.0-2.1) Vancomycin Trough 20.4 H (5.0-10.0) ug/mL 11/12/17 Range/Units 11:44 WBC (4.8-10.8) K/uL RBC (3.80-5.20) Mil/uL Hgb (11.0-16.0) g/dL Hct (34.0-47.0) % MCV (81.0-99.0) fL MCH (27.0-31.0) pg MCHC (33.0-37.0) g/dL RDW (11.5-14.5) % Plt Count (130-400) K/uL MPV (7.2-11.7) fL Neut % (Auto) (50.0-75.0) % Lymph % (Auto) (20.0-40.0) % [place] % (Auto) (0.0-10.0) % Eos % (Auto) (0.0-4.0) % Baso % (Auto) (0.0-2.0) % Neut # (1.8-7.0) K/uL Lymph # (1.0-4.3) K/uL [place] # (0.0-0.8) K/uL Eos # (0.0-0.7) K/uL Baso # (0.0-0.2) K/uL Puncture Site pCO2 (35-45) mm/Hg pO2 (80-100) mm/Hg HCO3 (21-28) mmol/L ABG pH (7.35-7.45) ABG Total CO2 (22-28) mmol/L ABG O2 Saturation (95-98) % ABG Base Excess (-2.0-3.0) mmol/L ABG Hemoglobin (11.7-17.4) g/dL ABG Carboxyhemoglobin (0.5-1.5) % POC ABG HHb (Measured) (0.0-5.0) % ABG Methemoglobin (0.0-3.0) % Stephen Test A-a O2 Difference mm/Hg Respiratory Index Hgb O2 Saturation (95.0-98.0) % Vent Mode Mechanical Rate FiO2 % Tidal Volume PEEP Sodium (132-148) mmol/L Potassium (3.6-5.2) mmol/L Chloride (98-107) mmol/L Carbon Dioxide (22-30) mmol/L Anion Gap (10-20) BUN (7-17) mg/dL Creatinine (0.7-1.2) mg/dL Est GFR ( Amer) Est GFR (Non-Af Amer) POC Glucose (mg/dL) 103 (65-110) mg/dL Random Glucose (65-105) mg/dL Calcium (8.6-10.4) mg/dl Phosphorus (2.5-4.5) mg/dL Magnesium (1.6-2.3) mg/dL Total Bilirubin (0.2-1.3) mg/dL AST (14-36) U/L ALT (9-52) U/L Alkaline Phosphatase (38-126) U/L Total Protein (6.3-8.3) g/dL Albumin (3.5-5.0) g/dL Globulin (2.2-3.9) gm/dL Albumin/Globulin Ratio (1.0-2.1) Vancomycin Trough (5.0-10.0) ug/mL Laboratory Results - last 24 hr 09/23/17 09/23/17 09/24/17 11:44 23:30 04:29 WBC RBC Hgb Hct MCV MCH MCHC RDW Plt Count MPV Neut % (Auto) Lymph % (Auto) [place] % (Auto) Eos % (Auto) Baso % (Auto) Neut # Lymph # [place] # Eos # Baso # Puncture Site pCO2 pO2 HCO3 ABG pH ABG Total CO2 ABG O2 Saturation ABG Base Excess ABG Hemoglobin ABG Carboxyhemoglobin POC ABG HHb (Measured) ABG Methemoglobin Stephen Test A-a O2 Difference Respiratory Index Hgb O2 Saturation Vent Mode Mechanical Rate FiO2 Tidal Volume PEEP Sodium Potassium Chloride Carbon Dioxide Anion Gap BUN Creatinine Est GFR ( Amer) Est GFR (Non-Af Amer) POC Glucose (mg/dL) 103 98 Random Glucose Calcium Phosphorus Magnesium Total Bilirubin AST ALT Alkaline Phosphatase Total Protein Albumin Globulin Albumin/Globulin Ratio Vancomycin Trough 20.4 H 09/24/17 09/24/17 09/24/17 04:29 04:29 05:20 WBC 13.1 H RBC 3.56 L Hgb 10.4 L Hct 31.4 L MCV 88.2 MCH 29.1 MCHC 33.0 RDW 14.8 H Plt Count 278 MPV 8.2 Neut % (Auto) 77.1 H Lymph % (Auto) 12.0 L [place] % (Auto) 7.3 Eos % (Auto) 2.8 Baso % (Auto) 0.8 Neut # 10.1 H Lymph # 1.6 [place] # 1.0 H Eos # 0.4 Baso # 0.1 Puncture Site Lr pCO2 37 pO2 164 H HCO3 29.1 H ABG pH 7.50 H ABG Total CO2 30.0 H ABG O2 Saturation 99.4 H ABG Base Excess 5.4 H ABG Hemoglobin 9.4 L ABG Carboxyhemoglobin 1.8 H POC ABG HHb (Measured) 0.6 ABG Methemoglobin 1.4 Stephen Test Pos A-a O2 Difference 146.0 Respiratory Index 0.9 Hgb O2 Saturation 96.2 Vent Mode Prvc Mechanical Rate 15 FiO2 50.0 Tidal Volume 400 PEEP 5 Sodium 133 Potassium 3.7 Chloride 99 Carbon Dioxide 28 Anion Gap 11 BUN 2 L Creatinine 0.3 L Est GFR ( Amer) > 60 Est GFR (Non-Af Amer) > 60 POC Glucose (mg/dL) Random Glucose 87 Calcium 9.6 Phosphorus 4.0 Magnesium 1.4 L Total Bilirubin 1.2 AST 23 ALT 32 Alkaline Phosphatase 112 Total Protein 6.7 Albumin 2.7 L Globulin 4.0 H Albumin/Globulin Ratio 0.7 L Vancomycin Trough 09/24/17 11:15 WBC RBC Hgb Hct MCV MCH MCHC RDW Plt Count MPV Neut % (Auto) Lymph % (Auto) [place] % (Auto) Eos % (Auto) Baso % (Auto) Neut # Lymph # [place] # Eos # Baso # Puncture Site pCO2 pO2 HCO3 ABG pH ABG Total CO2 ABG O2 Saturation ABG Base Excess ABG Hemoglobin ABG Carboxyhemoglobin POC ABG HHb (Measured) ABG Methemoglobin Stephen Test A-a O2 Difference Respiratory Index Hgb O2 Saturation Vent Mode Mechanical Rate FiO2 Tidal Volume PEEP Sodium Potassium Chloride Carbon Dioxide Anion Gap BUN Creatinine Est GFR ( Amer) Est GFR (Non-Af Amer) POC Glucose (mg/dL) 101 Random Glucose Calcium Phosphorus Magnesium Total Bilirubin AST ALT Alkaline Phosphatase Total Protein Albumin Globulin Albumin/Globulin Ratio Vancomycin Trough Critical Care Progress Note - Nutrition Nutrition: Nutrition Category Date Time Status NPO Diet [DIET] Diets 09/18/17 Breakfast Active Assessment/Plan (1) Anemia Current Visit: Yes Status: Acute (2) Cardiac arrest Current Visit: Yes Status: Acute (3) Anoxic encephalopathy Current Visit: Yes Status: Acute Attending/Attestation - Attestation I have personally seen and examined this patient.: Yes I have fully participated in the care of the patient.: Yes I have reviewed all pertinent clinical information: Yes Notes (Text): 09/24/17 13:47 The rounds information was discussed. Patient had an episode of subcutaneous emphysema, reintubated following that complication. Also had a tracheoesophageal fistula. A currently tachycardia is improving. A residual in the stomach also noted. Clinical examination no new changes. Diarrhea noted. Labs reviewed Radiological investigation reviewed Decision were made during the rounds. Possible tracheostomy again along the tracheal tube Patient will need feeding tube by the interventional radiologist. We will get interventional radiology consultation. Prognosis very poor
--- NOTE | 2017-09-24 12:28 | CP.PCM.PN ---
Subjective - Date & Time of Evaluation Date of Evaluation: 09/24/17 Time of Evaluation: 12:22 - Subjective Subjective: Unresponsive to stimuli Objective - Vital Signs/Intake and Output Vital Signs (last 24 hours): Temp Pulse Resp BP Pulse Ox 99.3 F 116 H 16 108/63 100 09/24/17 08:00 09/24/17 08:09 09/24/17 08:09 09/24/17 08:09 09/24/17 08:09 Intake and Output: 09/24/17 09/24/17 06:59 18:59 Intake Total 1656 176 Output Total 700 85 Balance 956 91 - Medications Medications: Current Medications Acetaminophen (Tylenol 650mg/20.3ml Solution Ud) 650 mg NG Q6 PRN PRN Reason: Temperature Last Admin: 09/21/17 07:17 Dose: 650 mg Artificial Tears (Lacri-Lube) 1 gm OS Q6H PRN PRN Reason: Sedation Last Admin: 09/06/17 20:10 Dose: 1 gm Diltiazem HCl (Cardizem) 30 mg PO QID [facility] Last Admin: 09/24/17 10:58 Dose: 30 mg Famotidine (Pepcid) 20 mg IVP Q12 [facility] Last Admin: 09/24/17 10:57 Dose: 20 mg Heparin Sodium (Porcine) (Heparin) 5,000 units SC Q12 [facility] Last Admin: 09/24/17 10:57 Dose: 5,000 units Levetiracetam 1,000 mg/ (Dextrose) 110 mls @ 440 mls/hr IVPB Q12H [facility] Last Admin: 09/24/17 05:39 Dose: 440 mls/hr Fluconazole (Diflucan Iv 200 Mg/100 Ml Ns) 100 mls @ 100 mls/hr IVPB DAILY [facility] Last Admin: 09/24/17 10:58 Dose: 100 mls/hr Propofol (Diprivan) 1,000 mg in 100 mls @ 4.998 mls/hr IV .Q20H1M PRN; Protocol ; 12.4 MCG/KG/MIN PRN Reason: TITRATE PER MD ORDER Last Admin: 09/24/17 07:51 Dose: 20 mcg/kg/min, 8.061 mls/hr Vancomycin/Sodium Chloride (Vancomycin 1 Gm/Ns 200 Ml) 1 gm in 200 mls @ 133.333 mls/hr IVPB Q8H [facility] Stop: 09/26/17 21:01 Last Admin: 09/24/17 05:13 Dose: Not Given Diltiazem HCl 125 mg/ Dextrose 125 mls @ 15 mls/hr IV .Q8H20M PRN; 15 MG/HR PRN Reason: Protocol Last Admin: 09/23/17 19:24 Dose: 10 mg/hr, 10 mls/hr Meropenem 1 gm/ Dextrose 100 mls @ 100 mls/hr IVPB Q8 [facility] Last Admin: 09/24/17 05:39 Dose: 100 mls/hr Sodium Chloride (Sodium Chloride 0.9%) 1,000 mls @ 75 mls/hr IV .[id number] [facility] Last Admin: 09/24/17 05:20 Dose: Not Given Metoprolol Tartrate (Lopressor) 25 mg PO Q8H [facility] Last Admin: 09/24/17 05:16 Dose: 25 mg Scopolamine (Transderm-Scop) 1 patch TD Q3D [facility] Last Admin: 09/23/17 22:35 Dose: 1 patch Thiamine HCl (Vitamin B1 Inj) 100 mg IV DAILY [facility] Last Admin: 09/24/17 10:57 Dose: 100 mg - Labs Labs: 09/24/17 04:29 09/24/17 04:29 PT 16.9 SECONDS (9.7-12.2) H 09/18/17 14:01 INR 1.5 09/18/17 14:01 APTT 33 SECONDS (21-34) 09/18/17 14:01 - Constitutional Appears: In Acute Distress - Head Exam Head Exam: ATRAUMATIC, NORMAL INSPECTION, NORMOCEPHALIC - Eye Exam Pupil Exam: Fixed - ENT Exam Additional comments: ETT - Neck Exam Additional comments: tracheostomy - Cardiovascular Exam Cardiovascular Exam: Tachycardia - GI/Abdominal Exam GI & Abdominal Exam: Diminished Bowel Sounds - Rectal Exam Rectal Exam: Deferred - Extremities Exam Extremities Exam: Normal Inspection - Neurological Exam Neurological Exam: Motor Sensory Deficit Neuro motor strength exam: Left Upper Extremity: 0, Right Upper Extremity: 0, Left Lower Extremity: 0, Right Lower Extremity: 0 - Psychiatric Exam Psychiatric exam: Flat Affect - Skin Skin Exam: Pallor Assessment and Plan - Assessment and Plan (Free Text) Assessment: patient remains unresponsive to stimuli on MV support. The trach placement was unsuccessful last week due to fistule and daughter made aware of. The daughter agreed to call back with time for family meting on Sunday, but missed to do so. Patient looks very sick, with uncontrolled jerky movements of head, does not fallow commend, eyes are wide open, does not track, pupils are fixed and unreactive to light. The family is not coming together regarding reasonable plan of care. The 19 yo daughter is insisting on Full Code, but in a meantime is not cooperating with the ICU team which could help her understand the futility of future aggressive interventions. I discussed this patient on the morning rounds with Doctor Dockery who suggested that inserting the XL trach would be the only way to by pass fistula. Doctor Aldana feels patient should be transferred to LTAC. I discussed case with [place] nurse outreach case manager who suggested that patient would not be accepted to LTAC unless was given PEG or G Tube. I shared all of these discussions with Doctor Gauthier who was coming in today to see the patient. Impression * This is an acutely ill patient on full life support for > 3 weeks * Patient's daughter who is a decision maker and advocates for the patient is irrational and is prolonging patient's suffering by requesting the Full Code * The ICU team and the Doctor Leung agreed that allowing natural would be the best next step in the care of this patient * The daughter delays decision making process by not complying with family meetings Suggestions * Multidisciplinary meeting with presence of extended family should be held to support daughter in this decision making process and help her understand the clear clinical situation of her mother * I asked Doctor Gauthier to give a call to the daughter and see if she would respond better to her * I will call patient's mother and suggest she ensures the family presence to a meeting
--- NOTE | 2017-09-24 14:17 | CP.PCM.PN ---
Subjective - Date & Time of Evaluation Date of Evaluation: 09/24/17 Time of Evaluation: 13:30 - Subjective Subjective: Progress note dictated #[id number] Objective - Vital Signs/Intake and Output Vital Signs (last 24 hours): Temp Pulse Resp BP Pulse Ox 99.3 F 119 H 22 161/128 H 100 09/24/17 08:00 09/24/17 12:09 09/24/17 12:09 09/24/17 13:23 09/24/17 12:09 Intake and Output: 09/24/17 09/24/17 06:59 18:59 Intake Total 1656 528 Output Total 700 245 Balance 956 283 - Medications Medications: Current Medications Acetaminophen (Tylenol 650mg/20.3ml Solution Ud) 650 mg NG Q6 PRN PRN Reason: Temperature Last Admin: 09/21/17 07:17 Dose: 650 mg Artificial Tears (Lacri-Lube) 1 gm OS Q6H PRN PRN Reason: Sedation Last Admin: 09/06/17 20:10 Dose: 1 gm Diltiazem HCl (Cardizem) 30 mg PO QID [facility] Last Admin: 09/24/17 13:25 Dose: 30 mg Famotidine (Pepcid) 20 mg IVP Q12 [facility] Last Admin: 09/24/17 10:57 Dose: 20 mg Heparin Sodium (Porcine) (Heparin) 5,000 units SC Q12 [facility] Last Admin: 09/24/17 10:57 Dose: 5,000 units Levetiracetam 1,000 mg/ (Dextrose) 110 mls @ 440 mls/hr IVPB Q12H [facility] Last Admin: 09/24/17 05:39 Dose: 440 mls/hr Fluconazole (Diflucan Iv 200 Mg/100 Ml Ns) 100 mls @ 100 mls/hr IVPB DAILY [facility] Last Admin: 09/24/17 10:58 Dose: 100 mls/hr Propofol (Diprivan) 1,000 mg in 100 mls @ 4.998 mls/hr IV .Q20H1M PRN; Protocol ; 12.4 MCG/KG/MIN PRN Reason: TITRATE PER MD ORDER Last Admin: 09/24/17 07:51 Dose: 20 mcg/kg/min, 8.061 mls/hr Vancomycin/Sodium Chloride (Vancomycin 1 Gm/Ns 200 Ml) 1 gm in 200 mls @ 133.333 mls/hr IVPB Q8H [facility] Stop: 09/26/17 21:01 Last Admin: 09/24/17 13:19 Dose: Not Given Diltiazem HCl 125 mg/ Dextrose 125 mls @ 15 mls/hr IV .Q8H20M PRN; 15 MG/HR PRN Reason: Protocol Last Admin: 09/23/17 19:24 Dose: 10 mg/hr, 10 mls/hr Sodium Chloride (Sodium Chloride 0.9%) 1,000 mls @ 75 mls/hr IV .[id number] [facility] Last Admin: 09/24/17 05:20 Dose: Not Given Meropenem 1 gm/ Sodium (Chloride) 100 mls @ 100 mls/hr IVPB Q8 [facility] Metoprolol Tartrate (Lopressor) 25 mg PO Q8H [facility] Last Admin: 09/24/17 13:23 Dose: 25 mg Scopolamine (Transderm-Scop) 1 patch TD Q3D [facility] Last Admin: 09/23/17 22:35 Dose: 1 patch Thiamine HCl (Vitamin B1 Inj) 100 mg IV DAILY [facility] Last Admin: 09/24/17 10:57 Dose: 100 mg - Labs Labs: 09/24/17 04:29 09/24/17 04:29 PT 16.9 SECONDS (9.7-12.2) H 09/18/17 14:01 INR 1.5 09/18/17 14:01 APTT 33 SECONDS (21-34) 09/18/17 14:01
[2017-09-24] MEDS: Meropenem 1 GM in Sodium Chloride 0.9% 100 ML IVPB SCH (21:08)
--- NOTE | 2017-09-25 04:02 | PN ---
DATE: 09/24/2017 SUBJECTIVE: The patient was seen and examined at bedside this afternoon. The patient's mental status remains the same. No events from overnight noted. The patient remains intubated, unresponsive. PHYSICAL EXAMINATION: VITAL SIGNS: Blood pressure is 112/79, pulse 115, respirations 23, temperature 99.3 rectally, O2 sats is 100% on 50% FiO2, tidal volume 400, sed rate 15, and PEEP of 5. Intake is 3872, output is 2035 mL. HEENT: Pupils are sluggishly reacting to light. No icterus. ET tube and gastric tube in the oral cavity. NECK: Supple. Dressing over the tracheal incision site. LUNGS: Bilateral vesicular breath sounds. Bilateral basilar crackles heard. CARDIOVASCULAR SYSTEM: S1, S2 present. Tachycardic. ABDOMEN: Soft, nontender. Bowel sounds are present. CENTRAL NERVOUS SYSTEM: Intubated, unresponsive. Not responding to deep, painful stimuli or verbal stimuli. Not moving any extremities. Involuntary jerky movements of the upper and lower extremities intermittently. EXTREMITIES: No edema. MEDICATIONS: Include Tylenol, artificial tears, Cardizem 30 mg p.o. q.i.d., Cardizem drip 15 mg per hour, Pepcid 20 mg IV push q. 12 hours, Diflucan 200 mg IV daily, heparin, Keppra 1 g IV q. 12 hours, meropenem 1 g IV q. 8 hours, Lopressor 25 mg p.o. q. 8 hours, propofol as needed, IV fluids normal saline at 75 mL an hour, thiamine 100 mg IV daily, and vancomycin 1 g IV q. 12 hours. LABORATORY DATA: Labs done from this morning show WBC 13.1, hemoglobin 10.4, hematocrit 31.4, and platelets 278. ABG on 50% FiO2 with pH 7.50, pCO2 of 37, pO2 of 164, and O2 sats of 99.4%. Sodium 133, potassium 3.7, chloride 99, bicarbonate 28, BUN 2, creatinine 0.3, glucose 98, calcium 9.6, phosphorous 4.0, magnesium 1.4, total bilirubin 1.2, AST 23, ALT 32, alkaline phosphatase 112, total protein 6.7, and albumin 2.7. Vancomycin trough is 20.4. Repeat cultures are negative - both blood cultures and urine culture. 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 There is no change in her mental status. Continue with ventilator support. Continue with Cardizem and metoprolol, supplement magnesium, monitor electrolytes, and continue with deep venous thrombosis and gastrointestinal prophylaxis. Clostridium difficile is negative with persistent diarrhea. Discussed with the patient's daughter, Marion, at length and explained the patient's critical condition including her anoxic encephalopathy, ventilator-dependent respiratory failure, tachycardia, sepsis, urinary tract infection, and subcutaneous emphysema. The patient's daughter is saying that she wants to do everything possible to keep her mother comfortable, but would not want to or decide on terminal extubation at this time. I discussed with Dr. Dockery, who was planning to do extended tracheostomy tomorrow. An Interventional Radiology consult is requested for possible gastrostomy tube placement. Discussed with Case Management regarding possible transfer to LTAC once tracheostomy and gastrostomy tube are placed. Discussed with palliative care nurse at length. Discussed with the RN. There was a man by name Morgan, who was at bedside. He claims that he is the patient's stepfather, but not living with the patient's mother at this time. He would like to know the patient's condition, but he was told that we need to have consent from the patient's daughter to explain the patient's condition to him. He claims that he understands the patient's critical condition, and he would like to speak to the patient's family. The patient's RN also was there when he was at the bedside. Bioethics consult requested again with *------*. We will continue with current antibiotics. We will continue to replace the electrolyte. We will continue with aggressive management as per patient's daughter's wishes. When I was on the phone with the patient's daughter, she did not confirm anything about her visiting her mother in the hospital. She said she would return the call. I left her with my office number awaiting for her to call back; she never called until this time. We will try to contact her in the morning. The patient's condition is critical, and prognosis is guarded. Seblevamatt Caballero MD
[2017-09-25 04:40] LABS: BASO # 0.1 K/uL (0.0-0.2); BASO % 0.8 % (0.0-2.0); EOS # 0.3 K/uL (0.0-0.7); HEMATOCRIT 31.1 % (34.0-47.0); LYMPH # 1.7 K/uL (1.0-4.3); LYMPH % 11.5 % (20.0-40.0); MEAN CELL VOLUME 87.6 fL (81.0-99.0); MEAN CORPUSCULAR HEMOGLOBIN 28.6 pg (27.0-31.0); MEAN CORPUSCULAR HGB CONC 32.7 g/dL (33.0-37.0); MEAN PLATELET VOLUME 8.4 fL (7.2-11.7); NRBC % 0.1 % (0.0-2.0); PLATELET COUNT 287 K/uL (130-400); RED CELL DISTRIBUTION WIDTH 15.2 % (11.5-14.5); WHITE BLOOD COUNT 14.5 K/uL (4.8-10.8)
[2017-09-25 04:51] LABS: CHLORIDE 98 mmol/L (98-107); SODIUM 132 mmol/L (132-148)
[2017-09-25 04:53] LABS: ALB/GLOB RATIO 0.7 (1.0-2.1); AST/SGOT 32 U/L (14-36); BILIRUBIN,TOTAL 1.1 mg/dL (0.2-1.3); CARBON DIOXIDE 31 mmol/L (22-30); GFR AFRICAN-AMERICAN > 60; TOTAL PROTEIN 7.2 g/dL (6.3-8.3)
[2017-09-25 04:54] LABS: ALKALINE PHOSPHATASE 107 U/L (38-126); ALT/SGPT 26 U/L (9-52); CALCIUM 9.2 mg/dl (8.6-10.4); GLUCOSE,RANDOM 87 mg/dL (65-105); MAGNESIUM 1.6 mg/dL (1.6-2.3); PHOSPHOROUS 4.5 mg/dL (2.5-4.5)
[2017-09-25 05:04] LABS: BLOOD UREA NITROGEN 2 mg/dL (7-17); POTASSIUM 4.3 mmol/L (3.6-5.2)
[2017-09-25] MEDS: Vancomycin 1 gm/NS 200 ml 1 GM/200 ML BAG IVPB SCH ×3 (05:16→21:39)
[2017-09-25 05:40] LABS: ABG ALLEN TEST POS; ABG MECHANICAL RATE 15; ARTERIAL BLOOD GAS MODE PRVC; ARTERIAL BLOOD HGB O2 SAT 96.4 % (95.0-98.0); ATERIAL BLOOD GAS PEEP 5; CARBOXYHEMOGLOBIN 1.7 % (0.5-1.5); DRAW SITE LR; HHB 0.5 % (0.0-5.0); METHEMOGLOBIN 1.4 % (0.0-3.0)
[2017-09-25 06:22] LABS: EOSINOPHIL 1 % (0-4); METAMYELOCYTE 1 % (0-0); MYELOCYTE 1 % (0-0); NEUTROPHIL 82 % (50-75); TOTAL CELLS COUNTED 100
[2017-09-25] MEDS: Propofol 10 mg/ml 1,000 MG/100 ML VIAL IV PRN ×2 (06:22→18:26)
[2017-09-25 06:23] LABS: LARGE PLATELETS PRESENT
[2017-09-25] MEDS: Meropenem 1 GM in Sodium Chloride 0.9% 100 ML IVPB SCH ×2 (06:24→13:35)
[2017-09-25] MEDS: Sodium Chloride 0.9% 1,000 ML IV SCH ×2 (09:19→22:35)
[2017-09-25] MEDS: Thiamine 100 mg/ml Inj IV SCH (09:25)
[2017-09-25] MEDS: Fluconazole IV 200mg/100 ml NS 100 ML IVPB SCH (10:13)
--- NOTE | 2017-09-25 10:29 | CP.PCM.PN ---
Subjective - Date & Time of Evaluation Date of Evaluation: 09/25/17 Time of Evaluation: 10:20 - Subjective Subjective: Unresponsive. Objective - Vital Signs/Intake and Output Vital Signs (last 24 hours): Temp Pulse Resp BP Pulse Ox 98.3 F 120 H 28 H 120/97 H 93 L 09/25/17 04:00 09/25/17 07:09 09/25/17 07:09 09/25/17 07:09 09/25/17 07:09 Intake and Output: 09/25/17 09/25/17 06:59 18:59 Intake Total 1961 90 Output Total 585 40 Balance 1376 50 - Medications Medications: Current Medications Acetaminophen (Tylenol 650mg/20.3ml Solution Ud) 650 mg NG Q6 PRN PRN Reason: Temperature Last Admin: 09/21/17 07:17 Dose: 650 mg Artificial Tears (Lacri-Lube) 1 gm OS Q6H PRN PRN Reason: Sedation Last Admin: 09/06/17 20:10 Dose: 1 gm Diltiazem HCl (Cardizem) 60 mg PO Q6H [facility] Famotidine (Pepcid) 20 mg IVP Q12 [facility] Last Admin: 09/25/17 09:23 Dose: 20 mg Heparin Sodium (Porcine) (Heparin) 5,000 units SC Q12 [facility] Last Admin: 09/25/17 09:22 Dose: 5,000 units Levetiracetam 1,000 mg/ (Dextrose) 110 mls @ 440 mls/hr IVPB Q12H [facility] Last Admin: 09/25/17 06:25 Dose: 440 mls/hr Fluconazole (Diflucan Iv 200 Mg/100 Ml Ns) 100 mls @ 100 mls/hr IVPB DAILY [facility] Last Admin: 09/25/17 10:13 Dose: 100 mls/hr Propofol (Diprivan) 1,000 mg in 100 mls @ 4.998 mls/hr IV .Q20H1M PRN; Protocol ; 12.4 MCG/KG/MIN PRN Reason: TITRATE PER MD ORDER Last Admin: 09/25/17 06:22 Dose: 20 mcg/kg/min, 8.061 mls/hr Vancomycin/Sodium Chloride (Vancomycin 1 Gm/Ns 200 Ml) 1 gm in 200 mls @ 133.333 mls/hr IVPB Q8H [facility] Stop: 09/26/17 21:01 Last Admin: 09/25/17 05:16 Dose: 133.333 mls/hr Diltiazem HCl 125 mg/ Dextrose 125 mls @ 15 mls/hr IV .Q8H20M PRN; 15 MG/HR PRN Reason: Protocol Last Admin: 09/24/17 16:36 Dose: 5 mg/hr, 5 mls/hr Sodium Chloride (Sodium Chloride 0.9%) 1,000 mls @ 75 mls/hr IV .[id number] [facility] Last Admin: 09/25/17 09:19 Dose: 75 mls/hr Meropenem 1 gm/ Sodium (Chloride) 100 mls @ 100 mls/hr IVPB Q8 [facility] Last Admin: 09/25/17 06:24 Dose: 100 mls/hr Metoprolol Tartrate (Lopressor) 25 mg PO Q8H [facility] Last Admin: 09/25/17 04:50 Dose: Not Given Scopolamine (Transderm-Scop) 1 patch TD Q3D [facility] Last Admin: 09/23/17 22:35 Dose: 1 patch Thiamine HCl (Vitamin B1 Inj) 100 mg IV DAILY [facility] Last Admin: 09/25/17 09:25 Dose: 100 mg - Labs Labs: 09/25/17 04:37 09/25/17 04:37 PT 16.9 SECONDS (9.7-12.2) H 09/18/17 14:01 INR 1.5 09/18/17 14:01 APTT 33 SECONDS (21-34) 09/18/17 14:01 - Constitutional Appears: In Acute Distress - Head Exam Head Exam: ATRAUMATIC, NORMAL INSPECTION, NORMOCEPHALIC - Eye Exam Pupil Exam: Fixed - ENT Exam ENT Exam: Mucous Membranes Dry Additional comments: ETT - Neck Exam Additional comments: S/P tracheoctomy - Respiratory Exam Additional comments: On MV - Cardiovascular Exam Cardiovascular Exam: Tachycardia - GI/Abdominal Exam GI & Abdominal Exam: Diminished Bowel Sounds - Rectal Exam Rectal Exam: Deferred - Extremities Exam Extremities Exam: Pedal Edema - Back Exam Back Exam: NORMAL INSPECTION - Neurological Exam Neurological Exam: Motor Sensory Deficit Neuro motor strength exam: Left Upper Extremity: 0, Right Upper Extremity: 0, Left Lower Extremity: 0, Right Lower Extremity: 0 - Skin Skin Exam: Pallor Assessment and Plan - Assessment and Plan (Free Text) Assessment: Patient remains unresponsive to stimuli with GCS of 3 on full life support. Condition is seen as terminal . The daughter had debiting for long time on plan of care. I was informed by Surgical Specialist Cheri that yesterday patient's daughter had decided on comfort care only and removal of life support. In phone conversation this morning with the daughter she confirmed her intention to precede with comfort care only and was to come over on , on her day off. I did inform her that she should bring her immediate family with her, including her grandmother as we will have to discuss and finalize goals of care discussion prior to removal of life support. She agreed. This was shared with Doctor Fagan and Doctor Romeo. Impression * This is terminally ill lady with anoxic brain injury * The 19 yo daughter is advocating for the patient and is having exceptionally difficult time deciding on goals of care * The daughter came to realize the futility of further care and agreed on comfort care only beginning this when her and family will come in Suggestion * Would hold on with XL trach insertion as planned until * Agree with terminal extubation
--- NOTE | 2017-09-25 10:38 | CP.PCM.PN ---
Subjective - Date & Time of Evaluation Date of Evaluation: 09/25/17 Time of Evaluation: 10:20 - Subjective Subjective: Progress note dictated #[id number] Objective - Vital Signs/Intake and Output Vital Signs (last 24 hours): Temp Pulse Resp BP Pulse Ox 98.3 F 120 H 28 H 120/97 H 93 L 09/25/17 04:00 09/25/17 07:09 09/25/17 07:09 09/25/17 07:09 09/25/17 07:09 Intake and Output: 09/25/17 09/25/17 06:59 18:59 Intake Total 1961 90 Output Total 585 40 Balance 1376 50 - Medications Medications: Current Medications Acetaminophen (Tylenol 650mg/20.3ml Solution Ud) 650 mg NG Q6 PRN PRN Reason: Temperature Last Admin: 09/21/17 07:17 Dose: 650 mg Artificial Tears (Lacri-Lube) 1 gm OS Q6H PRN PRN Reason: Sedation Last Admin: 09/06/17 20:10 Dose: 1 gm Diltiazem HCl (Cardizem) 60 mg PO Q6H [facility] Famotidine (Pepcid) 20 mg IVP Q12 [facility] Last Admin: 09/25/17 09:23 Dose: 20 mg Heparin Sodium (Porcine) (Heparin) 5,000 units SC Q12 [facility] Last Admin: 09/25/17 09:22 Dose: 5,000 units Levetiracetam 1,000 mg/ (Dextrose) 110 mls @ 440 mls/hr IVPB Q12H [facility] Last Admin: 09/25/17 06:25 Dose: 440 mls/hr Fluconazole (Diflucan Iv 200 Mg/100 Ml Ns) 100 mls @ 100 mls/hr IVPB DAILY [facility] Last Admin: 09/25/17 10:13 Dose: 100 mls/hr Propofol (Diprivan) 1,000 mg in 100 mls @ 4.998 mls/hr IV .Q20H1M PRN; Protocol ; 12.4 MCG/KG/MIN PRN Reason: TITRATE PER MD ORDER Last Admin: 09/25/17 06:22 Dose: 20 mcg/kg/min, 8.061 mls/hr Vancomycin/Sodium Chloride (Vancomycin 1 Gm/Ns 200 Ml) 1 gm in 200 mls @ 133.333 mls/hr IVPB Q8H [facility] Stop: 09/26/17 21:01 Last Admin: 09/25/17 05:16 Dose: 133.333 mls/hr Diltiazem HCl 125 mg/ Dextrose 125 mls @ 15 mls/hr IV .Q8H20M PRN; 15 MG/HR PRN Reason: Protocol Last Admin: 09/24/17 16:36 Dose: 5 mg/hr, 5 mls/hr Sodium Chloride (Sodium Chloride 0.9%) 1,000 mls @ 75 mls/hr IV .[id number] [facility] Last Admin: 09/25/17 09:19 Dose: 75 mls/hr Meropenem 1 gm/ Sodium (Chloride) 100 mls @ 100 mls/hr IVPB Q8 [facility] Last Admin: 09/25/17 06:24 Dose: 100 mls/hr Metoprolol Tartrate (Lopressor) 25 mg PO Q8H [facility] Last Admin: 09/25/17 04:50 Dose: Not Given Scopolamine (Transderm-Scop) 1 patch TD Q3D [facility] Last Admin: 09/23/17 22:35 Dose: 1 patch Thiamine HCl (Vitamin B1 Inj) 100 mg IV DAILY [facility] Last Admin: 09/25/17 09:25 Dose: 100 mg - Labs Labs: 09/25/17 04:37 09/25/17 04:37 PT 16.9 SECONDS (9.7-12.2) H 09/18/17 14:01 INR 1.5 09/18/17 14:01 APTT 33 SECONDS (21-34) 09/18/17 14:01
--- NOTE | 2017-09-25 11:07 | CARD ---
APPROVED REPORT EKG Measurement Heart [id number] <Conclusion> Sinus tachycardia Otherwise normal ECG
--- NOTE | 2017-09-25 11:15 | CP.PCM.CON ---
History of Present Illness - History of Present Illness History of Present Illness: 36 year old female with a history of ethanol abuse with chronic pancreatitis who was resuscitated after an anoxic event. The patient has remained comatose with a GCS of 3, is unresponsive to painful stimuli. The daughter has agreed to comfort care measures only and will come today for terminal extubation. Past Patient History - Infectious Disease Hx of Infectious Diseases: None - Past Medical History & Family History Past Medical History?: Yes - Past Social History Smoking Status: Never Smoked - CARDIAC Hx Cardiac Disorders: No Other/Comment: As per family member : cardiac history of heart going "Fast" - PULMONARY Hx Pneumonia: Yes Other/Comment: smoker - NEUROLOGICAL Hx Neurological Disorder: No - HEENT Hx HEENT Problems: No - RENAL Hx Chronic Kidney Disease: No - ENDOCRINE/METABOLIC Hx Endocrine Disorders: No - HEMATOLOGICAL/ONCOLOGICAL Hx Anemia: Yes - INTEGUMENTARY Hx Dermatological Problems: Yes (HAS MULTIPLE HEALED OPEN LESION TO UPPER ARM, DARKENED SKIN DISCOLOR LLE) Hx Eczema: Yes Other/Comment: H/O OF HAVING HEAD LICE - MUSCULOSKELETAL/RHEUMATOLOGICAL Hx Musculoskeletal Disorders: No Hx Falls: Yes Hx Unsteady Gait: Yes - GASTROINTESTINAL Hx Gastrointestinal Disorders: No (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) HX Swallowing Problems: Yes (SORE THROAT 9-6-14) - GENITOURINARY/GYNECOLOGICAL Hx Genitourinary Disorders: Yes (6 ABORTIONS,3 CHILDREN ,H/O OF C SECTIONS X3) Other/Comment: MENORRHAGIA - PSYCHIATRIC Hx Depression: Yes Hx Substance Use: No - SURGICAL HISTORY Hx Section: Yes - ANESTHESIA Hx Anesthesia: Yes Hx Anesthesia Reactions: No Hx Malignant Hyperthermia: No Meds Allergies/Adverse Reactions: Allergies Allergy/AdvReac Type Severity Reaction Status Date / Time PORK Allergy NAUSEA Verified 01/05/17 11:15 tomato Allergy NAUSEA Verified 01/05/17 11:17 wheat Allergy NAUSEA Verified 01/05/17 11:16 - Medications Medications: Current Medications Acetaminophen (Tylenol 650mg/20.3ml Solution Ud) 650 mg NG Q6 PRN PRN Reason: Temperature Last Admin: 09/21/17 07:17 Dose: 650 mg Artificial Tears (Lacri-Lube) 1 gm OS Q6H PRN PRN Reason: Sedation Last Admin: 09/06/17 20:10 Dose: 1 gm Diltiazem HCl (Cardizem) 60 mg PO Q6H REPLACED BY [facility] Famotidine (Pepcid) 20 mg IVP Q12 REPLACED BY [facility] Last Admin: 09/25/17 09:23 Dose: 20 mg Heparin Sodium (Porcine) (Heparin) 5,000 units SC Q12 REPLACED BY [facility] Last Admin: 09/25/17 09:22 Dose: 5,000 units Levetiracetam 1,000 mg/ (Dextrose) 110 mls @ 440 mls/hr IVPB Q12H REPLACED BY [facility] Last Admin: 09/25/17 06:25 Dose: 440 mls/hr Fluconazole (Diflucan Iv 200 Mg/100 Ml Ns) 100 mls @ 100 mls/hr IVPB DAILY REPLACED BY [facility] Last Admin: 09/25/17 10:13 Dose: 100 mls/hr Propofol (Diprivan) 1,000 mg in 100 mls @ 4.998 mls/hr IV .Q20H1M PRN; Protocol ; 12.4 MCG/KG/MIN PRN Reason: TITRATE PER MD ORDER Last Admin: 09/25/17 06:22 Dose: 20 mcg/kg/min, 8.061 mls/hr Vancomycin/Sodium Chloride (Vancomycin 1 Gm/Ns 200 Ml) 1 gm in 200 mls @ 133.333 mls/hr IVPB Q8H REPLACED BY [facility] Stop: 09/26/17 21:01 Last Admin: 09/25/17 05:16 Dose: 133.333 mls/hr Diltiazem HCl 125 mg/ Dextrose 125 mls @ 15 mls/hr IV .Q8H20M PRN; 15 MG/HR PRN Reason: Protocol Last Admin: 09/24/17 16:36 Dose: 5 mg/hr, 5 mls/hr Sodium Chloride (Sodium Chloride 0.9%) 1,000 mls @ 75 mls/hr IV .[id number] REPLACED BY [facility] Last Admin: 09/25/17 09:19 Dose: 75 mls/hr Meropenem 1 gm/ Sodium (Chloride) 100 mls @ 100 mls/hr IVPB Q8 REPLACED BY [facility] Last Admin: 09/25/17 06:24 Dose: 100 mls/hr Metoprolol Tartrate (Lopressor) 25 mg PO Q8H REPLACED BY [facility] Last Admin: 09/25/17 04:50 Dose: Not Given Scopolamine (Transderm-Scop) 1 patch TD Q3D REPLACED BY [facility] Last Admin: 09/23/17 22:35 Dose: 1 patch Thiamine HCl (Vitamin B1 Inj) 100 mg IV DAILY [facility] Last Admin: 09/25/17 09:25 Dose: 100 mg Results - Vital Signs Recent Vital Signs: Last Vital Signs Temp 98.3 F 09/25/17 04:00 Pulse 120 H 09/25/17 07:09 Resp 28 H 09/25/17 07:09 BP 120/97 H 09/25/17 07:09 Pulse Ox 93 L 09/25/17 07:09 - Labs Result Diagrams: 09/25/17 04:37 09/25/17 04:37 Labs: Laboratory Results - last 24 hr 09/24/17 09/24/17 09/25/17 11:15 17:56 00:03 WBC RBC Hgb Hct MCV MCH MCHC RDW Plt Count MPV Neut % (Auto) Lymph % (Auto) [place] % (Auto) Eos % (Auto) Baso % (Auto) Neut # Lymph # [place] # Eos # Baso # Neutrophils % (Manual) Band Neutrophils % Lymphocytes % (Manual) Monocytes % (Manual) Eosinophils % (Manual) Metamyelocytes % Myelocytes % Platelet Estimate Large Platelets Poikilocytosis (manual Anisocytosis (manual) Puncture Site pCO2 pO2 HCO3 ABG pH ABG Total CO2 ABG O2 Saturation ABG Base Excess ABG Hemoglobin ABG Carboxyhemoglobin POC ABG HHb (Measured) ABG Methemoglobin Stephen Test A-a O2 Difference Respiratory Index Hgb O2 Saturation Vent Mode Mechanical Rate FiO2 Tidal Volume PEEP Sodium Potassium Chloride Carbon Dioxide Anion Gap BUN Creatinine Est GFR ( Amer) Est GFR (Non-Af Amer) POC Glucose (mg/dL) 101 116 H 95 Random Glucose Calcium Phosphorus Magnesium Total Bilirubin AST ALT Alkaline Phosphatase Total Protein Albumin Globulin Albumin/Globulin Ratio Vancomycin Trough 09/25/17 09/25/17 09/25/17 04:37 04:37 04:37 WBC 14.5 H RBC 3.55 L Hgb 10.2 L Hct 31.1 L MCV 87.6 MCH 28.6 MCHC 32.7 L RDW 15.2 H Plt Count 287 MPV 8.4 Neut % (Auto) 78.7 H Lymph % (Auto) 11.5 L [place] % (Auto) 7.0 Eos % (Auto) 2.0 Baso % (Auto) 0.8 Neut # 11.4 H Lymph # 1.7 Mesa # 1.0 H Eos # 0.3 Baso # 0.1 Neutrophils % (Manual) 82 H Band Neutrophils % 1 Lymphocytes % (Manual) 8 L Monocytes % (Manual) 6 Eosinophils % (Manual) 1 Metamyelocytes % 1 H Myelocytes % 1 H Platelet Estimate Normal Large Platelets Present Poikilocytosis (manual Slight Anisocytosis (manual) Slight Puncture Site pCO2 pO2 HCO3 ABG pH ABG Total CO2 ABG O2 Saturation ABG Base Excess ABG Hemoglobin ABG Carboxyhemoglobin POC ABG HHb (Measured) ABG Methemoglobin Stephen Test A-a O2 Difference Respiratory Index Hgb O2 Saturation Vent Mode Mechanical Rate FiO2 Tidal Volume PEEP Sodium 132 Potassium 4.3 Chloride 98 Carbon Dioxide 31 H Anion Gap 7 L BUN 2 L Creatinine 0.2 L Est GFR ( Amer) > 60 Est GFR (Non-Af Amer) > 60 POC Glucose (mg/dL) Random Glucose 87 Calcium 9.2 Phosphorus 4.5 Magnesium 1.6 Total Bilirubin 1.1 AST 32 ALT 26 Alkaline Phosphatase 107 Total Protein 7.2 Albumin 2.8 L Globulin 4.3 H Albumin/Globulin Ratio 0.7 L Vancomycin Trough 6.0 09/25/17 05:30 WBC RBC Hgb Hct MCV MCH MCHC RDW Plt Count MPV Neut % (Auto) Lymph % (Auto) Mes[place] % (Auto) Eos % (Auto) Baso % (Auto) Neut # Lymph # [place] # Eos # Baso # Neutrophils % (Manual) Band Neutrophils % Lymphocytes % (Manual) Monocytes % (Manual) Eosinophils % (Manual) Metamyelocytes % Myelocytes % Platelet Estimate Large Platelets Poikilocytosis (manual Anisocytosis (manual) Puncture Site Lr pCO2 34 L pO2 190 H HCO3 30.4 H ABG pH 7.55 H ABG Total CO2 30.7 H ABG O2 Saturation 99.5 H ABG Base Excess 7.0 H ABG Hemoglobin 9.5 L ABG Carboxyhemoglobin 1.7 H POC ABG HHb (Measured) 0.5 ABG Methemoglobin 1.4 Stephen Test Pos A-a O2 Difference 124.0 Respiratory Index 0.7 Hgb O2 Saturation 96.4 Vent Mode Prvc Mechanical Rate 15 FiO2 50.0 Tidal Volume 400 PEEP 5 Sodium Potassium Chloride Carbon Dioxide Anion Gap BUN Creatinine Est GFR ( Amer) Est GFR (Non-Af Amer) POC Glucose (mg/dL) Random Glucose Calcium Phosphorus Magnesium Total Bilirubin AST ALT Alkaline Phosphatase Total Protein Albumin Globulin Albumin/Globulin Ratio Vancomycin Trough Assessment & Plan (1) Anoxic encephalopathy Assessment and Plan: There appears to be no bioethical conflict in this case. Per hospital policy, if the next of kin agrees to terminal extubation, comfort care measures may be instituted and terminal extubation performed. Status: Acute (2) Cardiac arrest Status: Acute
--- NOTE | 2017-09-25 12:02 | CP.PCM.PN ---
Subjective - Date & Time of Evaluation Date of Evaluation: 09/25/17 Time of Evaluation: 08:00 - Subjective Subjective: events noted poor prognosis IV rx renewed Objective - Vital Signs/Intake and Output Vital Signs (last 24 hours): Temp Pulse Resp BP Pulse Ox 98.6 F 121 H 21 112/79 94 L 09/25/17 08:00 09/25/17 11:09 09/25/17 11:09 09/25/17 11:09 09/25/17 11:09 Intake and Output: 09/25/17 09/25/17 06:59 18:59 Intake Total 1961 522 Output Total 585 300 Balance 1376 222 - Medications Medications: Current Medications Acetaminophen (Tylenol 650mg/20.3ml Solution Ud) 650 mg NG Q6 PRN PRN Reason: Temperature Last Admin: 09/21/17 07:17 Dose: 650 mg Artificial Tears (Lacri-Lube) 1 gm OS Q6H PRN PRN Reason: Sedation Last Admin: 09/06/17 20:10 Dose: 1 gm Diltiazem HCl (Cardizem) 60 mg PO Q6H [facility] Famotidine (Pepcid) 20 mg IVP Q12 [facility] Last Admin: 09/25/17 09:23 Dose: 20 mg Heparin Sodium (Porcine) (Heparin) 5,000 units SC Q12 [facility] Last Admin: 09/25/17 09:22 Dose: 5,000 units Levetiracetam 1,000 mg/ (Dextrose) 110 mls @ 440 mls/hr IVPB Q12H [facility] Last Admin: 09/25/17 06:25 Dose: 440 mls/hr Fluconazole (Diflucan Iv 200 Mg/100 Ml Ns) 100 mls @ 100 mls/hr IVPB DAILY [facility] Last Admin: 09/25/17 10:13 Dose: 100 mls/hr Propofol (Diprivan) 1,000 mg in 100 mls @ 4.998 mls/hr IV .Q20H1M PRN; Protocol ; 12.4 MCG/KG/MIN PRN Reason: TITRATE PER MD ORDER Last Admin: 09/25/17 06:22 Dose: 20 mcg/kg/min, 8.061 mls/hr Vancomycin/Sodium Chloride (Vancomycin 1 Gm/Ns 200 Ml) 1 gm in 200 mls @ 133.333 mls/hr IVPB Q8H [facility] Stop: 09/26/17 21:01 Last Admin: 09/25/17 05:16 Dose: 133.333 mls/hr Diltiazem HCl 125 mg/ Dextrose 125 mls @ 15 mls/hr IV .Q8H20M PRN; 15 MG/HR PRN Reason: Protocol Last Admin: 09/24/17 16:36 Dose: 5 mg/hr, 5 mls/hr Sodium Chloride (Sodium Chloride 0.9%) 1,000 mls @ 75 mls/hr IV .[id number] [facility] Last Admin: 09/25/17 09:19 Dose: 75 mls/hr Meropenem 1 gm/ Sodium (Chloride) 100 mls @ 100 mls/hr IVPB Q8 [facility] Last Admin: 09/25/17 06:24 Dose: 100 mls/hr Metoprolol Tartrate (Lopressor) 25 mg PO Q8H [facility] Last Admin: 09/25/17 04:50 Dose: Not Given Scopolamine (Transderm-Scop) 1 patch TD Q3D [facility] Last Admin: 09/23/17 22:35 Dose: 1 patch Thiamine HCl (Vitamin B1 Inj) 100 mg IV DAILY [facility] Last Admin: 09/25/17 09:25 Dose: 100 mg - Labs Labs: 09/25/17 04:37 09/25/17 04:37 PT 16.9 SECONDS (9.7-12.2) H 09/18/17 14:01 INR 1.5 09/18/17 14:01 APTT 33 SECONDS (21-34) 09/18/17 14:01 - Constitutional Appears: Confused - Head Exam Head Exam: NORMOCEPHALIC - Eye Exam Eye Exam: absent: Scleral icterus - ENT Exam ENT Exam: Mucous Membranes Dry - Neck Exam Neck Exam: absent: Lymphadenopathy - Respiratory Exam Respiratory Exam: Decreased Breath Sounds - Cardiovascular Exam Cardiovascular Exam: REGULAR RHYTHM - GI/Abdominal Exam GI & Abdominal Exam: Distended, Soft Assessment and Plan (1) Anemia Status: Acute (2) Anoxic encephalopathy Status: Acute (3) Cardiac arrest Status: Acute (4) Hypokalemia Status: Acute (5) Alcohol abuse Status: Acute (6) Chest pain Status: Acute
--- NOTE | 2017-09-25 12:59 | CP.CCUPN ---
<Liset Massey - Last Filed: 09/25/17 13:27> CCU Subjective - Physician Review Subjective (Free Text): Patient seen and examined at bedside. Patient currently intubated. ROS unobtainable due to patient's current clinical status. CCU Objective - Vital Signs / Intake & Output Vital Signs (Last 4 hours): Vital Signs Pulse Resp BP Pulse Ox 09/25/17 11:09 121 H 21 112/79 94 L 09/25/17 10:09 120 H 20 112/75 100 09/25/17 09:10 115 H 19 106/67 100 Intake and Output (Last 8hrs): Intake & Output 09/24/17 09/25/17 09/25/17 22:59 06:59 14:59 Intake Total 1124 1324 632 Output Total 575 370 300 Balance 549 954 332 Intake: IV 150 100 110 Intake, IV Amount 829 1104 447 Right Distal Port 64 64 32 Internal Jugular Right Proximal Port 40 40 15 Internal Jugular Right Wrist 300 400 left hand 725 700 Tube Feeding 120 120 75 Other 25 Output: Urine 575 370 300 Urethral (Andino) 575 370 300 Other: # Bowel Movements 0 - Physical Exam Head: Positive for: Atraumatic, Normocephalic Pupils: Positive for: Sluggish Extroacular Muscles: Negative for: EOMI Mouth: Positive for: Moist Mucous Membranes Respiratory/Chest: Positive for: Good Air Exchange, Rhonchi, Other ( subcutaneous emphysema ) Cardiovascular: Positive for: Normal S1, S2, Tachycardic Abdomen: Positive for: Distention, Normal Bowel Sounds. Negative for: Tenderness Upper Extremity: Negative for: Edema Lower Extremity: Negative for: Edema Neurological: Negative for: GCS=15, CN II-XII Intact, Speech Normal Skin: Positive for: Normal Color Psychiatric: Negative for: Alert, Oriented x 3 - Medications Active Medications: Active Medications Generic Name Dose Route Start Last Admin Trade Name Freq PRN Reason Stop Dose Admin Acetaminophen 650 mg 09/15/17 03:51 09/21/17 07:17 Tylenol 650mg/20.3ml Solution Ud NG 650 mg Q6 PRN Administration Temperature Artificial Tears 1 gm 08/31/17 12:00 09/06/17 20:10 Lacri-Lube OS 1 gm Q6H PRN Administration Sedation Diltiazem HCl 60 mg 09/25/17 12:00 09/25/17 12:50 Cardizem PO 60 mg Q6H EUSEBIO Administration Famotidine 20 mg 09/21/17 10:45 09/25/17 09:23 Pepcid IVP 20 mg Q12 EUSEBIO Administration Heparin Sodium (Porcine) 5,000 units 09/14/17 12:30 09/25/17 09:22 Heparin SC 5,000 units Q12 EUSEBIO Administration Levetiracetam 1,000 mg/ 110 mls @ 440 mls/hr 09/10/17 06:00 09/25/17 06:25 Dextrose IVPB 440 mls/hr Q12H EUSEBIO Administration Fluconazole 100 mls @ 100 mls/hr 09/17/17 10:30 09/25/17 10:13 Diflucan Iv 200 Mg/100 Ml Ns IVPB 100 mls/hr DAILY EUSEBIO Administration Propofol 1,000 mg in 100 mls @ 4.998 mls/hr 09/18/17 13:13 09/25/17 06:22 Diprivan IV 20 mcg/kg/min .Q20H1M PRN 8.061 mls/hr TITRATE PER MD ORDER Administration Protocol 12.4 MCG/KG/MIN Vancomycin/Sodium Chloride 1 gm in 200 mls @ 133.333 mls/hr 09/21/17 21:00 12:50 Vancomycin 1 Gm/Ns 200 Ml IVPB 09/26/17 21:01 133.333 mls/hr Q8H EUSEBIO Administration Diltiazem HCl 125 mg/ Dextrose 125 mls @ 15 mls/hr 09/22/17 08:45 09/25/17 11 :00 IV 0 mg/hr .Q8H20M PRN 0 mls/hr Protocol Titration 15 MG/HR Sodium Chloride 1,000 mls @ 75 mls/hr 09/22/17 13:17 09/25/17 09:19 Sodium Chloride 0.9% IV 75 mls/hr .[id number] EUSEBIO Administration Meropenem 1 gm/ Sodium 100 mls @ 100 mls/hr 09/24/17 22:00 09/25/17 06:24 Chloride IVPB 100 mls/hr Q8 EUSEBIO Administration Metoprolol Tartrate 25 mg 09/13/17 13:00 09/25/17 04:50 Lopressor PO Not Given Q8H EUSEBIO Scopolamine 1 patch 09/14/17 22:00 09/23/17 22:35 Transderm-Scop TD 1 patch Q3D EUSEBIO Administration Thiamine HCl 100 mg 08/30/17 22:15 09/25/17 09:25 Vitamin B1 Inj IV 100 mg DAILY EUSEBIO Administration - Patient Studies Lab Studies: Microbiology Studies 09/19/17 20:25 - Final Blood Transfusion Bag - Final NO GROWTH AFTER 5 DAYS 09/22/17 11:00 Blood Culture - Preliminary Blood-Venous NO GROWTH AFTER 48 HOURS 09/22/17 11:30 Blood Culture - Preliminary Blood-Venous NO GROWTH AFTER 48 HOURS Lab Studies 09/25/17 09/25/17 09/25/17 Range/Units 11:22 05:30 04:37 WBC (4.8-10.8) K/uL RBC (3.80-5.20) Mil/uL Hgb (11.0-16.0) g/dL Hct (34.0-47.0) % MCV (81.0-99.0) fL MCH (27.0-31.0) pg MCHC (33.0-37.0) g/dL RDW (11.5-14.5) % Plt Count (130-400) K/uL MPV (7.2-11.7) fL Neut % (Auto) (50.0-75.0) % Lymph % (Auto) (20.0-40.0) % Livingston % (Auto) (0.0-10.0) % Eos % (Auto) (0.0-4.0) % Baso % (Auto) (0.0-2.0) % Neut # (1.8-7.0) K/uL Lymph # (1.0-4.3) K/uL Livingston # (0.0-0.8) K/uL Eos # (0.0-0.7) K/uL Baso # (0.0-0.2) K/uL Neutrophils % (Manual) (50-75) % Band Neutrophils % (0-2) % Lymphocytes % (Manual) (20-40) % Monocytes % (Manual) (0-10) % Eosinophils % (Manual) (0-4) % Metamyelocytes % (0-0) % Myelocytes % (0-0) % Platelet Estimate (NORMAL) Large Platelets Poikilocytosis (manual Anisocytosis (manual) Puncture Site Lr pCO2 34 L (35-45) mm/Hg pO2 190 H (80-100) mm/Hg HCO3 30.4 H (21-28) mmol/L ABG pH 7.55 H (7.35-7.45) ABG Total CO2 30.7 H (22-28) mmol/L ABG O2 Saturation 99.5 H (95-98) % ABG Base Excess 7.0 H (-2.0-3.0) mmol/L ABG Hemoglobin 9.5 L (11.7-17.4) g/dL ABG Carboxyhemoglobin 1.7 H (0.5-1.5) % POC ABG HHb (Measured) 0.5 (0.0-5.0) % ABG Methemoglobin 1.4 (0.0-3.0) % Stephen Test Pos A-a O2 Difference 124.0 mm/Hg Respiratory Index 0.7 Hgb O2 Saturation 96.4 (95.0-98.0) % Vent Mode Prvc Mechanical Rate 15 FiO2 50.0 % Tidal Volume 400 PEEP 5 Sodium (132-148) mmol/L Potassium (3.6-5.2) mmol/L Chloride (98-107) mmol/L Carbon Dioxide (22-30) mmol/L Anion Gap (10-20) BUN (7-17) mg/dL Creatinine (0.7-1.2) mg/dL Est GFR ( Amer) Est GFR (Non-Af Amer) POC Glucose (mg/dL) 92 (65-110) mg/dL Random Glucose (65-105) mg/dL Calcium (8.6-10.4) mg/dl Phosphorus (2.5-4.5) mg/dL Magnesium (1.6-2.3) mg/dL Total Bilirubin (0.2-1.3) mg/dL AST (14-36) U/L ALT (9-52) U/L Alkaline Phosphatase (38-126) U/L Total Protein (6.3-8.3) g/dL Albumin (3.5-5.0) g/dL Globulin (2.2-3.9) gm/dL Albumin/Globulin Ratio (1.0-2.1) Vancomycin Trough 6.0 (5.0-10.0) ug/mL 09/25/17 09/25/17 09/25/17 Range/Units 04:37 04:37 00:03 WBC 14.5 H (4.8-10.8) K/uL RBC 3.55 L (3.80-5.20) Mil/uL Hgb 10.2 L (11.0-16.0) g/dL Hct 31.1 L (34.0-47.0) % MCV 87.6 (81.0-99.0) fL MCH 28.6 (27.0-31.0) pg MCHC 32.7 L (33.0-37.0) g/dL RDW 15.2 H (11.5-14.5) % Plt Count 287 (130-400) K/uL MPV 8.4 (7.2-11.7) fL Neut % (Auto) 78.7 H (50.0-75.0) % Lymph % (Auto) 11.5 L (20.0-40.0) % Livingston % (Auto) 7.0 (0.0-10.0) % Eos % (Auto) 2.0 (0.0-4.0) % Baso % (Auto) 0.8 (0.0-2.0) % Neut # 11.4 H (1.8-7.0) K/uL Lymph # 1.7 (1.0-4.3) K/uL Livingston # 1.0 H (0.0-0.8) K/uL Eos # 0.3 (0.0-0.7) K/uL Baso # 0.1 (0.0-0.2) K/uL Neutrophils % (Manual) 82 H (50-75) % Band Neutrophils % 1 (0-2) % Lymphocytes % (Manual) 8 L (20-40) % Monocytes % (Manual) 6 (0-10) % Eosinophils % (Manual) 1 (0-4) % Metamyelocytes % 1 H (0-0) % Myelocytes % 1 H (0-0) % Platelet Estimate Normal (NORMAL) Large Platelets Present Poikilocytosis (manual Slight Anisocytosis (manual) Slight Puncture Site pCO2 (35-45) mm/Hg pO2 (80-100) mm/Hg HCO3 (21-28) mmol/L ABG pH (7.35-7.45) ABG Total CO2 (22-28) mmol/L ABG O2 Saturation (95-98) % ABG Base Excess (-2.0-3.0) mmol/L ABG Hemoglobin (11.7-17.4) g/dL ABG Carboxyhemoglobin (0.5-1.5) % POC ABG HHb (Measured) (0.0-5.0) % ABG Methemoglobin (0.0-3.0) % Stephen Test A-a O2 Difference mm/Hg Respiratory Index Hgb O2 Saturation (95.0-98.0) % Vent Mode Mechanical Rate FiO2 % Tidal Volume PEEP Sodium 132 (132-148) mmol/L Potassium 4.3 (3.6-5.2) mmol/L Chloride 98 (98-107) mmol/L Carbon Dioxide 31 H (22-30) mmol/L Anion Gap 7 L (10-20) BUN 2 L (7-17) mg/dL Creatinine 0.2 L (0.7-1.2) mg/dL Est GFR ( Amer) > 60 Est GFR (Non-Af Amer) > 60 POC Glucose (mg/dL) 95 (65-110) mg/dL Random Glucose 87 (65-105) mg/dL Calcium 9.2 (8.6-10.4) mg/dl Phosphorus 4.5 (2.5-4.5) mg/dL Magnesium 1.6 (1.6-2.3) mg/dL Total Bilirubin 1.1 (0.2-1.3) mg/dL AST 32 (14-36) U/L ALT 26 (9-52) U/L Alkaline Phosphatase 107 (38-126) U/L Total Protein 7.2 (6.3-8.3) g/dL Albumin 2.8 L (3.5-5.0) g/dL Globulin 4.3 H (2.2-3.9) gm/dL Albumin/Globulin Ratio 0.7 L (1.0-2.1) Vancomycin Trough (5.0-10.0) ug/mL 09/24/17 Range/Units 17:56 WBC (4.8-10.8) K/uL RBC (3.80-5.20) Mil/uL Hgb (11.0-16.0) g/dL Hct (34.0-47.0) % MCV (81.0-99.0) fL MCH (27.0-31.0) pg MCHC (33.0-37.0) g/dL RDW (11.5-14.5) % Plt Count (130-400) K/uL MPV (7.2-11.7) fL Neut % (Auto) (50.0-75.0) % Lymph % (Auto) (20.0-40.0) % Livingston % (Auto) (0.0-10.0) % Eos % (Auto) (0.0-4.0) % Baso % (Auto) (0.0-2.0) % Neut # (1.8-7.0) K/uL Lymph # (1.0-4.3) K/uL Livingston # (0.0-0.8) K/uL Eos # (0.0-0.7) K/uL Baso # (0.0-0.2) K/uL Neutrophils % (Manual) (50-75) % Band Neutrophils % (0-2) % Lymphocytes % (Manual) (20-40) % Monocytes % (Manual) (0-10) % Eosinophils % (Manual) (0-4) % Metamyelocytes % (0-0) % Myelocytes % (0-0) % Platelet Estimate (NORMAL) Large Platelets Poikilocytosis (manual Anisocytosis (manual) Puncture Site pCO2 (35-45) mm/Hg pO2 (80-100) mm/Hg HCO3 (21-28) mmol/L ABG pH (7.35-7.45) ABG Total CO2 (22-28) mmol/L ABG O2 Saturation (95-98) % ABG Base Excess (-2.0-3.0) mmol/L ABG Hemoglobin (11.7-17.4) g/dL ABG Carboxyhemoglobin (0.5-1.5) % POC ABG HHb (Measured) (0.0-5.0) % ABG Methemoglobin (0.0-3.0) % Stephen Test A-a O2 Difference mm/Hg Respiratory Index Hgb O2 Saturation (95.0-98.0) % Vent Mode Mechanical Rate FiO2 % Tidal Volume PEEP Sodium (132-148) mmol/L Potassium (3.6-5.2) mmol/L Chloride (98-107) mmol/L Carbon Dioxide (22-30) mmol/L Anion Gap (10-20) BUN (7-17) mg/dL Creatinine (0.7-1.2) mg/dL Est GFR ( Amer) Est GFR (Non-Af Amer) POC Glucose (mg/dL) 116 H (65-110) mg/dL Random Glucose (65-105) mg/dL Calcium (8.6-10.4) mg/dl Phosphorus (2.5-4.5) mg/dL Magnesium (1.6-2.3) mg/dL Total Bilirubin (0.2-1.3) mg/dL AST (14-36) U/L ALT (9-52) U/L Alkaline Phosphatase (38-126) U/L Total Protein (6.3-8.3) g/dL Albumin (3.5-5.0) g/dL Globulin (2.2-3.9) gm/dL Albumin/Globulin Ratio (1.0-2.1) Vancomycin Trough (5.0-10.0) ug/mL Laboratory Results - last 24 hr 09/24/17 09/25/17 09/25/17 17:56 00:03 04:37 WBC 14.5 H RBC 3.55 L Hgb 10.2 L Hct 31.1 L MCV 87.6 MCH 28.6 MCHC 32.7 L RDW 15.2 H Plt Count 287 MPV 8.4 Neut % (Auto) 78.7 H Lymph % (Auto) 11.5 L Livingston % (Auto) 7.0 Eos % (Auto) 2.0 Baso % (Auto) 0.8 Neut # 11.4 H Lymph # 1.7 Livingston # 1.0 H Eos # 0.3 Baso # 0.1 Neutrophils % (Manual) 82 H Band Neutrophils % 1 Lymphocytes % (Manual) 8 L Monocytes % (Manual) 6 Eosinophils % (Manual) 1 Metamyelocytes % 1 H Myelocytes % 1 H Platelet Estimate Normal Large Platelets Present Poikilocytosis (manual Slight Anisocytosis (manual) Slight Puncture Site pCO2 pO2 HCO3 ABG pH ABG Total CO2 ABG O2 Saturation ABG Base Excess ABG Hemoglobin ABG Carboxyhemoglobin POC ABG HHb (Measured) ABG Methemoglobin Stephen Test A-a O2 Difference Respiratory Index Hgb O2 Saturation Vent Mode Mechanical Rate FiO2 Tidal Volume PEEP Sodium Potassium Chloride Carbon Dioxide Anion Gap BUN Creatinine Est GFR ( Amer) Est GFR (Non-Af Amer) POC Glucose (mg/dL) 116 H 95 Random Glucose Calcium Phosphorus Magnesium Total Bilirubin AST ALT Alkaline Phosphatase Total Protein Albumin Globulin Albumin/Globulin Ratio Vancomycin Trough 09/25/17 09/25/17 09/25/17 04:37 04:37 05:30 WBC RBC Hgb Hct MCV MCH MCHC RDW Plt Count MPV Neut % (Auto) Lymph % (Auto) Livingston % (Auto) Eos % (Auto) Baso % (Auto) Neut # Lymph # Livingston # Eos # Baso # Neutrophils % (Manual) Band Neutrophils % Lymphocytes % (Manual) Monocytes % (Manual) Eosinophils % (Manual) Metamyelocytes % Myelocytes % Platelet Estimate Large Platelets Poikilocytosis (manual Anisocytosis (manual) Puncture Site Lr pCO2 34 L pO2 190 H HCO3 30.4 H ABG pH 7.55 H ABG Total CO2 30.7 H ABG O2 Saturation 99.5 H ABG Base Excess 7.0 H ABG Hemoglobin 9.5 L ABG Carboxyhemoglobin 1.7 H POC ABG HHb (Measured) 0.5 ABG Methemoglobin 1.4 Stephen Test Pos A-a O2 Difference 124.0 Respiratory Index 0.7 Hgb O2 Saturation 96.4 Vent Mode Prvc Mechanical Rate 15 FiO2 50.0 Tidal Volume 400 PEEP 5 Sodium 132 Potassium 4.3 Chloride 98 Carbon Dioxide 31 H Anion Gap 7 L BUN 2 L Creatinine 0.2 L Est GFR ( Amer) > 60 Est GFR (Non-Af Amer) > 60 POC Glucose (mg/dL) Random Glucose 87 Calcium 9.2 Phosphorus 4.5 Magnesium 1.6 Total Bilirubin 1.1 AST 32 ALT 26 Alkaline Phosphatase 107 Total Protein 7.2 Albumin 2.8 L Globulin 4.3 H Albumin/Globulin Ratio 0.7 L Vancomycin Trough 6.0 09/25/17 11:22 WBC RBC Hgb Hct MCV MCH MCHC RDW Plt Count MPV Neut % (Auto) Lymph % (Auto) Livingston % (Auto) Eos % (Auto) Baso % (Auto) Neut # Lymph # Livingston # Eos # Baso # Neutrophils % (Manual) Band Neutrophils % Lymphocytes % (Manual) Monocytes % (Manual) Eosinophils % (Manual) Metamyelocytes % Myelocytes % Platelet Estimate Large Platelets Poikilocytosis (manual Anisocytosis (manual) Puncture Site pCO2 pO2 HCO3 ABG pH ABG Total CO2 ABG O2 Saturation ABG Base Excess ABG Hemoglobin ABG Carboxyhemoglobin POC ABG HHb (Measured) ABG Methemoglobin Stephen Test A-a O2 Difference Respiratory Index Hgb O2 Saturation Vent Mode Mechanical Rate FiO2 Tidal Volume PEEP Sodium Potassium Chloride Carbon Dioxide Anion Gap BUN Creatinine Est GFR ( Amer) Est GFR (Non-Af Amer) POC Glucose (mg/dL) 92 Random Glucose Calcium Phosphorus Magnesium Total Bilirubin AST ALT Alkaline Phosphatase Total Protein Albumin Globulin Albumin/Globulin Ratio Vancomycin Trough Fingerstick Blood Sugar Results: 123 Review of Systems - Review of Systems Systems not reviewed;Unavailable: Intubated Critical Care Progress Note - Nutrition Nutrition: Nutrition Category Date Time Status NPO Diet [DIET] Diets 09/18/17 Breakfast Active Assessment/Plan - Assessment and Plan (Free Text) Assessment: 36 year old female with past medical history of anemia and alcohol abuse, who was found unconscious by . EMS was called and patient was found to be in Asystole, ACLS protocol was initiated and 2 rounds of epinephrine and then ROSC. Patient was unconscious in the ED. Subsequently, patient was admitted to the ICU and hypothermia protocol was initiated. Today's Plan: Daughter has agreed to comfort care measures and plans to terminally extubate this 09/27/17 Plan: Neuro: Intubated, Acute seizures Neurologist, Dr. Pugh---> help appreciated * Management as per recommendation Medication/Management: * Keppra 1000mg IV Q12H * Propofol (Titratable) Imaging: * EEG (08/31/17): globally abnormal EEG because of persistent spike and wave activities consistent with status epilepticus. Please correlate the findings with neurological and radiological studies * Cerebral blood flow (09/03/17): does not conform to nuclear medicine diagnosis of brain . There is a faint cerebral flow, the study is considered technically suboptimal for reasons related to technique and poor visualization of carotid arteries. * CT head w/o contrast (09/03/17): No mass effect or edema. No atrophy or chronic microvascular. * EEG (09/06): status epilepticus * head CT (09/12/17): asymmetric low attenuation in the L basal ganglia could represent anoxic injury. Mild global parenchymal volume loss, advanced for the patient's age. Cardio: Cardiopulmonary Arrest, tachycardia Management: * Intubated * Hypothermia protocol was initiated * Lopressor 25mg po q8h * Cardizem drip started (09/17) * Cardizem 60 mg QID Pulm: Respiratory distress secondary to cardiac arrest, intubated * Intubated * sputum culture: staph * D Dimer: [id number] * CTA: no evidence of PE, bibasilar consolidation. Upper lobe interstitial infiltrates. 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 Plaza consulted, help appreciated * 09/20 CTA head and neck: extensive soft tissue air, including air in retropharyngeal space. deep soft tissue defect in the midline anterior neck soft tissues which extends from the skin surface to the anterior wall of the trachee. Cannot exclude tracheocutaneous fistula, secondary to a focal tracheal rupture or injury. This could be the cause of the soft tissue gas. An ET tube is in place. Extensive pneumomediastinum, left orbital emphysema, findings highly suspicious for diffuse left otomastoiditis. * Dr. Dockery d/c trach on 09/21 and orally intubated with cuff placement distal to site of fistula * as per Dr. Dockery patient to receive extended trach which will bypass fistula GI: Diarrhea * C. Dif negative (09/03) * repeat C. dif (09/17) negative * Dr. Hernandez consulted for PEG placement, because of TE fistula probably better to surgically placed G tube * Dr. Skinner agrees that PEG cannot be done due to TE fistula, surgical PEG to be considered * IR consulted for PEG eval, help appreciated Renal: Electrolyte imbalance Nephrology, Dr. Ramos---> Help appreciated * Management as per recommendation * electrolytes repleted as needed Heme: anemia * H/H: on 09/12 dropped to 7.3/22.5 from 8.1/24.5- patient was transfused 2 u PRBCs * H/H: 9.8/30.4 * 09/18- INR: 1.8, 2u FFP transfused and Vit K 10mg sc given * 09/19: INR: 1.5, 2 units FFP HgB dropped to 8.3 from 9.8, transfuse 1 u PRBCs * 09/24: stable H/H: 10.4/ 31.4 ID: * sputum: staph aureus * Merrem 1 gm q8h (started on 09/22) * Vancomycin 1gm q12h * f/u random vanco * 09/12: repeat cultures: urine- yeast species, blood negative * Diflucan 200mg daily * repeat sputum culture on 09/19: MRSA * repeat blood culture 09/19: no growth Psych: Alcohol abuse disorder * Thiamine 100mg IV daily Prophylaxis measures: * R IJ in place * DVT: SCDs, Heparin 5,000 units SC Q12H * GI: Protonix 40mg IV daily * tube feeds: jevity <Burton Walters S - Last Filed: 09/25/17 16:55> CCU Objective - Vital Signs / Intake & Output Vital Signs (Last 4 hours): Vital Signs Temp Pulse Resp BP Pulse Ox 09/25/17 16:09 126 H 21 111/74 100 09/25/17 16:00 99.6 F 09/25/17 15:09 122 H 19 106/74 100 09/25/17 14:09 115 H 20 110/71 100 09/25/17 13:09 130 H 23 114/74 97 Intake and Output (Last 8hrs): Intake & Output 09/25/17 09/25/17 09/25/17 06:59 14:59 22:59 Intake Total 1324 967 196 Output Total 370 600 165 Balance 954 367 31 Intake: IV 100 110 Intake, IV Amount 1104 737 166 Right Distal Port 64 56 16 Internal Jugular Right Proximal Port 40 15 Internal Jugular Right Wrist 300 666 150 left hand 700 Tube Feeding 120 120 30 Output: Urine 370 600 165 Urethral (Andino) 370 600 165 Other: # Bowel Movements 0 0 - Medications Active Medications: Active Medications Generic Name Dose Route Start Last Admin Trade Name Freq PRN Reason Stop Dose Admin Acetaminophen 650 mg 09/15/17 03:51 09/21/17 07:17 Tylenol 650mg/20.3ml Solution Ud NG 650 mg Q6 PRN Administration Temperature Artificial Tears 1 gm 08/31/17 12:00 09/06/17 20:10 Lacri-Lube OS 1 gm Q6H PRN Administration Sedation Diltiazem HCl 60 mg 09/25/17 12:00 09/25/17 12:50 Cardizem PO 60 mg Q6H EUSEBIO Administration Famotidine 20 mg 09/21/17 10:45 09/25/17 09:23 Pepcid IVP 20 mg Q12 EUSEBIO Administration Heparin Sodium (Porcine) 5,000 units 09/14/17 12:30 09/25/17 09:22 Heparin SC 5,000 units Q12 EUSEBIO Administration Levetiracetam 1,000 mg/ 110 mls @ 440 mls/hr 09/10/17 06:00 09/25/17 06:25 Dextrose IVPB 440 mls/hr Q12H EUSEBIO Administration Fluconazole 100 mls @ 100 mls/hr 09/17/17 10:30 09/25/17 10:13 Diflucan Iv 200 Mg/100 Ml Ns IVPB 100 mls/hr DAILY EUSEBIO Administration Propofol 1,000 mg in 100 mls @ 4.998 mls/hr 09/18/17 13:13 09/25/17 06:22 Diprivan IV 20 mcg/kg/min .Q20H1M PRN 8.061 mls/hr TITRATE PER MD ORDER Administration Protocol 12.4 MCG/KG/MIN Vancomycin/Sodium Chloride 1 gm in 200 mls @ 133.333 mls/hr 09/21/17 21:00 12:50 Vancomycin 1 Gm/Ns 200 Ml IVPB 09/26/17 21:01 133.333 mls/hr Q8H EUSEBIO Administration Diltiazem HCl 125 mg/ Dextrose 125 mls @ 15 mls/hr 09/22/17 08:45 09/25/17 11 :00 IV 0 mg/hr .Q8H20M PRN 0 mls/hr Protocol Titration 15 MG/HR Sodium Chloride 1,000 mls @ 75 mls/hr 09/22/17 13:17 09/25/17 09:19 Sodium Chloride 0.9% IV 75 mls/hr .[id number] EUSEBIO Administration Meropenem 1 gm/ Dextrose 100 mls @ 100 mls/hr 09/25/17 22:00 IVPB Q8 EUSEBIO Metoprolol Tartrate 25 mg 09/13/17 13:00 09/25/17 14:00 Lopressor PO Not Given Q8H EUSEBIO Scopolamine 1 patch 09/14/17 22:00 09/23/17 22:35 Transderm-Scop TD 1 patch Q3D EUSEBIO Administration Thiamine HCl 100 mg 08/30/17 22:15 09/25/17 09:25 Vitamin B1 Inj IV 100 mg DAILY EUSEBIO Administration - Patient Studies Lab Studies: Microbiology Studies 09/22/17 11:00 Blood Culture - Preliminary Blood-Venous NO GROWTH AFTER 3 DAYS 09/22/17 11:30 Blood Culture - Preliminary Blood-Venous NO GROWTH AFTER 3 DAYS 09/19/17 20:25 - Final Blood Transfusion Bag - Final NO GROWTH AFTER 5 DAYS Lab Studies 09/25/17 09/25/17 09/25/17 Range/Units 11: 05:30 04:37 WBC (4.8-10.8) K/uL RBC (3.80-5.20) Mil/uL Hgb (11.0-16.0) g/dL Hct (34.0-47.0) % MCV (81.0-99.0) fL MCH (27.0-31.0) pg MCHC (33.0-37.0) g/dL RDW (11.5-14.5) % Plt Count (130-400) K/uL MPV (7.2-11.7) fL Neut % (Auto) (50.0-75.0) % Lymph % (Auto) (20.0-40.0) % Living[place] % (Auto) (0.0-10.0) % Eos % (Auto) (0.0-4.0) % Baso % (Auto) (0.0-2.0) % Neut # (1.8-7.0) K/uL Lymph # (1.0-4.3) K/uL Livingston # (0.0-0.8) K/uL Eos # (0.0-0.7) K/uL Baso # (0.0-0.2) K/uL Neutrophils % (Manual) (50-75) % Band Neutrophils % (0-2) % Lymphocytes % (Manual) (20-40) % Monocytes % (Manual) (0-10) % Eosinophils % (Manual) (0-4) % Metamyelocytes % (0-0) % Myelocytes % (0-0) % Platelet Estimate (NORMAL) Large Platelets Poikilocytosis (manual Anisocytosis (manual) Puncture Site Lr pCO2 34 L (35-45) mm/Hg pO2 190 H (80-100) mm/Hg HCO3 30.4 H (21-28) mmol/L ABG pH 7.55 H (7.35-7.45) ABG Total CO2 30.7 H (22-28) mmol/L ABG O2 Saturation 99.5 H (95-98) % ABG Base Excess 7.0 H (-2.0-3.0) mmol/L ABG Hemoglobin 9.5 L (11.7-17.4) g/dL ABG Carboxyhemoglobin 1.7 H (0.5-1.5) % POC ABG HHb (Measured) 0.5 (0.0-5.0) % ABG Methemoglobin 1.4 (0.0-3.0) % Stephen Test Pos A-a O2 Difference 124.0 mm/Hg Respiratory Index 0.7 Hgb O2 Saturation 96.4 (95.0-98.0) % Vent Mode Prvc Mechanical Rate 15 FiO2 50.0 % Tidal Volume 400 PEEP 5 Sodium (132-148) mmol/L Potassium (3.6-5.2) mmol/L Chloride (98-107) mmol/L Carbon Dioxide (22-30) mmol/L Anion Gap (10-20) BUN (7-17) mg/dL Creatinine (0.7-1.2) mg/dL Est GFR ( Amer) Est GFR (Non-Af Amer) POC Glucose (mg/dL) 92 (65-110) mg/dL Random Glucose (65-105) mg/dL Calcium (8.6-10.4) mg/dl Phosphorus (2.5-4.5) mg/dL Magnesium (1.6-2.3) mg/dL Total Bilirubin (0.2-1.3) mg/dL AST (14-36) U/L ALT (9-52) U/L Alkaline Phosphatase (38-126) U/L Total Protein (6.3-8.3) g/dL Albumin (3.5-5.0) g/dL Globulin (2.2-3.9) gm/dL Albumin/Globulin Ratio (1.0-2.1) Vancomycin Trough 6.0 (5.0-10.0) ug/mL 09/25/17 09/25/17 09/25/17 Range/Units 04:37 04:37 00:03 WBC 14.5 H (4.8-10.8) K/uL RBC 3.55 L (3.80-5.20) Mil/uL Hgb 10.2 L (11.0-16.0) g/dL Hct 31.1 L (34.0-47.0) % MCV 87.6 (81.0-99.0) fL MCH 28.6 (27.0-31.0) pg MCHC 32.7 L (33.0-37.0) g/dL RDW 15.2 H (11.5-14.5) % Plt Count 287 (130-400) K/uL MPV 8.4 (7.2-11.7) fL Neut % (Auto) 78.7 H (50.0-75.0) % Lymph % (Auto) 11.5 L (20.0-40.0) % [place] % (Auto) 7.0 (0.0-10.0) % Eos % (Auto) 2.0 (0.0-4.0) % Baso % (Auto) 0.8 (0.0-2.0) % Neut # 11.4 H (1.8-7.0) K/uL Lymph # 1.7 (1.0-4.3) K/uL [place] # 1.0 H (0.0-0.8) K/uL Eos # 0.3 (0.0-0.7) K/uL Baso # 0.1 (0.0-0.2) K/uL Neutrophils % (Manual) 82 H (50-75) % Band Neutrophils % 1 (0-2) % Lymphocytes % (Manual) 8 L (20-40) % Monocytes % (Manual) 6 (0-10) % Eosinophils % (Manual) 1 (0-4) % Metamyelocytes % 1 H (0-0) % Myelocytes % 1 H (0-0) % Platelet Estimate Normal (NORMAL) Large Platelets Present Poikilocytosis (manual Slight Anisocytosis (manual) Slight Puncture Site pCO2 (35-45) mm/Hg pO2 (80-100) mm/Hg HCO3 (21-28) mmol/L ABG pH (7.35-7.45) ABG Total CO2 (22-28) mmol/L ABG O2 Saturation (95-98) % ABG Base Excess (-2.0-3.0) mmol/L ABG Hemoglobin (11.7-17.4) g/dL ABG Carboxyhemoglobin (0.5-1.5) % POC ABG HHb (Measured) (0.0-5.0) % ABG Methemoglobin (0.0-3.0) % Stephen Test A-a O2 Difference mm/Hg Respiratory Index Hgb O2 Saturation (95.0-98.0) % Vent Mode Mechanical Rate FiO2 % Tidal Volume PEEP Sodium 132 (132-148) mmol/L Potassium 4.3 (3.6-5.2) mmol/L Chloride 98 (98-107) mmol/L Carbon Dioxide 31 H (22-30) mmol/L Anion Gap 7 L (10-20) BUN 2 L (7-17) mg/dL Creatinine 0.2 L (0.7-1.2) mg/dL Est GFR ( Amer) > 60 Est GFR (Non-Af Amer) > 60 POC Glucose (mg/dL) 95 (65-110) mg/dL Random Glucose 87 (65-105) mg/dL Calcium 9.2 (8.6-10.4) mg/dl Phosphorus 4.5 (2.5-4.5) mg/dL Magnesium 1.6 (1.6-2.3) mg/dL Total Bilirubin 1.1 (0.2-1.3) mg/dL AST 32 (14-36) U/L ALT 26 (9-52) U/L Alkaline Phosphatase 107 (38-126) U/L Total Protein 7.2 (6.3-8.3) g/dL Albumin 2.8 L (3.5-5.0) g/dL Globulin 4.3 H (2.2-3.9) gm/dL Albumin/Globulin Ratio 0.7 L (1.0-2.1) Vancomycin Trough (5.0-10.0) ug/mL 09/24/17 Range/Units 17:56 WBC (4.8-10.8) K/uL RBC (3.80-5.20) Mil/uL Hgb (11.0-16.0) g/dL Hct (34.0-47.0) % MCV (81.0-99.0) fL MCH (27.0-31.0) pg MCHC (33.0-37.0) g/dL RDW (11.5-14.5) % Plt Count (130-400) K/uL MPV (7.2-11.7) fL Neut % (Auto) (50.0-75.0) % Lymph % (Auto) (20.0-40.0) % Livingston % (Auto) (0.0-10.0) % Eos % (Auto) (0.0-4.0) % Baso % (Auto) (0.0-2.0) % Neut # (1.8-7.0) K/uL Lymph # (1.0-4.3) K/uL Livingston # (0.0-0.8) K/uL Eos # (0.0-0.7) K/uL Baso # (0.0-0.2) K/uL Neutrophils % (Manual) (50-75) % Band Neutrophils % (0-2) % Lymphocytes % (Manual) (20-40) % Monocytes % (Manual) (0-10) % Eosinophils % (Manual) (0-4) % Metamyelocytes % (0-0) % Myelocytes % (0-0) % Platelet Estimate (NORMAL) Large Platelets Poikilocytosis (manual Anisocytosis (manual) Puncture Site pCO2 (35-45) mm/Hg pO2 (80-100) mm/Hg HCO3 (21-28) mmol/L ABG pH (7.35-7.45) ABG Total CO2 (22-28) mmol/L ABG O2 Saturation (95-98) % ABG Base Excess (-2.0-3.0) mmol/L ABG Hemoglobin (11.7-17.4) g/dL ABG Carboxyhemoglobin (0.5-1.5) % POC ABG HHb (Measured) (0.0-5.0) % ABG Methemoglobin (0.0-3.0) % Stephen Test A-a O2 Difference mm/Hg Respiratory Index Hgb O2 Saturation (95.0-98.0) % Vent Mode Mechanical Rate FiO2 % Tidal Volume PEEP Sodium (132-148) mmol/L Potassium (3.6-5.2) mmol/L Chloride (98-107) mmol/L Carbon Dioxide (22-30) mmol/L Anion Gap (10-20) BUN (7-17) mg/dL Creatinine (0.7-1.2) mg/dL Est GFR ( Amer) Est GFR (Non-Af Amer) POC Glucose (mg/dL) 116 H (65-110) mg/dL Random Glucose (65-105) mg/dL Calcium (8.6-10.4) mg/dl Phosphorus (2.5-4.5) mg/dL Magnesium (1.6-2.3) mg/dL Total Bilirubin (0.2-1.3) mg/dL AST (14-36) U/L ALT (9-52) U/L Alkaline Phosphatase (38-126) U/L Total Protein (6.3-8.3) g/dL Albumin (3.5-5.0) g/dL Globulin (2.2-3.9) gm/dL Albumin/Globulin Ratio (1.0-2.1) Vancomycin Trough (5.0-10.0) ug/mL Laboratory Results - last 24 hr 09/24/17 09/25/17 09/25/17 17:56 00:03 04:37 WBC 14.5 H RBC 3.55 L Hgb 10.2 L Hct 31.1 L MCV 87.6 MCH 28.6 MCHC 32.7 L RDW 15.2 H Plt Count 287 MPV 8.4 Neut % (Auto) 78.7 H Lymph % (Auto) 11.5 L Livingston % (Auto) 7.0 Eos % (Auto) 2.0 Baso % (Auto) 0.8 Neut # 11.4 H Lymph # 1.7 Livingston # 1.0 H Eos # 0.3 Baso # 0.1 Neutrophils % (Manual) 82 H Band Neutrophils % 1 Lymphocytes % (Manual) 8 L Monocytes % (Manual) 6 Eosinophils % (Manual) 1 Metamyelocytes % 1 H Myelocytes % 1 H Platelet Estimate Normal Large Platelets Present Poikilocytosis (manual Slight Anisocytosis (manual) Slight Puncture Site pCO2 pO2 HCO3 ABG pH ABG Total CO2 ABG O2 Saturation ABG Base Excess ABG Hemoglobin ABG Carboxyhemoglobin POC ABG HHb (Measured) ABG Methemoglobin Stephen Test A-a O2 Difference Respiratory Index Hgb O2 Saturation Vent Mode Mechanical Rate FiO2 Tidal Volume PEEP Sodium Potassium Chloride Carbon Dioxide Anion Gap BUN Creatinine Est GFR ( Amer) Est GFR (Non-Af Amer) POC Glucose (mg/dL) 116 H 95 Random Glucose Calcium Phosphorus Magnesium Total Bilirubin AST ALT Alkaline Phosphatase Total Protein Albumin Globulin Albumin/Globulin Ratio Vancomycin Trough 09/25/17 09/25/17 09/25/17 04:37 04:37 05:30 WBC RBC Hgb Hct MCV MCH MCHC RDW Plt Count MPV Neut % (Auto) Lymph % (Auto) Livingston % (Auto) Eos % (Auto) Baso % (Auto) Neut # Lymph # Livingston # Eos # Baso # Neutrophils % (Manual) Band Neutrophils % Lymphocytes % (Manual) Monocytes % (Manual) Eosinophils % (Manual) Metamyelocytes % Myelocytes % Platelet Estimate Large Platelets Poikilocytosis (manual Anisocytosis (manual) Puncture Site Lr pCO2 34 L pO2 190 H HCO3 30.4 H ABG pH 7.55 H ABG Total CO2 30.7 H ABG O2 Saturation 99.5 H ABG Base Excess 7.0 H ABG Hemoglobin 9.5 L ABG Carboxyhemoglobin 1.7 H POC ABG HHb (Measured) 0.5 ABG Methemoglobin 1.4 Stephen Test Pos A-a O2 Difference 124.0 Respiratory Index 0.7 Hgb O2 Saturation 96.4 Vent Mode Prvc Mechanical Rate 15 FiO2 50.0 Tidal Volume 400 PEEP 5 Sodium 132 Potassium 4.3 Chloride 98 Carbon Dioxide 31 H Anion Gap 7 L BUN 2 L Creatinine 0.2 L Est GFR ( Amer) > 60 Est GFR (Non-Af Amer) > 60 POC Glucose (mg/dL) Random Glucose 87 Calcium 9.2 Phosphorus 4.5 Magnesium 1.6 Total Bilirubin 1.1 AST 32 ALT 26 Alkaline Phosphatase 107 Total Protein 7.2 Albumin 2.8 L Globulin 4.3 H Albumin/Globulin Ratio 0.7 L Vancomycin Trough 6.0 09/25/17 11:22 WBC RBC Hgb Hct MCV MCH MCHC RDW Plt Count MPV Neut % (Auto) Lymph % (Auto) Livingston % (Auto) Eos % (Auto) Baso % (Auto) Neut # Lymph # Livingston # Eos # Baso # Neutrophils % (Manual) Band Neutrophils % Lymphocytes % (Manual) Monocytes % (Manual) Eosinophils % (Manual) Metamyelocytes % Myelocytes % Platelet Estimate Large Platelets Poikilocytosis (manual Anisocytosis (manual) Puncture Site pCO2 pO2 HCO3 ABG pH ABG Total CO2 ABG O2 Saturation ABG Base Excess ABG Hemoglobin ABG Carboxyhemoglobin POC ABG HHb (Measured) ABG Methemoglobin Stephen Test A-a O2 Difference Respiratory Index Hgb O2 Saturation Vent Mode Mechanical Rate FiO2 Tidal Volume PEEP Sodium Potassium Chloride Carbon Dioxide Anion Gap BUN Creatinine Est GFR ( Amer) Est GFR (Non-Af Amer) POC Glucose (mg/dL) 92 Random Glucose Calcium Phosphorus Magnesium Total Bilirubin AST ALT Alkaline Phosphatase Total Protein Albumin Globulin Albumin/Globulin Ratio Vancomycin Trough Critical Care Progress Note - Nutrition Nutrition: Nutrition Category Date Time Status NPO Diet [DIET] Diets 09/18/17 Breakfast Active Attending/Attestation - Attestation I have personally seen and examined this patient.: Yes I have fully participated in the care of the patient.: Yes I have reviewed all pertinent clinical information: Yes Notes (Text): 09/25/17 16:54 Patient seen and examined in the intensive care unit. Case discussed with staff in the morning. No change in mental status On ventilatory support Possible terminal extubation on
[2017-09-25] MEDS: Meropenem 1 GM in Dextrose 5% In Water 100 ML IVPB SCH (21:38)
--- NOTE | 2017-09-25 23:13 | PN ---
DATE: 09/25/2017 SUBJECTIVE: The patient was seen and examined at bedside this morning. No change in her clinical condition. PHYSICAL EXAMINATION: VITAL SIGNS: Blood pressure is 113/67, pulse 129, respirations 17, O2 sat 100% on tidal volume 500, rate 15, and PEEP of 5. Temperature 99.6 degrees Fahrenheit. Intake is 3387, output is 1570. HEENT: Pupils are sluggishly reacting to light. Involuntary movements of the eyelid. ET tube and NG tube in the oral cavity. NECK: Supple with dressing at the tracheal incision site. LUNGS: Bilateral vesicular breath sounds. Bilateral basilar crackles. CVS: S1, S2 present. Tachycardic. ABDOMEN: Soft, nontender. Bowel sounds are present. BUSINESS INTELLIGENCE DIRECTOR: Unresponsive. Not responding to deep painful stimuli. Not moving any extremities. Involuntary movements of the eyelids and upper extremities, intermittent jerky movements. EXTREMITIES: No edema. MEDICATIONS: Include Tylenol as needed, artificial tears, Cardizem 60 mg p.o. q.6 hours, Pepcid 20 mg IV push q.12 hours, Diflucan 200 mg IV daily, heparin 5000 units subcu q.12 hours, Keppra 1 g IV q.12 hours, meropenem 1 g IV q.8 hours, metoprolol 25 mg p.o. q.8 hours, Diprivan for sedation, transdermal scopolamine patch, normal saline at 75 mL an hour, thiamine 100 mg IV daily, and vancomycin 1 g IV q.8 hours. LABORATORY DATA: Labs from this morning; WBC 14.5, hemoglobin 10.2, hematocrit 31.1, and platelets 287. ABG on 50% FiO2; pH 7.55, pCO2 of 34, pO2 of 190, and O2 sats of 99.5. Sodium 132, potassium 4.3, chloride 98, bicarb 31, BUN 2, creatinine 0.2, glucose 116, calcium 9.2, phosphorous 4.5, magnesium 1.6, total bilirubin 1.1, AST 32, ALT 26, alkaline phosphatase 107, total protein 7.2, albumin 2.8. Vancomycin trough 6.0. Repeat blood cultures and urine cultures negative so far. ASSESSMENT AND PLAN: A young female with ethyl alcohol abuse, substance abuse, chronic back problem status post surgery, wheelchair-bound, alcoholic-related pancreatic disease, admitted status post code with anoxic encephalopathy, seizures, ventilator-dependent respiratory failure, tachycardia, status post tracheostomy, status post resolution of subcutaneous emphysema and resolving pneumomediastinum. 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 to the patient's daughter, now who is agreeable to withdrawal the life support and give comfort measures. Palliative care management spoke to the patient's daughter, who said she would be coming in on to make the decision. I discussed with Surgery as the patient is scheduled for extended trach. Discussed with palliative care. Discussed with Dr. Miranda from bioethics. We will hold extended tracheal collar until as the patient's family is leaning towards possible terminal extubation on . We will continue with current management. Condition is critical and prognosis is guarded. Phoenix Caballero MD
[2017-09-26] MEDS: Vancomycin 1 gm/NS 200 ml 1 GM/200 ML BAG IVPB SCH ×3 (04:00→21:50)
[2017-09-26 05:27] LABS: ABG ALLEN TEST POS; ABG MECHANICAL RATE 10; ARTERIAL BLOOD GAS MODE PRVC; ATERIAL BLOOD GAS PEEP 5; CARBOXYHEMOGLOBIN 1.9 % (0.5-1.5); DRAW SITE LR; HHB 0.8 % (0.0-5.0); METHEMOGLOBIN 1.4 % (0.0-3.0)
[2017-09-26] MEDS: Meropenem 1 GM in Dextrose 5% In Water 100 ML IVPB SCH ×3 (05:30→21:53)
[2017-09-26 06:27] LABS: BASO # 0.1 K/uL (0.0-0.2); BASO % 0.3 % (0.0-2.0); EOS # 0.2 K/uL (0.0-0.7); EOS % 1.4 % (0.0-4.0); LYMPH # 1.2 K/uL (1.0-4.3); LYMPH % 7.7 % (20.0-40.0); MEAN CELL VOLUME 88.8 fL (81.0-99.0); MEAN CORPUSCULAR HEMOGLOBIN 29.2 pg (27.0-31.0); MEAN CORPUSCULAR HGB CONC 32.9 g/dL (33.0-37.0); MEAN PLATELET VOLUME 8.9 fL (7.2-11.7); MONO # 0.9 K/uL (0.0-0.8); MONO % 5.6 % (0.0-10.0); PLATELET COUNT 279 K/uL (130-400); RED CELL DISTRIBUTION WIDTH 15.5 % (11.5-14.5); WHITE BLOOD COUNT 15.5 K/uL (4.8-10.8)
[2017-09-26 06:34] LABS: ALKALINE PHOSPHATASE 102 U/L (38-126); ALT/SGPT 24 U/L (9-52); AST/SGOT 21 U/L (14-36); BILIRUBIN,TOTAL 1.4 mg/dL (0.2-1.3); CALCIUM 9.2 mg/dl (8.6-10.4); CARBON DIOXIDE 29 mmol/L (22-30); CHLORIDE 96 mmol/L (98-107); GLUCOSE,RANDOM 86 mg/dL (65-105); MAGNESIUM 1.3 mg/dL (1.6-2.3); PHOSPHOROUS 3.5 mg/dL (2.5-4.5); POTASSIUM 3.1 mmol/L (3.6-5.2); SODIUM 133 mmol/L (132-148); TOTAL PROTEIN 5.7 g/dL (6.3-8.3)
[2017-09-26 06:41] LABS: ALB/GLOB RATIO 0.9 (1.0-2.1)
[2017-09-26] MEDS: Propofol 10 mg/ml 1,000 MG/100 ML VIAL IV PRN ×3 (06:47→22:40)
[2017-09-26 07:26] LABS: BLOOD UREA NITROGEN 2 mg/dL (7-17)
[2017-09-26 07:27] LABS: GFR AFRICAN-AMERICAN > 60
[2017-09-26 08:21] LABS: NEUTROPHIL 89 % (50-75); TOTAL CELLS COUNTED 100
[2017-09-26] MEDS: Magnesium Sulfate 1 gm in D5W 1 GM/100 ML BAG IVPB SCH ×4 (08:30→12:54)
[2017-09-26] MEDS: Sodium Chloride 0.9% 1,000 ML IV SCH ×2 (08:30→21:54)
--- NOTE | 2017-09-26 08:51 | RAD ---
HISTORY: intubated COMPARISON: 09/22/2017 FINDINGS: LUNGS: Probable subsegmental atelectasis PLEURA: No significant pleural effusion identified, no pneumothorax apparent. CARDIOVASCULAR: Normal heart size. No congestive change. Endotracheal tube, nasogastric tube and right internal jugular triple-lumen central venous catheter unchanged. OSSEOUS STRUCTURES: No significant abnormalities. VISUALIZED UPPER ABDOMEN: Normal. OTHER FINDINGS: None. IMPRESSION: Right basilar subsegmental atelectasis. Lines and tubes unchanged.
[2017-09-26] MEDS: Fluconazole IV 200mg/100 ml NS 100 ML IVPB SCH (09:30)
[2017-09-26] MEDS ORDERED: Potassium Chloride 20 mEq/15 ml LIQ UD PO ONE ×2 (10:00→12:00)
[2017-09-26] MEDS: Thiamine 100 mg/ml Inj IV SCH (11:02)
--- NOTE | 2017-09-26 11:54 | CP.PCM.PN ---
Subjective - Date & Time of Evaluation Date of Evaluation: 09/26/17 Time of Evaluation: 11:40 - Subjective Subjective: Progress note dictated #[id number] Objective - Vital Signs/Intake and Output Vital Signs (last 24 hours): Temp Pulse Resp BP Pulse Ox 100.0 F H 131 H 26 H 246/197 H 100 09/26/17 04:00 09/26/17 06:31 09/26/17 06:31 09/26/17 06:31 09/26/17 06:31 Intake and Output: 09/26/17 09/26/17 06:59 18:59 Intake Total 1536.0 Output Total 650 Balance 886.0 - Medications Medications: Current Medications Acetaminophen (Tylenol 650mg/20.3ml Solution Ud) 650 mg NG Q6 PRN PRN Reason: Temperature Last Admin: 09/21/17 07:17 Dose: 650 mg Artificial Tears (Lacri-Lube) 1 gm OS Q6H PRN PRN Reason: Sedation Last Admin: 09/06/17 20:10 Dose: 1 gm Diltiazem HCl (Cardizem) 60 mg PO Q6H [facility] Last Admin: 09/26/17 05:48 Dose: 60 mg Famotidine (Pepcid) 20 mg IVP Q12 [facility] Last Admin: 09/26/17 09:21 Dose: 20 mg Heparin Sodium (Porcine) (Heparin) 5,000 units SC Q12 [facility] Last Admin: 09/26/17 09:21 Dose: 5,000 units Levetiracetam 1,000 mg/ (Dextrose) 110 mls @ 440 mls/hr IVPB Q12H [facility] Last Admin: 09/26/17 05:49 Dose: 440 mls/hr Fluconazole (Diflucan Iv 200 Mg/100 Ml Ns) 100 mls @ 100 mls/hr IVPB DAILY [facility] Last Admin: 09/26/17 09:30 Dose: 100 mls/hr Propofol (Diprivan) 1,000 mg in 100 mls @ 4.998 mls/hr IV .Q20H1M PRN; Protocol ; 12.4 MCG/KG/MIN PRN Reason: TITRATE PER MD ORDER Last Admin: 09/26/17 06:47 Dose: 20 mcg/kg/min, 8.061 mls/hr Vancomycin/Sodium Chloride (Vancomycin 1 Gm/Ns 200 Ml) 1 gm in 200 mls @ 133.333 mls/hr IVPB Q8H [facility] Stop: 09/26/17 21:01 Last Admin: 09/26/17 04:00 Dose: 133.333 mls/hr Diltiazem HCl 125 mg/ Dextrose 125 mls @ 15 mls/hr IV .Q8H20M PRN; 15 MG/HR PRN Reason: Protocol Last Titration: 09/25/17 11:00 Dose: 0 mg/hr, 0 mls/hr Sodium Chloride (Sodium Chloride 0.9%) 1,000 mls @ 75 mls/hr IV .[id number] [facility] Last Admin: 09/26/17 08:30 Dose: 75 mls/hr Meropenem 1 gm/ Dextrose 100 mls @ 100 mls/hr IVPB Q8 [facility] Last Admin: 09/26/17 05:30 Dose: 100 mls/hr Metoprolol Tartrate (Lopressor) 25 mg PO Q8H [facility] Last Admin: 09/26/17 05:48 Dose: 25 mg Potassium Chloride (Potassium Chloride Oral Soln) 40 meq PO ONCE ONE Stop: 09/26/17 12:01 Scopolamine (Transderm-Scop) 1 patch TD Q3D [facility] Last Admin: 09/23/17 22:35 Dose: 1 patch Thiamine HCl (Vitamin B1 Inj) 100 mg IV DAILY [facility] Last Admin: 09/26/17 11:02 Dose: 100 mg - Labs Labs: 09/26/17 06:08 09/26/17 06:08 PT 16.9 SECONDS (9.7-12.2) H 09/18/17 14:01 INR 1.5 09/18/17 14:01 APTT 33 SECONDS (21-34) 09/18/17 14:01
--- NOTE | 2017-09-26 13:32 | CP.CCUPN ---
<Liset Massey - Last Filed: 09/26/17 13:47> CCU Subjective - Physician Review Subjective (Free Text): Patient seen and examined at bedside. Patient currently intubated. ROS unobtainable due to patient's current clinical status. CCU Objective - Vital Signs / Intake & Output Intake and Output (Last 8hrs): Intake & Output 09/25/17 09/26/17 09/26/17 22:59 06:59 14:59 Intake Total 996.5 1056.5 Output Total 580 390 Balance 416.5 666.5 Weight 154 lb 4.8 oz Intake: IV 100 100 Intake, IV Amount 776.5 911.5 Right Distal Port 64 64 Internal Jugular Right Wrist 712.5 847.5 Tube Feeding 120 45 Output: Urine 580 390 Urethral (Andino) 580 390 Other: # Bowel Movements 1 0 - Physical Exam Head: Positive for: Atraumatic, Normocephalic Pupils: Positive for: Sluggish Extroacular Muscles: Negative for: EOMI Mouth: Positive for: Moist Mucous Membranes Respiratory/Chest: Positive for: Good Air Exchange, Rhonchi, Other ( subcutaneous emphysema ) Cardiovascular: Positive for: Normal S1, S2, Tachycardic Abdomen: Positive for: Distention, Normal Bowel Sounds. Negative for: Tenderness Upper Extremity: Negative for: Edema Lower Extremity: Negative for: Edema Neurological: Negative for: GCS=15, CN II-XII Intact, Speech Normal Skin: Positive for: Normal Color Psychiatric: Negative for: Alert, Oriented x 3 - Medications Active Medications: Active Medications Generic Name Dose Route Start Last Admin Trade Name Jetq PRN Reason Stop Dose Admin Acetaminophen 650 mg 09/15/17 03:51 09/21/17 07:17 Tylenol 650mg/20.3ml Solution Ud NG 650 mg Q6 PRN Administration Temperature Artificial Tears 1 gm 08/31/17 12:00 09/06/17 20:10 Lacri-Lube OS 1 gm Q6H PRN Administration Sedation Diltiazem HCl 60 mg 09/25/17 12:00 09/26/17 12:43 Cardizem PO 60 mg Q6H EUSEBIO Administration Famotidine 20 mg 09/21/17 10:45 09/26/17 09:21 Pepcid IVP 20 mg Q12 EUSEBIO Administration Heparin Sodium (Porcine) 5,000 units 09/14/17 12:30 09/26/17 09:21 Heparin SC 5,000 units Q12 EUSEBIO Administration Levetiracetam 1,000 mg/ 110 mls @ 440 mls/hr 09/10/17 06:00 09/26/17 05:49 Dextrose IVPB 440 mls/hr Q12H EUSEBIO Administration Fluconazole 100 mls @ 100 mls/hr 09/17/17 10:30 09/26/17 09:30 Diflucan Iv 200 Mg/100 Ml Ns IVPB 100 mls/hr DAILY EUSEBIO Administration Propofol 1,000 mg in 100 mls @ 4.998 mls/hr 09/18/17 13:13 09/26/17 06:47 Diprivan IV 20 mcg/kg/min .Q20H1M PRN 8.061 mls/hr TITRATE PER MD ORDER Administration Protocol 12.4 MCG/KG/MIN Vancomycin/Sodium Chloride 1 gm in 200 mls @ 133.333 mls/hr 09/21/17 21:00 12:47 Vancomycin 1 Gm/Ns 200 Ml IVPB 09/26/17 21:01 133.333 mls/hr Q8H EUSEBIO Administration Diltiazem HCl 125 mg/ Dextrose 125 mls @ 15 mls/hr 09/22/17 08:45 09/25/17 11 :00 IV 0 mg/hr .Q8H20M PRN 0 mls/hr Protocol Titration 15 MG/HR Sodium Chloride 1,000 mls @ 75 mls/hr 09/22/17 13:17 09/26/17 08:30 Sodium Chloride 0.9% IV 75 mls/hr .[id number] EUSEBIO Administration Meropenem 1 gm/ Dextrose 100 mls @ 100 mls/hr 09/25/17 22:00 09/26/17 05:30 IVPB 100 mls/hr Q8 EUSEBIO Administration Potassium Chloride 20 meq in 100 mls @ 50 mls/hr 09/26/17 12:58 Potassium Chloride 20 Meq/100 Ml IVPB 09/26/17 14:57 ONCE ONE Metoprolol Tartrate 25 mg 09/13/17 13:00 09/26/17 05:48 Lopressor PO 25 mg Q8H EUSEBIO Administration Scopolamine 1 patch 09/14/17 22:00 09/23/17 22:35 Transderm-Scop TD 1 patch Q3D EUSEBIO Administration Thiamine HCl 100 mg 08/30/17 22:15 09/26/17 11:02 Vitamin B1 Inj IV 100 mg DAILY EUSEBIO Administration - Patient Studies Lab Studies: Microbiology Studies 09/22/17 11:00 Blood Culture - Preliminary Blood-Venous NO GROWTH AFTER 4 DAYS 09/22/17 11:30 Blood Culture - Preliminary Blood-Venous NO GROWTH AFTER 4 DAYS Lab Studies 09/26/17 09/26/17 09/26/17 Range/Units 06:08 06:08 06:08 WBC 15.5 H (4.8-10.8) K/uL RBC 3.38 L (3.80-5.20) Mil/uL Hgb 9.9 L (11.0-16.0) g/dL Hct 30.0 L (34.0-47.0) % MCV 88.8 (81.0-99.0) fL MCH 29.2 (27.0-31.0) pg MCHC 32.9 L (33.0-37.0) g/dL RDW 15.5 H (11.5-14.5) % Plt Count 279 (130-400) K/uL MPV 8.9 (7.2-11.7) fL Neut % (Auto) 85.0 H (50.0-75.0) % Lymph % (Auto) 7.7 L (20.0-40.0) % [place] % (Auto) 5.6 (0.0-10.0) % Eos % (Auto) 1.4 (0.0-4.0) % Baso % (Auto) 0.3 (0.0-2.0) % Neut # 13.1 H (1.8-7.0) K/uL Lymph # 1.2 (1.0-4.3) K/uL [place] # 0.9 H (0.0-0.8) K/uL Eos # 0.2 (0.0-0.7) K/uL Baso # 0.1 (0.0-0.2) K/uL Neutrophils % (Manual) 89 H (50-75) % Lymphocytes % (Manual) 5 L (20-40) % Monocytes % (Manual) 6 (0-10) % Platelet Estimate Normal (NORMAL) Polychromasia Slight Hypochromasia (manual) Slight Anisocytosis (manual) Slight Puncture Site pCO2 (35-45) mm/Hg pO2 (80-100) mm/Hg HCO3 (21-28) mmol/L ABG pH (7.35-7.45) ABG Total CO2 (22-28) mmol/L ABG O2 Saturation (95-98) % ABG Base Excess (-2.0-3.0) mmol/L ABG Hemoglobin (11.7-17.4) g/dL ABG Carboxyhemoglobin (0.5-1.5) % POC ABG HHb (Measured) (0.0-5.0) % ABG Methemoglobin (0.0-3.0) % Stephen Test A-a O2 Difference mm/Hg Respiratory Index Hgb O2 Saturation (95.0-98.0) % Vent Mode Mechanical Rate FiO2 % Tidal Volume PEEP Sodium 133 (132-148) mmol/L Potassium 3.1 L (3.6-5.2) mmol/L Chloride 96 L (98-107) mmol/L Carbon Dioxide 29 (22-30) mmol/L Anion Gap 12 (10-20) BUN 2 L (7-17) mg/dL Creatinine 0.2 L (0.7-1.2) mg/dL Est GFR ( Amer) > 60 Est GFR (Non-Af Amer) > 60 POC Glucose (mg/dL) (65-110) mg/dL Random Glucose 86 (65-105) mg/dL Calcium 9.2 (8.6-10.4) mg/dl Phosphorus 3.5 (2.5-4.5) mg/dL Magnesium 1.3 L (1.6-2.3) mg/dL Total Bilirubin 1.4 H (0.2-1.3) mg/dL AST 21 (14-36) U/L ALT 24 (9-52) U/L Alkaline Phosphatase 102 (38-126) U/L Total Protein 5.7 L (6.3-8.3) g/dL Albumin 2.7 L (3.5-5.0) g/dL Globulin 3.0 (2.2-3.9) gm/dL Albumin/Globulin Ratio 0.9 L (1.0-2.1) Vancomycin Trough 40.8 H (5.0-10.0) ug/mL 09/26/17 09/26/17 09/26/17 Range/Units 05:02 04:48 00:07 WBC (4.8-10.8) K/uL RBC (3.80-5.20) Mil/uL Hgb (11.0-16.0) g/dL Hct (34.0-47.0) % MCV (81.0-99.0) fL MCH (27.0-31.0) pg MCHC (33.0-37.0) g/dL RDW (11.5-14.5) % Plt Count (130-400) K/uL MPV (7.2-11.7) fL Neut % (Auto) (50.0-75.0) % Lymph % (Auto) (20.0-40.0) % [place] % (Auto) (0.0-10.0) % Eos % (Auto) (0.0-4.0) % Baso % (Auto) (0.0-2.0) % Neut # (1.8-7.0) K/uL Lymph # (1.0-4.3) K/uL [place] # (0.0-0.8) K/uL Eos # (0.0-0.7) K/uL Baso # (0.0-0.2) K/uL Neutrophils % (Manual) (50-75) % Lymphocytes % (Manual) (20-40) % Monocytes % (Manual) (0-10) % Platelet Estimate (NORMAL) Polychromasia Hypochromasia (manual) Anisocytosis (manual) Puncture Site Lr pCO2 40 (35-45) mm/Hg pO2 106 H (80-100) mm/Hg HCO3 30.7 H (21-28) mmol/L ABG pH 7.50 H (7.35-7.45) ABG Total CO2 32.4 H (22-28) mmol/L ABG O2 Saturation 99.2 H (95-98) % ABG Base Excess 7.4 H (-2.0-3.0) mmol/L ABG Hemoglobin 9.9 L (11.7-17.4) g/dL ABG Carboxyhemoglobin 1.9 H (0.5-1.5) % POC ABG HHb (Measured) 0.8 (0.0-5.0) % ABG Methemoglobin 1.4 (0.0-3.0) % Stephen Test Pos A-a O2 Difference 201.0 mm/Hg Respiratory Index 1.9 Hgb O2 Saturation 96.0 (95.0-98.0) % Vent Mode Prvc Mechanical Rate 10 FiO2 50.0 % Tidal Volume 400 PEEP 5 Sodium (132-148) mmol/L Potassium (3.6-5.2) mmol/L Chloride (98-107) mmol/L Carbon Dioxide (22-30) mmol/L Anion Gap (10-20) BUN (7-17) mg/dL Creatinine (0.7-1.2) mg/dL Est GFR ( Amer) Est GFR (Non-Af Amer) POC Glucose (mg/dL) 115 H 119 H (65-110) mg/dL Random Glucose (65-105) mg/dL Calcium (8.6-10.4) mg/dl Phosphorus (2.5-4.5) mg/dL Magnesium (1.6-2.3) mg/dL Total Bilirubin (0.2-1.3) mg/dL AST (14-36) U/L ALT (9-52) U/L Alkaline Phosphatase (38-126) U/L Total Protein (6.3-8.3) g/dL Albumin (3.5-5.0) g/dL Globulin (2.2-3.9) gm/dL Albumin/Globulin Ratio (1.0-2.1) Vancomycin Trough (5.0-10.0) ug/mL 09/25/17 Range/Units 17:44 WBC (4.8-10.8) K/uL RBC (3.80-5.20) Mil/uL Hgb (11.0-16.0) g/dL Hct (34.0-47.0) % MCV (81.0-99.0) fL MCH (27.0-31.0) pg MCHC (33.0-37.0) g/dL RDW (11.5-14.5) % Plt Count (130-400) K/uL MPV (7.2-11.7) fL Neut % (Auto) (50.0-75.0) % Lymph % (Auto) (20.0-40.0) % [place] % (Auto) (0.0-10.0) % Eos % (Auto) (0.0-4.0) % Baso % (Auto) (0.0-2.0) % Neut # (1.8-7.0) K/uL Lymph # (1.0-4.3) K/uL [place] # (0.0-0.8) K/uL Eos # (0.0-0.7) K/uL Baso # (0.0-0.2) K/uL Neutrophils % (Manual) (50-75) % Lymphocytes % (Manual) (20-40) % Monocytes % (Manual) (0-10) % Platelet Estimate (NORMAL) Polychromasia Hypochromasia (manual) Anisocytosis (manual) Puncture Site pCO2 (35-45) mm/Hg pO2 (80-100) mm/Hg HCO3 (21-28) mmol/L ABG pH (7.35-7.45) ABG Total CO2 (22-28) mmol/L ABG O2 Saturation (95-98) % ABG Base Excess (-2.0-3.0) mmol/L ABG Hemoglobin (11.7-17.4) g/dL ABG Carboxyhemoglobin (0.5-1.5) % POC ABG HHb (Measured) (0.0-5.0) % ABG Methemoglobin (0.0-3.0) % Stephen Test A-a O2 Difference mm/Hg Respiratory Index Hgb O2 Saturation (95.0-98.0) % Vent Mode Mechanical Rate FiO2 % Tidal Volume PEEP Sodium (132-148) mmol/L Potassium (3.6-5.2) mmol/L Chloride (98-107) mmol/L Carbon Dioxide (22-30) mmol/L Anion Gap (10-20) BUN (7-17) mg/dL Creatinine (0.7-1.2) mg/dL Est GFR ( Amer) Est GFR (Non-Af Amer) POC Glucose (mg/dL) 89 (65-110) mg/dL Random Glucose (65-105) mg/dL Calcium (8.6-10.4) mg/dl Phosphorus (2.5-4.5) mg/dL Magnesium (1.6-2.3) mg/dL Total Bilirubin (0.2-1.3) mg/dL AST (14-36) U/L ALT (9-52) U/L Alkaline Phosphatase (38-126) U/L Total Protein (6.3-8.3) g/dL Albumin (3.5-5.0) g/dL Globulin (2.2-3.9) gm/dL Albumin/Globulin Ratio (1.0-2.1) Vancomycin Trough (5.0-10.0) ug/mL Laboratory Results - last 24 hr 09/25/17 09/26/17 09/26/17 17:44 00:07 04:48 WBC RBC Hgb Hct MCV MCH MCHC RDW Plt Count MPV Neut % (Auto) Lymph % (Auto) [place] % (Auto) Eos % (Auto) Baso % (Auto) Neut # Lymph # [place] # Eos # Baso # Neutrophils % (Manual) Lymphocytes % (Manual) Monocytes % (Manual) Platelet Estimate Polychromasia Hypochromasia (manual) Anisocytosis (manual) Puncture Site pCO2 pO2 HCO3 ABG pH ABG Total CO2 ABG O2 Saturation ABG Base Excess ABG Hemoglobin ABG Carboxyhemoglobin POC ABG HHb (Measured) ABG Methemoglobin Stephen Test A-a O2 Difference Respiratory Index Hgb O2 Saturation Vent Mode Mechanical Rate FiO2 Tidal Volume PEEP Sodium Potassium Chloride Carbon Dioxide Anion Gap BUN Creatinine Est GFR ( Amer) Est GFR (Non-Af Amer) POC Glucose (mg/dL) 89 119 H 115 H Random Glucose Calcium Phosphorus Magnesium Total Bilirubin AST ALT Alkaline Phosphatase Total Protein Albumin Globulin Albumin/Globulin Ratio Vancomycin Trough 09/26/17 09/26/17 09/26/17 05:02 06:08 06:08 WBC 15.5 H RBC 3.38 L Hgb 9.9 L Hct 30.0 L MCV 88.8 MCH 29.2 MCHC 32.9 L RDW 15.5 H Plt Count 279 MPV 8.9 Neut % (Auto) 85.0 H Lymph % (Auto) 7.7 L [place] % (Auto) 5.6 Eos % (Auto) 1.4 Baso % (Auto) 0.3 Neut # 13.1 H Lymph # 1.2 [place] # 0.9 H Eos # 0.2 Baso # 0.1 Neutrophils % (Manual) 89 H Lymphocytes % (Manual) 5 L Monocytes % (Manual) 6 Platelet Estimate Normal Polychromasia Slight Hypochromasia (manual) Slight Anisocytosis (manual) Slight Puncture Site Lr pCO2 40 pO2 106 H HCO3 30.7 H ABG pH 7.50 H ABG Total CO2 32.4 H ABG O2 Saturation 99.2 H ABG Base Excess 7.4 H ABG Hemoglobin 9.9 L ABG Carboxyhemoglobin 1.9 H POC ABG HHb (Measured) 0.8 ABG Methemoglobin 1.4 Stephen Test Pos A-a O2 Difference 201.0 Respiratory Index 1.9 Hgb O2 Saturation 96.0 Vent Mode Prvc Mechanical Rate 10 FiO2 50.0 Tidal Volume 400 PEEP 5 Sodium Potassium Chloride Carbon Dioxide Anion Gap BUN Creatinine Est GFR ( Amer) Est GFR (Non-Af Amer) POC Glucose (mg/dL) Random Glucose Calcium Phosphorus Magnesium Total Bilirubin AST ALT Alkaline Phosphatase Total Protein Albumin Globulin Albumin/Globulin Ratio Vancomycin Trough 40.8 H 09/26/17 06:08 WBC RBC Hgb Hct MCV MCH MCHC RDW Plt Count MPV Neut % (Auto) Lymph % (Auto) [place] % (Auto) Eos % (Auto) Baso % (Auto) Neut # Lymph # [place] # Eos # Baso # Neutrophils % (Manual) Lymphocytes % (Manual) Monocytes % (Manual) Platelet Estimate Polychromasia Hypochromasia (manual) Anisocytosis (manual) Puncture Site pCO2 pO2 HCO3 ABG pH ABG Total CO2 ABG O2 Saturation ABG Base Excess ABG Hemoglobin ABG Carboxyhemoglobin POC ABG HHb (Measured) ABG Methemoglobin Stephen Test A-a O2 Difference Respiratory Index Hgb O2 Saturation Vent Mode Mechanical Rate FiO2 Tidal Volume PEEP Sodium 133 Potassium 3.1 L Chloride 96 L Carbon Dioxide 29 Anion Gap 12 BUN 2 L Creatinine 0.2 L Est GFR ( Amer) > 60 Est GFR (Non-Af Amer) > 60 POC Glucose (mg/dL) Random Glucose 86 Calcium 9.2 Phosphorus 3.5 Magnesium 1.3 L Total Bilirubin 1.4 H AST 21 ALT 24 Alkaline Phosphatase 102 Total Protein 5.7 L Albumin 2.7 L Globulin 3.0 Albumin/Globulin Ratio 0.9 L Vancomycin Trough Fingerstick Blood Sugar Results: 123 Review of Systems - Review of Systems Systems not reviewed;Unavailable: Intubated Critical Care Progress Note - Nutrition Nutrition: Nutrition Category Date Time Status NPO Diet [DIET] Diets 09/18/17 Breakfast Active Assessment/Plan - Assessment and Plan (Free Text) Assessment: 36 year old female with past medical history of anemia and alcohol abuse, who was found unconscious by . EMS was called and patient was found to be in Asystole, ACLS protocol was initiated and 2 rounds of epinephrine and then ROSC. Patient was unconscious in the ED. Subsequently, patient was admitted to the ICU and hypothermia protocol was initiated. Today's Plan: Daughter has agreed to comfort care measures and plans to terminally extubate this 09/27/17 Plan: Neuro: Intubated, Acute seizures Neurologist, Dr. Pugh---> help appreciated * Management as per recommendation Medication/Management: * Keppra 1000mg IV Q12H * Propofol (Titratable) Imaging: * EEG (08/31/17): globally abnormal EEG because of persistent spike and wave activities consistent with status epilepticus. Please correlate the findings with neurological and radiological studies * Cerebral blood flow (09/03/17): does not conform to nuclear medicine diagnosis of brain . There is a faint cerebral flow, the study is considered technically suboptimal for reasons related to technique and poor visualization of carotid arteries. * CT head w/o contrast (09/03/17): No mass effect or edema. No atrophy or chronic microvascular. * EEG (09/06): status epilepticus * head CT (09/12/17): asymmetric low attenuation in the L basal ganglia could represent anoxic injury. Mild global parenchymal volume loss, advanced for the patient's age. Cardio: Cardiopulmonary Arrest, tachycardia Management: * Intubated * Hypothermia protocol was initiated * Lopressor 25mg po q8h * Cardizem drip started (09/17) * Cardizem 60 mg QID Pulm: Respiratory distress secondary to cardiac arrest, intubated * Intubated * sputum culture: staph * D Dimer: [id number] * CTA: no evidence of PE, bibasilar consolidation. Upper lobe interstitial infiltrates. 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 Plaza consulted, help appreciated * 09/20 CTA head and neck: extensive soft tissue air, including air in retropharyngeal space. deep soft tissue defect in the midline anterior neck soft tissues which extends from the skin surface to the anterior wall of the trachee. Cannot exclude tracheocutaneous fistula, secondary to a focal tracheal rupture or injury. This could be the cause of the soft tissue gas. An ET tube is in place. Extensive pneumomediastinum, left orbital emphysema, findings highly suspicious for diffuse left otomastoiditis. * Dr. Dockery d/c trach on 09/21 and orally intubated with cuff placement distal to site of fistula * as per Dr. Dockery patient to receive extended trach which will bypass fistula GI: Diarrhea * C. Dif negative (09/03) * repeat C. dif (09/17) negative * Dr. Hernandez consulted for PEG placement, because of TE fistula probably better to surgically placed G tube * Dr. Skinner agrees that PEG cannot be done due to TE fistula, surgical PEG to be considered * IR consulted for PEG eval, help appreciated Renal: Electrolyte imbalance Nephrology, Dr. Ramos---> Help appreciated * Management as per recommendation * electrolytes repleted as needed Heme: anemia * H/H: on 09/12 dropped to 7.3/22.5 from 8.1/24.5- patient was transfused 2 u PRBCs * H/H: 9.8/30.4 * 09/18- INR: 1.8, 2u FFP transfused and Vit K 10mg sc given * 09/19: INR: 1.5, 2 units FFP HgB dropped to 8.3 from 9.8, transfuse 1 u PRBCs * 09/24: stable H/H: 10.4/ 31.4 ID: * sputum: staph aureus * Merrem 1 gm q8h (started on 09/22) * Vancomycin 1gm q12h * f/u random vanco * 09/12: repeat cultures: urine- yeast species, blood negative * Diflucan 200mg daily * repeat sputum culture on 09/19: MRSA * repeat blood culture 09/19: no growth Psych: Alcohol abuse disorder * Thiamine 100mg IV daily Prophylaxis measures: * R IJ in place * DVT: SCDs, Heparin 5,000 units SC Q12H * GI: Protonix 40mg IV daily * tube feeds: jevity <Bruton Walters S - Last Filed: 09/26/17 17:49> CCU Objective - Vital Signs / Intake & Output Vital Signs (Last 4 hours): Vital Signs Pulse Resp BP Pulse Ox 09/26/17 15:02 114 H 17 97/59 L 100 09/26/17 14:02 112 H 19 94/65 L 99 Intake and Output (Last 8hrs): Intake & Output 09/26/17 09/26/17 09/26/17 06:59 14:59 22:59 Intake Total 1056.5 65 35 Output Total 390 Balance 666.5 65 35 Weight 154 lb 4.8 oz Intake: IV 100 65 35 Intake, IV Amount 911.5 Right Distal Port 64 Internal Jugular Right Wrist 847.5 Tube Feeding 45 Output: Urine 390 Urethral (Andino) 390 Other: # Bowel Movements 0 - Medications Active Medications: Active Medications Generic Name Dose Route Start Last Admin Trade Name Freq PRN Reason Stop Dose Admin Acetaminophen 650 mg 09/15/17 03:51 09/21/17 07:17 Tylenol 650mg/20.3ml Solution Ud NG 650 mg Q6 PRN Administration Temperature Artificial Tears 1 gm 08/31/17 12:00 09/06/17 20:10 Lacri-Lube OS 1 gm Q6H PRN Administration Sedation Diltiazem HCl 60 mg 09/25/17 12:00 09/26/17 14:02 Cardizem PO Not Given Q6H EUSEBIO Famotidine 20 mg 09/21/17 10:45 09/26/17 09:21 Pepcid IVP 20 mg Q12 EUSEBIO Administration Heparin Sodium (Porcine) 5,000 units 09/14/17 12:30 09/26/17 09:21 Heparin SC 5,000 units Q12 EUSEBIO Administration Levetiracetam 1,000 mg/ 110 mls @ 440 mls/hr 09/10/17 06:00 09/26/17 17:00 Dextrose IVPB 440 mls/hr Q12H EUSEBIO Administration Fluconazole 100 mls @ 100 mls/hr 09/17/17 10:30 09/26/17 09:30 Diflucan Iv 200 Mg/100 Ml Ns IVPB 100 mls/hr DAILY EUSEBIO Administration Propofol 1,000 mg in 100 mls @ 4.998 mls/hr 09/18/17 13:13 09/26/17 15:09 Diprivan IV 20 mcg/kg/min .Q20H1M PRN 8.061 mls/hr TITRATE PER MD ORDER Administration Protocol 12.4 MCG/KG/MIN Vancomycin/Sodium Chloride 1 gm in 200 mls @ 133.333 mls/hr 09/21/17 21:00 12:47 Vancomycin 1 Gm/Ns 200 Ml IVPB 09/26/17 21:01 133.333 mls/hr Q8H EUSEBIO Administration Diltiazem HCl 125 mg/ Dextrose 125 mls @ 15 mls/hr 09/22/17 08:45 09/25/17 11 :00 IV 0 mg/hr .Q8H20M PRN 0 mls/hr Protocol Titration 15 MG/HR Sodium Chloride 1,000 mls @ 75 mls/hr 09/22/17 13:17 09/26/17 08:30 Sodium Chloride 0.9% IV 75 mls/hr .[id number] EUSEBIO Administration Meropenem 1 gm/ Dextrose 100 mls @ 100 mls/hr 09/25/17 22:00 09/26/17 14:03 IVPB 100 mls/hr Q8 EUSEBIO Administration Metoprolol Tartrate 25 mg 09/13/17 13:00 09/26/17 14:02 Lopressor PO Not Given Q8H EUSEBIO Scopolamine 1 patch 09/14/17 22:00 09/23/17 22:35 Transderm-Scop TD 1 patch Q3D EUSEBIO Administration Thiamine HCl 100 mg 08/30/17 22:15 09/26/17 11:02 Vitamin B1 Inj IV 100 mg DAILY EUSEBIO Administration - Patient Studies Lab Studies: Microbiology Studies 09/22/17 11:00 Blood Culture - Preliminary Blood-Venous NO GROWTH AFTER 4 DAYS 09/22/17 11:30 Blood Culture - Preliminary Blood-Venous NO GROWTH AFTER 4 DAYS Lab Studies 09/26/17 09/26/17 09/26/17 Range/Units 17:43 11:06 06:08 WBC (4.8-10.8) K/uL RBC (3.80-5.20) Mil/uL Hgb (11.0-16.0) g/dL Hct (34.0-47.0) % MCV (81.0-99.0) fL MCH (27.0-31.0) pg MCHC (33.0-37.0) g/dL RDW (11.5-14.5) % Plt Count (130-400) K/uL MPV (7.2-11.7) fL Neut % (Auto) (50.0-75.0) % Lymph % (Auto) (20.0-40.0) % [place] % (Auto) (0.0-10.0) % Eos % (Auto) (0.0-4.0) % Baso % (Auto) (0.0-2.0) % Neut # (1.8-7.0) K/uL Lymph # (1.0-4.3) K/uL [place] # (0.0-0.8) K/uL Eos # (0.0-0.7) K/uL Baso # (0.0-0.2) K/uL Neutrophils % (Manual) (50-75) % Lymphocytes % (Manual) (20-40) % Monocytes % (Manual) (0-10) % Platelet Estimate (NORMAL) Polychromasia Hypochromasia (manual) Anisocytosis (manual) Puncture Site pCO2 (35-45) mm/Hg pO2 (80-100) mm/Hg HCO3 (21-28) mmol/L ABG pH (7.35-7.45) ABG Total CO2 (22-28) mmol/L ABG O2 Saturation (95-98) % ABG Base Excess (-2.0-3.0) mmol/L ABG Hemoglobin (11.7-17.4) g/dL ABG Carboxyhemoglobin (0.5-1.5) % POC ABG HHb (Measured) (0.0-5.0) % ABG Methemoglobin (0.0-3.0) % Stephen Test A-a O2 Difference mm/Hg Respiratory Index Hgb O2 Saturation (95.0-98.0) % Vent Mode Mechanical Rate FiO2 % Tidal Volume PEEP Sodium 133 (132-148) mmol/L Potassium 3.1 L (3.6-5.2) mmol/L Chloride 96 L (98-107) mmol/L Carbon Dioxide 29 (22-30) mmol/L Anion Gap 12 (10-20) BUN 2 L (7-17) mg/dL Creatinine 0.2 L (0.7-1.2) mg/dL Est GFR ( Amer) > 60 Est GFR (Non-Af Amer) > 60 POC Glucose (mg/dL) 89 92 (65-110) mg/dL Random Glucose 86 (65-105) mg/dL Calcium 9.2 (8.6-10.4) mg/dl Phosphorus 3.5 (2.5-4.5) mg/dL Magnesium 1.3 L (1.6-2.3) mg/dL Total Bilirubin 1.4 H (0.2-1.3) mg/dL AST 21 (14-36) U/L ALT 24 (9-52) U/L Alkaline Phosphatase 102 (38-126) U/L Total Protein 5.7 L (6.3-8.3) g/dL Albumin 2.7 L (3.5-5.0) g/dL Globulin 3.0 (2.2-3.9) gm/dL Albumin/Globulin Ratio 0.9 L (1.0-2.1) Vancomycin Trough (5.0-10.0) ug/mL 09/26/17 09/26/17 09/26/17 Range/Units 06:08 06:08 05:02 WBC 15.5 H (4.8-10.8) K/uL RBC 3.38 L (3.80-5.20) Mil/uL Hgb 9.9 L (11.0-16.0) g/dL Hct 30.0 L (34.0-47.0) % MCV 88.8 (81.0-99.0) fL MCH 29.2 (27.0-31.0) pg MCHC 32.9 L (33.0-37.0) g/dL RDW 15.5 H (11.5-14.5) % Plt Count 279 (130-400) K/uL MPV 8.9 (7.2-11.7) fL Neut % (Auto) 85.0 H (50.0-75.0) % Lymph % (Auto) 7.7 L (20.0-40.0) % [place] % (Auto) 5.6 (0.0-10.0) % Eos % (Auto) 1.4 (0.0-4.0) % Baso % (Auto) 0.3 (0.0-2.0) % Neut # 13.1 H (1.8-7.0) K/uL Lymph # 1.2 (1.0-4.3) K/uL [place] # 0.9 H (0.0-0.8) K/uL Eos # 0.2 (0.0-0.7) K/uL Baso # 0.1 (0.0-0.2) K/uL Neutrophils % (Manual) 89 H (50-75) % Lymphocytes % (Manual) 5 L (20-40) % Monocytes % (Manual) 6 (0-10) % Platelet Estimate Normal (NORMAL) Polychromasia Slight Hypochromasia (manual) Slight Anisocytosis (manual) Slight Puncture Site Lr pCO2 40 (35-45) mm/Hg pO2 106 H (80-100) mm/Hg HCO3 30.7 H (21-28) mmol/L ABG pH 7.50 H (7.35-7.45) ABG Total CO2 32.4 H (22-28) mmol/L ABG O2 Saturation 99.2 H (95-98) % ABG Base Excess 7.4 H (-2.0-3.0) mmol/L ABG Hemoglobin 9.9 L (11.7-17.4) g/dL ABG Carboxyhemoglobin 1.9 H (0.5-1.5) % POC ABG HHb (Measured) 0.8 (0.0-5.0) % ABG Methemoglobin 1.4 (0.0-3.0) % Stephen Test Pos A-a O2 Difference 201.0 mm/Hg Respiratory Index 1.9 Hgb O2 Saturation 96.0 (95.0-98.0) % Vent Mode Prvc Mechanical Rate 10 FiO2 50.0 % Tidal Volume 400 PEEP 5 Sodium (132-148) mmol/L Potassium (3.6-5.2) mmol/L Chloride (98-107) mmol/L Carbon Dioxide (22-30) mmol/L Anion Gap (10-20) BUN (7-17) mg/dL Creatinine (0.7-1.2) mg/dL Est GFR ( Amer) Est GFR (Non-Af Amer) POC Glucose (mg/dL) (65-110) mg/dL Random Glucose (65-105) mg/dL Calcium (8.6-10.4) mg/dl Phosphorus (2.5-4.5) mg/dL Magnesium (1.6-2.3) mg/dL Total Bilirubin (0.2-1.3) mg/dL AST (14-36) U/L ALT (9-52) U/L Alkaline Phosphatase (38-126) U/L Total Protein (6.3-8.3) g/dL Albumin (3.5-5.0) g/dL Globulin (2.2-3.9) gm/dL Albumin/Globulin Ratio (1.0-2.1) Vancomycin Trough 40.8 H (5.0-10.0) ug/mL 09/26/17 09/26/17 09/25/17 Range/Units 04:48 00:07 17:44 WBC (4.8-10.8) K/uL RBC (3.80-5.20) Mil/uL Hgb (11.0-16.0) g/dL Hct (34.0-47.0) % MCV (81.0-99.0) fL MCH (27.0-31.0) pg MCHC (33.0-37.0) g/dL RDW (11.5-14.5) % Plt Count (130-400) K/uL MPV (7.2-11.7) fL Neut % (Auto) (50.0-75.0) % Lymph % (Auto) (20.0-40.0) % [place] % (Auto) (0.0-10.0) % Eos % (Auto) (0.0-4.0) % Baso % (Auto) (0.0-2.0) % Neut # (1.8-7.0) K/uL Lymph # (1.0-4.3) K/uL [place] # (0.0-0.8) K/uL Eos # (0.0-0.7) K/uL Baso # (0.0-0.2) K/uL Neutrophils % (Manual) (50-75) % Lymphocytes % (Manual) (20-40) % Monocytes % (Manual) (0-10) % Platelet Estimate (NORMAL) Polychromasia Hypochromasia (manual) Anisocytosis (manual) Puncture Site pCO2 (35-45) mm/Hg pO2 (80-100) mm/Hg HCO3 (21-28) mmol/L ABG pH (7.35-7.45) ABG Total CO2 (22-28) mmol/L ABG O2 Saturation (95-98) % ABG Base Excess (-2.0-3.0) mmol/L ABG Hemoglobin (11.7-17.4) g/dL ABG Carboxyhemoglobin (0.5-1.5) % POC ABG HHb (Measured) (0.0-5.0) % ABG Methemoglobin (0.0-3.0) % Stephen Test A-a O2 Difference mm/Hg Respiratory Index Hgb O2 Saturation (95.0-98.0) % Vent Mode Mechanical Rate FiO2 % Tidal Volume PEEP Sodium (132-148) mmol/L Potassium (3.6-5.2) mmol/L Chloride (98-107) mmol/L Carbon Dioxide (22-30) mmol/L Anion Gap (10-20) BUN (7-17) mg/dL Creatinine (0.7-1.2) mg/dL Est GFR ( Amer) Est GFR (Non-Af Amer) POC Glucose (mg/dL) 115 H 119 H 89 (65-110) mg/dL Random Glucose (65-105) mg/dL Calcium (8.6-10.4) mg/dl Phosphorus (2.5-4.5) mg/dL Magnesium (1.6-2.3) mg/dL Total Bilirubin (0.2-1.3) mg/dL AST (14-36) U/L ALT (9-52) U/L Alkaline Phosphatase (38-126) U/L Total Protein (6.3-8.3) g/dL Albumin (3.5-5.0) g/dL Globulin (2.2-3.9) gm/dL Albumin/Globulin Ratio (1.0-2.1) Vancomycin Trough (5.0-10.0) ug/mL Laboratory Results - last 24 hr 09/25/17 09/26/17 09/26/17 17:44 00:07 04:48 WBC RBC Hgb Hct MCV MCH MCHC RDW Plt Count MPV Neut % (Auto) Lymph % (Auto) [place] % (Auto) Eos % (Auto) Baso % (Auto) Neut # Lymph # [place] # Eos # Baso # Neutrophils % (Manual) Lymphocytes % (Manual) Monocytes % (Manual) Platelet Estimate Polychromasia Hypochromasia (manual) Anisocytosis (manual) Puncture Site pCO2 pO2 HCO3 ABG pH ABG Total CO2 ABG O2 Saturation ABG Base Excess ABG Hemoglobin ABG Carboxyhemoglobin POC ABG HHb (Measured) ABG Methemoglobin Stephen Test A-a O2 Difference Respiratory Index Hgb O2 Saturation Vent Mode Mechanical Rate FiO2 Tidal Volume PEEP Sodium Potassium Chloride Carbon Dioxide Anion Gap BUN Creatinine Est GFR ( Amer) Est GFR (Non-Af Amer) POC Glucose (mg/dL) 89 119 H 115 H Random Glucose Calcium Phosphorus Magnesium Total Bilirubin AST ALT Alkaline Phosphatase Total Protein Albumin Globulin Albumin/Globulin Ratio Vancomycin Trough 09/26/17 09/26/17 09/26/17 05:02 06:08 06:08 WBC 15.5 H RBC 3.38 L Hgb 9.9 L Hct 30.0 L MCV 88.8 MCH 29.2 MCHC 32.9 L RDW 15.5 H Plt Count 279 MPV 8.9 Neut % (Auto) 85.0 H Lymph % (Auto) 7.7 L [place] % (Auto) 5.6 Eos % (Auto) 1.4 Baso % (Auto) 0.3 Neut # 13.1 H Lymph # 1.2 [place] # 0.9 H Eos # 0.2 Baso # 0.1 Neutrophils % (Manual) 89 H Lymphocytes % (Manual) 5 L Monocytes % (Manual) 6 Platelet Estimate Normal Polychromasia Slight Hypochromasia (manual) Slight Anisocytosis (manual) Slight Puncture Site Lr pCO2 40 pO2 106 H HCO3 30.7 H ABG pH 7.50 H ABG Total CO2 32.4 H ABG O2 Saturation 99.2 H ABG Base Excess 7.4 H ABG Hemoglobin 9.9 L ABG Carboxyhemoglobin 1.9 H POC ABG HHb (Measured) 0.8 ABG Methemoglobin 1.4 Stephen Test Pos A-a O2 Difference 201.0 Respiratory Index 1.9 Hgb O2 Saturation 96.0 Vent Mode Prvc Mechanical Rate 10 FiO2 50.0 Tidal Volume 400 PEEP 5 Sodium Potassium Chloride Carbon Dioxide Anion Gap BUN Creatinine Est GFR ( Amer) Est GFR (Non-Af Amer) POC Glucose (mg/dL) Random Glucose Calcium Phosphorus Magnesium Total Bilirubin AST ALT Alkaline Phosphatase Total Protein Albumin Globulin Albumin/Globulin Ratio Vancomycin Trough 40.8 H 09/26/17 09/26/17 09/26/17 06:08 11:06 17:43 WBC RBC Hgb Hct MCV MCH MCHC RDW Plt Count MPV Neut % (Auto) Lymph % (Auto) [place] % (Auto) Eos % (Auto) Baso % (Auto) Neut # Lymph # [place] # Eos # Baso # Neutrophils % (Manual) Lymphocytes % (Manual) Monocytes % (Manual) Platelet Estimate Polychromasia Hypochromasia (manual) Anisocytosis (manual) Puncture Site pCO2 pO2 HCO3 ABG pH ABG Total CO2 ABG O2 Saturation ABG Base Excess ABG Hemoglobin ABG Carboxyhemoglobin POC ABG HHb (Measured) ABG Methemoglobin Stephen Test A-a O2 Difference Respiratory Index Hgb O2 Saturation Vent Mode Mechanical Rate FiO2 Tidal Volume PEEP Sodium 133 Potassium 3.1 L Chloride 96 L Carbon Dioxide 29 Anion Gap 12 BUN 2 L Creatinine 0.2 L Est GFR ( Amer) > 60 Est GFR (Non-Af Amer) > 60 POC Glucose (mg/dL) 92 89 Random Glucose 86 Calcium 9.2 Phosphorus 3.5 Magnesium 1.3 L Total Bilirubin 1.4 H AST 21 ALT 24 Alkaline Phosphatase 102 Total Protein 5.7 L Albumin 2.7 L Globulin 3.0 Albumin/Globulin Ratio 0.9 L Vancomycin Trough Critical Care Progress Note - Nutrition Nutrition: Nutrition Category Date Time Status NPO Diet [DIET] Diets 09/18/17 Breakfast Active Attending/Attestation - Attestation I have personally seen and examined this patient.: Yes I have fully participated in the care of the patient.: Yes I have reviewed all pertinent clinical information: Yes Notes (Text): 09/26/17 17:48 Patient seen and examined in the intensive care unit. Case discussed with house staff in the morning rounds. No change in mental status Possible terminal extubation tomorrow Continue supportive care
[2017-09-26] MEDS ORDERED: Midazolam 2 MG/2 ML VIAL IVP ONE (15:46)
--- NOTE | 2017-09-26 17:02 | CP.PCM.PN ---
Subjective - Date & Time of Evaluation Date of Evaluation: 09/26/17 Time of Evaluation: 09:00 - Subjective Subjective: remains intubated / comatose iv rx renewed prognosis poor Objective - Vital Signs/Intake and Output Vital Signs (last 24 hours): Temp Pulse Resp BP Pulse Ox 100.0 F H 114 H 17 97/59 L 100 09/26/17 04:00 09/26/17 15:02 09/26/17 15:02 09/26/17 15:02 09/26/17 15:02 Intake and Output: 09/26/17 09/26/17 06:59 18:59 Intake Total 1536.0 100 Output Total 650 Balance 886.0 100 - Medications Medications: Current Medications Acetaminophen (Tylenol 650mg/20.3ml Solution Ud) 650 mg NG Q6 PRN PRN Reason: Temperature Last Admin: 09/21/17 07:17 Dose: 650 mg Artificial Tears (Lacri-Lube) 1 gm OS Q6H PRN PRN Reason: Sedation Last Admin: 09/06/17 20:10 Dose: 1 gm Diltiazem HCl (Cardizem) 60 mg PO Q6H [facility] Last Admin: 09/26/17 14:02 Dose: Not Given Famotidine (Pepcid) 20 mg IVP Q12 [facility] Last Admin: 09/26/17 09:21 Dose: 20 mg Heparin Sodium (Porcine) (Heparin) 5,000 units SC Q12 [facility] Last Admin: 09/26/17 09:21 Dose: 5,000 units Levetiracetam 1,000 mg/ (Dextrose) 110 mls @ 440 mls/hr IVPB Q12H [facility] Last Admin: 09/26/17 05:49 Dose: 440 mls/hr Fluconazole (Diflucan Iv 200 Mg/100 Ml Ns) 100 mls @ 100 mls/hr IVPB DAILY [facility] Last Admin: 09/26/17 09:30 Dose: 100 mls/hr Propofol (Diprivan) 1,000 mg in 100 mls @ 4.998 mls/hr IV .Q20H1M PRN; Protocol ; 12.4 MCG/KG/MIN PRN Reason: TITRATE PER MD ORDER Last Admin: 09/26/17 15:09 Dose: 20 mcg/kg/min, 8.061 mls/hr Vancomycin/Sodium Chloride (Vancomycin 1 Gm/Ns 200 Ml) 1 gm in 200 mls @ 133.333 mls/hr IVPB Q8H [facility] Stop: 09/26/17 21:01 Last Admin: 09/26/17 12:47 Dose: 133.333 mls/hr Diltiazem HCl 125 mg/ Dextrose 125 mls @ 15 mls/hr IV .Q8H20M PRN; 15 MG/HR PRN Reason: Protocol Last Titration: 09/25/17 11:00 Dose: 0 mg/hr, 0 mls/hr Sodium Chloride (Sodium Chloride 0.9%) 1,000 mls @ 75 mls/hr IV .[id number] [facility] Last Admin: 09/26/17 08:30 Dose: 75 mls/hr Meropenem 1 gm/ Dextrose 100 mls @ 100 mls/hr IVPB Q8 [facility] Last Admin: 09/26/17 14:03 Dose: 100 mls/hr Metoprolol Tartrate (Lopressor) 25 mg PO Q8H [facility] Last Admin: 09/26/17 14:02 Dose: Not Given Scopolamine (Transderm-Scop) 1 patch TD Q3D [facility] Last Admin: 09/23/17 22:35 Dose: 1 patch Thiamine HCl (Vitamin B1 Inj) 100 mg IV DAILY [facility] Last Admin: 09/26/17 11:02 Dose: 100 mg - Labs Labs: 09/26/17 06:08 09/26/17 06:08 PT 16.9 SECONDS (9.7-12.2) H 09/18/17 14:01 INR 1.5 09/18/17 14:01 APTT 33 SECONDS (21-34) 09/18/17 14:01 - Head Exam Head Exam: NORMOCEPHALIC - Eye Exam Eye Exam: absent: Scleral icterus - ENT Exam ENT Exam: Mucous Membranes Dry - Neck Exam Neck Exam: absent: Lymphadenopathy - Respiratory Exam Respiratory Exam: Decreased Breath Sounds, Rhonchi - Cardiovascular Exam Cardiovascular Exam: REGULAR RHYTHM - GI/Abdominal Exam GI & Abdominal Exam: Distended Assessment and Plan (1) Anemia Status: Acute (2) Anoxic encephalopathy Status: Acute (3) Cardiac arrest Status: Acute (4) Hypokalemia Status: Acute (5) Alcohol abuse Status: Acute (6) Chest pain Status: Acute
[2017-09-27] MEDS: Sodium Chloride 0.9% 1,000 ML IV SCH ×2 (03:44→13:17)
[2017-09-27 04:16] LABS: ALKALINE PHOSPHATASE 105 U/L (38-126); ALT/SGPT 28 U/L (9-52); AST/SGOT 19 U/L (14-36); BILIRUBIN,TOTAL 1.2 mg/dL (0.2-1.3); CARBON DIOXIDE 28 mmol/L (22-30); CHLORIDE 99 mmol/L (98-107); GFR AFRICAN-AMERICAN > 60; GLUCOSE,RANDOM 83 mg/dL (65-105); MAGNESIUM 1.5 mg/dL (1.6-2.3); PHOSPHOROUS 3.4 mg/dL (2.5-4.5); POTASSIUM 3.5 mmol/L (3.6-5.2); SODIUM 134 mmol/L (132-148); TOTAL PROTEIN 6.8 g/dL (6.3-8.3)
[2017-09-27 04:17] LABS: EOS # 0.3 K/uL (0.0-0.7)
[2017-09-27 04:37] LABS: BASO % 0.3 % (0.0-2.0); EOS % 2.2 % (0.0-4.0); HEMATOCRIT 30.2 % (34.0-47.0); LYMPH # 1.5 K/uL (1.0-4.3); LYMPH % 13.4 % (20.0-40.0); MEAN CELL VOLUME 88.9 fL (81.0-99.0); MEAN CORPUSCULAR HEMOGLOBIN 28.2 pg (27.0-31.0); MEAN CORPUSCULAR HGB CONC 31.8 g/dL (33.0-37.0); MEAN PLATELET VOLUME 8.5 fL (7.2-11.7); MONO # 0.8 K/uL (0.0-0.8); RED CELL DISTRIBUTION WIDTH 14.8 % (11.5-14.5); WHITE BLOOD COUNT 11.5 K/uL (4.8-10.8)
[2017-09-27 05:02] LABS: ALB/GLOB RATIO 0.6 (1.0-2.1)
[2017-09-27 05:05] LABS: BLOOD UREA NITROGEN < 2 mg/dL (7-17)
[2017-09-27] MEDS: Meropenem 1 GM in Dextrose 5% In Water 100 ML IVPB SCH (05:15)
[2017-09-27] MEDS ORDERED: Magnesium Sulfate 1 gm in D5W 1 GM/100 ML BAG IVPB ONE (05:26)
[2017-09-27] MEDS: Propofol 10 mg/ml 1,000 MG/100 ML VIAL IV PRN ×2 (06:49→13:17)
[2017-09-27] MEDS ORDERED: Magnesium Sulfate 1 gm in D5W 1 GM/100 ML BAG IVPB SCH (08:00)
[2017-09-27] MEDS: Thiamine 100 mg/ml Inj IV SCH (09:54)
[2017-09-27] MEDS: Fluconazole IV 200mg/100 ml NS 100 ML IVPB SCH (10:17)
--- NOTE | 2017-09-27 11:02 | CP.PCM.PN ---
Subjective - Date & Time of Evaluation Date of Evaluation: 09/27/17 Time of Evaluation: 10:45 - Subjective Subjective: Progress note dictated # [id number] Objective - Vital Signs/Intake and Output Vital Signs (last 24 hours): Temp Pulse Resp BP Pulse Ox 98.1 F 125 H 18 102/68 100 09/27/17 04:00 09/27/17 09:02 09/27/17 09:02 09/27/17 09:02 09/27/17 09:02 Intake and Output: 09/27/17 09/27/17 06:59 18:59 Intake Total 1300.2 374.2 Output Total 830 160 Balance 470.2 214.2 - Medications Medications: Current Medications Acetaminophen (Tylenol 650mg/20.3ml Solution Ud) 650 mg NG Q6 PRN PRN Reason: Temperature Last Admin: 09/21/17 07:17 Dose: 650 mg Artificial Tears (Lacri-Lube) 1 gm OS Q6H PRN PRN Reason: Sedation Last Admin: 09/06/17 20:10 Dose: 1 gm Diltiazem HCl (Cardizem) 60 mg PO Q6H [facility] Last Admin: 09/27/17 05:16 Dose: Not Given Famotidine (Pepcid) 20 mg IVP Q12 [facility] Last Admin: 09/27/17 09:53 Dose: 20 mg Heparin Sodium (Porcine) (Heparin) 5,000 units SC Q12 [facility] Last Admin: 09/27/17 09:55 Dose: 5,000 units Fluconazole (Diflucan Iv 200 Mg/100 Ml Ns) 100 mls @ 100 mls/hr IVPB DAILY [facility] Last Admin: 09/27/17 10:17 Dose: 100 mls/hr Propofol (Diprivan) 1,000 mg in 100 mls @ 4.998 mls/hr IV .Q20H1M PRN; Protocol ; 12.4 MCG/KG/MIN PRN Reason: TITRATE PER MD ORDER Last Admin: 09/27/17 06:49 Dose: 30.02 mcg/kg/min, 12.1 mls/hr Diltiazem HCl 125 mg/ Dextrose 125 mls @ 15 mls/hr IV .Q8H20M PRN; 15 MG/HR PRN Reason: Protocol Last Titration: 09/25/17 11:00 Dose: 0 mg/hr, 0 mls/hr Sodium Chloride (Sodium Chloride 0.9%) 1,000 mls @ 75 mls/hr IV .[id number] [facility] Last Admin: 09/27/17 03:44 Dose: Not Given Levetiracetam 1,000 mg/ Sodium (Chloride) 110 mls @ 440 mls/hr IVPB Q12H [facility] Meropenem 1 gm/ Sodium (Chloride) 100 mls @ 100 mls/hr IVPB Q8 [facility] Metoprolol Tartrate (Lopressor) 25 mg PO Q8H [facility] Last Admin: 09/27/17 05:16 Dose: Not Given Scopolamine (Transderm-Scop) 1 patch TD Q3D [facility] Last Admin: 09/26/17 21:51 Dose: 1 patch Thiamine HCl (Vitamin B1 Inj) 100 mg IV DAILY [facility] Last Admin: 09/27/17 09:54 Dose: 100 mg - Labs Labs: 09/27/17 04:00 09/27/17 04:00 PT 16.9 SECONDS (9.7-12.2) H 09/18/17 14:01 INR 1.5 09/18/17 14:01 APTT 33 SECONDS (21-34) 09/18/17 14:01
--- NOTE | 2017-09-27 12:04 | CP.CCUPN ---
<Liset Massey - Last Filed: 09/27/17 12:46> CCU Subjective - Physician Review Subjective (Free Text): Patient seen and examined at bedside. Patient currently intubated. ROS unobtainable due to patient's current clinical status. CCU Objective - Vital Signs / Intake & Output Vital Signs (Last 4 hours): Vital Signs Pulse Resp BP Pulse Ox 09/27/17 09:02 125 H 18 102/68 100 Intake and Output (Last 8hrs): Intake & Output 09/26/17 09/27/17 09/27/17 22:59 06:59 14:59 Intake Total 1052.7 846.8 374.2 Output Total 665 545 160 Balance 387.7 301.8 214.2 Weight 154 lb 4.8 oz Intake: IV 135 100 Intake, IV Amount 917.7 746.8 374.2 Right Distal Port 92.7 96.8 24.2 Internal Jugular Right Proximal Port 200 200 Internal Jugular Right Wrist 625 650 150 Output: Urine 665 545 160 Urethral (Andino) 665 545 160 Other: # Bowel Movements 1 1 - Physical Exam Head: Positive for: Atraumatic, Normocephalic Pupils: Positive for: Sluggish Extroacular Muscles: Negative for: EOMI Mouth: Positive for: Moist Mucous Membranes Respiratory/Chest: Positive for: Good Air Exchange, Rhonchi, Other ( subcutaneous emphysema ) Cardiovascular: Positive for: Normal S1, S2, Tachycardic Abdomen: Positive for: Distention, Normal Bowel Sounds. Negative for: Tenderness Upper Extremity: Negative for: Edema Lower Extremity: Negative for: Edema Neurological: Negative for: GCS=15, CN II-XII Intact, Speech Normal Skin: Positive for: Normal Color Psychiatric: Negative for: Alert, Oriented x 3 - Medications Active Medications: Active Medications Generic Name Dose Route Start Last Admin Trade Name Freq PRN Reason Stop Dose Admin Acetaminophen 650 mg 09/15/17 03:51 09/21/17 07:17 Tylenol 650mg/20.3ml Solution Ud NG 650 mg Q6 PRN Administration Temperature Artificial Tears 1 gm 08/31/17 12:00 09/06/17 20:10 Lacri-Lube OS 1 gm Q6H PRN Administration Sedation Diltiazem HCl 60 mg 09/25/17 12:00 09/27/17 05:16 Cardizem PO Not Given Q6H EUSEBIO Famotidine 20 mg 09/21/17 10:45 09/27/17 09:53 Pepcid IVP 20 mg Q12 EUSEBIO Administration Heparin Sodium (Porcine) 5,000 units 09/14/17 12:30 09/27/17 09:55 Heparin SC 5,000 units Q12 EUSEBIO Administration Fluconazole 100 mls @ 100 mls/hr 09/17/17 10:30 09/27/17 10:17 Diflucan Iv 200 Mg/100 Ml Ns IVPB 100 mls/hr DAILY EUSEBIO Administration Propofol 1,000 mg in 100 mls @ 4.998 mls/hr 09/18/17 13:13 09/27/17 06:49 Diprivan IV 30.02 mcg/kg/min .Q20H1M PRN 12.1 mls/hr TITRATE PER MD ORDER Administration Protocol 12.4 MCG/KG/MIN Diltiazem HCl 125 mg/ Dextrose 125 mls @ 15 mls/hr 09/22/17 08:45 09/25/17 11 :00 IV 0 mg/hr .Q8H20M PRN 0 mls/hr Protocol Titration 15 MG/HR Sodium Chloride 1,000 mls @ 75 mls/hr 09/22/17 13:17 09/27/17 03:44 Sodium Chloride 0.9% IV Not Given .[id number] EUSEBIO Levetiracetam 1,000 mg/ Sodium 110 mls @ 440 mls/hr 09/27/17 18:00 Chloride IVPB Q12H EUSEBIO Meropenem 1 gm/ Sodium 100 mls @ 100 mls/hr 09/27/17 14:00 Chloride IVPB Q8 EUSEBIO Metoprolol Tartrate 25 mg 09/13/17 13:00 09/27/17 05:16 Lopressor PO Not Given Q8H EUSEBIO Scopolamine 1 patch 09/14/17 22:00 09/26/17 21:51 Transderm-Scop TD 1 patch Q3D EUSEBIO Administration Thiamine HCl 100 mg 08/30/17 22:15 09/27/17 09:54 Vitamin B1 Inj IV 100 mg DAILY EUSEBIO Administration - Patient Studies Lab Studies: Microbiology Studies 09/22/17 11:00 Blood Culture - Preliminary Blood-Venous NO GROWTH AFTER 4 DAYS 09/22/17 11:30 Blood Culture - Preliminary Blood-Venous NO GROWTH AFTER 4 DAYS Lab Studies 09/27/17 09/27/17 09/27/17 Range/Units 11:45 04:00 04:00 WBC (4.8-10.8) K/uL RBC (3.80-5.20) Mil/uL Hgb (11.0-16.0) g/dL Hct (34.0-47.0) % MCV (81.0-99.0) fL MCH (27.0-31.0) pg MCHC (33.0-37.0) g/dL RDW (11.5-14.5) % Plt Count (130-400) K/uL MPV (7.2-11.7) fL Neut % (Auto) (50.0-75.0) % Lymph % (Auto) (20.0-40.0) % [place] % (Auto) (0.0-10.0) % Eos % (Auto) (0.0-4.0) % Baso % (Auto) (0.0-2.0) % Neut # (1.8-7.0) K/uL Lymph # (1.0-4.3) K/uL [place] # (0.0-0.8) K/uL Eos # (0.0-0.7) K/uL Baso # (0.0-0.2) K/uL Sodium 134 (132-148) mmol/L Potassium 3.5 L (3.6-5.2) mmol/L Chloride 99 (98-107) mmol/L Carbon Dioxide 28 (22-30) mmol/L Anion Gap 11 (10-20) BUN < 2 L (7-17) mg/dL Creatinine 0.2 L (0.7-1.2) mg/dL Est GFR ( Amer) > 60 Est GFR (Non-Af Amer) > 60 POC Glucose (mg/dL) 101 (65-110) mg/dL Random Glucose 83 (65-105) mg/dL Calcium 9.0 (8.6-10.4) mg/dl Phosphorus 3.4 (2.5-4.5) mg/dL Magnesium 1.5 L (1.6-2.3) mg/dL Total Bilirubin 1.2 (0.2-1.3) mg/dL AST 19 (14-36) U/L ALT 28 (9-52) U/L Alkaline Phosphatase 105 (38-126) U/L Total Protein 6.8 (6.3-8.3) g/dL Albumin 2.6 L (3.5-5.0) g/dL Globulin 4.1 H (2.2-3.9) gm/dL Albumin/Globulin Ratio 0.6 L (1.0-2.1) Vancomycin Trough 11.0 H (5.0-10.0) ug/mL 09/27/17 09/27/17 09/26/17 Range/Units 04:00 00:23 19:58 WBC 11.5 H (4.8-10.8) K/uL RBC 3.40 L (3.80-5.20) Mil/uL Hgb 9.6 L (11.0-16.0) g/dL Hct 30.2 L (34.0-47.0) % MCV 88.9 (81.0-99.0) fL MCH 28.2 (27.0-31.0) pg MCHC 31.8 L (33.0-37.0) g/dL RDW 14.8 H (11.5-14.5) % Plt Count 261 (130-400) K/uL MPV 8.5 (7.2-11.7) fL Neut % (Auto) 77.1 H (50.0-75.0) % Lymph % (Auto) 13.4 L (20.0-40.0) % [place] % (Auto) 7.0 (0.0-10.0) % Eos % (Auto) 2.2 (0.0-4.0) % Baso % (Auto) 0.3 (0.0-2.0) % Neut # 8.9 H (1.8-7.0) K/uL Lymph # 1.5 (1.0-4.3) K/uL [place] # 0.8 (0.0-0.8) K/uL Eos # 0.3 (0.0-0.7) K/uL Baso # 0.0 (0.0-0.2) K/uL Sodium (132-148) mmol/L Potassium (3.6-5.2) mmol/L Chloride (98-107) mmol/L Carbon Dioxide (22-30) mmol/L Anion Gap (10-20) BUN (7-17) mg/dL Creatinine (0.7-1.2) mg/dL Est GFR ( Amer) Est GFR (Non-Af Amer) POC Glucose (mg/dL) 95 (65-110) mg/dL Random Glucose (65-105) mg/dL Calcium (8.6-10.4) mg/dl Phosphorus (2.5-4.5) mg/dL Magnesium (1.6-2.3) mg/dL Total Bilirubin (0.2-1.3) mg/dL AST (14-36) U/L ALT (9-52) U/L Alkaline Phosphatase (38-126) U/L Total Protein (6.3-8.3) g/dL Albumin (3.5-5.0) g/dL Globulin (2.2-3.9) gm/dL Albumin/Globulin Ratio (1.0-2.1) Vancomycin Trough 18.4 H (5.0-10.0) ug/mL 09/26/17 09/26/17 Range/Units 17:43 11:06 WBC (4.8-10.8) K/uL RBC (3.80-5.20) Mil/uL Hgb (11.0-16.0) g/dL Hct (34.0-47.0) % MCV (81.0-99.0) fL MCH (27.0-31.0) pg MCHC (33.0-37.0) g/dL RDW (11.5-14.5) % Plt Count (130-400) K/uL MPV (7.2-11.7) fL Neut % (Auto) (50.0-75.0) % Lymph % (Auto) (20.0-40.0) % [place] % (Auto) (0.0-10.0) % Eos % (Auto) (0.0-4.0) % Baso % (Auto) (0.0-2.0) % Neut # (1.8-7.0) K/uL Lymph # (1.0-4.3) K/uL [place] # (0.0-0.8) K/uL Eos # (0.0-0.7) K/uL Baso # (0.0-0.2) K/uL Sodium (132-148) mmol/L Potassium (3.6-5.2) mmol/L Chloride (98-107) mmol/L Carbon Dioxide (22-30) mmol/L Anion Gap (10-20) BUN (7-17) mg/dL Creatinine (0.7-1.2) mg/dL Est GFR ( Amer) Est GFR (Non-Af Amer) POC Glucose (mg/dL) 89 92 (65-110) mg/dL Random Glucose (65-105) mg/dL Calcium (8.6-10.4) mg/dl Phosphorus (2.5-4.5) mg/dL Magnesium (1.6-2.3) mg/dL Total Bilirubin (0.2-1.3) mg/dL AST (14-36) U/L ALT (9-52) U/L Alkaline Phosphatase (38-126) U/L Total Protein (6.3-8.3) g/dL Albumin (3.5-5.0) g/dL Globulin (2.2-3.9) gm/dL Albumin/Globulin Ratio (1.0-2.1) Vancomycin Trough (5.0-10.0) ug/mL Laboratory Results - last 24 hr 09/26/17 09/26/17 09/26/17 11:06 17:43 19:58 WBC RBC Hgb Hct MCV MCH MCHC RDW Plt Count MPV Neut % (Auto) Lymph % (Auto) [place] % (Auto) Eos % (Auto) Baso % (Auto) Neut # Lymph # [place] # Eos # Baso # Sodium Potassium Chloride Carbon Dioxide Anion Gap BUN Creatinine Est GFR ( Amer) Est GFR (Non-Af Amer) POC Glucose (mg/dL) 92 89 Random Glucose Calcium Phosphorus Magnesium Total Bilirubin AST ALT Alkaline Phosphatase Total Protein Albumin Globulin Albumin/Globulin Ratio Vancomycin Trough 18.4 H 09/27/17 09/27/17 09/27/17 00:23 04:00 04:00 WBC 11.5 H RBC 3.40 L Hgb 9.6 L Hct 30.2 L MCV 88.9 MCH 28.2 MCHC 31.8 L RDW 14.8 H Plt Count 261 MPV 8.5 Neut % (Auto) 77.1 H Lymph % (Auto) 13.4 L [place] % (Auto) 7.0 Eos % (Auto) 2.2 Baso % (Auto) 0.3 Neut # 8.9 H Lymph # 1.5 [place] # 0.8 Eos # 0.3 Baso # 0.0 Sodium 134 Potassium 3.5 L Chloride 99 Carbon Dioxide 28 Anion Gap 11 BUN < 2 L Creatinine 0.2 L Est GFR ( Amer) > 60 Est GFR (Non-Af Amer) > 60 POC Glucose (mg/dL) 95 Random Glucose 83 Calcium 9.0 Phosphorus 3.4 Magnesium 1.5 L Total Bilirubin 1.2 AST 19 ALT 28 Alkaline Phosphatase 105 Total Protein 6.8 Albumin 2.6 L Globulin 4.1 H Albumin/Globulin Ratio 0.6 L Vancomycin Trough 09/27/17 09/27/17 04:00 11:45 WBC RBC Hgb Hct MCV MCH MCHC RDW Plt Count MPV Neut % (Auto) Lymph % (Auto) [place] % (Auto) Eos % (Auto) Baso % (Auto) Neut # Lymph # [place] # Eos # Baso # Sodium Potassium Chloride Carbon Dioxide Anion Gap BUN Creatinine Est GFR ( Amer) Est GFR (Non-Af Amer) POC Glucose (mg/dL) 101 Random Glucose Calcium Phosphorus Magnesium Total Bilirubin AST ALT Alkaline Phosphatase Total Protein Albumin Globulin Albumin/Globulin Ratio Vancomycin Trough 11.0 H Fingerstick Blood Sugar Results: 123 Review of Systems - Review of Systems Systems not reviewed;Unavailable: Intubated Critical Care Progress Note - Nutrition Nutrition: Nutrition Category Date Time Status NPO Diet [DIET] Diets 09/18/17 Breakfast Active Assessment/Plan - Assessment and Plan (Free Text) Assessment: 36 year old female with past medical history of anemia and alcohol abuse, who was found unconscious by . EMS was called and patient was found to be in Asystole, ACLS protocol was initiated and 2 rounds of epinephrine and then ROSC. Patient was unconscious in the ED. Subsequently, patient was admitted to the ICU and hypothermia protocol was initiated. Today's Plan: Daughter has agreed to comfort care measures and plans to terminally extubate today, 09/27/17 Plan: Neuro: Intubated, Acute seizures Neurologist, Dr. Pugh---> help appreciated * Management as per recommendation Medication/Management: * Keppra 1000mg IV Q12H * Propofol (Titratable) Imaging: * EEG (08/31/17): globally abnormal EEG because of persistent spike and wave activities consistent with status epilepticus. Please correlate the findings with neurological and radiological studies * Cerebral blood flow (09/03/17): does not conform to nuclear medicine diagnosis of brain . There is a faint cerebral flow, the study is considered technically suboptimal for reasons related to technique and poor visualization of carotid arteries. * CT head w/o contrast (09/03/17): No mass effect or edema. No atrophy or chronic microvascular. * EEG (09/06): status epilepticus * head CT (09/12/17): asymmetric low attenuation in the L basal ganglia could represent anoxic injury. Mild global parenchymal volume loss, advanced for the patient's age. Cardio: Cardiopulmonary Arrest, tachycardia Management: * Intubated * Hypothermia protocol was initiated * Lopressor 25mg po q8h * Cardizem drip started (09/17) * Cardizem 60 mg QID Pulm: Respiratory distress secondary to cardiac arrest, intubated * Intubated * sputum culture: staph * D Dimer: [id number] * CTA: no evidence of PE, bibasilar consolidation. Upper lobe interstitial infiltrates. 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 Plaza consulted, help appreciated * 09/20 CTA head and neck: extensive soft tissue air, including air in retropharyngeal space. deep soft tissue defect in the midline anterior neck soft tissues which extends from the skin surface to the anterior wall of the trachee. Cannot exclude tracheocutaneous fistula, secondary to a focal tracheal rupture or injury. This could be the cause of the soft tissue gas. An ET tube is in place. Extensive pneumomediastinum, left orbital emphysema, findings highly suspicious for diffuse left otomastoiditis. * Dr. Dockery d/c trach on 09/21 and orally intubated with cuff placement distal to site of fistula * as per Dr. Dockery patient to receive extended trach which will bypass fistula GI: Diarrhea * C. Dif negative (09/03) * repeat C. dif (09/17) negative * Dr. Hernandez consulted for PEG placement, because of TE fistula probably better to surgically placed G tube * Dr. Skinner agrees that PEG cannot be done due to TE fistula, surgical PEG to be considered * IR consulted for PEG eval, help appreciated Renal: Electrolyte imbalance Nephrology, Dr. Ramos---> Help appreciated * Management as per recommendation * electrolytes repleted as needed Heme: anemia * H/H: on 09/12 dropped to 7.3/22.5 from 8.1/24.5- patient was transfused 2 u PRBCs * H/H: 9.8/30.4 * 09/18- INR: 1.8, 2u FFP transfused and Vit K 10mg sc given * 09/19: INR: 1.5, 2 units FFP HgB dropped to 8.3 from 9.8, transfuse 1 u PRBCs * 09/24: stable H/H: 10.4/ 31.4 ID: * sputum: staph aureus * Merrem 1 gm q8h (started on 09/22) * Vancomycin 1gm q12h * f/u random vanco * 09/12: repeat cultures: urine- yeast species, blood negative * Diflucan 200mg daily * repeat sputum culture on 09/19: MRSA * repeat blood culture 09/19: no growth Psych: Alcohol abuse disorder * Thiamine 100mg IV daily Prophylaxis measures: * R IJ in place * DVT: SCDs, Heparin 5,000 units SC Q12H * GI: Protonix 40mg IV daily * tube feeds: jevity Disposition: Patient's prognosis remains poor, her daughter communicated that she would come to the hospital today between 3pm and 4pm for a family meeting to discuss terminal extubation <Daysi Nguyen - Last Filed: 09/27/17 17:50> CCU Subjective - Physician Review Critical Care Time Spent (in minutes): 65 CCU Objective - Vital Signs / Intake & Output Vital Signs (Last 4 hours): Vital Signs Pulse Resp BP Pulse Ox 09/27/17 17:02 127 H 19 111/81 100 09/27/17 16:02 118 H 22 119/83 100 09/27/17 15:03 130 H 18 110/83 100 09/27/17 14:18 104/72 09/27/17 14:02 128 H 21 104/72 99 Intake and Output (Last 8hrs): Intake & Output 09/27/17 09/27/17 09/27/17 06:59 14:59 22:59 Intake Total 846.8 474.2 Output Total 545 160 Balance 301.8 314.2 Weight 154 lb 4.8 oz Intake: IV 100 100 Intake, IV Amount 746.8 374.2 Right Distal Port 96.8 24.2 Internal Jugular Right Proximal Port 200 Internal Jugular Right Wrist 650 150 Output: Urine 545 160 Urethral (Andino) 545 160 Other: # Bowel Movements 1 - Medications Active Medications: Active Medications Generic Name Dose Route Start Last Admin Trade Name Freq PRN Reason Stop Dose Admin Acetaminophen 650 mg 09/15/17 03:51 09/21/17 07:17 Tylenol 650mg/20.3ml Solution Ud NG 650 mg Q6 PRN Administration Temperature Artificial Tears 1 gm 08/31/17 12:00 09/06/17 20:10 Lacri-Lube OS 1 gm Q6H PRN Administration Sedation Diltiazem HCl 60 mg 09/25/17 12:00 09/27/17 14:18 Cardizem PO 60 mg Q6H EUSEBIO Administration Famotidine 20 mg 09/21/17 10:45 09/27/17 09:53 Pepcid IVP 20 mg Q12 EUSEBIO Administration Heparin Sodium (Porcine) 5,000 units 09/14/17 12:30 09/27/17 09:55 Heparin SC 5,000 units Q12 EUSEBIO Administration Fluconazole 100 mls @ 100 mls/hr 09/17/17 10:30 09/27/17 10:17 Diflucan Iv 200 Mg/100 Ml Ns IVPB 100 mls/hr DAILY EUSEBIO Administration Propofol 1,000 mg in 100 mls @ 4.998 mls/hr 09/18/17 13:13 09/27/17 13:17 Diprivan IV 30.02 mcg/kg/min .Q20H1M PRN 12.1 mls/hr TITRATE PER MD ORDER Administration Protocol 12.4 MCG/KG/MIN Diltiazem HCl 125 mg/ Dextrose 125 mls @ 15 mls/hr 09/22/17 08:45 09/25/17 11 :00 IV 0 mg/hr .Q8H20M PRN 0 mls/hr Protocol Titration 15 MG/HR Sodium Chloride 1,000 mls @ 75 mls/hr 09/22/17 13:17 09/27/17 13:17 Sodium Chloride 0.9% IV 75 mls/hr .[id number] EUSEBIO Administration Levetiracetam 1,000 mg/ Sodium 110 mls @ 440 mls/hr 09/27/17 18:00 Chloride IVPB Q12H EUSEBIO Meropenem 1 gm/ Sodium 100 mls @ 100 mls/hr 09/27/17 14:00 09/27/17 14:19 Chloride IVPB 100 mls/hr Q8 EUSEBIO Administration Fentanyl Citrate 2,500 mcg/ 250 mls @ 13.99 mls/hr 09/27/17 16:30 Sodium Chloride IV .[id number] EUSEBIO Protocol 2 MCG/KG/HR Metoprolol Tartrate 25 mg 09/13/17 13:00 09/27/17 14:18 Lopressor PO 25 mg Q8H EUSEBIO Administration Scopolamine 1 patch 09/14/17 22:00 09/26/17 21:51 Transderm-Scop TD 1 patch Q3D EUSEBIO Administration Thiamine HCl 100 mg 08/30/17 22:15 09/27/17 09:54 Vitamin B1 Inj IV 100 mg DAILY EUSEBIO Administration - Patient Studies Lab Studies: Microbiology Studies 09/22/17 11:00 Blood Culture - Final Blood-Venous NO GROWTH AFTER 5 DAYS Gram Stain - Final TEST NOT PERFORMED 09/22/17 11:30 Blood Culture - Final Blood-Venous NO GROWTH AFTER 5 DAYS Gram Stain - Final TEST NOT PERFORMED Lab Studies 09/27/17 09/27/17 09/27/17 Range/Units 11:45 04:00 04:00 WBC (4.8-10.8) K/uL RBC (3.80-5.20) Mil/uL Hgb (11.0-16.0) g/dL Hct (34.0-47.0) % MCV (81.0-99.0) fL MCH (27.0-31.0) pg MCHC (33.0-37.0) g/dL RDW (11.5-14.5) % Plt Count (130-400) K/uL MPV (7.2-11.7) fL Neut % (Auto) (50.0-75.0) % Lymph % (Auto) (20.0-40.0) % [place] % (Auto) (0.0-10.0) % Eos % (Auto) (0.0-4.0) % Baso % (Auto) (0.0-2.0) % Neut # (1.8-7.0) K/uL Lymph # (1.0-4.3) K/uL [place] # (0.0-0.8) K/uL Eos # (0.0-0.7) K/uL Baso # (0.0-0.2) K/uL Sodium 134 (132-148) mmol/L Potassium 3.5 L (3.6-5.2) mmol/L Chloride 99 (98-107) mmol/L Carbon Dioxide 28 (22-30) mmol/L Anion Gap 11 (10-20) BUN < 2 L (7-17) mg/dL Creatinine 0.2 L (0.7-1.2) mg/dL Est GFR ( Amer) > 60 Est GFR (Non-Af Amer) > 60 POC Glucose (mg/dL) 101 (65-110) mg/dL Random Glucose 83 (65-105) mg/dL Calcium 9.0 (8.6-10.4) mg/dl Phosphorus 3.4 (2.5-4.5) mg/dL Magnesium 1.5 L (1.6-2.3) mg/dL Total Bilirubin 1.2 (0.2-1.3) mg/dL AST 19 (14-36) U/L ALT 28 (9-52) U/L Alkaline Phosphatase 105 (38-126) U/L Total Protein 6.8 (6.3-8.3) g/dL Albumin 2.6 L (3.5-5.0) g/dL Globulin 4.1 H (2.2-3.9) gm/dL Albumin/Globulin Ratio 0.6 L (1.0-2.1) Vancomycin Trough 11.0 H (5.0-10.0) ug/mL 09/27/17 09/27/17 09/26/17 Range/Units 04:00 00:23 19:58 WBC 11.5 H (4.8-10.8) K/uL RBC 3.40 L (3.80-5.20) Mil/uL Hgb 9.6 L (11.0-16.0) g/dL Hct 30.2 L (34.0-47.0) % MCV 88.9 (81.0-99.0) fL MCH 28.2 (27.0-31.0) pg MCHC 31.8 L (33.0-37.0) g/dL RDW 14.8 H (11.5-14.5) % Plt Count 261 (130-400) K/uL MPV 8.5 (7.2-11.7) fL Neut % (Auto) 77.1 H (50.0-75.0) % Lymph % (Auto) 13.4 L (20.0-40.0) % [place] % (Auto) 7.0 (0.0-10.0) % Eos % (Auto) 2.2 (0.0-4.0) % Baso % (Auto) 0.3 (0.0-2.0) % Neut # 8.9 H (1.8-7.0) K/uL Lymph # 1.5 (1.0-4.3) K/uL [place] # 0.8 (0.0-0.8) K/uL Eos # 0.3 (0.0-0.7) K/uL Baso # 0.0 (0.0-0.2) K/uL Sodium (132-148) mmol/L Potassium (3.6-5.2) mmol/L Chloride (98-107) mmol/L Carbon Dioxide (22-30) mmol/L Anion Gap (10-20) BUN (7-17) mg/dL Creatinine (0.7-1.2) mg/dL Est GFR ( Amer) Est GFR (Non-Af Amer) POC Glucose (mg/dL) 95 (65-110) mg/dL Random Glucose (65-105) mg/dL Calcium (8.6-10.4) mg/dl Phosphorus (2.5-4.5) mg/dL Magnesium (1.6-2.3) mg/dL Total Bilirubin (0.2-1.3) mg/dL AST (14-36) U/L ALT (9-52) U/L Alkaline Phosphatase (38-126) U/L Total Protein (6.3-8.3) g/dL Albumin (3.5-5.0) g/dL Globulin (2.2-3.9) gm/dL Albumin/Globulin Ratio (1.0-2.1) Vancomycin Trough 18.4 H (5.0-10.0) ug/mL 09/26/17 Range/Units 17:43 WBC (4.8-10.8) K/uL RBC (3.80-5.20) Mil/uL Hgb (11.0-16.0) g/dL Hct (34.0-47.0) % MCV (81.0-99.0) fL MCH (27.0-31.0) pg MCHC (33.0-37.0) g/dL RDW (11.5-14.5) % Plt Count (130-400) K/uL MPV (7.2-11.7) fL Neut % (Auto) (50.0-75.0) % Lymph % (Auto) (20.0-40.0) % [place] % (Auto) (0.0-10.0) % Eos % (Auto) (0.0-4.0) % Baso % (Auto) (0.0-2.0) % Neut # (1.8-7.0) K/uL Lymph # (1.0-4.3) K/uL [place] # (0.0-0.8) K/uL Eos # (0.0-0.7) K/uL Baso # (0.0-0.2) K/uL Sodium (132-148) mmol/L Potassium (3.6-5.2) mmol/L Chloride (98-107) mmol/L Carbon Dioxide (22-30) mmol/L Anion Gap (10-20) BUN (7-17) mg/dL Creatinine (0.7-1.2) mg/dL Est GFR ( Amer) Est GFR (Non-Af Amer) POC Glucose (mg/dL) 89 (65-110) mg/dL Random Glucose (65-105) mg/dL Calcium (8.6-10.4) mg/dl Phosphorus (2.5-4.5) mg/dL Magnesium (1.6-2.3) mg/dL Total Bilirubin (0.2-1.3) mg/dL AST (14-36) U/L ALT (9-52) U/L Alkaline Phosphatase (38-126) U/L Total Protein (6.3-8.3) g/dL Albumin (3.5-5.0) g/dL Globulin (2.2-3.9) gm/dL Albumin/Globulin Ratio (1.0-2.1) Vancomycin Trough (5.0-10.0) ug/mL Laboratory Results - last 24 hr 09/26/17 09/26/17 09/27/17 17:43 19:58 00:23 WBC RBC Hgb Hct MCV MCH MCHC RDW Plt Count MPV Neut % (Auto) Lymph % (Auto) [place] % (Auto) Eos % (Auto) Baso % (Auto) Neut # Lymph # [place] # Eos # Baso # Sodium Potassium Chloride Carbon Dioxide Anion Gap BUN Creatinine Est GFR ( Amer) Est GFR (Non-Af Amer) POC Glucose (mg/dL) 89 95 Random Glucose Calcium Phosphorus Magnesium Total Bilirubin AST ALT Alkaline Phosphatase Total Protein Albumin Globulin Albumin/Globulin Ratio Vancomycin Trough 18.4 H 09/27/17 09/27/17 09/27/17 04:00 04:00 04:00 WBC 11.5 H RBC 3.40 L Hgb 9.6 L Hct 30.2 L MCV 88.9 MCH 28.2 MCHC 31.8 L RDW 14.8 H Plt Count 261 MPV 8.5 Neut % (Auto) 77.1 H Lymph % (Auto) 13.4 L [place] % (Auto) 7.0 Eos % (Auto) 2.2 Baso % (Auto) 0.3 Neut # 8.9 H Lymph # 1.5 [place] # 0.8 Eos # 0.3 Baso # 0.0 Sodium 134 Potassium 3.5 L Chloride 99 Carbon Dioxide 28 Anion Gap 11 BUN < 2 L Creatinine 0.2 L Est GFR ( Amer) > 60 Est GFR (Non-Af Amer) > 60 POC Glucose (mg/dL) Random Glucose 83 Calcium 9.0 Phosphorus 3.4 Magnesium 1.5 L Total Bilirubin 1.2 AST 19 ALT 28 Alkaline Phosphatase 105 Total Protein 6.8 Albumin 2.6 L Globulin 4.1 H Albumin/Globulin Ratio 0.6 L Vancomycin Trough 11.0 H 09/27/17 11:45 WBC RBC Hgb Hct MCV MCH MCHC RDW Plt Count MPV Neut % (Auto) Lymph % (Auto) [place] % (Auto) Eos % (Auto) Baso % (Auto) Neut # Lymph # [place] # Eos # Baso # Sodium Potassium Chloride Carbon Dioxide Anion Gap BUN Creatinine Est GFR ( Amer) Est GFR (Non-Af Amer) POC Glucose (mg/dL) 101 Random Glucose Calcium Phosphorus Magnesium Total Bilirubin AST ALT Alkaline Phosphatase Total Protein Albumin Globulin Albumin/Globulin Ratio Vancomycin Trough Critical Care Progress Note - Nutrition Nutrition: Nutrition Category Date Time Status NPO Diet [DIET] Diets 09/18/17 Breakfast Active Assessment/Plan - Assessment and Plan (Free Text) Assessment: Addendum: Patient seen and examined at bedside with above resident. Resident has documented my clinical findings and clinical managmenent. -ANoxic brain injury -Acute hypoxic respiratory failure -SVT -hypopotassemia I have spent more than 65 minutes managing patient coordinating care with Palliative, family and daughter. I had a very long discussion with family ( , daughter). I ahve discussed at length with the family, theri request for the withdrawal of life-sustaining treatment and I agree with their decision. The discussion had all the details of a conversation to obtain an informed refusal to consent, including but not limited to, disclosure of the alternatives to the withdrawal of life sustaining treatment, and the risks and benefits to the patient, therby permitting the family to make an informed decisoin. At the health care agent's/family's request and in accordance with patient's wishes, life sustaining treatment will be withdrawn. The patient's faimly understands that in all probability, the patient will . cc time spent 65 minutes
[2017-09-27] MEDS ORDERED: Meropenem 1 GM in Sodium Chloride 0.9% 100 ML IVPB SCH (14:00)
--- NOTE | 2017-09-27 16:30 | PN ---
DATE: 09/26/2017 SUBJECTIVE: The patient was seen and examined at bedside. The patient's condition remains the same, remains intubated, having involuntary jerky movements and involuntary eyelid movements noted. PHYSICAL EXAMINATION: VITAL SIGNS: Blood pressure 103/72, pulse 116, temperature 99.6, O2 sats 97%on tidal volume 400, FiO2 of 50%, sed rate of 50 and PEEP of 5, and respiratory rate 23. Intake is 3020 and output is 1570. HEENT: Pupils sluggishly reacting to light. No icterus. Positive pallor. ET tube and gastric tube in the oral cavity. NECK: Supple. Tracheal site with dressing in place. LUNGS: Bilateral vesicular breath sounds. Bilateral basilar crackles. CARDIOVASCULAR: S1, S2 present. Tachycardic. ABDOMEN: Soft, nontender. Bowel sounds are present. CENTRAL NERVOUS SYSTEM: Intubated, unresponsive. Not responding to deep painful stimuli. Not moving any of the extremities. Involuntary twitching of the upper and lower extremities and upper eyelids. Involuntary eye opening. EXTREMITIES: No edema. MEDICATIONS: Include Tylenol, artificial tears, Cardizem 60 mg p.o. q. 6 hours, Pepcid 20 mg IV push q. 12 hours, Diflucan 200 mg daily, meropenem 1 g IV q. 8 hours, vancomycin 1 g IV q. 8 hours, subcu heparin for DVT prophylaxis, Keppra 1 g twice daily, and IV fluids. LABORATORY DATA: From this morning, WBC 15.5, hemoglobin 9.9, hematocrit 30, platelets 279. Sodium 133, potassium 3.1, chloride 96, bicarbonate 29, BUN 2, creatinine 0.2, glucose 115, calcium 9.2, phosphorus 3.5, magnesium 1.3, total bilirubin 1.4, AST 21, ALT 24, alkaline phosphatase 102, total protein 5.7, and albumin 2.7. Vancomycin trough 40. Repeat blood cultures. Urine culture negative so far. 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 Electrolytes are being replaced. Received multiple blood transfusions, H and H remains fairly stable. Yeast urinary tract infection, now resolved on multiple antibiotics. Staphylococcus aureus in the tracheal aspirate. Repeat cultures remained negative. On antiseizure medications. Neurologic status remains the same with anoxic brain injury, unresponsive. Continue with ventilatory support, keep SaO2 more than 90%. Continue with current antibiotics. For possible terminal extubation and withdrawal of support as per family wishes tomorrow. I spoke to the patient's daughter Marion this afternoon. She connected her aunt Isabel to talk to me on a three-way phone call. The family is trying to come to the hospital tomorrow and decide on terminal extubation and withdrawal of life support. We will await the patient's family's wishes. Until family's decision is made, we will continue with aggressive management. Continue with current medication. Repeat labs in a.m. The patient's condition is critical and prognosis is guarded. The patient's critical condition is explained to the patient's daughter and patient's sister over the phone. They understand the patient's critical condition and would like to decide after their family meeting. Phoenix Caballero MD
[2017-09-27] MEDS ORDERED: levETIRAcetam 1,000 MG in Sodium Chloride 0.9% 100 ML IVPB SCH (18:00)
[2017-09-27] MEDS ORDERED: Midazolam 2 MG/2 ML VIAL IVP PRN (18:27)
--- NOTE | 2017-09-27 18:27 | CP.PCM.PN ---
Subjective - Date & Time of Evaluation Date of Evaluation: 09/27/17 Time of Evaluation: 18:14 - Subjective Subjective: Unresponsive Objective - Vital Signs/Intake and Output Vital Signs (last 24 hours): Temp Pulse Resp BP Pulse Ox 98.1 F 141 H 19 105/72 96 09/27/17 04:00 09/27/17 17:32 09/27/17 17:32 09/27/17 17:32 09/27/17 17:32 Intake and Output: 09/27/17 09/27/17 06:59 18:59 Intake Total 1300.2 474.2 Output Total 830 160 Balance 470.2 314.2 - Medications Medications: Current Medications Acetaminophen (Tylenol 650mg/20.3ml Solution Ud) 650 mg NG Q6 PRN PRN Reason: Temperature Last Admin: 09/21/17 07:17 Dose: 650 mg Artificial Tears (Lacri-Lube) 1 gm OS Q6H PRN PRN Reason: Sedation Last Admin: 09/06/17 20:10 Dose: 1 gm Diltiazem HCl (Cardizem) 60 mg PO Q6H EUSEBIO Last Admin: 09/27/17 14:18 Dose: 60 mg Famotidine (Pepcid) 20 mg IVP Q12 EUSEBIO Last Admin: 09/27/17 09:53 Dose: 20 mg Heparin Sodium (Porcine) (Heparin) 5,000 units SC Q12 EUSEBIO Last Admin: 09/27/17 09:55 Dose: 5,000 units Fluconazole (Diflucan Iv 200 Mg/100 Ml Ns) 100 mls @ 100 mls/hr IVPB DAILY [facility] Last Admin: 09/27/17 10:17 Dose: 100 mls/hr Propofol (Diprivan) 1,000 mg in 100 mls @ 4.998 mls/hr IV .Q20H1M PRN; Protocol ; 12.4 MCG/KG/MIN PRN Reason: TITRATE PER MD ORDER Last Admin: 09/27/17 13:17 Dose: 30.02 mcg/kg/min, 12.1 mls/hr Diltiazem HCl 125 mg/ Dextrose 125 mls @ 15 mls/hr IV .Q8H20M PRN; 15 MG/HR PRN Reason: Protocol Last Titration: 09/25/17 11:00 Dose: 0 mg/hr, 0 mls/hr Sodium Chloride (Sodium Chloride 0.9%) 1,000 mls @ 75 mls/hr IV .[id number] [facility] Last Admin: 09/27/17 13:17 Dose: 75 mls/hr Levetiracetam 1,000 mg/ Sodium (Chloride) 110 mls @ 440 mls/hr IVPB Q12H EUSEBIO Meropenem 1 gm/ Sodium (Chloride) 100 mls @ 100 mls/hr IVPB Q8 [facility] Last Admin: 09/27/17 14:19 Dose: 100 mls/hr Fentanyl Citrate 2,500 mcg/ (Sodium Chloride) 250 mls @ 13.99 mls/hr IV .[id number] EUSEBIO; 2 MCG/KG/HR PRN Reason: Protocol Last Admin: 09/27/17 17:45 Dose: 2 mcg/kg/hr, 13.99 mls/hr Metoprolol Tartrate (Lopressor) 25 mg PO Q8H [facility] Last Admin: 09/27/17 14:18 Dose: 25 mg Scopolamine (Transderm-Scop) 1 patch TD Q3D [facility] Last Admin: 09/26/17 21:51 Dose: 1 patch Thiamine HCl (Vitamin B1 Inj) 100 mg IV DAILY [facility] Last Admin: 09/27/17 09:54 Dose: 100 mg - Labs Labs: 09/27/17 04:00 09/27/17 04:00 PT 16.9 SECONDS (9.7-12.2) H 09/18/17 14:01 INR 1.5 09/18/17 14:01 APTT 33 SECONDS (21-34) 09/18/17 14:01 - Constitutional Appears: Chronically Ill - Head Exam Head Exam: ATRAUMATIC, NORMAL INSPECTION, NORMOCEPHALIC - Eye Exam Pupil Exam: Fixed - ENT Exam Additional comments: ETT - Neck Exam Neck Exam: Normal Inspection - Respiratory Exam Additional comments: On MV - Cardiovascular Exam Cardiovascular Exam: Tachycardia, Irregular Rhythm - GI/Abdominal Exam GI & Abdominal Exam: Diminished Bowel Sounds - Rectal Exam Rectal Exam: Deferred - Back Exam Back Exam: NORMAL INSPECTION - Neurological Exam Neurological Exam: Motor Sensory Deficit Neuro motor strength exam: Left Upper Extremity: 0, Right Upper Extremity: 0, Left Lower Extremity: 0, Right Lower Extremity: 0 - Psychiatric Exam Psychiatric exam: Flat Affect - Skin Skin Exam: Pallor Assessment and Plan - Assessment and Plan (Free Text) Assessment: Patient remains unreponsive to stimuli on full life support. Family meeting held attended by patient's daughter, sister and mother, Pediatric Cardiologist Cheri and myself. Along side patient's daughter was her step father for support. I reviewed patient's clinical condition and elicit family's thoughts and expectations of care provided. The daughter, and the rest of family jordon intention of keeping patient comfortable as much as possible. We reviewed the poor prognosis and futility of further agreesive approach as seen by many Doctors involved in patient's care. Daughter admitted having very difficult time deciding as she felt she still needed her mother by her side. She also aknowledged her mother's suffering and poor quality of life due to severity of conditions. I offered family talks to Doctor Patrick, the Accountant Assistant before they make any decision. Family agreed. After talking to the Doctor Nguyen, daughter Holland came over and stated family decided on removing the life support. I shared their decision with Doctor Gracia who concurred. Pastoral care offered and accepted by the family. Berievement cart provided for family's refreshment. I offered support. Daughter cried but stated she felt better now knowing her mother would not suffer any more. HUI signed calling for DNR/DNI. Impression * Patient is terminally sick and family wishes for the comfort care only * HUI signed, copy on chart Suggestion * Agree with allowing of natural * Family support
[2017-09-27] MEDS ORDERED: diaZEpam 10 mg/2 ml Inj IVP PRN (20:24)
--- NOTE | 2017-09-28 02:44 | PN ---
SUBJECTIVE: The patient was seen and examined at bedside in rounds this morning. The patient's mental status remains the same, intubated, unresponsive. PHYSICAL EXAMINATION: VITAL SIGNS: Blood pressure 114/82, pulse is in 120s and 130s, respirations 19, on 50% FiO2, tidal volume 400, rate of 50 and PEEP of 5. Temperature 99.6 degrees Fahrenheit. Intake is 3302 and output is 2010. HEENT: Pupils sluggishly reacting to light. No icterus. Involuntary movements decreased today. ET tube and gastric tube in the oral cavity. NECK: Supple. Tracheal site with dressing in place. LUNGS: Bilateral vesicular breath sounds. No wheezing, basilar crackles. CARDIOVASCULAR: S1, S2 present. Tachycardic. ABDOMEN: Soft, nontender. Bowel sounds are present. CENTRAL NERVOUS SYSTEM: Unresponsive, intubated. Not moving any of the extremities. Not responding to deep painful stimuli. EXTREMITIES: No edema. MEDICATIONS: Include Tylenol, artificial tears, Cardizem, Diflucan, meropenem, vancomycin, IV fluids, Pepcid, thiamine. LABORATORY DATA: Labs from this morning, WBC 11.5, hemoglobin 9.6, hematocrit 30.2, and platelets 261. Sodium 134, potassium 3.5, chloride 99, bicarbonate 28, BUN 2, creatinine 0.2, glucose 83, calcium 9.0, phosphorus 3.4, magnesium 1.5, total bilirubin 1.2, AST 19, ALT 28, alkaline phosphatase 105, total protein 6.8, and albumin 2.6. 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 I spoke to the patient's daughter yesterday evening and also the patient's aunt, who were planning to come to the hospital today. I was notified by the ICU nurse that the family was there, palliative care nurse spoke to the patient's family, who agreed for terminal extubation. As per the patient's family wishes, the patient was terminally extubated. I spoke to the ICU nurse around 8:00 p.m. As per ICU nurse, the patient was having seizures. The patient is already on fentanyl drip as Ativan and morphine are unavailable. The patient was given one dose of diazepam to control seizures. The patient's family is at bedside as per the ICU . We will continue with comfort measures as per the patient's family wishes. Phoenix Caballero MD
--- NOTE | 2017-09-28 10:16 | CP.PCM.PN ---
Subjective - Date & Time of Evaluation Date of Evaluation: 09/28/17 Time of Evaluation: 09:50 - Subjective Subjective: Progress note dictated # [id number] Objective - Vital Signs/Intake and Output Vital Signs (last 24 hours): Temp Pulse Resp BP Pulse Ox 98 F 147 H 18 114/82 96 09/28/17 00:00 09/28/17 07:00 09/28/17 07:00 09/27/17 18:00 09/27/17 17:32 Intake and Output: 09/28/17 09/28/17 06:59 18:59 Intake Total 1293 Output Total 700 Balance 593 - Medications Medications: Current Medications Fentanyl Citrate 2,500 mcg/ (Sodium Chloride) 250 mls @ 13.99 mls/hr IV .[id number] EUSEBIO; 2 MCG/KG/HR PRN Reason: Protocol Last Admin: 09/28/17 02:50 Dose: 10 mcg/kg/hr, 69.98 mls/hr Lorazepam (Ativan) 2 mg IVP Q1H PRN PRN Reason: Seizure activity Last Admin: 09/27/17 20:38 Dose: 2 mg - Labs Labs: 09/27/17 04:00 09/27/17 04:00 PT 16.9 SECONDS (9.7-12.2) H 09/18/17 14:01 INR 1.5 09/18/17 14:01 APTT 33 SECONDS (21-34) 09/18/17 14:01
--- NOTE | 2017-09-28 12:09 | CP.CCUPN ---
CCU Subjective - Physician Review Subjective (Free Text): As per family life sustaining treatment was stopped yesterday. Patient terminally extubated. Patient to be transferred to a private room on med/ surg floor. Patient to receive comfort care. CCU Objective - Vital Signs / Intake & Output Vital Signs (Last 4 hours): Vital Signs Pulse Resp 09/28/17 11:00 137 H 22 09/28/17 10:00 138 H 18 09/28/17 09:00 134 H 18 Intake and Output (Last 8hrs): Intake & Output 09/27/17 09/28/17 09/28/17 22:59 06:59 14:59 Intake Total 927.3 1036 335 Output Total 720 480 0 Balance 207.3 556 335 Intake: IV 325 500 Intake, IV Amount 602.3 536 335 Right Distal Port 36.3 Internal Jugular Right Proximal Port 341 536 335 Internal Jugular Right Wrist 225 Output: Urine 720 480 Urethral (Andino) 720 480 Emesis 0 Other: # Bowel Movements 1 0 - Physical Exam Head: Positive for: Atraumatic, Normocephalic Pupils: Positive for: Sluggish Extroacular Muscles: Negative for: EOMI Mouth: Positive for: Moist Mucous Membranes Respiratory/Chest: Positive for: Good Air Exchange, Rhonchi, Other ( subcutaneous emphysema ) Cardiovascular: Positive for: Normal S1, S2, Tachycardic Abdomen: Positive for: Distention, Normal Bowel Sounds. Negative for: Tenderness Upper Extremity: Negative for: Edema Lower Extremity: Negative for: Edema Neurological: Negative for: GCS=15, CN II-XII Intact, Speech Normal Skin: Positive for: Normal Color Psychiatric: Negative for: Alert, Oriented x 3 - Medications Active Medications: Active Medications Generic Name Dose Route Start Last Admin Trade Name Freq PRN Reason Stop Dose Admin Fentanyl Citrate 2,500 mcg/ 250 mls @ 13.99 mls/hr 09/27/17 16:30 09/28/17 10 :30 Sodium Chloride IV 10 mcg/kg/hr .[id number] EUSEBIO 69.98 mls/hr Protocol Administration 2 MCG/KG/HR Lorazepam 2 mg 09/27/17 20:30 09/27/17 20:38 Ativan IVP 2 mg Q1H PRN Administration Seizure activity - Patient Studies Lab Studies: Microbiology Studies 09/22/17 11:00 Blood Culture - Final Blood-Venous NO GROWTH AFTER 5 DAYS Gram Stain - Final TEST NOT PERFORMED 09/22/17 11:30 Blood Culture - Final Blood-Venous NO GROWTH AFTER 5 DAYS Gram Stain - Final TEST NOT PERFORMED Lab Studies 09/28/17 09/27/17 09/27/17 Range/Units 05:51 23:54 17:47 POC Glucose (mg/dL) 79 89 81 (65-110) mg/dL Laboratory Results - last 24 hr 09/27/17 09/27/17 09/28/17 17:47 23:54 05:51 POC Glucose (mg/dL) 81 89 79 Fingerstick Blood Sugar Results: 123 Critical Care Progress Note - Nutrition Nutrition: Nutrition Category Date Time Status NPO Diet [DIET] Diets 09/18/17 Breakfast Active
--- NOTE | 2017-09-28 23:16 | PN ---
DATE: 09/28/2017 SUBJECTIVE: The patient was seen and examined at bedside. Events from last night noted. The patient remains unresponsive on non-rebreather, extubated terminally last night. PHYSICAL EXAMINATION: VITAL SIGNS: Pulse is in the range of 140s to 150s, respirations in 17 to 20. No blood pressure was recorded. Intake was 3160, output was 2200 mL. HEENT: Pupils sluggishly reacting to light. No icterus. No oral thrush. NECK: Supple, with tracheal site dressing in place. LUNGS: Bilateral vesicular breath sounds. No wheezing. Bilateral basilar crackles heard. CARDIOVASCULAR: S1 and S2 present, regular, tachycardic. ABDOMEN: Soft, nontender. CENTRAL NERVOUS SYSTEM: Sedated with fentanyl drip, unresponsive, not moving any of the extremities. EXTREMITIES: No edema. LABORATORY DATA: Include glucose 101, 81, 89, 79, 75. No other labs were done. CURRENT MEDICATIONS: Include Ativan 2 mg IV push q.1 hour p.r.n. for seizure activities, morphine drip as needed to keep her comfortable. 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 The patient is terminally extubated yesterday evening by the family members who were at bedside. After prolonged conversation with Palliative Care and ICU attending, the patient is started on fentanyl drip last night which was switched to morphine drip this afternoon. Continue with non-rebreather. We will keep her comfortable, give Ativan as needed for seizure activity. As per family's wishes, we will not do any blood tests, and will not give any nasogastric feeds. Continue with oxygenation. I discussed with patient's daughter over the phone and discussed with RN, discussed with patient's aunt who is at bedside. Discussed with Case Management. The patient's family would like to continue with supportive care. As per Case Management, the patient may not be a candidate for hospice. We will monitor the patient closely. We will follow up with the patient's daughter regarding the patient's condition. Phoenix Caballero MD [facility] # [id number]
--- NOTE | 2017-09-29 14:56 | CP.PCM.PN ---
Subjective - Date & Time of Evaluation Date of Evaluation: 09/29/17 Time of Evaluation: 14:56 - Subjective Subjective: Progress note dictated #[id number] Objective - Vital Signs/Intake and Output Vital Signs (last 24 hours): Temp Pulse Resp BP Pulse Ox 99.9 F H 139 H 16 92/59 L 96 09/29/17 13:49 09/29/17 13:49 09/29/17 13:49 09/29/17 13:49 09/27/17 17:32 Intake and Output: 09/29/17 09/29/17 06:59 18:59 Intake Total 114.8 332.1 Output Total 1400 300 Balance -1285.2 32.1 - Medications Medications: Current Medications Morphine Sulfate 250 mg/ (Sodium Chloride) 250 mls @ 0 mls/hr IV .Q0M PRN; Per Protocol PRN Reason: Protocol Last Admin: 09/29/17 14:01 Dose: 15 mg/hr, 15 mls/hr Lorazepam (Ativan) 2 mg IVP Q1H PRN PRN Reason: Seizure activity Last Admin: 09/27/17 20:38 Dose: 2 mg - Labs Labs: 09/27/17 04:00 09/27/17 04:00 PT 16.9 SECONDS (9.7-12.2) H 09/18/17 14:01 INR 1.5 09/18/17 14:01 APTT 33 SECONDS (21-34) 09/18/17 14:01
[2017-09-29 16:39] VITALS: BP 101/63; PULSE 142; O2SAT 100
[2017-09-29 19:27] VITALS: RESP 20; TEMP 99.2
[2017-09-30] MEDS ORDERED: Acetaminophen 650mg/20.3ml solution UD PO ONE (02:13)
--- NOTE | 2017-09-30 02:31 | PN ---
DATE: 09/29/2017 SUBJECTIVE: The patient remains on 100% nonrebreather, on morphine drip. PHYSICAL EXAMINATION: VITAL SIGNS: Blood pressure 101/63, pulse in 140s, temperature 99.2, O2 sat 100% on nonrebreather mask. HEENT: Pupils sluggishly reacting to light. No icterus. Positive pallor. No oral thrush. NECK: Supple. Tracheal collar with dressing in place. LUNGS: Bilateral vesicular breath sounds. Bilateral basilar crackles heard. CARDIOVASCULAR: S1 and S2 present, regular, tachycardic. CENTRAL NERVOUS SYSTEM: Unresponsive, not moving any extremities, on morphine drip. EXTREMITIES: No edema. Palpable peripheral pulses. MEDICATIONS: Include morphine drip, Ativan 2 mg IV push q. 4 hours p.r.n. for seizure activity. ASSESSMENT AND PLAN: Young female with ethyl alcohol abuse, drug abuse, status post cardiac arrest, anoxic encephalopathy, sepsis, anemia, status post tracheostomy, tracheoesophageal fistula, underwent terminal extubation on 09/27/2017. The patient remains on morphine drip. The patient is comfortable on morphine drip. We will continue with comfort care as per the patient's family's wishes. Phoenix Caballero MD
--- NOTE | 2017-09-30 04:42 | CP.PCM.PRO ---
<Mary Cruz - Last Filed: 09/30/17 05:01> Pronouncement of Note - Clinical Findings Physical Exam: No Response Verbal/Painful Stimuli, Absent Peripheral Pulses{ Carotid & Femoral}, Absent Heart & Breath Sounds, No Pupillary Light Reflex, No Corneal Reflex, Pupils Fixed & Dilated, Absence of Vital Signs - Pronouncement Time Time of Pronouncement of : 04:35 - Notifications Pronouncement Notifications: Family Notified, Atending Notified Email Marketing Assistant Notified: Yes <Tal Hogan - Last Filed: 09/30/17 05:56> Pronouncement of Note - [place] [id number]
== END 2017-09-30 12:01 | DRG 878 ==
LOC: C.ER 18:56 → C.9I 20:51 → C.6T 09-29 14:37
PROVIDERS: ADMIT Internal Medicine; ATTEND Internal Medicine
PROC: 5A1955Z Respiratory Ventilation, Greater than 96 Consecutive Hours (ICD-10-PCS; 2017-08-30)
PROC: 6A4Z0ZZ Hypothermia, Single (ICD-10-PCS; 2017-08-30)
PROC: 05HM33Z Insertion of Infusion Device into Right Internal Jugular Vein, Percutaneous Approach (ICD-10-PCS; 2017-08-31)
PROC: 3E0G76Z Introduction of Nutritional Substance into Upper GI, Via Natural or Artificial Opening (ICD-10-PCS; 2017-08-31)
PROC: 30233N1 Transfusion of Nonautologous Red Blood Cells into Peripheral Vein, Percutaneous Approach (ICD-10-PCS; 2017-09-04)
PROC: 30233K1 Transfusion of Nonautologous Frozen Plasma into Peripheral Vein, Percutaneous Approach (ICD-10-PCS; 2017-09-18)
PROC: 0B110F4 Bypass Trachea to Cutaneous with Tracheostomy Device, Open Approach (ICD-10-PCS; principal; 2017-09-20)
PROC: 0BJ08ZZ Inspection of Tracheobronchial Tree, Via Natural or Artificial Opening Endoscopic (ICD-10-PCS; 2017-09-20)
PROC: 0BH17EZ Insertion of Endotracheal Airway into Trachea, Via Natural or Artificial Opening (ICD-10-PCS; 2017-09-24)
DX: I46.9 Cardiac arrest, cause unspecified (principal); J96.01 Acute respiratory failure with hypoxia; A41.01 Sepsis due to Methicillin susceptible Staphylococcus aureus; J86.0 Pyothorax with fistula; J18.9 Pneumonia, unspecified organism; G93.1 Anoxic brain damage, not elsewhere classified; E46 Unspecified protein-calorie malnutrition; D69.6 Thrombocytopenia, unspecified; G40.901 Epilepsy, unspecified, not intractable, with status epilepticus; E87.1 Hypo-osmolality and hyponatremia; G82.50 Quadriplegia, unspecified; B37.49 Other urogenital candidiasis; E87.6 Hypokalemia; K86.0 Alcohol-induced chronic pancreatitis; E83.42 Hypomagnesemia; E83.39 Other disorders of phosphorus metabolism; D50.9 Iron deficiency anemia, unspecified; F10.129 Alcohol abuse with intoxication, unspecified; I47.1 Supraventricular tachycardia; K86.2 Cyst of pancreas; J39.8 Other specified diseases of upper respiratory tract; R13.10 Dysphagia, unspecified; T81.82XA Emphysema (subcutaneous) resulting from a procedure, initial encounter; Z51.5 Encounter for palliative care; Z66 Do not resuscitate; F32.9 Major depressive disorder, single episode, unspecified; D25.9 Leiomyoma of uterus, unspecified; G62.1 Alcoholic polyneuropathy; L30.9 Dermatitis, unspecified; Y65.3 Endotracheal tube wrongly placed during anesthetic procedure; Z53.09 Procedure and treatment not carried out because of other contraindication; F10.229 Alcohol dependence with intoxication, unspecified; F12.90 Cannabis use, unspecified, uncomplicated; Y90.0 Blood alcohol level of less than 20 mg/100 ml; R26.81 Unsteadiness on feet; F17.200 Nicotine dependence, unspecified, uncomplicated; Z91.81 History of falling; Z87.01 Personal history of pneumonia (recurrent); Z99.3 Dependence on wheelchair; Z91.018 Allergy to other foods